=== PATIENT | female | born 1960 | race Caucasian/White ===

== ENCOUNTER 2017-08-28 10:07 | Emergency (ER) | payer SELFPAY ==
[~2017-08-28] VITALS: Ht 162.6 cm; Wt 114.8 kg
[~2017-08-28 10:07] MED LIST: ALBU17AE3 IH; BUPR150T6 PO; BUPR75TA5 PO; CYCL5TAB PO; DCS100C PO; FLUT1DIS26 IH; GLUC-132 PO; HCTZ12.5T PO; HYDR-3454 PO; HYDR25TA4 PO; IBUP800T26 PO; LOSA25TA5 PO; MELA1TAB11 PO; MULT-974 PO; OMEP-10 PO; PRX20T PO; RABE20TA PO; TERB125G PO; TERB250T10 PO; TRAM50TA2 PO
--- OUTSIDE RECORDS SUMMARY | 2017-08-28 10:14 | XMS REPORT ---
Author Author JENNIFER CANCINO [facility] Address [address] [place] [address] Care Team Providers Care Criminal Justice Social Worker Name Role Phone JENNIFER CANCINO Unavailable PROBLEMS Type Condition ICD9-CM Code LDB60-BS Code Onset Dates Condition Status SNOMED Code Problem Edema, unspecified type R60.9 Active 547569731 Problem Mild persistent asthma without complication J45.30 Active 471697481 Problem Arthralgia, unspecified joint M25.50 Active 02682436 Problem Essential hypertension I10 Active 54526602 Problem Gastroesophageal reflux disease with esophagitis K21.0 Active 250734939 ALLERGIES Unknown Allergies SOCIAL HISTORY No smoking Hx information available PLAN OF CARE VITAL SIGNS MEDICATIONS Medication Instructions Dosage Frequency Start Date End Date Duration Status Tramadol HCl 50 mg TAKE ONE TABLET BY MOUTH THREE TIMES DAILY PRN 28 days Active RESULTS No Results PROCEDURES No Known procedures IMMUNIZATIONS No Known Immunizations
--- OUTSIDE RECORDS SUMMARY | 2017-08-28 10:14 | XMS REPORT ---
Author Author JENNIFER CANCINO [facility] Address [address] [place] [address] Care Team Providers Care Bead Forming Machine Operator Name Role Phone JENNIFER CANCINO Unavailable PROBLEMS Type Condition ICD9-CM Code MOU00-ZW Code Onset Dates Condition Status SNOMED Code Problem Seasonal allergic rhinitis due to pollen J30.1 Active 47919268 Problem Essential hypertension I10 Active 24139858 Problem Arthralgia, unspecified joint M25.50 Active 87086170 Problem Edema, unspecified type R60.9 Active 557338045 Problem Mild persistent asthma without complication J45.30 Active 707780777 Problem Gastroesophageal reflux disease with esophagitis K21.0 Active 201186437 ALLERGIES Unknown Allergies SOCIAL HISTORY No smoking Hx information available PLAN OF CARE VITAL SIGNS MEDICATIONS Medication Instructions Dosage Frequency Start Date End Date Duration Status Tramadol HCl 50 mg TAKE ONE TABLET BY MOUTH THREE TIMES DAILY PRN 28 days Active RESULTS No Results PROCEDURES No Known procedures IMMUNIZATIONS No Known Immunizations
--- OUTSIDE RECORDS SUMMARY | 2017-08-28 10:15 | XMS REPORT ---
Author Author JENNIFER CANCION Organization [employer] Address Unknown Phone Unavailable Care Team Providers Care Spaghetti Press Helper Name Role Phone JENNIFER CANCINO CP Unavailable Allergies No Known Allergies Problems Problem Type Condition Code Onset Dates Condition Status Problem Mild persistent asthma without complication J45.30 Active Problem Essential hypertension I10 Active Problem Edema, unspecified type R60.9 Active Problem Gastroesophageal reflux disease with esophagitis K21.0 Active Problem Arthralgia, unspecified joint M25.50 Active Medications Medication Code System Code Instructions Start Date End Date Status Dosage Tramadol HCl [facility] [address]-74 50 mg TAKE ONE TABLET BY MOUTH THREE TIMES DAILY PRN Results No Known Results Summary Purpose eClinicalWorks Submission
--- OUTSIDE RECORDS SUMMARY | 2017-08-28 10:15 | XMS REPORT ---
Author Author JENNIFER CANCINO Organization [facility] Address [address] [place] [address] Care Team Providers Care Food Service Team Member Name Role Phone JULITA JENNIFER Unavailable PROBLEMS Type Condition ICD9-CM Code JAD07-CP Code Onset Dates Condition Status SNOMED Code Problem Seasonal allergic rhinitis due to pollen J30.1 Active 54384594 Problem Essential hypertension I10 Active 52734393 Problem Arthralgia, unspecified joint M25.50 Active 66689919 Problem Edema, unspecified type R60.9 Active 971500898 Problem Mild persistent asthma without complication J45.30 Active 764006243 Problem Gastroesophageal reflux disease with esophagitis K21.0 Active 920901987 ALLERGIES No Information SOCIAL HISTORY Never Assessed PLAN OF CARE VITAL SIGNS MEDICATIONS Medication Instructions Dosage Frequency Start Date End Date Duration Status Tramadol HCl 50 mg TAKE ONE TABLET BY MOUTH THREE TIMES DAILY PRN 28 days Active RESULTS No Results PROCEDURES No Known procedures IMMUNIZATIONS No Known Immunizations MEDICAL (GENERAL) HISTORY Type Description Date Medical History hypertension Medical History asthma Medical History depression Medical History mood disorder Medical History hx of alcohol abuse Surgical History section 1989 Surgical History Cholecystectomy 2013 Surgical History echocardiagram 01/2016 Hospitalization History , surgeries 1989
--- OUTSIDE RECORDS SUMMARY | 2017-08-28 10:15 | XMS REPORT ---
Author JENNIFER Richards Organization [employer] Address Unknown Phone Unavailable Care Team Providers Care Scorer Helper Name Role Phone JENNIFER CANCINO CP Unavailable Allergies No Known Allergies Problems Problem Type Condition Code Onset Dates Condition Status Problem Calculus of gallbladder without mention of cholecystitis or obstruction 574.20 Active Problem Pain in joint, ankle and foot 719.47 Active Problem Asthma 493.90 Active Problem Dermatophytosis of nail 110.1 Active Problem Unspecified gastritis and gastroduodenitis without mention of hemorrhage 535.50 Active Problem Plantar fascial fibromatosis 728.71 Active Medications No Known Medications Results No Known Results Summary Purpose [employer]ClinicalWorks Submission
--- OUTSIDE RECORDS SUMMARY | 2017-08-28 10:15 | XMS REPORT ---
Author JENNIFER Richards [facility] eClinical[employer] Address Unknown Phone Unavailable Care Team Providers Care Forklift Material Handler Name Role Phone JENNIFER CANCINO CP Unavailable Allergies, Adverse Reactions, Alerts Substance Reaction Event Type Naprosyn itching Drug Allergy Micardis Info Not Available Drug Allergy Hydrocodone Bitartrate itching Drug Allergy Celebrex swelling Drug Allergy Doxycycline scalp rash Drug Allergy Problems Problem Type Condition Code Onset Dates Condition Status Problem Calculus of gallbladder without mention of cholecystitis or obstruction 574.20 Active Problem Pain in joint, ankle and foot 719.47 Active Problem Asthma 493.90 Active Problem Dermatophytosis of nail 110.1 Active Assessment Pain in left knee M25.562 Active Problem Unspecified gastritis and gastroduodenitis without mention of hemorrhage 535.50 Active Problem Plantar fascial fibromatosis 728.71 Active Medications Medication Code System Code Instructions Start Date End Date Status Dosage Losartan Potassium [facility] [address]-02 25 MG Once a day 1 tablet ProAir HFA [facility] [address]-88 90 mcg/actuation 4 times a day August 30, 2014 2 puffs Hydrochlorothiazide [facility] [address]-51 25 MG Once a day November 16, 2013 1 tablet Omeprazole [facility] [address]-22 20 MG Once a day 1 capsule Albuterol Sulfate [facility] [address]-97 2.5 mg /3 mL (0.083 %) August 30, 2014 inhale 3 milliliters (2.5 mg) by nebulization route 4 times per day PRN for wheezing or cough Paxil [facility] [address]-27 40 MG Orally Once a day 1 tablet in the morning Cyclobenzaprine HCl [facility] [address]-53 5 MG Orally 2 times a day 1 tablet Tramadol HCl [facility] [address]-50 50 MG TAKE ONE TABLET BY MOUTH THREE TIMES DAILY PRN Advair Diskus [facility] [address]-31 250-50 MCG/DOSE Inhalation Twice a day December 01, 2014 1 puff Ibuprofen NDC [address]-20 800 MG Orally Three times a day 1 tablet Wellbutrin XL [facility] [address]-61 150 MG Orally Once a day 1 tablet in the morning Procedures Procedure Coding System Code Date Office Visit, Est Pt., Level 3 CPT-4 55531 Jun 20, 2015 X-RAY EXAM OF KNEE, 1 OR 2 CPT-4 31475 Jun 20, 2015 Vital Signs Date/Time: Jun 20, 2015 Temperature 97.7 F Weight 271.6 lbs Height 64 in BMI 46.61 Index Blood Pressure Diastolic 85 mmHg Blood Pressure Systolic 140 mmHg Cardiac Monitoring Heart Rate 88 bpm Results No Known Results Summary Purpose eClinicalWorks Submission
--- OUTSIDE RECORDS SUMMARY | 2017-08-28 10:15 | XMS REPORT ---
Author Author JENNIFER CANCINO [facility] Address [address] [place] [address] Care Team Providers Care Rand Butter Name Role Phone JENNIFER CANCINO Unavailable PROBLEMS Type Condition ICD9-CM Code DXH39-FP Code Onset Dates Condition Status SNOMED Code Problem Edema, unspecified type R60.9 Active 651944067 Problem Mild persistent asthma without complication J45.30 Active 767302311 Problem Arthralgia, unspecified joint M25.50 Active 55737806 Problem Essential hypertension I10 Active 22054527 Problem Gastroesophageal reflux disease with esophagitis K21.0 Active 678012987 ALLERGIES Unknown Allergies SOCIAL HISTORY No smoking Hx information available PLAN OF CARE VITAL SIGNS MEDICATIONS Medication Instructions Dosage Frequency Start Date End Date Duration Status Tramadol HCl 50 mg TAKE ONE TABLET BY MOUTH THREE TIMES DAILY PRN 20 days Active RESULTS No Results PROCEDURES No Known procedures IMMUNIZATIONS No Known Immunizations
--- OUTSIDE RECORDS SUMMARY | 2017-08-28 10:16 | XMS REPORT ---
Author Author EMIL SHRESTHA Organization [employer] Address Unknown Phone Unavailable Care Team Providers Care Auto Parts Professional Name Role Phone EMIL SHRESTHA CP Unavailable Allergies, Adverse Reactions, Alerts Substance [...] Problem Dermatophytosis of nail 110.1 Active Assessment Upper respiratory symptom R09.89 Active Problem Unspecified gastritis and gastroduodenitis without mention of hemorrhage 535.50 Active Problem Plantar fascial fibromatosis 728.71 Active Medications Medication Code System Code Instructions Start Date End Date Status Dosage ProAir HFA [facility] [address]-33 90 mcg/actuation 4 times a day August 30, 2014 2 puffs Losartan Potassium [facility] [address]-43 25 MG 1 time a day TAKE ONE TABLET Wellbutrin XL [facility] [address]-65 150 MG Orally Once a day 1 tablet in the morning Paxil [facility] [address]-69 40 MG Orally Once a day 1 tablet in the morning Omeprazole [facility] 17934921091 20 MG TAKE ONE CAPSULE BY MOUTH ONCE DAILY BEFORE A MEAL Tramadol HCl [facility] [address]-75 50 MG TAKE ONE TABLET BY MOUTH THREE TIMES DAILY PRN Hydrochlorothiazide [facility] [address]-25 25 mg 1 TAB orally once a day November 16, 2013 take 1 tablet (25 mg) by oral route once daily Albuterol Sulfate [facility] [address]-54 2.5 mg /3 mL (0.083 %) August 30, 2014 inhale 3 milliliters (2.5 mg) by nebulization route 4 times per day PRN for wheezing or cough Advair Diskus [facility] [address]-66 250-50 MCG/DOSE Inhalation Twice a day December 01, 2014 1 puff Cyclobenzaprine HCl [facility] [address]-40 5 MG Orally 2 times a day 1 tablet Ibuprofen [facility] [address]-35 800 MG Orally Three times a day 1 tablet Procedures Procedure Coding System Code Date Office Visit, Est Pt., Level 3 CPT-4 95053 May 28, 2015 MEASURE BLOOD OXYGEN LEVEL CPT-4 58655 May 28, 2015 Vital Signs Date/Time: May 28, 2015 Temperature 97.3 F Weight 274 lbs Height 64 in Oximetry 97 % Blood Pressure Diastolic 90 mmHg Blood Pressure Systolic 132 mmHg Cardiac Monitoring Heart Rate 73 bpm BMI 47.03 Index Results No Known Results Summary Purpose eClinicalWorks Submission
--- OUTSIDE RECORDS SUMMARY | 2017-08-28 10:16 | XMS REPORT ---
Author Author JENNIFER CANCINO Organization [employer] Address Unknown Phone Unavailable Care Team Providers Care Radiography Technician Name Role Phone JENNIFER CANCINO CP Unavailable Allergies No Known Allergies Problems Problem Type Condition Code Onset Dates Condition Status Problem Mild persistent asthma without complication J45.30 Active Problem Essential hypertension I10 Active Problem Edema, unspecified type R60.9 Active Assessment Mild persistent asthma without complication J45.30 Active Problem Gastroesophageal reflux disease with esophagitis K21.0 Active Problem Arthralgia, unspecified joint M25.50 Active Medications Medication Code System Code Instructions Start Date End Date Status Dosage Incruse Ellipta [facility] [address]-96 62.5 MCG/INH Inhalation Once a day 1 puff Results No Known Results Summary Purpose eClinicalWorks Submission
--- OUTSIDE RECORDS SUMMARY | 2017-08-28 10:16 | XMS REPORT ---
Author Author JENNIFER CANCINO Organization [facility] Address [address] [place] [address] Care Team Providers Care Outside Installer Apprentice Name Role Phone JULITA JENNIFER Unavailable PROBLEMS Type Condition ICD9-CM Code RDW60-IN Code Onset Dates Condition Status SNOMED Code Problem Seasonal allergic rhinitis due to pollen J30.1 Active 13974711 Problem Essential hypertension I10 Active 63936132 Problem Arthralgia, unspecified joint M25.50 Active 15303845 Problem Edema, unspecified type R60.9 Active 877043056 Problem Mild persistent asthma without complication J45.30 Active 974224337 Problem Gastroesophageal reflux disease with esophagitis K21.0 Active 964025648 ALLERGIES No Information SOCIAL HISTORY Never Assessed PLAN OF CARE VITAL SIGNS MEDICATIONS Medication Instructions Dosage Frequency Start Date End Date Duration Status Albuterol Sulfate 2.5 mg /3 mL (0.083 %) inhale 3 milliliters (2.5 mg) by nebulization route 4 times per day PRN for wheezing or cough Aug, Active Spiriva HandiHaler 18 MCG Inhalation Once a day 1 capsule 24h Aug, 30 days Active RESULTS No Results PROCEDURES No Known procedures IMMUNIZATIONS No Known Immunizations MEDICAL (GENERAL) HISTORY Type Description Date Medical History hypertension Medical History asthma Medical History depression Medical History mood disorder Medical History hx of alcohol abuse Surgical History section 1989 Surgical History Cholecystectomy 2013 Surgical History echocardiagram 01/2016 Hospitalization History , surgeries 1989
--- OUTSIDE RECORDS SUMMARY | 2017-08-28 10:16 | XMS REPORT ---
Author Author JENNIFER CANCINO Organization [facility] Address [address] [place] [address] Care Team Providers Care Attraction Worker Name Role Phone JENNIFER CANCINO Unavailable PROBLEMS Type Condition ICD9-CM Code LAH29-WP Code Onset Dates Condition Status SNOMED Code Problem Seasonal allergic rhinitis due to pollen J30.1 Active 36704583 Problem Essential hypertension I10 Active 43245561 Problem Arthralgia, unspecified joint M25.50 Active 67124970 Problem Edema, unspecified type R60.9 Active 816726751 Problem Mild persistent asthma without complication J45.30 Active 070138257 Problem Gastroesophageal reflux disease with esophagitis K21.0 Active 161362268 ALLERGIES No Information SOCIAL HISTORY Never Assessed PLAN OF CARE VITAL SIGNS MEDICATIONS Medication Instructions Dosage Frequency Start Date End Date Duration Status Tramadol HCl 50 MG Orally 2 times a day as needed TAKE ONE TABLET BY MOUTH THREE TIMES [...]
--- OUTSIDE RECORDS SUMMARY | 2017-08-28 10:16 | XMS REPORT ---
Author Author JENNIFER CANCINO Organization [employer] Address Unknown Phone Unavailable Care Team Providers Care Dyer And Washer Name Role Phone JENNIFER CANCINO CP Unavailable [...] Date End Date Status Dosage Tramadol HCl [facility] [address]-23 50 MG TAKE ONE TABLET BY MOUTH THREE TIMES DAILY PRN Results No Known Results Summary Purpose eClinicalWorks Submission
--- OUTSIDE RECORDS SUMMARY | 2017-08-28 10:17 | XMS REPORT ---
Author JENNIFER Richards Organization [employer] Address Unknown Phone Unavailable Care Team Providers Care Cashier Office Name Role Phone JENNIFER CANCINO CP Unavailable [...]
--- OUTSIDE RECORDS SUMMARY | 2017-08-28 10:17 | XMS REPORT ---
Author Author JENNIFER CANCINO Organization [employer] Address Unknown Phone Unavailable Care Team Providers Care Ticket Taker Ferryboat Name Role Phone JENNIFER CANCINO CP Unavailable [...] Date End Date Status Dosage Tramadol HCl [facility] [address]-43 50 mg Orally TAKE ONE TABLET BY MOUTH THREE TIMES DAILY PRN Results No Known Results Summary Purpose eClinicalWorks Submission
--- OUTSIDE RECORDS SUMMARY | 2017-08-28 10:17 | XMS REPORT ---
Author JENNIFER iRchards [facility] eClinicalWorks Address Unknown Phone Unavailable Care Team Providers Care Health Program Specialist Name Role Phone JENNIFER CANCINO CP Unavailable [...] Problem Edema, unspecified type R60.9 Active Assessment Restrictive lung disease J98.4 Active Problem Gastroesophageal reflux disease with esophagitis K21.0 Active Problem Arthralgia, unspecified joint M25.50 Active Medications Medication Code System Code Instructions Start Date End Date Status Dosage Proventil HFA [facility] [address]-23 108 (90 Base) MCG/ACT Inhalation every 4 hrs Feb 07, 2016 2 puffs as needed Tramadol HCl [facility] [address]-44 50 mg Orally TAKE ONE TABLET BY MOUTH THREE TIMES DAILY PRN Omeprazole [facility] [address]-08 20 mg Once a day 1 capsule Losartan Potassium [facility] [address]-35 25 MG Once a day 1 tablet Cyclobenzaprine HCl [facility] [address]-02 5 MG Orally 2 times a day 1 tablet Advair Diskus [facility] [address]-75 250-50 MCG/DOSE Inhalation Twice a day December 01, 2014 1 puff Ibuprofen [facility] [address]-20 800 MG Orally Three times a day 1 tablet Hydrochlorothiazide [facility] [address]-37 50 mg Orally Once a day Feb 07, 2016 1 tablet Wellbutrin XL [facility] [address]-36 150 MG Orally Once a day 1 tablet in the morning Paxil [facility] [address]-32 40 MG Orally Once a day 1 tablet in the morning Albuterol Sulfate [facility] [address]-27 2.5 mg /3 mL (0.083 %) August 30, 2014 inhale 3 milliliters (2.5 mg) by nebulization route 4 times per day PRN for wheezing or cough Procedures Procedure Coding System Code Date Office Visit, Est Pt., Level 3 CPT-4 98756 Apr 28, 2016 Vital Signs Date/Time: Apr 28, 2016 Cardiac Monitoring Heart Rate 72 bpm Weight 270.5 lbs Height 64 in BMI 46.43 Index Blood Pressure Diastolic 100 mmHg Blood Pressure Systolic 150 mmHg Results No Known Results Summary Purpose eClinicalWorks Submission
--- OUTSIDE RECORDS SUMMARY | 2017-08-28 10:17 | XMS REPORT ---
Author MANISH Taylor [facility] eClinicalWorks Address Unknown Phone Unavailable Care Team Providers Care Senior Bioinformatics Scientist Name Role Phone MANISH CONNOR CP Unavailable Allergies, Adverse Reactions, Alerts Substance Reaction Event Type Naprosyn itching Drug Allergy Micardis Info Not Available Drug Allergy Hydrocodone Bitartrate itching Drug Allergy Celebrex swelling Drug Allergy Doxycycline scalp rash Drug Allergy Problems Problem Type Condition Code Onset Dates Condition Status Assessment Arthralgia, unspecified joint M25.50 Active Assessment Mild persistent asthma without complication J45.30 Active Assessment Gastroesophageal reflux disease with esophagitis K21.0 Active Assessment Major depressive disorder with single episode, remission status unspecified F32.9 Active Problem Mild persistent asthma without complication J45.30 Active Problem Essential hypertension I10 Active Problem Edema, unspecified type R60.9 Active Assessment Edema, unspecified type R60.9 Active Assessment Essential hypertension I10 Active Problem Gastroesophageal reflux disease with esophagitis K21.0 Active Problem Arthralgia, unspecified joint M25.50 Active Medications Medication Code System Code Instructions Start Date End Date Status Dosage Advair Diskus [facility] [address]-30 250-50 MCG/DOSE Inhalation Twice a day December 01, 2014 1 puff Losartan Potassium [facility] [address]-25 25 MG Once a day 1 tablet Ibuprofen [facility] [address]-88 800 MG Orally Three times a day 1 tablet Hydrochlorothiazide [facility] [address]-91 25 MG Once a day November 16, 2013 1 tablet Wellbutrin XL [facility] [address]-07 150 MG Orally Once a day 1 tablet in the morning Tramadol HCl [facility] [address]-04 50 MG TAKE ONE TABLET BY MOUTH THREE TIMES DAILY PRN Albuterol Sulfate [facility] [address]-19 2.5 mg /3 mL (0.083 %) August 30, 2014 inhale 3 milliliters (2.5 mg) by nebulization route 4 times per day PRN for wheezing or cough Omeprazole [facility] [address]-83 20 MG Once a day 1 capsule Paxil [facility] [address]-44 40 MG Orally Once a day 1 tablet in the morning ProAir HFA [facility] [address]-69 90 mcg/actuation 4 times a day August 30, 2014 2 puffs Procedures Procedure Coding System Code Date Office Visit, Est Pt., Level 4 CPT-4 06588 Jan 29, 2016 CHEST X-RAY CPT-4 30941 Jan 29, 2016 Vital Signs Date/Time: Jan 29, 2016 Cardiac Monitoring Heart Rate 92 bpm Weight 272.0 lbs Height 64 in BMI 46.68 Index Blood Pressure Diastolic 99 mmHg Blood Pressure Systolic 143 mmHg Results No Known Results Summary Purpose eClinicalWorks Submission
--- OUTSIDE RECORDS SUMMARY | 2017-08-28 10:17 | XMS REPORT ---
Author MANISH Taylor [facility] eClinicalWorks Address Unknown Phone Unavailable Care Team Providers Care Youth Program Director Name Role Phone MANISH CONNOR CP Unavailable [...] Problem Edema, unspecified type R60.9 Active Assessment Sore throat J02.9 Active Assessment Post-nasal drainage R09.82 Active Problem Gastroesophageal reflux disease with esophagitis K21.0 Active Problem Arthralgia, unspecified joint M25.50 Active Medications Medication Code System Code Instructions Start Date End Date Status Dosage Ibuprofen [facility] [address]-29 800 MG Orally Three times a day 1 tablet Tramadol HCl [facility] [address]-76 50 mg TAKE ONE TABLET BY MOUTH THREE TIMES DAILY PRN Albuterol Sulfate [facility] [address]-29 2.5 mg /3 mL (0.083 %) August 30, 2014 inhale 3 milliliters (2.5 mg) by nebulization route 4 times per day PRN for wheezing or cough PredniSONE [facility] [address]-88 10 mg Orally twice a day Mar 29, 2016Mar 1 tablet Lidocaine Viscous [facility] [address]-14 2 % Mouth/Throat 4 times a day prn Mar 29, 2016 10 cc Incruse Ellipta [facility] [address]-89 62.5 MCG/INH Inhalation Once a day 1 puff Advair Diskus [facility] [address]-97 250-50 MCG/DOSE Inhalation Twice a day December 01, 2014 1 puff Paxil [facility] [address]-43 40 MG Orally Once a day 1 tablet in the morning Wellbutrin XL [facility] [address]-19 150 MG Orally Once a day 1 tablet in the morning Proventil HFA [facility] [address]-18 108 (90 Base) MCG/ACT Inhalation every 4 hrs Feb 07, 2016 2 puffs as needed Hydrochlorothiazide [facility] [address]-61 50 mg Orally Once a day Feb 07, 2016 1 tablet Omeprazole [facility] [address]-54 20 MG Once a day 1 capsule Losartan Potassium [facility] [address]-55 25 MG Once a day 1 tablet Procedures Procedure Coding System Code Date Office Visit, Est Pt., Level 3 CPT-4 76755 Mar 29, 2016 STREP A ASSAY W/OPTIC CPT-4 18827 Mar 29, 2016 Vital Signs Date/Time: Mar 29, 2016 Cardiac Monitoring Heart Rate 82 bpm Weight 267.6 lbs Height 64 in BMI 45.93 Index Blood Pressure Diastolic 88 mmHg Blood Pressure Systolic 134 mmHg Results Name Result Date Reference Range Unit Abnormality Flag STREP A (IN HOUSE) ----STREP A Negative [id number] ----Control + [id number] ----Lot # [id number] ----Exp date 08/15/[id number] Summary Purpose eClinicalWorks Submission
--- OUTSIDE RECORDS SUMMARY | 2017-08-28 10:17 | XMS REPORT ---
Author Author JENNIFER CANCINO Organization eClinicalWorks Address Unknown Phone Unavailable Care Team Providers Care Seo Associate Name Role Phone JENNIFER CANCINO CP Unavailable [...] Date End Date Status Dosage Advair Diskus [facility] [address]-33 250-50 MCG/DOSE Inhalation Twice a day December 01, 2014 1 puff Results No Known Results Summary Purpose eClinicalWorks Submission
--- OUTSIDE RECORDS SUMMARY | 2017-08-28 10:17 | XMS REPORT ---
Author Author JENNIFER CANCINO Organization eClinicalWorks Address Unknown Phone Unavailable Care Team Providers Care Retanned Leather Roller Name Role Phone JENNIFER CANCINO CP Unavailable [...] Date End Date Status Dosage Tramadol HCl [facility] [address]-04 50 MG TAKE ONE TABLET BY MOUTH THREE TIMES DAILY PRN Results No Known Results Summary Purpose eClinicalWorks Submission
--- OUTSIDE RECORDS SUMMARY | 2017-08-28 10:17 | XMS REPORT ---
Author JENNIFER Richards [facility] eClinicalWorks Address Unknown Phone Unavailable Care Team Providers Care Wood Cutter Name Role Phone JENNIFER CANCINO CP Unavailable [...] Problem Dermatophytosis of nail 110.1 Active Assessment Eustachian tube dysfunction, left H69.82 Active Problem Unspecified gastritis and gastroduodenitis without mention of hemorrhage 535.50 Active Problem Plantar fascial fibromatosis 728.71 Active Medications Medication Code System Code Instructions Start Date End Date Status Dosage Wellbutrin XL [facility][NOTE 3] [address]-63 150 MG Orally Once a day 1 tablet in the morning Paxil [facility][NOTE 3] [address]-08 40 MG Orally Once a day 1 tablet in the morning Albuterol Sulfate [facility][NOTE 3] [address]-45 2.5 mg /3 mL (0.083 %) August 30, 2014 inhale 3 milliliters (2.5 mg) by nebulization route 4 times per day PRN for wheezing or cough PredniSONE [facility][NOTE 3] [address]-05 20 MG Orally Twice a day Mar 21, 2015Mar 1 tablet with food or milk Omeprazole [facility][NOTE 3] 77548216716 20 MG TAKE ONE CAPSULE BY MOUTH ONCE DAILY BEFORE A MEAL Advair Diskus [facility][NOTE 3] [address]-23 250-50 MCG/DOSE Inhalation Twice a day December 01, 2014 1 puff Cyclobenzaprine HCl [facility][NOTE 3] [address]-92 5 MG Orally 2 times a day 1 tablet Cetirizine HCl [facility][NOTE 3] [address]-47 10 MG Orally Once a day Mar 21, 2015 1 tablet as needed Ibuprofen [facility][NOTE 3] [address]-51 800 MG Orally Three times a day 1 tablet Losartan Potassium [facility][NOTE 3] [address]-07 25 MG 1 time a day TAKE ONE TABLET ProAir HFA [facility][NOTE 3] [address]-90 90 mcg/actuation 4 times a day August 30, 2014 2 puffs Hydrochlorothiazide [facility][NOTE 3] [address]-58 25 mg 1 TAB orally once a day November 16, 2013 take 1 tablet (25 mg) by oral route once daily Procedures Procedure Coding System Code Date Office Visit, Est Pt., Level 3 CPT-4 33345 Mar 21, 2015 Vital Signs Date/Time: Mar 21, 2015 Temperature 97.2 F Weight 263.4 lbs Height 64 in BMI 45.21 Index Blood Pressure Diastolic 86 mmHg Blood Pressure Systolic 128 mmHg Cardiac Monitoring Heart Rate 72 bpm Results No Known Results Summary Purpose eClinicalWorks Submission
--- OUTSIDE RECORDS SUMMARY | 2017-08-28 10:18 | XMS REPORT ---
Author Author JENNIFER CANCINO Organization eClinicalWorks Address Unknown Phone Unavailable Care Team Providers Care Centerless Grinder Tender Name Role Phone JENNIFER CANCINO CP Unavailable Allergies No Known Allergies Problems Problem Type Condition ICD-9 Code Onset Dates Condition Status Problem Calculus [...] Date End Date Status Dosage Tramadol HCl [facility] [address]-43 50 MG PRN Mar 09, 2015 TAKE ONE TABLET BY MOUTH THREE TIMES DAILY Results No Known Results Summary Purpose eClinicalWorks Submission
--- OUTSIDE RECORDS SUMMARY | 2017-08-28 10:18 | XMS REPORT ---
Author Author EJNNIFER CANCINO Organization eClinicalWorks Address Unknown Phone Unavailable Care Team Providers Care Risk Assessor Name Role Phone JENNIFER CANCINO CP Unavailable [...] Tramadol HCl [facility] [address]-10 50 MG TAKE ONE TABLET BY MOUTH THREE TIMES DAILY PRN Results No Known Results Summary Purpose eClinicalWorks Submission
--- OUTSIDE RECORDS SUMMARY | 2017-08-28 10:18 | XMS REPORT ---
Author Author MANISH CONNOR [facility] Address [address] [place] [address] Care Team Providers Care Turret Lathe Tender Name Role Phone MANISH CONNOR Unavailable PROBLEMS Type Condition ICD9-CM Code [id number] Code Onset Dates Condition Status SNOMED Code Problem Edema, unspecified type R60.9 Active 756335900 Problem Mild persistent asthma without complication J45.30 Active 099075207 Problem Arthralgia, unspecified joint M25.50 Active 19974462 Problem Essential hypertension I10 Active 13476472 Problem Gastroesophageal reflux disease with esophagitis K21.0 Active 382494766 ALLERGIES Unknown Allergies SOCIAL HISTORY No smoking Hx information available PLAN OF CARE VITAL SIGNS MEDICATIONS Unknown Medications RESULTS No Results PROCEDURES No Known procedures IMMUNIZATIONS No Known Immunizations
--- OUTSIDE RECORDS SUMMARY | 2017-08-28 10:18 | XMS REPORT ---
Author JENNIFER Richards Organization eClinicalWorks Address Unknown Phone Unavailable Care Team Providers Care Chemical Processing Laborer Name Role Phone JENNIFER CANCINO CP Unavailable [...]
--- OUTSIDE RECORDS SUMMARY | 2017-08-28 10:18 | XMS REPORT ---
Author Author JENNIFER CANCINO [facility] Address [address] [place] [address] Care Team Providers Care Band Salvager Name Role Phone JENNIFER CANCINO Unavailable PROBLEMS Type Condition ICD9-CM Code [id number] Code Onset Dates Condition Status SNOMED Code Problem Seasonal allergic rhinitis due to pollen J30.1 Active 70645230 Problem Essential hypertension I10 Active 75484307 Problem Arthralgia, unspecified joint M25.50 Active 62810926 Problem Edema, unspecified type R60.9 Active 679978287 Problem Mild persistent asthma without complication J45.30 Active 296365431 Problem Gastroesophageal reflux disease with esophagitis K21.0 Active 849536592 ALLERGIES Unknown Allergies SOCIAL HISTORY No smoking Hx information available PLAN OF CARE VITAL SIGNS MEDICATIONS Unknown Medications RESULTS No Results PROCEDURES No Known procedures IMMUNIZATIONS No Known Immunizations
--- OUTSIDE RECORDS SUMMARY | 2017-08-28 10:18 | XMS REPORT ---
Author Author JENNIFER CANCINO Organization [facility] Address [address] [place] [address] Care Team Providers Care Music Department Chair Name Role Phone JENNIFER CANCINO Unavailable PROBLEMS Type Condition ICD9-CM Code [id number] Code Onset Dates Condition Status SNOMED Code Problem Seasonal allergic rhinitis due to pollen J30.1 Active 24179457 Problem Edema, unspecified type R60.9 Active 546768724 Problem Gastroesophageal reflux disease with esophagitis K21.0 Active 971412258 Problem Arthralgia, unspecified joint M25.50 Active 26897846 Problem Mild persistent asthma without complication J45.30 Active 296332322 Problem Essential hypertension I10 Active 78045993 ALLERGIES Unknown Allergies SOCIAL HISTORY No smoking Hx information available PLAN OF CARE VITAL SIGNS MEDICATIONS Medication Instructions Dosage Frequency Start Date End Date Duration Status Albuterol Sulfate 2.5 mg /3 mL (0.083 %) inhale 3 milliliters (2.5 mg) by nebulization route 4 times per day PRN for wheezing or cough Aug, Active RESULTS No Results PROCEDURES No Known procedures IMMUNIZATIONS No Known Immunizations
--- OUTSIDE RECORDS SUMMARY | 2017-08-28 10:18 | XMS REPORT ---
Author JENNIFER Richards [facility] eClinicalWorks Address Unknown Phone Unavailable Care Team Providers Care Shredder Tender Peat Name Role Phone JENNIFER CANCINO CP Unavailable Allergies, Adverse Reactions, Alerts Substance Reaction Event Type Naprosyn itching Drug Allergy Micardis Info Not Available Drug Allergy Hydrocodone Bitartrate itching Drug Allergy Celebrex swelling Drug Allergy Doxycycline scalp rash Drug Allergy Problems Problem Type Condition Code Onset Dates Condition Status Assessment Knee pain, left M25.562 Active Problem Calculus of gallbladder without mention of cholecystitis or obstruction 574.20 Active Problem Pain in joint, ankle and foot 719.47 Active Problem Asthma 493.90 Active Problem Dermatophytosis of nail 110.1 Active Assessment Costochondritis M94.0 Active Problem Unspecified gastritis and gastroduodenitis without mention of hemorrhage 535.50 Active Problem Plantar fascial fibromatosis 728.71 Active Medications Medication Code System Code Instructions Start Date End Date Status Dosage Cyclobenzaprine HCl [facility] [address]-18 5 MG Orally 2 times a day 1 tablet Omeprazole [facility] 20644070332 20 MG TAKE ONE CAPSULE BY MOUTH ONCE DAILY BEFORE A MEAL Albuterol Sulfate [facility] [address]-71 2.5 mg /3 mL (0.083 %) August 30, 2014 inhale 3 milliliters (2.5 mg) by nebulization route 4 times per day PRN for wheezing or cough ProAir HFA [facility] [address]-68 90 mcg/actuation 4 times a day August 30, 2014 2 puffs Paxil [facility] [address]-93 40 MG Orally Once a day 1 tablet in the morning Wellbutrin XL [facility] [address]-66 150 MG Orally Once a day 1 tablet in the morning Hydrochlorothiazide [facility] [address]-09 25 mg 1 TAB orally once a day November 16, 2013 take 1 tablet (25 mg) by oral route once daily Losartan Potassium [facility] [address]-20 25 MG 1 time a day TAKE ONE TABLET Tramadol HCl [facility] [address]-55 50 MG TAKE ONE TABLET BY MOUTH THREE TIMES DAILY PRN Ibuprofen [facility] [address]-77 800 MG Orally Three times a day 1 tablet Advair Diskus [facility] [address]-20 250-50 MCG/DOSE Inhalation Twice a day December 01, 2014 1 puff Procedures Procedure Coding System Code Date Office Visit, Est Pt., Level 3 CPT-4 68005 Apr 13, 2015 Vital Signs Date/Time: Apr 13, 2015 Temperature 96.6 F Weight 265 lbs Height 64 in BMI 45.48 Index Blood Pressure Diastolic 72 mmHg Blood Pressure Systolic 110 mmHg Cardiac Monitoring Heart Rate 68 bpm Results No Known Results Summary Purpose eClinicalWorks Submission
--- OUTSIDE RECORDS SUMMARY | 2017-08-28 10:19 | XMS REPORT ---
Author Author JENNIFER CANCINO Organization [facility] Address [address] [place] [address] Care Team Providers Care Speech Coach Name Role Phone JULITA JENNIFER Unavailable PROBLEMS Type Condition ICD9-CM Code [id number] Code Onset Dates Condition Status SNOMED Code Problem Seasonal allergic rhinitis due to pollen J30.1 Active 81660378 Problem Essential hypertension I10 Active 23787514 Problem Arthralgia, unspecified joint M25.50 Active 10661325 Problem Edema, unspecified type R60.9 Active 286299822 Problem Mild persistent asthma without complication J45.30 Active 018911452 Problem Gastroesophageal reflux disease with esophagitis K21.0 Active 867239232 ALLERGIES No Information SOCIAL HISTORY Never Assessed PLAN OF CARE VITAL SIGNS MEDICATIONS Medication Instructions Dosage Frequency Start Date End Date Duration Status Spiriva Respimat 1.25 MCG/ACT Inhalation Once a day 2 puffs 24h Aug, Active RESULTS No Results PROCEDURES No Known procedures IMMUNIZATIONS No Known Immunizations MEDICAL (GENERAL) HISTORY Type Description Date Medical History hypertension Medical History asthma Medical History depression Medical History mood disorder Medical History hx of alcohol abuse Surgical History section 1989 Surgical History Cholecystectomy 2013 Surgical History echocardiagram 01/2016 Hospitalization History , surgeries 1989
--- OUTSIDE RECORDS SUMMARY | 2017-08-28 10:19 | XMS REPORT ---
Author Author JENNIFER CANCINO Organization eClinicalWorks Address Unknown Phone Unavailable Care Team Providers Care Paper Machine Back Tender Name Role Phone JENNIFER CANCINO CP [...] Date End Date Status Dosage Tramadol HCl [facility] [address]-76 50 MG TAKE ONE TABLET BY MOUTH THREE TIMES DAILY PRN Results No Known Results Summary Purpose eClinicalWorks Submission
--- OUTSIDE RECORDS SUMMARY | 2017-08-28 10:19 | XMS REPORT ---
Author Author MANISH CONNOR [facility] Address [address] [place] [address] Care Team Providers Care Journeyman Molder Name Role Phone CONNOR MANISH Unavailable PROBLEMS Type Condition ICD9-CM Code DEF25-XO Code Onset Dates Condition Status SNOMED Code Problem Edema, unspecified type R60.9 Active 203969738 Problem Mild persistent asthma without complication J45.30 Active 710347138 Problem Arthralgia, unspecified joint M25.50 Active 60105311 Assessment Mild persistent asthma without complication J45.30 Feb, Active 708225064 Problem Essential hypertension I10 Active 62107227 Problem Gastroesophageal reflux disease with esophagitis K21.0 Active 048755838 ALLERGIES Unknown Allergies SOCIAL HISTORY No smoking Hx information available PLAN OF CARE VITAL SIGNS MEDICATIONS Unknown Medications RESULTS No Results PROCEDURES Procedure Date Ordered Related Diagnosis Body Site PULMONARY FUNCTION TEST (IN-HOUSE) 2016-02-28 N/A RESPIRATORY FLOW VOLUME LOOP Feb 28, 2016 SPIROMETRY Feb 28, 2016 NEB/I DEMO Feb 28, 2016 IMMUNIZATIONS No Known Immunizations
--- OUTSIDE RECORDS SUMMARY | 2017-08-28 10:19 | XMS REPORT ---
Author Author JENNIFER CANCINO Organization eClinicalWorks Address Unknown Phone Unavailable Care Team Providers Care Senior Strategy Manager Name Role Phone JENNIFER CANCINO CP Unavailable [...] Date End Date Status Dosage Tramadol HCl [facility] [address]-26 50 MG TAKE ONE TABLET BY MOUTH THREE TIMES DAILY PRN Results No Known Results Summary Purpose eClinicalWorks Submission
--- OUTSIDE RECORDS SUMMARY | 2017-08-28 10:20 | XMS REPORT ---
Author Author GEETA MANISH Organization [facility] Address [address] [place] [address] Care Team Providers Care Banquet Server On Call Name Role Phone WARNER CONNORE Unavailable PROBLEMS Type Condition ICD9-CM Code ZVO19-GA Code Onset Dates Condition Status SNOMED Code Assessment Gastroesophageal reflux disease without esophagitis K21.9 Feb, Active 593859013 Assessment Major depressive disorder with single episode, remission status unspecified F32.9 Feb, Active 69157117 Problem Edema, unspecified type R60.9 Active 051222958 Problem Mild persistent asthma without complication J45.30 Active 834980859 Problem Arthralgia, unspecified joint M25.50 Active 34525936 Assessment Edema, unspecified type R60.9 Feb, Active 608024417 Problem Essential hypertension I10 Active 16466173 Problem Gastroesophageal reflux disease with esophagitis K21.0 Active 908904185 ALLERGIES Substance Reaction Event Type Date Status Naprosyn itching Drug Allergy Feb, Active Micardis Unknown Drug Allergy Feb, Active Hydrocodone Bitartrate itching Drug Allergy Feb, Active Celebrex swelling Drug Allergy Feb, Active Doxycycline scalp rash Drug Allergy Feb, Active SOCIAL HISTORY No smoking Hx information available PLAN OF CARE VITAL SIGNS Height 64 in 2016-02-07 Weight 269.6 lbs 2016-02-07 Heart Rate 76 bpm 2016-02-07 Respiratory Rate 20 2016-02-07 BMI 46.27 kg/m2 2016-02-07 Blood pressure systolic 130 mmHg 2016-02-07 Blood pressure diastolic 86 mmHg 2016-02-07 MEDICATIONS Medication Instructions Dosage Frequency Start Date End Date Duration Status Wellbutrin XL 150 MG Orally Once a day 1 tablet in the morning 24h Active Ibuprofen 800 MG Orally Three times a day 1 tablet 8h Active Hydrochlorothiazide 50 mg Orally Once a day 1 tablet 24h Feb, 30 day(s) Active Albuterol Sulfate 2.5 mg /3 mL (0.083 %) inhale 3 milliliters (2.5 mg) by nebulization route 4 times per day PRN for wheezing or cough Aug, Active Proventil HFA 108 (90 Base) MCG/ACT Inhalation every 4 hrs 2 puffs as needed 4h Feb, Active Omeprazole 20 MG 1 capsule 24h Active Paxil 40 MG Orally Once a day 1 tablet in the morning 24h Active Advair Diskus 250-50 MCG/DOSE Inhalation Twice a day 1 puff 12h Nov, Active Incruse Ellipta 62.5 MCG/INH Inhalation Once a day 1 puff 24h Active Losartan Potassium 25 MG 1 tablet 24h Active Tramadol HCl 50 MG TAKE ONE TABLET BY MOUTH THREE TIMES DAILY PRN Active RESULTS No Results PROCEDURES Procedure Date Ordered Related Diagnosis Body Site Office Visit, Est Pt., Level 4 Feb 07, 2016 IMMUNIZATIONS No Known Immunizations
--- OUTSIDE RECORDS SUMMARY | 2017-08-28 10:20 | XMS REPORT ---
Author JENNIFER Richards Organization eClinicalWorks Address Unknown Phone Unavailable Care Team Providers Care Service Center Specialist Name Role Phone JENNIFER CANCINO CP [...]
--- OUTSIDE RECORDS SUMMARY | 2017-08-28 10:20 | XMS REPORT ---
Author Author JENNIFER CANCINO [facility] Address [address] [place] [address] Care Team Providers Care Calender Wind Up Helper Name Role Phone JENNIFER CANCINO Unavailable PROBLEMS Type Condition ICD9-CM Code [id number] Code Onset Dates Condition Status SNOMED Code Problem Seasonal allergic rhinitis due to pollen J30.1 Active 08896567 Problem Essential hypertension I10 Active 90629311 Problem Arthralgia, unspecified joint M25.50 Active 22812419 Problem Edema, unspecified type R60.9 Active 348024421 Problem Mild persistent asthma without complication J45.30 Active 745219478 Problem Gastroesophageal reflux disease with esophagitis K21.0 Active 111693018 ALLERGIES No Information SOCIAL HISTORY Never Assessed PLAN OF CARE VITAL SIGNS MEDICATIONS Unknown [...]
--- OUTSIDE RECORDS SUMMARY | 2017-08-28 10:20 | XMS REPORT ---
Author Author JENNIFER CANCINO Organization [facility] Address [address] [place] [address] Care Team Providers Care Edge Inker Name Role Phone JULITA JENNIFER Unavailable PROBLEMS Type Condition ICD9-CM Code CFP33-TW Code Onset Dates Condition Status SNOMED Code Problem Seasonal allergic rhinitis due to pollen J30.1 Active 96383684 Problem Essential hypertension I10 Active 87312908 Problem Arthralgia, unspecified joint M25.50 Active 25964213 Problem Edema, unspecified type R60.9 Active 913369872 Problem Mild persistent asthma without complication J45.30 Active 625254854 Problem Gastroesophageal reflux disease with esophagitis K21.0 Active 867625916 ALLERGIES No Information SOCIAL HISTORY Never Assessed PLAN OF CARE VITAL SIGNS MEDICATIONS Medication Instructions Dosage Frequency Start Date End Date Duration Status Tramadol HCl 50 MG Orally 1 tablet 3 times a day as needed 1 tablet Nov, 28 days Active RESULTS No Results PROCEDURES No Known procedures IMMUNIZATIONS No Known Immunizations MEDICAL (GENERAL) HISTORY Type Description Date Medical History hypertension Medical History asthma Medical History depression Medical History mood disorder Medical History hx of alcohol abuse Surgical History section 1989 Surgical History Cholecystectomy 2013 Surgical History echocardiagram 01/2016 Hospitalization History , surgeries 1989
[2017-08-28 10:40] LABS: BASOPHILS % (AUTO) 0 % (0-10); EOSINOPHILS # (AUTO) 0.1 10^3/uL (0.0-0.3); EOSINOPHILS % (AUTO) 1 % (0-10); HEMATOCRIT 38 % (35-52); HEMOGLOBIN 12.2 G/DL (11.5-16.0); LYMPHOCYTES # (AUTO) 1.8 X 10^3 (1.0-4.0); LYMPHOCYTES % (AUTO) 15 % (12-44); MEAN CORPUSCULAR HEMOGLOBIN 27 PG (25-34); MEAN CORPUSCULAR HGB CONC 33 G/DL (32-36); MEAN CORPUSCULAR VOLUME 84 FL (80-99); MONOCYTES # (AUTO) 1.1 X 10^3 (0.0-1.0); MONOCYTES % (AUTO) 9 % (0-12); NEUTROPHILS # (AUTO) 8.7 X 10^3 (1.8-7.8); NEUTROPHILS % (AUTO) 74 % (42-75); PLATELET COUNT 590 10^3/uL (130-400); RED BLOOD COUNT 4.48 10^6/uL (4.35-5.85); RED CELL DISTRIBUTION WIDTH 13.1 % (10.0-14.5); WHITE BLOOD COUNT 11.7 10^3/uL (4.3-11.0)
[2017-08-28] MEDS ORDERED: ASPIRIN 81 MG CHEW (CHILDREN'S ASA) PO ONE (10:45)
[2017-08-28] MEDS ORDERED: KETOROLAC 30 MG/ML VIAL IVP ONE (10:45)
[2017-08-28 10:53] LABS: INR 1.2 (0.8-1.4)
--- NOTE | 2017-08-28 10:55 | Diagnostic Imaging Report ---
INDICATION: Right-sided pain. COMPARISON: None. FINDINGS: Single frontal view of the chest is obtained. Heart size is normal. The pulmonary vessels appear unremarkable. There is no pneumothorax, mediastinal widening or pleural fluid. Lungs are clear. IMPRESSION: Negative chest. Dictated by: Dictated on workstation # [id number]
[2017-08-28 11:02] LABS: ALANINE AMINOTRANSFERASE 25 U/L (0-55); ALBUMIN 4.1 GM/DL (3.2-4.5); ALKALINE PHOSPHATASE 137 U/L (40-136); AMYLASE 15 U/L (25-125); BILIRUBIN,TOTAL 0.4 MG/DL (0.1-1.0); BUN/CREATININE RATIO 16; CALCIUM 9.9 MG/DL (8.5-10.1); CARBON DIOXIDE 29 MMOL/L (21-32); CHLORIDE 99 MMOL/L (98-107); CREATINE KINASE 77 U/L (29-168); CREATININE SERUM 0.91 MG/DL (0.60-1.30); GFR ESTIMATED > 60; GLUCOSE 106 MG/DL (70-105); LIPASE 6 U/L (8-78); MAGNESIUM 1.8 MG/DL (1.8-2.4); POTASSIUM 3.8 MMOL/L (3.6-5.0); SODIUM 136 MMOL/L (135-145); TOTAL PROTEIN 8.4 GM/DL (6.4-8.2)
[2017-08-28 11:11] LABS: CREATINE KINASE MB 1.8 NG/ML (<6.6)
[2017-08-28] MEDS ORDERED: CATHETER FLUSH 10 ML SYR IV PRN (11:30)
[2017-08-28] MEDS ORDERED: NS 250 ML (IVPB) BAG IV ONE (11:30)
[2017-08-28] MEDS ORDERED: IOHEXOL 350 MG/ML 150 ML (OMNIPAQUE 350) VIAL IV ONE (11:30)
[2017-08-28 12:04] LABS: BILIRUBIN,URINE NEGATIVE (NEGATIVE); CLARITY,URINE CLEAR; COLOR,URINE YELLOW; GLUCOSE, URINE (UA) NEGATIVE (NEGATIVE); KETONES,URINE 1+ (NEGATIVE); LEUKOCYTE ESTERASE ,URINE 2+ (NEGATIVE); NITRITE,URINE NEGATIVE (NEGATIVE); PH,URINE 6.5 (5-9); PROTEIN,URINE 2+ (NEGATIVE); UROBILINOGEN,URINE NORMAL (NORMAL)
[2017-08-28 12:18] LABS: AMPHETAMINE SCREEN, URINE NEGATIVE (NEGATIVE); BARBITURATE SCREEN URINE NEGATIVE (NEGATIVE); BENZODIAZEPINES SCREEN URINE NEGATIVE (NEGATIVE); CANNABINOID SCREEN, URINE NEGATIVE (NEGATIVE); COCAINE SCREEN URINE NEGATIVE (NEGATIVE); METHADONE STAT NEGATIVE (NEGATIVE); METHAMPHETAMINE SCREEN URINE S NEGATIVE (NEGATIVE); OPIATE SCREEN URINE NEGATIVE (NEGATIVE); OXYCODONE STAT NEGATIVE (NEGATIVE); PROPOXYPHENE STAT NEGATIVE (NEGATIVE); TRICYCLIC ANTIDEPRESSANTS SCRE NEGATIVE (NEGATIVE)
[2017-08-28 12:24] LABS: BACTERIA,URINE FEW /HPF
--- NOTE | 2017-08-28 13:15 | Diagnostic Imaging Report ---
INDICATION: Right upper quadrant pain. FINDINGS: CHEST: Post IV contrast-enhanced CT angio chest utilizes PE protocol with 3-D reconstructions. The pulmonary arterial branches are widely patent. There is no PE. The thoracic aorta is patent and nonaneurysmal. There is no pleural or pericardial effusion. There is no pneumothorax. The lungs are clear. No mass or lymphadenopathy. No chest wall fracture deformity. ABDOMEN AND PELVIS: Post IV contrast-enhanced CT abdomen and pelvis performed with sagittal and coronal reconstructions. Lateral and inferior to the right hepatic lobe is a thick-walled complex fluid collection with rim enhancement inferiorly shown to be extraperitoneal. This distorts the contour of the right hepatic lobe laterally, and an element of subcapsular fluid could not be excluded. When the process is measured in aggregate, its maximal dimensions are 11 cm AP x about 3.6 cm transverse. Its dimensions are largely comprised of its thickened peripheral wall with its central fluid element much smaller. The liver itself appeared intrinsically unremarkable. There is no bile duct dilatation. This process is well from the postsurgical gallbladder fossa. The adrenals are negative, and the kidneys are unobstructed and appeared normal. Pancreas and spleen are unremarkable. There is no bile duct dilatation. Colon itself appeared unremarkable and is separable from the acute collection. No abdominal or pelvic free fluid. Uterus, adnexa, and urinary bladder are unremarkable. Aortoiliac and mesenteric vessels are patent and nonaneurysmal. No acute osseous pathology. A small fatty noninflamed chronic inguinal hernia is comprised solely of fat bilaterally. No demonstrated right rib fracture adjacent to the right upper quadrant collection. IMPRESSION: Lateral and inferior to the right hepatic lobe, there is a largely extraperitoneal thick-walled fluid collection suspicious for abscess. The adjacent osseous structures appeared normal, and the liver itself appeared intrinsically unremarkable. Correlate, however, for any recent trauma. Incidental fatty inguinal hernias. No bowel, biliary, or urinary tract obstruction. Negative for PE. The chest was normal. Dictated by: Dictated on workstation # [id number]
--- NOTE | 2017-08-28 14:21 | ED General ---
General Chief Complaint: General Problems/Pain Stated Complaint: CARDIAC ISSUES Nursing Triage Note: Pt here w/ multiple c/o from [facility]. Pt was seen at clinic today for R side pain and RUQ pain. Pt also c/o "flu-like symptoms" for several weeks stating that her "skin hurts" and also reports instances of esophageal narrowing for last several weeks. Pt sent to ER from [facility] for abnormal EKG per patient. Nursing Sepsis Screen: No Definite Risk Allergies and Home Medications Allergies Coded Allergies: No Known Drug Allergies (Unverified , 01/24/14) Home Medications Albuterol 17 Gm Inh, 2 PUFF IH Q4 -6H PRN for COUGH OR WHEEZE, (Reported) Bupropion Hcl 150 Mg Tablet, 150 MG PO DAILY, (Reported) Cyclobenzaprine Hcl 5 Mg Tablet, 5 MG PO TID PRN for TREMORS, (Reported) NEEDED FOR TREMORS Docusate Sodium 100 Mg Cap, 100 MG PO BID Prescribed by: DEVANTE VELASCO on 01/25/14 1442 Fluticasone/Salmeterol 1 Disk Inhp, 1 PUFF IH BID, (Reported) Glucosamine/D3/Boswellia Raisa 1 Each Tablet, 1 TAB PO BID, (Reported) Hydrochlorothiazide 25 Mg Tablet, 25 MG PO DAILY, (Reported) Hydrocodone Bit/Acetaminophen 1 Each Tablet, 1 TAB PO Q4H PRN for PAIN Prescribed by: DEVANTE VELASCO on 01/25/14 1442 Ibuprofen 800 Mg Tablet, 800 MG PO TID PRN for PAIN, (Reported) Losartan Potassium 25 Mg Tablet, 25 MG PO DAILY, (Reported) Multivitamin 1 Each Tablet, 1 TAB PO DAILY, (Reported) Paroxetine Hcl 20 Mg Tablet, 40 MG PO HS, (Reported) Pyridoxine/Melatonin 1 Tab Tablet, 3 MG PO HS, (Reported) Rabeprazole Sodium 20 Mg Tablet.dr, 20 MG PO DAILY, (Reported) Terbinafine Hcl 250 Mg Tablet, 250 MG PO DAILY, (Reported) Tramadol Hcl 50 Mg Tablet, 50 MG PO Q6H PRN for PAIN, (Reported) Past Eyijttx-Woxvfv-Dyhxjx Hx Patient Social History Alcohol Use: Denies Use Recreational Drug Use: No (prior hx of THC, crack, acid, speed - clean x 16 yrs ) Smoking Status: Never a Smoker Recent Foreign Travel: No Contact w/Someone Who Travel: No Recent Infectious Disease Expo: No Recent Hopitalizations: No Immunizations Up To Date Tetanus Booster (TDap): Unknown Seasonal Allergies Seasonal Allergies: No Surgeries History of Surgeries: Yes Surgeries: Section, Gallbladder Respiratory History of Respiratory Disorde: Yes Respiratory Disorders: Asthma Cardiovascular History of Cardiac Disorders: Yes Cardiac Disorders: Hypertension Neurological History of Neurological Disord: No Reproductive System Hx Reproductive Disorders: No Gastrointestinal History of Gastrointestinal Di: Yes Gastrointestinal Disorders: Gastroesophageal Reflux, Gall Bladder Disease Musculoskeletal History of Musculoskeletal Dis: No Endocrine History of Endocrine Disorders: No HEENT History of HEENT Disorders: No Cancer History of Cancer: No Psychosocial History of Psychiatric Problem: Yes Behavioral Health Disorders: Depression Integumentary History of Skin or Integumenta: No Blood Transfusions History of Blood Disorders: No Physical Exam Vital Signs Vital Signs - First Documented 08/28/17 10:20 Temp 98.4 Pulse 84 B/P (MAP) 148/105 (119) O2 Delivery Room Air Capillary Refill : Less Than 3 Seconds Progress/Results/Core Measures Suspected Sepsis Recent Fever Within 48 Hours: No Infection Criteria Present: Suspected New Infection New/Unexplained Altered Menta: No Sepsis Screen: No Definite Risk Sepsis Diagnosis: SIRS Temperature:98.4 Pulse: 84 Respiratory Rate: Laboratory Tests 08/28/17 10:23: White Blood Count 11.7H Blood Pressure 148 /105 Mean: 119 Laboratory Tests 08/28/17 10:23: Creatinine 0.91, INR Comment 1.2, Platelet Count 590H, Total Bilirubin 0.4 Results/Orders Lab Results Laboratory Tests Test 08/28/17 10:23 08/28/17 11:45 Range/Units White Blood Count 11.7 H 4.3-11.0 10^3/uL Red Blood Count 4.48 4.35-5.85 10^6/uL Hemoglobin 12.2 11.5-16.0 G/DL Hematocrit 38 35-52 % Mean Corpuscular Volume 84 80-99 FL Mean Corpuscular Hemoglobin 27 25-34 PG Mean Corpuscular Hemoglobin Concent 33 32-36 G/DL Red Cell Distribution Width 13.1 10.0-14.5 % Platelet Count 590 H 130-400 10^3/uL Mean Platelet Volume 9.0 7.4-10.4 FL Neutrophils (%) (Auto) 74 42-75 % Lymphocytes (%) (Auto) 15 12-44 % Monocytes (%) (Auto) 9 0-12 % Eosinophils (%) (Auto) 1 0-10 % Basophils (%) (Auto) 0 0-10 % Neutrophils # (Auto) 8.7 H 1.8-7.8 X 10^3 Lymphocytes # (Auto) 1.8 1.0-4.0 X 10^3 Monocytes # (Auto) 1.1 H 0.0-1.0 X 10^3 Eosinophils # (Auto) 0.1 0.0-0.3 10^3/uL Basophils # (Auto) 0.0 0.0-0.1 10^3/uL Prothrombin Time 15.0 H 12.2-14.7 SEC INR Comment 1.2 0.8-1.4 Activated Partial Thromboplast Time 37 H 24-35 SEC Sodium Level 136 135-145 MMOL/L Potassium Level 3.8 3.6-5.0 MMOL/L Chloride Level 99 98-107 MMOL/L Carbon Dioxide Level 29 21-32 MMOL/L Anion Gap 8 5-14 MMOL/L Blood Urea Nitrogen 15 7-18 MG/DL Creatinine 0.91 0.60-1.30 MG/DL Estimat Glomerular Filtration Rate > 60 BUN/Creatinine Ratio 16 Glucose Level 106 H 70-105 MG/DL Calcium Level 9.9 8.5-10.1 MG/DL Magnesium Level 1.8 1.8-2.4 MG/DL Total Bilirubin 0.4 0.1-1.0 MG/DL Aspartate Amino Transf (AST/SGOT) 25 5-34 U/L Alanine Aminotransferase (ALT/SGPT) 25 0-55 U/L Alkaline Phosphatase 137 H 40-136 U/L Total Creatine Kinase 77 29-168 U/L Creatine Kinase MB 1.8 <6.6 NG/ML Troponin I < 0.30 <0.30 NG/ML B-Type Natriuretic Peptide 17.2 <100.0 PG/ML Total Protein 8.4 H 6.4-8.2 GM/DL Albumin 4.1 3.2-4.5 GM/DL Amylase Level 15 L 25-125 U/L Lipase 6 L 8-78 U/L Serum Test, Qualitative NEGATIVE NEGATIVE Urine Color YELLOW Urine Clarity CLEAR Urine pH 6.5 5-9 Urine Specific [place] 1.020 1.016-1.022 Urine Protein 2+ H NEGATIVE Urine Glucose (UA) NEGATIVE NEGATIVE Urine Ketones 1+ H NEGATIVE Urine Nitrite NEGATIVE NEGATIVE Urine Bilirubin NEGATIVE NEGATIVE Urine Urobilinogen NORMAL NORMAL MG/DL Urine Leukocyte Esterase 2+ H NEGATIVE Urine RBC (Auto) 1+ H NEGATIVE Urine RBC 5-10 H /HPF Urine WBC 5-10 H /HPF Urine Squamous Epithelial Cells 5-10 /HPF Urine Crystals NONE /LPF Urine Bacteria FEW H /HPF Urine Casts NONE /LPF Urine Mucus SMALL H /LPF Urine Culture Indicated YES Urine Opiates Screen NEGATIVE NEGATIVE Urine Oxycodone Screen NEGATIVE NEGATIVE Urine Methadone Screen NEGATIVE NEGATIVE Urine Propoxyphene Screen NEGATIVE NEGATIVE Urine Barbiturates Screen NEGATIVE NEGATIVE Ur Tricyclic Antidepressants Screen NEGATIVE NEGATIVE Urine Phencyclidine Screen NEGATIVE NEGATIVE Urine Amphetamines Screen NEGATIVE NEGATIVE Urine Methamphetamines Screen NEGATIVE NEGATIVE Urine Benzodiazepines Screen NEGATIVE NEGATIVE Urine Cocaine Screen NEGATIVE NEGATIVE Urine Cannabinoids Screen NEGATIVE NEGATIVE My Orders Orders - TANISHA BARNES DO Continuous Ekg Monitoring (08/28/17 10:13) Ekg Tracing (08/28/17 10:13) Saline Lock/Iv-Start (08/28/17 10:31) Monitor-Rhythm Ecg Trace Only (08/28/17 10:31) Amylase (08/28/17 10:31) BNP (08/28/17 10:31) Cbc With Automated Diff (08/28/17 10:31) Comprehensive Metabolic Panel (08/28/17 10:31) Creatine Kinase (08/28/17 10:31) Creatine Kinase Mb (08/28/17 10:31) Drug Screen Stat (Urine) (08/28/17 10:31) Hcg,Qualitative Serum (08/28/17 10:31) Lipase (08/28/17 10:31) Magnesium (08/28/17 10:31) Protime With Inr (08/28/17 10:31) Partial Thromboplastin Time (08/28/17 10:31) Troponin I (08/28/17 10:31) Ua Culture If Indicated (08/28/17 10:31) Chest 1 View, Ap/Pa Only (08/28/17 10:31) Aspirin Chewable Tablet (Baby Aspirin Ch (08/28/17 10:45) Ketorolac Injection (Toradol Injection) (08/28/17 10:45) Ct Chasity Chest/Noang Abd-Pelv W (08/28/17 11:11) Iohexol Injection (Omnipaque 350 Mg/Ml 1 (08/28/17 11:30) Di Iv Start (Assessment) .on IV start (08/28/17 11:16) Sodium Chloride Flush (Catheter Flush Sy (08/28/17 11:30) Ns (Ivpb) (Sodium Chloride 0.9%) (08/28/17 11:30) Urine Culture (08/28/17 11:45) Medications Given in ED Current Medications Medications Dose Ordered Sig/Sita Route Start Time Stop Time Status Last Admin Dose Admin Aspirin 324 mg ONCE ONCE PO 08/28/17 10:45 08/28/17 10:46 DC 08/28/17 12:12 324 MG Ketorolac Tromethamine 30 mg ONCE ONCE IVP 08/28/17 10:45 08/28/17 10:46 DC 08/28/17 12:12 30 MG Vital Signs/I&O Vital Sign - Last 12Hours 08/28/17 10:20 Temp 98.4 Pulse 84 B/P (MAP) 148/105 (119) O2 Delivery Room Air Capillary Refill : Less Than 3 Seconds Blood Pressure Mean: 119 Departure Impression Impression: Primary Impression: Abdominal fluid collection Disposition: HOME, SELF-CARE Condition: Stable Departure-Patient Inst. Referrals: [facility] (PCP/Family) Primary Care Physician Patient Instructions: NO INSTRUCTIONS GIVEN Add. Discharge Instructions: ARRIVE Thursday08/31/17 AT 12:00 AT DAY SURGERY PROCEDURE AT 1:00-1:30 AND WILL STAY 1-2 HOURS POST PROCEDURE STOP ANY BLOOD THINNERS UNTIL AFTER PROCEDURE CONTINUE TRAMADOL FOR PAIN FOLLOW UP WITH [facility] NEXT WEEK FOR TEST RESULTS All discharge instructions reviewed with patient and/or family. Voiced understanding. TANISHA BARNES DO Aug 28, 2017 14:21
[2017-08-28 14:28] VITALS: BP 148/105
== END 2017-08-28 14:38 | disposition home or self-care (01) ==
LOC: EDUNIT# 10:07 → ER 10:10
DX: R18.8 Other ascites (principal); J45.909 Unspecified asthma, uncomplicated; I10 Essential (primary) hypertension; K21.9 Gastro-esophageal reflux disease without esophagitis; F32.9 Major depressive disorder, single episode, unspecified; Z79.52 Long term (current) use of systemic steroids; Z87.59 Personal history of other complications of pregnancy, childbirth and the puerperium
CPT/HCPCS: 36415; 71045; 71275; 74177; 80053; 80306; 81000; 82150; 82550; 82553; 83690; 83735; 83880; 84484; 84703; 85025; 85610; 85730; 87088; 93005; 93041; 96374

== ENCOUNTER 2017-08-31 11:54 | Day surgery (SDC) | payer SELFPAY ==
[2017-08-31] VITALS (7 sets, daily range): BP systolic 117–144; BP diastolic 73–87
[2017-08-31] MEDS ORDERED: LIDOCAINE 1% INJ 50 ML (XYLOCAINE) VIAL ONE (12:22)
[2017-08-31] MEDS ORDERED: LIDOCAINE 1% INJ 20 ML (XYLOCAINE) VIAL INJ ONE (12:30)
[2017-08-31] MEDS ORDERED: OMEP20CA12 PO (12:43)
[2017-08-31 12:48] LABS: HEMOGLOBIN 11.8 G/DL (11.5-16.0); RED BLOOD COUNT 4.24 10^6/uL (4.35-5.85); RED CELL DISTRIBUTION WIDTH 12.7 % (10.0-14.5); WHITE BLOOD COUNT 11.8 10^3/uL (4.3-11.0)
[2017-08-31 13:26] LABS: INR 1.1 (0.8-1.4); PROTHROMBIN TIME PATIENT 13.8 SEC (12.2-14.7)
[2017-08-31] MEDS ORDERED: CATHETER FLUSH 10 ML SYR IV ONE (14:45)
--- NOTE | 2017-08-31 16:21 | Diagnostic Imaging Report ---
INDICATION: Right flank fluid collection noted on recent CT. Patient presents for CT-guided aspiration. COMPARISON: Correlation is made with recent CT from 08/28/2017. FINDINGS: After informed written consent was obtained from the patient, patient was brought to the CT suite and placed on the table in the left side down decubitus position. Axial imaging through the abdomen was performed to evaluate appropriate entry site. Skin of the right flank was prepped and draped in usual sterile fashion. A small amount of 1% lidocaine was utilized for local anesthesia. A [employer] catheter was advanced into the fluid collection noted in the right flank just inferior to the right lobe of the liver. Approximately 20 cc of purulent fluid was removed. The catheter was removed and hemostasis was obtained. Followup imaging demonstrates near complete resolution of previously noted fluid collection. There is some residual phlegmonous tissue at this location. The patient tolerated the procedure well and left the department in stable condition. IMPRESSION: Successful CT-guided aspiration of the right flank fluid collection, obtaining 20 cc of purulent fluid. The fluid will be sent to lab for culture. Dictated by: Dictated on workstation # [id number]
== END 2017-08-31 15:35 | disposition home or self-care (01) ==
LOC: RAD 11:54 → SURG 14:34 → RAD 15:35
PROVIDERS: ATTEND Emergency Medicine
DX: R18.8 Other ascites (principal)
CPT/HCPCS: 36415; 77012; 85027; 85610; 85730; 87070; 87075; 87077; 87186; 87205

== ENCOUNTER → 2017-09-11 | Outpatient (CLI) | payer SELFPAY ==
[~2017-09-11] MED LIST changes: +OMEP20CA12 PO
--- NOTE | 2017-09-11 15:36 | Diagnostic Imaging Report ---
PROCEDURE: US abdomen complete. TECHNIQUE: Multiple real-time grayscale images were obtained over the abdomen in various projections. INDICATION: Right upper quadrant abdominal pain. FINDINGS: There is no evidence of focal hepatic abnormality or biliary ductal dilatation. The gallbladder is not seen and is reportedly surgically absent. Spleen has a normal appearance; however, the pancreas is largely obscured by overlying bowel. Kidneys have a normal appearance bilaterally without hydronephrosis. There is no ascites. No inferior vena caval or abdominal aortic abnormality is documented. IMPRESSION: Unremarkable abdominal ultrasound post cholecystectomy. Dictated by: Dictated on workstation # [id number]
== END ==
LOC: RAD 14:23
PROVIDERS: ATTEND Nurse Practitioner Family
DX: R10.11 Right upper quadrant pain (principal); Z90.49 Acquired absence of other specified parts of digestive tract
CPT/HCPCS: 76700

== ENCOUNTER 2017-10-06 22:35 | Emergency (ER) | payer SELFPAY ==
[~2017-10-06] VITALS: Ht 162.6 cm; Wt 113.4 kg
--- OUTSIDE RECORDS SUMMARY | 2017-10-06 22:41 | XMS REPORT ---
Author Author FOZIA BLAKE Organization [facility] Address [address] [place] [address] Care Team Providers Care Lot Attendant Name Role Phone FOZIA BLAKE Unavailable PROBLEMS Type Condition ICD9-CM Code ETN57-WH Code Onset Dates Condition Status SNOMED Code Problem Gastroesophageal reflux disease with esophagitis K21.0 Active 805724342 Problem Essential hypertension I10 Active 63062992 Problem Abnormal EKG R94.31 Active 126789595 Problem Right upper quadrant abdominal pain R10.11 Active 551784049 Problem Edema, unspecified type R60.9 Active 601404807 Problem Mild persistent asthma without complication J45.30 Active 691185255 Problem Esophageal abnormality K22.9 Active 17587949 Problem Hammer toe of right foot M20.41 Active 304717095 ALLERGIES Substance Reaction Event Type Date Status Naprosyn itching Drug Allergy Aug, Active Micardis Unknown Drug Allergy Aug, Active Hydrocodone Bitartrate itching Drug Allergy Aug, Active Celebrex swelling Drug Allergy Aug, Active Doxycycline scalp rash Drug Allergy Aug, Active ENCOUNTERS Encounter Location Date Diagnosis [facility] [address], [place] [address] Sep, [facility] [id number] [place] [address] 86792- 9840 Aug, Abscess L02.91 and BMI 40.0-44.9, adult Z68.41 [facility] [id number] [place] [address] 90728- 4155 Aug, Edema, unspecified type R60.9 [facility] [address], [place] [address] Aug, Right upper quadrant abdominal pain R10.11 ; Abnormal EKG R94.31 ; Esophageal abnormality K22.9 and BMI 40.0-44.9, adult Z68.41 [place] [id number] [place] [address] 33150- 3194 Aug, Hammer toe of right foot M20.41 and Onychomycosis B35.1 [facility] [id number] [place] [address] 69351 -8609 Aug, Myalgia M79.1 [facility] [address] [address]- [address] Aug, [place] [address] 91633- 4587 Aug, Annual physical exam Z00.00 ; BMI 40.0-44.9, adult Z68.41 ; Mild persistent asthma without complication J45.30 ; Gastroesophageal reflux disease with esophagitis K21.0 ; Acute right-sided thoracic back pain M54.6 ; Trouble breathing R06.89 and Neck pain M54.2 [place] [address] [address]41- 3062 Jul, Mild persistent asthma without complication J45.30 [place] [address] 48828- 1936 27 Jul, 2017 Edema, unspecified type R60.9 [place] [id number] [place] [address] 60154- 8642 Jun, Edema, unspecified type R60.9 [place] [id number] [place] [address] 21709- 1844 Jun, Moderate persistent asthma with exacerbation J45.41 [place] [address] 91176- 1222 May, Edema, unspecified type R60.9 [place] [id number] [place] [address] 01639- 8349 May, Moderate persistent asthma with exacerbation J45.41 and Hammer toe of right foot M20.41 [place] [id number] [place] [address] 68197- 7123 May, Moderate persistent asthma without complication J45.40 ; Dysfunction of left eustachian tube H69.82 and BMI 45.0-49.9, adult Z68.42 [place] [id number] [place] [address] 83512- 5760 Apr, Edema, unspecified type R60.9 [place] [id number] [place] [address] 81774- 4809 Mar, Edema, unspecified type R60.9 [place] [address] 52346- 9355 Feb, Edema, unspecified type R60.9 [place] [address] 26586- 1665 Jan, Edema, unspecified type R60.9 [place] [id number] [place] [address] 43155- 8638 Jan, Mild persistent asthma without complication J45.30 [place] [address] 38545- 5802 Dec, Edema, unspecified type R60.9 [place] [id number] [place] [address] 61257- 4092 Nov, Edema, unspecified type R60.9 and Essential hypertension I10 [place] [id number] [place] [address] 68523- 5910 October, Pain in left knee M25.562 [place] [address] 90987- 3824 October, Pain in left knee M25.562 [place] [id number] [place] [address] 79691- 2291 October, [place] [address] 13132- 0781 Sep, [facility] [id number] [place] [address] 08790- 7246 Sep, Mild persistent asthma without complication J45.30 [facility] [id number] [place] [address] 41728- 7185 Sep, Pain in left knee M25.562 [facility] [id number] [place] [address] 36737- 4304 Aug, Acute nasopharyngitis J00 and Seasonal allergic rhinitis due to pollen J30.1 [facility] [id number] [place] [address] 66371- 8390 16 Aug, 2016 [facility] [id number] [place] [address] 23298- 2802 Aug, Arthralgia, unspecified joint M25.50 and Pain in left knee M25.562 [facility] [id number] [place] [address] 34714- 0017 Aug, Mild persistent asthma without complication J45.30 [facility] [id number] [place] [address] 39968- 4354 Jul, Mild persistent asthma without complication J45.30 [facility] [id number] [place] [address] 17948- 9099 Jul, Pain in left knee M25.562 [facility] [id number] [place] [address] 80838- 5745 Jun, [facility] [id number] [place] [address] 23988 -2343 Jun, [facility] [id number] [place] [address] 57733- 1575 Jun, Mild persistent asthma without complication J45.30 [facility] [id number] [place] [address] 38349- 1405 May, [facility] [address], [place] [address]- 0744 Apr, Restrictive lung disease J98.4 [facility] [id number] [place] [address] 20678- 1846 Apr, [facility] [id number] [place] [address] 49748- 0640 Apr, Mild persistent asthma without complication J45.30 [facility] [id number] [place] [address] 39964 -0694 Mar, Sore throat J02.9 and Post-nasal drainage R09.82 [place] [id number] [place] [address] 03454- 6369 Mar, [facility] [id number] [place] [address] 63246- 1563 Feb, [place] [id number] [place] [address] 84787- 7059 Feb, Mild persistent asthma without complication J45.30 [facility] [address], [place] [address]- 8842 Feb, Arthralgia, unspecified joint M25.50 [facility] [id number] [place] [address] 02691- 5782 Feb, Edema, unspecified type R60.9 ; Arthralgia, unspecified joint M25.50 ; Mild persistent asthma without complication J45.30 ; Essential hypertension I10 ; Gastroesophageal reflux disease without esophagitis K21.9 and Major depressive disorder with single episode, remission status unspecified F32.9 [place] [id number] [place] [address] 07280- 6511 Jan, Edema, unspecified type R60.9 ; Essential hypertension I10 ; Mild persistent asthma without complication J45.30 ; Gastroesophageal reflux disease with esophagitis K21.0 ; Arthralgia, unspecified joint M25.50 and Major depressive disorder with single episode, remission status unspecified F32.9 [place] [id number] [place] [address]- 2947 Jan, [facility] [address] [facility] [id number] [place] [address]- 3375 Dec, [facility] [address] [facility] [id number] [place] [address]- 8120 Dec, [facility] [address] [place] [address]- 1900 Dec, [facility] [address] [facility] [id number] [place] [address]- 4765 Nov, Bilateral edema of lower extremity R60.0 [facility] [address] [place] [address]- 8062 Nov, Bilateral edema of lower extremity R60.0 [facility] WALK IN [facility] [address] [place] [address] -3791 Nov, [facility] [address], [place] [address]- 1030 Nov, [facility] [address] [place] [address]- 2471 October, [facility] [address], [place] [address]- 5006 Sep, [facility] [id number] [address]- 3146 Aug, Acute sinusitis J01.90 [facility] [address], [place] [address]- 6628 Aug, [facility] [address] 1711 Aug, [facility] [address], [place] [address]- 4030 Jul, [facility] [id number] [address]- 1767 19 Feb, 2016 Pharyngitis J02.9 [facility] [id number] [place] [address] 38252- 2520 Jul, [facility] [id number] [place] [address] 82740- 7969 Jun, Pain in left knee M25.562 [facility] [id number] [place] [address] 36151- 3166 Jun, [facility] [id number] [place] [address] 73636 -7050 May, Upper respiratory symptom R09.89 [facility] [id number] [place] [address] 76142- 7006 May, [facility] [id number] [place] [address] 11953- 0761 Apr, Costochondritis M94.0 and Knee pain, left M25.562 [facility] [id number] [place] [address] 66296- 6499 Apr, [facility] [id number] [place] [address] 35868- 6476 Mar, Eustachian tube dysfunction, left H69.82 [facility] [id number] [place] [address] 05055- 3678 Mar, [facility] [id number] [place] [address] 01212- 1217 Mar, [facility] [id number] [place] [address] 52597- 6216 Mar, [facility] [id number] [place] [address] 54005- 6640 Feb, [facility] [id number] [place] [address] 68837- 7141 Feb, [facility] [id number] [place] [address] 61332- 2235 Feb, [facility] [address], [place] [address]- 4756 Jan, Asthma 493.90 [facility] [address], [place] [address]- 9556 Dec, [facility] [address], [place] [address]- 9909 Dec, [facility] [address], [place] [address]- 6377 Dec, [facility] [address]- 6762 Dec, [facility] [address], [place] [address]- 8268 Dec, Asthma, unspecified, unspecified status 493.90 [facility] [address], [place] [address]- 8306 Nov, [facility] [address], [place] [address]- 0707 Nov, Asthma, unspecified, unspecified status 493.90 [facility] [address], [place] [address]- 1266 October, Asthma, unspecified, unspecified status 493.90 [facility] [address], [place] [address]- 4536 October, [facility] [address], [place] [address]- 8696 October, Contact dermatitis 692.9 and Candidiasis of skin 112.3 [facility] [address], [place] [address]- 0134 Sep, [facility] [address], [place] [address]- 8596 Sep, [facility] [id number] [address]- 2441 Aug, [facility] [place] [facility] [address] [id number] [place] [address]- 1229 Aug, [facility] [place] [facility] [address] [id number] [place] [address]- 5195 Aug, [facility] [place] [facility] [address] [id number] [place] [address]- 3090 Aug, [facility] [place] [facility] [address] [id number] [place] [address]- 5420 Jul, [facility] [place] [facility] [address] [id number] [place] [address]- 8128 Jul, [facility] [place] [facility] [address] [id number] [place] [address]- 6318 Jun, [facility] [place] [facility] [address] [id number] [place] [address]- 4126 Jun, [facility] [place] [facility] [address] [id number] [place] [address]- 1617 May, [facility] [place] [facility] [address] [id number] [place] [address]- 0113 May, [facility] [place] [facility] [address] [id number] [place] [address]- 3885 May, [facility] [place] [facility] [address] [id number] [place] [address]- 2647 May, [facility] [place] [facility] [address] [id number] [place] [address]- 6714 May, [facility] [place] [facility] [address] [id number] [place] [address]- 4652 May, [facility] [place] [facility] [address] [id number] [place] [address]- 9615 Apr, [facility] [place] [facility] [address] [id number] [place] 4787 Apr, [facility] [place] [facility] [address] [id number] [place] [address]- 9017 15 Feb, 2014 [facility] [place] [facility] [address] [id number] [place] [address]- 8936 15 Feb, 2014 [facility] [place] [facility] [address] [id number] [place] [address]- 5462 Feb, [facility] [place] [facility] [address] [id number] [place] [address]- 9356 Feb, [facility] [place] [facility] [address] [id number] [place] [address]- 0439 05 Feb, 2014 [facility] [place] [facility] [address] [id number] [place] [address]- 5862 05 Feb, 2014 [facility] [place] [facility] [address] [id number] [place] [address]- 9561 Jan, [facility] [place] [facility] [address] [id number] [place] [address]- 8555 Jan, [facility] [place] [facility] [address] [id number] [place] [address]- 9915 Jan, [facility] [place] [facility] [address] [id number] [place] [address]- 5945 Jan, [facility] [place] [facility] [address] [id number] [place] [address]- 4202 Jan, [facility] [place] [facility] [address] [id number] [place] [address]- 9821 Jan, [facility] [place] [facility] [address] [id number] [place] [address]- 8100 Dec, [facility] [place] [facility] [address] [id number] [place] [address]- 3703 Dec, [facility] [place] [facility] [address] [id number] [place] [address]- 8799 Nov, [facility] [place] [facility] [address] [id number] [place] [address]- 3215 Nov, [facility] [place] [facility] [address] [id number] [place] [address]- 5093 Nov, [facility] [place] [facility] [address] [id number] [place] [address]- 4653 Nov, [facility] [place] [facility] [address] [id number] [place] [address]- 5582 Nov, [facility] [place] [facility] [address] [id number] [place] [address]- 0006 Nov, [facility] [place] [facility] [address] [id number] [place] [address]- 3211 Nov, [facility] [place] [facility] [address] [id number] [place] [address]- 8578 Nov, [facility] [place] [facility] [address] [id number] [place] [address]- 5141 Nov, [facility] [place] [facility] [address] [id number] [place] [address]- 2762 Nov, [facility] [place] [facility] [address] [id number] [place] [address]- 1951 Nov, [facility] [place] [facility] [address] [id number] [place] [address]- 6079 Nov, [facility] [place] [facility] [address] [id number] [place] [address]- 1746 Nov, [facility] [place] [facility] [address] [id number] [place] [address]- 1223 October, [facility] [place] [facility] [address] [id number] [place] [address]- 5489 October, [facility] [place] [facility] [address] [id number] [place] [address]- 0170 October, [facility] [place] [facility] [address] [id number] [place] 4582 October, [facility] [place] [facility] [address] [id number] [place] [address]- 0905 Sep, [facility] [place] [facility] [address] [id number] [place] [address]- 7586 Sep, [facility] [place] [facility] [address] [id number] [place] [address]- 5485 Sep, [facility] [place] [facility] [address] [id number] [place] [address]- 4099 Sep, [facility] [place] [facility] [address] [id number] [place] [address]- 8167 Aug, [facility] [place] [facility] [address] [id number] [place] [address]- 7361 Aug, [facility] [place] [facility] [address] [id number] [place] [address]- 2456 Jul, [facility] [place] [facility] [address] [id number] [place] [address]- 5842 Jul, [facility] [place] [facility] [address] [id number] [place] [address]- 9497 Jun, [facility] [place] [facility] [address] [id number] [place] [address]- 9453 Jun, [facility] [place] [facility] [address] [id number] [place] [address]- 4317 Mar, [facility] [place] [facility] [address] [id number], [place] [address]- 3443 Mar, [facility] [place] [facility] [address] [id number], [place] [address]- 9463 Mar, [facility] [place] [facility] [address] [id number] [place] [address]- 2569 Mar, [facility] [place] [facility] [address] [id number], [place] [address]- 5081 Mar, [facility] [place] [facility] [address] [id number] [place] [address]- 1006 Feb, [facility] [place] [facility] [address] [id number] [place] [address]- 1876 Feb, [facility] [address] [id number] [place] [address]- 1545 Dec, [facility] [address] [id number] [place] [address]- 5375 Nov, [facility] [address] [id number] [place] [address]- 2956 October, [facility] [address] [id number] [place] [address]- 0309 Sep, [facility] [address] [id number] [place] [address]- 6475 Sep, [facility] [address] [id number] [place] [address]- 3193 Aug, [facility] [address] [id number] [place] [address]- 0693 Aug, [facility] [address] [id number] [place] [address]- 2833 Aug, [facility] [address] [id number] [place] [address]- 0563 Aug, [facility] [address] [id number] [place] [address]- 3341 Jun, [facility] [address] [id number] [place] [address]- 4782 Jun, [facility] [address] [id number] [place] [address] 2549 Jun, [facility] [place] [facility] [address] [id number] [place] [address] May, [facility] [place] [facility] [address] [id number] [place] [address] May, [facility] [address] [id number] [place] [address] Apr, [facility] [place] [facility] [address] [id number] [place] [address] Apr, [facility] [place] [facility] [address] [id number] [place] [address] Apr, [facility] [place] [facility] [address] [id number] [place] [address] Apr, [facility] [place] [facility] [address] [id number] [place] [address], [place] [address] Apr, [facility] [place] [facility] [address] [id number] [place] [address] Apr, [facility] [place] [facility] [address] [id number] [place] [address], [place] [address]- [address] Apr, [facility] [place] [facility] [address] [id number] [place] [address]- [address] Mar, [facility] [place] [facility] [address] [id number] [place] [address], [place] [address] 31 Mar, 2012 [facility] [place] [facility] [address] [id number] [place] [address] 18 Feb, 2012 [facility] [place] [facility] [address] [id number] [place] [address] 17 Feb, 2012 [facility] [place] [facility] [address] [id number] [place] [address]- [address] 13 Feb, 2012 [facility] [place] [facility] [address] [id number] [place] [address]- [address] 15 Jan, 2012 [facility] [place] [facility] [address] [id number] [place] [address]- [address] 14 Jan, 2012 [facility] [place] [facility] [address] [id number] [place] [address]- [address] Jan, [facility] [place] [facility] [address] [id number] [place] [address]- [address] Jan, [facility] [place] [facility] [address] [id number] [place] [address]- [address] 26 Dec, 2011 [facility] [place] [facility] [address] [id number] [place] [address]- [address] 20 Dec, 2011 [facility] [place] [facility] [address] [id number] [place] [address]- [address] 18 Dec, 2011 [facility] [place] [facility] [address] [id number] [place] [address]- [address] 17 Dec, 2011 [facility] [place] [facility] [address] [id number] [place] [address]- [address] 10 Dec, 2011 [facility] [place] [facility] [address] [id number] [place] [address] Nov, [facility] [place] [facility] [address] [id number] [place] [address] Nov, [facility] [place] [facility] [address] [id number] [place] [address]- [address] Nov, [facility] [place] [facility] [address] [id number] [place] [address] Nov, [facility] [place] [facility] [address] [id number] [place] [address] October, [facility] [place] [facility] [address] [id number] [place] [address] October, [facility] [place] [facility] [address] [id number] [place] [address] October, [facility] [place] [facility] [address] [id number] [place] [address]- [address] October, [facility] [place] [facility] [address] [id number] [place] [address]- [address] October, [facility] [place] [facility] [address] [id number] [place] [address]- [address] Sep, [facility] [place] [facility] [address] [id number] [place] [address] Sep, [facility] [place] [facility] [address] [id number] [place] [address]- [address] 12 Sep, 2011 [facility] [address] [id number] [place] [address] 11 Sep, 2011 [facility] [address] [id number] [place] [address]- [address] 03 Sep, 2011 [facility] [address] [id number] [place] [address] 29 Aug, 2011 [facility] [address] [id number] [place] [address] 28 Aug, 2011 [facility] [address] [id number] [place] [address] 27 Aug, 2011 [facility] [address] [id number] [place] [address] 26 Aug, 2011 [facility] [address] [id number] [place] [address] 23 Aug, 2011 [facility] [address] [id number] [place] [address] 20 Aug, 2011 [facility] [address] [id number] [place] [address] 19 Aug, 2011 [facility] [address] [id number] [place] [address] 17 Aug, 2011 [facility] [address] [id number] [place] [address] 18 Jun, 2011 [facility] [address] [id number] [place] [address] 12 Jun, 2011 [facility] [place] [facility] [address] [id number] [place] [address] 11 Jun, 2011 [facility] [address] [id number] [place] [address] 10 Jun, 2011 [facility] [address] [id number] [place] [address] Jun, [facility] [id number] [address] May, [facility] [id number] [address] Apr, [facility] [id number], [place] [address] October, [facility] [id number] [address] May, [facility] [address] [facility] [id number], [place] [address] May, [facility] [id number] [address] Apr, [facility] [id number], [place] [address] Jan, [facility] [id number], [place] [address] Dec, [facility] [id number], [place] [address] Sep, [facility] [id number], [place] [address] Sep, [facility] [id number] [address] Jul, [facility] [id number], [place] [address] May, [facility] [id number], [place] [address] Jan, IMMUNIZATIONS No Known Immunizations SOCIAL HISTORY Never Assessed REASON FOR VISIT Ear/Throat pain--DBennettRN, trouble swallowing since starting spiriva inhaler approx 2 months ago, has stopped spiriva PLAN OF CARE Activity Details Follow Up prn with PCP Reason: VITAL SIGNS Height 64 in 2016-08-28 Weight 268 lbs 2016-08-28 Heart Rate 80 bpm 2016-08-28 Respiratory Rate 20 2016-08-28 BMI 46.00 kg/m2 2016-08-28 Blood pressure systolic 132 mmHg 2016-08-28 Blood pressure diastolic 80 mmHg 2016-08-28 MEDICATIONS Medication Instructions Dosage Frequency Start Date End Date Duration Status Stephan HFA 108 (90 Base) MCG/ACT Inhalation every 4 hrs 2 puffs as needed 4h Feb, Active Omeprazole 20 mg 1 capsule 24h Active Paxil 40 MG Orally Once a day 1 tablet in the morning 24h Active Albuterol Sulfate 2.5 mg /3 mL (0.083 %) inhale 3 milliliters (2.5 mg) by nebulization route 4 times per day PRN for wheezing or cough Aug, Active Ibuprofen 800 MG Orally Three times a day 1 tablet 8h Active Wellbutrin XL 150 MG Orally Once a day 1 tablet in the morning 24h Active Hydrochlorothiazide 50 mg Orally Once a day 1 tablet 24h 30 Active Cyclobenzaprine HCl 5 MG TAKE ONE TABLET BY MOUTH TWICE DAILY 30 Active Advair Diskus 250-50 MCG/DOSE Inhalation Twice a day 1 puff 12h Nov, Active Losartan Potassium 25 MG 1 tablet 24h 30 Active Tramadol HCl 50 mg Orally 2 times a day as needed TAKE ONE TABLET BY MOUTH THREE TIMES DAILY PRN Active RESULTS Name Result Date Reference Range STREP A (IN HOUSE) 2016-08-28 STREP A negative Control + Lot # [id number] Exp date 12/05/17 PROCEDURES Procedure Date Ordered Result Body Site STREP A ASSAY W/OPTIC August 28, 2016 INSTRUCTIONS MEDICATIONS ADMINISTERED No Known Medications MEDICAL (GENERAL) HISTORY Type Description Date Medical History hypertension Medical History asthma Medical History depression Medical History mood disorder Medical History hx of alcohol abuse Surgical History section 1989 Surgical History Cholecystectomy 2013 Surgical History echocardiagram 01/2016 Hospitalization History , surgeries 1989
--- OUTSIDE RECORDS SUMMARY | 2017-10-06 22:42 | XMS REPORT ---
Author Author JENNIFER CANCINO Organization [facility] Address [address] [place] [address] Care Team Providers Care Principal Developer Name Role Phone JENNIFER CANCINO Unavailable PROBLEMS Type Condition ICD9-CM Code AWV09-DS Code Onset Dates Condition Status SNOMED Code Problem Gastroesophageal reflux disease with esophagitis K21.0 Active 469318472 Problem Essential hypertension I10 Active 31150825 Problem Abnormal EKG R94.31 Active 722066023 Problem Right upper quadrant abdominal pain R10.11 Active 182085968 Problem Edema, unspecified type R60.9 Active 773683838 Problem Mild persistent asthma without complication J45.30 Active 677092486 Problem Esophageal abnormality K22.9 Active 66297923 Problem Hammer toe of right foot M20.41 Active 470089099 ALLERGIES No Information ENCOUNTERS Encounter Location Date Diagnosis [place] [id number] [place] [address] 73142- 3123 Sep, [place] [id number] [place] [address] 59011- 5848 Aug, Abscess L02.91 and BMI 40.0-44.9, adult Z68.41 [place] [id number] [place] [address] 68389- 5738 Aug, Edema, unspecified type R60.9 [facility] [id number] [place] [address] 48613- 7816 Aug, Right upper quadrant abdominal pain R10.11 ; Abnormal EKG R94.31 ; Esophageal abnormality K22.9 and BMI 40.0-44.9, adult Z68.41 [facility] [id number] [place] [address] 88504- 5492 Aug, Hammer toe of right foot M20.41 and Onychomycosis B35.1 [facility] [id number] [place] [address] 13691 -1888 Aug, Myalgia M79.1 [facility] [id number] [place] [address] 92148- 0444 Aug, [place] [id number] [place] [address] 86714- 7818 Aug, Annual physical exam Z00.00 ; BMI 40.0-44.9, adult Z68.41 ; Mild persistent asthma without complication J45.30 ; Gastroesophageal reflux disease with esophagitis K21.0 ; Acute right-sided thoracic back pain M54.6 ; Trouble breathing R06.89 and Neck pain M54.2 [place] [id number] [place] [address] 71565- 3964 28 Jul, 2017 Mild persistent asthma without complication J45.30 [place] [address] 81441- 5140 Jul, Edema, unspecified type R60.9 [place] [id number] [place] [address] 29054- 1778 Jun, Edema, unspecified type R60.9 [place] [id number] [place] [address] 63093- 2956 Jun, Moderate persistent asthma with exacerbation J45.41 [place] [id number] [place] [address] 63547- 5183 May, Edema, unspecified type R60.9 [place] [id number] [place] [address] 22197- 1605 May, Moderate persistent asthma with exacerbation J45.41 and Hammer toe of right foot M20.41 [place] [id number] [place] [address] 40510- 4651 04 May, 2017 Moderate persistent asthma without complication J45.40 ; Dysfunction of left eustachian tube H69.82 and BMI 45.0-49.9, adult Z68.42 [facility] [id number] [place] [address] 62042- 0881 Apr, Edema, unspecified type R60.9 [facility] [id number] [place] [address] 92963- 7799 Mar, Edema, unspecified type R60.9 [place] [id number] [place] [address] 31362- 6222 Feb, Edema, unspecified type R60.9 [place] [id number] [place] [address] 45728- 6120 Jan, Edema, unspecified type R60.9 [place] [id number] [place] [address] 59855- 8280 Jan, Mild persistent asthma without complication J45.30 [place] [id number] [place] [address] 54321- 1377 Dec, Edema, unspecified type R60.9 [place] [id number] [place] [address] 91167- 5797 Nov, Edema, unspecified type R60.9 and Essential hypertension I10 [place] [id number] [place] [address] 39396- 7025 October, Pain in left knee M25.562 [place] [id number] [place] [address] 28239- 0127 October, Pain in left knee M25.562 [place] [id number] [place] [address] 95771- 2017 October, [place] [id number] [place] [address] 44613- 6723 Sep, [place] [id number] [place] [address] 08612- 5708 Sep, Mild persistent asthma without complication J45.30 [facility] [id number] [place] [address] 17287- 8476 Sep, Pain in left knee M25.562 [facility] [address] 39105- 8227 23 Aug, 2016 Acute nasopharyngitis J00 and Seasonal allergic rhinitis due to pollen J30.1 [facility] [id number] [place] [address] 92658- 4535 16 Aug, 2016 [facility] [address] 59371- 3952 Aug, Arthralgia, unspecified joint M25.50 and Pain in left knee M25.562 [place] [address] 60630- 0602 08 Aug, 2016 Mild persistent asthma without complication J45.30 [place] [address] 00493- 6084 Jul, Mild persistent asthma without complication J45.30 [facility] [address] 21784- 0090 Jul, Pain in left knee M25.562 [place] [address] 72814- 0212 Jun, [facility] [id number] [place] [address] 23518 -8310 Jun, [facility] [id number] [place] [address] 46987- 0231 Jun, Mild persistent asthma without complication J45.30 [facility] [id number] [place] [address] 22167- 8155 May, [place] [address] 29452- 5973 Apr, Restrictive lung disease J98.4 [place] [id number] [place] [address] 81336- 9293 Apr, [place] [address] [address]- 0712 Apr, Mild persistent asthma without complication J45.30 [facility] [id number] [place] [address] 70621 -3042 Mar, Sore throat J02.9 and Post-nasal drainage R09.82 [facility] [id number] [place] [address] 18671- 2210 Mar, [facility] [id number] [place] [address] 95773- 4209 Feb, [place] [id number] [place] [address] 81325- 3922 Feb, Mild persistent asthma without complication J45.30 [place] [id number] [place] [address] 68822- 3360 Feb, Arthralgia, unspecified joint M25.50 [place] [id number] [place] [address] 55440- 4259 Feb, Edema, unspecified type R60.9 ; Arthralgia, unspecified joint M25.50 ; Mild persistent asthma without complication J45.30 ; Essential hypertension I10 ; Gastroesophageal reflux disease without esophagitis K21.9 and Major depressive disorder with single episode, remission status unspecified F32.9 [place] [id number] [place] [address] 85502- 6850 Jan, Edema, unspecified type R60.9 ; Essential hypertension I10 ; Mild persistent asthma without complication J45.30 ; Gastroesophageal reflux disease with esophagitis K21.0 ; Arthralgia, unspecified joint M25.50 and Major depressive disorder with single episode, remission status unspecified F32.9 [place] [id number] [place] [address] 74392- 8807 Jan, [facility] [id number] [place] [address] 16835- 2998 Dec, [place] [address] [place] [address]- 7669 15 Dec, 2015 [facility] [address] [place] [address]- 9604 Dec, [facility] [address] [address]- 6839 Nov, Bilateral edema of lower extremity R60.0 [facility] [id number] [place] [address] 37693- 0032 Nov, Bilateral edema of lower extremity R60.0 [facility] [address] [facility] [id number] [address] Nov, [facility] [id number] [place] [address] 15925- 4965 Nov, [facility] [address] [address]- 4507 October, [facility] [address] [address]- 6651 Sep, [facility] [address] [address]- 5842 Aug, Acute sinusitis J01.90 [facility] [address] [address]- 2545 Aug, [facility] [address] [address]- 7492 Aug, [facility] [address] [address]- 3733 Jul, [facility] [address] 0146 Jul, Pharyngitis J02.9 [facility] [address] [address]- 8046 Jul, [facility] [address] [address]- 3401 Jun, Pain in left knee M25.562 [facility] [id number] [place] [address] 49271- 2266 Jun, [facility] [id number] [place] [address] 91652 -2931 May, Upper respiratory symptom R09.89 [facility] [id number] [place] [address] 71937- 3440 May, [facility] [id number] [place] [address] 99337- 2786 Apr, Costochondritis M94.0 and Knee pain, left M25.562 [facility] [id number] [place] [address] 51448- 5793 Apr, [facility] [id number] [place] [address] 29275- 5452 Mar, Eustachian tube dysfunction, left H69.82 [facility] [id number] [place] [address] 81420- 1250 Mar, [facility] [id number] [place] [address] 13315- 1639 Mar, [facility] [id number] [place] [address] 45467- 6986 Mar, [facility] [id number] [place] [address] 86791- 3296 Feb, [facility] [id number] [place] [address] 04814- 2233 Feb, [facility] [id number] [place] [address] 05484- 9267 Feb, [facility] [id number] [place] [address] 69005- 2783 Jan, Asthma 493.90 [facility] [id number] [place] [address] 62395- 9567 Dec, [facility] [id number] [address]- 9491 Dec, [facility] [address], [place] [address]- 1409 Dec, [facility] [address], [place] [address]- 3625 Dec, [facility] [address], [place] [address]- 2669 Dec, Asthma, unspecified, unspecified status 493.90 [facility] [address], [place] [address]- 8936 Nov, [facility] [address], [place] [address]- 9149 Nov, Asthma, unspecified, unspecified status 493.90 [facility] [address], [place] [address]- 4494 October, Asthma, unspecified, unspecified status 493.90 [facility] [address], [place] [address]- 2905 October, [facility] [id number] 8654 October, Contact dermatitis 692.9 and Candidiasis of skin 112.3 [facility] [id number], [place] [address]- 9978 Sep, [facility] [id number], [place] [address]- 4148 Sep, [facility] [id number] [address]- 6902 Aug, [facility] [id number], [place] [address]- 4226 Aug, [facility] [id number] [address]- 0606 Aug, [facility] [place] [facility] [address] [id number] [place] [address]- 4468 Aug, [facility] [place] [facility] [address] [id number] [place] [address]- 8473 Jul, [facility] [place] [facility] [address] [id number] [place] [address]- 8945 Jul, [facility] [place] [facility] [address] [id number] [place] [address]- 8143 Jun, [facility] [place] [facility] [address] [id number] [place] [address]- 4881 Jun, [facility] [place] [facility] [address] [id number] [place] [address]- 0672 May, [facility] [place] [facility] [address] [id number] [place] [address]- 4054 May, [facility] [place] [facility] [address] [id number] [place] [address]- 0533 May, [facility] [place] [facility] [address] [id number] [place] [address]- 6887 May, [facility] [place] [facility] [address] [id number] [place] [address]- 0746 May, [facility] [place] [facility] [address] [id number] [place] [address]- 3686 May, [facility] [place] [facility] [address] [id number] [place] [address]- 9844 Apr, [facility] [place] [facility] [address] [id number] [place] [address]- 7543 Apr, [facility] [place] [facility] [address] [id number] [place] [address]- 3468 Feb, [facility] [place] [facility] [address] [id number] [place] [address]- 7305 15 Feb, 2014 [facility] [place] [facility] [address] [id number] [place] [address]- 1064 Feb, [facility] [place] [facility] [address] [id number] [place] [address]- 3024 Feb, [facility] [place] [facility] [address] [id number] [place] [address]- 4417 Feb, [facility] [place] [facility] [address] [id number] [place] [address]- 9652 Feb, [facility] [place] [facility] [address] [id number] [place] [address]- 2117 Jan, [facility] [place] [facility] [address] [id number] [place] [address]- 2687 Jan, [facility] [place] [facility] [address] [id number] [place] [address]- 5633 Jan, [facility] [place] [facility] [address] [id number] [place] [address]- 1531 Jan, [facility] [place] [facility] [address] [id number] [place] [address]- 5230 Jan, [facility] [place] [facility] [address] [id number] [place] [address]- 2735 Jan, [facility] [place] [facility] [address] [id number] [place] [address]- 4340 Dec, [facility] [place] [facility] [address] [id number] [place] [address]- 0899 Dec, [facility] [place] [facility] [address] [id number] [place] [address]- 4691 Nov, [facility] [place] [facility] [address] [id number] [place] [address]- 2944 Nov, [facility] [place] [facility] [address] [id number] [place] [address]- 6832 Nov, [facility] [place] [facility] [address] [id number] [place] [address]- 3660 Nov, [facility] [place] [facility] [address] [id number] [place] [address]- 0679 Nov, [facility] [place] [facility] [address] [id number] [place] [address]- 2930 Nov, [facility] [place] [facility] [address] [id number] [place] [address]- 2413 Nov, [facility] [place] [facility] [address] [id number] [place] [address]- 3671 Nov, [facility] [place] [facility] [address] [id number] [place] [address]- 4723 Nov, [facility] [place] [facility] [address] [id number] [place] [address]- 0085 Nov, [facility] [place] [facility] [address] [id number] [place] [address]- 1135 Nov, [facility] [place] [facility] [address] [id number] [place] [address]- 5444 Nov, [facility] [place] [facility] [address] [id number] [place] [address]- 2664 Nov, [facility] [place] [facility] [address] [id number] [place] [address]- 2751 October, [facility] [place] [facility] [address] [id number] [place] [address]- 1535 October, [facility] [place] [facility] [address] [id number] [place] [address]- 6787 October, [facility] [place] [facility] [address] [id number] [place] [address]- 2775 October, [facility] [place] [facility] [address] [id number] [place] [address]- 0849 Sep, [facility] [place] [facility] [address] [id number] [place] [address]- 2758 Sep, [facility] [place] [facility] [address] [id number] [place] [address]- 6284 Sep, [facility] [place] [facility] [address] [id number] [place] [address]- 4766 Sep, [facility] [place] [facility] [address] [id number] [place] [address]- 7064 Aug, [facility] [place] [facility] [address] [id number] [place] [address]- 2579 Aug, [facility] [place] [facility] [address] [id number] [place] [address]- 7746 Jul, [facility] [place] [facility] [address] [id number] [place] [address]- 6308 Jul, [facility] [place] [facility] [address] [id number] [place] [address]- 0019 Jun, [facility] [place] [facility] [address] [id number] [place] [address]- 6331 Jun, [facility] [place] [facility] [address] [id number] [place] [address]- 9310 Mar, [facility] [place] [facility] [address] [id number] [place] [address]- 7400 Mar, [facility] [place] [facility] [address] [id number] [place] [address]- 4616 Mar, [facility] [place] [facility] [address] [id number] [place] [address]- 2660 Mar, [facility] [place] [facility] [address] [id number], [place] [address]- 5153 Mar, [facility] [place] [facility] [address] [id number] [place] [address]- 4930 Feb, [facility] [place] [facility] [address] [id number] [place] [address]- 9736 Feb, [facility] [place] [facility] [address] [id number] [place] [address]- 2479 Dec, [facility] [place] [facility] [address] [id number] [place] [address]- 8679 Nov, [facility] [address] [id number] [place] [address]- 1102 October, [facility] [address] [id number] [place] [address]- 5465 Sep, [facility] [address] [id number] [place] [address]- 9366 Sep, [facility] [address] [id number] [place] [address]- 7319 Aug, [facility] [address] [id number] [place] [address]- 9925 Aug, [facility] [address] [id number] [place] [address]- 9822 Aug, [facility] [address] [id number] [place] [address]- 9661 Aug, [facility] [address] [id number] [place] [address]- 7988 Jun, [facility] [address] [id number] [place] [address]- 1487 Jun, [facility] [address] [id number] [place] [address]- 7176 Jun, [facility] [address] [id number] [place] [address]- 9999 May, [facility] [place] [facility] [address] [id number] [place] [address]- 7791 May, [facility] [place] [facility] [address] [id number] [place] [address]- 8467 Apr, [facility] [place] [facility] [address] [id number] [place] [address]- 5981 Apr, [facility] [address] [id number] [place] [address]- 4016 Apr, [facility] [place] [facility] [address] [id number] [place] [address]- 0818 Apr, [facility] [place] [facility] [address] [id number] [place] 8371 Apr, [facility] [place] [facility] [address] [id number] [place] 9647 Apr, [facility] [place] [facility] [address] [id number] [place] [address]- 3255 Apr, [facility] [place] [facility] [address] [id number] [place] [address]- 3937 Mar, [facility] [place] [facility] [address] [id number] [place] [address]- 6946 Mar, [facility] [place] [facility] [address] [id number] [place] [address] 18 Feb, 2012 [facility] [place] [facility] [address] [id number] [place] [address] 17 Feb, 2012 [facility] [place] [facility] [address] [id number] [place] [address] 13 Feb, 2012 [facility] [place] [facility] [address] [id number] [place] [address] 15 Jan, 2012 [facility] [place] [facility] [address] [id number] [place] [address] 14 Jan, 2012 [facility] [place] [facility] [address] [id number] [place] [address] Jan, [facility] [place] [facility] [address] [id number] [place] [address] Jan, [facility] [place] [facility] [address] [id number] [place] [address] Dec, [facility] [place] [facility] [address] [id number] [place] [address] Dec, [facility] [place] [facility] [address] [id number] [place] [address] 18 Dec, 2011 [facility] [place] [facility] [address] [id number] [place] [address] 17 Dec, 2011 [facility] [place] [facility] [address] [id number] [place] [address] 10 Dec, 2011 [facility] [place] [facility] [address] [id number] [place] [address] Nov, [facility] [place] [facility] [address] [id number] [place] [address] 14 Nov, 2011 [facility] [place] [facility] [address] [id number] [place] [address] Nov, [facility] [place] [facility] [address] [id number] [place] [address] Nov, [facility] [place] [facility] [address] [id number] [place] [address] October, [facility] [place] [facility] [address] [id number] [place] [address] October, [facility] [place] [facility] [address] [id number] [place] [address] October, [facility] [place] [facility] [address] [id number] [place] [address] October, [facility] [place] [facility] [address] [id number] [place] [address] October, [facility] [place] [facility] [address] [id number] [place] [address] Sep, [facility] [place] [facility] [address] [id number] [place] [address] Sep, [facility] [place] [facility] [address] [id number] [place] [address] Sep, [facility] [place] [facility] [address] [id number] [place] [address] Sep, [facility] [place] [facility] [address] [id number] [place] [address] 03 Sep, 2011 [facility] [address] [id number] [place] [address] 29 Aug, 2011 [facility] [place] [facility] [address] [id number] [place] [address] 28 Aug, 2011 [facility] [address] [id number] [place] [address] 27 Aug, 2011 [facility] [place] [facility] [address] [id number] [place] [address] 26 Aug, 2011 [facility] [address] [id number] [place] [address] 23 Aug, 2011 [facility] [place] [facility] [address] [id number] [place] [address] 20 Aug, 2011 [facility] [address] [id number] [place] [address] 19 Aug, 2011 [facility] [address] [id number] [place] [address] 17 Aug, 2011 [facility] [place] [facility] [address] [id number] [place] [address] 18 Jun, 2011 [facility] [address] [id number] [place] [address] Jun, [facility] [place] [facility] [address] [id number] [place] [address] Jun, [facility] [place] [facility] [address] [id number] [place] [address] 10 Jun, 2011 [facility] [place] [facility] [address] [id number] [place] [address] 06 Jun, 2011 [facility] [place] [facility] [address] [id number] [place] [id number] 20 May, 2011 [facility] [place] [facility] [address] [id number] [place] [address] Apr, [facility] [address] [facility] [id number] [address] October, [facility] [id number], [place] [address] May, [facility] [address] [facility] [id number] [address] May, [facility] [id number], [place] [address] Apr, [facility] [address] [facility] [id number], [place] [address] Jan, [facility] [id number], [place] [address] Dec, [facility] [id number], [place] [address] Sep, [facility] [id number], [place] [address] Sep, [facility] [id number], [place] [address] Jul, [facility] [id number], [place] [address] May, [facility] [id number], [place] [address] Jan, IMMUNIZATIONS No Known Immunizations SOCIAL HISTORY Never Assessed REASON FOR VISIT Controlled Refill Request PLAN OF CARE VITAL SIGNS MEDICATIONS Medication Instructions Dosage Frequency Start Date End Date Duration Status Tramadol HCl 50 MG Orally 1 tablet 3 times a day as needed 1 tablet 28 days Active RESULTS No Results PROCEDURES No Known procedures INSTRUCTIONS MEDICATIONS ADMINISTERED No Known Medications MEDICAL (GENERAL) HISTORY Type Description Date Medical History hypertension Medical History asthma Medical History depression Medical History mood disorder Medical History hx of alcohol abuse Surgical History section 1989 Surgical History Cholecystectomy 2013 Surgical History echocardiagram 01/2016 Hospitalization History , surgeries 1989
--- OUTSIDE RECORDS SUMMARY | 2017-10-06 22:44 | XMS REPORT ---
Author Author JENNIFER CANCINO Organization [facility] Address [address] [place] [address] Care Team Providers Care Program Management Intern Name Role Phone JENNIFER CANCINO Unavailable PROBLEMS Type Condition ICD9-CM Code CFO26-PV Code Onset Dates Condition Status SNOMED Code Problem Gastroesophageal reflux disease with esophagitis K21.0 Active 100147912 Problem Essential hypertension I10 Active 69773187 Problem Abnormal EKG R94.31 Active 870467339 Problem Right upper quadrant abdominal pain R10.11 Active 546049830 Problem Edema, unspecified type R60.9 Active 833184397 Problem Mild persistent asthma without complication J45.30 Active 506398427 Problem Esophageal abnormality K22.9 Active 80712843 Problem Hammer toe of right foot M20.41 Active 446448851 ALLERGIES No Information ENCOUNTERS Encounter Location Date Diagnosis [place] [id number] [place] [address] 11831- 7194 Sep, [place] [id number] [place] [address] 22880- 0464 Sep, Abscess L02.91 [place] [id number] [place] [address] 87381- 4731 06 Sep, 2017 Right upper quadrant abdominal pain R10.11 ; Mild persistent asthma without complication J45.30 and BMI 40.0-44.9, adult Z68.41 [place] [id number] [place] [address] 35135- 2270 28 Aug, 2017 Abscess L02.91 and BMI 40.0-44.9, adult Z68.41 [place] [id number] [place] [address] 85357- 3426 26 Aug, 2017 Edema, unspecified type R60.9 [place] [address] [place] [address]- 8382 Aug, Right upper quadrant abdominal pain R10.11 ; Abnormal EKG R94.31 ; Esophageal abnormality K22.9 and BMI 40.0-44.9, adult Z68.41 [place] [id number] [place] [address] 46864- 7210 Aug, Hammer toe of right foot M20.41 and Onychomycosis B35.1 [facility] [address] 15792 -6724 Aug, Myalgia M79.1 [place] [address] 38048- 3983 Aug, [place] [address] 11405- 4039 Aug, Annual physical exam Z00.00 ; BMI 40.0-44.9, adult Z68.41 ; Mild persistent asthma without complication J45.30 ; Gastroesophageal reflux disease with esophagitis K21.0 ; Acute right-sided thoracic back pain M54.6 ; Trouble breathing R06.89 and Neck pain M54.2 [place] [address] 79672- 2069 Jul, Mild persistent asthma without complication J45.30 [place] [id number] [place] [address] 59117- 0425 Jul, Edema, unspecified type R60.9 [place] [id number] [place] [address] 83381- 4821 Jun, Edema, unspecified type R60.9 [place] [address] 53922- 8976 Jun, Moderate persistent asthma with exacerbation J45.41 [place] [address] 34499- 3663 May, Edema, unspecified type R60.9 [place] [address] [place] [place] [address]- 1692 08 May, 2017 Moderate persistent asthma with exacerbation J45.41 and Hammer toe of right foot M20.41 [place] [address] 50058- 1974 04 May, 2017 Moderate persistent asthma without complication J45.40 ; Dysfunction of left eustachian tube H69.82 and BMI 45.0-49.9, adult Z68.42 [place] [address] 39639- 6608 Apr, Edema, unspecified type R60.9 [place] [address] 07394- 3210 Mar, Edema, unspecified type R60.9 [place] [address] 67398- 2244 Feb, Edema, unspecified type R60.9 [place] [address] 72944- 1354 Jan, Edema, unspecified type R60.9 [place] [address] 74092- 5422 Jan, Mild persistent asthma without complication J45.30 [place] [id number] [place] [address] 78007- 5102 Dec, Edema, unspecified type R60.9 [place] [id number] [place] [address] 75452- 5117 Nov, Edema, unspecified type R60.9 and Essential hypertension I10 [place] [address] 14909- 3783 October, Pain in left knee M25.562 [place] [id number] [place] [address] 95394- 2229 October, Pain in left knee M25.562 [place] [address] 59155- 7781 October, [facility] [id number] [place] [address] 53719- 5478 Sep, [facility] [id number] [place] [address] 94961- 3216 Sep, Mild persistent asthma without complication J45.30 [facility] [id number] [place] [address] 44163- 1198 Sep, Pain in left knee M25.562 [facility] [id number] [place] [address] 04479- 3441 Aug, Acute nasopharyngitis J00 and Seasonal allergic rhinitis due to pollen J30.1 [place] [id number] [place] [address] 55938- 8455 16 Aug, 2016 [facility] [id number] [place] [address] 42022- 3888 Aug, Arthralgia, unspecified joint M25.50 and Pain in left knee M25.562 [facility] [id number] [place] [address] 19671- 0966 Aug, Mild persistent asthma without complication J45.30 [facility] [id number] [place] [address] 20005- 4380 Jul, Mild persistent asthma without complication J45.30 [facility] [id number] [place] [address] 95616- 0332 Jul, Pain in left knee M25.562 [facility] [id number] [place] [address] 86554- 3816 Jun, [facility] [id number] [place] [address] 31844 -9127 Jun, [facility] [id number] [place] [address] 22694- 7431 Jun, Mild persistent asthma without complication J45.30 [facility] [address] [address]- 1705 May, [place] [id number] [place] [address] 63001- 1024 Apr, Restrictive lung disease J98.4 [facility] [id number] [place] [address] 20228- 4551 Apr, [facility] [id number] [place] [address] 36041- 3570 Apr, Mild persistent asthma without complication J45.30 [facility] [id number] [place] [address] 46820 -4948 Mar, Sore throat J02.9 and Post-nasal drainage R09.82 [place] [id number] [place] [address] 09271- 2372 Mar, [place] [id number] [place] [address] 77203- 4880 Feb, [place] [id number] [place] [address] 92480- 3323 Feb, Mild persistent asthma without complication J45.30 [place] [id number] [place] [address] 56702- 4649 Feb, Arthralgia, unspecified joint M25.50 [place] [id number] [place] [address] 08089- 7045 Feb, Edema, unspecified type R60.9 ; Arthralgia, unspecified joint M25.50 ; Mild persistent asthma without complication J45.30 ; Essential hypertension I10 ; Gastroesophageal reflux disease without esophagitis K21.9 and Major depressive disorder with single episode, remission status unspecified F32.9 [facility] [address] [place] [address] 95595- 0646 Jan, Edema, unspecified type R60.9 ; Essential hypertension I10 ; Mild persistent asthma without complication J45.30 ; Gastroesophageal reflux disease with esophagitis K21.0 ; Arthralgia, unspecified joint M25.50 and Major depressive disorder with single episode, remission status unspecified F32.9 [facility] [address], [place] [address]- 2318 Jan, [facility] [address], [place] [address]- 7438 Dec, [facility] [id number] [place] [address] 95145- 8988 Dec, [facility] [address], [place] [address]- 2886 Dec, [facility] [id number] [place] [address] 39062- 0828 Nov, Bilateral edema of lower extremity R60.0 [facility] [address], [place] [address]- 1160 Nov, Bilateral edema of lower extremity R60.0 [facility] [address] [address] -3174 Nov, [facility] [address] [place] [address]- 5982 Nov, [facility] [address], [place] [address]- 3291 October, [facility] [address], [place] [address]- 5293 Sep, [facility] [address] [place] [address]- 1928 Aug, Acute sinusitis J01.90 [facility] [address], [place] [address]- 5091 Aug, [facility] [address] 6891 Aug, [facility] [address], [place] [address]- 3578 Jul, [facility] [address] [place] [address] 73889- 7928 Jul, Pharyngitis J02.9 [facility] [id number] [place] [address] 26615- 4596 Jul, [facility] [id number] [place] [address] 26001- 0980 Jun, Pain in left knee M25.562 [facility] [id number] [place] [address] 53227- 9785 Jun, [facility] [id number] [place] [address] 22907 -5964 May, Upper respiratory symptom R09.89 [facility] [id number] [place] [address] 82783- 2436 May, [facility] [id number] [place] [address] 94753- 3856 Apr, Costochondritis M94.0 and Knee pain, left M25.562 [facility] [id number] [place] [address] 49730- 9759 Apr, [facility] [id number] [place] [address] 03194- 9667 Mar, Eustachian tube dysfunction, left H69.82 [facility] [id number] [place] [address] 24782- 2475 Mar, [facility] [id number] [place] [address] 76302- 3289 Mar, [facility] [id number] [place] [address] 76574- 7067 Mar, [facility] [id number] [place] [address] 15604- 4437 Feb, [facility] [id number] [place] [address] 02878- 2085 Feb, [facility] [address], [place] [address]- 1958 Feb, [facility] [address], [place] [address]- 8748 Jan, Asthma 493.90 [facility] [address], [place] [address]- 0500 Dec, [facility] [address], [place] [address]- 0565 Dec, [facility] [address] 9688 Dec, [facility] [address] 5052 Dec, [facility] [address], [place] [address]- 4450 Dec, Asthma, unspecified, unspecified status 493.90 [facility] [address], [place] [address]- 5329 Nov, [facility] [address] 3204 Nov, Asthma, unspecified, unspecified status 493.90 [facility] [address]- 8433 October, Asthma, unspecified, unspecified status 493.90 [facility] [address], [place] [address]- 8778 October, [facility] [id number] [address]- 4619 October, Contact dermatitis 692.9 and Candidiasis of skin 112.3 [facility] [id number] 4261 Sep, [facility] [id number]- 3176 Sep, [facility] [place] [facility] [address] [id number] [place] [address]- 2213 Aug, [facility] [place] [facility] [address] [id number] [place] [address]- 6427 Aug, [facility] [place] [facility] [address] [id number] [place] [address]- 0342 Aug, [facility] [place] [facility] [address] [id number] [place] [address]- 0403 Aug, [facility] [place] [facility] [address] [id number] [place] [address]- 5842 Jul, [facility] [place] [facility] [address] [id number] [place] [address]- 5900 Jul, [facility] [place] [facility] [address] [id number] [place] [address]- 0357 Jun, [facility] [place] [facility] [address] [id number] [place] [address]- 8278 Jun, [facility] [place] [facility] [address] [id number] [place] [address]- 7961 May, [facility] [place] [facility] [address] [id number] [place] [address]- 4905 May, [facility] [place] [facility] [address] [id number] [place] [address]- 1568 May, [facility] [place] [facility] [address] [id number] [place] [address]- 4147 May, [facility] [place] [facility] [address] [id number] [place] [address]- 6325 May, [facility] [place] [facility] [address] [id number] [place] [address]- 4915 May, [facility] [place] [facility] [address] [id number] [place] [address]- 1372 Apr, [facility] [place] [facility] [address] [id number] [place] [address]- 4187 Apr, [facility] [place] [facility] [address] [id number] [place] [address]- 5763 15 Feb, 2014 [facility] [place] [facility] [address] [id number] [place] [address]- 6146 15 Feb, 2014 [facility] [place] [facility] [address] [id number] [place] [address]- 0516 10 Feb, 2014 [facility] [place] [facility] [address] [id number] [place] [address]- 1989 10 Feb, 2014 [facility] [place] [facility] [address] [id number] [place] [address]- 5647 05 Feb, 2014 [facility] [place] [facility] [address] [id number] [place] [address]- 7862 Feb, [facility] [place] [facility] [address] [id number] [place] [address]- 0929 Jan, [facility] [place] [facility] [address] [id number] [place] [address]- 1887 Jan, [facility] [place] [facility] [address] [id number] [place] [address]- 8458 Jan, [facility] [place] [facility] [address] [id number] [place] [address]- 9468 Jan, [facility] [place] [facility] [address] [id number] [place] [address]- 2884 Jan, [facility] [place] [facility] [address] [id number] [place] [address]- 0934 Jan, [facility] [place] [facility] [address] [id number] [place] [address]- 8989 Dec, [facility] [place] [facility] [address] [id number] [place] [address]- 0008 Dec, [facility] [place] [facility] [address] [id number] [place] [address]- 8905 Nov, [facility] [place] [facility] [address] [id number] [place] [address]- 8880 Nov, [facility] [place] [facility] [address] [id number] [place] [address]- 9481 Nov, [facility] [place] [facility] [address] [id number] [place] [address]- 1408 Nov, [facility] [place] [facility] [address] [id number] [place] [address]- 0961 Nov, [facility] [place] [facility] [address] [id number] [place] [address]- 3714 Nov, [facility] [place] [facility] [address] [id number] [place] [address]- 0736 Nov, [facility] [place] [facility] [address] [id number] [place] [address]- 8420 Nov, [facility] [place] [facility] [address] [id number] [place] [address]- 5683 Nov, [facility] [place] [facility] [address] [id number] [place] [address]- 8353 Nov, [facility] [place] [facility] [address] [id number] [place] [address]- 1752 Nov, [facility] [place] [facility] [address] [id number] [place] [address]- 2265 Nov, [facility] [place] [facility] [address] [id number] [place] [address]- 5022 Nov, [facility] [place] [facility] [address] [id number] [place] [address]- 1551 October, [facility] [place] [facility] [address] [id number] [place] [address]- 8604 October, [facility] [place] [facility] [address] [id number] [place] [address]- 8118 October, [facility] [place] [facility] [address] [id number] [place] [address]- 6212 October, [facility] [place] [facility] [address] [id number] [place] [address]- 5265 Sep, [facility] [place] [facility] [address] [id number] [place] [address]- 2319 Sep, [facility] [place] [facility] [address] [id number] [place] [address]- 9295 Sep, [facility] [place] [facility] [address] [id number] [place] [address]- 7855 Sep, [facility] [place] [facility] [address] [id number] [place] [address]- 3071 Aug, [facility] [place] [facility] [address] [id number] [place] [address]- 1794 Aug, [facility] [place] [facility] [address] [id number] [place] [address]- 1084 Jul, [facility] [place] [facility] [address] [id number] [place] [address]- 5755 Jul, [facility] [place] [facility] [address] [id number] [place] [address]- 2754 Jun, [facility] [place] [facility] [address] [id number] [place] [address]- 9489 Jun, [facility] [place] [facility] [address] [id number], [place] [address]- 2722 Mar, [facility] [place] [facility] [address] [id number], [place] [address]- 0336 Mar, [facility] [place] [facility] [address] [id number] [place] [address]- 0640 Mar, [facility] [place] [facility] [address] [id number] [place] [address]- 1052 Mar, [facility] [place] [facility] [address] [id number] [place] [address]- 4802 Mar, [facility] [place] [facility] [address] [id number] [place] [address]- 8377 Feb, [facility] [address] [id number] [place] [address]- 2479 Feb, [facility] [address] [id number] [place] [address]- 4524 Dec, [facility] [address] [id number] [place] [address]- 1384 Nov, [facility] [address] [id number] [place] [address]- 7869 October, [facility] [address] [id number] [place] [address]- 7278 Sep, [facility] [address] [id number] [place] [address]- 7766 Sep, [facility] [address] [id number] [place] [address]- 8988 Aug, [facility] [address] [id number] [place] [address]- 4151 Aug, [facility] [address] [id number] [place] [address]- 3865 Aug, [facility] [address] [id number] [place] [address]- 6221 Aug, [facility] [address] [id number] [place] [address] Jun, [facility] [address] [id number] [place] [address] Jun, [facility] [address] [id number] [place] [address] Jun, [facility] [address] [id number] [place] [address] May, [facility] [address] [id number] [place] [address] May, [facility] [place] [facility] [address] [id number] [place] [address] Apr, [facility] [place] [facility] [address] [id number] [place] [address] Apr, [facility] [place] [facility] [address] [id number] [place] [address] Apr, [facility] [place] [facility] [address] [id number] [place] [address] Apr, [facility] [place] [facility] [address] [id number] [place] [address] Apr, [facility] [place] [facility] [address] [id number] [place] [address] Apr, [facility] [place] [facility] [address] [id number] [place] [address] Apr, [facility] [place] [facility] [address] [id number] [place] [address] Mar, [facility] [place] [facility] [address] [id number] [place] [address] 31 Mar, 2012 [facility] [place] [facility] [address] [facility] [id number], [place] [address] 18 Feb, 2012 [facility] [place] [facility] [address] [id number], [place] [address] 17 Feb, 2012 [facility] [place] [facility] [address] [id number], [place] [address] 13 Feb, 2012 [facility] [place] [facility] [address] [id number] [place] [address] 15 Jan, 2012 [facility] [place] [facility] [address] [id number], [place] [address] 14 Jan, 2012 [facility] [place] [facility] [address] [facility] [id number], [place] [address] 06 Jan, 2012 [facility] [place] [facility] [address] [id number], [place] [address] Jan, [facility] [place] [facility] [address] [id number] [place] [address] Dec, [facility] [place] [facility] [address] [id number] [place] [address] Dec, [facility] [place] [facility] [address] [id number] [place] [address] Dec, [facility] [place] [facility] [address] [id number] [place] [address] Dec, [facility] [place] [facility] [address] [id number] [place] [address] Dec, [facility] [place] [facility] [address] [id number] [place] [address] Nov, [facility] [place] [facility] [address] [id number] [place] [address] Nov, [facility] [place] [facility] [address] [id number] [place] [address]- [address] Nov, [facility] [place] [facility] [address] [id number] [place] [address] Nov, [facility] [place] [facility] [address] [facility] [id number] [place] [address] October, [facility] [place] [facility] [address] [id number] [place] [address] October, [facility] [place] [facility] [address] [id number] [place] [address]- [address] October, [facility] [place] [facility] [address] [id number] [place] [address] October, [facility] [place] [facility] [address] [id number] [place] [address] October, [facility] [place] [facility] [address] [id number] [place] [address]- 2011 Sep, [facility] [place] [facility] [address] [id number] [place] [address] 20 Sep, 2011 [facility] [place] [facility] [address] [id number] [place] [address] 12 Sep, 2011 [facility] [place] [facility] [address] [id number] [place] [address] Sep, [facility] [place] [facility] [address] [id number] [place] [address]- [address] 03 Sep, 2011 [facility] [place] [facility] [address] [id number] [place] [address] 29 Aug, 2011 [facility] [place] [facility] [address] [id number] [place] [address] 28 Aug, 2011 [facility] [place] [facility] [address] [id number] [place] [address] 27 Aug, 2011 [facility] [place] [facility] [address] [id number] [place] [address] 26 Aug, 2011 [facility] [place] [facility] [address] [id number] [place] [address] 23 Aug, 2011 [facility] [place] [facility] [address] [id number] [place] [address] 20 Aug, 2011 [facility] [place] [facility] [address] [id number] [place] [address]- [address] 19 Aug, 2011 [facility] [facility] [facility] [address] [id number] [place] [address] 17 Aug, 2011 [facility] [place] [facility] [address] [id number] [place] [address] 18 Jun, 2011 [facility] [place] [facility] [address] [id number] [place] [address] 12 Jun, 2011 [facility] [place] [facility] [address] [id number] [place] [address] 11 Jun, 2011 [facility] [place] [facility] [address] [id number] [place] [address] Jun, [facility] [address] [id number] [address] Jun, [facility] [id number] [address] May, [facility] [id number], [place] [address] Apr, [facility] [address] [id number] [address] October, [facility] [id number], [place] [address] May, [facility] [id number] [place] [address] May, [facility] [id number], [place] [address] Apr, [facility] [id number], [place] [address] Jan, [facility] [id number], [place] [address] Dec, [facility] [id number], [place] [address] Sep, [facility] [id number], [place] [address] Sep, [facility] [id number], [place] [address] Jul, [facility] [id number], [place] [address] May, [facility] [id number], [place] [address] Jan, IMMUNIZATIONS No Known Immunizations SOCIAL HISTORY [...]
--- OUTSIDE RECORDS SUMMARY | 2017-10-06 22:46 | XMS REPORT | Continuity of Care Document ---
Author Author [facility] Organization [facility] Address Unknown Phone Unavailable Allergies Active Description Code Type Severity Reaction Onset Reported/Identified Relationship to Patient Clinical Status Yes doxycycline Drug Allergy N/A N/A 06/25/2011 Yes doxycycline Drug Allergy 06/25/2011 Yes Naprosyn 500 mg Tablet Drug Allergy N/A N/A 10/01/2011 Yes Naprosyn 500 mg Tablet Drug Allergy 10/01/2011 Yes Micardis 40 mg Tablet Drug Allergy N/A N/A 01/12/2012 Yes Micardis 40 mg Tablet Drug Allergy 01/12/2012 Yes No Known Drug Allergies [id number] Drug Allergy Unknown N/A 01/24/2014 Yes hydrocodone Drug Allergy N/A N/A 02/15/2014 Yes meloxicam [id number] Drug Allergy Unknown N/A 08/31/2017 Yes naproxen [id number] Drug Allergy Unknown N/A 08/31/2017 Medications There is no data. Problems Date Dx Coded Attending Type Code Diagnosis Diagnosed By 12/27/2008 JENNIFER CANCINO APRN 386.2 VERTIGO OF CENTRAL ORIGIN WITH POSITIONAL NYSTAGMUS 12/27/2008 JENNIFER CANCINO APRN 401.9 HYPERTENSION (SYSTEMIC) 12/27/2008 JENNIFER CANCINO APRN 719.47 joint pain in the toes 12/27/2008 386.2 VERTIGO OF CENTRAL ORIGIN WITH POSITIONAL NYSTAGMUS 12/27/2008 401.9 HYPERTENSION ( SYSTEMIC) 12/27/2008 719.47 joint pain in the toes 12/27/2008 ROSALIND STEIN MD 386.2 VERTIGO OF CENTRAL ORIGIN WITH POSITIONAL NYSTAGMUS 12/27/2008 ROSALIND STEIN MD 401.9 HYPERTENSION (SYSTEMIC) 12/27/2008 ROSALIND STEIN MD 719.47 joint pain in the toes 12/27/2008 386.2 VERTIGO OF CENTRAL ORIGIN WITH POSITIONAL NYSTAGMUS 12/27/2008 401.9 HYPERTENSION ( SYSTEMIC) 12/27/2008 719.47 joint pain in the toes 12/27/2008 386.2 VERTIGO OF CENTRAL ORIGIN WITH POSITIONAL NYSTAGMUS 12/27/2008 401.9 HYPERTENSION ( SYSTEMIC) 12/27/2008 719.47 joint pain in the toes 12/27/2008 PRUITT DO, GEGE K 386.2 Vertigo Of Central Origin With Positional Nystagmus 12/27/2008 PRUITT DO, GEGE K 401.9 HYPERTENSION (SYSTEMIC) 12/27/2008 PRUITT DO, GEGE K 719.47 Joint Pain In The Toes 12/27/2008 386.2 Vertigo Of Central Origin With Positional Nystagmus 12/27/2008 401.9 HYPERTENSION ( SYSTEMIC) 12/27/2008 719.47 Joint Pain In The Toes 12/27/2008 JENNIFER CANCINO APRN 386.2 Vertigo Of Central Origin With Positional Nystagmus 12/27/2008 JENNIFER CANCINO APRN 401.9 HYPERTENSION (SYSTEMIC) 12/27/2008 JENNIFER CANCINO APRN 719.47 Joint Pain In The Toes 12/27/2008 PRUITT DO, GEGE K 386.2 Vertigo Of Central Origin With Positional Nystagmus 12/27/2008 PRUITT DO, GEGE K 401.9 HYPERTENSION (SYSTEMIC) 12/27/2008 PRUITT DO, GEGE K 719.47 Joint Pain In The Toes 12/27/2008 JENNIFER CANCINO APRN 386.2 Vertigo Of Central Origin With Positional Nystagmus 12/27/2008 JENNIFER CANCINO APRN 401.9 HYPERTENSION (SYSTEMIC) 12/27/2008 JENNIFER CANCINO APRN 719.47 Joint Pain In The Toes 12/27/2008 JENNIFER CANCINO APRN 386.2 Vertigo Of Central Origin With Positional Nystagmus 12/27/2008 JENNIFER CANCINO APRN 401.9 HYPERTENSION (SYSTEMIC) 12/27/2008 JENNIFER CANCINO APRN 719.47 Joint Pain In The Toes 12/27/2008 JENNIFER CANCINO APRN 386.2 Vertigo Of Central Origin With Positional Nystagmus 12/27/2008 JENNIFER CANCINO APRN 401.9 HYPERTENSION (SYSTEMIC) 12/27/2008 JENNIFER CANCINO APRN 719.47 Joint Pain In The Toes 12/27/2008 OSWALD PRECIADO APRN 386.2 Vertigo Of Central Origin With Positional Nystagmus 12/27/2008 OSWALD PRECIADO APRN R 401.9 HYPERTENSION (SYSTEMIC) 12/27/2008 OSWALD PRECIADO APRN R 719.47 Joint Pain In The Toes 12/27/2008 JENNIFER CANCINO APRN 386.2 Vertigo Of Central Origin With Positional Nystagmus 12/27/2008 JENNIFER CANCINO APRN 401.9 HYPERTENSION (SYSTEMIC) 12/27/2008 JENNIFER CANCINO APRN 719.47 Joint Pain In The Toes 12/27/2008 JENNIFER CANCINO APRN 386.2 Vertigo Of Central Origin With Positional Nystagmus 12/27/2008 JENNIFER CANCINO APRN 401.9 HYPERTENSION (SYSTEMIC) 12/27/2008 JENNIFER CANCINO APRN 719.47 Joint Pain In The Toes 12/27/2008 JENNIFER CACNINO APRN 386.2 Vertigo Of Central Origin With Positional Nystagmus 12/27/2008 JENNIFER CANCINO APRN 401.9 HYPERTENSION (SYSTEMIC) 12/27/2008 JENNIFER CANCINO APRN 719.47 Joint Pain In The Toes 12/27/2008 JENNIFER CANCINO APRN 386.2 Vertigo Of Central Origin With Positional Nystagmus 12/27/2008 JENNIFER CANCINO APRN 401.9 HYPERTENSION (SYSTEMIC) 12/27/2008 JENNIFER CANCINO APRN 719.47 Joint Pain In The Toes 01/25/2009 JENNIFER CANCINO APRN 843.8 HIP SPRAIN HAMSTRING INSERTION RIGHT 01/25/2009 JENNIFER CANCINO APRN 843.9 HIP SPRAIN RIGHT 01/25/2009 843.8 HIP SPRAIN HAMSTRING INSERTION RIGHT 01/25/2009 843.9 HIP SPRAIN RIGHT 01/25/2009 ROSALIND STEIN MD 843.8 HIP SPRAIN HAMSTRING INSERTION RIGHT 01/25/2009 ROSALIND STEIN MD 843.9 HIP SPRAIN RIGHT 01/25/2009 843.8 HIP SPRAIN HAMSTRING INSERTION RIGHT 01/25/2009 843.9 HIP SPRAIN RIGHT 01/25/2009 843.8 HIP SPRAIN HAMSTRING INSERTION RIGHT 01/25/2009 843.9 HIP SPRAIN RIGHT 01/25/2009 GEGE PRUITT DO 843.8 Hip Sprain Hamstring Insertion Right 01/25/2009 PRUITT DO, GEGE K 843.9 Hip Sprain Right 01/25/2009 843.8 Hip Sprain Hamstring Insertion Right 01/25/2009 843.9 Hip Sprain Right 01/25/2009 JENNIFER CANCINO APRN T 843.8 Hip Sprain Hamstring Insertion Right 01/25/2009 JENNIFER CANCINO APRN T 843.9 Hip Sprain Right 01/25/2009 PRUITT DO, GEGE K 843.8 Hip Sprain Hamstring Insertion Right 01/25/2009 PRUITT DO, GEGE K 843.9 Hip Sprain Right 01/25/2009 JENNIFER CANCINO APRN T 843.8 Hip Sprain Hamstring Insertion Right 01/25/2009 JENNIFER CANCINO APRN T 843.9 Hip Sprain Right 01/25/2009 JENNIFER CANCINO APRN T 843.8 Hip Sprain Hamstring Insertion Right 01/25/2009 JENNIFER CANCINO APRN T 843.9 Hip Sprain Right 01/25/2009 JENNIFER CANCINO APRN 843.8 Hip Sprain Hamstring Insertion Right 01/25/2009 JENNIFER CANCINO APRN 843.9 Hip Sprain Right 01/25/2009 ILANA RIVERA, OSWALD R 843.8 Hip Sprain Hamstring Insertion Right 01/25/2009 ILANA RIVERA, OSWALD R 843.9 Hip Sprain Right 01/25/2009 JENNIFER CANCINO APRN T 843.8 Hip Sprain Hamstring Insertion Right 01/25/2009 JENNIFER CANCINO APRN T 843.9 Hip Sprain Right 01/25/2009 JENNIFER CANCINO APRN T 843.8 Hip Sprain Hamstring Insertion Right 01/25/2009 JENNIFER CANCINO APRN T 843.9 Hip Sprain Right 01/25/2009 JENNIFER CANCINO APRN T 843.8 Hip Sprain Hamstring Insertion Right 01/25/2009 JENNIFER CANCINO APRN T 843.9 Hip Sprain Right 01/25/2009 JENNIFER CANCINO APRN T 843.8 Hip Sprain Hamstring Insertion Right 01/25/2009 JENNIFER CANCINO APRN T 843.9 Hip Sprain Right 01/30/2009 JENNIFER CANCINO APRN 465.9 UPPER RESPIRATORY INFECTION 01/30/2009 465.9 UPPER RESPIRATORY INFECTION 01/30/2009 ROSALIND STEIN MD 465.9 UPPER RESPIRATORY INFECTION 01/30/2009 465.9 UPPER RESPIRATORY INFECTION 01/30/2009 465.9 UPPER RESPIRATORY INFECTION 01/30/2009 PRUITT DOGEGE K 465.9 Upper Respiratory Infection 01/30/2009 465.9 Upper Respiratory Infection 01/30/2009 JENNIFER CANCINO APRN T 465.9 Upper Respiratory Infection 01/30/2009 PRUITT DOGEGE K 465.9 Upper Respiratory Infection 01/30/2009 JENNIFER CANCINO APRN T 465.9 Upper Respiratory Infection 01/30/2009 JULITA VICTORIANJENNIFER T 465.9 Upper Respiratory Infection 01/30/2009 JULITA VICTORIANJENNIFER T 465.9 Upper Respiratory Infection 01/30/2009 ILANA RIVERA OSWALD R 465.9 Upper Respiratory Infection 01/30/2009 JENNIFER CANCINO APRN T 465.9 Upper Respiratory Infection 01/30/2009 JENNIFER CANCINO APRN T 465.9 Upper Respiratory Infection 01/30/2009 JENNIFER CANCINO APRN T 465.9 Upper Respiratory Infection 01/30/2009 JENNIFER CANCINO APRN T 465.9 Upper Respiratory Infection 02/28/2009 JENNIFER CANCINO APRN T 477.9 RHINITIS 02/28/2009 JENNIFER CANCINO APRN T 599.0 URINARY TRACT INFECTION 02/28/2009 JENNIFER CANCINO APRN T 703.0 NAIL INGROWN 02/28/2009 477.9 RHINITIS 02/28/2009 599.0 URINARY TRACT INFECTION 02/28/2009 703.0 NAIL INGROWN 02/28/2009 ROSALIND STEIN MD 477.9 RHINITIS 02/28/2009 ROSALIND STEIN MD 599.0 URINARY TRACT INFECTION 02/28/2009 ROSALIND STEIN MD 703.0 NAIL INGROWN 02/28/2009 477.9 RHINITIS 02/28/2009 599.0 URINARY TRACT INFECTION 02/28/2009 703.0 NAIL INGROWN 02/28/2009 477.9 RHINITIS 02/28/2009 599.0 URINARY TRACT INFECTION 02/28/2009 703.0 NAIL INGROWN 02/28/2009 GEGE PRUITT DO K 477.9 Rhinitis 02/28/2009 PRUITT DOGEGE K 599.0 Urinary Tract Infection 02/28/2009 PRUITT DOMUSTAPHAA K 703.0 Nail Ingrown 02/28/2009 477.9 Rhinitis 02/28/2009 599.0 Urinary Tract Infection 02/28/2009 703.0 Nail Ingrown 02/28/2009 JULITA VICTORIAN, JENNIFER T 477.9 Rhinitis 02/28/2009 JULITA DESIGN TECHNOLOGY PROFESSOR, JENNIFER T 599.0 Urinary Tract Infection 02/28/2009 JULITA DESIGN TECHNOLOGY PROFESSOR, JENNIFER T 703.0 Nail Ingrown 02/28/2009 PRUITT DO, GEGE K 477.9 Rhinitis 02/28/2009 PRUITT DO, GEGE K 599.0 Urinary Tract Infection 02/28/2009 PRUITT DO, GEGE K 703.0 Nail Ingrown 02/28/2009 JULITA DESIGN TECHNOLOGY PROFESSOR, JENNIFER T 477.9 Rhinitis 02/28/2009 JULITA DESIGN TECHNOLOGY PROFESSOR, JENNIFER T 599.0 Urinary Tract Infection 02/28/2009 JULITA DESIGN TECHNOLOGY PROFESSOR, JENNIFER T 703.0 Nail Ingrown 02/28/2009 JULITA DESIGN TECHNOLOGY PROFESSORJENNIFER T 477.9 Rhinitis 02/28/2009 JULITA DESIGN TECHNOLOGY PROFESSOR, JENNIFER T 599.0 Urinary Tract Infection 02/28/2009 JULITA VICTORIANJENNIFER T 703.0 Nail Ingrown 02/28/2009 JULITA VICTORIANJENNIFER 477.9 Rhinitis 02/28/2009 JULITA DESIGN TECHNOLOGY PROFESSOR, JENNIFER T 599.0 Urinary Tract Infection 02/28/2009 JULITA DESIGN TECHNOLOGY PROFESSOR, JENNIFER T 703.0 Nail Ingrown 02/28/2009 ILANA DESIGN TECHNOLOGY PROFESSOR, OSWALD R 477.9 Rhinitis 02/28/2009 ILANA DESIGN TECHNOLOGY PROFESSOR, OSWALD R 599.0 Urinary Tract Infection 02/28/2009 ILANA DESIGN TECHNOLOGY PROFESSOR, OSWALD R 703.0 Nail Ingrown 02/28/2009 JULITA VICTORIANJENNIFER T 477.9 Rhinitis 02/28/2009 JULITA VICTORIANJENNIFER T 599.0 Urinary Tract Infection 02/28/2009 JULITA VICTORIANJENNIFER T 703.0 Nail Ingrown 02/28/2009 JULITA DESIGN TECHNOLOGY PROFESSORJENNIFER T 477.9 Rhinitis 02/28/2009 JULITA DESIGN TECHNOLOGY PROFESSOR, JENNIFER T 599.0 Urinary Tract Infection 02/28/2009 JULITA VICTORIANJENNIFER T 703.0 Nail Ingrown 02/28/2009 JULITA VICTORIANJENNIFER T 477.9 Rhinitis 02/28/2009 JULITA VICTORIANJENNIFER T 599.0 Urinary Tract Infection 02/28/2009 JULITA VICTORIANJENNIFER T 703.0 Nail Ingrown 02/28/2009 JULITA VICTORIANJENNIFER T 477.9 Rhinitis 02/28/2009 JENNIFER CANCINO APRN 599.0 Urinary Tract Infection 02/28/2009 JENNIFER CANCINO APRN T 703.0 Nail Ingrown 05/28/2009 JENNIFER CANCINO APRN T 461.0 ACUTE MAXILLARY SINUSITIS 05/28/2009 461.0 ACUTE MAXILLARY SINUSITIS 05/28/2009 ROSALIND STEIN MD 461.0 ACUTE MAXILLARY SINUSITIS 05/28/2009 461.0 ACUTE MAXILLARY SINUSITIS 05/28/2009 461.0 ACUTE MAXILLARY SINUSITIS 05/28/2009 SONAL DO, GEGE K 461.0 Acute Maxillary Sinusitis 05/28/2009 461.0 Acute Maxillary Sinusitis 05/28/2009 JENNIFER CANCINO APRN T 461.0 Acute Maxillary Sinusitis 05/28/2009 PRUITT DO, GEGE K 461.0 Acute Maxillary Sinusitis 05/28/2009 JENNIFER CANCINO APRN T 461.0 Acute Maxillary Sinusitis 05/28/2009 JENNIFER CANCINO APRN T 461.0 Acute Maxillary Sinusitis 05/28/2009 JENNIFER CANCINO APRN T 461.0 Acute Maxillary Sinusitis 05/28/2009 ILANA RIVERA OSWALD R 461.0 Acute Maxillary Sinusitis 05/28/2009 JENNIFER CANCINO APRN T 461.0 Acute Maxillary Sinusitis 05/28/2009 JENNIFER CANCINO APRN T 461.0 Acute Maxillary Sinusitis 05/28/2009 JENNIFER CANCINO APRN T 461.0 Acute Maxillary Sinusitis 05/28/2009 JENNIFER CANCINO APRN T 461.0 Acute Maxillary Sinusitis 06/29/2009 JENNIFER CANCINO APRN 692.6 CONTACT DERMATITIS AND OTHER ECZEMA, DUE TO PLANTS [EXCEPT FOOD] 06/29/2009 692.6 CONTACT DERMATITIS AND OTHER ECZEMA, DUE TO PLANTS [EXCEPT FOOD] 06/29/2009 ROSALIND STEIN MD 692.6 CONTACT DERMATITIS AND OTHER ECZEMA, DUE TO PLANTS [EXCEPT FOOD] 06/29/2009 692.6 CONTACT DERMATITIS AND OTHER ECZEMA, DUE TO PLANTS [EXCEPT FOOD] 06/29/2009 692.6 CONTACT DERMATITIS AND OTHER ECZEMA, DUE TO PLANTS [EXCEPT FOOD] 06/29/2009 SONLA DO, GEGE K 692.6 Contact Dermatitis And Other Eczema, Due To Plants [except Food] 06/29/2009 692.6 Contact Dermatitis And Other Eczema, Due To Plants [except Food] 06/29/2009 JENNIFER CANCINO APRN 692.6 Contact Dermatitis And Other Eczema, Due To Plants [except Food] 06/29/2009 SONAL MARTINS GEGE K 692.6 Contact Dermatitis And Other Eczema, Due To Plants [except Food] 06/29/2009 JENNIFER CANCINO APRN 692.6 Contact Dermatitis And Other Eczema, Due To Plants [except Food] 06/29/2009 JENNIFER CANCINO APRN 692.6 Contact Dermatitis And Other Eczema, Due To Plants [except Food] 06/29/2009 JENNIFER CANCINO APRN 692.6 Contact Dermatitis And Other Eczema, Due To Plants [except Food] 06/29/2009 RODOLFO PRECIADO APRNINA R 692.6 Contact Dermatitis And Other Eczema, Due To Plants [except Food] 06/29/2009 JENNIFER CANCINO APRN 692.6 Contact Dermatitis And Other Eczema, Due To Plants [except Food] 06/29/2009 JENNIFER CANCINO APRN 692.6 Contact Dermatitis And Other Eczema, Due To Plants [except Food] 06/29/2009 JENNIFER CANCINO APRN 692.6 Contact Dermatitis And Other Eczema, Due To Plants [except Food] 06/29/2009 JENNIFER CANCINO APRN 692.6 Contact Dermatitis And Other Eczema, Due To Plants [except Food] 07/24/2009 JENNIFER CANCINO APRN 780.4 DIZZINESS AND GIDDINESS 07/24/2009 780.4 DIZZINESS AND GIDDINESS 07/24/2009 EMIL NAM, ROSALIND 780.4 DIZZINESS AND GIDDINESS 07/24/2009 780.4 DIZZINESS AND GIDDINESS 07/24/2009 780.4 DIZZINESS AND GIDDINESS 07/24/2009 GEGE PRUITT DO K 780.4 Dizziness And Giddiness 07/24/2009 780.4 Dizziness And Giddiness 07/24/2009 JENNIFER CANCINO APRN 780.4 Dizziness And Giddiness 07/24/2009 PRUITT DO, GEGE K 780.4 Dizziness And Giddiness 07/24/2009 JENNIFER CANCINO APRN 780.4 Dizziness And Giddiness 07/24/2009 JENNIFER CANCINO APRN 780.4 Dizziness And Giddiness 07/24/2009 JENNIFER CANCINO APRN 780.4 Dizziness And Giddiness 07/24/2009 RODOLFO PRECIADO APRNINA R 780.4 Dizziness And Giddiness 07/24/2009 JENNIFER CANCINO APRN 780.4 Dizziness And Giddiness 07/24/2009 JENNIFER CANCINO APRN 780.4 Dizziness And Giddiness 07/24/2009 JENNIFER CANCINO APRN 780.4 Dizziness And Giddiness 07/24/2009 JENNIFER CANCINO APRN 780.4 Dizziness And Giddiness 09/06/2009 JENNIFER CANCINO APRN NODX NO DIAGNOSIS 09/06/2009 NODX NO DIAGNOSIS 09/06/2009 ROSALIND STEIN MD NODX NO DIAGNOSIS 09/06/2009 NODX NO DIAGNOSIS 09/06/2009 NODX NO DIAGNOSIS 09/06/2009 MUSTAPHA PRUITT DOA K NODX No Diagnosis 09/06/2009 NODX No Diagnosis 09/06/2009 JENNIFER CANCINO APRN NODX No Diagnosis 09/06/2009 GEGE PRUITT DO NODX No Diagnosis 09/06/2009 JENNIFER CANCINO APRN NODX No Diagnosis 09/06/2009 JENNIFER CANCINO APRN NODX No Diagnosis 09/06/2009 JENNIFER CANCINO APRN NODX No Diagnosis 09/06/2009 OSWALD PRECIADO APRN R NODX No Diagnosis 09/06/2009 JENNIFER CANCINO APRN NODX No Diagnosis 09/06/2009 JENNIFER CANCINO APRN NODX No Diagnosis 09/06/2009 JENNIFER CANCINO APRN NODX No Diagnosis 09/06/2009 JENNIFER CANCINO APRN NODX No Diagnosis 09/17/2009 JENNIFER CANCINO APRN 493.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 09/17/2009 493.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 09/17/2009 ROSALIND STEIN MD 493.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 09/17/2009 493.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 09/17/2009 493.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 09/17/2009 GEGE PRUITT DO 493.82 Cough Variant Asthma 09/17/2009 493.82 Cough Variant Asthma 09/17/2009 JENNIFER CANCINO APRN 493.82 Cough Variant Asthma 09/17/2009 GEGE PRUITT DO 493.82 Cough Variant Asthma 09/17/2009 JENNIFER CANCINO APRN 493.82 Cough Variant Asthma 09/17/2009 JENNIFER CANCINO APRN 493.82 Cough Variant Asthma 09/17/2009 JENNIFER CANCINO APRN 493.82 Cough Variant Asthma 09/17/2009 OSWALD PRECIADO APRN 493.82 Cough Variant Asthma 09/17/2009 JENNIFER CANCINO APRN 493.82 Cough Variant Asthma 09/17/2009 JENNIFER CANCINO APRN 493.82 Cough Variant Asthma 09/17/2009 JENNIFER CANCINO APRN 493.82 Cough Variant Asthma 09/17/2009 JENNIFER CANCINO APRN 493.82 Cough Variant Asthma 09/28/2009 JENNIFER CANCINO APRN 490 BRONCHITIS, NOT SPECIFIED ACUTE OR CHRONIC 09/28/2009 JENNIFER CANCINO APRN 786.05 shortness of breath 09/28/2009 JENNIFER CANCINO APRN 786.07 WHEEZING 09/28/2009 JENNIFER CANCINO APRN 786.2 cough 09/28/2009 490 BRONCHITIS, NOT SPECIFIED ACUTE OR CHRONIC 09/28/2009 786.05 shortness of breath 09/28/2009 786.07 WHEEZING 09/28/2009 786.2 cough 09/28/2009 ROSALIND STEIN MD 490 BRONCHITIS, NOT SPECIFIED ACUTE OR CHRONIC 09/28/2009 ROSALIND STEIN MD 786.05 shortness of breath 09/28/2009 ROSALIND STEIN MD 786.07 WHEEZING 09/28/2009 ROSALIND STEIN MD 786.2 cough 09/28/2009 490 BRONCHITIS, NOT SPECIFIED ACUTE OR CHRONIC 09/28/2009 786.05 shortness of breath 09/28/2009 786.07 WHEEZING 09/28/2009 786.2 cough 09/28/2009 490 BRONCHITIS, NOT SPECIFIED ACUTE OR CHRONIC 09/28/2009 786.05 shortness of breath 09/28/2009 786.07 WHEEZING 09/28/2009 786.2 cough 09/28/2009 PRUITT DO, GEGE K 490 Bronchitis, Not Specified As Acute Or Chronic 09/28/2009 PRUITT DO, GEGE K 786.05 Shortness Of Breath 09/28/2009 PRUITT DO, GEGE K 786.07 Wheezing 09/28/2009 PRUITT DO, GEGE K 786.2 Cough 09/28/2009 490 Bronchitis, Not Specified As Acute Or Chronic 09/28/2009 786.05 Shortness Of Breath 09/28/2009 786.07 Wheezing 09/28/2009 786.2 Cough 09/28/2009 JENNIFER CANCINO APRN 490 Bronchitis, Not Specified As Acute Or Chronic 09/28/2009 JENNIFER CANCINO APRN 786.05 Shortness Of Breath 09/28/2009 JULITA RIVERA JENNIFER T 786.07 Wheezing 09/28/2009 JULITA DESIGN TECHNOLOGY PROFESSOR, JENNIFER T 786.2 Cough 09/28/2009 PRUITT DO, GEGE K 490 Bronchitis, Not Specified As Acute Or Chronic 09/28/2009 PRUITT DO, GEGE K 786.05 Shortness Of Breath 09/28/2009 PRUITT DO, GEGE K 786.07 Wheezing 09/28/2009 PRUITT DO, GEGE K 786.2 Cough 09/28/2009 JULITA VICTORIANJENNIFER 490 Bronchitis, Not Specified As Acute Or Chronic 09/28/2009 JULITA DESIGN TECHNOLOGY PROFESSORJENNIFER T 786.05 Shortness Of Breath 09/28/2009 JULITA VICTORIANJENNIFER T 786.07 Wheezing 09/28/2009 JULITA VICTORIANJENNIFER T 786.2 Cough 09/28/2009 JULITA VICTORIANJENNIFER 490 Bronchitis, Not Specified As Acute Or Chronic 09/28/2009 JULITA VICTORIANJENNIFER 786.05 Shortness Of Breath 09/28/2009 JENNIFER CANCINO APRN T 786.07 Wheezing 09/28/2009 JULITA VICTORIANJENNIFER T 786.2 Cough 09/28/2009 JULITA VICTORIANJENNIFER 490 Bronchitis, Not Specified As Acute Or Chronic 09/28/2009 JULITA VICTORIANJENNIFER 786.05 Shortness Of Breath 09/28/2009 JULITA VICTORIANJENNIFER T 786.07 Wheezing 09/28/2009 JULITA VICTORIANJENNIFER T 786.2 Cough 09/28/2009 ILANA DESIGN TECHNOLOGY PROFESSOR, OSWALD R 490 Bronchitis, Not Specified As Acute Or Chronic 09/28/2009 ILANA DESIGN TECHNOLOGY PROFESSOR, OSWADL R 786.05 Shortness Of Breath 09/28/2009 ILANA DESIGN TECHNOLOGY PROFESSOR, OSWALD R 786.07 Wheezing 09/28/2009 ILANA DESIGN TECHNOLOGY PROFESSOR, OSWALD R 786.2 Cough 09/28/2009 JULITA VICTORIANJENNIFER 490 Bronchitis, Not Specified As Acute Or Chronic 09/28/2009 JULITA VICTORIANJENNIFER T 786.05 Shortness Of Breath 09/28/2009 JULITA VICTORIANJENNIFER T 786.07 Wheezing 09/28/2009 JULITA VICTORIANJENNIFER T 786.2 Cough 09/28/2009 JULITA VICTORIANJENNIFER 490 Bronchitis, Not Specified As Acute Or Chronic 09/28/2009 JULITA VICTORIANJENNIFER T 786.05 Shortness Of Breath 09/28/2009 JULITA VICTORIANJENNIFER T 786.07 Wheezing 09/28/2009 JENNIFER CANCINO APRN 786.2 Cough 09/28/2009 JENNIFER CANCINO APRN 490 Bronchitis, Not Specified As Acute Or Chronic 09/28/2009 JENNIFER CANCINO APRN 786.05 Shortness Of Breath 09/28/2009 JENNIFER CANCINO APRN 786.07 Wheezing 09/28/2009 JENNIFER CANCINO APRN 786.2 Cough 09/28/2009 JENNIFER CANCINO APRN 490 Bronchitis, Not Specified As Acute Or Chronic 09/28/2009 JENNIFER CANCINO APRN 786.05 Shortness Of Breath 09/28/2009 JENNIFER CANCINO APRN 786.07 Wheezing 09/28/2009 JENNIFER CANCINO APRN 786.2 Cough 12/19/2009 JENNIFER CANCINO APRN 782.3 EDEMA 12/19/2009 782.3 EDEMA 12/19/2009 ROSALIND STEIN MD 782.3 EDEMA 12/19/2009 782.3 EDEMA 12/19/2009 782.3 EDEMA 12/19/2009 PRUITT DO, GEGE K 782.3 Edema 12/19/2009 782.3 Edema 12/19/2009 JENNIFER CANCINO APRN 782.3 Edema 12/19/2009 PRUITT DO, GEGE K 782.3 Edema 12/19/2009 JENNIFER CANCINO APRN 782.3 Edema 12/19/2009 JENNIFER CANCINO APRN 782.3 Edema 12/19/2009 JENNIFER CANCINO APRN 782.3 Edema 12/19/2009 OSWALD PRECIADO APRN R 782.3 Edema 12/19/2009 JENNIFER CANCINO APRN 782.3 Edema 12/19/2009 JENNIFER CANCINO APRN 782.3 Edema 12/19/2009 JENNIFER CANCINO APRN 782.3 Edema 12/19/2009 JENNIFER CANCINO APRN 782.3 Edema 02/06/2010 JENNIFER CANCINO APRN 112.9 CANDIDIASIS, OF UNSPECIFIED SITE 02/06/2010 JENNIFER CANCINO APRN 296.90 MOOD DISORDER 02/06/2010 JENNIFER CANCINO APRN 780.79 MALAISE AND FATIGUE 02/06/2010 JENNIFER CANCINO APRN V72.31 LINEN AIDE EXAM, ROUTINE 02/06/2010 112.9 CANDIDIASIS, OF UNSPECIFIED SITE 02/06/2010 296.90 MOOD DISORDER 02/06/2010 780.79 MALAISE AND FATIGUE 02/06/2010 V72.31 LINEN AIDE EXAM, ROUTINE 02/06/2010 ROSALIND STEIN MD 112.9 CANDIDIASIS, OF UNSPECIFIED SITE 02/06/2010 ROSALIND STEIN MD 296.90 MOOD DISORDER 02/06/2010 ROSALIND STEIN MD 780.79 MALAISE AND FATIGUE 02/06/2010 ROSALIND STEIN MD V72.31 LINEN AIDE EXAM, ROUTINE 02/06/2010 112.9 CANDIDIASIS, OF UNSPECIFIED SITE 02/06/2010 296.90 MOOD DISORDER 02/06/2010 780.79 MALAISE AND FATIGUE 02/06/2010 V72.31 LINEN AIDE EXAM, ROUTINE 02/06/2010 112.9 CANDIDIASIS, OF UNSPECIFIED SITE 02/06/2010 296.90 MOOD DISORDER 02/06/2010 780.79 MALAISE AND FATIGUE 02/06/2010 V72.31 LINEN AIDE EXAM, ROUTINE 02/06/2010 PRUITT DO GEGE K 112.9 Candidiasis, Of Unspecified Site 02/06/2010 PRUITT DO GEGE K 296.90 MOOD DISORDER 02/06/2010 PRUITT DO GEGE K 780.79 Malaise And Fatigue 02/06/2010 PRUITT DO GEGE K V72.31 Senior Benefits Specialist Exam, Routine 02/06/2010 112.9 Candidiasis, Of Unspecified Site 02/06/2010 296.90 MOOD DISORDER 02/06/2010 780.79 Malaise And Fatigue 02/06/2010 V72.31 Senior Benefits Specialist Exam, Routine 02/06/2010 JENNIFER CANCINO APRN 112.9 Candidiasis, Of Unspecified Site 02/06/2010 JENNIFER CANCINO APRN 296.90 MOOD DISORDER 02/06/2010 JENNIFER CANCINO APRN 780.79 Malaise And Fatigue 02/06/2010 JENNIFER CANCINO APRN V72.31 Senior Benefits Specialist Exam, Routine 02/06/2010 MUSTAPHA PRUITT DOA K 112.9 Candidiasis, Of Unspecified Site 02/06/2010 SONAL MARTINS GEGE K 296.90 MOOD DISORDER 02/06/2010 PRUITT DO GEGE K 780.79 Malaise And Fatigue 02/06/2010 PRUITT DO GEGE K V72.31 Senior Benefits Specialist Exam, Routine 02/06/2010 JENNIFER CANCINO APRN 112.9 Candidiasis, Of Unspecified Site 02/06/2010 JENNIFER CANCINO APRN 296.90 MOOD DISORDER 02/06/2010 JULITA RIVERAJENNIFER T 780.79 Malaise And Fatigue 02/06/2010 JULITA DESIGN TECHNOLOGY PROFESSORJENNIFER T V72.31 Senior Benefits Specialist Exam, Routine 02/06/2010 JULITA DESIGN TECHNOLOGY PROFESSORJENNIFER T 112.9 Candidiasis, Of Unspecified Site 02/06/2010 JULITA DESIGN TECHNOLOGY PROFESSOR, JENNIFER T 296.90 MOOD DISORDER 02/06/2010 JULITA DESIGN TECHNOLOGY PROFESSORJENNIFER T 780.79 Malaise And Fatigue 02/06/2010 JULITA DESIGN TECHNOLOGY PROFESSORJENNIFER T V72.31 Senior Benefits Specialist Exam, Routine 02/06/2010 JULITA DESIGN TECHNOLOGY PROFESSORJENNIFER T 112.9 Candidiasis, Of Unspecified Site 02/06/2010 JULITA DESIGN TECHNOLOGY PROFESSORJENNIFER T 296.90 MOOD DISORDER 02/06/2010 JULITA DESIGN TECHNOLOGY PROFESSORJENNIFER T 780.79 Malaise And Fatigue 02/06/2010 JULITA DESIGN TECHNOLOGY PROFESSORJENNIFER T V72.31 Senior Benefits Specialist Exam, Routine 02/06/2010 ILANA DESIGN TECHNOLOGY PROFESSOR, OSWALD R 112.9 Candidiasis, Of Unspecified Site 02/06/2010 ILANA DESIGN TECHNOLOGY PROFESSOR, OSWALD R 296.90 MOOD DISORDER 02/06/2010 ILANA DESIGN TECHNOLOGY PROFESSOR, OSWALD R 780.79 Malaise And Fatigue 02/06/2010 ILANA DESIGN TECHNOLOGY PROFESSOR, OSWALD R V72.31 Senior Benefits Specialist Exam, Routine 02/06/2010 JULITA VICTORIANJENNIFER T 112.9 Candidiasis, Of Unspecified Site 02/06/2010 JULITA VICTORIANJENNIFER T 296.90 MOOD DISORDER 02/06/2010 JULITA VICTORIAN JENNIFER T 780.79 Malaise And Fatigue 02/06/2010 JULITA VICTORIANJENNIFER T V72.31 Senior Benefits Specialist Exam, Routine 02/06/2010 JULITA VICTORIANJENNIFER T 112.9 Candidiasis, Of Unspecified Site 02/06/2010 JULITA VICTORIAN JENNIFER T 296.90 MOOD DISORDER 02/06/2010 JULITA DESIGN TECHNOLOGY PROFESSORJENNIFER T 780.79 Malaise And Fatigue 02/06/2010 JULITA DESIGN TECHNOLOGY PROFESSORJENNIFER T V72.31 Senior Benefits Specialist Exam, Routine 02/06/2010 JULITA DESIGN TECHNOLOGY PROFESSOR JENNIFER T 112.9 Candidiasis, Of Unspecified Site 02/06/2010 JULITA VICTORIAN JENNIFER T 296.90 MOOD DISORDER 02/06/2010 JULITA VICTORIANJENNIFER T 780.79 Malaise And Fatigue 02/06/2010 JULITA VICTORIANJENNIFER T V72.31 Senior Benefits Specialist Exam, Routine 02/06/2010 JULITA VICTORIANJENNIFER T 112.9 Candidiasis, Of Unspecified Site 02/06/2010 JENNIFER CANCINO APRN 296.90 MOOD DISORDER 02/06/2010 JENNIFER CANCINO APRN 780.79 Malaise And Fatigue 02/06/2010 JENNIFER CANCINO APRN V72.31 Senior Benefits Specialist Exam, Routine 05/06/2010 JENNIFER CANCINO APRN 724.2 LUMBAGO 05/06/2010 724.2 LUMBAGO 05/06/2010 ROSALIND STEIN MD 724.2 LUMBAGO 05/06/2010 724.2 LUMBAGO 05/06/2010 724.2 LUMBAGO 05/06/2010 PRUITT DO, GEGE K 724.2 Lumbago 05/06/2010 724.2 Lumbago 05/06/2010 JENNIFER CANCINO APRN 724.2 Lumbago 05/06/2010 PRUITT DO, GEGE K 724.2 Lumbago 05/06/2010 JENNIFER CANCINO APRN 724.2 Lumbago 05/06/2010 JENNIFER CANCINO APRN 724.2 Lumbago 05/06/2010 JENNIFER CANCINO APRN 724.2 Lumbago 05/06/2010 ILANA RIVERA OSWALD R 724.2 Lumbago 05/06/2010 JENNIFER CANCINO APRN 724.2 Lumbago 05/06/2010 JENNIFER CANCINO APRN 724.2 Lumbago 05/06/2010 JENNIFER CANCINO APRN 724.2 Lumbago 05/06/2010 JENNIFER CANCINO APRN 724.2 Lumbago 06/04/2010 JENNIFER CANCINO APRN 381.81 EUSTACHIAN TUBE DYSFUNCTION 06/04/2010 JENNIFER CANCINO APRN 388.70 OTALGIA UNSPECIFIED 06/04/2010 381.81 EUSTACHIAN TUBE DYSFUNCTION 06/04/2010 388.70 OTALGIA UNSPECIFIED 06/04/2010 ROSALIND STEIN MD 381.81 EUSTACHIAN TUBE DYSFUNCTION 06/04/2010 ROSALIND STEIN MD 388.70 OTALGIA UNSPECIFIED 06/04/2010 381.81 EUSTACHIAN TUBE DYSFUNCTION 06/04/2010 388.70 OTALGIA UNSPECIFIED 06/04/2010 381.81 EUSTACHIAN TUBE DYSFUNCTION 06/04/2010 388.70 OTALGIA UNSPECIFIED 06/04/2010 PRUITT DO, GEGE K 381.81 Eustachian Tube Dysfunction 06/04/2010 PRUITT DO, GEGE K 388.70 Otalgia Unspecified 06/04/2010 381.81 Eustachian Tube Dysfunction 06/04/2010 388.70 Otalgia Unspecified 06/04/2010 JENNIFER CANCINO APRN T 381.81 Eustachian Tube Dysfunction 06/04/2010 JENNIFER CANCINO APRN 388.70 Otalgia Unspecified 06/04/2010 PRUITT DO, GEGE K 381.81 Eustachian Tube Dysfunction 06/04/2010 PRUITT DO, GEGE K 388.70 Otalgia Unspecified 06/04/2010 JENNIFER CANCINO APRN 381.81 Eustachian Tube Dysfunction 06/04/2010 JENNIFER CANCINO APRN 388.70 Otalgia Unspecified 06/04/2010 JENNIFER CANCINO APRN 381.81 Eustachian Tube Dysfunction 06/04/2010 JENNIFER CANCINO APRN 388.70 Otalgia Unspecified 06/04/2010 JENNIFER CANCINO APRN T 381.81 Eustachian Tube Dysfunction 06/04/2010 JENNIFER CANCINO APRN T 388.70 Otalgia Unspecified 06/04/2010 ILANA VICTORIAN, OSWALD R 381.81 Eustachian Tube Dysfunction 06/04/2010 ILANA VICTORIAN, OSWALD R 388.70 Otalgia Unspecified 06/04/2010 JENNIFER CANCINO APRN T 381.81 Eustachian Tube Dysfunction 06/04/2010 JENNIFER CANCINO APRN T 388.70 Otalgia Unspecified 06/04/2010 JENNIFER CANCINO APRN T 381.81 Eustachian Tube Dysfunction 06/04/2010 JENNIFER CANCINO APRN T 388.70 Otalgia Unspecified 06/04/2010 JENNIFER CANCINO APRN T 381.81 Eustachian Tube Dysfunction 06/04/2010 JENNIFER CANCINO APRN 388.70 Otalgia Unspecified 06/04/2010 JENNIFER CANCINO APRN T 381.81 Eustachian Tube Dysfunction 06/04/2010 JENNIFER CANCINO APRN 388.70 Otalgia Unspecified 07/15/2010 JENNIFER CANCINO APRN 493.92 ASTHMA WITH ACUTE EXACERBATION 07/15/2010 493.92 ASTHMA WITH ACUTE EXACERBATION 07/15/2010 ROSALIND STEIN MD 493.92 ASTHMA WITH ACUTE EXACERBATION 07/15/2010 493.92 ASTHMA WITH ACUTE EXACERBATION 07/15/2010 493.92 ASTHMA WITH ACUTE EXACERBATION 07/15/2010 GEGE PRUITT DO 493.92 ASTHMA WITH ACUTE EXACERBATION 07/15/2010 493.92 ASTHMA WITH ACUTE EXACERBATION 07/15/2010 JENNIFER CANCINO APRN 493.92 ASTHMA WITH ACUTE EXACERBATION 07/15/2010 GEGE PRUITT DO 493.92 ASTHMA WITH ACUTE EXACERBATION 07/15/2010 JENNIFER CANCINO APRN 493.92 ASTHMA WITH ACUTE EXACERBATION 07/15/2010 JENNIFER CANCINO APRN 493.92 ASTHMA WITH ACUTE EXACERBATION 07/15/2010 JENNIFER CANCINO APRN 493.92 ASTHMA WITH ACUTE EXACERBATION 07/15/2010 OSWALD PRECIADO APRN 493.92 ASTHMA WITH ACUTE EXACERBATION 07/15/2010 JENNIFER CANCINO APRN 493.92 ASTHMA WITH ACUTE EXACERBATION 07/15/2010 JENNIFER CANCINO APRN 493.92 ASTHMA WITH ACUTE EXACERBATION 07/15/2010 JENNIFER CANCINO APRN 493.92 ASTHMA WITH ACUTE EXACERBATION 07/15/2010 JENNIFER CANCINO APRN 493.92 ASTHMA WITH ACUTE EXACERBATION 01/14/2011 JENNIFER CANCINO APRN 726.32 Lateral Epicondylitis Elbow Region 01/14/2011 726.32 Lateral Epicondylitis Elbow Region 01/14/2011 EMIL NAM, ROSALIND 726.32 Lateral Epicondylitis Elbow Region 01/14/2011 726.32 Lateral Epicondylitis Elbow Region 01/14/2011 726.32 Lateral Epicondylitis Elbow Region 01/14/2011 GEGE PRUITT DO 726.32 Lateral Epicondylitis Elbow Region 01/14/2011 726.32 Lateral Epicondylitis Elbow Region 01/14/2011 JENNIFER CANCINO APRN 726.32 Lateral Epicondylitis Elbow Region 01/14/2011 GEGE PRUITT DO 726.32 Lateral Epicondylitis Elbow Region 01/14/2011 JENNIFER CANCINO APRN 726.32 Lateral Epicondylitis Elbow Region 01/14/2011 JENNIFER CANCINO APRN 726.32 Lateral Epicondylitis Elbow Region 01/14/2011 JENNIFER CANCINO APRN 726.32 Lateral Epicondylitis Elbow Region 01/14/2011 OSWALD PRECIADO APRN R 726.32 Lateral Epicondylitis Elbow Region 01/14/2011 JENNIFER CANCINO APRN 726.32 Lateral Epicondylitis Elbow Region 01/14/2011 JENNIFER CANCINO APRN 726.32 Lateral Epicondylitis Elbow Region 01/14/2011 JENNIFER CANCINO APRN 726.32 Lateral Epicondylitis Elbow Region 01/14/2011 JENNIFER CANCINO APRN 726.32 Lateral Epicondylitis Elbow Region 05/06/2011 JENNIFER CANCINO APRN 719.46 Knee Pain 05/06/2011 719.46 Knee Pain 05/06/2011 ROSALIND STEIN MD 719.46 Knee Pain 05/06/2011 719.46 Knee Pain 05/06/2011 719.46 Knee Pain 05/06/2011 SONAL DOMUSTAPHAA K 719.46 Knee Pain 05/06/2011 719.46 Knee Pain 05/06/2011 JENNIFER CANCINO APRN 719.46 Knee Pain 05/06/2011 GEGE PRUITT DO K 719.46 Knee Pain 05/06/2011 JENNIFER CANCINO APRN 719.46 Knee Pain 05/06/2011 JENNIFER CANCINO APRN 719.46 Knee Pain 05/06/2011 JENNIFER CANCINO APRN 719.46 Knee Pain 05/06/2011 OSWALD PRECIADO APRN R 719.46 Knee Pain 05/06/2011 JENNIFER CANCINO APRN 719.46 Knee Pain 05/06/2011 JENNIFER CANCINO APRN 719.46 Knee Pain 05/06/2011 JENNIFER CANCINO APRN 719.46 Knee Pain 05/06/2011 JENNIFER CANCINO APRN 719.46 Knee Pain 06/13/2011 JENNIFER CANCINO APRN 461.9 Sinusitis Acute 06/13/2011 461.9 Sinusitis Acute 06/13/2011 ROSALIND STEIN MD 461.9 Sinusitis Acute 06/13/2011 461.9 Sinusitis Acute 06/13/2011 461.9 Sinusitis Acute 06/13/2011 GEGE PRUITT DO 461.9 Sinusitis Acute 06/13/2011 461.9 Sinusitis Acute 06/13/2011 JENNIFER CANCINO APRN 461.9 Sinusitis Acute 06/13/2011 GEGE PRUITT DO 461.9 Sinusitis Acute 06/13/2011 JENNIFER CANCINO APRN 461.9 Sinusitis Acute 06/13/2011 JENNIFER CANCINO APRN T 461.9 Sinusitis Acute 06/13/2011 JULITA VICTORIANJENNIFER T 461.9 Sinusitis Acute 06/13/2011 OSWALD PRECIADO APRN R 461.9 Sinusitis Acute 06/13/2011 JENNIFER CANCINO APRN T 461.9 Sinusitis Acute 06/13/2011 JENNIFER CANCINO APRN T 461.9 Sinusitis Acute 06/13/2011 JENNIFER CANCINO APRN 461.9 Sinusitis Acute 06/13/2011 JENNIFER CANCINO APRN T 461.9 Sinusitis Acute 06/25/2011 JENNIFER CANCINO APRN 915.8 Other And Unspecified Superficial Injury Of Fingers Without Infection 06/25/2011 915.8 Other And Unspecified Superficial Injury Of Fingers Without Infection 06/25/2011 ROSALIND STEIN MD 915.8 Other And Unspecified Superficial Injury Of Fingers Without Infection 06/25/2011 915.8 Other And Unspecified Superficial Injury Of Fingers Without Infection 06/25/2011 915.8 Other And Unspecified Superficial Injury Of Fingers Without Infection 06/25/2011 GEGE PRUITT DO 915.8 Other And Unspecified Superficial Injury Of Fingers Without Infection 06/25/2011 915.8 Other And Unspecified Superficial Injury Of Fingers Without Infection 06/25/2011 JENNIFER CANCINO APRN 915.8 Other And Unspecified Superficial Injury Of Fingers Without Infection 06/25/2011 GEGE PRUITT DO 915.8 Other And Unspecified Superficial Injury Of Fingers Without Infection 06/25/2011 JENNIFER CANCINO APRN 915.8 Other And Unspecified Superficial Injury Of Fingers Without Infection 06/25/2011 JENNIFER CANCINO APRN 915.8 Other And Unspecified Superficial Injury Of Fingers Without Infection 06/25/2011 JENNIFER CANCINO APRN 915.8 Other And Unspecified Superficial Injury Of Fingers Without Infection 06/25/2011 OSWALD PRECIADO APRN R 915.8 Other And Unspecified Superficial Injury Of Fingers Without Infection 06/25/2011 JENNIFER CANCINO APRN T 915.8 Other And Unspecified Superficial Injury Of Fingers Without Infection 06/25/2011 JENNIFER CANCINO APRN 915.8 Other And Unspecified Superficial Injury Of Fingers Without Infection 06/25/2011 JENNIFER CANCINO APRN 915.8 Other And Unspecified Superficial Injury Of Fingers Without Infection 06/25/2011 JENNIFER CANCINO APRN 915.8 Other And Unspecified Superficial Injury Of Fingers Without Infection 09/03/2011 JENNIFER CANCINO APRN 729.5 PAIN IN LIMB 09/03/2011 729.5 PAIN IN LIMB 09/03/2011 ROSALIND STEIN MD 729.5 PAIN IN LIMB 09/03/2011 729.5 PAIN IN LIMB 09/03/2011 729.5 PAIN IN LIMB 09/03/2011 GEGE PRUITT DO 729.5 Pain In Limb 09/03/2011 729.5 Pain In Limb 09/03/2011 JENNIFER CANCINO APRN 729.5 Pain In Limb 09/03/2011 GEGE PRUITT DO 729.5 Pain In Limb 09/03/2011 JENNIFER CANCINO APRN 729.5 Pain In Limb 09/03/2011 JENNIFER CANCINO APRN 729.5 Pain In Limb 09/03/2011 JENNIFER CANCINO APRN 729.5 Pain In Limb 09/03/2011 OSWALD PRECIADO APRN 729.5 Pain In Limb 09/03/2011 JENNIFER CANCINO APRN 729.5 Pain In Limb 09/03/2011 JENNIFER CANCINO APRN 729.5 Pain In Limb 09/03/2011 JENNIFER CANCINO APRN 729.5 Pain In Limb 09/03/2011 JENNIFER CANCINO APRN 729.5 Pain In Limb 09/26/2011 JENNIFER CANCINO APRN 844.9 SPRAIN/STRAIN KNEE/LEG 09/26/2011 844.9 SPRAIN/STRAIN KNEE/LEG 09/26/2011 ROASLIND STEIN MD 844.9 SPRAIN/STRAIN KNEE/LEG 09/26/2011 844.9 SPRAIN/STRAIN KNEE/LEG 09/26/2011 844.9 SPRAIN/STRAIN KNEE/LEG 09/26/2011 GEGE PRUITT DO 844.9 Sprain/strain Knee/leg 09/26/2011 844.9 Sprain/strain Knee/leg 09/26/2011 JENNIFER CANCINO APRN 844.9 Sprain/strain Knee/leg 09/26/2011 GEGE PRUITT DO 844.9 Sprain/strain Knee/leg 09/26/2011 JENNIFER CANCINO APRN 844.9 Sprain/strain Knee/leg 09/26/2011 JENNIFER CANCINO APRN 844.9 Sprain/strain Knee/leg 09/26/2011 JENNIFER CANCINO APRN 844.9 Sprain/strain Knee/leg 09/26/2011 ILANA RIVERA, OSWALD R 844.9 Sprain/strain Knee/leg 09/26/2011 JENNIFER CANCINO APRN 844.9 Sprain/strain Knee/leg 09/26/2011 JENNIFER CANCINO APRN 844.9 Sprain/strain Knee/leg 09/26/2011 JENNIFER CANCINO APRN 844.9 Sprain/strain Knee/leg 09/26/2011 JENNIFER CANCINO APRN 844.9 Sprain/strain Knee/leg 10/01/2011 JENNIFER CANCINO APRN 708.9 Urticaria/hives Unspec 10/01/2011 708.9 Urticaria/ hives Unspec 10/01/2011 ROSALIND STEIN MD 708.9 Urticaria/hives Unspec 10/01/2011 708.9 Urticaria/ hives Unspec 10/01/2011 708.9 Urticaria/ hives Unspec 10/01/2011 GEGE PRUITT DO 708.9 Urticaria/hives Unspec 10/01/2011 708.9 Urticaria/ hives Unspec 10/01/2011 JENNIFER CANCINO APRN 708.9 Urticaria/hives Unspec 10/01/2011 GEGE PRUITT DO 708.9 Urticaria/hives Unspec 10/01/2011 JENNIFER CANCINO APRN 708.9 Urticaria/hives Unspec 10/01/2011 JENNIFER CANCINO APRN 708.9 Urticaria/hives Unspec 10/01/2011 JENNIFER CANCINO APRN 708.9 Urticaria/hives Unspec 10/01/2011 RODOLFO PRECIADO APRNINA R 708.9 Urticaria/hives Unspec 10/01/2011 JENNIFER CANCINO APRN 708.9 Urticaria/hives Unspec 10/01/2011 JENNIFER CANCINO APRN 708.9 Urticaria/hives Unspec 10/01/2011 JENNIFER CANCINO APRN 708.9 Urticaria/hives Unspec 10/01/2011 JENNIFER CANCINO APRN 708.9 Urticaria/hives Unspec 10/13/2011 JENNIFER CANCINO APRN V78.0 Anemia Screening 10/13/2011 V78.0 Anemia Screening 10/13/2011 ROSALIND STEIN MD V78.0 Anemia Screening 10/13/2011 V78.0 Anemia Screening 10/13/2011 V78.0 Anemia Screening 10/13/2011 PRUITT DO, GEGE K V78.0 Anemia Screening 10/13/2011 V78.0 Anemia Screening 10/13/2011 JENNIFER CANCINO APRN V78.0 Anemia Screening 10/13/2011 PRUITT DO, GEGE K V78.0 Anemia Screening 10/13/2011 JENNIFER CANCINO APRN T V78.0 Anemia Screening 10/13/2011 JENNIFER CANCINO APRN V78.0 Anemia Screening 10/13/2011 JENNIFER CANCINO APRN V78.0 Anemia Screening 10/13/2011 OSWALD PRECIADO APRN V78.0 Anemia Screening 10/13/2011 JENNIFER CANCINO APRN V78.0 Anemia Screening 10/13/2011 JENNIFER CANCINO APRN V78.0 Anemia Screening 10/13/2011 JENNIFER CANCINO APRN V78.0 Anemia Screening 10/13/2011 JENNIFER CANCINO APRN V78.0 Anemia Screening 10/21/2011 JENNIFER CANCINO APRN 719.46 KNEE PAIN 10/21/2011 719.46 KNEE PAIN 10/21/2011 ROSALIND STEIN MD 719.46 KNEE PAIN 10/21/2011 719.46 KNEE PAIN 10/21/2011 719.46 KNEE PAIN 10/21/2011 PRUITT DO, GEGE K 719.46 Knee Pain 10/21/2011 719.46 Knee Pain 10/21/2011 JENNIFER CANCINO APRN 719.46 Knee Pain 10/21/2011 PRUITT DO, GEGE K 719.46 Knee Pain 10/21/2011 JENNIFER CANCINO APRN 719.46 Knee Pain 10/21/2011 JENNIFER CANCINO APRN 719.46 Knee Pain 10/21/2011 JENNIFER CANCINO APRN 719.46 Knee Pain 10/21/2011 OSWALD PRECIADO APRN R 719.46 Knee Pain 10/21/2011 JENNIFER CANCINO APRN 719.46 Knee Pain 10/21/2011 JENNIFER CANCINO APRN 719.46 Knee Pain 10/21/2011 JENNIFER CANCINO APRN 719.46 Knee Pain 10/21/2011 JENNIFER CANCINO APRN 719.46 Knee Pain 11/20/2011 JENNIFER CANCINO APRN 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 11/20/2011 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 11/20/2011 ROSALIND TSEIN MD 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 11/20/2011 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 11/20/2011 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 11/20/2011 GEGE PRUITT DO 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 11/20/2011 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 11/20/2011 JENNIFER CANCINO APRN 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 11/20/2011 GEGE PRUITT DO 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 11/20/2011 JENNIFER CANCINO APRN 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 11/20/2011 JENNIFER CANCINO APRN 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 11/20/2011 JENNIFER CANCINO APRN 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 11/20/2011 OSWALD PRECIADO APRN 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 11/20/2011 JENNIFER CANCINO APRN 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 11/20/2011 JENNIFER CANCINO APRN 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 11/20/2011 JENNIFER CANCINO APRN 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 11/20/2011 JENNIFER CANCINO APRN 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 01/07/2012 Ot 715.36 LOC OSTEOARTH NOS-L/LEG 01/07/2012 Ot 728.71 PLANTAR FIBROMATOSIS 01/07/2012 Ot V57.1 PHYSICAL THERAPY NEC 01/12/2012 JENNIFER CANCINO APRN 724.1 PAIN IN THORACIC SPINE 01/12/2012 724.1 PAIN IN THORACIC SPINE 01/12/2012 ROSALIND STEIN MD 724.1 PAIN IN THORACIC SPINE 01/12/2012 724.1 PAIN IN THORACIC SPINE 01/12/2012 724.1 PAIN IN THORACIC SPINE 01/12/2012 GEGE PRUITT DO 724.1 Pain In Thoracic Spine 01/12/2012 724.1 Pain In Thoracic Spine 01/12/2012 JENNIFER CANCINO APRN 724.1 Pain In Thoracic Spine 01/12/2012 PRUITT DO, GEGE K 724.1 Pain In Thoracic Spine 01/12/2012 JENNIFER CANCINO APRN 724.1 Pain In Thoracic Spine 01/12/2012 JENNIFER CANCINO APRN 724.1 Pain In Thoracic Spine 01/12/2012 JENNIFER CANCINO APRN 724.1 Pain In Thoracic Spine 01/12/2012 OSWALD PRECIADO APRN R 724.1 Pain In Thoracic Spine 01/12/2012 JENNIFER CANCINO APRN 724.1 Pain In Thoracic Spine 01/12/2012 JENNIFER CANCINO APRN 724.1 Pain In Thoracic Spine 01/12/2012 JENNIFER CANCINO APRN 724.1 Pain In Thoracic Spine 01/12/2012 JENNIFER CANCINO APRN 724.1 Pain In Thoracic Spine 02/24/2012 JENNIFER CANCINO APRN 461.9 ACUTE SINUSITIS UNSPECIFIED 02/24/2012 461.9 ACUTE SINUSITIS UNSPECIFIED 02/24/2012 ROSALIND STEIN MD 461.9 ACUTE SINUSITIS UNSPECIFIED 02/24/2012 461.9 ACUTE SINUSITIS UNSPECIFIED 02/24/2012 461.9 ACUTE SINUSITIS UNSPECIFIED 02/24/2012 PRUITT DO GEGE K 461.9 Acute Sinusitis Unspecified 02/24/2012 461.9 Acute Sinusitis Unspecified 02/24/2012 JENNIFER CANCINO APRN 461.9 Acute Sinusitis Unspecified 02/24/2012 PRUITT DO GEGE K 461.9 Acute Sinusitis Unspecified 02/24/2012 JENNIFER CANCINO APRN 461.9 Acute Sinusitis Unspecified 02/24/2012 JENNIFER CANCINO APRN 461.9 Acute Sinusitis Unspecified 02/24/2012 JENNIFER CANCINO APRN 461.9 Acute Sinusitis Unspecified 02/24/2012 OSWALD PRECIADO APRN R 461.9 Acute Sinusitis Unspecified 02/24/2012 JENNIFER CANCINO APRN 461.9 Acute Sinusitis Unspecified 02/24/2012 JENNIFER CANCINO APRN 461.9 Acute Sinusitis Unspecified 02/24/2012 JENNIFER CANCINO APRN 461.9 Acute Sinusitis Unspecified 02/24/2012 JENNIFER CANCINO APRN 461.9 Acute Sinusitis Unspecified 02/27/2012 JENNIFER CANCINO APRN 626.9 MENSTRUATION AND OTHER ABNORMAL BLEEDING FROM FEMALE GENITAL TRACT 04/19/2012 JENNIFER CANCINO APRN 626.9 MENSTRUATION AND OTHER ABNORMAL BLEEDING FROM FEMALE GENITAL TRACT 05/05/2012 JENNIFER CANCINO APRN 626.9 MENSTRUATION AND OTHER ABNORMAL BLEEDING FROM FEMALE GENITAL TRACT 05/26/2012 719.41 SHOULDER JOINT PAIN 05/26/2012 ROSALIND STEIN MD 719.41 SHOULDER JOINT PAIN 05/26/2012 719.41 SHOULDER JOINT PAIN 05/26/2012 719.41 SHOULDER JOINT PAIN 05/26/2012 GEGE PRUITT DO 719.41 Shoulder Joint Pain 05/26/2012 719.41 Shoulder Joint Pain 05/26/2012 JENNIFER CANCINO APRN 719.41 Shoulder Joint Pain 05/26/2012 GEGE PRUITT DO 719.41 Shoulder Joint Pain 05/26/2012 JENNIFER CANCINO APRN 719.41 Shoulder Joint Pain 05/26/2012 JENNIFER CANCINO APRN 719.41 Shoulder Joint Pain 05/26/2012 JENNIFER CANCINO APRN 719.41 Shoulder Joint Pain 05/26/2012 OSWALD PRECIADO APRN R 719.41 Shoulder Joint Pain 05/26/2012 JENNIFER CANCINO APRN 719.41 Shoulder Joint Pain 05/26/2012 JENNIFER CANCINO APRN 719.41 Shoulder Joint Pain 05/26/2012 JENNIFER CANCINO APRN 719.41 Shoulder Joint Pain 05/26/2012 JENNIFER CANCINO APRN 719.41 Shoulder Joint Pain 05/26/2012 626.9 MENSTRUATION AND OTHER ABNORMAL BLEEDING FROM FEMALE GENITAL TRACT 06/09/2012 ROSALIND STEIN MD E906.3 INJURY CAUSED BY ANIMAL CAT BITE 06/09/2012 ROSALIND STEIN MD V06.1 DTAP DX 06/09/2012 E906.3 INJURY CAUSED BY ANIMAL CAT BITE 06/09/2012 V06.1 DTAP DX 06/09/2012 E906.3 INJURY CAUSED BY ANIMAL CAT BITE 06/09/2012 V06.1 DTAP DX 06/09/2012 GEGE PRUITT DO E906.3 Injury Caused By Animal Cat Bite 06/09/2012 GEGE PRUITT DO V06.1 Dtap Dx 06/09/2012 E906.3 Injury Caused By Animal Cat Bite 06/09/2012 V06.1 Dtap Dx 06/09/2012 JENNIFER CANCINO APRN E906.3 Injury Caused By Animal Cat Bite 06/09/2012 JENNIFER CANCINO APRN T V06.1 Dtap Dx 06/09/2012 GEGE PRUITT DO K E906.3 Injury Caused By Animal Cat Bite 06/09/2012 GEGE PRUITT DO K V06.1 Dtap Dx 06/09/2012 JENNIFER CANCINO APRN E906.3 Injury Caused By Animal Cat Bite 06/09/2012 JENNIFER CANCINO APRN V06.1 Dtap Dx 06/09/2012 JENNIFER CANCINO APRN E906.3 Injury Caused By Animal Cat Bite 06/09/2012 JENNIFER CANCINO APRN T V06.1 Dtap Dx 06/09/2012 JENNIFER CANCINO APRN E906.3 Injury Caused By Animal Cat Bite 06/09/2012 JENNIFER CANCINO APRN V06.1 Dtap Dx 06/09/2012 ILANA RIVERA OSWALD R E906.3 Injury Caused By Animal Cat Bite 06/09/2012 ILANA RIVERA OSWALD R V06.1 Dtap Dx 06/09/2012 JENNIFER CANCINO APRN T E906.3 Injury Caused By Animal Cat Bite 06/09/2012 JENNIFER CANCINO APRN T V06.1 Dtap Dx 06/09/2012 JENNIFER CANCINO APRN T E906.3 Injury Caused By Animal Cat Bite 06/09/2012 JENNIFER CANCINO APRN T V06.1 Dtap Dx 06/09/2012 JENNIFER CANCINO APRN E906.3 Injury Caused By Animal Cat Bite 06/09/2012 JENNIFER CANCINO APRN T V06.1 Dtap Dx 06/09/2012 JENNIFER CANCINO APRN T E906.3 Injury Caused By Animal Cat Bite 06/09/2012 JENNIFER CANCINO APRN T V06.1 Dtap Dx 06/09/2012 EMIL NAM, ROSALIND 626.9 MENSTRUATION AND OTHER ABNORMAL BLEEDING FROM FEMALE GENITAL TRACT 08/18/2012 535.50 GASTRITIS UNSPEC 08/18/2012 535.50 GASTRITIS UNSPEC 08/18/2012 GEGE PRUITT DO 535.50 Gastritis Unspec 08/18/2012 535.50 Gastritis Unspec 08/18/2012 JENNIFER CANCINO APRN 535.50 Gastritis Unspec 08/18/2012 GEGE PRUITT DO 535.50 Gastritis Unspec 08/18/2012 JENNIFER CANCINO APRN 535.50 Gastritis Unspec 08/18/2012 JENNIFER CANCINO APRN 535.50 Gastritis Unspec 08/18/2012 JENNIFER CANCINO APRN 535.50 Gastritis Unspec 08/18/2012 OSWALD PRECIADO APRN 535.50 Gastritis Unspec 08/18/2012 JENNIFER CANCINO APRN 535.50 Gastritis Unspec 08/18/2012 JENNIFER CANCINO APRN 535.50 Gastritis Unspec 08/18/2012 JENNIFER CANCINO APRN 535.50 Gastritis Unspec 08/18/2012 JENNIFER CANCINO APRN 535.50 Gastritis Unspec 08/20/2012 626.9 MENSTRUATION AND OTHER ABNORMAL BLEEDING FROM FEMALE GENITAL TRACT 09/02/2012 842.13 SPRAIN OF INTERPHALANGEAL (JOINT) OF HAND 09/02/2012 GEGE PRUITT DO 842.13 SPRAIN OF INTERPHALANGEAL (JOINT) OF HAND 09/02/2012 842.13 SPRAIN OF INTERPHALANGEAL (JOINT) OF HAND 09/02/2012 JENNIFER CANCINO APRN 842.13 SPRAIN OF INTERPHALANGEAL (JOINT) OF HAND 09/02/2012 GEGE PRUITT DO 842.13 SPRAIN OF INTERPHALANGEAL (JOINT) OF HAND 09/02/2012 JENNIFER CANCINO APRN 842.13 SPRAIN OF INTERPHALANGEAL (JOINT) OF HAND 09/02/2012 JENNIFER CANCINO APRN 842.13 SPRAIN OF INTERPHALANGEAL (JOINT) OF HAND 09/02/2012 JENNIFER CANCINO APRN 842.13 SPRAIN OF INTERPHALANGEAL (JOINT) OF HAND 09/02/2012 OSWALD PRECIADO APRN 842.13 SPRAIN OF INTERPHALANGEAL (JOINT) OF HAND 09/02/2012 JENNIFER CANCINO APRN 842.13 SPRAIN OF INTERPHALANGEAL (JOINT) OF HAND 09/02/2012 JENNIFER CANCINO APRN 842.13 SPRAIN OF INTERPHALANGEAL (JOINT) OF HAND 09/02/2012 JENNIFER CANCINO APRN 842.13 SPRAIN OF INTERPHALANGEAL (JOINT) OF HAND 09/02/2012 JENNIFER CANCINO APRN 842.13 SPRAIN OF INTERPHALANGEAL (JOINT) OF HAND 09/02/2012 626.9 MENSTRUATION AND OTHER ABNORMAL BLEEDING FROM FEMALE GENITAL TRACT 09/06/2012 SONAL DO, GEGE K 626.9 Menstruation And Other Abnormal Bleeding From Female Genital Tract 12/01/2012 110.1 ONYCHOMYCOSIS 12/01/2012 JENNIFER CANCINO APRN T 110.1 ONYCHOMYCOSIS 12/01/2012 PRUITT DO GEGE K 110.1 ONYCHOMYCOSIS 12/01/2012 JENNIFER CANCINO APRN T 110.1 ONYCHOMYCOSIS 12/01/2012 JENNIFER CANCINO APRN T 110.1 ONYCHOMYCOSIS 12/01/2012 JENNIFER CANCINO APRN T 110.1 ONYCHOMYCOSIS 12/01/2012 RODOLFO PRECIADO APRNINA R 110.1 ONYCHOMYCOSIS 12/01/2012 JENNIFER CANCINO APRN T 110.1 ONYCHOMYCOSIS 12/01/2012 JENNIFER CANCINO APRN T 110.1 ONYCHOMYCOSIS 12/01/2012 JENNIFER CANCINO APRN T 110.1 ONYCHOMYCOSIS 12/01/2012 JENNIFER CANCINO APRN T 110.1 ONYCHOMYCOSIS 12/01/2012 626.9 Menstruation And Other Abnormal Bleeding From Female Genital Tract 03/19/2013 JENNIFER CANCINO APRN T 493.90 ASTHMA UNSPECIFIED 03/19/2013 JENNIFER CANCINO APRN 719.45 PAIN- HIP 03/19/2013 SONAL MARTINS GEGE K 493.90 ASTHMA UNSPECIFIED 03/19/2013 SONAL MARTINS GEGE K 719.45 PAIN- HIP 03/19/2013 JENNIFER CANCINO APRN 493.90 ASTHMA UNSPECIFIED 03/19/2013 JENNIFER CANCINO APRN 719.45 PAIN- HIP 03/19/2013 JENNIFER CANCINO APRN T 493.90 ASTHMA UNSPECIFIED 03/19/2013 JENNIFER CANCINO APRN T 719.45 PAIN- HIP 03/19/2013 JENNIFER CANCINO APRN 493.90 ASTHMA UNSPECIFIED 03/19/2013 JENNIFER CANCINO APRN 719.45 PAIN- HIP 03/19/2013 ILANA RIVERA, OSWALD R 493.90 ASTHMA UNSPECIFIED 03/19/2013 ILANA RIVERA, OSWALD R 719.45 PAIN- HIP 03/19/2013 JENNIFER CANCINO APRN 493.90 ASTHMA UNSPECIFIED 03/19/2013 JENNIFER CANCINO APRN 719.45 PAIN- HIP 03/19/2013 JENNIFER CANCINO APRN T 493.90 ASTHMA UNSPECIFIED 03/19/2013 JENNIFER CANCINO APRN T 719.45 PAIN- HIP 03/19/2013 JENNIFER CANCINO APRN T 493.90 ASTHMA UNSPECIFIED 03/19/2013 JENNIFER CANCINO APRN T 719.45 PAIN- HIP 03/19/2013 JENNIFER CANCINO APRN T 493.90 ASTHMA UNSPECIFIED 03/19/2013 JENNIFER CANCINO APRN 719.45 PAIN- HIP 03/19/2013 JENNIFER CANCINO APRN T 626.9 Menstruation And Other Abnormal Bleeding From Female Genital Tract 10/06/2013 PRUITT DO GEGE K 461.9 SINUSITIS ACUTE 10/06/2013 JENNIFER CANCINO APRN 461.9 SINUSITIS ACUTE 10/06/2013 JENNIFER CANCINO APRN T 461.9 SINUSITIS ACUTE 10/06/2013 JENNIFER CANCINO APRN 461.9 SINUSITIS ACUTE 10/06/2013 ILANA RIVERA OSWALD R 461.9 SINUSITIS ACUTE 10/06/2013 JENNIFER CANCINO APRN T 461.9 SINUSITIS ACUTE 10/06/2013 JENNIFER CANCINO APRN T 461.9 SINUSITIS ACUTE 10/06/2013 JENNIFER CANCINO APRN 461.9 SINUSITIS ACUTE 10/06/2013 JENNIFER CANCINO APRN 461.9 SINUSITIS ACUTE 10/06/2013 PRUITT DO, GEGE K 626.9 Menstruation And Other Abnormal Bleeding From Female Genital Tract 11/16/2013 JENNIFER CANCINO APRN 719.47 PAIN- FOOT 11/16/2013 JENNIFER CANCINO APRN 719.47 PAIN- FOOT 11/16/2013 JENNIFER CANCINO APRN T 719.47 PAIN- FOOT 11/16/2013 ILANA VICTORIAN, OSWALD R 719.47 PAIN- FOOT 11/16/2013 JENNIFER CANCINO APRN 719.47 PAIN- FOOT 11/16/2013 JENNIFER CANCINO APRN 719.47 PAIN- FOOT 11/16/2013 JENNIFER CANCINO APRN 719.47 PAIN- FOOT 11/16/2013 JENNIFER CANCINO APRN 719.47 PAIN- FOOT 11/17/2013 JENNIFER CANCINO APRN 626.9 Menstruation And Other Abnormal Bleeding From Female Genital Tract 11/28/2013 JULITA DESIGN TECHNOLOGY PROFESSOR, JENNIFER T V72.31 LINEN AIDE EXAM, ROUTINE 11/28/2013 JULITA RIVERA, JENNIFER T V73.81 HPV SCREENING 11/28/2013 JULITA RIVERA, JENNIFER T V76.10 BREAST CANCER SCREENING 11/28/2013 JULITA RIVERA, JENNIFER T V76.2 CERVICAL CANCER SCREENING (PAP SMEAR) 11/28/2013 JULITA RIVERA, JENNIFER T V76.51 COLON CANCER SCREENING 11/28/2013 JULITA RIVERA, JENNIFER T V72.31 LINEN AIDE EXAM, ROUTINE 11/28/2013 JULITA RIVERA, JENNIFER T V73.81 HPV SCREENING 11/28/2013 JULITA RIVERA, JENNIFER T V76.10 BREAST CANCER SCREENING 11/28/2013 JULITA RIVERA, JENNIFER T V76.2 CERVICAL CANCER SCREENING (PAP SMEAR) 11/28/2013 JULITA RIVERA, JENNIFER T V76.51 COLON CANCER SCREENING 11/28/2013 ILANA RIVERA, OSWALD R V72.31 LINEN AIDE EXAM, ROUTINE 11/28/2013 ILANA RIVERA, OSWALD R V73.81 HPV SCREENING 11/28/2013 ILANA IRVERA, OSWALD R V76.10 BREAST CANCER SCREENING 11/28/2013 ILANA RIVERA, OSWALD R V76.2 CERVICAL CANCER SCREENING (PAP SMEAR) 11/28/2013 ILANA VICTORIAN, OSWALD R V76.51 COLON CANCER SCREENING 11/28/2013 JULITA RIVERA JENNIFER T V72.31 LINEN AIDE EXAM, ROUTINE 11/28/2013 JULITA RIVERA, JENNIFER T V73.81 HPV SCREENING 11/28/2013 JULITA RIVERA, JENNIFER T V76.10 BREAST CANCER SCREENING 11/28/2013 JENNIFER CANCINO APRN T V76.2 CERVICAL CANCER SCREENING (PAP SMEAR) 11/28/2013 JULITA RIVERA, JENNIFER T V76.51 COLON CANCER SCREENING 11/28/2013 JULITA RIVERA, JENNIFER T V72.31 LINEN AIDE EXAM, ROUTINE 11/28/2013 JULITA RIVERA, JENNIFER T V73.81 HPV SCREENING 11/28/2013 JULITA RIVERA, JENNIFER T V76.10 BREAST CANCER SCREENING 11/28/2013 JULITA RIVERA, JENNIFER T V76.2 CERVICAL CANCER SCREENING (PAP SMEAR) 11/28/2013 JULITA RIVERA, JENNIFER T V76.51 COLON CANCER SCREENING 11/28/2013 JULITA RIVERA JENNIFER T V72.31 LINEN AIDE EXAM, ROUTINE 11/28/2013 JULITA DESIGN TECHNOLOGY PROFESSOR, JENNIFER T V73.81 HPV SCREENING 11/28/2013 JENNIFER CANCINO APRN V76.10 BREAST CANCER SCREENING 11/28/2013 JENNIFER CANCINO APRN V76.2 CERVICAL CANCER SCREENING (PAP SMEAR) 11/28/2013 JENNIFER CANCINO APRN V76.51 COLON CANCER SCREENING 11/28/2013 JENNIFER CANCINO APRN V72.31 LINEN AIDE EXAM, ROUTINE 11/28/2013 JENNIFER CANCINO APRN V73.81 HPV SCREENING 11/28/2013 JENNIFER CANCINO APRN V76.10 BREAST CANCER SCREENING 11/28/2013 JENNIFER CANCINO APRN V76.2 CERVICAL CANCER SCREENING (PAP SMEAR) 11/28/2013 JENNIFER CANCINO APRN V76.51 COLON CANCER SCREENING 11/28/2013 JENNIFER CANCINO APRN 626.9 Menstruation And Other Abnormal Bleeding From Female Genital Tract 01/09/2014 JENNIFER KAUR DO Ot 574.20 CHOLELITHIASIS NOS 01/09/2014 JENNIFER KAUR DO Ot 789.09 ABDOMINAL PAIN, OTHER SPECIFIED SITE 01/13/2014 JENNIFER CANCINO APRN 574.20 CALCULUS OF GALLBLADDER WITHOUT CHOLECYSTITIS WITHOUT OBSTRUCTION 01/13/2014 ILANA RIVERA OSWALD R 574.20 CALCULUS OF GALLBLADDER WITHOUT CHOLECYSTITIS WITHOUT OBSTRUCTION 01/13/2014 JENNIFER CANCINO APRN 574.20 CALCULUS OF GALLBLADDER WITHOUT CHOLECYSTITIS WITHOUT OBSTRUCTION 01/13/2014 JENNIFER CANCINO APRN T 574.20 CALCULUS OF GALLBLADDER WITHOUT CHOLECYSTITIS WITHOUT OBSTRUCTION 01/13/2014 JENNIFER CANCINO APRN 574.20 CALCULUS OF GALLBLADDER WITHOUT CHOLECYSTITIS WITHOUT OBSTRUCTION 01/13/2014 JENNIFER CANCINO APRN 574.20 CALCULUS OF GALLBLADDER WITHOUT CHOLECYSTITIS WITHOUT OBSTRUCTION 01/13/2014 JENNIFER CANCINO APRN 626.9 Menstruation And Other Abnormal Bleeding From Female Genital Tract 01/25/2014 ROSALIND STEIN MD Ot 574.00 CHOLELITH W AC CHOLECYST 01/25/2014 ROSALIND STEIN MD Ot 574.10 CHOLELITH W CHOLECYS NEC 02/15/2014 ILANA RIVERA OSWALD R 462 ACUTE PHARYNGITIS 02/15/2014 JENNIFER CANCINO APRN 462 ACUTE PHARYNGITIS 02/15/2014 JENNIFER CANCINO APRN 462 ACUTE PHARYNGITIS 02/15/2014 JENNIFER CANCINO APRN T 462 ACUTE PHARYNGITIS 02/15/2014 JENNIFER CANCINO APRN T 462 ACUTE PHARYNGITIS 02/15/2014 OSWALD PRECIADO APRN R 626.9 Menstruation And Other Abnormal Bleeding From Female Genital Tract 04/28/2014 JENNIFER CANCINO APRN T 626.9 Menstruation And Other Abnormal Bleeding From Female Genital Tract 05/31/2014 JENNIFER CANCINO APRN T 626.9 Menstruation And Other Abnormal Bleeding From Female Genital Tract 06/06/2014 JENNIFER CANCINO APRN T 626.9 Menstruation And Other Abnormal Bleeding From Female Genital Tract 06/06/2014 JENNIFER CANCINO APRN T 626.9 Menstruation And Other Abnormal Bleeding From Female Genital Tract 06/06/2014 JENNIFER CANCINO APRN T 626.9 Menstruation And Other Abnormal Bleeding From Female Genital Tract 08/30/2014 JENNIFER CANCINO APRN T 626.9 Menstruation And Other Abnormal Bleeding From Female Genital Tract 09/27/2014 JENNIFER CANCINO APRN T 626.9 Menstruation And Other Abnormal Bleeding From Female Genital Tract 01/31/2016 Ot 715.36 LOC OSTEOARTH NOS-L/LEG 01/31/2016 CHRISSY NUNEZ DESIGN TECHNOLOGY PROFESSOR Ot V76.12 OTH SCREEN MAMMO-MALIGN NEOPLASM OF VEE 02/05/2016 Ot 715.36 LOC OSTEOARTH NOS-L/LEG 02/05/2016 CHRISSY NUNEZ A DESIGN TECHNOLOGY PROFESSOR Ot V76.12 OTH SCREEN MAMMO-MALIGN NEOPLASM OF VEE 02/06/2016 MANISH CONNOR Ot I10 ESSENTIAL (PRIMARY) HYPERTENSION 08/28/2017 JAYME BARNES DOA Maureen Ot F32.9 MAJOR DEPRESSIVE DISORDER, SINGLE EPISOD 08/28/2017 CAMERON MARTINS TANISHA K Ot I10 ESSENTIAL (PRIMARY) HYPERTENSION 08/28/2017 JAYME BARNES DOA K Ot J45.909 UNSPECIFIED ASTHMA, UNCOMPLICATED 08/28/2017 JAYME BARNES DOA Maureen Ot K21.9 GASTRO-ESOPHAGEAL REFLUX DISEASE WITHOUT 08/28/2017 JAYME BARNES DOA Maureen Ot R10.11 RIGHT UPPER QUADRANT PAIN 08/28/2017 TANISHA BARNES DO Ot R18.8 OTHER ASCITES 08/28/2017 JAYME BARNES DOA Maureen Ot Z79.52 DETENTION (CURRENT) USE OF SYSTEMIC STER 08/28/2017 CAMERON DO, TANISHA K Ot Z87.59 PERSONAL HISTORY OF COMP OF PREG, CHLDBR 08/28/2017 CHRISSY NUNEZ DESIGN TECHNOLOGY PROFESSOR Ot V76.12 OTH SCREEN MAMMO-MALIGN NEOPLASM OF VEE 08/28/2017 MANISH CONNOR GOLF BALL MOLDER Ot I10 ESSENTIAL (PRIMARY) HYPERTENSION 08/31/2017 CAMERON DO, TANISHA K Ot F32.9 MAJOR DEPRESSIVE DISORDER, SINGLE EPISOD 08/31/2017 CAMERON DO, TANISHA K Ot I10 ESSENTIAL (PRIMARY) HYPERTENSION 08/31/2017 CAMERON DO, TANISHA K Ot J45.909 UNSPECIFIED ASTHMA, UNCOMPLICATED 08/31/2017 CAMERON DO, TANISHA K Ot K21.9 GASTRO-ESOPHAGEAL REFLUX DISEASE WITHOUT 08/31/2017 CAMERON DO, TANISHA K Ot R10.11 RIGHT UPPER QUADRANT PAIN 08/31/2017 CAMERON DO, TANISHA K Ot R18.8 OTHER ASCITES 08/31/2017 CAMERON DO, TANISHA K Ot Z79.52 FORTUNE TELLER (CURRENT) USE OF SYSTEMIC STER 08/31/2017 CAMERON DO, TANISHA K Ot Z87.59 PERSONAL HISTORY OF COMP OF PREG, CHLDBR 08/31/2017 CAMERON DO, TANISHA K Ot R18.8 OTHER ASCITES 09/03/2017 CAMERON DO, TANISHA K Ot R18.8 OTHER ASCITES 09/06/2017 CAMERON DO, TANISHA K Ot R18.8 OTHER ASCITES 09/12/2017 CHRISSY NUNEZ DESIGN TECHNOLOGY PROFESSOR Ot V76.12 OTH SCREEN MAMMO-MALIGN NEOPLASM OF VEE 09/12/2017 MANISH CONNOR GOLF BALL MOLDER Ot I10 ESSENTIAL (PRIMARY) HYPERTENSION 09/14/2017 RADHA CARIAS DESIGN TECHNOLOGY PROFESSOR Ot R10.11 RIGHT UPPER QUADRANT PAIN 09/14/2017 RADHA CARIAS DESIGN TECHNOLOGY PROFESSOR Ot Z90.49 ACQUIRED ABSENCE OF OTHER SPECIFIED PART Procedures Code Description [place] [address] ROUTINE VENIPUNCTURE 05/05/2012 06068 TSH 05/05/2012 68691 URIC ACID 05/05/2012 83261 ASO 05/05/2012 83790 CRP 05/05/2012 90831 RA FACTOR 05/05/2012 ANAANA MANUELITO ANALYZER (SCREEN) 05/05/2012 43416 ESR/SED RATE 05/05/2012 40555 LIPID PANEL 05/05/2012 56337 H PYLORI (IN-HOUSE) 08/18/2012 04010 XRAY FOOT RIGHT 2 VIEWS 11/17/2013 01830 ROUTINE VENIPUNCTURE 11/28/2013 44389 TSH 11/28/2013 08880 PAP SMEAR 11/28/2013 Podiatry Jacey Gaines 11/28/2013 Q0091 PAP SMEAR OBTAIN SMEAR 11/28/2013 60277 HEMOCCULT 11/28/2013 27869 CBC 11/28/2013 5746920 GFR CALC (RESULT ONLY) 11/28/2013 39523 CMP 11/28/2013 20607 LIPID PANEL 11/28/2013 55476 MAMMOGRAM, SCREENING 11/30/2013 67719 OXIMETRY 04/28/2014 Results Test Result Range A1C - 08/19/17 17:46 HEMOGLOBIN A1c 5.5 % of total Hgb <5.7 LIVER PANEL (LFT) - 08/28/17 08:42 PROTEIN, TOTAL 7.7 g/dL 6.1-8.1 ALBUMIN 4.0 g/dL 3.6-5.1 GLOBULIN 3.7 g/dL (calc) 1.9-3.7 ALBUMIN/GLOBULIN RATIO 1.1 (calc) 1.0-2.5 BILIRUBIN, TOTAL 0.5 mg/dL 0.2-1.2 ALKALINE PHOSPHATASE 132 U/L 33-130 AST 22 U/L 10-35 ALT 21 U/L 6-29 BILIRUBIN, DIRECT 0.1 mg/dL < OR=0.2 BILIRUBIN, INDIRECT 0.4 mg/dL (calc) 0.2-1.2 Complete blood count (CBC) with automated white blood cell (WBC) differential - 08/28/17 10:23 Blood leukocytes automated count (number/volume) 11.7 10*3/uL 4.3-11.0 Blood erythrocytes automated count (number/volume) 4.48 10*6/uL 4.35-5.85 Venous blood hemoglobin measurement (mass/volume) 12.2 g/dL 11.5-16.0 Blood hematocrit (volume fraction) 38 % 35-52 Automated erythrocyte mean corpuscular volume 84 [foz_us] 80-99 Automated erythrocyte mean corpuscular hemoglobin (mass per erythrocyte) 27 pg 25-34 Automated erythrocyte mean corpuscular hemoglobin concentration measurement ( mass/volume) 33 g/dL 32-36 Automated erythrocyte distribution width ratio 13.1 % 10.0-14.5 Automated blood platelet count (count/volume) 590 10*3/uL 130-400 Automated blood platelet mean volume measurement 9.0 [foz_us] 7.4-10.4 Automated blood neutrophils/100 leukocytes 74 % 42-75 Automated blood lymphocytes/100 leukocytes 15 % 12-44 Blood monocytes/100 leukocytes 9 % 0-12 Automated blood eosinophils/100 leukocytes 1 % 0-10 Automated blood basophils/100 leukocytes 0 % 0-10 Blood neutrophils automated count (number/volume) 8.7 10*3 1.8-7.8 Blood lymphocytes automated count (number/volume) 1.8 10*3 1.0-4.0 Blood monocytes automated count (number/volume) 1.1 10*3 0.0-1.0 Automated eosinophil count 0.1 10*3/uL 0.0-0.3 Automated blood basophil count (count/volume) 0.0 10*3/uL 0.0-0.1 Serum or plasma choriogonadotropin ( test) detection - 08/28/17 10:23 Serum or plasma choriogonadotropin ( test) detection NEGATIVE NEGATIVE PT panel in platelet poor plasma by coagulation assay - 08/28/17 10:23 Prothrombin time (PT) in platelet poor plasma by coagulation assay 15.0 s 12.2-14.7 INR in platelet poor plasma or blood by coagulation assay 1.2 0.8-1.4 Activated partial thromboplastin time (aPTT) in platelet poor plasma bycoagulation assay - 08/28/17 10:23 Activated partial thromboplastin time (aPTT) in platelet poor plasma bycoagulation assay 37 s 24-35 Comprehensive metabolic panel - 08/28/17 10:23 Serum or plasma sodium measurement (moles/volume) 136 mmol/L 135-145 Serum or plasma potassium measurement (moles/volume) 3.8 mmol/L 3.6-5.0 Serum or plasma chloride measurement (moles/volume) 99 mmol/L 98-107 Carbon dioxide 29 mmol/L 21-32 Serum or plasma anion gap determination (moles/volume) 8 mmol/L 5-14 Serum or plasma urea nitrogen measurement (mass/volume) 15 mg/dL 7-18 Serum or plasma creatinine measurement (mass/volume) 0.91 mg/dL 0.60-1.30 Serum or plasma urea nitrogen/creatinine mass ratio 16 NRG Serum or plasma creatinine measurement with calculation of estimated glomerular filtration rate > NRG Serum or plasma glucose measurement (mass/volume) 106 mg/dL 70-105 Serum or plasma calcium measurement (mass/volume) 9.9 mg/dL 8.5-10.1 Serum or plasma total bilirubin measurement (mass/volume) 0.4 mg/dL 0.1-1.0 Serum or plasma alkaline phosphatase measurement (enzymatic activity/volume) 137 U/L 40-136 Serum or plasma aspartate aminotransferase measurement (enzymatic activity/ volume) 25 U/L 5-34 Serum or plasma alanine aminotransferase measurement (enzymatic activity/volume ) 25 U/L 0-55 Serum or plasma protein measurement (mass/volume) 8.4 g/dL 6.4-8.2 Serum or plasma albumin measurement (mass/volume) 4.1 g/dL 3.2-4.5 Magnesium - 08/28/17 10:23 Magnesium 1.8 mg/dL 1.8-2.4 Serum or plasma creatine kinase measurement (enzymatic activity/volume) - 08/28 10:23 Serum or plasma creatine kinase measurement (enzymatic activity/volume) 77 U/L 29-168 Serum or plasma creatine kinase MB measurement (enzymatic activity/volume) - 10:23 Serum or plasma creatine kinase MB measurement (enzymatic activity/volume) 1.8 ng/mL <6.6 Serum or plasma troponin i.cardiac measurement (mass/volume) - 08/28/17 10:23 Serum or plasma troponin i.cardiac measurement (mass/volume) < ng/ mL <0.30 Serum or plasma amylase measurement (enzymatic activity/volume) - 08/28/17 10: 23 Serum or plasma amylase measurement (enzymatic activity/volume) 15 U /L 25-125 Serum or plasma lithium measurement (moles/volume) - 08/28/17 10:23 BNP level 17.2 pg/mL <100.0 Lipase - 08/28/17 10:23 Lipase 6 U/L 8-78 Urine drug screening test - 08/28/17 11:45 Urine phencyclidine detection by screening method NEGATIVE NEGATIVE Urine benzodiazepines detection by screening method NEGATIVE NEGATIVE Urine cocaine detection NEGATIVE NEGATIVE Urine amphetamines detection by screening method NEGATIVE NEGATIVE Urine methamphetamine detection by screening method NEGATIVE NEGATIVE Urine cannabinoids detection by screening method NEGATIVE NEGATIVE Urine opiates detection by screening method NEGATIVE NEGATIVE Urine barbiturates detection NEGATIVE NEGATIVE Screening urine tricyclic antidepressants detection NEGATIVE NEGATIVE Urine methadone detection by screening method NEGATIVE NEGATIVE Urine oxycodone detection NEGATIVE NEGATIVE Urine propoxyphene detection NEGATIVE NEGATIVE Complete urinalysis with reflex to culture - 08/28/17 11:45 Urine color determination YELLOW NRG Urine clarity determination CLEAR NRG Urine pH measurement by test strip 6.5 5-9 Specific gravity of urine by test strip 1.020 1.016- 1.022 Urine protein assay by test strip, semi-quantitative 2+ NEGATIVE Urine glucose detection by automated test strip NEGATIVE NEGATIVE Erythrocytes detection in urine sediment by light microscopy 1+ NEGATIVE Urine ketones detection by automated test strip 1+ NEGATIVE Urine nitrite detection by test strip NEGATIVE NEGATIVE Urine total bilirubin detection by test strip NEGATIVE NEGATIVE Urine urobilinogen measurement by automated test strip (mass/volume) NORMAL NORMAL Urine leukocyte esterase detection by dipstick 2+ NEGATIVE Automated urine sediment erythrocyte count by microscopy (number/high power field) [HPF] NRG Automated urine sediment leukocyte count by microscopy (number/high power field ) [HPF] NRG Bacteria detection in urine sediment by light microscopy FEW NRG Squamous epithelial cells detection in urine sediment by light microscopy 5-10 NRG Crystals detection in urine sediment by light microscopy NONE NRG Casts detection in urine sediment by light microscopy NONE NRG Mucus detection in urine sediment by light microscopy SMALL NRG Complete urinalysis with reflex to culture YES NRG Bacterial urine culture - 08/28/17 11:45 URINE CULTURE RESULTS <10,000/ML NRG Automated blood complete blood count (hemogram) panel - 08/31/17 12:40 Blood leukocytes automated count (number/volume) 11.8 10*3/uL 4.3-11.0 Blood erythrocytes automated count (number/volume) 4.24 10*6/uL 4.35-5.85 Venous blood hemoglobin measurement (mass/volume) 11.8 g/dL 11.5-16.0 Blood hematocrit (volume fraction) 36 % 35-52 Automated erythrocyte mean corpuscular volume 84 [foz_us] 80-99 Automated erythrocyte mean corpuscular hemoglobin (mass per erythrocyte) 28 pg 25-34 Automated erythrocyte mean corpuscular hemoglobin concentration measurement ( mass/volume) 33 g/dL 32-36 Automated erythrocyte distribution width ratio 12.7 % 10.0-14.5 Automated blood platelet count (count/volume) 536 10*3/uL 130-400 Automated blood platelet mean volume measurement 9.0 [foz_us] 7.4-10.4 PT panel in platelet poor plasma by coagulation assay - 08/31/17 12:40 Prothrombin time (PT) in platelet poor plasma by coagulation assay 13.8 s 12.2-14.7 INR in platelet poor plasma or blood by coagulation assay 1.1 0.8-1.4 Activated partial thromboplastin time (aPTT) in platelet poor plasma bycoagulation assay - 08/31/17 12:40 Activated partial thromboplastin time (aPTT) in platelet poor plasma bycoagulation assay 34 s 24-35 Bacteria identification in isolate by anaerobe culture - 08/31/17 14:20 Bacteria identification in isolate by anaerobe culture NOANA NRG Gram stain microscopy - 08/31/17 14:20 Gram stain microscopy rods NRG Bacteria identification in wound by culture - 08/31/17 14:20 Bacteria identification in wound by culture [id number] NR FREE [place] [address], 18 NRG QUANTITY OF GROWTH Abundant Growth NR Bacterial susceptibility panel - 08/31/17 14:20 Gentamicin susceptibility test by minimum inhibitory concentration < = NRG Trimethoprim/sulfamethoxazole susceptibility test by minimum inhibitoryconcentration S NRG Tobramycin susceptibility test by minimum inhibitory concentration < = NRG Cefazolin susceptibility test by minimum inhibitory concentration > = NRG Piperacillin/tazobactam susceptibility test by minimum inhibitory concentration S NRG Ciprofloxacin susceptibility test by minimum inhibitory concentration <= NRG Meropenem susceptibility test by minimum inhibitory concentration < = NRG Aztreonam susceptibility test by minimum inhibitory concentration < = NRG Cefepime susceptibility test by minimum inhibitory concentration <= NRG Encounters ACCT No. Visit Date/Time Discharge Status Pt. Type Provider Facility Loc./Unit Complaint [id number] 09/11/2017 14:23:00 09/11/2017 23:59:59 CLS Outpatient RADHA CARIAS APRN [facility] RAD R10.11 RUQ ABD PAIN [id number] 08/31/2017 11:54:00 08/31/2017 15:35:00 DIS Outpatient CAMERON DO, TANISHA K [facility] RAD FLUID COLLECTION [id number] 08/28/2017 10:10:00 08/28/2017 14:38:00 DIS Emergency TANISHA BARNES DO [facility] ER CARDIAC ISSUES [id number] 02/05/2016 12:55:00 02/05/2016 23:59:59 CLS Outpatient MANISH CONNOR [facility] CARD ESSENTIAL HYPERTENSION [id number] 01/24/2014 06:25:00 01/25/2014 17:22:00 DIS Outpatient ROSALIND STEIN MD [facility] SDC ABD PAIN-KNOWN CHOLELITHIASIS [id number] 01/09/2014 13:42:00 01/09/2014 16:03:00 DIS Emergency NATASHA DOJENNIFER [facility] ER ABD PAIN [id number] 12/12/2013 14:27:00 12/12/2013 23:59:59 CLS Outpatient CHRISSY NUNEZ APRN [facility] RAD SCREENING [id number] 01/31/2016 13:01:00 Document Registration [id number] 12/31/2011 08:47:00 Document Registration [id number] 10/09/2011 09:42:00 Document Registration [id number] 09/27/2014 10:52:00 09/27/2014 23:59:59 CLS Outpatient JENNIFER CANCINO APRN [id number] 08/30/2014 10:25:00 08/30/2014 23:59:59 CLS Outpatient JENNIFER CANCINO APRN [id number] 05/31/2014 11:19:00 05/31/2014 23:59:59 CLS Outpatient JENNIFER CANCINO APRN [id number] 04/28/2014 11:30:00 04/28/2014 23:59:59 CLS Outpatient JENNIFER CANCINO APRN [id number] 02/15/2014 10:44:00 02/15/2014 23:59:59 CLS Outpatient OSWALD PRECIADO APRN [id number] 01/13/2014 12:24:00 01/13/2014 23:59:59 CLS Outpatient JENNIFER CANCINO APRN [id number] 11/28/2013 09:54:00 11/28/2013 23:59:59 CLS Outpatient JULITA VICTORIANJENNIFER Aissatou [id number] 11/16/2013 14:58:00 11/16/2013 23:59:59 CLS Outpatient JULITA VICTORIAJENNIFER Ribeiro [id number] 10/06/2013 15:34:00 10/06/2013 23:59:59 CLS Outpatient GEGE PRUITT DO Maureen [id number] 03/19/2013 09:57:00 03/19/2013 23:59:59 CLS Outpatient JULITA VICTORIAJENNIFER Ribeiro [id number] 09/06/2012 10:39:00 09/06/2012 23:59:59 CLS Outpatient GEGE PRUITT DO Maureen [id number] 09/02/2012 13:25:00 09/02/2012 23:59:59 CLS Outpatient [id number] 08/18/2012 13:24:00 08/18/2012 23:59:59 CLS Outpatient [id number] 06/09/2012 11:05:00 06/09/2012 23:59:59 CLS Outpatient EMIL NAM, ROSALIND [id number] 05/26/2012 11:55:00 05/26/2012 23:59:59 CLS Outpatient [id number] 02/24/2012 09:37:00 02/24/2012 23:59:59 CLS Outpatient JULITA DESIGN TECHNOLOGY PROFESSORJENNIFER Ribeiro [id number] 12/01/2012 11:51:00 Document Registration [id number] 09/25/2017 08:00:00 09/25/2017 23:59:59 CLS Outpatient JENNIFER CANCINO APRN [facility] [id number] 08/28/2017 08:00:00 Document Registration [id number] 08/17/2017 18:00:00 Document Registration
[2017-10-07 00:02] LABS: BASOPHILS % (AUTO) 0 % (0-10); EOSINOPHILS # (AUTO) 0.1 10^3/uL (0.0-0.3); EOSINOPHILS % (AUTO) 2 % (0-10); HEMATOCRIT 33 % (35-52); HEMOGLOBIN 10.7 G/DL (11.5-16.0); LYMPHOCYTES # (AUTO) 0.7 X 10^3 (1.0-4.0); LYMPHOCYTES % (AUTO) 9 % (12-44); MEAN CORPUSCULAR HEMOGLOBIN 26 PG (25-34); MEAN CORPUSCULAR HGB CONC 33 G/DL (32-36); MEAN CORPUSCULAR VOLUME 81 FL (80-99); MEAN PLATELET VOLUME 8.7 FL (7.4-10.4); MONOCYTES # (AUTO) 0.6 X 10^3 (0.0-1.0); MONOCYTES % (AUTO) 8 % (0-12); NEUTROPHILS # (AUTO) 6.4 X 10^3 (1.8-7.8); NEUTROPHILS % (AUTO) 81 % (42-75); PLATELET COUNT 474 10^3/uL (130-400); RED BLOOD COUNT 4.06 10^6/uL (4.35-5.85); RED CELL DISTRIBUTION WIDTH 13.7 % (10.0-14.5); WHITE BLOOD COUNT 7.9 10^3/uL (4.3-11.0)
[2017-10-07 00:23] LABS: ALANINE AMINOTRANSFERASE 31 U/L (0-55); ALBUMIN 3.5 GM/DL (3.2-4.5); ALKALINE PHOSPHATASE 119 U/L (40-136); BILIRUBIN,TOTAL 0.3 MG/DL (0.1-1.0); BUN/CREATININE RATIO 14; CALCIUM 8.8 MG/DL (8.5-10.1); CARBON DIOXIDE 23 MMOL/L (21-32); CHLORIDE 100 MMOL/L (98-107); CREATININE SERUM 0.78 MG/DL (0.60-1.30); GFR ESTIMATED > 60; GLUCOSE 113 MG/DL (70-105); POTASSIUM 3.5 MMOL/L (3.6-5.0); SODIUM 134 MMOL/L (135-145); TOTAL PROTEIN 7.4 GM/DL (6.4-8.2)
[2017-10-07] MEDS ORDERED: AMOXICILLIN 500 MG (POLYMOX) CAP PO STA (01:20)
--- NOTE | 2017-10-07 01:26 | ED Headache ---
General Chief Complaint: Head/Cervical Problems Stated Complaint: HEADACHE,NECK STIFFNESS Nursing Triage Note: headache, nausea, and neck pain, believes it is an adverse reaction to Bactrim that she started on 09/25/17. Nursing Sepsis Screen: No Definite Risk Source: patient Exam Limitations: no limitations History of Present Illness Date Seen by Provider: October 07, 2017 Time Seen by Provider: 01:00 Initial Comments Here with complaint of pain in her head behind the right eye that radiates posterior. She is worried that she is having adverse reaction of Bactrim that she's been on for almost 2 weeks that was prescribed for an abscess that she had. She had the abscess drained via CT guidance. That was done on 31 August. Does have some nasal congestion and right ear fullness and the pain to the right side of the face. Denies nausea or vomiting. Her typical pain medicines work most the time but she notes that at nighttime it seems to get worse over the past 4-5 days. Timing/Duration: 1 week, waxing and waning Severity/Quality: moderate Location: frontal Prior Headaches/Recent Trauma: occasional headaches Modifying Factors: improves with medication Associated Symptoms: No confusion, No fever/chills, No loss of consciousness, No nausea/vomiting; nasal congestion, sinus infection; No stiff neck, No weakness Allergies and Home Medications Allergies Coded Allergies: celecoxib (Verified Allergy, Mild, 10/06/17) meloxicam (Unverified Adverse Reaction, Unknown, 08/31/17) naproxen (Unverified Adverse Reaction, Unknown, 08/31/17) Home Medications Albuterol 17 Gm Inh, 2 PUFF IH Q4 -6H PRN for COUGH OR WHEEZE, (Reported) Bupropion Hcl 150 Mg Tablet, 150 MG PO DAILY, (Reported) Cyclobenzaprine Hcl 5 Mg Tablet, 5 MG PO TID PRN for TREMORS, (Reported) NEEDED FOR TREMORS Fluticasone/Salmeterol 1 Disk Inhp, 1 PUFF IH BID, (Reported) Hydrochlorothiazide 25 Mg Tablet, 25 MG PO DAILY, (Reported) Ibuprofen 800 Mg Tablet, 800 MG PO TID PRN for PAIN, (Reported) Losartan Potassium 25 Mg Tablet, 25 MG PO DAILY, (Reported) Multivitamin 1 Each Tablet, 1 TAB PO DAILY, (Reported) Omeprazole 20 Mg Capsule.dr, 20 MG PO DAILY, (Reported) Paroxetine Hcl 20 Mg Tablet, 40 MG PO HS, (Reported) Pyridoxine/Melatonin 1 Tab Tablet, 3 MG PO HS, (Reported) Terbinafine Hcl 250 Mg Tablet, 250 MG PO DAILY, (Reported) Tramadol Hcl 50 Mg Tablet, 50 MG PO Q6H PRN for PAIN, (Reported) Patient Home Medication List Home Medication List Reviewed: Yes Review of Systems Constitutional: see HPI; No chills, No fever Eyes: See HPI, Photophobia Ears, Nose, Mouth, Throat: see HPI; denies ear discharge Respiratory: no symptoms reported; No cough, No short of breath Cardiovascular: no symptoms reported Gastrointestinal: no symptoms reported Genitourinary: no symptoms reported All Other Systems Reviewed Negative Unless Noted: Yes Past Qyabqdw-Bisghc-Lvajcb Hx Past Med/Social Hx: Reviewed Nursing Past Med/Soc Hx Patient Social History Alcohol Use: Denies Use Recreational Drug Use: No Smoking Status: Never a Smoker Recent Foreign Travel: No Contact w/Someone Who Travel: No Recent Infectious Disease Expo: No Recent Hopitalizations: No Physical Abuse: No Sexual Abuse: No Mistreated: No Fear: No Immunizations Up To Date Tetanus Booster (TDap): Unknown Seasonal Allergies Seasonal Allergies: No Past Medical History Surgeries: Yes ( X 1) Section, Gallbladder Respiratory: Yes ("RESTRICTIVE LUNG DISEASE" PER PT) Asthma Cardiac: Yes Hypertension Neurological: No Reproductive Disorders: No Gastrointestinal: Yes Gastroesophageal Reflux, Gall Bladder Disease Musculoskeletal: Yes (KNEE PAIN) Endocrine: Yes (OBESITY) HEENT: No Cancer: No Psychosocial: Yes Depression Nursing Suicide Risk Score: 1 Integumentary: No Blood Disorders: No Family Medical History Reviewed Nursing Family Hx No Pertinent Family Hx Physical Exam Vital Signs Vital Signs - First Documented 10/06/17 23:15 Temp 98.0 Pulse 90 Resp 18 B/P (MAP) 150/96 (114) Pulse Ox 95 O2 Delivery Room Air Capillary Refill : Less Than 3 Seconds General Appearance: WD/WN, no apparent distress HEENT: PERRL/EOMI, pharynx normal, other (nasal congestion. Tender to the right frontal and maxillary sinus area.) Neck: full range of motion, supple Cardiovascular: regular rate, rhythm, no murmur Respiratory: lungs clear, normal breath sounds Gastrointestinal: non tender, soft Back: normal inspection, no CVA tenderness, no vertebral tenderness Extremities: non-tender, normal inspection Psychiatric: alert, oriented x 3 Coordination/Gait: normal gait Motor/Sensory: no motor deficit, no sensory deficit Skin: normal color, warm/dry Progress/Results/Core Measures Lab Results Laboratory Tests Test 10/06/17 23:47 Range/Units White Blood Count 7.9 4.3-11.0 10^3/uL Red Blood Count 4.06 L 4.35-5.85 10^6/uL Hemoglobin 10.7 L 11.5-16.0 G/DL Hematocrit 33 L 35-52 % Mean Corpuscular Volume 81 80-99 FL Mean Corpuscular Hemoglobin 26 25-34 PG Mean Corpuscular Hemoglobin Concent 33 32-36 G/DL Red Cell Distribution Width 13.7 10.0-14.5 % Platelet Count 474 H 130-400 10^3/uL Mean Platelet Volume 8.7 7.4-10.4 FL Neutrophils (%) (Auto) 81 H 42-75 % Lymphocytes (%) (Auto) 9 L 12-44 % Monocytes (%) (Auto) 8 0-12 % Eosinophils (%) (Auto) 2 0-10 % Basophils (%) (Auto) 0 0-10 % Neutrophils # (Auto) 6.4 1.8-7.8 X 10^3 Lymphocytes # (Auto) 0.7 L 1.0-4.0 X 10^3 Monocytes # (Auto) 0.6 0.0-1.0 X 10^3 Eosinophils # (Auto) 0.1 0.0-0.3 10^3/uL Basophils # (Auto) 0.0 0.0-0.1 10^3/uL Sodium Level 134 L 135-145 MMOL/L Potassium Level 3.5 L 3.6-5.0 MMOL/L Chloride Level 100 98-107 MMOL/L Carbon Dioxide Level 23 21-32 MMOL/L Anion Gap 11 5-14 MMOL/L Blood Urea Nitrogen 11 7-18 MG/DL Creatinine 0.78 0.60-1.30 MG/DL Estimat Glomerular Filtration Rate > 60 BUN/Creatinine Ratio 14 Glucose Level 113 H 70-105 MG/DL Calcium Level 8.8 8.5-10.1 MG/DL Total Bilirubin 0.3 0.1-1.0 MG/DL Aspartate Amino Transf (AST/SGOT) 36 H 5-34 U/L Alanine Aminotransferase (ALT/SGPT) 31 0-55 U/L Alkaline Phosphatase 119 40-136 U/L Total Protein 7.4 6.4-8.2 GM/DL Albumin 3.5 3.2-4.5 GM/DL My Orders Orders - EARL MCCONNELL MD Chest Pa/Lat (2 View) (10/07/17 00:01) Comprehensive Metabolic Panel (10/06/17 23:49) Cbc With Automated Diff (10/06/17 23:49) Amoxicillin 1000mg Po (10/07/17 01:20) Vital Signs/I&O 10/06/17 23:15 Temp 98.0 Pulse 90 Resp 18 B/P (MAP) 150/96 (114) Pulse Ox 95 O2 Delivery Room Air Blood Pressure Mean: 114 Progress Note : Progress Note Seen and evaluated. Chest x-ray and labs ordered. Given her recent CT-guided drainage in the area of the chest. Labs and chest x-ray are okay. Findings were consistent with sinusitis. She has had a prolonged course of Bactrim several she can stop that. Amoxicillin 1000 mg by mouth given we will use this for treatment for sinusitis mostly due to cost. She will follow-up with her Dr. she is to get an improvement in the next several days. Discharged home with return precautions. Patient verbalize understanding instructions and agreement with plan. Diagonstic Imaging: Xray Plain Films/CT/US/NM/MRI: chest Comments No acute findings 2 view chest x-ray Reviewed: Reviewed by Me Departure Impression Primary Impression: Sinusitis, acute Qualified Codes: J01.10 - Acute frontal sinusitis, unspecified Additional Impression: Headache Qualified Codes: R51 - Headache Disposition: 01 HOME, SELF-CARE Condition: Improved Departure-Patient Inst. Decision time for Depature: 01:26 Referrals: [facility] (PCP/Family) Primary Care Physician Patient Instructions: Headache, Adult (DC), Sinusitis, Adult (DC) Add. Discharge Instructions: All discharge instructions reviewed with patient and/or family. Voiced understanding. Take medication as directed. Continue home meds as previously prescribed. You may stop the Bactrim. Follow up with your doctor later this week for recheck and further evaluation. Return for worse pain, fever, vomiting, weakness, breathing problems or other concerns as needed. Drink plenty of fluids. You may use Afrin nasal spray or the generic, 12 hour relief, 2 sprays to each nostril twice daily for 3 days only and then stop. Do not use for more than 3 days. Scripts Amoxicillin (Amoxicillin) 500 Mg Capsule 1000 MG PO TID, #60 CAP 0 Refills Prov: EARL MCCONNELL MD 10/07/17 EARL MCCONNELL MD October 07, 2017 01:26
[2017-10-07] MEDS ORDERED: AMOX500C2 PO (01:28)
[2017-10-07 01:35] VITALS: BP 140/74
--- NOTE | 2017-10-07 06:28 | Diagnostic Imaging Report ---
INDICATION: Shortness of breath. Possible allergic reaction. Compared with 08/28/2017. FINDINGS: The lungs are clear. Heart is not enlarged. There is no pulmonary edema. No pneumothorax or pleural effusions. IMPRESSION: Normal PA and lateral chest. Dictated by: Dictated on workstation # [id number]
== END 2017-10-07 01:35 | disposition home or self-care (01) ==
LOC: EDUNIT# 22:35 → ER 22:35
DX: J01.90 Acute sinusitis, unspecified (principal); R51 Headache; J45.909 Unspecified asthma, uncomplicated; I10 Essential (primary) hypertension; K21.9 Gastro-esophageal reflux disease without esophagitis; E66.9 Obesity, unspecified; F32.9 Major depressive disorder, single episode, unspecified; Z87.19 Personal history of other diseases of the digestive system; Z88.8 Allergy status to other drugs, medicaments and biological substances; Z68.41 Body mass index [BMI] 40.0-44.9, adult; Z79.51 Long term (current) use of inhaled steroids; Z87.59 Personal history of other complications of pregnancy, childbirth and the puerperium
CPT/HCPCS: 36415; 71046; 80053; 85025

== ENCOUNTER 2018-05-04 06:17 | Emergency (ER) | payer OTHER ==
[~2018-05-04] VITALS: Ht 162.6 cm; Wt 107.0 kg
[~2018-05-04 06:17] MED LIST changes: +AMOX500C2 PO
[2018-05-04 06:19] VITALS: BP 164/86
[2018-05-04] MEDS ORDERED: TETANUS,DIPTH,PERTUSS P/F (BOOSTRIX) 0.5 ML VIAL IM STA (06:27)
[2018-05-04] MEDS ORDERED: LIDOCAINE/EPI 2% 1:100,00 (XYLOCAINE) 20 ML VIAL INJ ONE (06:30)
--- NOTE | 2018-05-04 06:37 | ED Fall/Injury ---
General Chief Complaint: Laceration Stated Complaint: LACERATION FROM FALL Source: patient Exam Limitations: no limitations History of Present Illness Date Seen by Provider: May 04, 2018 Time Seen by Provider: 06:19 Initial Comments Here by EMS with report of fall at work. Apparently she tripped on a carpet going into a residence room and fell and hit her head on a dresser on the top of her head. Apparently she hit on the handle. This caused a 3-4 cm laceration. She had no loss of consciousness but had fairly significant amount of bleeding at the scene per the patient. Denies other injury. Occurred: just prior to arrival (approximately 30 minutes ago) Severity: moderate Injuries/Pain Location: head Context: tripped Loss of Consciousness: no loss of consciousness Modifying Factors: Improves With Rest Associated Symptoms (Fall): No Abdominal Pain, No Chest Pain; Headache; No Nausea/Vomiting, No Shortness of Air, No Slurred Speech Allergies and Home Medications Allergies Coded Allergies: celecoxib (Verified Allergy, Mild, 10/06/17) meloxicam (Unverified Adverse Reaction, Unknown, 08/31/17) naproxen (Unverified Adverse Reaction, Unknown, 08/31/17) Home Medications Albuterol 17 Gm Inh, 2 PUFF IH Q4 -6H PRN for COUGH OR WHEEZE, (Reported) Amoxicillin 500 Mg Capsule, 1,000 MG PO TID Prescribed by: EARL MCCONNELL on 10/07/17 0128 Bupropion Hcl 150 Mg Tablet, 150 MG PO DAILY, (Reported) Cyclobenzaprine Hcl 5 Mg Tablet, 5 MG PO TID PRN for TREMORS, (Reported) NEEDED FOR TREMORS Fluticasone/Salmeterol 1 Disk Inhp, 1 PUFF IH BID, (Reported) Hydrochlorothiazide 25 Mg Tablet, 25 MG PO DAILY, (Reported) Ibuprofen 800 Mg Tablet, 800 MG PO TID PRN for PAIN, (Reported) Losartan Potassium 25 Mg Tablet, 25 MG PO DAILY, (Reported) Multivitamin 1 Each Tablet, 1 TAB PO DAILY, (Reported) Omeprazole 20 Mg Capsule.dr, 20 MG PO DAILY, (Reported) Paroxetine Hcl 20 Mg Tablet, 40 MG PO HS, (Reported) Pyridoxine/Melatonin 1 Tab Tablet, 3 MG PO HS, (Reported) Terbinafine Hcl 250 Mg Tablet, 250 MG PO DAILY, (Reported) Tramadol Hcl 50 Mg Tablet, 50 MG PO Q6H PRN for PAIN, (Reported) Patient Home Medication List Home Medication List Reviewed: Yes Review of Systems Review of Systems Constitutional: see HPI; No chills, No fever Respiratory: no symptoms reported Cardiovascular: no symptoms reported Skin: see HPI, lesions, lumps Psychiatric/Neurological: Denies Anxiety; Headache Past Imgzqjo-Hnnyta-Odpcbz Hx Past Med/Social Hx: Reviewed Nursing Past Med/Soc Hx Patient Social History Alcohol Use: Denies Use Recreational Drug Use: No Smoking Status: Never a Smoker Recent Foreign Travel: No Contact w/Someone Who Travel: No Recent Hopitalizations: No Immunizations Up To Date Tetanus Booster (TDap): Unknown Seasonal Allergies Seasonal Allergies: No Past Medical History Surgeries: Yes ( X 1) Section, Gallbladder Respiratory: Yes ("RESTRICTIVE LUNG DISEASE" PER PT) Asthma Cardiac: Yes Hypertension Neurological: No Reproductive Disorders: No Gastrointestinal: Yes Gastroesophageal Reflux, Gall Bladder Disease Musculoskeletal: Yes (KNEE PAIN) Endocrine: Yes (OBESITY) HEENT: No Cancer: No Psychosocial: Yes Depression Integumentary: No Blood Disorders: No Family Medical History Reviewed Nursing Family Hx No Pertinent Family Hx Physical Exam Vital Signs Vital Signs - First Documented 05/04/18 06:19 Temp 98.4 Pulse 76 Resp 20 B/P (MAP) 164/86 (112) Pulse Ox 95 Capillary Refill : Height, Weight, BMI Height: 5'4.00" Weight: 250lbs. oz. 113.014450fp; BMI Method:Stated General Appearance: WD/WN, no apparent distress HEENT: PERRL/EOMI, TMs normal, pharynx normal Neck: non-tender, full range of motion, supple Cardiovascular: regular rate, rhythm, no murmur Respiratory: lungs clear, normal breath sounds Gastrointestinal: non tender, soft Extremities: normal range of motion, non-tender Neurologic/Psychiatric: alert, oriented x 3 Skin: warm/dry, other (4 cm laceration to the top of the head central to the right side of midline) [place] Coma Score Best Eye Response: (4) Open Spontaneously Best Verbal Response: (5) Oriented Best Motor Response: (6) Obeys Commands Procedures/Interventions Wound Location: Scalp Other Wound Location Superior midline Wound's Depth, Shape: superficial, irregular Wound Explored: contaminated Betadine Prep?: No Anesthesia: Lidocaine w/ Epi Volume Anesthetic (ccs): 8 Wound Debrided: minimal Staple Repair: Stapler 35W Number of Sutures: 8 Layer Closure?: 1 Number Deep Layer Sutures: 0 Progress Wound anesthetized and copiously we cleaned with Betasept and saline. Wound closed with whitley with good approximation and bleeding controlled. Covered with antibiotic ointment. Progress/Results/Core Measures Results/Orders My Orders Orders - EARL MCCONNELL MD Ct Head Wo (05/04/18 06:27) Dipht,Pertuss(Acell),Tet Adult (Boostrix (05/04/18 06:27) Lidocaine/Epi 2% 1:100,000 (Xylocaine/Ep (05/04/18 06:30) Vital Signs/I&O 05/04/18 06:19 Temp 98.4 Pulse 76 Resp 20 B/P (MAP) 164/86 (112) Pulse Ox 95 Progress Progress Note : Progress Note Seen and evaluated. Due to high energy impact and small space from dresser handle, we will get CT of the head. Tetanus is unknown so we will update that today. Laceration repair with whitley. 0837. Repair complete. Tolerated procedure well with no complications. No CT evidence of acute findings. Discharged home with return precautions. Patient verbalize understanding instructions and agreement with plan. Diagnostic Imaging Diagonstic Imaging: CT Plain Films/CT/US/NM/MRI: head Comments VIA [facility]. [place], [place] NAME: RAYMOND WIGGINS [facility] REC#: [id number] PT STATUS: REG ER : 1960 PHYSICIAN: EARL MCCONNELL MD ADMIT DATE: 05/04/18/ER Draft Date of Exam:05/04/18 CT HEAD WO PROCEDURE: CT head without contrast. TECHNIQUE: Multiple contiguous axial images were obtained through the brain without the use of intravenous contrast. INDICATION: Fall. Laceration to the top of head. COMPARISON: None. FINDINGS: No intracranial hemorrhage, mass effect, hydrocephalus or extra-axial fluid collections. No CT evidence for territorial infarction. Osseous structures are intact. The visualized paranasal sinuses and mastoids are clear. IMPRESSION: No acute intracranial CT findings. Dictated on workstation # [id number] Dict: 05/04/18 0726 Trans: 05/04/18 0731 [facility] [id number] Interpreted by: SAVITA RENTERIA MD Electronically signed by: Departure Impression Primary Impression: Head injury, acute, without loss of consciousness Qualified Codes: S09.90XA - Unspecified injury of head, initial encounter Additional Impression: Scalp laceration Qualified Codes: S01.01XA - Laceration without foreign body of scalp, initial encounter Disposition: HOME, SELF-CARE Condition: Improved Departure-Patient Inst. Decision time for Depature: 08:38 [address]errals: [facility] [place] (PCP/Family) Primary Care Physician Patient Instructions: Laceration Repair With Whitley (DC) Add. Discharge Instructions: All discharge instructions reviewed with patient and/or family. Voiced understanding. [place] out in 7 days. Return here for staple removal. It is okay to shower but do not scrub vigorously. You may use antibiotic ointment over wound once or twice daily for the next several days and then as needed. Follow-up with your work or occupational health doctor as needed over the next several days. Return for worse pain, weakness, vision or balance problems, walking problems or other concerns as needed. EARL MCCONNELL MD May 04, 2018 06:37
--- OUTSIDE RECORDS SUMMARY | 2018-05-04 07:20 | XMS REPORT ---
Author Author JENNIFER CANCINO Organization [facility] Address [address] [place] [address] Care Team Providers Care Web Operations Administrator Name Role Phone JENNIFER CANCINO Unavailable PROBLEMS Type Condition ICD9-CM Code [id number] Code Onset Dates Condition Status SNOMED Code Problem Mild persistent asthma without complication J45.30 Active 595542687 Problem Edema, unspecified type R60.9 Active 846189821 Problem Gastroesophageal reflux disease with esophagitis K21.0 Active 157316757 Problem Essential hypertension I10 Active 24495433 Problem Moderate persistent asthma with exacerbation J45.41 Active 986904995 Problem Other chronic pain G89.29 Active 51183550 Problem Esophageal abnormality K22.9 Active 11210154 Problem Hammer toe of right foot M20.41 Active 957657645 Problem Abnormal EKG R94.31 Active 753337719 Problem Right upper quadrant abdominal pain R10.11 Active 762673438 ALLERGIES No Information ENCOUNTERS Encounter Location Date Diagnosis [place] [id number] [place] [address] 83951- 1860 Mar, BMI 40.0-44.9, adult Z68.41 [place] [address] [place] [id number] [place] [address] 91143- 2410 Feb, Mild persistent asthma without complication J45.30 [facility] [address] [place] [id number] [place] [address] 23704- 7605 07 Feb, 2018 Other chronic pain G89.29 [place] [address] [place] [id number] [place] [address] 90189- 0852 Feb, Other chronic pain G89.29 and BMI 40.0-44.9, adult Z68.41 [place] [address] [place] [id number] [place] [address] 39110- 0646 18 Yonathan, 2018 BMI 40.0-44.9, adult Z68.41 ; Other chronic pain G89.29 and Pain in left hip M25.552 [place] [address] [place] [id number] [place] [address] 59235- 7412 Nov, Abscess L02.91 [place] [address] [place] [id number] [place] [address] 88384- 1757 Nov, Moderate persistent asthma with exacerbation J45.41 [place] [address] [place] [id number] [place] [address] 31862- 3960 Nov, Low back pain M54.5 and Other chronic pain G89.29 [place] [address] 18251- 7893 October, Abscess L02.91 [place] [address] [place] [id number] [place] [address] 89952- 7811 October, Cutaneous abscess of back excluding buttocks L02.212 and BMI 40.0-44.9, adult Z68.41 [place] [address] [place] [id number] [place] [address] 16790- 8437 October, [place] [address] [place] [id number] [place] [address] 44866- 4149 October, [place] [address] [place] [id number] [place] [address] 58201- 7522 Sep, [place] [address] [place] [id number] [place] [address] 82277- 6543 Sep, Abscess L02.91 [place] [address] [place] [id number] [place] [address] 15805- 0091 Sep, Right upper quadrant abdominal pain R10.11 ; Mild persistent asthma without complication J45.30 and BMI 40.0-44.9, adult Z68.41 [place] [address] [place] [id number] [place] [address] 72961- 0428 Aug, Abscess L02.91 and BMI 40.0-44.9, adult Z68.41 [place] [address] [place] [id number] [place] [address] 60488- 9908 Aug, Edema, unspecified type R60.9 [place] [address] [place] [id number] [place] [address] 27480- 7646 Aug, Right upper quadrant abdominal pain R10.11 ; Abnormal EKG R94.31 ; Esophageal abnormality K22.9 and BMI 40.0-44.9, adult Z68.41 [place] [address] 04698- 5980 Aug, Hammer toe of right foot M20.41 and Onychomycosis B35.1 [facility] [place] [address] 84714 -8218 Aug, Myalgia M79.[address] 94765- 8252 Aug, [place] [address] 07874- 4719 Aug, Annual physical exam Z00.00 ; BMI 40.0-44.9, adult Z68.41 ; Mild persistent asthma without complication J45.30 ; Gastroesophageal reflux disease with esophagitis K21.0 ; Acute right-sided thoracic back pain M54.6 ; Trouble breathing R06.89 and Neck pain M54.2 [place] [address] [place] [id number] [place] [address] 16245- 0247 Jul, Mild persistent asthma without complication J45.30 [place] [address] [place] [id number] [place] [address] 71876- 8352 Jul, Edema, unspecified type R60.[address] 99200- 6792 Jun, Edema, unspecified type R60.9 [place] [address] [place] [id number] [place] [address] 73161- 3786 Jun, Moderate persistent asthma with exacerbation J45.41 [place] [address] [place] [id number] [place] [address] 68124- 7351 May, Edema, unspecified type R60.9 [place] [address] [place] [id number] [place] [address] 88221- 1994 May, Moderate persistent asthma with exacerbation J45.41 and Hammer toe of right foot M20.41 [place] [address] 35142- 7059 04 May, 2017 Moderate persistent asthma without complication J45.40 ; Dysfunction of left eustachian tube H69.82 and BMI 45.0-49.9, adult Z68.42 [place] [address] 06161- 1992 Apr, Edema, unspecified type R60.9 [place] [address] [place] [id number] [place] [address] 33485- 3035 Mar, Edema, unspecified type R60.9 [place] [address] [place] [id number] [place] [address] 73615- 7423 Feb, Edema, unspecified type R60.9 [place] [address] [place] [id number] [place] [address] 97211- 4763 Jan, Edema, unspecified type R60.9 [place] [address] [place] [id number] [place] [address] 80554- 8451 Jan, Mild persistent asthma without complication J45.30 [place] [address] [place] [id number] [place] [address] 38340- 5881 Dec, Edema, unspecified type R60.9 [place] [address] 84026- 6230 Nov, Edema, unspecified type R60.9 and Essential hypertension I10 [place] [address] [place] [id number] [place] [address] 44741- 6802 October, Pain in left knee M25.562 [facility] [address] [place] [id number] [place] [address] 45838- 3144 October, Pain in left knee M25.562 [facility] [address] [place] [id number] [place] [address] 54713- 6486 October, [facility] [address] [place] [id number] [place] [address] 32875- 8446 Sep, [facility] [address] [place] [id number] [place] [address] 44685- 0122 Sep, Mild persistent asthma without complication J45.30 [facility] [address] [place] [id number] [place] [address] 73838- 8696 Sep, Pain in left knee M25.562 [facility] [address] [place] [id number] [place] [address] 38561- 6045 Aug, Acute nasopharyngitis J00 and Seasonal allergic rhinitis due to pollen J30.1 [facility] [address] [place] [id number] [place] [address] 49094- 4770 16 Aug, 2016 [facility] [address] [place] [id number] [place] [address] 68711- 4432 Aug, Arthralgia, unspecified joint M25.50 and Pain in left knee M25.562 [facility] [address] [place] [id number] [place] [address] 32153- 5528 Aug, Mild persistent asthma without complication J45.30 [facility] [address] [place] [id number] [place] [address] 80315- 2281 Jul, Mild persistent asthma without complication J45.30 [facility] [address] [place] [id number] [place] [address] 17873- 6226 Jul, Pain in left knee M25.562 [facility] [address] [place] [id number] [place] [address] 12073- 6579 14 Jun, 2016 [facility] [address] [place] [id number] [place] [address] 06187 -2420 Jun, [facility] [address] [address]- 4280 Jun, Mild persistent asthma without complication J45.30 [facility] [address] [address]- 4375 May, [facility] [address] [place] [id number] [place] [address] 74116- 9491 Apr, Restrictive lung disease J98.4 [facility] [address] [place] [id number] [place] [address] 23443- 0770 Apr, [place] [address] [place] [id number] [place] [address] 89198- 6223 Apr, Mild persistent asthma without complication J45.30 [facility] [place] [place] [address] [place] [address] 33212 -8854 Mar, Sore throat J02.9 and Post-nasal drainage R09.82 [facility] [address] [place] [address] 29897- 1718 Mar, [facility] [address] [place] [id number] [place] [address] 88540- 0291 Feb, [facility] [address] [place] [address] 77632- 6135 Feb, Mild persistent asthma without complication J45.30 [facility] [address] [place] [address] 04879- 5968 Feb, Arthralgia, unspecified joint M25.50 [facility] [address] [place] [address] 13779- 5405 Feb, 2016 Edema, unspecified type R60.9 ; Arthralgia, unspecified joint M25.50 ; Mild persistent asthma without complication J45.30 ; Essential hypertension I10 ; Gastroesophageal reflux disease without esophagitis K21.9 and Major depressive disorder with single episode, remission status unspecified F32.9 [facility] [address] [place] [id number] [address]- 7903 Jan, Edema, unspecified type R60.9 ; Essential hypertension I10 ; Mild persistent asthma without complication J45.30 ; Gastroesophageal reflux disease with esophagitis K21.0 ; Arthralgia, unspecified joint M25.50 and Major depressive disorder with single episode, remission status unspecified F32.9 [facility] [address] [address]- 0395 Jan, [facility] [address] [place] [id number] [place] [address] 05826- 7218 Dec, [facility] [address] [place] [id number] [place] [address] 00249- 3512 Dec, [facility] [address] [place] [id number] [place] [address] 66490- 5230 Dec, [facility] [address] [place] [id number] [place] [address] 57153- 4110 Nov, Bilateral edema of lower extremity R60.0 [facility] [address] [place] [id number] [place] [address] 41151- 9575 Nov, Bilateral edema of lower extremity R60.0 [facility] [address] [place] [address] 59774 -4672 Nov, [facility] [address] [address]- 5299 Nov, [facility] [address] [place] [id number] [place] [address] 01089- 7441 October, [facility] [address] [address]- 2904 Sep, [facility] [address] [place] [id number] [place] [address] 66942- 5766 Aug, Acute sinusitis J01.90 [facility] [address] [address]- 2446 Aug, [facility] [address] [place] [id number] [place] [address] 84369- 0103 Aug, [facility] [address] [place] [id number] [place] [address] 99508- 2493 Jul, [facility] [address] [place] [id number] [place] [address] 06240- 0885 Jul, Pharyngitis J02.9 [facility] [address] [place] [id number] [place] [address] 76810- 8287 Jul, [facility] [address] [place] [id number] [place] [address] 90269- 2350 Jun, Pain in left knee M25.562 [facility] [address] [place] [id number] [place] [address] 63282- 5438 Jun, [facility] [address] [place] [id number] [place] [address] 58518 -2490 May, Upper respiratory symptom R09.89 [facility] [address] [place] [id number] [place] [address] 73743- 6787 May, [facility] [address] [place] [id number] [place] [address] 22366- 7869 Apr, Costochondritis M94.0 and Knee pain, left M25.562 [facility] [address] [place] [id number] [place] [address] 02781- 1508 Apr, [facility] [address] [place] [id number] [place] [address] 55554- 2541 Mar, Eustachian tube dysfunction, left H69.82 [facility] [address] [place] [id number] [place] [address] 01715- 3568 Mar, [facility] [address] [place] [id number] [place] [address] 41289- 2478 Mar, [facility] [address] [place] [id number] [place] [address] 30698- 9859 Mar, [facility] [address] [place] [id number] [address]- 5256 Feb, [facility] [address] 5507 Feb, [facility] [address] 9819 Feb, [facility] [address] [address]- 4040 Jan, Asthma 493.90 [facility] [address] 7129 Dec, [facility] [address] [address]- 9874 Dec, [facility] [address] [address]- 2606 Dec, [facility] [address] [address]- 7405 Dec, [facility] [address] [place] [id number] [address]- 6316 Dec, Asthma, unspecified, unspecified status 493.90 [facility] [address] [place] [id number] [address]- 0628 Nov, [facility] [address] [place] [id number] [address]- 7265 Nov, Asthma, unspecified, unspecified status 493.90 [facility] [address] [place] [id number] [address]- 4337 October, Asthma, unspecified, unspecified status 493.90 [facility] [address] 4713 October, [facility] [address] [place] [id number] [address]- 6990 October, Contact dermatitis 692.9 and Candidiasis of skin 112.3 [facility] [place] [facility] [address] [id number] [place] [address]- 8106 14 Sep, 2014 [facility] [place] [facility] [address] [id number] [place] [address]- 7301 13 Sep, 2014 [facility] [place] [facility] [address] [id number] [place] [address]- 4675 Aug, [facility] [place] [facility] [address] [id number] [place] [address]- 0723 Aug, [facility] [place] [facility] [address] [id number] [place] [address]- 3570 Aug, [facility] [place] [facility] [address] [id number] [place] [address]- 9510 Aug, [facility] [place] [facility] [address] [id number] [place] [address]- 2852 Jul, [facility] [place] [facility] [address] [id number] [place] [address]- 1751 Jul, [facility] [place] [facility] [address] [id number] [place] [address]- 0073 Jun, [facility] [place] [facility] [address] [id number] [place] [address]- 0660 Jun, [facility] [place] [facility] [address] [id number] [place] [address]- 1171 May, [facility] [place] [facility] [address] [id number] [place] [address]- 7057 May, [facility] [place] [facility] [address] [id number] [place] [address]- 2387 May, [facility] [place] [facility] [address] [id number] [place] [address]- 3989 May, [facility] [place] [facility] [address] [id number] [place] [address]- 7170 May, [facility] [place] [facility] [address] [id number] [place] [address]- 5030 May, [facility] [place] [facility] [address] [id number] [place] [address]- 6896 Apr, [facility] [place] [facility] [address] [id number] [place] [address]- 8055 Apr, [facility] [place] [facility] [address] [id number] [place] [address]- 4041 15 Feb, 2014 [facility] [place] [facility] [address] [id number] [place] [address]- 9366 15 Feb, 2014 [facility] [place] [facility] [address] [id number] [place] [address]- 9930 10 Feb, 2014 [facility] [place] [facility] [address] [id number] [place] [address]- 4214 Feb, [facility] [place] [facility] [address] [id number] [place] [address]- 6475 05 Feb, 2014 [facility] [place] [facility] [address] [id number] [place] [address]- 0969 05 Feb, 2014 [facility] [place] [facility] [address] [id number] [place] [address]- 8357 Jan, [facility] [place] [facility] [address] [id number] [place] [address]- 2214 Jan, [facility] [place] [facility] [address] [id number] [place] [address]- 1517 Jan, [facility] [place] [facility] [address] [id number] [address]- 8527 Jan, [facility] [place] [facility] [address] [id number] [place] [address]- 1030 Jan, [facility] [place] [facility] [address] [id number] [place] [address]- 0608 Jan, [facility] [place] [facility] [address] [id number] [place] [address]- 5929 Dec, [facility] [place] [facility] [address] [id number] [place] [address]- 5028 Dec, [facility] [place] [facility] [address] [id number] [place] [address]- 0263 Nov, [facility] [place] [facility] [address] [id number] [place] [address]- 4196 Nov, [facility] [place] [facility] [address] [id number] [place] [address]- 0845 Nov, [facility] [place] [facility] [address] [id number] [place] [address]- 8745 Nov, [facility] [place] [facility] [address] [id number] [place] [address]- 6194 Nov, [facility] [place] [facility] [address] [id number] [place] [address]- 9992 Nov, [facility] [place] [facility] [address] [id number] [place] [address]- 8852 Nov, [facility] [place] [facility] [address] [id number] [place] [address]- 9131 Nov, [facility] [place] [facility] [address] [id number] [place] [address]- 1832 Nov, [facility] [place] [facility] [address] [id number] [place] [address]- 7283 Nov, [facility] [place] [facility] [address] [id number] [place] [address]- 1650 Nov, [facility] [place] [facility] [address] [id number] [place] [address]- 2952 Nov, [facility] [place] [facility] [address] [id number] [place] [address]- 8444 Nov, [facility] [place] [facility] [address] [id number] [place] [address]- 5519 October, [facility] [place] [facility] [address] [id number] [place] [address]- 5005 October, [facility] [place] [facility] [address] [id number] [place] [address]- 4792 October, [facility] [place] [facility] [address] [id number] [place] [address]- 3588 October, [facility] [place] [facility] [address] [id number] [place] [address]- 6748 Sep, [facility] [place] [facility] [address] [id number] [place] [address]- 6605 Sep, [facility] [place] [facility] [address] [id number] [place] [address]- 1783 Sep, [facility] [place] [facility] [address] [id number] [place] [address]- 4783 Sep, [facility] [place] [facility] [address] [id number] [place] [address]- 2478 Aug, [facility] [place] [facility] [address] [id number] [place] [address]- 0396 Aug, [facility] [place] [facility] [address] [id number] [place] [address]- 2958 Jul, [facility] [place] [facility] [address] [id number] [place] [address]- 4477 Jul, [facility] [place] [facility] [address] [id number] [place] [address]- 3313 Jun, [facility] [place] [facility] [address] [id number], [place] [address]- 1226 Jun, [facility] [place] [facility] [address] [id number] [place] [address]- 4750 Mar, [facility] [place] [facility] [address] [id number] [place] [address]- 9398 Mar, [facility] [place] [facility] [address] [id number], [place] [address]- 7591 Mar, [facility] [place] [facility] [address] [id number], [place] [address]- 9838 Mar, [facility] [address] [id number] [place] [address]- 7142 Mar, [facility] [address] [id number] [place] [address]- 8786 Feb, [facility] [address] [facility] [id number] [place] [address]- 4731 Feb, [facility] [address] [id number] [place] [address]- 0998 Dec, [facility] [address] [id number] [place] [address]- 8687 Nov, [facility] [address] [id number] [place] [address]- 7258 October, [facility] [id number] [place] [address]- 9855 Sep, [facility] [address] [id number] [place] [address] Sep, [facility] [address] [id number] [place] [address] 29 Aug, 2012 [facility] [address] [facility] [id number] [place] [address] Aug, [facility] [address] [id number], [place] [address] Aug, [facility] [place] [facility] [address] [id number], [place] [address] Aug, [facility] [place] [facility] [address] [id number] [place] [address] 14 Jun, 2012 [facility] [place] [facility] [address] [facility] [id number] [place] [address] Jun, [facility] [place] [facility] [address] [facility] [id number] [place] [address] Jun, [facility] [place] [facility] [address] [id number] [place] [address] May, [facility] [place] [facility] [address] [id number] [place] [address] May, [facility] [place] [facility] [address] [id number] [place] [address] Apr, [facility] [place] [facility] [address] [id number] [place] [address] Apr, [facility] [place] [facility] [address] [id number] [place] [address] Apr, [facility] [place] [facility] [address] [id number] [place] [address] Apr, [facility] [place] [facility] [address] [id number] [place] [address] Apr, [facility] [place] [facility] [address] [id number] [place] [address] Apr, [facility] [place] [facility] [address] [id number] [place] [address] Apr, [facility] [place] [facility] [address] [id number] [place] [address] 31 Mar, 2012 [facility] [place] [facility] [address] [id number] [place] [address] 31 Mar, 2012 [facility] [place] [facility] [address] [id number] [place] [address] 18 Feb, 2012 [facility] [place] [facility] [address] [id number] [place] [address] 17 Feb, 2012 [facility] [place] [facility] [address] [id number] [place] [address] 13 Feb, 2012 [facility] [place] [facility] [address] [id number] [place] [address] 15 Jan, 2012 [facility] [place] [facility] [address] [id number] [place] [address] Jan, [facility] [place] [facility] [address] [id number] [place] [address] Jan, [facility] [place] [facility] [address] [id number] [place] [address] Jan, [facility] [place] [facility] [address] [id number] [place] [address] Dec, [facility] [place] [facility] [address] [id number] [place] [address] Dec, [facility] [place] [facility] [address] [id number] [place] [address] Dec, [facility] [place] [facility] [address] [id number] [place] [address] Dec, [facility] [place] [facility] [address] [id number] [place] [address] Dec, [facility] [place] [facility] [address] [id number] [place] [address] Nov, [facility] [place] [facility] [address] [id number] [place] [address] Nov, [facility] [place] [facility] [address] [id number] [place] [address] Nov, [facility] [place] [facility] [address] [id number] [place] [address] Nov, [facility] [place] [facility] [address] [id number] [place] [address] October, [facility] [place] [facility] [address] [id number] [place] [address] October, [facility] [place] [facility] [address] [id number] [place] [address] October, [facility] [place] [facility] [address] [id number] [place] [address] October, [facility] [place] [facility] [address] [id number] [place] [address] October, [facility] [address] [id number] [place] [address] 25 Sep, 2011 [facility] [place] [facility] [address] [id number] [place] [address] Sep, [facility] [address] [id number] [place] [address] Sep, [facility] [place] [facility] [address] [id number] [place] [address] Sep, [facility] [place] [facility] [address] [id number] [place] [address] Sep, [facility] [place] [facility] [address] [id number] [place] [address] 29 Aug, 2011 [facility] [place] [facility] [address] [id number] [place] [address] 28 Aug, 2011 [facility] [place] [facility] [address] [id number] [place] [address] 27 Aug, 2011 [facility] [place] [facility] [address] [id number] [place] [address] 26 Aug, 2011 [facility] [place] [facility] [address] [id number] [place] [address] 23 Aug, 2011 [facility] [place] [facility] [address] [id number] [place] [address] 20 Aug, 2011 [facility] [place] [facility] [address] [id number] [place] [address] 19 Aug, 2011 [facility] [place] [facility] [address] [id number] [place] [address] 17 Aug, 2011 [facility] [place] [facility] [address] [id number] [place] [address] 18 Jun, 2011 [facility] [place] [facility] [address] [id number] [place] [address] Jun, [facility] [place] [facility] [address] [id number] [place] [address] Jun, [facility] [address] [id number] [place] [address] Jun, [facility] [address] [id number] [place] [address] Jun, [facility] [address] [id number] [place] [address] May, [facility] [address] [id number] [place] [address] Apr, [facility] [address] [id number] [place] [address] October, [facility] [address] [id number] [place] [address] May, [facility] [address] [id number] [place] [address] May, [facility] [address] [id number] [place] [address] Apr, [facility] [address] [id number] [place] [address] Jan, [facility] [address] [id number] [place] [address] Dec, [facility] [address] [id number] [place] [address] Sep, [facility] [address] [id number] [place] [address] Sep, [facility] [place] [facility] [address] [id number] [place] [address] 16 Jul, 2009 [facility] [place] [facility] [address] [id number] [place] [address] May, [facility] [address] [id number] [place] [address] Jan, IMMUNIZATIONS No Known Immunizations SOCIAL HISTORY Never Assessed REASON FOR VISIT Controlled Med Refill PLAN OF CARE VITAL SIGNS MEDICATIONS Medication [...] History Cholecystectomy 2013 Surgical History echocardiagram 01/2016 Surgical History fluid drawn from abscess on right side 09/2017 Hospitalization History , surgeries 1989
--- OUTSIDE RECORDS SUMMARY | 2018-05-04 07:20 | XMS REPORT ---
Author Author JENNIFER CANCINO Organization [facility] Address [address] [place] [address] Care Team Providers Care Kaitara Taraka Name Role Phone JENNIFER CANCINO Unavailable PROBLEMS Type Condition ICD9-CM Code ZPV64-OG Code Onset Dates Condition Status SNOMED Code Problem Mild persistent asthma without complication J45.30 Active 584129793 Problem Edema, unspecified type R60.9 Active 077693110 Problem Gastroesophageal reflux disease with esophagitis K21.0 Active 394870120 Problem Essential hypertension I10 Active 97052578 Problem Moderate persistent asthma with exacerbation J45.41 Active 112862741 Problem Other chronic pain G89.29 Active 14317269 Problem Esophageal abnormality K22.9 Active 12001669 Problem Hammer toe of right foot M20.41 Active 171562825 Problem Abnormal EKG R94.31 Active 730668066 Problem Right upper quadrant abdominal pain R10.11 Active 472266629 ALLERGIES No Information ENCOUNTERS Encounter Location Date Diagnosis [place] [id number] [place] [address] 08723- 6778 Apr, BMI 40.0-44.9, adult Z68.41 [place] [address] [place] [id number] [place] [address] 83094- 8370 Mar, BMI 40.0-44.9, adult Z68.41 [facility] [id number] [place] [address] 41847- 4041 Feb, Mild persistent asthma without complication J45.30 [facility] [address] [place] [id number] [place] [address] 20293- 9542 Feb, Other chronic pain G89.29 [facility] [address] [address] [id number] [place] [address] 39629- 5931 Feb, Other chronic pain G89.29 and BMI 40.0-44.9, adult Z68.41 [place] [address] [place] [id number] [place] [address] 87131- 9185 Dec, BMI 40.0-44.9, adult Z68.41 ; Other chronic pain G89.29 and Pain in left hip M25.552 [place] [address] [place] [id number] [place] [address] 82221- 3919 Nov, Abscess L02.91 [place] [address] 85067- 5600 Nov, Moderate persistent asthma with exacerbation J45.[address] 14577- 5932 Nov, Low back pain M54.5 and Other chronic pain G89.29 [place] [address] [place] [id number] [place] [address] 04585- 8831 October, Abscess L02.91 [place] [address] [place] [id number] [place] [address] 15259- 8316 October, Cutaneous abscess of back excluding buttocks L02.212 and BMI 40.0-44.9, adult Z68.41 [place] [address] [place] [id number] [place] [address] 71801- 2138 October, [place] [address] [place] [id number] [place] [address] 49121- 9490 October, [place] [address] [place] [id number] [place] [address] 57731- 2904 Sep, [place] [address] [place] [id number] [place] [address] 77195- 8553 Sep, Abscess L02.91 [place] [address] [place] [id number] [place] [address] 06673- 8469 Sep, Right upper quadrant abdominal pain R10.11 ; Mild persistent asthma without complication J45.30 and BMI 40.0-44.9, adult Z68.41 [place] [address] [place] [id number] [place] [address] 70786- 8067 Aug, Abscess L02.91 and BMI 40.0-44.9, adult Z68.41 [place] [address] [place] [id number]- 3196 Aug, Edema, unspecified type R60.9 [place] [address] 96382- 0019 Aug, Right upper quadrant abdominal pain R10.11 ; Abnormal EKG R94.31 ; Esophageal abnormality K22.9 and BMI 40.0-44.9, adult Z68.[address] 17934- 9363 Aug, Hammer toe of right foot M20.41 and Onychomycosis B35.1 [facility] [address] 41457 -7565 Aug, Myalgia M79.1 [place] [address] [place] [id number] [place] [address] 97132- 5500 Aug, [address] 93447- 3419 Aug, Annual physical exam Z00.00 ; BMI 40.0-44.9, adult Z68.41 ; Mild persistent asthma without complication J45.30 ; Gastroesophageal reflux disease with esophagitis K21.0 ; Acute right-sided thoracic back pain M54.6 ; Trouble breathing R06.89 and Neck pain M54.2 [place] [address] [place] [id number] [place] [address] 98451- 6947 Jul, Mild persistent asthma without complication J45.[address] 85533- 3133 Jul, Edema, unspecified type R60.[address] 05929- 2097 Jun, Edema, unspecified type R60.9 [place] [address] [place] [id number] [place] [address] 16691- 8029 Jun, Moderate persistent asthma with exacerbation J45.41 [place] [address] [place] [id number] [place] [address] 92364- 6214 May, Edema, unspecified type R60.9 [place] [address] 78105- 5272 May, Moderate persistent asthma with exacerbation J45.41 and Hammer toe of right foot M20.41 [place] [address] 04497- 4536 May, Moderate persistent asthma without complication J45.40 ; Dysfunction of left eustachian tube H69.82 and BMI 45.0-49.9, adult Z68.42 [place] [address] 58956- 8387 Apr, Edema, unspecified type R60.9 [place] [address] 03937- 2619 Mar, Edema, unspecified type R60.9 [place] [address] [place] [id number] [place] [address] 54664- 8551 Feb, Edema, unspecified type R60.9 [place] [address] [place] [id number] [place] [address] 79665- 6796 Jan, Edema, unspecified type R60.9 [place] [address] [place] [id number] [place] [address] 61080- 1335 Jan, Mild persistent asthma without complication J45.30 [place] [address] 65514- 6499 Dec, Edema, unspecified type R60.9 [place] [address] 80633- 0083 Nov, Edema, unspecified type R60.9 and Essential hypertension I10 [facility] [address] [place] [id number] [place] [address] 70489- 1112 October, Pain in left knee M25.562 [facility] [address] [place] [id number] [place] [address] 86733- 1416 October, Pain in left knee M25.562 [facility] [address] [place] [id number] [place] [address] 20648- 8797 October, [facility] [address] [place] [id number] [place] [address] 80035- 5001 Sep, [place] [address] 94317- 7708 17 Sep, 2016 Mild persistent asthma without complication J45.30 [place] [address] [place] [id number] [place] [address] 56983- 9229 Sep, Pain in left knee M25.562 [place] [address] [place] [id number] [place] [address] 89109- 7125 Aug, Acute nasopharyngitis J00 and Seasonal allergic rhinitis due to pollen J30.1 [place] [address] [place] [id number] [place] [address] 57386- 0340 16 Aug, 2016 [place] [address] [place] [id number] [place] [address] 46144- 0332 Aug, Arthralgia, unspecified joint M25.50 and Pain in left knee M25.562 [facility] [address] [place] [id number] [place] [address] 81776- 8192 Aug, Mild persistent asthma without complication J45.30 [place] [address] [place] [id number] [place] [address] 08300- 3006 28 Jul, 2016 Mild persistent asthma without complication J45.30 [place] [address] [place] [id number] [place] [address] 79012- 7825 13 Jul, 2016 Pain in left knee M25.562 [facility] [address] [address]- 7719 14 Jun, 2016 [facility] [address] [place] [address] 54483 -0316 Jun, [facility] [address] [place] [id number] [place] [address] 71210- 8136 Jun, Mild persistent asthma without complication J45.30 [facility] [address] [place] [id number] [place] [address] 72988- 7772 May, [facility] [address] [place] [id number] [place] [address] 78945- 8142 Apr, Restrictive lung disease J98.4 [place] [address] [place] [id number] [place] [address] 40349- 4678 Apr, [facility] [address] [place] [id number] [place] [address] 99092- 1951 Apr, Mild persistent asthma without complication J45.30 [facility] [address] [place] [address] 83312 -1247 Mar, Sore throat J02.9 and Post-nasal drainage R09.82 [facility] [address] [place] [address] 29614- 1418 Mar, [facility] [address] [place] [id number] [place] [address] 50564- 3336 Feb, [facility] [address] [place] [id number] [place] [address] 54664- 8898 Feb, Mild persistent asthma without complication J45.30 [place] [address] [place] [address] 59480- 3475 Feb, Arthralgia, unspecified joint M25.50 [facility] [address] [place] [address] 69262- 8461 Feb, Edema, unspecified type R60.9 ; Arthralgia, unspecified joint M25.50 ; Mild persistent asthma without complication J45.30 ; Essential hypertension I10 ; Gastroesophageal reflux disease without esophagitis K21.9 and Major depressive disorder with single episode, remission status unspecified F32.9 [facility] [address] [place] [id number] [place] [address] 46328- 4966 Jan, Edema, unspecified type R60.9 ; Essential hypertension I10 ; Mild persistent asthma without complication J45.30 ; Gastroesophageal reflux disease with esophagitis K21.0 ; Arthralgia, unspecified joint M25.50 and Major depressive disorder with single episode, remission status unspecified F32.9 [facility] [address] [place] [id number] [address]- 3456 Jan, [facility] [address] [place] [id number] [place] [address] 83624- 0456 Dec, [facility] [address] [place] [id number] [place] [address] 09402- 5092 Dec, [facility] [address] [place] [id number] [place] [address] 85357- 9667 Dec, [facility] [address] [place] [id number] [place] [address] 16617- 6902 Nov, Bilateral edema of lower extremity R60.0 [facility] [address] [address]- 0286 Nov, Bilateral edema of lower extremity R60.0 [facility] [address] [address] -9076 Nov, [facility] [address] [place] [id number] [address] 2546 Nov, [facility] [address] [place] [id number] [place] [address] 48405- 0166 October, [facility] [address] [address]- 2546 Sep, [facility] [address] [place] [address] 00529- 3282 Aug, Acute sinusitis J01.90 [facility] [address] [place] [address] 76363- 2928 Aug, [facility] [address] [place] [id number] [place] [address] 09605- 8333 Aug, [facility] [address] [place] [id number] [place] [address] 94344- 0791 Jul, [facility] [address] [place] [id number] [place] [address] 61882- 0711 Jul, Pharyngitis J02.9 [facility] [address] [place] [id number] [place] [address] 54969- 9023 Jul, [facility] [address] [place] [id number] [place] [address] 63825- 3379 Jun, Pain in left knee M25.562 [facility] [address] [place] [id number] [place] [address] 48282- 6635 Jun, [facility] [address] [place] [id number] [place] [address] 56184 -5333 May, Upper respiratory symptom R09.89 [facility] [address] [place] [id number] [place] [address] 43363- 6180 May, [facility] [address] [place] [id number] [place] [address] 93739- 6642 Apr, Costochondritis M94.0 and Knee pain, left M25.562 [facility] [address] [place] [id number] [place] [address] 18701- 0944 Apr, [facility] [address] [place] [id number] [place] [address] 58353- 0767 Mar, Eustachian tube dysfunction, left H69.82 [facility] [address] [place] [id number] [place] [address] 70068- 4650 Mar, [facility] [address] [place] [id number] [place] [address] 40033- 2546 Mar, [facility] [address] [place] [id number] [address]- 7467 Mar, [facility] [address] [facility] [id number] [address]- 4846 Feb, [facility] [address] [place] [id number] [address]- 9911 Feb, [facility] [address] [place] [id number] [address]- 7692 Feb, [facility] [address] [place] [id number] [address]- 9135 Jan, Asthma 493.90 [facility] [address] [address]- 4653 Dec, [facility] [address] [address]- 3893 Dec, [facility] [address] [address]- 4686 Dec, [facility] [address] 6075 Dec, [facility] [address] [place] [id number] 8335 Dec, Asthma, unspecified, unspecified status 493.90 [facility] [address] [place] [id number] [address]- 8129 Nov, [facility] [address] [place] [id number] [address]- 2339 Nov, Asthma, unspecified, unspecified status 493.90 [facility] [address] [place] [id number] [address]- 7216 October, Asthma, unspecified, unspecified status 493.90 [facility] [address] [place] [id number] 8108 October, [facility] [address] [facility] [id number] [address]- 4259 October, Contact dermatitis 692.9 and Candidiasis of skin 112.3 [facility] [address] [facility] [id number] [place] [address]- 2170 Sep, [facility] [address] [place] [id number] [place] [address]- 2787 Sep, [facility] [address] [facility] [id number], [place] [address]- 4089 Aug, [facility] [address] [facility] [id number] [place] [address]- 9818 Aug, [facility] [address] [place] [id number] [place] [address]- 0115 Aug, [facility] [address] [place] [id number] [place] [address]- 1553 Aug, [facility] [id number] [address]- 5945 Jul, [facility] [address] [place] [id number] [place] [address]- 0260 Jul, [facility] [address] [place] [id number] [place] [address]- 6561 Jun, [facility] [id number] [address]- 5153 Jun, [facility] [id number] [address]- 0073 May, [facility] [address] [facility] [id number] [place] 3986 May, [facility] [address] [facility] [id number] [place] 6294 May, [facility] [address] [place] [id number] 5746 May, [facility] [address] [facility] [id number] [place] [address]- 4130 May, [facility] [place] [facility] [address] [id number] [place] [address]- 3926 May, [facility] [place] [facility] [address] [id number] [place] [address]- 5747 Apr, [facility] [place] [facility] [address] [id number] [place] [address]- 1746 Apr, [facility] [place] [facility] [address] [id number] [place] [address]- 9712 15 Feb, 2014 [facility] [place] [facility] [address] [id number] [place] [address]- 9613 15 Feb, 2014 [facility] [place] [facility] [address] [id number] [place] [address]- 6557 Feb, [facility] [place] [facility] [address] [id number] [place] [address]- 5820 Feb, [facility] [place] [facility] [address] [id number] [place] [address]- 1257 05 Feb, 2014 [facility] [place] [facility] [address] [id number] [place] [address]- 3310 05 Feb, 2014 [facility] [place] [facility] [address] [id number] [place] [address]- 9312 Jan, [facility] [place] [facility] [address] [id number] [place] [address]- 8936 Jan, [facility] [place] [facility] [address] [id number] [place] [address]- 1052 Jan, [facility] [place] [facility] [address] [id number] [place] [address]- 5780 Jan, [facility] [place] [facility] [address] [id number] [place] [address]- 0726 Jan, [facility] [place] [facility] [address] [id number] [place] [address]- 8877 Jan, [facility] [place] [facility] [address] [id number] [place] [address]- 5184 Dec, [facility] [place] [facility] [address] [id number] [place] [address]- 7445 Dec, [facility] [place] [facility] [address] [id number] [place] [address]- 9744 Nov, [facility] [place] [facility] [address] [id number] [place] [address]- 5689 Nov, [facility] [place] [facility] [address] [id number] [place] [address]- 4598 Nov, [facility] [place] [facility] [address] [id number] [place] [address]- 4103 Nov, [facility] [place] [facility] [address] [id number] [place] [address]- 3976 Nov, [facility] [place] [facility] [address] [id number] [place] [address]- 1530 Nov, [facility] [place] [facility] [address] [id number] [place] [address]- 4468 Nov, [facility] [place] [facility] [address] [id number] [place] [address]- 3052 Nov, [facility] [place] [facility] [address] [id number], [place] [address]- 6930 Nov, [facility] [place] [facility] [address] [id number], [place] [address]- 2982 Nov, [facility] [place] [facility] [address] [id number] [place] [address]- 8010 Nov, [facility] [place] [facility] [address] [id number] [place] [address]- 8731 Nov, [facility] [place] [facility] [address] [id number] [place] [address]- 9324 Nov, [facility] [place] [facility] [address] [id number], [place] [address]- 5542 October, [facility] [place] [facility] [address] [id number] [place] [address]- 0497 October, [facility] [place] [facility] [address] [id number] [place] [address]- 4562 October, [facility] [place] [facility] [address] [facility] [id number] [place] [address]- 2511 October, [facility] [place] [facility] [address] [id number] [place] [address]- 6982 Sep, [facility] [place] [facility] [address] [id number] [place] [address]- 8650 Sep, [facility] [place] [facility] [address] [facility] [id number] [place] [address]- 5383 Sep, [facility] [place] [facility] [address] [id number] [place] [address]- 1125 Sep, [facility] [place] [facility] [address] [facility] [id number] [place] [address]- 0969 Aug, [facility] [place] [facility] [address] [facility] [id number] [place] [address]- 2199 Aug, [facility] [place] [facility] [address] [facility] [id number] [place] [address]- 0458 Jul, [facility] [place] [facility] [address] [facility] [id number] [place] [address]- 1462 Jul, [facility] [place] [facility] [address] [facility] [id number], [place] [address]- 5835 Jun, [facility] [place] [facility] [address] [id number] [place] [address] Jun, [facility] [place] [facility] [address] [facility] [id number] [place] [address] Mar, [facility] [place] [facility] [address] [facility] [id number], [place] [address] Mar, [facility] [place] [facility] [address] [id number] [place] [address] Mar, [facility] [address] [id number] [place] [address] Mar, [facility] [place] [facility] [address] [id number] [place] [address] Mar, [facility] [place] [facility] [address] [id number] [place] [address] Feb, [facility] [place] [facility] [address] [id number] [place] [address] Feb, [facility] [place] [facility] [address] [id number] [place] [address] Dec, [facility] [address] [id number] [place] [address] Nov, [facility] [address] [id number] [place] [address] October, [facility] [address] [id number] [place] [address] Sep, [facility] [place] [facility] [address] [id number] [place] [address] Sep, [facility] [place] [facility] [address] [id number] [place] [address] Aug, [facility] [place] [facility] [address] [id number] [place] [address] Aug, [facility] [place] [facility] [address] [id number] [place] [address] Aug, [facility] [place] [facility] [address] [id number] [place] [address] Aug, [facility] [place] [facility] [address] [id number] [place] [address] Jun, [facility] [place] [facility] [address] [id number] [place] [address] Jun, [facility] [place] [facility] [address] [id number] [place] [address] Jun, [facility] [place] [facility] [address] [id number] [place] [address] May, [facility] [place] [facility] [address] [id number] [place] [address] May, [facility] [place] [facility] [address] [id number] [place] [address] Apr, [facility] [place] [facility] [address] [id number] [place] [address] Apr, [facility] [place] [facility] [address] [id number] [place] [address] Apr, [facility] [place] [facility] [address] [id number] [place] [address] Apr, [facility] [place] [facility] [address] [id number] [place] [address] Apr, [facility] [place] [facility] [address] [id number] [place] [address] Apr, [facility] [place] [facility] [address] [id number] [place] [address] Apr, [facility] [place] [facility] [address] [id number], [place] [address] 31 Mar, 2012 [facility] [place] [facility] [address] [id number], [place] [address] 31 Mar, 2012 [facility] [place] [facility] [address] [id number] [place] [address] 18 Feb, 2012 [facility] [place] [facility] [address] [id number] [place] [address] 17 Sep2011 [facility] [place] [facility] [address] [id number] [place] [address] 13 Feb, 2012 [facility] [place] [facility] [address] [id number] [place] [address] 15 Jan, 2012 [facility] [address] [id number] [place] [address] Jan, [facility] [place] [facility] [address] [id number] [place] [address] Jan, [facility] [address] [id number] [place] [address] Jan, [facility] [address] [id number] [place] [address] Dec, [facility] [address] [id number] [place] [address] Dec, [facility] [address] [id number] [place] [address] Dec, [facility] [address] [id number] [place] [address] Dec, [facility] [address] [id number] [place] [address] Dec, [facility] [address] [id number] [place] [address] Nov, [facility] [address] [id number] [place] [address] Nov, [facility] [place] [facility] [address] [id number] [place] [address] Nov, [facility] [place] [facility] [address] [id number] [place] [address] Nov, [facility] [place] [facility] [address] [id number] [place] [address] October, [facility] [place] [facility] [address] [id number] [place] [address] October, [facility] [place] [facility] [address] [id number] [place] [address] October, [facility] [place] [facility] [address] [id number] [place] [address] October, [facility] [place] [facility] [address] [id number] [place] [address] October, [facility] [address] [id number] [place] [address] Sep, [facility] [place] [facility] [address] [id number] [place] [address] Sep, [facility] [address] [id number] [place] [address] Sep, [facility] [place] [facility] [address] [id number] [place] [address] Sep, [facility] [address] [id number] [place] [address] Sep, [facility] [address] [id number] [place] [address] 29 Aug, 2011 [facility] [place] [facility] [address] [id number] [place] [address] 28 Aug, 2011 [facility] [place] [facility] [address] [id number] [place] [address] 27 Aug, 2011 [facility] [place] [facility] [address] [id number] [place] [address] Aug, [facility] [place] [facility] [address] [id number] [place] [address] 23 Aug, 2011 [facility] [place] [facility] [address] [id number] [place] [address] 20 Aug, 2011 [facility] [place] [facility] [address] [id number] [place] [address] 19 Aug, 2011 [facility] [place] [facility] [address] [id number] [place] [address] 17 Aug, 2011 [facility] [place] [facility] [address] [id number], [place] [address] Jun, [facility] [address] [id number] [place] [address] Jun, [facility] [place] [facility] [address] [id number] [place] [address] Jun, [facility] [address] [id number] [place] [address] Jun, [facility] [place] [facility] [address] [id number] [place] [address] Jun, [facility] [address] [id number] [place] [address] May, [facility] [place] [facility] [address] [id number] [place] [address] Apr, [facility] [address] [id number] [place] [address] October, [facility] [place] [facility] [address] [id number] [place] [address] May, [facility] [address] [id number] [place] [address] May, [facility] [place] [facility] [address] [id number] [place] [address] Apr, [facility] [place] [facility] [address] [id number] [place] [address] Jan, [facility] [place] [facility] [address] [id number] [place] [address] 14 Dec, 2009 [facility] [place] [facility] [address] [id number] [place] [address] 12 Sep, 2009 [facility] [place] [facility] [address] [id number] [place] [address] Sep, [facility] [place] [facility] [address] [id number] [place] [address] 16 Jul, 2009 [facility] [place] [facility] [address] [facility] [id number] [place] [address] May, [facility] [address] [facility] [id number] [place] [address] Jan, IMMUNIZATIONS No Known Immunizations SOCIAL HISTORY [...]
--- OUTSIDE RECORDS SUMMARY | 2018-05-04 07:21 | XMS REPORT ---
Author Author JENNIFER CANCINO Organization [facility] Address [address] [place] [address] Care Team Providers Care Debt Counselor Name Role Phone JENNIFER CANCINO Unavailable PROBLEMS Type Condition ICD9-CM Code [id number] Code Onset Dates Condition Status SNOMED Code Problem Mild persistent asthma without complication J45.30 Active 466137194 Problem Edema, unspecified type R60.9 Active 720833421 Problem Gastroesophageal reflux disease with esophagitis K21.0 Active 239753282 Problem Essential hypertension I10 Active 93414709 Problem Moderate persistent asthma with exacerbation J45.41 Active 449768796 Problem Other chronic pain G89.29 Active 98691014 Problem Esophageal abnormality K22.9 Active 47088546 Problem Hammer toe of right foot M20.41 Active 497337163 Problem Abnormal EKG R94.31 Active 314514751 Problem Right upper quadrant abdominal pain R10.11 Active 539415659 ALLERGIES Substance Reaction Event Type Date Status Naprosyn itching Drug Allergy Feb, Active Micardis Unknown Drug Allergy Feb, Active Hydrocodone Bitartrate itching Drug Allergy Feb, Active Celebrex swelling Drug Allergy Feb, Active Bactrim spots/rash Drug Allergy Feb, Active Doxycycline scalp rash Drug Allergy Feb, Active ENCOUNTERS Encounter Location Date Diagnosis [facility] [id number] [place] [address] 23214- 2939 Feb, Mild persistent asthma without complication J45.30 [facility] [id number] [place] [address] 62803- 7900 Feb, Other chronic pain G89.29 [facility] [id number] [place] [address] 09232- 6775 Feb, Other chronic pain G89.29 and BMI 40.0-44.9, adult Z68.41 [facility] [id number] [address] 7889 Dec, BMI 40.0-44.9, adult Z68.41 ; Other chronic pain G89.29 and Pain in left hip M25.552 [facility] [id number] [place] [address] 45629- 5370 Nov, Abscess L02.91 [facility] [id number] [place] [address] 31089- 6820 Nov, Moderate persistent asthma with exacerbation J45.41 [facility] [id number] [place] [address] 13024- 9128 Nov, Low back pain M54.5 and Other chronic pain G89.29 [facility] [id number] [place] [address] 08081- 6104 October, Abscess L02.91 [facility] [id number] [place] [address] 81828- 5554 October, Cutaneous abscess of back excluding buttocks L02.212 and BMI 40.0-44.9, adult Z68.41 [facility] [id number] [place] [address] 90983- 4469 October, [facility] [id number] [place] [address] 30214- 1613 October, [facility] [id number] [place] [address] 46692- 2847 Sep, [facility] [id number] [place] [address] 96092- 3988 Sep, Abscess L02.91 [facility] [id number] [place] [address] 90977- 1376 Sep, Right upper quadrant abdominal pain R10.11 ; Mild persistent asthma without complication J45.30 and BMI 40.0-44.9, adult Z68.41 [facility] [id number] [place] [address] 81702- 2693 Aug, Abscess L02.91 and BMI 40.0-44.9, adult Z68.41 [facility] [id number] [place] [address] 76745- 3148 Aug, Edema, unspecified type R60.9 [facility] [id number] [place] [address] 03678- 0163 Aug, Right upper quadrant abdominal pain R10.11 ; Abnormal EKG R94.31 ; Esophageal abnormality K22.9 and BMI 40.0-44.9, adult Z68.41 [facility] [address] 17143- 2760 Aug, Hammer toe of right foot M20.41 and Onychomycosis B35.1 [facility] [id number] [place] [address] 35900 -6391 Aug, Myalgia M79.1 [facility] [id number] [place] [address] 68264- 6645 Aug, [facility] [id number] [place] [address] 98830- 5985 Aug, Annual physical exam Z00.00 ; BMI 40.0-44.9, adult Z68.41 ; Mild persistent asthma without complication J45.30 ; Gastroesophageal reflux disease with esophagitis K21.0 ; Acute right-sided thoracic back pain M54.6 ; Trouble breathing R06.89 and Neck pain M54.2 [facility] [id number] [place] [address] 66745- 1854 Jul, Mild persistent asthma without complication J45.[address] 77194- 1697 Jul, Edema, unspecified type R60.9 [facility] [id number] [place] [address] 46611- 2669 Jun, Edema, unspecified type R60.9 [facility] [id number] [place] [address] 53707- 3867 Jun, Moderate persistent asthma with exacerbation J45.41 [facility] [address] 76932- 1052 May, Edema, unspecified type R60.9 [facility] [id number] [place] [address] 12899- 3895 May, Moderate persistent asthma with exacerbation J45.41 and Hammer toe of right foot M20.41 [facility] [address] 60109- 2070 04 May, 2017 Moderate persistent asthma without complication J45.40 ; Dysfunction of left eustachian tube H69.82 and BMI 45.0-49.9, adult Z68.42 [facility] [address] 80141- 4285 Apr, Edema, unspecified type R60.9 [facility] [address] 91550- 7330 Mar, Edema, unspecified type R60.9 [facility] [address] 37011- 1272 Feb, Edema, unspecified type R60.9 [facility] [id number] [place] [address] 60072- 9912 Jan, Edema, unspecified type R60.9 [facility] [id number] [place] [address] 02701- 5445 Jan, Mild persistent asthma without complication J45.30 [facility] [id number] [place] [address] 39883- 7197 Dec, Edema, unspecified type R60.9 [facility] [id number] [place] [address] 54606- 3377 Nov, Edema, unspecified type R60.9 and Essential hypertension I10 [facility] [address] [place] [address]- 1782 October, Pain in left knee M25.562 [facility] [id number] [place] [address] 38385- 0901 October, Pain in left knee M25.562 [facility] [id number] [place] [address] 61841- 3089 October, [facility] [id number] [place] [address] 70651- 7915 Sep, [facility] [id number] [place] [address] 77701- 6252 Sep, Mild persistent asthma without complication J45.30 [facility] [id number] [place] [address] 56195- 5606 Sep, Pain in left knee M25.562 [facility] [id number] [place] [address] 61769- 1979 Aug, Acute nasopharyngitis J00 and Seasonal allergic rhinitis due to pollen J30.1 [facility] [id number] [place] [address] 25092- 6295 16 Aug, 2016 [facility] [id number] [place] [address] 01675- 4478 Aug, Arthralgia, unspecified joint M25.50 and Pain in left knee M25.562 [facility] [place] [id number] [place] [address] 72542- 7448 Aug, Mild persistent asthma without complication J45.30 [facility] [id number] [place] [address] 55550- 7729 28 Jul, 2016 Mild persistent asthma without complication J45.30 [facility] [id number] [place] [address] 92254- 7939 13 Jul, 2016 Pain in left knee M25.562 [facility] [id number] [place] [address] 59302- 7175 Jun, [facility] [id number] [place] [address] 75450 -5797 Jun, [facility] [id number] [place] [address] 28846- 3885 Jun, Mild persistent asthma without complication J45.30 [facility] [id number] [place] [address] 58619- 0743 May, [facility] [id number] [place] [address] 11346- 7690 Apr, Restrictive lung disease J98.4 [facility] [address] 84370- 5644 Apr, [facility] [id number] [place] [address] 83522- 8551 Apr, Mild persistent asthma without complication J45.30 [facility] [id number] [place] [address] 77364 -9853 Mar, Sore throat J02.9 and Post-nasal drainage R09.82 [facility] [id number] [place] [address] 80232- 2681 Mar, [facility] [id number] [place] [address] 60974- 2431 Feb, [facility] [id number] [place] [address] 03079- 8630 Feb, Mild persistent asthma without complication J45.30 [facility] [id number] [place] [address] 97106- 1350 Feb, Arthralgia, unspecified joint M25.50 [facility] [id number] [place] [address] 73852- 1339 Feb, Edema, unspecified type R60.9 ; Arthralgia, unspecified joint M25.50 ; Mild persistent asthma without complication J45.30 ; Essential hypertension I10 ; Gastroesophageal reflux disease without esophagitis K21.9 and Major depressive disorder with single episode, remission status unspecified F32.9 [facility] [id number] [address]- 3392 Jan, Edema, unspecified type R60.9 ; Essential hypertension I10 ; Mild persistent asthma without complication J45.30 ; Gastroesophageal reflux disease with esophagitis K21.0 ; Arthralgia, unspecified joint M25.50 and Major depressive disorder with single episode, remission status unspecified F32.9 [facility] [id number] [address]- 5139 Jan, [facility] [id number] [address]- 4260 Dec, [facility] [id number] [address]- 8548 Dec, [facility] [id number] [address]- 4726 Dec, [facility] [id number] [address]- 8721 Nov, Bilateral edema of lower extremity R60.0 [facility] [id number] [address]- 4755 Nov, Bilateral edema of lower extremity R60.0 [facility] [id number] [address] -[address]77 Nov, [facility] [id number] [address]- 8231 Nov, [facility] [id number] [address]- 8984 October, [facility] [id number] [address]- 4746 Sep, [facility] [id number] [address]- 2817 Aug, Acute sinusitis J01.90 [facility] [id number] [place] [address] 85863- 9695 Aug, [facility] [id number] [place] [address] 96271- 4276 Aug, [facility] [id number] [place] [address] 60002- 3832 Jul, [facility] [id number] [place] [address] 91330- 9199 Jul, Pharyngitis J02.9 [facility] [id number] [place] [address] 16190- 4834 Jul, [facility] [id number] [place] [address] 37873- 7587 Jun, Pain in left knee M25.562 [facility] [id number] [place] [address] 27864- 3591 Jun, [facility] [id number] [place] [address] 23567 -3394 May, Upper respiratory symptom R09.89 [facility] [id number] [place] [address] 77647- 3300 May, [facility] [id number] [place] [address] 64253- 1156 Apr, Costochondritis M94.0 and Knee pain, left M25.562 [facility] [id number] [place] [address] 42178- 2457 Apr, [facility] [id number] [place] [address] 87533- 2312 Mar, Eustachian tube dysfunction, left H69.82 [facility] [id number] [place] [address] 00578- 9582 Mar, [facility] [id number] [place] [address] 26230- 2156 Mar, [facility] [address] [facility] [id number] [address]- 0339 Mar, [facility] [id number] [address]- 2432 Feb, [facility] [address] [facility] [id number] [address]- 8541 Feb, [facility] [id number], [place] [address]- 2847 Feb, [facility] [address] [facility] [id number], [place] [address]- 7927 Jan, Asthma 493.90 [facility] [id number] [place] [address]- 7807 Dec, [facility] [id number] 5607 Dec, [facility] [id number] [address]- 2334 Dec, [facility] [id number] [address]- 8831 Dec, [facility] [id number]- 6611 Dec, Asthma, unspecified, unspecified status 493.90 [facility] [id number] [address]- 8486 Nov, [facility] [id number] [address]- 2476 Nov, Asthma, unspecified, unspecified status 493.90 [facility] [id number]- 4403 October, Asthma, unspecified, unspecified status 493.90 [facility] [id number]- 3332 October, [facility] [id number] [address]- 1796 October, Contact dermatitis 692.9 and Candidiasis of skin 112.3 [facility] [id number] [place] [address]- 3996 Sep, [facility] [address] [facility] [id number] [place] [address]- 6306 Sep, [facility] [address] [facility] [id number] [address]- 9178 Aug, [facility] [address] [facility] [id number] [place] [address]- 8872 Aug, [facility] [address] [place] [address]- 5918 Aug, [facility] [id number] [place] [address]- 1400 Aug, [facility] [address] [place] [address]- 2131 Jul, [facility] [id number] [place] [address]- 6059 Jul, [facility] [id number] 0164 Jun, [facility] [id number] [address]- 2823 Jun, [facility] [id number] 6306 May, [facility] [address] [facility] [id number], [place] [address] 2546 May, [facility] [id number] [place] [address]- 2866 May, [facility] [address] [facility] [id number] [address] 2546 May, [facility] [id number] [address]- 8380 May, [facility] [place] [facility] [address] [id number] [place] [address]- 4514 May, [facility] [place] [facility] [address] [id number] [place] [address]- 5524 Apr, [facility] [place] [facility] [address] [id number] [place] [address]- 6226 Apr, [facility] [place] [facility] [address] [id number] [place] [address]- 2611 15 Feb, 2014 [facility] [place] [facility] [address] [id number] [place] [address]- 6193 15 Feb, 2014 [facility] [place] [facility] [address] [id number] [place] [address]- 0623 Feb, [facility] [place] [facility] [address] [id number] [place] [address]- 9107 Feb, [facility] [place] [facility] [address] [id number] [place] [address]- 4216 Feb, [facility] [place] [facility] [address] [id number] [place] [address]- 4206 Feb, [facility] [place] [facility] [address] [id number] [place] [address]- 1174 Jan, [facility] [place] [facility] [address] [id number] [place] [address]- 4716 Jan, [facility] [place] [facility] [address] [id number], [place] [address]- 1100 Jan, [facility] [place] [facility] [address] [id number] [place] [address]- 8794 Jan, [facility] [place] [facility] [address] [id number] [place] [address]- 2018 Jan, [facility] [place] [facility] [address] [id number] [place] [address]- 2724 Jan, [facility] [place] [facility] [address] [id number] [place] [address]- 2307 15 Dec, 2013 [facility] [place] [facility] [address] [id number] [place] [address]- 6934 Dec, [facility] [place] [facility] [address] [id number] [place] [address]- 9007 Nov, [facility] [place] [facility] [address] [id number] [place] [address]- 7108 Nov, [facility] [place] [facility] [address] [id number] [place] [address]- 4426 Nov, [facility] [place] [facility] [address] [id number] [place] [address]- 4430 Nov, [facility] [place] [facility] [address] [id number] [place] [address]- 5482 Nov, [facility] [place] [facility] [address] [id number] [place] [address]- 7931 Nov, [facility] [place] [facility] [address] [id number] [place] [address]- 0625 Nov, [facility] [place] [facility] [address] [id number] [place] [address]- 3268 Nov, [facility] [place] [facility] [address] [id number] [place] [address]- 0108 Nov, [facility] [place] [facility] [address] [id number] [place] [address]- 8022 Nov, [facility] [place] [facility] [address] [id number] [place] [address]- 6049 Nov, [facility] [place] [facility] [address] [id number] [place] [address]- 6431 Nov, [facility] [place] [facility] [address] [id number] [place] [address]- 3127 Nov, [facility] [place] [facility] [address] [id number] [place] [address]- 9470 October, [facility] [place] [facility] [address] [id number] [place] [address]- 5797 October, [facility] [place] [facility] [address] [id number] [place] [address]- 0679 October, [facility] [place] [facility] [address] [id number] [place] [address]- 6287 October, [facility] [place] [facility] [address] [id number] [place] [address]- 7432 Sep, [facility] [place] [facility] [address] [id number] [place] [address]- 6516 Sep, [facility] [place] [facility] [address] [id number] [place] [address]- 1345 Sep, [facility] [place] [facility] [address] [id number] [place] [address]- 1667 Sep, [facility] [place] [facility] [address] [id number] [place] [address]- 3032 Aug, [facility] [place] [facility] [address] [id number] [place] [address]- 1607 Aug, [facility] [place] [facility] [address] [id number] [place] [address]- 8323 Jul, [facility] [place] [facility] [address] [id number] [place] [address]- 1436 Jul, [facility] [place] [facility] [address] [id number], [place] [address]- 7974 Jun, [facility] [place] [facility] [address] [id number] [place] [address]- 9812 Jun, [facility] [place] [facility] [address] [id number] [place] [address]- 4089 Mar, [facility] [place] [facility] [address] [id number] [place] [address]- 4585 Mar, [facility] [place] [facility] [address] [id number] [address] Mar, [facility] [address] [id number] [place] [address] Mar, [facility] [place] [facility] [address] [id number] [place] [address] Mar, [facility] [place] [facility] [address] [id number] [place] [address] Feb, [facility] [place] [facility] [address] [id number] [place] [address] Feb, [facility] [place] [facility] [address] [id number] [place] [address] Dec, [facility] [place] [facility] [address] [id number] [place] [address] Nov, [facility] [address] [id number] [place] [address] October, [facility] [place] [facility] [address] [id number] [place] [address] Sep, [facility] [place] [facility] [address] [id number] [place] [address] Sep, [facility] [place] [facility] [address] [id number] [place] [address] Aug, [facility] [place] [facility] [address] [id number] [place] [address] Aug, [facility] [place] [facility] [address] [id number] [place] [address] Aug, [facility] [place] [facility] [address] [id number] [place] [address] Aug, [facility] [place] [facility] [address] [id number] [place] [address] 14 Jun, 2012 [facility] [place] [facility] [address] [id number] [place] [address] Jun, [facility] [place] [facility] [address] [id number] [place] [address] Jun, [facility] [place] [facility] [address] [id number] [place] [address] May, [facility] [place] [facility] [address] [id number] [place] [address] May, [facility] [place] [facility] [address] [id number] [place] [address] Apr, [facility] [place] [facility] [address] [id number] [place] [address] Apr, [facility] [place] [facility] [address] [id number] [place] [address] Apr, [facility] [place] [facility] [address] [id number] [place] [address] Apr, [facility] [place] [facility] [address] [id number] [place] [address] Apr, [facility] [place] [facility] [address] [id number] [place] [address]- [address] Apr, [facility] [place] [facility] [address] [id number] [place] [address] Apr, [facility] [place] [facility] [address] [facility] [id number] [place] [address] Mar, [facility] [place] [facility] [address] [id number] [place] [address] 31 Mar, 2012 [facility] [place] [facility] [address] [id number] [place] [address] 18 Feb, 2012 [facility] [place] [facility] [address] [id number] [place] [address] 17 Feb, 2012 [facility] [place] [facility] [address] [id number] [place] [address] 13 Feb, 2012 [facility] [place] [facility] [address] [id number] [place] [address] Jan, [facility] [place] [facility] [address] [id number] [place] [address] Jan, [facility] [place] [facility] [address] [id number] [place] [address] Jan, [facility] [place] [facility] [address] [id number] [place] [address] Jan, [facility] [place] [facility] [address] [id number] [place] [address] Dec, [facility] [place] [facility] [address] [id number] [place] [address] Dec, [facility] [place] [facility] [address] [id number] [place] [address] Dec, [facility] [place] [facility] [address] [id number] [place] [address] Dec, [facility] [place] [facility] [address] [id number] [place] [address] Dec, [facility] [place] [facility] [address] [id number] [place] [address] Nov, [facility] [place] [facility] [address] [id number] [place] [address] Nov, [facility] [place] [facility] [address] [id number] [place] [address] Nov, [facility] [place] [facility] [address] [id number] [place] [address] Nov, [facility] [place] [facility] [address] [id number] [place] [address] October, [facility] [place] [facility] [address] [id number] [place] [address] October, [facility] [place] [facility] [address] [id number] [place] [address] October, [facility] [place] [facility] [address] [id number] [place] [address] October, [facility] [address] [id number] [place] [address] October, [facility] [place] [facility] [address] [id number] [place] [address] Sep, [facility] [place] [facility] [address] [id number] [place] [address] Sep, [facility] [place] [facility] [address] [id number] [place] [address] Sep, [facility] [place] [facility] [address] [id number] [place] [address] Sep, [facility] [place] [facility] [address] [id number] [place] [address] Sep, [facility] [address] [id number] [place] [address] 29 Aug, 2011 [facility] [place] [facility] [address] [id number] [place] [address] 28 Aug, 2011 [facility] [place] [facility] [address] [id number] [place] [address] 27 Aug, 2011 [facility] [place] [facility] [address] [facility] [id number] [place] [address] 26 Aug, 2011 [facility] [place] [facility] [address] [id number] [place] [address] 23 Aug, 2011 [facility] [place] [facility] [address] [id number] [place] [address] 20 Aug, 2011 [facility] [place] [facility] [address] [id number] [place] [address] 19 Aug, 2011 [facility] [place] [facility] [address] [id number] [place] [address] 17 Aug, 2011 [facility] [place] [facility] [address] [id number] [place] [address] 18 Jun, 2011 [facility] [place] [facility] [address] [id number] [place] [address] Jun, [facility] [address] [id number] [place] [address] Jun, [facility] [place] [facility] [address] [id number] [place] [address] Jun, [facility] [address] [id number] [place] [address] Jun, [facility] [address] [id number] [place] [address] May, [facility] [place] [facility] [address] [id number] [place] [address] Apr, [facility] [address] [id number] [place] [address] October, [facility] [address] [id number] [place] [address] May, [facility] [address] [id number] [place] [address] May, [facility] [address] [id number] [place] [address] Apr, [facility] [place] [facility] [address] [id number] [place] [address] Jan, [facility] [address] [id number] [place] [address] 14 Dec, 2009 [facility] [place] [facility] [address] [id number] [place] [address] 12 Sep, 2009 [facility] [place] [facility] [address] [id number] [place] [address] Sep, [facility] [place] [facility] [address] [id number] [place] [address] 16 Jul, 2009 [facility] [place] [facility] [address] [id number] [place] [address] May, [facility] [address] [facility] [id number] [place] [address] Jan, IMMUNIZATIONS No Known Immunizations SOCIAL HISTORY [...]
--- OUTSIDE RECORDS SUMMARY | 2018-05-04 07:22 | XMS REPORT ---
Author Author JENNIFER CANCINO Organization [facility] Address [address] [place] [address] Care Team Providers Care Medical Assistant Cardiology Name Role Phone JENNIFER CANCINO Unavailable PROBLEMS Type Condition ICD9-CM Code JRP86-GM Code Onset Dates Condition Status SNOMED Code Problem Mild persistent asthma without complication J45.30 Active 714617619 Problem Edema, unspecified type R60.9 Active 384362083 Problem Gastroesophageal reflux disease with esophagitis K21.0 Active 549184838 Problem Essential hypertension I10 Active 68975283 Problem Moderate persistent asthma with exacerbation J45.41 Active 395321222 Problem Other chronic pain G89.29 Active 16315989 Problem Esophageal abnormality K22.9 Active 36267419 Problem Hammer toe of right foot M20.41 Active 249017412 Problem Abnormal EKG R94.31 Active 586385675 Problem Right upper quadrant abdominal pain R10.11 Active 446878748 ALLERGIES No Information ENCOUNTERS Encounter Location Date Diagnosis [place] [address] [address]68 Feb, Mild persistent asthma without complication J45.30 [place] [address] [place] [id number] [place] [address] 55846- 7482 Feb, Other chronic pain G89.29 [place] [address] [place] [id number] [place] [address] 72590- 1424 Feb, Other chronic pain G89.29 and BMI 40.0-44.9, adult Z68.41 [place] [address] 74232- 5140 Dec, BMI 40.0-44.9, adult Z68.41 ; Other chronic pain G89.29 and Pain in left hip M25.552 [place] [address] 79885- 2990 Nov, Abscess L02.91 [place] [address] [place] [id number] [place] [address] 50326- 3081 Nov, Moderate persistent asthma with exacerbation J45.41 [place] [address] 69137- 9211 Nov, Low back pain M54.5 and Other chronic pain G89.29 [place] [address] 47101- 6722 October, Abscess L02.91 [place] [address] 17331- 4563 October, Cutaneous abscess of back excluding buttocks L02.212 and BMI 40.0-44.9, adult Z68.41 [place] [address] 11874- 5933 October, [place] [address] 69714- 4256 October, [place] [address] 36587- 3682 Sep, [place] [address] [place] [id number] [place] [address] 07492- 5849 Sep, Abscess L02.91 [place] [address] 80798- 9471 Sep, Right upper quadrant abdominal pain R10.11 ; Mild persistent asthma without complication J45.30 and BMI 40.0-44.9, adult Z68.41 [place] [address] [place] [id number] [place] [address] 62249- 7401 Aug, Abscess L02.91 and BMI 40.0-44.9, adult Z68.41 [place] [address] [place] [id number] [place] [address] 36136- 0509 Aug, Edema, unspecified type R60.9 [place] [address] [place] [id number] [place] [address] 95795- 0133 Aug, Right upper quadrant abdominal pain R10.11 ; Abnormal EKG R94.31 ; Esophageal abnormality K22.9 and BMI 40.0-44.9, adult Z68.41 [place] [address] [place] [id number] [place] [address] 65691- 4133 Aug, Hammer toe of right foot M20.41 and Onychomycosis B35.[address] [facility] [address] [place] [id number] [place] [address] 22569 -6693 Aug, Myalgia M79.1 [place] [address] 71424- 9807 Aug, [place] [address] [place] [id number] [place] [address] 19893- 8943 Aug, Annual physical exam Z00.00 ; BMI 40.0-44.9, adult Z68.41 ; Mild persistent asthma without complication J45.30 ; Gastroesophageal reflux disease with esophagitis K21.0 ; Acute right-sided thoracic back pain M54.6 ; Trouble breathing R06.89 and Neck pain M54.2 [place] [address] [place] [id number] [place] [address] 22989- 9515 28 Jul, 2017 Mild persistent asthma without complication J45.30 [place] [address] [place] [id number] [place] [address] 31617- 1972 Jul, Edema, unspecified type R60.9 [place] [address] [place] [id number] [place] [address] 12245- 0685 Jun, Edema, unspecified type R60.9 [place] [address] [place] [id number] [place] [address] 64864- 1970 Jun, Moderate persistent asthma with exacerbation J45.41 [place] [address] [place] [id number] [place] [address] 26269- 4461 May, Edema, unspecified type R60.9 [place] [address] [place] [address] 84559- 2354 08 May, 2017 Moderate persistent asthma with exacerbation J45.41 and Hammer toe of right foot M20.41 [place] [address] [place] [id number] [place] [address] 82267- 9153 04 May, 2017 Moderate persistent asthma without complication J45.40 ; Dysfunction of left eustachian tube H69.82 and BMI 45.0-49.9, adult Z68.42 [place] [address] [place] [id number] [place] [address] 95421- 3214 Apr, Edema, unspecified type R60.9 [place] [address] [place] [id number] [place] [address] 33680- 0583 Mar, Edema, unspecified type R60.9 [place] [address] [place] [id number] [place] [address] 72190- 8767 Feb, Edema, unspecified type R60.9 [place] [address] [place] [id number] [place] [address] 66096- 8317 Jan, Edema, unspecified type R60.9 [place] [address] [place] [id number] [place] [address] 73923- 9822 Jan, Mild persistent asthma without complication J45.30 [place] [address] [place] [id number] [place] [address] 28620- 3774 Dec, Edema, unspecified type R60.9 [place] [address] [place] [id number] [place] [address] 40178- 5483 Nov, Edema, unspecified type R60.9 and Essential hypertension I10 [place] [address] [place] [id number] [place] [address] 77114- 2589 October, Pain in left knee M25.562 [place] [address] [place] [id number] [place] [address] 29654- 7907 October, Pain in left knee M25.562 [place] [address] [place] [id number] [place] [address] 77860- 3332 October, [facility] [address] [place] [id number] [place] [address] 12332- 3744 Sep, [facility] [address] [place] [id number] [place] [address] 76915- 1449 Sep, Mild persistent asthma without complication J45.30 [facility] [address] [place] [id number] [place] [address] 54245- 5717 Sep, Pain in left knee M25.562 [facility] [address] [place] [id number] [place] [address] 01214- 9038 Aug, Acute nasopharyngitis J00 and Seasonal allergic rhinitis due to pollen J30.1 [place] [address] [place] [id number] [place] [address] 32203- 9635 16 Aug, 2016 [facility] [address] [place] [id number] [place] [address] 33343- 8966 Aug, Arthralgia, unspecified joint M25.50 and Pain in left knee M25.562 [facility] [address] [place] [id number] [place] [address] 61959- 6461 Aug, Mild persistent asthma without complication J45.30 [facility] [address] [place] [address] 74871- 4220 Jul, Mild persistent asthma without complication J45.30 [facility] [address] [place] [id number] [place] [address] 67168- 5908 Jul, Pain in left knee M25.562 [facility] [address] [place] [id number] [place] [address] 24528- 5428 Jun, [facility] [address] [place] [id number] [place] [address] 12792 -3159 Jun, [facility] [address] [place] [id number] [place] [address] 64114- 1782 Jun, Mild persistent asthma without complication J45.30 [facility] [address] [address]- 0045 May, [facility] [address] [place] [id number] [place] [address] 94792- 0634 Apr, Restrictive lung disease J98.4 [facility] [address] [place] [id number] [place] [address] 70639- 1608 Apr, [place] [address] [place] [id number] [place] [address] 12359- 7100 Apr, Mild persistent asthma without complication J45.30 [facility] [address] [place] [id number] [place] [address] 25191 -0203 Mar, Sore throat J02.9 and Post-nasal drainage R09.82 [place] [address] [place] [id number] [place] [address] 60440- 1540 Mar, [place] [address] [place] [id number] [place] [address] 34501- 4841 Feb, [place] [address] [place] [id number] [place] [address] 34250- 3724 Feb, Mild persistent asthma without complication J45.30 [place] [address] [place] [address] 18442- 3316 Feb, Arthralgia, unspecified joint M25.50 [place] [address] [place] [id number] [place] [address] 17654- 1413 Feb, Edema, unspecified type R60.9 ; Arthralgia, unspecified joint M25.50 ; Mild persistent asthma without complication J45.30 ; Essential hypertension I10 ; Gastroesophageal reflux disease without esophagitis K21.9 and Major depressive disorder with single episode, remission status unspecified F32.9 [facility] [address] [address]- 9661 Jan, Edema, unspecified type R60.9 ; Essential hypertension I10 ; Mild persistent asthma without complication J45.30 ; Gastroesophageal reflux disease with esophagitis K21.0 ; Arthralgia, unspecified joint M25.50 and Major depressive disorder with single episode, remission status unspecified F32.9 [facility] [address] [place] [id number] [address]- 0674 Jan, [facility] [address] [place] [id number] [address]- 3939 Dec, [facility] [address] [place] [id number] [place] [address] 22073- 6519 Dec, [facility] [address] [place] [id number] [place] [address] 91303- 5869 Dec, [facility] [address] [place] [id number] [place] [address] 84085- 1845 Nov, Bilateral edema of lower extremity R60.0 [facility] [address] [place] [id number] [place] [address] 62221- 4358 Nov, Bilateral edema of lower extremity R60.0 [facility] [address] [address] -4153 Nov, [facility] [address] [place] [id number] [place] [address] 83310- 8834 Nov, [facility] [address] [address]- 5138 October, [facility] [address] [place] [id number] [place] [address] 84010- 4850 Sep, [facility] [address] [address]- 3950 Aug, Acute sinusitis J01.90 [facility] [address] [place] [id number] [place] [address] 77978- 5329 Aug, [facility] [address] [place] [id number] [address]- 1145 Aug, [facility] [address] [place] [id number] [place] [address] 52318- 1310 Jul, [facility] [address] [place] [address] 63843- 8563 Jul, Pharyngitis J02.9 [facility] [address] [place] [id number] [place] [address] 34875- 2191 Jul, [facility] [address] [place] [id number] [place] [address] 62161- 7485 Jun, Pain in left knee M25.562 [facility] [address] [place] [id number] [place] [address] 39572- 0251 Jun, [facility] [address] [place] [id number] [place] [address] 34050 -6295 May, Upper respiratory symptom R09.89 [facility] [address] [place] [id number] [place] [address] 68427- 5010 May, [facility] [address] [place] [id number] [place] [address] 21377- 5482 Apr, Costochondritis M94.0 and Knee pain, left M25.562 [facility] [address] [place] [id number] [place] [address] 02138- 3517 Apr, [facility] [address] [place] [id number] [place] [address] 96469- 1152 Mar, Eustachian tube dysfunction, left H69.82 [facility] [address] [place] [id number] [place] [address] 87122- 5419 Mar, [facility] [address] [place] [id number] [place] [address] 40740- 2359 Mar, [facility] [address] [place] [id number] [place] [address] 53686- 0431 Mar, [facility] [address] [place] [id number] [place] [address] 68709- 3401 Feb, [facility] [address] [place] [id number] [place] [address] 05894- 1163 Feb, [facility] [address] 1549 Feb, [facility] [address] [address]- 3152 Jan, Asthma 493.90 [facility] [address] [address]- 4008 Dec, [facility] [address] [place] [address] 94525- 1355 Dec, [facility] [address] [place] [address] 01557- 2219 Dec, [facility] [address] [place] [address] 46059- 6081 Dec, [facility] [address] [place] [address] 635602- 4365 Dec, Asthma, unspecified, unspecified status 493.90 [facility] [address] [address]- 9399 Nov, [facility] [address] [address]- 5404 Nov, Asthma, unspecified, unspecified status 493.90 [facility] [address] [address]- 5587 October, Asthma, unspecified, unspecified status 493.90 [facility] [address] [address]- 3553 October, [facility] [address] [address]- 6168 October, Contact dermatitis 692.9 and Candidiasis of skin 112.3 [facility] [address] 5083 Sep, [facility] [address] [address]- 3036 Sep, [facility] [place] [facility] [address] [id number] [place] [address]- 7710 Aug, [facility] [place] [facility] [address] [id number] [place] [address]- 9906 Aug, [facility] [place] [facility] [address] [facility] [id number] [place] [address]- 9184 Aug, [facility] [place] [facility] [address] [id number] [place] [address]- 3728 Aug, [facility] [place] [facility] [address] [id number] [place] [address]- 2976 Jul, [facility] [place] [facility] [address] [facility] [id number] [place] [address]- 7909 Jul, [facility] [place] [facility] [address] [facility] [id number] [place] [address]- 0853 Jun, [facility] [place] [facility] [address] [facility] [id number] [place] [address]- 8471 Jun, [facility] [place] [facility] [address] [facility] [id number] [place] [address]- 3158 May, [facility] [place] [facility] [address] [facility] [id number] [place] [address]- 8404 May, [facility] [place] [facility] [address] [facility] [id number] [place] [address]- 4163 May, [facility] [place] [facility] [address] [facility] [id number] [place] [address]- 3628 May, [facility] [place] [facility] [address] [id number] [place] 7289 May, [facility] [place] [facility] [address] [facility] [id number] [place] [address]- 9545 May, [facility] [place] [facility] [address] [facility] [id number] [place] [address]- 3682 Apr, [facility] [place] [facility] [address] [id number] [place] [address]- 4549 Apr, [facility] [place] [facility] [address] [id number] [place] [address]- 6426 15 Feb, 2014 [facility] [place] [facility] [address] [id number] [place] [address] 2546 15 Feb, 2013 [facility] [place] [facility] [address] [id number] [place] [address] 2546 10 Feb, 2013 [facility] [place] [facility] [address] [id number] [place] [address] 2547 10 Feb, 2013 [facility] [place] [facility] [address] [id number] [place] [address]- 2632 05 Feb, 2014 [facility] [place] [facility] [address] [id number] [place] [address]- 8459 Feb, [facility] [place] [facility] [address] [id number] [place] [address]- 7725 Jan, [facility] [place] [facility] [address] [id number] [place] [address]- 5970 Jan, [facility] [place] [facility] [address] [id number] [place] [address]- 5628 Jan, [facility] [place] [facility] [address] [id number] [place] [address]- 6089 Jan, [facility] [place] [facility] [address] [id number] [place] [address]- 3848 Jan, [facility] [place] [facility] [address] [id number] [place] [address]- 6772 Jan, [facility] [place] [facility] [address] [id number] [place] [address]- 3205 Dec, [facility] [place] [facility] [address] [id number] [place] 4785 Dec, [facility] [place] [facility] [address] [id number] [place] [address]- 6369 Nov, [facility] [place] [facility] [address] [id number] [place] [address]- 2541 Nov, [facility] [place] [facility] [address] [id number] [place] [address]- 4334 Nov, [facility] [place] [facility] [address] [id number] [place] [address]- 0160 Nov, [facility] [place] [facility] [address] [id number] [place] [address]- 9576 Nov, [facility] [place] [facility] [address] [id number] [place] [address]- 2948 Nov, [facility] [place] [facility] [address] [id number] [place] [address]- 7151 Nov, [facility] [place] [facility] [address] [id number] [place] [address]- 0030 Nov, [facility] [place] [facility] [address] [id number] [place] [address]- 7480 Nov, [facility] [place] [facility] [address] [id number] [place] [address]- 4479 Nov, [facility] [place] [facility] [address] [id number] [place] [address]- 8979 Nov, [facility] [place] [facility] [address] [id number] [address]- 5916 Nov, [facility] [place] [facility] [address] [id number] [place] [address]- 5918 Nov, [facility] [place] [facility] [address] [id number] [place] [address]- 5952 October, [facility] [place] [facility] [address] [id number] [place] [address]- 4322 October, [facility] [place] [facility] [address] [id number] [place] [address]- 7952 October, [facility] [place] [facility] [address] [id number] [place] [address]- 5177 October, [facility] [place] [facility] [address] [id number] [place] [address]- 3790 Sep, [facility] [place] [facility] [address] [id number] [place] [address]- 4687 Sep, [facility] [place] [facility] [address] [id number] [place] [address]- 2023 Sep, [facility] [place] [facility] [address] [id number] [place] [address]- 5521 Sep, [facility] [place] [facility] [address] [id number] [place] [address]- 3168 Aug, [facility] [place] [facility] [address] [id number] [place] [address]- 0661 Aug, [facility] [place] [facility] [address] [id number] [place] [address]- 6882 Jul, [facility] [place] [facility] [address] [id number] [place] [address]- 4921 Jul, [facility] [place] [facility] [address] [facility] [id number] [place] [address]- 2420 Jun, [facility] [place] [facility] [address] [facility] [id number] [place] [address]- 7610 Jun, [facility] [place] [facility] [address] [id number] [place] [address]- 6274 Mar, [facility] [place] [facility] [address] [id number] [place] [address]- 1161 Mar, [facility] [place] [facility] [address] [id number] [place] [address]- 2263 Mar, [facility] [place] [facility] [address] [id number] [place] [address]- 2706 Mar, [facility] [place] [facility] [address] [id number] [place] [address]- 1271 Mar, [facility] [place] [facility] [address] [id number] [place] [address] Feb, [facility] [address] [id number] [place] [address] Feb, [facility] [address] [id number] [place] [address] Dec, [facility] [address] [id number] [place] [address] Nov, [facility] [address] [id number] [place] [address] October, [facility] [address] [id number] [place] [address] Sep, [facility] [address] [id number] [place] [address] Sep, [facility] [address] [id number] [place] [address] Aug, [facility] [address] [id number] [place] [address] Aug, [facility] [address] [id number] [place] [address] Aug, [facility] [address] [id number] [place] [address] Aug, [facility] [address] [id number] [address] Jun, [facility] [place] [facility] [address] [id number] [place] [address] Jun, [facility] [place] [facility] [address] [id number] [place] [address] Jun, [facility] [place] [facility] [address] [id number] [place] [address] May, [facility] [address] [id number] [place] [address] May, [facility] [place] [facility] [address] [id number] [place] [address] Apr, [facility] [place] [facility] [address] [id number] [place] [address] Apr, [facility] [place] [facility] [address] [id number] [place] [address] Apr, [facility] [place] [facility] [address] [id number] [place] [address] Apr, [facility] [place] [facility] [address] [id number] [place] [address] Apr, [facility] [place] [facility] [address] [id number] [place] [address] Apr, [facility] [place] [facility] [address] [id number] [place] [address] Apr, [facility] [place] [facility] [address] [id number] [place] [address] Mar, [facility] [place] [facility] [address] [id number] [place] [address] 31 Mar, 2012 [facility] [place] [facility] [address] [facility] [id number] [place] [address] 18 Feb, 2012 [facility] [place] [facility] [address] [id number] [place] [address] 17 Feb, 2012 [facility] [place] [facility] [address] [id number] [place] [address] 13 Feb, 2012 [facility] [place] [facility] [address] [id number] [place] [address] 15 Jan, 2012 [facility] [place] [facility] [address] [id number] [place] [address] 14 Jan, 2012 [facility] [place] [facility] [address] [facility] [id number] [place] [address] 06 Jan, 2012 [facility] [place] [facility] [address] [id number] [place] [address] Jan, [facility] [place] [facility] [address] [id number] [place] [address] Dec, [facility] [place] [facility] [address] [id number] [place] [address] Dec, [facility] [place] [facility] [address] [id number] [place] [address] Dec, [facility] [place] [facility] [address] [id number] [place] [address]- [address] Dec, [facility] [place] [facility] [address] [id number] [place] [address] Dec, [facility] [facility] [address] [id number] [place] [address] Nov, [facility] [address] [id number] [place] [address] Nov, [facility] [address] [id number] [place] [address] Nov, [facility] [address] [id number] [place] [address] [address] Nov, [facility] [address] [id number] [place] [address] [address], [facility] [address] [id number] [place] [address] October, [facility] [address] [id number] [place] [address] October, [facility] [address] [id number] [place] [address] October, [facility] [address] [id number] [place] [address] October, [facility] [facility] [address] [id number] [place] [address] Sep, [facility] [address] [id number] [place] [address] Sep, [facility] [facility] [address] [id number] [place] [address] Sep, [facility] [place] [facility] [address] [id number] [place] [address] Sep, [facility] [facility] [address] [id number] [place] [address] 03 Sep, 2011 [facility] [facility] [address] [id number] [place] [address] 29 Aug, 2011 [facility] [facility] [address] [id number] [place] [address] 28 Aug, 2011 [facility] [address] [id number] [place] [address] 27 Aug, 2011 [facility] [facility] [address] [id number] [place] [address] 26 Aug, 2011 [facility] [facility] [address] [id number] [place] [address] 23 Aug, 2011 [facility] [address] [id number] [place] [address] 20 Aug, 2011 [facility] [facility] [address] [id number] [place] [address] 19 Aug, 2011 [facility] [facility] [address] [id number] [place] [address] 17 Aug, 2011 [facility] [address] [id number] [place] [address] 18 Jun, 2011 [facility] [facility] [address] [id number] [place] [address] 12 Jun, 2011 [facility] [facility] [address] [id number] [place] [address] Jun, [facility] [id number] [address] 10 Jun, 2011 [facility] [id number] [address] Jun, [facility] [id number] [address] May, [facility] [id number] [address] Apr, [facility] [id number] [address] October, [facility] [id number] [address] May, [facility] [id number] [address] May, [facility] [id number] [address] Apr, [facility] [id number] [address] Jan, [facility] [id number] [address] Dec, [facility] [id number] [address] Sep, [facility] [id number] [address] Sep, [facility] [id number] [address] Jul, [facility] [id number] [address] May, [facility] [id number] [address] Jan, IMMUNIZATIONS No Known Immunizations SOCIAL HISTORY Never Assessed REASON FOR VISIT PALS renewal PLAN OF CARE VITAL SIGNS MEDICATIONS Medication Instructions Dosage Frequency Start Date End Date Duration Status Advair Diskus 250-50 MCG/DOSE Inhalation Twice a day 1 puff 12h Nov, 90 days Active RESULTS No Results PROCEDURES No [...]
--- OUTSIDE RECORDS SUMMARY | 2018-05-04 07:22 | XMS REPORT ---
Author Author JENNIFER CANCINO Organization [facility] Address [address] [place] [address] Care Team Providers Care Rehab Nurse Name Role Phone JENNIFER CANCINO Unavailable PROBLEMS Type Condition ICD9-CM Code RLW11-ZF Code Onset Dates Condition Status SNOMED Code Problem Mild persistent asthma without complication J45.30 Active 832256526 Problem Edema, unspecified type R60.9 Active 366095427 Problem Gastroesophageal reflux disease with esophagitis K21.0 Active 648183157 Problem Essential hypertension I10 Active 11766492 Problem Moderate persistent asthma with exacerbation J45.41 Active 811206198 Problem Other chronic pain G89.29 Active 94593078 Problem Esophageal abnormality K22.9 Active 95594390 Problem Hammer toe of right foot M20.41 Active 396230876 Problem Abnormal EKG R94.31 Active 519686235 Problem Right upper quadrant abdominal pain R10.11 Active 166492811 ALLERGIES No Information ENCOUNTERS Encounter Location Date Diagnosis [place] [address] [address]- [address] Feb, Mild persistent asthma without complication J45.30 [place] [address] [place] [id number] [place] [address] 05054- 9818 Feb, Other chronic pain G89.29 [place] [address] [place] [id number] [place] [address] 68203- 1529 Feb, Other chronic pain G89.29 and BMI 40.0-44.9, adult Z68.41 [place] [address] 86805- 0456 Dec, BMI 40.0-44.9, adult Z68.41 ; Other chronic pain G89.29 and Pain in left hip M25.552 [place] [address] 99295- 8896 Nov, Abscess L02.91 [place] [address] [place] [id number] [place] [address] 88912- 7675 Nov, Moderate persistent asthma with exacerbation J45.41 [place] [address] 75058- 9108 Nov, Low back pain M54.5 and Other chronic pain G89.29 [place] [address] 80358- 3143 October, Abscess L02.91 [place] [address] 03970- 9422 October, Cutaneous abscess of back excluding buttocks L02.212 and BMI 40.0-44.9, adult Z68.41 [place] [address] 13686- 0015 October, [place] [address] 04761- 2360 October, [place] [address] 40852- 5328 Sep, [place] [address] [place] [id number] [place] [address] 48777- 4462 Sep, Abscess L02.91 [place] [address] 57942- 3362 Sep, Right upper quadrant abdominal pain R10.11 ; Mild persistent asthma without complication J45.30 and BMI 40.0-44.9, adult Z68.41 [place] [address] [place] [id number] [place] [address] 21894- 2428 Aug, Abscess L02.91 and BMI 40.0-44.9, adult Z68.41 [place] [address] [place] [id number] [place] [address] 29183- 8345 Aug, Edema, unspecified type R60.9 [place] [address] [place] [id number] [place] [address] 10556- 7482 Aug, Right upper quadrant abdominal pain R10.11 ; Abnormal EKG R94.31 ; Esophageal abnormality K22.9 and BMI 40.0-44.9, adult Z68.41 [place] [address] [place] [id number] [place] [address] 25114- 2718 Aug, Hammer toe of right foot M20.[address] [facility] [address] [place] [id number] [place] [address] 98441 -8703 Aug, Myalgia M79.1 [place] [address] 03054- 0516 Aug, [place] [address] [place] [id number] [place] [address] 52557- 3351 Aug, Annual physical exam Z00.00 ; BMI 40.0-44.9, adult Z68.41 ; Mild persistent asthma without complication J45.30 ; Gastroesophageal reflux disease with esophagitis K21.0 ; Acute right-sided thoracic back pain M54.6 ; Trouble breathing R06.89 and Neck pain M54.2 [place] [address] [place] [id number] [place] [address] 42645- 2848 28 Jul, 2017 Mild persistent asthma without complication J45.30 [place] [address] [place] [id number] [place] [address] 02021- 4503 Jul, Edema, unspecified type R60.9 [place] [address] [place] [id number] [place] [address] 12215- 2603 Jun, Edema, unspecified type R60.9 [place] [address] [place] [id number] [place] [address] 05352- 9356 Jun, Moderate persistent asthma with exacerbation J45.41 [place] [address] [place] [id number] [place] [address] 75730- 7308 May, Edema, unspecified type R60.9 [place] [id number] [place] [address] 40491- 9341 08 May, 2017 Moderate persistent asthma with exacerbation J45.41 and Hammer toe of right foot M20.41 [place] [address] [place] [id number] [place] [address] 32539- 0316 04 May, 2017 Moderate persistent asthma without complication J45.40 ; Dysfunction of left eustachian tube H69.82 and BMI 45.0-49.9, adult Z68.42 [place] [address] [place] [id number] [place] [address] 62676- 0103 Apr, Edema, unspecified type R60.9 [place] [address] [place] [id number] [place] [address] 02597- 1727 Mar, Edema, unspecified type R60.9 [place] [address] [place] [id number] [place] [address] 87766- 8683 Feb, Edema, unspecified type R60.9 [place] [address] [place] [id number] [place] [address] 31736- 9431 Jan, Edema, unspecified type R60.9 [place] [address] [place] [id number] [place] [address] 29020- 1800 Jan, Mild persistent asthma without complication J45.30 [place] [address] [place] [id number] [place] [address] 86486- 9261 Dec, Edema, unspecified type R60.9 [place] [address] [place] [id number] [place] [address] 51326- 9614 Nov, Edema, unspecified type R60.9 and Essential hypertension I10 [place] [address] [place] [id number] [place] [address] 75419- 1451 October, Pain in left knee M25.562 [place] [address] [place] [id number] [place] [address] 08976- 8198 October, Pain in left knee M25.562 [place] [address] [place] [id number] [place] [address] 20372- 7614 October, [facility] [address] [place] [id number] [place] [address] 78578- 1466 Sep, [facility] [address] [place] [id number] [place] [address] 71967- 5032 Sep, Mild persistent asthma without complication J45.30 [facility] [address] [place] [id number] [place] [address] 52329- 7724 Sep, Pain in left knee M25.562 [facility] [address] [place] [id number] [place] [address] 34159- 1910 Aug, Acute nasopharyngitis J00 and Seasonal allergic rhinitis due to pollen J30.1 [place] [address] [place] [id number] [place] [address] 11620- 2640 16 Aug, 2016 [facility] [address] [place] [id number] [place] [address] 22902- 8777 Aug, Arthralgia, unspecified joint M25.50 and Pain in left knee M25.562 [facility] [address] [place] [id number] [place] [address] 44706- 8913 Aug, Mild persistent asthma without complication J45.30 [facility] [id number] [place] [address] 26994- 6390 Jul, Mild persistent asthma without complication J45.30 [facility] [address] [place] [id number] [place] [address] 55620- 6079 Jul, Pain in left knee M25.562 [facility] [address] [place] [id number] [place] [address] 32540- 8945 Jun, [facility] [address] [place] [id number] [place] [address] 44865 -7646 Jun, [facility] [address] [place] [id number] [place] [address] 52660- 3386 Jun, Mild persistent asthma without complication J45.30 [facility] [address] [address]- 9422 May, [facility] [address] [place] [id number] [place] [address] 32917- 2415 Apr, Restrictive lung disease J98.4 [facility] [address] [place] [id number] [place] [address] 76212- 3062 Apr, [place] [address] [place] [id number] [place] [address] 48951- 0630 Apr, Mild persistent asthma without complication J45.30 [facility] [address] [place] [id number] [place] [address] 79417 -6093 Mar, Sore throat J02.9 and Post-nasal drainage R09.82 [place] [address] [place] [id number] [place] [address] 58591- 4162 Mar, [place] [address] [place] [id number] [place] [address] 30283- 6885 Feb, [place] [address] [place] [id number] [place] [address] 32721- 0510 Feb, Mild persistent asthma without complication J45.30 [place] [id number] [place] [address] 86915- 2588 Feb, Arthralgia, unspecified joint M25.50 [place] [address] [place] [id number] [place] [address] 33577- 8555 Feb, Edema, unspecified type R60.9 ; Arthralgia, unspecified joint M25.50 ; Mild persistent asthma without complication J45.30 ; Essential hypertension I10 ; Gastroesophageal reflux disease without esophagitis K21.9 and Major depressive disorder with single episode, remission status unspecified F32.9 [facility] [address] [address]- 1105 Jan, Edema, unspecified type R60.9 ; Essential hypertension I10 ; Mild persistent asthma without complication J45.30 ; Gastroesophageal reflux disease with esophagitis K21.0 ; Arthralgia, unspecified joint M25.50 and Major depressive disorder with single episode, remission status unspecified F32.9 [facility] [address] [address] [id number] [address]- 7680 Jan, [facility] [address] [address] [id number] [address]- 5848 Dec, [facility] [address] [place] [id number] [place] [address] 53832- 8729 Dec, [facility] [address] [place] [id number] [place] [address] 43413- 6992 Dec, [facility] [address] [place] [id number] [place] [address] 44257- 8118 Nov, Bilateral edema of lower extremity R60.0 [facility] [address] [place] [id number] [place] [address] 58883- 3622 Nov, Bilateral edema of lower extremity R60.0 [facility] [address] [address] Nov, [facility] [address] [place] [id number] [place] [address] 25291- 9194 Nov, [facility] [address], [place] [address]- 8705 October, [facility] [address] [place] [id number] [place] [address] 43270- 2702 Sep, [facility] [address], [place] [address]- 7599 Aug, Acute sinusitis J01.90 [facility] [address] [place] [id number] [place] [address] 47148- 5519 Aug, [facility] [address] [id number] [address]- 9749 Aug, [facility] [address] [place] [id number] [place] [address] 05506- 6899 Jul, [facility] [id number] [place] [address] 01334- 2031 Jul, Pharyngitis J02.9 [facility] [address] [place] [id number] [place] [address] 06865- 5202 Jul, [facility] [address] [place] [id number] [place] [address] 04686- 2878 Jun, Pain in left knee M25.562 [facility] [address] [place] [id number] [place] [address] 15794- 5293 Jun, [facility] [address] [place] [id number] [place] [address] 36357 -7615 May, Upper respiratory symptom R09.89 [facility] [address] [place] [id number] [place] [address] 53902- 6206 May, [facility] [address] [place] [id number] [place] [address] 43647- 3790 Apr, Costochondritis M94.0 and Knee pain, left M25.562 [facility] [address] [place] [id number] [place] [address] 70013- 3980 Apr, [facility] [address] [place] [id number] [place] [address] 21471- 1982 Mar, Eustachian tube dysfunction, left H69.82 [facility] [address] [place] [id number] [place] [address] 30219- 0655 Mar, [facility] [address] [place] [id number] [place] [address] 57861- 4380 Mar, [facility] [address] [place] [id number] [place] [address] 87397- 2950 Mar, [facility] [address] [place] [id number] [place] [address] 27453- 9028 Feb, [facility] [address] [place] [id number] [place] [address] 04003- 6924 Feb, [facility] [address] 5227 Feb, [facility] [address], [place] [address]- 5634 Jan, Asthma 493.90 [facility] [address], [place] [address]- 5087 Dec, [facility] [id number] [place] [address] 16363- 6695 Dec, [facility] [id number] [place] [address] 11065- 5470 Dec, [facility] [id number] [place] [address] 21029- 5018 Dec, [facility] [id number] [place] [address] 309285- 4043 Dec, Asthma, unspecified, unspecified status 493.90 [facility] [address], [place] [address]- 0006 Nov, [facility] [address], [place] [address]- 7852 Nov, Asthma, unspecified, unspecified status 493.90 [facility] [address], [place] [address]- 7389 October, Asthma, unspecified, unspecified status 493.90 [facility] [address], [place] [address]- 5927 October, [facility] [address], [place] [address]- 9843 October, Contact dermatitis 692.9 and Candidiasis of skin 112.3 [facility] [address] 6382 Sep, [facility] [address], [place] [address]- 6386 Sep, [facility] [place] [facility] [address] [id number] [place] [address]- 2799 Aug, [facility] [place] [facility] [address] [id number] [place] [address]- 7576 Aug, [facility] [place] [facility] [address] [facility] [id number] [place] [address]- 5566 Aug, [facility] [place] [facility] [address] [id number] [place] [address]- 5412 Aug, [facility] [place] [facility] [address] [id number] [place] [address]- 6888 Jul, [facility] [place] [facility] [address] [facility] [id number] [place] [address]- 3221 Jul, [facility] [place] [facility] [address] [facility] [id number] [place] [address]- 1427 Jun, [facility] [place] [facility] [address] [facility] [id number] [place] [address]- 3905 Jun, [facility] [place] [facility] [address] [facility] [id number] [place] [address]- 5302 May, [facility] [place] [facility] [address] [facility] [id number] [place] [address]- 5815 May, [facility] [place] [facility] [address] [facility] [id number] [place] [address]- 3729 May, [facility] [place] [facility] [address] [facility] [id number] [place] [address]- 4819 May, [facility] [place] [facility] [address] [id number] [place] 7628 May, [facility] [place] [facility] [address] [facility] [id number] [place] [address]- 9985 May, [facility] [place] [facility] [address] [facility] [id number] [place] [address]- 3350 Apr, [facility] [place] [facility] [address] [id number] [place] [address]- 2414 Apr, [facility] [place] [facility] [address] [id number] [place] [address]- 4096 15 Feb, 2014 [facility] [place] [facility] [address] [id number] [place] [address] 2546 15 Feb, 2013 [facility] [place] [facility] [address] [id number] [place] [address] 2546 10 Feb, 2013 [facility] [place] [facility] [address] [id number] [place] [address] 2549 10 Feb, 2013 [facility] [place] [facility] [address] [id number] [place] [address]- 8404 05 Feb, 2014 [facility] [place] [facility] [address] [id number] [place] [address]- 1150 Feb, [facility] [place] [facility] [address] [id number] [place] [address]- 9504 Jan, [facility] [place] [facility] [address] [id number] [place] [address]- 1295 Jan, [facility] [place] [facility] [address] [id number] [place] [address]- 5043 Jan, [facility] [place] [facility] [address] [id number] [place] [address]- 8542 Jan, [facility] [place] [facility] [address] [id number] [place] [address]- 4866 Jan, [facility] [place] [facility] [address] [id number] [place] [address]- 8265 Jan, [facility] [place] [facility] [address] [id number] [place] [address]- 9080 Dec, [facility] [place] [facility] [address] [id number] [place] 7911 Dec, [facility] [place] [facility] [address] [id number] [place] [address]- 2295 Nov, [facility] [place] [facility] [address] [id number] [place] [address]- 6085 Nov, [facility] [place] [facility] [address] [id number] [place] [address]- 1493 Nov, [facility] [place] [facility] [address] [id number] [place] [address]- 7277 Nov, [facility] [place] [facility] [address] [id number] [place] [address]- 6371 Nov, [facility] [place] [facility] [address] [id number] [place] [address]- 8572 Nov, [facility] [place] [facility] [address] [id number] [place] [address]- 7983 Nov, [facility] [place] [facility] [address] [id number] [place] [address]- 9544 Nov, [facility] [place] [facility] [address] [id number] [place] [address]- 3395 Nov, [facility] [place] [facility] [address] [id number] [place] [address]- 2385 Nov, [facility] [place] [facility] [address] [id number] [place] [address]- 8345 Nov, [facility] [place] [facility] [address] [id number], [place] [address]- 0796 Nov, [facility] [place] [facility] [address] [id number], [place] [address]- 3018 Nov, [facility] [place] [facility] [address] [id number] [place] [address]- 5588 October, [facility] [place] [facility] [address] [id number] [place] [address]- 2273 October, [facility] [place] [facility] [address] [id number] [place] [address]- 8611 October, [facility] [place] [facility] [address] [id number] [place] [address]- 0752 October, [facility] [place] [facility] [address] [id number] [place] [address]- 6136 Sep, [facility] [place] [facility] [address] [id number] [place] [address]- 9447 Sep, [facility] [place] [facility] [address] [id number] [place] [address]- 3306 Sep, [facility] [place] [facility] [address] [id number] [place] [address]- 9668 Sep, [facility] [place] [facility] [address] [id number] [place] [address]- 7367 Aug, [facility] [place] [facility] [address] [id number] [place] [address]- 2781 Aug, [facility] [place] [facility] [address] [id number] [place] [address]- 0029 Jul, [facility] [place] [facility] [address] [id number] [place] [address]- 6461 Jul, [facility] [place] [facility] [address] [facility] [id number] [place] [address]- 7133 Jun, [facility] [place] [facility] [address] [facility] [id number] [place] [address]- 6582 Jun, [facility] [place] [facility] [address] [id number] [place] [address]- 4306 Mar, [facility] [place] [facility] [address] [id number] [place] [address]- 1382 Mar, [facility] [place] [facility] [address] [id number] [place] [address]- 7507 Mar, [facility] [place] [facility] [address] [id number] [place] [address]- 5755 Mar, [facility] [place] [facility] [address] [id number] [place] [address]- 1360 Mar, [facility] [place] [facility] [address] [id number] [place] [address]- 2046 Feb, [facility] [address] [id number] [place] [address]- 4568 Feb, [facility] [address] [id number] [place] [address]- 0652 Dec, [facility] [address] [id number] [place] [address]- 3484 Nov, [facility] [address] [id number] [place] [address]- 4346 October, [facility] [address] [id number] [place] [address]- 4691 Sep, [facility] [address] [id number] [place] [address]- 3902 Sep, [facility] [address] [id number] [place] [address]- 3852 Aug, [facility] [address] [id number] [place] [address]- 4019 Aug, [facility] [address] [id number] [place] [address] Aug, [facility] [address] [id number] [place] [address] Aug, [facility] [address] [id number], [place] [address] Jun, [facility] [place] [facility] [address] [id number] [place] [address] Jun, [facility] [place] [facility] [address] [id number] [place] [address] Jun, [facility] [place] [facility] [address] [id number] [place] [address] May, [facility] [address] [id number], [place] [address] May, [facility] [place] [facility] [address] [id number] [place] [address] Apr, [facility] [place] [facility] [address] [id number] [place] [address] Apr, [facility] [place] [facility] [address] [id number] [place] [address] Apr, [facility] [place] [facility] [address] [id number] [place] [address] Apr, [facility] [place] [facility] [address] [id number] [place] [address] Apr, [facility] [place] [facility] [address] [id number] [place] [address] Apr, [facility] [place] [facility] [address] [id number] [place] [address] Apr, [facility] [place] [facility] [address] [id number] [place] [address] Mar, [facility] [place] [facility] [address] [id number] [place] [address] 31 Mar, 2012 [facility] [place] [facility] [address] [facility] [id number] [place] [address] 18 Feb, 2012 [facility] [place] [facility] [address] [id number] [place] [address] 17 Feb, 2012 [facility] [place] [facility] [address] [id number] [place] [address] 13 Feb, 2012 [facility] [place] [facility] [address] [id number] [place] [address] 15 Jan, 2012 [facility] [place] [facility] [address] [id number] [place] [address] 14 Jan, 2012 [facility] [place] [facility] [address] [facility] [id number] [place] [address] 06 Jan, 2012 [facility] [place] [facility] [address] [id number] [place] [address] Jan, [facility] [place] [facility] [address] [id number] [place] [address] Dec, [facility] [place] [facility] [address] [id number] [place] [address] Dec, [facility] [place] [facility] [address] [id number] [place] [address] Dec, [facility] [place] [facility] [address] [id number] [place] [address] Dec, [facility] [place] [facility] [address] [id number] [place] [address] Dec, [facility] [place] [facility] [address] [id number] [place] [address] Nov, [facility] [place] [facility] [address] [id number] [place] [address] Nov, [facility] [address] [id number] [place] [address] Nov, [facility] [place] [facility] [address] [id number] [place] [address] Nov, [facility] [place] [facility] [address] [id number] [place] [address] October, [facility] [place] [facility] [address] [id number] [place] [address] October, [facility] [place] [facility] [address] [id number] [place] [address] October, [facility] [place] [facility] [address] [id number] [place] [address] October, [facility] [place] [facility] [address] [id number] [place] [address] October, [facility] [place] [facility] [address] [id number] [place] [address] Sep, [facility] [address] [id number] [place] [address] Sep, [facility] [place] [facility] [address] [id number] [place] [address] Sep, [facility] [place] [facility] [address] [id number] [place] [address] Sep, [facility] [place] [facility] [address] [id number] [place] [address] 03 Sep, 2011 [facility] [place] [facility] [address] [id number] [place] [address] 29 Aug, 2011 [facility] [place] [facility] [address] [id number] [place] [address] 28 Aug, 2011 [facility] [place] [facility] [address] [id number] [place] [address] 27 Aug, 2011 [facility] [place] [facility] [address] [id number] [place] [address] 26 Aug, 2011 [facility] [place] [facility] [address] [id number] [place] [address] 23 Aug, 2011 [facility] [place] [facility] [address] [id number] [place] [address] 20 Aug, 2011 [facility] [place] [facility] [address] [id number] [place] [address] 19 Aug, 2011 [facility] [place] [facility] [address] [id number] [place] [address] 17 Aug, 2011 [facility] [place] [facility] [address] [id number] [place] [address] 18 Jun, 2011 [facility] [place] [facility] [address] [id number] [place] [address] 12 Jun, 2011 [facility] [place] [facility] [address] [id number] [place] [address] Jun, [facility] [place] [facility] [id number] [place] [address] 10 Jun, 2011 [facility] [id number] [place] [address] Jun, [facility] [id number], [place] [address] May, [facility] [id number], [place] [address] Apr, [facility] [id number], [place] [address] October, [facility] [id number] [place] [address] May, [facility] [id number], [place] [address] May, [facility] [id number], [place] [address] Apr, [facility] [id number], [place] [address] Jan, [facility] [id number], [place] [address] Dec, [facility] [id number], [place] [address] Sep, [facility] [id number] [address] Sep, [facility] [id number], [place] [address] Jul, [facility] [id number], [place] [address] May, [facility] [id number] [address] Jan, IMMUNIZATIONS No Known Immunizations SOCIAL HISTORY Never Assessed REASON FOR VISIT Lab (walk-in) PLAN OF CARE VITAL SIGNS MEDICATIONS Unknown Medications RESULTS No Results PROCEDURES Procedure Date Ordered Result Body Site 09 PANEL (PROFILE 1) Feb 12, 2018 DRUG SCREENING TRAMADOL Feb 12, 2018 INSTRUCTIONS MEDICATIONS ADMINISTERED No Known Medications MEDICAL [...]
--- OUTSIDE RECORDS SUMMARY | 2018-05-04 07:23 | XMS REPORT ---
Author Author JENNIFER CANCINO Organization [facility] Address [address] [place] [address] Care Team Providers Care Meter Attendant Name Role Phone JENNIFER CANCINO Unavailable PROBLEMS Type Condition ICD9-CM Code [id number] Code Onset Dates Condition Status SNOMED Code Problem Mild persistent asthma without complication J45.30 Active 952364576 Problem Edema, unspecified type R60.9 Active 024157476 Problem Gastroesophageal reflux disease with esophagitis K21.0 Active 818313045 Problem Essential hypertension I10 Active 98076037 Problem Moderate persistent asthma with exacerbation J45.41 Active 461070199 Problem Other chronic pain G89.29 Active 36121741 Problem Esophageal abnormality K22.9 Active 79216080 Problem Hammer toe of right foot M20.41 Active 804053315 Problem Abnormal EKG R94.31 Active 883068960 Problem Right upper quadrant abdominal pain R10.11 Active 758919829 ALLERGIES Substance Reaction Event Type Date Status Naprosyn itching Drug Allergy Dec, Active Micardis Unknown Drug Allergy Dec, Active Hydrocodone Bitartrate itching Drug Allergy Dec, Active Celebrex swelling Drug Allergy Dec, Active Bactrim spots/rash Drug Allergy Dec, Active Doxycycline scalp rash Drug Allergy Dec, Active ENCOUNTERS Encounter Location Date Diagnosis [facility] [id number] [place] [address] 39457- 3785 Feb, Mild persistent asthma without complication J45.30 [facility] [id number] [place] [address] 82712- 2709 Feb, Other chronic pain G89.29 [facility] [id number] [address] 59[address] Feb, Other chronic pain G89.29 and BMI 40.0-44.9, adult Z68.41 [facility] [address] [address] 0153 Dec, BMI 40.0-44.9, adult Z68.41 ; Other chronic pain G89.29 and Pain in left hip M25.552 [facility] [id number] [place] [address] 33298- 4409 Nov, Abscess L02.91 [facility] [id number] [place] [address] 29527- 6766 Nov, Moderate persistent asthma with exacerbation J45.41 [facility] [id number] [place] [address] 05656- 9815 Nov, Low back pain M54.5 and Other chronic pain G89.29 [facility] [id number] [place] [address] 20668- 6033 October, Abscess L02.91 [facility] [id number] [place] [address] 88540- 7893 October, Cutaneous abscess of back excluding buttocks L02.212 and BMI 40.0-44.9, adult Z68.41 [facility] [id number] [place] [address] 15891- 4358 October, [facility] [id number] [place] [address] 10450- 4653 October, [facility] [id number] [place] [address] 16293- 5677 Sep, [facility] [id number] [place] [address] 48784- 0604 Sep, Abscess L02.91 [facility] [id number] [place] [address] 84407- 2318 Sep, Right upper quadrant abdominal pain R10.11 ; Mild persistent asthma without complication J45.30 and BMI 40.0-44.9, adult Z68.41 [facility] [id number] [place] [address] 97935- 8351 Aug, Abscess L02.91 and BMI 40.0-44.9, adult Z68.41 [facility] [id number] [place] [address] 22475- 8380 Aug, Edema, unspecified type R60.9 [facility] [id number] [place] [address] 91168- 3508 Aug, Right upper quadrant abdominal pain R10.11 ; Abnormal EKG R94.31 ; Esophageal abnormality K22.9 and BMI 40.0-44.9, adult Z68.41 [place] [address] 04290- 7445 Aug, Hammer toe of right foot M20.41 and Onychomycosis B35.1 [facility] [id number] [place] [address] 48713 -5946 Aug, Myalgia M79.1 [facility] [id number] [place] [address] 78881- 1214 Aug, [facility] [id number] [place] [address] 47499- 4950 Aug, Annual physical exam Z00.00 ; BMI 40.0-44.9, adult Z68.41 ; Mild persistent asthma without complication J45.30 ; Gastroesophageal reflux disease with esophagitis K21.0 ; Acute right-sided thoracic back pain M54.6 ; Trouble breathing R06.89 and Neck pain M54.2 [facility] [id number] [place] [address] 18855- 6882 Jul, Mild persistent asthma without complication J45.[address] 66035- 5501 Jul, Edema, unspecified type R60.9 [facility] [id number] [place] [address] 65708- 6262 Jun, Edema, unspecified type R60.9 [facility] [id number] [place] [address] 68053- 2901 Jun, Moderate persistent asthma with exacerbation J45.41 [place] [address] 90487- 5650 May, Edema, unspecified type R60.9 [facility] [id number] [place] [address] 69432- 3819 May, Moderate persistent asthma with exacerbation J45.41 and Hammer toe of right foot M20.41 [facility] [address] 29828- 6059 04 May, 2017 Moderate persistent asthma without complication J45.40 ; Dysfunction of left eustachian tube H69.82 and BMI 45.0-49.9, adult Z68.42 [facility] [address] 13773- 7097 Apr, Edema, unspecified type R60.9 [place] [address] 51324- 9754 Mar, Edema, unspecified type R60.9 [facility] [address] 02813- 6569 Feb, Edema, unspecified type R60.9 [facility] [id number] [place] [address] 68495- 4920 Jan, Edema, unspecified type R60.9 [facility] [id number] [place] [address] 93546- 9854 Jan, Mild persistent asthma without complication J45.30 [facility] [id number] [place] [address] 49155- 4228 Dec, Edema, unspecified type R60.9 [facility] [id number] [place] [address] 21346- 7702 Nov, Edema, unspecified type R60.9 and Essential hypertension I10 [facility] [address] [place] [address]- 4338 October, Pain in left knee M25.562 [facility] [id number] [place] [address] 23996- 4419 October, Pain in left knee M25.562 [facility] [id number] [place] [address] 75486- 4702 October, [facility] [id number] [place] [address] 46565- 5838 Sep, [facility] [id number] [place] [address] 79951- 3469 Sep, Mild persistent asthma without complication J45.30 [facility] [id number] [place] [address] 84402- 6947 Sep, Pain in left knee M25.562 [facility] [id number] [place] [address] 83775- 0587 Aug, Acute nasopharyngitis J00 and Seasonal allergic rhinitis due to pollen J30.1 [facility] [id number] [place] [address] 49490- 9498 16 Aug, 2016 [facility] [id number] [place] [address] 00802- 5895 Aug, Arthralgia, unspecified joint M25.50 and Pain in left knee M25.562 [place] [id number] [place] [address] 90799- 5799 Aug, Mild persistent asthma without complication J45.30 [facility] [id number] [place] [address] 67604- 4462 28 Jul, 2016 Mild persistent asthma without complication J45.30 [facility] [id number] [place] [address] 85611- 2094 13 Jul, 2016 Pain in left knee M25.562 [facility] [id number] [place] [address] 78142- 8799 Jun, [facility] [id number] [place] [address] 52408 -3954 Jun, [facility] [id number] [place] [address] 51476- 9572 Jun, Mild persistent asthma without complication J45.30 [facility] [id number] [place] [address] 45197- 9281 May, [facility] [id number] [place] [address] 92924- 0670 Apr, Restrictive lung disease J98.4 [place] [address] 73117- 2721 Apr, [facility] [id number] [place] [address] 07791- 8389 Apr, Mild persistent asthma without complication J45.30 [facility] [id number] [place] [address] 25839 -7839 Mar, Sore throat J02.9 and Post-nasal drainage R09.82 [facility] [id number] [place] [address] 61626- 9541 Mar, [facility] [id number] [place] [address] 41690- 0801 Feb, [facility] [id number] [place] [address] 79911- 6859 Feb, Mild persistent asthma without complication J45.30 [facility] [id number] [place] [address] 98828- 2399 Feb, Arthralgia, unspecified joint M25.50 [facility] [id number] [place] [address] 02432- 9764 Feb, Edema, unspecified type R60.9 ; Arthralgia, unspecified joint M25.50 ; Mild persistent asthma without complication J45.30 ; Essential hypertension I10 ; Gastroesophageal reflux disease without esophagitis K21.9 and Major depressive disorder with single episode, remission status unspecified F32.9 [facility] [address] [address]- 6667 Jan, Edema, unspecified type R60.9 ; Essential hypertension I10 ; Mild persistent asthma without complication J45.30 ; Gastroesophageal reflux disease with esophagitis K21.0 ; Arthralgia, unspecified joint M25.50 and Major depressive disorder with single episode, remission status unspecified F32.9 [facility] [address] [address]- 3168 Jan, [facility] [id number] [address]- 9011 Dec, [facility] [address] [address]- 9105 Dec, [facility] [address] [address]- 3949 Dec, [facility] [address] [address]- 9756 Nov, Bilateral edema of lower extremity R60.0 [facility] [address] [address]- 2173 Nov, Bilateral edema of lower extremity R60.0 [facility] [address] [address] -9102 Nov, [facility] [address], [place] [address]- 9406 Nov, [facility] [address] [address]- 2262 October, [facility] [address] [address]- 8736 Sep, [facility] [address] [address]- 7124 Aug, Acute sinusitis J01.90 [facility] [id number] [place] [address] 48380- 4314 Aug, [facility] [id number] [place] [address] 00080- 1409 Aug, [facility] [id number] [place] [address] 42621- 9057 Jul, [facility] [id number] [place] [address] 29439- 7513 Jul, Pharyngitis J02.9 [facility] [id number] [place] [address] 36032- 4593 Jul, [facility] [id number] [place] [address] 30254- 2473 Jun, Pain in left knee M25.562 [facility] [id number] [place] [address] 77760- 4924 Jun, [facility] [id number] [place] [address] 22669 -6513 May, Upper respiratory symptom R09.89 [facility] [id number] [place] [address] 50123- 3391 May, [facility] [id number] [place] [address] 74648- 6051 Apr, Costochondritis M94.0 and Knee pain, left M25.562 [facility] [id number] [place] [address] 89584- 5116 Apr, [facility] [id number] [place] [address] 35334- 5467 Mar, Eustachian tube dysfunction, left H69.82 [facility] [id number] [place] [address] 21052- 8180 Mar, [facility] [id number] [place] [address] 09794- 9783 Mar, [facility] [address] [facility] [facility] [id number] [address]- 9879 Mar, [facility] [id number] [address]- 8669 Feb, [facility] [address] [facility] [id number] [address]- 7791 Feb, [facility] [address] [address]- 9324 Feb, [facility] [address] [facility] [id number] [address]- 4246 Jan, Asthma 493.90 [facility] [address] [place] [address]- 2053 Dec, [facility] [address] 3128 Dec, [facility] [address] [address]- 6625 Dec, [facility] [address] [address]- 2582 Dec, [facility] [address] 2723 Dec, Asthma, unspecified, unspecified status 493.90 [facility] [id number] [address]- 8040 Nov, [facility] [id number] [address]- 6269 Nov, Asthma, unspecified, unspecified status 493.90 [facility] [id number]- 8593 October, Asthma, unspecified, unspecified status 493.90 [facility] [id number]- 8837 October, [facility] [id number] [address]- 6557 October, Contact dermatitis 692.9 and Candidiasis of skin 112.3 [facility] [address] [place] [address]- 8914 Sep, [facility] [address] [facility] [address] [facility] [id number] [place] [address]- 9076 Sep, [facility] [address] [facility] [id number] [address]- 3344 Aug, [facility] [address] [facility] [id number] [place] [address]- 7000 Aug, [facility] [address] [place] [address]- 3285 Aug, [facility] [id number] [place] [address]- 1608 Aug, [facility] [address] [place] [address]- 2462 Jul, [facility] [id number] [place] [address]- 6739 Jul, [facility] [address] 6773 Jun, [facility] [id number] [address]- 7068 Jun, [facility] [id number] 1217 May, [facility] [address] [facility] [id number] [address] 2546 May, [facility] [id number] [place] [address]- 9516 May, [facility] [address] [address] [facility] [id number] [address] 2546 May, [facility] [id number] [address]- 2030 May, [facility] [place] [facility] [address] [id number] [place] [address]- 1973 May, [facility] [place] [facility] [address] [id number] [place] [address]- 5633 Apr, [facility] [place] [facility] [address] [id number] [place] [address]- 7995 Apr, [facility] [place] [facility] [address] [id number] [place] [address]- 4470 15 Feb, 2014 [facility] [place] [facility] [address] [id number] [place] [address]- 4857 15 Feb, 2014 [facility] [place] [facility] [address] [id number] [place] [address]- 7538 Feb, [facility] [place] [facility] [address] [id number] [place] [address]- 7623 Feb, [facility] [place] [facility] [address] [id number] [place] [address]- 9893 Feb, [facility] [place] [facility] [address] [id number] [place] [address]- 4926 Feb, [facility] [place] [facility] [address] [id number] [place] [address]- 5673 Jan, [facility] [place] [facility] [address] [id number] [place] [address]- 8392 Jan, [facility] [place] [facility] [address] [id number][place] [address]- 7105 Jan, [facility] [place] [facility] [address] [id number] [place] [address]- 1076 Jan, [facility] [place] [facility] [address] [id number] [place] [address]- 5241 Jan, [facility] [place] [facility] [address] [id number] [place] [address]- 9178 Jan, [facility] [place] [facility] [address] [id number] [place] [address]- 8623 15 Dec, 2013 [facility] [place] [facility] [address] [id number] [place] [address]- 6276 Dec, [facility] [place] [facility] [address] [id number] [place] [address]- 7019 Nov, [facility] [place] [facility] [address] [id number] [place] [address]- 6192 Nov, [facility] [place] [facility] [address] [id number] [place] [address]- 1423 Nov, [facility] [place] [facility] [address] [id number] [place] [address]- 8970 Nov, [facility] [place] [facility] [address] [id number] [place] [address]- 9848 Nov, [facility] [place] [facility] [address] [id number] [place] [address]- 1618 Nov, [facility] [place] [facility] [address] [id number] [place] [address]- 1598 Nov, [facility] [place] [facility] [address] [id number] [place] [address]- 4480 Nov, [facility] [place] [facility] [address] [id number] [place] [address]- 6003 Nov, [facility] [place] [facility] [address] [id number] [place] [address]- 8963 Nov, [facility] [place] [facility] [address] [id number] [place] [address]- 4713 Nov, [facility] [place] [facility] [address] [id number] [place] [address]- 1100 Nov, [facility] [place] [facility] [address] [id number] [place] [address]- 2338 Nov, [facility] [place] [facility] [address] [id number] [place] [address]- 1132 October, [facility] [place] [facility] [address] [id number] [place] [address]- 0423 October, [facility] [place] [facility] [address] [id number] [place] [address]- 4255 October, [facility] [place] [facility] [address] [id number] [place] [address]- 8841 October, [facility] [place] [facility] [address] [id number] [place] [address]- 9304 Sep, [facility] [place] [facility] [address] [id number] [place] [address]- 8805 Sep, [facility] [place] [facility] [address] [id number] [place] [address]- 7909 Sep, [facility] [place] [facility] [address] [id number] [place] [address]- 3612 Sep, [facility] [place] [facility] [address] [id number] [place] [address]- 8776 Aug, [facility] [place] [facility] [address] [id number] [place] [address] Aug, [facility] [place] [facility] [address] [id number] [place] [address] Jul, [facility] [place] [facility] [address] [id number] [place] [address] Jul, [facility] [place] [facility] [address] [id number] [address] Jun, [facility] [place] [facility] [address] [id number] [place] [address] Jun, [facility] [place] [facility] [address] [id number] [place] [address] Mar, [facility] [place] [facility] [address] [id number] [place] [address] Mar, [facility] [place] [facility] [address] [id number], [place] [address] Mar, [facility] [address] [id number] [place] [address] Mar, [facility] [place] [facility] [address] [id number] [place] [address] Mar, [facility] [place] [facility] [address] [id number] [place] [address] Feb, [facility] [place] [facility] [address] [id number] [place] [address] Feb, [facility] [place] [facility] [address] [id number] [place] [address] Dec, [facility] [place] [facility] [address] [id number] [place] [address] Nov, [facility] [address] [id number] [place] [address] October, [facility] [place] [facility] [address] [id number] [place] [address] Sep, [facility] [place] [facility] [address] [id number] [place] [address] Sep, [facility] [place] [facility] [address] [id number] [place] [address] Aug, [facility] [place] [facility] [address] [id number] [place] [address] Aug, [facility] [place] [facility] [address] [id number] [place] [address] Aug, [facility] [place] [facility] [address] [id number] [place] [address] Aug, [facility] [place] [facility] [address] [id number] [place] [address] 14 Jun, 2012 [facility] [place] [facility] [address] [id number] [place] [address] Jun, [facility] [place] [facility] [address] [id number] [place] [address] Jun, [facility] [place] [facility] [address] [id number] [place] [address] May, [facility] [place] [facility] [address] [id number] [place] [address] May, [facility] [place] [facility] [address] [id number] [place] [address] Apr, [facility] [place] [facility] [address] [id number] [place] [address] Apr, [facility] [place] [facility] [address] [id number] [place] [address] Apr, [facility] [place] [facility] [address] [id number] [place] [address] Apr, [facility] [place] [facility] [address] [id number] [place] [address] Apr, [facility] [place] [facility] [address] [id number] [place] [address] Apr, [facility] [place] [facility] [address] [id number] [place] [address] Apr, [facility] [place] [facility] [address] [facility] [id number] [place] [address] Mar, [facility] [place] [facility] [address] [id number] [place] [address] 31 Mar, 2012 [facility] [place] [facility] [address] [id number] [place] [address] 18 Feb, 2012 [facility] [place] [facility] [address] [id number] [place] [address] 17 Feb, 2012 [facility] [place] [facility] [address] [id number] [place] [address] 13 Feb, 2012 [facility] [place] [facility] [address] [address] [id number] [place] [address] Jan, [facility] [place] [facility] [address] [id number] [place] [address] Jan, [facility] [place] [facility] [address] [id number] [place] [address] Jan, [facility] [place] [facility] [address] [id number] [place] [address] Jan, [facility] [place] [facility] [address] [id number] [place] [address] Dec, [facility] [place] [facility] [address] [id number] [place] [address] Dec, [facility] [place] [facility] [address] [id number] [place] [address] Dec, [facility] [place] [facility] [address] [id number] [place] [address] Dec, [facility] [place] [facility] [address] [id number] [place] [address] Dec, [facility] [place] [facility] [address] [id number] [place] [address] Nov, [facility] [place] [facility] [address] [id number] [place] [address] Nov, [facility] [place] [facility] [address] [id number] [place] [address] Nov, [facility] [place] [facility] [address] [id number] [place] [address] Nov, [facility] [place] [facility] [address] [id number] [place] [address] October, [facility] [place] [facility] [address] [id number] [place] [address] October, [facility] [place] [facility] [address] [id number] [place] [address] October, [facility] [place] [facility] [address] [id number] [place] [address] October, [facility] [address] [id number] [place] [address] October, [facility] [place] [facility] [address] [id number] [place] [address] Sep, [facility] [place] [facility] [address] [id number] [place] [address] Sep, [facility] [place] [facility] [address] [id number] [place] [address] Sep, [facility] [place] [facility] [address] [id number] [place] [address] Sep, [facility] [place] [facility] [address] [id number] [place] [address] Sep, [facility] [address] [id number] [place] [address] 29 Aug, 2011 [facility] [place] [facility] [address] [id number] [place] [address] 28 Aug, 2011 [facility] [place] [facility] [address] [id number] [place] [address] 27 Aug, 2011 [facility] [place] [facility] [address] [facility] [id number] [place] [address] 26 Aug, 2011 [facility] [place] [facility] [address] [id number] [place] [address] 23 Aug, 2011 [facility] [place] [facility] [address] [id number] [place] [address] 20 Aug, 2011 [facility] [place] [facility] [address] [id number] [place] [address] 19 Aug, 2011 [facility] [place] [facility] [address] [id number] [place] [address] 17 Aug, 2011 [facility] [place] [facility] [address] [id number] [place] [address] 18 Jun, 2011 [facility] [place] [facility] [address] [id number] [place] [address] Jun, [facility] [address] [id number] [place] [address] Jun, [facility] [place] [facility] [address] [id number] [place] [address] Jun, [facility] [address] [id number] [place] [address] Jun, [facility] [address] [id number] [place] [address] May, [facility] [place] [facility] [address] [id number] [place] [address] Apr, [facility] [address] [id number] [place] [address] October, [facility] [address] [id number] [place] [address] May, [facility] [address] [id number] [place] [address] May, [facility] [address] [id number] [place] [address] Apr, [facility] [place] [facility] [address] [id number] [place] [address] Jan, [facility] [address] [id number] [place] [address] 14 Dec, 2009 [facility] [place] [facility] [address] [id number] [place] [address] 12 Sep, 2009 [facility] [place] [facility] [address] [id number] [place] [address] Sep, [facility] [place] [facility] [address] [id number] [place] [address] 16 Jul, 2009 [facility] [place] [facility] [address] [id number] [place] [address] May, [facility] [address] [address] [facility] [id number] [place] [address] Jan, IMMUNIZATIONS No Known Immunizations SOCIAL HISTORY Never Assessed REASON FOR VISIT Pain management (chronic)- left hip pain-Hugo Palmer RN PLAN OF CARE Activity Details Future/Pending Procedure JOINT INJECTION-LARGE JOINT VITAL SIGNS Height 64 in 2017-12-23 Weight 243 lbs 2017-12-23 Temperature 98.0 degrees Fahrenheit 2017-12-23 Heart Rate 70 bpm 2017-12-23 Respiratory Rate 18 2017-12-23 BMI 41.71 kg/m2 2017-12-23 Blood pressure systolic 124 mmHg 2017-12-23 Blood pressure diastolic 72 mmHg 2017-12-23 MEDICATIONS Medication Instructions Dosage Frequency Start Date End Date Duration Status Cyclobenzaprine HCl 5 MG TAKE ONE TABLET BY MOUTH TWICE DAILY 30 Active Wellbutrin XL 150 MG Orally Once a day 1 tablet in the morning 24h Active Ibuprofen 800 MG Orally Three times a day 1 tablet 8h Active Tramadol HCl 50 MG Orally 1 tablet 3 times a day as needed 1 tablet 28 days Active Losartan Potassium 25 MG 1 tablet 24h Active Proventil HFA 108 (90 Base) MCG/ACT Inhalation every 4 hrs 2 puffs as needed 4h Feb, 30 days Active Advair Diskus 250-50 MCG/DOSE Inhalation Twice a day 1 puff 12h 26 Nov, 2014 60 days Active Omeprazole 20 mg 1 capsule 24h 30 Active Hydrochlorothiazide 50 mg Orally Once a day 1 tablet 24h 30 Active Albuterol Sulfate (2.5 MG/3ML) 0.083% USE ONE VIAL (3 ML) PER NEBULIZER FOUR TIMES DAILY NEEDED FOR WHEEZING OR COUGH 6 Active Spiriva Respimat 1.25 MCG/ACT Inhalation Once a day 2 puffs 24h Aug, 90 days Active RESULTS No Results PROCEDURES Procedure Date Ordered Result Body Site DRAIN/INJECT, JOINT/BURSA December 23, 2017 INSTRUCTIONS MEDICATIONS ADMINISTERED No Known Medications MEDICAL [...]
--- OUTSIDE RECORDS SUMMARY | 2018-05-04 07:24 | XMS REPORT ---
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 Name Role Phone JENNIFER CANCINO Unavailable PROBLEMS Type Condition ICD9-CM Code XZV25-JR Code Onset Dates Condition Status SNOMED Code Problem Mild persistent asthma without complication J45.30 Active 678078758 Problem Edema, unspecified type R60.9 Active 772680588 Problem Gastroesophageal reflux disease with esophagitis K21.0 Active 489464700 Problem Essential hypertension I10 Active 91536910 Problem Moderate persistent asthma with exacerbation J45.41 Active 815914461 Problem Other chronic pain G89.29 Active 15459279 Problem Esophageal abnormality K22.9 Active 73600780 Problem Hammer toe of right foot M20.41 Active 748918177 Problem Abnormal EKG R94.31 Active 843708944 Problem Right upper quadrant abdominal pain R10.11 Active 643016552 ALLERGIES Substance Reaction Event Type Date Status Naprosyn itching Drug Allergy Nov, Active Micardis Unknown Drug Allergy Nov, Active Hydrocodone Bitartrate itching Drug Allergy Nov, Active Celebrex swelling Drug Allergy Nov, Active Bactrim spots/rash Drug Allergy Nov, Active Doxycycline scalp rash Drug Allergy Nov, Active ENCOUNTERS Encounter Location Date Diagnosis [facility] [id number] [place] [address] 98297- 6892 Dec, BMI 40.0-44.9, adult Z68.41 ; Other chronic pain G89.29 and Pain in left hip M25.552 [place] [id number] [place] [address] 64689- 9096 Nov, Abscess L02.91 [place] [id number] [place] [address] 45332- 4534 Nov, Moderate persistent asthma with exacerbation J45.41 [place] [address] [id number] [place] [address] 96189- 1657 Nov, Low back pain M54.5 and Other chronic pain G89.29 [place] [address] [id number] [place] [address] 65873- 3421 October, Abscess L02.91 [place] [address] [id number] [place] [address] 88325- 7353 October, Cutaneous abscess of back excluding buttocks L02.212 and BMI 40.0-44.9, adult Z68.41 [place] [id number] [place] [address] 14269- 8535 October, [place] [id number] [place] [address] 85379- 9679 October, [place] [id number] [place] [address] 79417- 7817 Sep, [place] [id number] [place] [address] 98032- 8181 Sep, Abscess L02.91 [place] [address] [id number] [place] [address] 32454- 8068 Sep, Right upper quadrant abdominal pain R10.11 ; Mild persistent asthma without complication J45.30 and BMI 40.0-44.9, adult Z68.41 [place] [id number] [place] [address] 00174- 3173 Aug, Abscess L02.91 and BMI 40.0-44.9, adult Z68.41 [place] [id number] [place] [address] 29863- 0055 Aug, Edema, unspecified type R60.9 [place] [address] [id number] [place] [address] 46121- 5731 Aug, Right upper quadrant abdominal pain R10.11 ; Abnormal EKG R94.31 ; Esophageal abnormality K22.9 and BMI 40.0-44.9, adult Z68.41 [place] [address] [place] [address] 70098- 3231 Aug, Hammer toe of right foot M20.41 and Onychomycosis B35.1 [facility] [address] [address] Aug, Myalgia M79.1 [place] [address] [id number] [place] [address] 65954- 2116 Aug, [place] [address] [address] [id number] [place] [address] 09937- 3756 Aug, Annual physical exam Z00.00 ; BMI 40.0-44.9, adult Z68.41 ; Mild persistent asthma without complication J45.30 ; Gastroesophageal reflux disease with esophagitis K21.0 ; Acute right-sided thoracic back pain M54.6 ; Trouble breathing R06.89 and Neck pain M54.2 [place] [address] [address] [id number] [place] [address] 23739- 5665 Jul, Mild persistent asthma without complication J45.30 [place] [address] [address] [id number] [place] [address] 99894- 5642 Jul, Edema, unspecified type R60.9 [place] [address] [id number] [place] [address] 83375- 0073 Jun, Edema, unspecified type R60.9 [place] [address] [id number] [place] [address] 25017- 1432 Jun, Moderate persistent asthma with exacerbation J45.41 [place] [address] [id number] [place] [address] 72363- 8933 May, Edema, unspecified type R60.9 [place] [address] [id number] [place] [address] 31028- 8249 May, Moderate persistent asthma with exacerbation J45.41 and Hammer toe of right foot M20.41 [place] [address] [id number] [place] [address] 30777- 9210 May, Moderate persistent asthma without complication J45.40 ; Dysfunction of left eustachian tube H69.82 and BMI 45.0-49.9, adult Z68.42 [place] [address] [id number] [place] [address] 92478- 0395 Apr, Edema, unspecified type R60.9 [place] [address] [address] [id number] [place] [address] 13752- 6176 Mar, Edema, unspecified type R60.9 [place] [address] [address] [id number] [place] [address] 25466- 7055 Feb, Edema, unspecified type R60.9 [place] [address] [address] [id number] [place] [address] 61353- 4611 Jan, Edema, unspecified type R60.9 [place] [address] [address] [id number] [place] [address] 87862- 0757 Jan, Mild persistent asthma without complication J45.30 [place] [address] [address] [id number] [place] [address] 52983- 3156 Dec, Edema, unspecified type R60.9 [place] [address] [address] [id number] [place] [address] 51147- 8838 Nov, Edema, unspecified type R60.9 and Essential hypertension I10 [place] [address] [address] [id number] [place] [address] 59283- 8154 October, Pain in left knee M25.562 [place] [address] [address] [id number] [place] [address] 88442- 1249 October, Pain in left knee M25.562 [place] [address] [place] [address] [id number] [place] [address] 68749- 7218 October, [place] [address] [place] [address] [id number] [place] [address] 00635- 3446 Sep, [facility] [address] [place] [address] 86809- 8824 Sep, Mild persistent asthma without complication J45.30 [facility] [id number] [place] [address] 29203- 5290 Sep, Pain in left knee M25.562 [facility] [id number] [place] [address] 52022- 6746 Aug, Acute nasopharyngitis J00 and Seasonal allergic rhinitis due to pollen J30.1 [facility] [id number] [place] [address] 53223- 7361 16 Aug, 2016 [facility] [id number] [place] [address] 09648- 9583 Aug, Arthralgia, unspecified joint M25.50 and Pain in left knee M25.562 [place] [address] [address] [id number] [place] [address] 98595- 8656 Aug, Mild persistent asthma without complication J45.30 [facility] [address] [id number] [place] [address] 40059- 9166 28 Jul, 2016 Mild persistent asthma without complication J45.30 [facility] [address] [id number] [place] [address] 87357- 7441 13 Jul, 2016 Pain in left knee M25.562 [facility] [id number] [place] [address] 63796- 7247 Jun, [facility] [address] [place] [address] 06382 -9835 Jun, [facility] [id number] [place] [address] 50681- 4634 Jun, Mild persistent asthma without complication J45.30 [facility] [id number] [place] [address] 46119- 3917 May, [facility] [id number] [place] [address] 39249- 2255 Apr, Restrictive lung disease J98.4 [facility] [address] [place] [address] 14937- 1427 Apr, [place] [address] [id number] [place] [address] 46403- 6333 Apr, Mild persistent asthma without complication J45.30 [facility] [id number] [place] [address] 85717 -9363 Mar, Sore throat J02.9 and Post-nasal drainage R09.82 [place] [address] [address] [id number] [place] [address] 86831- 5616 Mar, [place] [address] [address] [id number] [place] [address] 14475- 7197 Feb, [place] [address] [id number] [place] [address] 07270- 8502 Feb, Mild persistent asthma without complication J45.30 [facility] [id number] [place] [address] 79216- 1615 Feb, Arthralgia, unspecified joint M25.50 [place] [address] [address] [id number] [place] [address] 72464- 9356 Feb, Edema, unspecified type R60.9 ; Arthralgia, unspecified joint M25.50 ; Mild persistent asthma without complication J45.30 ; Essential hypertension I10 ; Gastroesophageal reflux disease without esophagitis K21.9 and Major depressive disorder with single episode, remission status unspecified F32.9 [place] [address] [place] [address] 98830- 0636 Jan, Edema, unspecified type R60.9 ; Essential hypertension I10 ; Mild persistent asthma without complication J45.30 ; Gastroesophageal reflux disease with esophagitis K21.0 ; Arthralgia, unspecified joint M25.50 and Major depressive disorder with single episode, remission status unspecified F32.9 [place] [address] [place] [id number] [place] [address] 19123- 0941 Jan, [facility] [address] [facility] [id number] [address]- 9022 Dec, [facility] [address] [facility] [id number] [place] [address] 821177- 9472 Dec, [facility] [address] [facility] [id number], [place] [address]- 2764 Dec, [facility] [address] [facility] [id number] [place] [address] 25202- 3306 Nov, Bilateral edema of lower extremity R60.0 [facility] [address] [facility] [id number] [place] [address] 91093- 6577 Nov, Bilateral edema of lower extremity R60.0 [facility] [address] [facility] [id number], [place] [address] -9884 Nov, [facility] [id number] [place] [address] 18719- 6463 Nov, [facility] [address] [place] [id number] [address]- 5787 October, [facility] [address] [place] [address] 25191- 5016 Sep, [facility] [address], [place] [address]- 6791 Aug, Acute sinusitis J01.90 [facility] [address] [address]- 9587 Aug, [facility] [address] [facility] [id number], [place] [address]- 7605 Aug, [facility] [address] [address]- 8180 Jul, [facility] [address] [place] [address] [id number] [address]- 1060 Jul, Pharyngitis J02.9 [facility] [address], [place] [address]- 7301 Jul, [facility] [id number] [place] [address] 49174- 4665 Jun, Pain in left knee M25.562 [facility] [address] [address]- 5154 Jun, [facility] [address] [id number] [place] [address] 35848 -3650 May, Upper respiratory symptom R09.89 [facility] [address] [address] [place] [address] 41452- 2472 May, [facility] [address] [place] [address] 05260- 9323 Apr, Costochondritis M94.0 and Knee pain, left M25.562 [facility] [address] [place] [address] 53846- 4851 Apr, [facility] [id number] [place] [address] 97103- 1237 Mar, Eustachian tube dysfunction, left H69.82 [facility] [address] [address]- 2549 Mar, [facility] [address] [address]- 4175 Mar, [facility] [id number] [place] [address] 20731- 7868 Mar, [facility] [address] [address]- 1440 Feb, [facility] [id number] [place] [address] 29081- 7517 Feb, [facility] [address], [place] [address]- 7559 Feb, [facility] [address] 7599 Jan, Asthma 493.90 [facility] [address]- 1640 Dec, [facility] [address], [place] [address]- 4764 Dec, [facility] [address] [place] [address] 99804- 1090 Dec, [facility] [address], [place] [address]- 9017 Dec, [facility] [address] [place] [address] 59036- 8143 Dec, Asthma, unspecified, unspecified status 493.90 [facility] [address], [place] [address]- 0537 Nov, [facility] [id number] [place] [address] 15732- 6514 Nov, Asthma, unspecified, unspecified status 493.90 [facility] [address] 0580 October, Asthma, unspecified, unspecified status 493.90 [facility] [address], [place] [address]- 1268 October, [facility] [address], [place] [address]- 3750 October, Contact dermatitis 692.9 and Candidiasis of skin 112.3 [facility] [address], [place] [address]- 3984 Sep, [facility] [address] [place] [address] 66806- 9405 Sep, [facility] [id number] [address]- 2507 Aug, [facility] [address] [id number] [place] [address]- 8156 Aug, [facility] [place] [facility] [address] [id number] [place] [address]- 5586 Aug, [facility] [place] [facility] [address] [id number] [place] [address]- 9666 Aug, [facility] [place] [facility] [address] [id number] [place] [address]- 4496 Jul, [facility] [place] [facility] [address] [id number] [place] [address]- 8761 Jul, [facility] [place] [facility] [address] [id number] [place] [address]- 2119 Jun, [facility] [place] [facility] [address] [id number] [place] [address]- 8236 Jun, [facility] [place] [facility] [address] [id number] [place] [address]- 7952 May, [facility] [place] [facility] [address] [id number] [place] [address]- 9931 May, [facility] [place] [facility] [address] [id number] [place] [address]- 5614 May, [facility] [place] [facility] [address] [id number] [place] [address]- 1400 May, [facility] [place] [facility] [address] [id number] [place] [address] 2546 May, [facility] [place] [facility] [address] [id number] [place] [address]- 1449 May, [facility] [place] [facility] [address] [id number] [place] [address]- 4746 Apr, [facility] [place] [facility] [address] [id number] [place] 3015 Apr, [facility] [place] [facility] [address] [id number] [place] [address]- 4712 15 Feb, 2014 [facility] [place] [facility] [address] [id number] [place] [address]- 9862 15 Feb, 2014 [facility] [place] [facility] [address] [id number] [place] [address]- 3748 Feb, [facility] [place] [facility] [address] [id number] [place] [address]- 1490 Feb, [facility] [place] [facility] [address] [id number] [place] [address]- 9258 05 Feb, 2014 [facility] [place] [facility] [address] [id number] [place] [address]- 7485 05 Feb, 2014 [facility] [place] [facility] [address] [id number] [place] [address]- 6540 Jan, [facility] [place] [facility] [address] [id number] [place] [address]- 4507 Jan, [facility] [place] [facility] [address] [id number] [place] [address]- 7804 Jan, [facility] [place] [facility] [address] [id number] [place] [address]- 7816 Jan, [facility] [place] [facility] [address] [id number] [place] [address]- 4489 Jan, [facility] [place] [facility] [address] [id number] [place] [address]- 2487 Jan, [facility] [place] [facility] [address] [id number] [place] [address]- 0135 Dec, [facility] [place] [facility] [address] [id number] [place] [address]- 7239 Dec, [facility] [place] [facility] [address] [id number] [place] [address]- 4254 Nov, [facility] [place] [facility] [address] [id number] [place] 8647 Nov, [facility] [place] [facility] [address] [id number] [place] [address]- 8089 Nov, [facility] [place] [facility] [address] [id number] [place] [address]- 8824 Nov, [facility] [place] [facility] [address] [id number] [place] [address]- 5899 Nov, [facility] [place] [facility] [address] [id number] [place] [address]- 0044 Nov, [facility] [place] [facility] [address] [id number] [place] [address]- 3297 Nov, [facility] [place] [facility] [address] [id number] [place] [address]- 1026 Nov, [facility] [place] [facility] [address] [id number] [place] [address]- 0917 Nov, [facility] [place] [facility] [address] [id number] [place] [address]- 2124 Nov, [facility] [place] [facility] [address] [id number] [place] [address]- 4752 Nov, [facility] [place] [facility] [address] [id number] [place] [address]- 8949 Nov, [facility] [place] [facility] [address] [id number] [place] [address]- 8996 Nov, [facility] [place] [facility] [address] [id number] [place] [address]- 6694 October, [facility] [place] [facility] [address] [id number] [place] [address]- 4085 October, [facility] [place] [facility] [address] [id number] [place] [address]- 1383 October, [facility] [place] [facility] [address] [id number] [place] [address]- 3160 October, [facility] [place] [facility] [address] [id number] [place] [address]- 0731 Sep, [facility] [place] [facility] [address] [id number] [place] [address]- 1463 10 Sep, 2013 [facility] [place] [facility] [address] [id number] [place] [address]- 7671 Sep, [facility] [place] [facility] [address] [id number] [place] [address]- 9631 Sep, [facility] [place] [facility] [address] [id number] [place] [address]- 8923 Aug, [facility] [place] [facility] [address] [id number] [place] [address]- 4578 Aug, [facility] [place] [facility] [address] [id number] [place] [address]- 4102 Jul, [facility] [place] [facility] [address] [id number] [place] [address]- 8398 Jul, [facility] [place] [facility] [address] [id number] [place] [address]- 1215 Jun, [facility] [place] [facility] [address] [id number] [place] [address]- 8757 Jun, [facility] [place] [facility] [address] [id number] [place] [address]- 2524 Mar, [facility] [place] [facility] [address] [id number] [place] [address]- 9927 Mar, [facility] [place] [facility] [address] [id number] [place] [address]- 8568 Mar, [facility] [place] [facility] [address] [id number] [place] [address]- 9982 Mar, [facility] [place] [facility] [address] [id number] [place] [address] Mar, [facility] [place] [facility] [address] [id number] [place] [address] Feb, [facility] [place] [facility] [address] [id number] [place] [address] Feb, [facility] [address] [id number] [place] [address] Dec, [facility] [address] [id number] [place] [address] Nov, [facility] [address] [id number] [place] [address] October, [facility] [address] [id number] [place] [address] Sep, [facility] [address] [id number] [place] [address] Sep, [facility] [address] [id number] [place] [address] Aug, [facility] [address] [id number] [place] [address] Aug, [facility] [address] [id number] [place] [address] Aug, [facility] [address] [id number] [place] [address] Aug, [facility] [address] [id number] [place] [address] Jun, [facility] [address] [id number], [place] [address] Jun, [facility] [place] [facility] [address] [id number], [place] [address] Jun, [facility] [place] [facility] [address] [id number] [place] [address] May, [facility] [place] [facility] [address] [id number] [place] [address] May, [facility] [place] [facility] [address] [id number] [place] [address] Apr, [facility] [address] [id number] [place] [address] Apr, [facility] [place] [facility] [address] [id number] [place] [address] Apr, [facility] [place] [facility] [address] [id number] [place] [address] Apr, [facility] [place] [facility] [address] [id number] [place] [address] Apr, [facility] [place] [facility] [address] [id number] [place] [address] Apr, [facility] [place] [facility] [address] [id number] [place] [id number], [place] [address] Apr, [facility] [place] [facility] [address] [id number] [place] [address] 31 Mar, 2012 [facility] [place] [facility] [address] [id number] [place] [address] 31 Mar, 2012 [facility] [place] [facility] [address] [id number] [place] [address] 18 Feb, 2012 [facility] [place] [facility] [address] [id number] [place] [address] 17 Feb, 2012 [facility] [place] [facility] [address] [facility] [id number] [place] [address] 13 Feb, 2012 [facility] [place] [facility] [address] [id number] [place] [address] 15 Jan, 2012 [facility] [place] [facility] [address] [id number] [place] [address] 14 Jan, 2012 [facility] [place] [facility] [address] [id number] [place] [address] Jan, [facility] [place] [facility] [address] [facility] [id number] [place] [address] Jan, [facility] [place] [facility] [address] [id number] [place] [address] Dec, [facility] [place] [facility] [address] [id number] [place] [address] Dec, [facility] [place] [facility] [address] [id number] [place] [address] Dec, [facility] [place] [facility] [address] [id number] [place] [address] Dec, [facility] [address] [id number] [place] [address] Dec, [facility] [address] [id number] [place] [address] Nov, [facility] [address] [id number] [place] [address] Nov, [facility] [facility] [address] [id number] [place] [address] Nov, [facility] [address] [id number] [place] [address] Nov, [facility] [address] [id number] [place] [address] October, [facility] [address] [id number] [place] [address] October, [facility] [place] [facility] [address] [id number] [place] [address] October, [facility] [place] [facility] [address] [id number] [place] [address] October, [facility] [place] [facility] [address] [id number] [place] [address] October, [facility] [place] [facility] [address] [id number] [place] [address] Sep, [facility] [place] [facility] [address] [id number] [place] [address] Sep, [facility] [place] [facility] [address] [id number] [place] [address] 12 Sep, 2011 [facility] [place] [facility] [address] [id number] [place] [address] Sep, [facility] [place] [facility] [address] [id number] [place] [address] 03 Sep, 2011 [facility] [place] [facility] [address] [id number] [place] [address] 29 Aug, 2011 [facility] [place] [facility] [address] [id number] [place] [address] 28 Aug, 2011 [facility] [place] [facility] [address] [id number] [place] [address] 27 Aug, 2011 [facility] [place] [facility] [address] [id number] [place] [address] 26 Aug, 2011 [facility] [place] [facility] [address] [id number] [place] [address] 23 Aug, 2011 [facility] [place] [facility] [address] [id number] [place] [address] 20 Aug, 2011 [facility] [place] [facility] [address] [id number] [place] [address] 19 Aug, 2011 [facility] [place] [facility] [address] [id number] [place] [address] 17 Aug, 2011 [facility] [place] [facility] [address] [id number] [place] [address] 18 Jun, 2011 [facility] [place] [facility] [address] [id number] [place] [address] Jun, [facility] [place] [facility] [address] [id number] [place] [address] Jun, [facility] [place] [facility] [address] [id number] [place] [address] 10 Jun, 2011 [facility] [place] [facility] [address] [id number] [place] [address] Jun, [facility] [place] [facility] [id number] [place] [address] May, [facility] [id number] [place] [address] Apr, [facility] [id number], [place] [address] October, [facility] [id number] [place] [address] May, [facility] [id number] [address] May, [facility] [id number] [place] [address] Apr, [facility] [id number], [place] [address] Jan, [facility] [id number], [place] [address] Dec, [facility] [id number] [place] [address] Sep, [facility] [id number] [place] [address] Sep, [facility] [id number] [place] [address] Jul, [facility] [id number] [place] [address] May, [facility] [id number] [address] Jan, IMMUNIZATIONS No Known Immunizations SOCIAL HISTORY Never Assessed REASON FOR VISIT Pain (acute) side WB-MA, PT has pain on the right side of her body, towards the backside of her ribs PLAN OF CARE VITAL SIGNS Height 64 in 2017-11-09 Weight 244 lbs 2017-11-09 Temperature 97 degrees Fahrenheit 2017-11-09 Heart Rate 78 bpm 2017-11-09 Respiratory Rate 20 2017-11-09 BMI 41.88 kg/m2 2017-11-09 Blood pressure systolic 120 mmHg 2017-11-09 Blood pressure diastolic 78 mmHg 2017-11-09 MEDICATIONS Medication Instructions Dosage Frequency Start Date End Date Duration Status Wellbutrin XL 150 MG Orally Once a day 1 tablet in the morning 24h Active Ibuprofen 800 MG Orally Three times a day 1 tablet 8h Active PredniSONE 20 mg Orally Once a day 2 tablets 24h Nov, Nov, 05 days Active Cyclobenzaprine HCl 5 MG TAKE ONE TABLET BY MOUTH TWICE DAILY 30 Active Albuterol Sulfate (2.5 MG/3ML) 0.083% USE ONE VIAL (3 ML) PER NEBULIZER FOUR TIMES DAILY NEEDED FOR WHEEZING OR COUGH 6 Active Losartan Potassium 25 MG 1 tablet 24h Active Omeprazole 20 MG TAKE ONE CAPSULE BY MOUTH ONCE DAILY 30 Active Advair Diskus 250-50 MCG/DOSE Inhalation Twice a day 1 puff 12h Nov, 60 days Active Proventil HFA 108 (90 Base) MCG/ACT Inhalation every 4 hrs 2 puffs as needed 4h Feb, 30 days Active Spiriva Respimat 1.25 MCG/ACT Inhalation Once a day 2 puffs 24h Aug, 90 days Active Hydrochlorothiazide 50 mg Orally Once a day 1 tablet 24h 30 Active Tramadol HCl 50 MG Orally 1 [...]
--- OUTSIDE RECORDS SUMMARY | 2018-05-04 07:25 | XMS REPORT ---
Author Author JENNIFER CANCINO Organization [facility] Address [address] [place] [address] Care Team Providers Care Supervisor Diagnostic Name Role Phone JENNIFER CANCINO Unavailable PROBLEMS Type Condition ICD9-CM Code ITU13-GM Code Onset Dates Condition Status SNOMED Code Problem Mild persistent asthma without complication J45.30 Active 004526663 Problem Edema, unspecified type R60.9 Active 316456344 Problem Gastroesophageal reflux disease with esophagitis K21.0 Active 048495268 Problem Essential hypertension I10 Active 81936149 Problem Moderate persistent asthma with exacerbation J45.41 Active 055784711 Problem Other chronic pain G89.29 Active 92264042 Problem Esophageal abnormality K22.9 Active 45375104 Problem Hammer toe of right foot M20.41 Active 259352055 Problem Abnormal EKG R94.31 Active 990477188 Problem Right upper quadrant abdominal pain R10.11 Active 003331806 ALLERGIES No Information ENCOUNTERS Encounter Location Date Diagnosis [place] [id number] [place] [address] 80035- 1291 Dec, BMI 40.0-44.9, adult Z68.41 ; Other chronic pain G89.29 and Pain in left hip M25.552 [place] [id number] [place] [address] 91662- 2287 Nov, Abscess L02.91 [facility] [id number] [place] [address] 89481- 8472 Nov, Moderate persistent asthma with exacerbation J45.41 [place] [id number] [place] [address] 67611- 0404 Nov, Low back pain M54.5 and Other chronic pain G89.29 [place] [id number] [place] [address] 95849- 1123 October, Abscess L02.91 [facility] [id number] [place] [address] 76436- 2281 October, Cutaneous abscess of back excluding buttocks L02.212 and BMI 40.0-44.9, adult Z68.41 [place] [id number] [place] [address] 67484- 7934 October, [place] [address] 74128- 6403 October, [place] [id number] [place] [address] 63107- 6167 Sep, [place] [address] 86451- 0283 Sep, Abscess L02.91 [place] [address] 65237- 3997 Sep, Right upper quadrant abdominal pain R10.11 ; Mild persistent asthma without complication J45.30 and BMI 40.0-44.9, adult Z68.41 [place] [address] 58833- 6616 Aug, Abscess L02.91 and BMI 40.0-44.9, adult Z68.41 [place] [id number] [place] [address] 88483- 2668 Aug, Edema, unspecified type R60.9 [place] [id number] [place] [address] 97346- 2009 Aug, Right upper quadrant abdominal pain R10.11 ; Abnormal EKG R94.31 ; Esophageal abnormality K22.9 and BMI 40.0-44.9, adult Z68.41 [place] [id number] [place] [address] 95456- 5722 Aug, Hammer toe of right foot M20.41 and Onychomycosis B35.1 [facility] [address] [address] Aug, Myalgia M79.1 [place] [address] 05199- 6362 Aug, [place] [address] 70727- 0966 Aug, Annual physical exam Z00.00 ; BMI 40.0-44.9, adult Z68.41 ; Mild persistent asthma without complication J45.30 ; Gastroesophageal reflux disease with esophagitis K21.0 ; Acute right-sided thoracic back pain M54.6 ; Trouble breathing R06.89 and Neck pain M54.2 [place] [address] 57668- 9942 28 Jul, 2017 Mild persistent asthma without complication J45.[address] 82259- 1228 Jul, Edema, unspecified type R60.[address] 56653- 7052 Jun, Edema, unspecified type R60.[address] 91547- 3010 Jun, Moderate persistent asthma with exacerbation J45.[address] 43750- 7056 May, Edema, unspecified type R60.9 [place] [address] 35500- 8387 May, Moderate persistent asthma with exacerbation J45.41 and Hammer toe of right foot M20.[address] 15510- 7403 04 May, 2017 Moderate persistent asthma without complication J45.40 ; Dysfunction of left eustachian tube H69.82 and BMI 45.0-49.9, adult Z68.[address] [place] [address]- 0085 Apr, Edema, unspecified type R60.9 [facility] [id number] [place] [address] 45879- 6031 Mar, Edema, unspecified type R60.9 [facility] [id number] [place] [address] 59412- 8918 Feb, Edema, unspecified type R60.9 [facility] [id number] [place] [address] 28630- 9373 Jan, Edema, unspecified type R60.9 [place] [address] 84922- 2971 Jan, Mild persistent asthma without complication J45.30 [place] [id number] [place] [address] 39091- 3915 Dec, Edema, unspecified type R60.9 [place] [id number] [place] [address] 97521- 2140 Nov, Edema, unspecified type R60.9 and Essential hypertension I10 [place] [id number] [place] [address] 87950- 3947 October, Pain in left knee M25.562 [facility] [id number] [place] [address] 11183- 0635 October, Pain in left knee M25.562 [facility] [id number] [place] [address] 92956- 8783 October, [facility] [id number] [place] [address] 35404- 7590 Sep, [facility] [id number] [place] [address] 84825- 0670 Sep, Mild persistent asthma without complication J45.30 [facility] [id number] [place] [address] 32811- 0082 Sep, Pain in left knee M25.562 [facility] [address] [place] [address] 58443- 4686 23 Aug, 2016 Acute nasopharyngitis J00 and Seasonal allergic rhinitis due to pollen J30.1 [facility] [id number] [place] [address] 03063- 1600 16 Aug, 2016 [facility] [id number] [place] [address] 66443- 7681 13 Aug, 2016 Arthralgia, unspecified joint M25.50 and Pain in left knee M25.562 [facility] [id number] [place] [address] 64833- 2716 08 Aug, 2016 Mild persistent asthma without complication J45.30 [facility] [id number] [place] [address] 13841- 3678 28 Jul, 2016 Mild persistent asthma without complication J45.30 [facility] [id number] [place] [address] 59230- 1798 Jul, Pain in left knee M25.562 [facility] [id number] [place] [address] 99601- 7404 Jun, [facility] [address] [place] [address] 82545 -8197 Jun, [facility] [id number] [place] [address] 98718- 9090 Jun, Mild persistent asthma without complication J45.30 [facility] [id number] [place] [address] 97388- 8926 May, [facility] [id number] [place] [address] 82337- 0458 Apr, Restrictive lung disease J98.4 [facility] [id number] [place] [address] 68410- 3321 Apr, [facility] [id number] [place] [address] 29150- 2359 Apr, Mild persistent asthma without complication J45.30 [facility] [address] [place] [address] Mar, Sore throat J02.9 and Post-nasal drainage R09.82 [facility] [address] [address]- 0345 Mar, [facility] [id number] [place] [address] 71995- 6628 Feb, [facility] [id number] [place] [address] 48163- 2887 Feb, Mild persistent asthma without complication J45.30 [facility] [id number] [place] [address] 35700- 8828 Feb, Arthralgia, unspecified joint M25.50 [facility] [id number] [place] [address] 76569- 0986 Feb, Edema, unspecified type R60.9 ; Arthralgia, unspecified joint M25.50 ; Mild persistent asthma without complication J45.30 ; Essential hypertension I10 ; Gastroesophageal reflux disease without esophagitis K21.9 and Major depressive disorder with single episode, remission status unspecified F32.9 [facility] [address] [address]- 4524 Jan, Edema, unspecified type R60.9 ; Essential hypertension I10 ; Mild persistent asthma without complication J45.30 ; Gastroesophageal reflux disease with esophagitis K21.0 ; Arthralgia, unspecified joint M25.50 and Major depressive disorder with single episode, remission status unspecified F32.9 [facility] [address] [place] [address] 74479- 5161 Jan, [facility] [id number] [place] [address] 80959- 0367 Dec, [facility] [address] [place] [address] 90725- 3029 Dec, [facility] [address] [address]- 9923 Dec, [facility] [address] [place] [address]- 8148 Nov, Bilateral edema of lower extremity R60.0 [facility] [address] [place] [address]- 8066 Nov, Bilateral edema of lower extremity R60.0 [facility] [address] [place] [address] -2096 Nov, [facility] [address] [place] [address] 53037- 8094 Nov, [facility] [address] [address]- 6136 October, [facility] [address] [place] [address] 20334- 1332 Sep, [facility] [address] [address] 2548 Aug, Acute sinusitis J01.90 [facility] [address] [address]- 8666 Aug, [facility] [address] [address]- 4087 Aug, [facility] [address] [place] [address] 2546 Jul, [facility] [address] [address] 2546 Jul, Pharyngitis J02.9 [facility] [address] [address]- 2546 05 Jul, 2015 [facility] [address] [place] [address]- 2546 Jun, Pain in left knee M25.562 [facility] [id number] [place] [address] 36514- 4865 Jun, [facility] [id number] [place] [address] 98959 -6597 May, Upper respiratory symptom R09.89 [facility] [id number] [place] [address] 14137- 6853 May, [facility] [id number] [place] [address] 04135- 1218 Apr, Costochondritis M94.0 and Knee pain, left M25.562 [facility] [id number] [place] [address] 01037- 4846 Apr, [facility] [id number] [place] [address] 18406- 9683 Mar, Eustachian tube dysfunction, left H69.82 [facility] [id number] [place] [address] 09795- 2652 Mar, [facility] [id number] [place] [address] 39014- 6596 Mar, [facility] [id number] [place] [address] 78702- 1865 Mar, [facility] [id number] [place] [address] 65058- 7664 Feb, [facility] [id number] [place] [address] 05794- 4925 Feb, [facility] [id number] [place] [address] 08700- 1309 Feb, [facility] [id number] [place] [address] 81684- 3040 Jan, Asthma 493.90 [facility] [id number] [place] [address] 53248- 0026 Dec, [facility] [id number] [place] [address] 70711- 3796 Dec, [facility] [address] [address]- 9386 Dec, [facility] [address], [place] [address]- 3106 Dec, [facility] [address], [place] [address]- 2386 Dec, Asthma, unspecified, unspecified status 493.90 [facility] [address], [place] [address]- 0181 Nov, [facility] [address], [place] [address]- 8196 Nov, Asthma, unspecified, unspecified status 493.90 [facility] [address], [place] [address]- 7226 October, Asthma, unspecified, unspecified status 493.90 [facility] [address], [place] [address]- 6028 October, [facility] [address] 8473 October, Contact dermatitis 692.9 and Candidiasis of skin 112.3 [facility] [address], [place] [address]- 4186 Sep, [facility] [address], [place] [address]- 7677 Sep, [facility] [address], [place] [address]- 5835 Aug, [facility] [address] [place] [address]- 6196 Aug, [facility] [id number] [address]- 1146 Aug, [facility] [address], [place] [address]- 5982 Aug, [facility] [place] [facility] [address] [id number] [place] [address]- 2380 Jul, [facility] [place] [facility] [address] [id number] [place] [address]- 9546 Jul, [facility] [place] [facility] [address] [facility] [id number] [place] [address]- 1035 Jun, [facility] [place] [facility] [address] [id number] [place] [address]- 7618 Jun, [facility] [place] [facility] [address] [id number] [place] [address]- 0290 May, [facility] [place] [facility] [address] [id number] [place] [address]- 2138 May, [facility] [place] [facility] [address] [id number] [place] [address]- 2857 May, [facility] [place] [facility] [address] [id number] [place] [address]- 6839 May, [facility] [place] [facility] [address] [id number] [place] [address]- 0723 May, [facility] [place] [facility] [address] [id number] [place] [address]- 0739 May, [facility] [place] [facility] [address] [id number] [place] [address]- 2213 Apr, [facility] [place] [facility] [address] [id number] [place] [address]- 0717 Apr, [facility] [place] [facility] [address] [id number] [place] [address]- 6164 Feb, [facility] [place] [facility] [address] [id number] [place] [address]- 7634 15 Feb, 2014 [facility] [place] [facility] [address] [id number] [place] [address]- 4403 Feb, [facility] [place] [facility] [address] [id number] [place] [address]- 8223 Feb, [facility] [place] [facility] [address] [id number] [place] [address]- 8599 Feb, [facility] [place] [facility] [address] [id number] [place] [address]- 4380 Feb, [facility] [place] [facility] [address] [id number] [place] [address]- 8365 Jan, [facility] [place] [facility] [address] [id number] [place] [address]- 3521 Jan, [facility] [place] [facility] [address] [id number] [place] [address]- 4298 Jan, [facility] [place] [facility] [address] [id number] [place] [address]- 4966 Jan, [facility] [place] [facility] [address] [id number] [place] [address]- 2912 Jan, [facility] [place] [facility] [address] [id number] [place] [address]- 8736 Jan, [facility] [place] [facility] [address] [id number] [place] [address]- 6849 Dec, [facility] [place] [facility] [address] [id number] [place] [address]- 3633 Dec, [facility] [place] [facility] [address] [id number] [place] [address]- 5083 Nov, [facility] [place] [facility] [address] [id number] [place] [address]- 5338 Nov, [facility] [place] [facility] [address] [id number] [place] [address]- 7176 Nov, [facility] [place] [facility] [address] [id number] [place] [address]- 6993 Nov, [facility] [place] [facility] [address] [id number] [place] [address]- 4044 Nov, [facility] [place] [facility] [address] [id number] [place] [address]- 7291 Nov, [facility] [place] [facility] [address] [id number] [place] [address]- 9115 Nov, [facility] [place] [facility] [address] [id number] [place] [address]- 4609 Nov, [facility] [place] [facility] [address] [id number] [place] [address]- 8095 Nov, [facility] [place] [facility] [address] [id number] [place] [address]- 2656 Nov, [facility] [place] [facility] [address] [id number] [place] [address]- 3246 Nov, [facility] [place] [facility] [address] [id number] [place] [address]- 9940 Nov, [facility] [place] [facility] [address] [id number] [place] [address]- 2341 Nov, [facility] [place] [facility] [address] [id number] [place] [address]- 1333 October, [facility] [place] [facility] [address] [id number] [place] [address]- 5750 October, [facility] [place] [facility] [address] [id number] [place] [address]- 0929 October, [facility] [place] [facility] [address] [id number] [place] [address]- 4593 October, [facility] [place] [facility] [address] [id number] [place] [address]- 1371 Sep, [facility] [place] [facility] [address] [id number] [place] [address]- 5144 Sep, [facility] [place] [facility] [address] [id number] [place] [address]- 4612 Sep, [facility] [place] [facility] [address] [id number], [place] [address]- 8590 Sep, [facility] [place] [facility] [address] [id number] [place] [address]- 2837 Aug, [facility] [place] [facility] [address] [id number] 6889 Aug, [facility] [place] [facility] [address] [facility] [id number] [place] [address]- 0595 Jul, [facility] [place] [facility] [address] [id number] [place] [address]- 8947 Jul, [facility] [place] [facility] [address] [facility] [id number] [place] [address]- 5660 Jun, [facility] [place] [facility] [address] [id number] [place] [address]- 1658 Jun, [facility] [place] [facility] [address] [facility] [id number], [place] [address]- 6774 Mar, [facility] [place] [facility] [address] [id number] [place] [address]- 3245 Mar, [facility] [place] [facility] [address] [facility] [id number] [place] [address]- 1147 Mar, [facility] [place] [facility] [address] [facility] [id number] [place] [address]- 3101 Mar, [facility] [place] [facility] [address] [facility] [id number], [place] [address]- 3430 Mar, [facility] [place] [facility] [address] [id number], [place] [address]- 1766 Feb, [facility] [place] [facility] [address] [id number], [place] [address]- 8866 Feb, [facility] [place] [facility] [address] [facility] [id number], [place] [address]- 8592 Dec, [facility] [place] [facility] [address] [facility] [id number], [place] [address]- 7545 Nov, [facility] [place] [facility] [address] [id number] [place] [address]- 7744 October, [facility] [place] [facility] [address] [id number] [place] [address]- 6214 Sep, [facility] [place] [facility] [address] [id number] [place] [address]- 2546 Sep, [facility] [place] [facility] [address] [id number] [place] [address]- 5073 Aug, [facility] [place] [facility] [address] [id number] [place] [address]- 9229 Aug, [facility] [place] [facility] [address] [id number] [place] [address]- 5905 Aug, [facility] [place] [facility] [address] [id number] [place] [address]- 1018 Aug, [facility] [place] [facility] [address] [id number] [place] [address]- 5453 Jun, [facility] [place] [facility] [address] [id number] [place] [address]- 6201 Jun, [facility] [place] [facility] [address] [id number] [place] [address]- 3019 Jun, [facility] [place] [facility] [address] [id number] [place] [address]- 1407 May, [facility] [place] [facility] [address] [id number] [place] [address]- 2313 May, [facility] [place] [facility] [address] [id number] [place] [address] Apr, [facility] [place] [facility] [address] [id number] [place] [address] Apr, [facility] [place] [facility] [address] [id number] [place] [address] Apr, [facility] [place] [facility] [address] [id number] [place] [address] Apr, [facility] [place] [facility] [address] [id number] [place] [address] Apr, [facility] [place] [facility] [address] [id number] [place] [address] Apr, [facility] [place] [facility] [address] [id number] [place] [address] Apr, [facility] [place] [facility] [address] [id number] [place] [address] Mar, [facility] [place] [facility] [address] [id number] [place] [address] Mar, [facility] [place] [facility] [address] [id number] [place] [address] 18 Feb, 2012 [facility] [place] [facility] [address] [id number] [place] [address] 17 Feb, 2012 [facility] [place] [facility] [address] [id number] [place] [address] 13 Feb, 2012 [facility] [place] [facility] [address] [id number] [place] [address] 15 Jan, 2012 [facility] [place] [facility] [address] [id number] [place] [address] Jan, [facility] [place] [facility] [address] [id number], [place] [address] Jan, [facility] [place] [facility] [address] [id number], [place] [address] Jan, [facility] [place] [facility] [address] [id number] [place] [address] Dec, [facility] [place] [facility] [address] [id number] [place] [address] Dec, [facility] [place] [facility] [address] [id number] [place] [address] Dec, [facility] [place] [facility] [address] [id number] [place] [address] 17 Dec, 2011 [facility] [place] [facility] [address] [id number] [place] [address] 10 Dec, 2011 [facility] [place] [facility] [address] [id number] [place] [address] 14 Nov, 2011 [facility] [place] [facility] [address] [id number] [place] [address] 14 Nov, 2011 [facility] [place] [facility] [address] [id number] [place] [address] Nov, [facility] [place] [facility] [address] [id number] [place] [address] Nov, [facility] [place] [facility] [address] [id number] [place] [address] October, [facility] [address] [id number] [place] [address] October, [facility] [place] [facility] [address] [id number] [place] [address] October, [facility] [place] [facility] [address] [id number] [place] [address] October, [facility] [place] [facility] [address] [id number] [place] [address] October, [facility] [place] [facility] [address] [id number] [place] [address] Sep, [facility] [place] [facility] [address] [id number] [place] [address] 20 Sep, 2011 [facility] [place] [facility] [address] [id number] [place] [address] Sep, [facility] [place] [facility] [address] [id number] [place] [address] Sep, [facility] [place] [facility] [address] [id number] [place] [address] Sep, [facility] [place] [facility] [address] [id number] [place] [address] 29 Aug, 2011 [facility] [address] [id number] [place] [address] 28 Aug, 2011 [facility] [place] [facility] [address] [id number] [place] [address] 27 Aug, 2011 [facility] [address] [id number] [place] [address] 26 Aug, 2011 [facility] [place] [facility] [address] [id number] [place] [address] 23 Aug, 2011 [facility] [address] [id number] [place] [address] 20 Aug, 2011 [facility] [address] [id number] [place] [address] 19 Aug, 2011 [facility] [address] [id number] [place] [address] 17 Aug, 2011 [facility] [address] [id number] [place] [address] 18 Jun, 2011 [facility] [address] [id number] [place] [address] Jun, [facility] [address] [id number] [place] [address] 11 Jun, 2011 [facility] [address] [id number] [place] [address] Jun, [facility] [place] [facility] [address] [id number] [place] [address] 06 Jun, 2011 [facility] [place] [facility] [address] [id number] [place] [address] 20 May, 2011 [facility] [place] [facility] [address] [id number] [place] [address] 29 Apr, 2011 [facility] [address] [id number], [place] [address] October, [facility] [id number] [address] May, [facility] [id number] [address] May, [facility] [id number] [place] [address] Apr, [facility] [id number] [place] [address] Jan, [facility] [id number] [address] Dec, [facility] [id number] [address] Sep, [facility] [id number] [address] Sep, [facility] [id number] [place] [address] Jul, [facility] [id number], [place] [address] May, [facility] [id number] [address] Jan, IMMUNIZATIONS No Known Immunizations SOCIAL HISTORY [...]
--- OUTSIDE RECORDS SUMMARY | 2018-05-04 07:25 | XMS REPORT ---
Author Author JENNIFER CANCINO Organization [facility] Address [address] [place] [address] Care Team Providers Care Renewals Manager Name Role Phone JENNIFER CANCINO Unavailable PROBLEMS Type Condition ICD9-CM Code KPO85-UN Code Onset Dates Condition Status SNOMED Code Problem Mild persistent asthma without complication J45.30 Active 611383537 Problem Edema, unspecified type R60.9 Active 151428166 Problem Gastroesophageal reflux disease with esophagitis K21.0 Active 649706984 Problem Essential hypertension I10 Active 30464022 Problem Moderate persistent asthma with exacerbation J45.41 Active 589817420 Problem Other chronic pain G89.29 Active 31710614 Problem Esophageal abnormality K22.9 Active 72582735 Problem Hammer toe of right foot M20.41 Active 206778346 Problem Abnormal EKG R94.31 Active 256739473 Problem Right upper quadrant abdominal pain R10.11 Active 722621874 ALLERGIES Substance Reaction Event Type Date Status Naprosyn itching Drug Allergy Nov, Active Micardis Unknown Drug Allergy Nov, Active Hydrocodone Bitartrate itching Drug Allergy Nov, Active Celebrex swelling Drug Allergy Nov, Active Bactrim spots/rash Drug Allergy Nov, Active Doxycycline scalp rash Drug Allergy Nov, Active ENCOUNTERS Encounter Location Date Diagnosis [facility] [id number] [place] [address] 78750- 6375 Dec, BMI 40.0-44.9, adult Z68.41 ; Other chronic pain G89.29 and Pain in left hip M25.552 [place] [id number] [place] [address] 65851- 3821 Nov, Abscess L02.91 [place] [id number] [place] [address] 87541- 5989 Nov, Moderate persistent asthma with exacerbation J45.41 [place] [address] [place] [id number] [place] [address] 09980- 5836 Nov, Low back pain M54.5 and Other chronic pain G89.29 [place] [address] [id number] [place] [address] 12315- 3702 October, Abscess L02.91 [place] [address] [id number] [place] [address] 36160- 9915 October, Cutaneous abscess of back excluding buttocks L02.212 and BMI 40.0-44.9, adult Z68.41 [place] [address] [id number] [place] [address] 35931- 4515 October, [place] [address] [id number] [place] [address] 65929- 0007 October, [place] [address] [id number] [place] [address] 90750- 3684 Sep, [place] [address] [id number] [place] [address] 40485- 9447 Sep, Abscess L02.91 [place] [address] [id number] [place] [address] 84057- 6980 Sep, Right upper quadrant abdominal pain R10.11 ; Mild persistent asthma without complication J45.30 and BMI 40.0-44.9, adult Z68.41 [place] [address] [id number] [place] [address] 96280- 8595 Aug, Abscess L02.91 and BMI 40.0-44.9, adult Z68.41 [place] [address] [id number] [place] [address] 32510- 7618 Aug, Edema, unspecified type R60.9 [place] [address] [id number] [place] [address] 54015- 8725 Aug, Right upper quadrant abdominal pain R10.11 ; Abnormal EKG R94.31 ; Esophageal abnormality K22.9 and BMI 40.0-44.9, adult Z68.41 [place] [id number] [place] [address] 15454- 2575 Aug, Hammer toe of right foot M20.41 and Onychomycosis B35.1 [facility] [address] [address] Aug, Myalgia M79.1 [place] [address] [place] [id number] [place] [address] 43115- 0604 Aug, [place] [address] [id number] [place] [address] 79771- 6870 Aug, Annual physical exam Z00.00 ; BMI 40.0-44.9, adult Z68.41 ; Mild persistent asthma without complication J45.30 ; Gastroesophageal reflux disease with esophagitis K21.0 ; Acute right-sided thoracic back pain M54.6 ; Trouble breathing R06.89 and Neck pain M54.2 [place] [address] [place] [id number] [place] [address] 89010- 7619 Jul, Mild persistent asthma without complication J45.30 [place] [address] [place] [id number] [place] [address] 88710- 8359 Jul, Edema, unspecified type R60.9 [place] [address] [id number] [place] [address] 50666- 9042 Jun, Edema, unspecified type R60.9 [place] [address] [id number] [place] [address] 68582- 4142 Jun, Moderate persistent asthma with exacerbation J45.41 [place] [address] [place] [id number] [place] [address] 68009- 1614 May, Edema, unspecified type R60.9 [place] [address] [place] [id number] [place] [address] 52092- 3968 May, Moderate persistent asthma with exacerbation J45.41 and Hammer toe of right foot M20.41 [place] [address] [place] [address] [id number] [place] [address] 99779- 1993 May, Moderate persistent asthma without complication J45.40 ; Dysfunction of left eustachian tube H69.82 and BMI 45.0-49.9, adult Z68.42 [place] [address] [place] [id number] [place] [address] 91801- 5273 Apr, Edema, unspecified type R60.9 [place] [address] [place] [address] [id number] [place] [address] 93878- 2008 Mar, Edema, unspecified type R60.9 [place] [address] [place] [address] [id number] [place] [address] 12866- 2667 Feb, Edema, unspecified type R60.9 [place] [address] [place] [id number] [place] [address] 73798- 8670 Jan, Edema, unspecified type R60.9 [place] [address] [place] [id number] [place] [address] 62925- 9052 Jan, Mild persistent asthma without complication J45.30 [place] [address] [place] [id number] [place] [address] 74331- 9146 Dec, Edema, unspecified type R60.9 [place] [address] [id number] [place] [address] 54398- 8091 Nov, Edema, unspecified type R60.9 and Essential hypertension I10 [place] [address] [place] [address] [id number] [place] [address] 15562- 3756 October, Pain in left knee M25.562 [place] [address] [place] [id number] [place] [address] 69089- 8127 October, Pain in left knee M25.562 [place] [address] [place] [id number] [place] [address] 97564- 0049 October, [place] [address] [place] [id number] [place] [address] 13549- 6521 Sep, [facility] [id number] [place] [address] 76048- 6440 Sep, Mild persistent asthma without complication J45.30 [facility] [address] [place] [id number] [place] [address] 90820- 1472 Sep, Pain in left knee M25.562 [facility] [address] [id number] [place] [address] 91458- 0097 Aug, Acute nasopharyngitis J00 and Seasonal allergic rhinitis due to pollen J30.1 [facility] [address] [place] [address] [id number] [place] [address] 57030- 7093 16 Aug, 2016 [facility] [address] [place] [id number] [place] [address] 86051- 1723 Aug, Arthralgia, unspecified joint M25.50 and Pain in left knee M25.562 [place] [address] [place] [id number] [place] [address] 85345- 2887 Aug, Mild persistent asthma without complication J45.30 [facility] [address] [place] [id number] [place] [address] 68018- 9588 28 Jul, 2016 Mild persistent asthma without complication J45.30 [facility] [address] [place] [id number] [place] [address] 58736- 9647 13 Jul, 2016 Pain in left knee M25.562 [facility] [id number] [place] [address] 96518- 4750 Jun, [facility] [id number] [place] [address] 51195 -2778 Jun, [facility] [address] [place] [id number] [place] [address] 28457- 7889 Jun, Mild persistent asthma without complication J45.30 [facility] [address] [place] [address] [id number] [place] [address] 87250- 8000 May, [facility] [id number] [place] [address] 96002- 2101 Apr, Restrictive lung disease J98.4 [facility] [id number] [place] [address] 88491- 1271 Apr, [place] [address] [place] [id number] [place] [address] 11957- 5913 Apr, Mild persistent asthma without complication J45.30 [facility] [address] [id number] [place] [address] 06825 -1989 Mar, Sore throat J02.9 and Post-nasal drainage R09.82 [place] [address] [place] [id number] [place] [address] 14509- 6810 Mar, [place] [address] [place] [id number] [place] [address] 81022- 5478 Feb, [place] [address] [place] [id number] [place] [address] 10220- 3026 Feb, Mild persistent asthma without complication J45.30 [facility] [id number] [place] [address] 89165- 6844 Feb, Arthralgia, unspecified joint M25.50 [place] [address] [place] [id number] [place] [address] 59731- 7665 Feb, Edema, unspecified type R60.9 ; Arthralgia, unspecified joint M25.50 ; Mild persistent asthma without complication J45.30 ; Essential hypertension I10 ; Gastroesophageal reflux disease without esophagitis K21.9 and Major depressive disorder with single episode, remission status unspecified F32.9 [place] [id number] [place] [address] 52921- 2411 Jan, Edema, unspecified type R60.9 ; Essential hypertension I10 ; Mild persistent asthma without complication J45.30 ; Gastroesophageal reflux disease with esophagitis K21.0 ; Arthralgia, unspecified joint M25.50 and Major depressive disorder with single episode, remission status unspecified F32.9 [place] [address] [place] [id number] [place] [address] 16885- 3674 Jan, [facility] [address] [facility] [id number] [address]- 3349 Dec, [facility] [address] [facility] [id number] [place] [address] 137393- 2213 Dec, [facility] [address] [facility] [id number], [place] [address]- 7802 Dec, [facility] [address] [facility] [id number] [place] [address] 13296- 4543 Nov, Bilateral edema of lower extremity R60.0 [facility] [address] [facility] [id number] [place] [address] 83696- 3476 Nov, Bilateral edema of lower extremity R60.0 [facility] [address] [facility] [id number], [place] [address] -9675 Nov, [facility] [address] [id number] [place] [address] 32809- 3570 Nov, [facility] [address] [id number] [address]- 0528 October, [facility] [id number] [place] [address] 07548- 5295 Sep, [facility] [address], [place] [address]- 2066 Aug, Acute sinusitis J01.90 [facility] [address] [address]- 8895 Aug, [facility] [address] [facility] [id number], [place] [address]- 2484 Aug, [facility] [address], [place] [address]- 7621 Jul, [facility] [address] [id number] [address]- 7402 Jul, Pharyngitis J02.9 [facility] [address] [address]- 5194 Jul, [facility] [address] [place] [place] [id number] [place] [address] 07993- 2918 Jun, Pain in left knee M25.562 [facility] [address], [place] [address]- 6150 Jun, [facility] [address] [place] [id number] [place] [address] 59781 -4948 May, Upper respiratory symptom R09.89 [facility] [address] [place] [place] [id number] [place] [address] 14198- 3607 May, [facility] [address] [place] [id number] [place] [address] 31574- 6340 Apr, Costochondritis M94.0 and Knee pain, left M25.562 [facility] [address] [place] [id number] [place] [address] 37042- 4486 Apr, [facility] [address] [place] [id number] [place] [address] 08611- 6465 Mar, Eustachian tube dysfunction, left H69.82 [facility] [id number] [address]- 8683 Mar, [facility] [address], [place] [address]- 4674 Mar, [facility] [address] [place] [id number] [place] [address] 96379- 1142 Mar, [facility] [id number] [address]- 4918 Feb, [facility] [address] [id number] [place] [address] 18447- 6761 Feb, [facility] [address], [place] [address]- 9932 Feb, [facility] [id number] 8734 Jan, Asthma 493.90 [facility] [address] 1234 Dec, [facility] [address], [place] [address]- 7482 Dec, [facility] [id number] [place] [address] 35420- 3813 Dec, [facility] [address], [place] [address]- 6045 Dec, [facility] [id number] [place] [address] 72617- 8594 Dec, Asthma, unspecified, unspecified status 493.90 [facility] [address], [place] [address]- 8035 Nov, [facility] [address] [id number] [place] [address] 08488- 5230 Nov, Asthma, unspecified, unspecified status 493.90 [facility] [address] 1851 October, Asthma, unspecified, unspecified status 493.90 [facility] [address], [place] [address]- 9300 October, [facility] [address], [place] [address]- 4104 October, Contact dermatitis 692.9 and Candidiasis of skin 112.3 [facility] [address], [place] [address]- 8701 Sep, [facility] [id number] [place] [address] 43770- 2106 Sep, [facility] [id number], [place] [address]- 4952 Aug, [facility] [address] [id number] [place] [address]- 4208 Aug, [facility] [place] [facility] [address] [id number] [place] [address]- 5336 Aug, [facility] [place] [facility] [address] [id number] [place] [address]- 7696 Aug, [facility] [place] [facility] [address] [id number] [place] [address]- 9916 Jul, [facility] [place] [facility] [address] [id number] [place] [address]- 9711 Jul, [facility] [place] [facility] [address] [id number] [place] [address]- 7789 Jun, [facility] [place] [facility] [address] [id number] [place] [address]- 7257 Jun, [facility] [place] [facility] [address] [id number] [place] [address]- 2932 May, [facility] [place] [facility] [address] [id number] [place] [address]- 4855 May, [facility] [place] [facility] [address] [id number] [place] [address]- 4310 May, [facility] [place] [facility] [address] [id number] [place] [address]- 2097 May, [facility] [place] [facility] [address] [id number] [place] [address] 2546 May, [facility] [place] [facility] [address] [id number] [place] [address]- 2178 May, [facility] [place] [facility] [address] [id number] [place] [address]- 6772 Apr, [facility] [place] [facility] [address] [id number] [place] 1562 Apr, [facility] [place] [facility] [address] [id number] [place] [address]- 0837 15 Feb, 2014 [facility] [place] [facility] [address] [id number] [place] [address]- 2631 15 Feb, 2014 [facility] [place] [facility] [address] [id number] [place] [address]- 2763 Feb, [facility] [place] [facility] [address] [id number] [place] [address]- 5344 Feb, [facility] [place] [facility] [address] [id number] [place] [address]- 6839 05 Feb, 2014 [facility] [place] [facility] [address] [id number] [place] [address]- 3636 05 Feb, 2014 [facility] [place] [facility] [address] [id number] [place] [address]- 6500 Jan, [facility] [place] [facility] [address] [id number] [place] [address]- 1656 Jan, [facility] [place] [facility] [address] [id number] [place] [address]- 7540 Jan, [facility] [place] [facility] [address] [id number] [place] [address]- 7088 Jan, [facility] [place] [facility] [address] [id number] [place] [address]- 1825 Jan, [facility] [place] [facility] [address] [id number] [place] [address]- 5891 Jan, [facility] [place] [facility] [address] [id number] [place] [address]- 9289 Dec, [facility] [place] [facility] [address] [id number] [place] [address]- 8249 Dec, [facility] [place] [facility] [address] [id number] [place] [address]- 5544 Nov, [facility] [place] [facility] [address] [id number] [place] 0068 Nov, [facility] [place] [facility] [address] [id number] [place] [address]- 0134 Nov, [facility] [place] [facility] [address] [id number] [place] [address]- 0021 Nov, [facility] [place] [facility] [address] [id number] [place] [address]- 8444 Nov, [facility] [place] [facility] [address] [id number] [place] [address]- 4300 Nov, [facility] [place] [facility] [address] [id number] [place] [address]- 1805 Nov, [facility] [place] [facility] [address] [id number] [place] [address]- 7419 Nov, [facility] [place] [facility] [address] [id number] [place] [address]- 2557 Nov, [facility] [place] [facility] [address] [id number] [place] [address]- 6203 Nov, [facility] [place] [facility] [address] [id number] [place] [address]- 2216 Nov, [facility] [place] [facility] [address] [id number] [place] [address]- 1249 Nov, [facility] [place] [facility] [address] [id number] [place] [address]- 2851 Nov, [facility] [place] [facility] [address] [id number] [place] [address]- 1289 October, [facility] [place] [facility] [address] [id number] [place] [address]- 5719 October, [facility] [place] [facility] [address] [id number] [place] [address]- 3663 October, [facility] [place] [facility] [address] [id number] [place] [address]- 6505 October, [facility] [place] [facility] [address] [id number] [place] [address]- 4657 Sep, [facility] [place] [facility] [address] [id number] [place] [address]- 5529 10 Sep, 2013 [facility] [place] [facility] [address] [id number] [place] [address]- 6744 Sep, [facility] [place] [facility] [address] [id number] [place] [address]- 3664 Sep, [facility] [place] [facility] [address] [id number] [place] [address]- 1479 Aug, [facility] [place] [facility] [address] [id number] [place] [address]- 0591 Aug, [facility] [place] [facility] [address] [id number] [place] [address]- 7464 Jul, [facility] [place] [facility] [address] [id number] [place] [address]- 8317 Jul, [facility] [place] [facility] [address] [id number] [place] [address]- 9992 Jun, [facility] [place] [facility] [address] [id number] [place] [address]- 6674 Jun, [facility] [place] [facility] [address] [id number] [place] [address] Mar, [facility] [place] [facility] [address] [id number] [place] [address] Mar, [facility] [place] [facility] [address] [id number] [place] [address] Mar, [facility] [place] [facility] [address] [id number] [place] [address] Mar, [facility] [place] [facility] [address] [id number] [place] [address] Mar, [facility] [place] [facility] [address] [id number] [place] [address] Feb, [facility] [place] [facility] [address] [id number] [place] [address] Feb, [facility] [address] [id number] [place] [address] Dec, [facility] [address] [id number] [place] [address] Nov, [facility] [address] [id number] [place] [address] October, [facility] [address] [id number] [place] [address] Sep, [facility] [address] [id number] [place] [address] Sep, [facility] [address] [id number] [place] [address] Aug, [facility] [address] [id number] [place] [address] Aug, [facility] [address] [id number] [place] [address] Aug, [facility] [address] [id number] [place] [address] Aug, [facility] [address] [id number] [place] [address] Jun, [facility] [address] [id number], [place] [address] Jun, [facility] [place] [facility] [address] [id number], [place] [address] Jun, [facility] [place] [facility] [address] [id number] [place] [address] May, [facility] [place] [facility] [address] [id number] [place] [address] May, [facility] [place] [facility] [address] [id number] [place] [address] Apr, [facility] [address] [id number] [place] [address] Apr, [facility] [place] [facility] [address] [id number] [place] [address] Apr, [facility] [place] [facility] [address] [id number] [place] [address] Apr, [facility] [place] [facility] [address] [id number] [place] [address] Apr, [facility] [place] [facility] [address] [id number] [place] [address] Apr, [facility] [place] [facility] [address] [id number] [place] [address], [place] [address] Apr, [facility] [place] [facility] [address] [id number] [place] [address] 31 Mar, 2012 [facility] [place] [facility] [address] [id number] [place] [address] 31 Mar, 2012 [facility] [place] [facility] [address] [id number] [place] [address] 18 Feb, 2012 [facility] [place] [facility] [address] [id number] [place] [address] 17 Feb, 2012 [facility] [place] [facility] [address] [facility] [id number] [place] [address] 13 Feb, 2012 [facility] [place] [facility] [address] [id number] [place] [address] 15 Jan, 2012 [facility] [place] [facility] [address] [id number] [place] [address] 14 Jan, 2012 [facility] [place] [facility] [address] [id number] [place] [address] Jan, [facility] [place] [facility] [address] [facility] [id number] [place] [address] Jan, [facility] [place] [facility] [address] [id number] [place] [address] Dec, [facility] [place] [facility] [address] [id number] [place] [address] Dec, [facility] [place] [facility] [address] [id number] [place] [address] Dec, [facility] [place] [facility] [address] [id number] [place] [address]- [address] Dec, [facility] [address] [id number] [place] [address] Dec, [facility] [address] [id number] [place] [address] Nov, [facility] [address] [id number] [place] [address] Nov, [facility] [address] [id number] [place] [address] Nov, [facility] [address] [id number] [place] [address] Nov, [facility] [address] [id number] [place] [address] October, [facility] [address] [id number] [place] [address] October, [facility] [place] [facility] [address] [id number] [place] [address] October, [facility] [place] [facility] [address] [id number] [place] [address] October, [facility] [place] [facility] [address] [id number] [place] [address] October, [facility] [place] [facility] [address] [id number] [place] [address] Sep, [facility] [place] [facility] [address] [id number] [place] [address] Sep, [facility] [place] [facility] [address] [id number] [place] [address] 12 Sep, 2011 [facility] [place] [facility] [address] [id number] [place] [address] Sep, [facility] [place] [facility] [address] [id number] [place] [address] 03 Sep, 2011 [facility] [place] [facility] [address] [id number] [place] [address] 29 Aug, 2011 [facility] [place] [facility] [address] [id number] [place] [address] 28 Aug, 2011 [facility] [place] [facility] [address] [id number] [place] [address] 27 Aug, 2011 [facility] [place] [facility] [address] [id number] [place] [address] 26 Aug, 2011 [facility] [place] [facility] [address] [id number] [place] [address] 23 Aug, 2011 [facility] [place] [facility] [address] [id number] [place] [address] 20 Aug, 2011 [facility] [place] [facility] [address] [id number] [place] [address] 19 Aug, 2011 [facility] [place] [facility] [address] [id number] [place] [address] 17 Aug, 2011 [facility] [place] [facility] [address] [id number] [place] [address] 18 Jun, 2011 [facility] [place] [facility] [address] [id number] [place] [address] Jun, [facility] [place] [facility] [address] [id number] [place] [address] Jun, [facility] [place] [facility] [address] [id number] [place] [address] 10 Jun, 2011 [facility] [place] [facility] [address] [id number] [place] [address] Jun, [facility] [place] [facility] [id number] [place] [address] May, [facility] [id number] [place] [address] Apr, [facility] [id number], [place] [address] October, [facility] [id number], [place] [address] May, [facility] [id number], [place] [address] May, [facility] [id number] [place] [address] Apr, [facility] [id number], [place] [address] Jan, [facility] [id number] [place] [address] Dec, [facility] [id number], [place] [address] Sep, [facility] [id number] [place] [address] Sep, [facility] [id number], [place] [address] Jul, [facility] [id number] [place] [address] May, [facility] [id number] [address] Jan, IMMUNIZATIONS No Known Immunizations SOCIAL HISTORY Never Assessed REASON FOR VISIT PALS PLAN OF CARE VITAL SIGNS MEDICATIONS Medication [...]
--- OUTSIDE RECORDS SUMMARY | 2018-05-04 07:26 | XMS REPORT ---
Author Author RADHA CARIAS Organization [facility] Address [address] [place] [address] Care Team Providers Care Ship Wirer Name Role Phone RADHA CARIAS Unavailable PROBLEMS Type Condition ICD9-CM Code [id number] Code Onset Dates Condition Status SNOMED Code Problem Mild persistent asthma without complication J45.30 Active 156406108 Problem Edema, unspecified type R60.9 Active 496105132 Problem Gastroesophageal reflux disease with esophagitis K21.0 Active 269902369 Problem Essential hypertension I10 Active 43760787 Problem Moderate persistent asthma with exacerbation J45.41 Active 497103761 Problem Other chronic pain G89.29 Active 05513134 Problem Esophageal abnormality K22.9 Active 90302857 Problem Hammer toe of right foot M20.41 Active 308135945 Problem Abnormal EKG R94.31 Active 169605415 Problem Right upper quadrant abdominal pain R10.11 Active 912849286 ALLERGIES Substance Reaction Event Type Date Status Naprosyn itching Drug Allergy October, Active Micardis Unknown Drug Allergy October, Active Hydrocodone Bitartrate itching Drug Allergy October, Active Celebrex swelling Drug Allergy October, Active Bactrim spots/rash Drug Allergy October, Active Doxycycline scalp rash Drug Allergy October, Active ENCOUNTERS Encounter Location Date Diagnosis [facility] [address] [id number], [place] [address] Dec, BMI 40.0-44.9, adult Z68.41 ; Other chronic pain G89.29 and Pain in left hip M25.552 [facility] [address] [id number], [place] [address] Nov, Abscess L02.91 [place] [facility] [id number] [id number], [place] [address] 0[address] Nov, Moderate persistent asthma with exacerbation J45.41 [facility] [id number] [place] [address] 03981- 8839 Nov, Low back pain M54.5 and Other chronic pain G89.29 [facility] [id number] [place] [address] 12166- 2355 October, Abscess L02.91 [facility] [facility] [address] [address]- 9629 October, Cutaneous abscess of back excluding buttocks L02.212 and BMI 40.0-44.9, adult Z68.41 [place] [facility] [address] 25913- 6097 October, [facility] [facility] [id number] [place] [address] 12416- 2213 October, [facility] [id number] [place] [address] 04467- 3502 Sep, [facility] [facility] [id number] [place] [address] 87914- 8976 Sep, Abscess L02.91 [facility] [facility] [id number] [place] [address] 94213- 8528 Sep, Right upper quadrant abdominal pain R10.11 ; Mild persistent asthma without complication J45.30 and BMI 40.0-44.9, adult Z68.41 [facility] [facility] [id number] [place] [address] 55068- 9099 Aug, Abscess L02.91 and BMI 40.0-44.9, adult Z68.41 [facility] [facility] [id number] [place] [address] 97091- 9070 Aug, Edema, unspecified type R60.9 [facility] [id number] [place] [address] 16258- 6479 Aug, Right upper quadrant abdominal pain R10.11 ; Abnormal EKG R94.31 ; Esophageal abnormality K22.9 and BMI 40.0-44.9, adult Z68.41 [facility] [id number] [place] [address] 75357- 8788 Aug, Hammer toe of right foot M20.41 and Onychomycosis B35.1 [facility] [id number] [place] [address] 68225 -7425 Aug, Myalgia M79.1 [facility] [id number] [place] [address] 17493- 9912 Aug, [facility] [id number] [place] [address] 35871- 8996 Aug, Annual physical exam Z00.00 ; BMI 40.0-44.9, adult Z68.41 ; Mild persistent asthma without complication J45.30 ; Gastroesophageal reflux disease with esophagitis K21.0 ; Acute right-sided thoracic back pain M54.6 ; Trouble breathing R06.89 and Neck pain M54.2 [facility] [facility] [id number] [place] [address] 63831- 9564 Jul, Mild persistent asthma without complication J45.30 [facility] [id number] [place] [address] 00676- 9224 27 Jul, 2017 Edema, unspecified type R60.9 [facility] [facility] [id number] [place] [address] 46288- 7398 Jun, Edema, unspecified type R60.9 [facility] [id number] [place] [address] 31155- 9733 Jun, Moderate persistent asthma with exacerbation J45.41 [facility] [facility] [address] 82534- 3637 May, Edema, unspecified type R60.9 [facility] [id number] [place] [address] 29645- 6149 May, Moderate persistent asthma with exacerbation J45.41 and Hammer toe of right foot M20.41 [facility] [facility] [id number] [place] [address] 62448- 1670 04 May, 2017 Moderate persistent asthma without complication J45.40 ; Dysfunction of left eustachian tube H69.82 and BMI 45.0-49.9, adult Z68.42 [facility] [facility] [id number] [place] [address] 61026- 3928 Apr, Edema, unspecified type R60.9 [facility] [facility] [id number] [place] [address] 45385- 7618 Mar, Edema, unspecified type R60.9 [facility] [address] 57217- 7726 Feb, Edema, unspecified type R60.9 [facility] [id number] [place] [address] 79981- 7674 Jan, Edema, unspecified type R60.9 [facility] [facility] [id number] [place] [address] 11237- 4476 Jan, Mild persistent asthma without complication J45.30 [facility] [facility] [id number] [place] [address] 82202- 1656 Dec, Edema, unspecified type R60.9 [facility] [id number] [place] [address] 78832- 8902 Nov, Edema, unspecified type R60.9 and Essential hypertension I10 [facility] [facility] [id number] [place] [address] 27781- 7890 October, Pain in left knee M25.562 [facility] [id number] [place] [address] 59505- 6975 October, Pain in left knee M25.562 [facility] [facility] [id number] [place] [address] 07320- 9080 October, [facility] [id number] [place] [address] 74367- 5646 Sep, [facility] [id number] [place] [address] 22466- 7914 17 Sep, 2016 Mild persistent asthma without complication J45.30 [facility] [id number] [place] [address] 36341- 0062 Sep, Pain in left knee M25.562 [facility] [id number] [place] [address] 49503- 2449 Aug, Acute nasopharyngitis J00 and Seasonal allergic rhinitis due to pollen J30.1 [facility] [id number] [place] [address] 56885- 7895 16 Aug, 2016 [facility] [id number] [place] [address] 49184- 3707 Aug, Arthralgia, unspecified joint M25.50 and Pain in left knee M25.562 [facility] [id number] [place] [address] 43334- 3003 Aug, Mild persistent asthma without complication J45.30 [facility] [id number] [place] [address] 05464- 6576 28 Jul, 2016 Mild persistent asthma without complication J45.30 [facility] [id number] [place] [address] 28992- 0003 Jul, Pain in left knee M25.562 [facility] [id number] [place] [address] 05088- 1251 Jun, [facility] [id number] [place] [address] 28635 -6007 Jun, [facility] [id number] [place] [address] 72371- 9763 Jun, Mild persistent asthma without complication J45.30 [facility] [id number] [place] [address] 22246- 4736 May, [facility] [address] [place] [address]- 7036 Apr, Restrictive lung disease J98.4 [facility] [id number] [place] [address] 93336- 1077 Apr, [facility] [id number] [place] [address] 98314- 3556 Apr, Mild persistent asthma without complication J45.30 [facility] [id number] [place] [address] 45964 -7087 Mar, Sore throat J02.9 and Post-nasal drainage R09.82 [place] [id number] [place] [address] 24242- 7470 Mar, [facility] [id number] [place] [address] 88701- 5626 Feb, [place] [id number] [place] [address] 28057- 5048 Feb, Mild persistent asthma without complication J45.30 [facility] [id number] [place] [address] 80818- 9151 Feb, Arthralgia, unspecified joint M25.50 [facility] [id number] [place] [address] 19943- 2935 Feb, Edema, unspecified type R60.9 ; Arthralgia, unspecified joint M25.50 ; Mild persistent asthma without complication J45.30 ; Essential hypertension I10 ; Gastroesophageal reflux disease without esophagitis K21.9 and Major depressive disorder with single episode, remission status unspecified F32.9 [place] [id number] [place] [address] 36640- 0117 Jan, Edema, unspecified type R60.9 ; Essential hypertension I10 ; Mild persistent asthma without complication J45.30 ; Gastroesophageal reflux disease with esophagitis K21.0 ; Arthralgia, unspecified joint M25.50 and Major depressive disorder with single episode, remission status unspecified F32.9 [place] [id number] [place] [address] [place] [address]- 9866 Jan, [facility] [address] [facility] [id number] [address]- 6676 Dec, [facility] [address], [place] [address]- 0603 Dec, [facility] [address], [place] [address]- 0087 Dec, [facility] [id number] [place] [address] 16162- 5269 Nov, Bilateral edema of lower extremity R60.0 [facility] [id number] [place] [address] 31383- 2030 Nov, Bilateral edema of lower extremity R60.0 [facility] [address], [place] [address]8738 Nov, [facility] [id number] [place] [address] 55895- 2650 Nov, [facility] [address], [place] [address]- 1749 October, [facility] [address], [place] [address]- 6934 Sep, [facility] [address], [place] [address]- 1919 Aug, Acute sinusitis J01.90 [facility] [address], [place] [address]- 4460 Aug, [facility] [address], [place] [address]- 7652 Aug, [facility] [address], [place] [address]- 9667 Jul, [facility] [address], [place] [address]- 3287 Jul, Pharyngitis J02.9 [facility] [address] [place] [address] 84268- 8621 Jul, [facility] [id number] [place] [address] 14706- 9113 Jun, Pain in left knee M25.562 [facility] [id number] [place] [address] 44387- 4200 Jun, [facility] [id number] [place] [address] 01134 -0899 May, Upper respiratory symptom R09.89 [facility] [id number] [place] [address] 22195- 2514 May, [facility] [id number] [place] [address] 21470- 3464 Apr, Costochondritis M94.0 and Knee pain, left M25.562 [facility] [id number] [place] [address] 65998- 0338 Apr, [facility] [id number] [place] [address] 65849- 2905 Mar, Eustachian tube dysfunction, left H69.82 [facility] [id number] [place] [address] 93009- 6382 Mar, [facility] [id number] [place] [address] 38081- 7953 Mar, [facility] [id number] [place] [address] 65096- 4143 Mar, [facility] [id number] [place] [address] 77204- 3784 Feb, [facility] [id number] [place] [address] 53370- 5006 Feb, [facility] [id number] [place] [address] 26515- 1039 Feb, [facility] [address] 6085 Jan, Asthma 493.90 [facility] [id number] [place] [address] 522918- 6780 Dec, [facility] [address] 0454 Dec, [facility] [id number] [place] [address] 205758- 7109 Dec, [facility] [id number] [place] [address] 431251- 2491 Dec, [facility] [id number] [place] [address] 582695- 1134 Dec, Asthma, unspecified, unspecified status 493.90 [facility] [id number] [place] [address] 48575- 0092 Nov, [facility] [id number] [place] [address] 783585- 1803 Nov, Asthma, unspecified, unspecified status 493.90 [facility] [id number] [place] [address] 463448- 5512 October, Asthma, unspecified, unspecified status 493.90 [facility] [address], [place] [address]- 9720 October, [facility] [address], [place] [address]- 2369 October, Contact dermatitis 692.9 and Candidiasis of skin 112.3 [facility] [address], [place] [address]- 2032 Sep, [facility] [address] 3666 Sep, [facility] [address] 9739 Aug, [facility] [address] [facility] [id number] [place] [address]- 0594 Aug, [facility] [place] [facility] [address] [id number] [place] [address]- 4554 Aug, [facility] [place] [facility] [address] [id number] [place] 3346 Aug, [facility] [place] [facility] [address] [id number] [place] [address]- 9446 Jul, [facility] [place] [facility] [address] [id number] [place] [address]- 7555 Jul, [facility] [place] [facility] [address] [id number] [place] [address]- 3206 Jun, [facility] [place] [facility] [address] [id number] [place] [address]- 9064 Jun, [facility] [place] [facility] [address] [id number] [place] [address]- 6317 May, [facility] [place] [facility] [address] [id number] [place] [address]- 4397 May, [facility] [place] [facility] [address] [id number] [place] [address]- 2500 May, [facility] [place] [facility] [address] [id number] [place] [address]- 6653 May, [facility] [place] [facility] [address] [id number] [place] [address]- 3760 May, [facility] [place] [facility] [address] [id number] [place] [address]- 8912 May, [facility] [place] [facility] [address] [id number] [place] [address]- 6593 Apr, [facility] [place] [facility] [address] [id number] [place] [address]- 3496 Apr, [facility] [place] [facility] [address] [id number] [place] [address]- 8850 15 Feb, 2014 [facility] [place] [facility] [address] [id number] [place] [address]- 7204 15 Feb, 2014 [facility] [place] [facility] [address] [id number] [place] [address]- 2077 Feb, [facility] [place] [facility] [address] [id number] [place] [address]- 8862 Feb, [facility] [place] [facility] [address] [id number] [place] [address]- 4032 05 Feb, 2014 [facility] [place] [facility] [address] [id number] [place] [address]- 7900 Feb, [facility] [place] [facility] [address] [id number] [place] [address]- 7774 Jan, [facility] [place] [facility] [address] [id number] [place] [address]- 0437 Jan, [facility] [place] [facility] [address] [id number] [place] [address]- 3736 Jan, [facility] [place] [facility] [address] [id number] [place] [address]- 8019 Jan, [facility] [place] [facility] [address] [id number] [place] [address]- 1358 Jan, [facility] [place] [facility] [address] [id number] [place] [address]- 6858 Jan, [facility] [place] [facility] [address] [id number], [place] [address]- 4343 Dec, [facility] [place] [facility] [address] [id number] [place] [address]- 5402 Dec, [facility] [place] [facility] [address] [id number] [place] [address]- 6531 Nov, [facility] [place] [facility] [address] [id number] [place] [address]- 6554 Nov, [facility] [place] [facility] [address] [id number] [place] [address]- 2144 Nov, [facility] [place] [facility] [address] [id number] [place] [address]- 4155 Nov, [facility] [place] [facility] [address] [id number] [place] [address]- 9364 Nov, [facility] [place] [facility] [address] [id number] [place] [address]- 2267 Nov, [facility] [place] [facility] [address] [id number] [place] [address]- 9835 Nov, [facility] [place] [facility] [address] [id number] [place] [address]- 3876 Nov, [facility] [place] [facility] [address] [id number] [place] [address]- 7694 Nov, [facility] [place] [facility] [address] [id number] [place] [address]- 2564 Nov, [facility] [place] [facility] [address] [id number] [place] [address]- 0940 Nov, [facility] [place] [facility] [address] [id number] [place] [address]- 2046 Nov, [facility] [place] [facility] [address] [id number] [place] [address]- 3623 Nov, [facility] [place] [facility] [address] [id number] [place] [address]- 8789 October, [facility] [place] [facility] [address] [id number] [place] [address]- 5377 October, [facility] [place] [facility] [address] [id number] [place] [address]- 1665 October, [facility] [place] [facility] [address] [id number] [place] [address]- 1882 October, [facility] [place] [facility] [address] [id number] [place] [address]- 5506 Sep, [facility] [place] [facility] [address] [id number] [place] [address]- 9767 Sep, [facility] [place] [facility] [address] [id number] [place] [address]- 2337 Sep, [facility] [place] [facility] [address] [id number] [place] [address]- 8560 Sep, [facility] [place] [facility] [address] [id number] [place] [address]- 1750 Aug, [facility] [place] [facility] [address] [id number] [place] [address]- 1066 Aug, [facility] [place] [facility] [address] [id number] [place] [address]- 4632 Jul, [facility] [place] [facility] [address] [id number] [place] [address]- 1688 Jul, [facility] [place] [facility] [address] [id number] [place] [address]- 3014 Jun, [facility] [place] [facility] [address] [id number] [place] [address]- 7395 Jun, [facility] [place] [facility] [address] [id number] [place] [address]- 5572 Mar, [facility] [place] [facility] [address] [id number] [place] [address]- 4566 Mar, [facility] [place] [facility] [address] [id number], [place] [address]- 3517 Mar, [facility] [place] [facility] [address] [id number] [place] [address]- 4158 Mar, [facility] [place] [facility] [address] [id number] [place] [address]- 5370 Mar, [facility] [place] [facility] [address] [id number] [place] [address]- 8287 Feb, [facility] [place] [facility] [address] [id number], [place] [address]- 7428 Feb, [facility] [address] [id number] [place] [address]- 5310 Dec, [facility] [address] [id number] [place] [address]- 2454 Nov, [facility] [address] [id number] [place] [address]- 5121 October, [facility] [address] [id number] [place] [address]- 0914 Sep, [facility] [address] [id number] [place] [address] Sep, [facility] [address] [id number] [place] [address] Aug, [facility] [address] [id number] [place] [address] Aug, [facility] [address] [id number] [place] [address] Aug, [facility] [address] [id number] [place] [address] Aug, [facility] [address] [id number] [place] [address] Jun, [facility] [address] [id number], [place] [address] Jun, [facility] [place] [facility] [address] [id number] [place] [address] Jun, [facility] [place] [facility] [address] [id number] [place] [address] May, [facility] [place] [facility] [address] [id number] [place] [address] May, [facility] [place] [facility] [address] [id number] [place] [address] Apr, [facility] [place] [facility] [address] [id number] [place] [address] Apr, [facility] [place] [facility] [address] [id number] [place] [address] Apr, [facility] [place] [facility] [address] [id number] [place] [address] Apr, [facility] [place] [facility] [address] [id number] [place] [address] Apr, [facility] [place] [facility] [address] [id number] [place] [address] Apr, [facility] [place] [facility] [address] [id number] [place] [address] Apr, [facility] [place] [facility] [address] [id number] [place] [address] Mar, [facility] [place] [facility] [address] [id number] [place] [address] 31 Mar, 2012 [facility] [place] [facility] [address] [id number] [place] [address] 18 Feb, 2012 [facility] [place] [facility] [address] [id number] [place] [address]- [address] 17 Feb, 2012 [facility] [place] [facility] [address] [id number] [place] [address]- [address] 13 Feb, 2012 [facility] [place] [facility] [address] [id number] [place] [address]- [address] 15 Jan, 2012 [facility] [place] [facility] [address] [id number] [place] [address]- [address] 14 Jan, 2012 [facility] [place] [facility] [address] [id number] [place] [address] Jan, [facility] [place] [facility] [address] [id number] [place] [address] Jan, [facility] [place] [facility] [address] [id number] [place] [address] Dec, [facility] [place] [facility] [address] [id number] [place] [address] 20 Dec, 2011 [facility] [place] [facility] [address] [id number] [place] [address] 18 Dec, 2011 [facility] [place] [facility] [address] [id number] [place] [address] 17 Dec, 2011 [facility] [place] [facility] [address] [id number] [place] [address] 10 Dec, 2011 [facility] [place] [facility] [address] [id number] [place] [address] Nov, [facility] [place] [facility] [address] [id number] [place] [address] Nov, [facility] [place] [facility] [address] [id number] [place] [address] Nov, [facility] [place] [facility] [address] [id number] [place] [address] Nov, [facility] [place] [facility] [address] [id number] [place] [address] October, [facility] [place] [facility] [address] [id number] [place] [address] October, [facility] [place] [facility] [address] [id number] [place] [address] October, [facility] [place] [facility] [address] [address] [id number] [place] [address] October, [facility] [place] [facility] [address] [id number] [place] [address] October, [facility] [place] [facility] [address] [id number] [place] [address] Sep, [facility] [place] [facility] [address] [id number] [place] [address] Sep, [facility] [place] [facility] [address] [id number] [place] [address] 12 Sep, 2011 [facility] [address] [id number] [place] [address] 11 Sep, 2011 [facility] [place] [facility] [address] [id number] [place] [address] 03 Sep, 2011 [facility] [place] [facility] [address] [id number] [place] [address] 29 Aug, 2011 [facility] [place] [facility] [address] [id number] [place] [address] 28 Aug, 2011 [facility] [place] [facility] [address] [id number] [place] [address] 27 Aug, 2011 [facility] [place] [facility] [address] [id number] [place] [address] 26 Aug, 2011 [facility] [address] [id number] [place] [address] 23 Aug, 2011 [facility] [place] [facility] [address] [id number] [place] [address] 20 Aug, 2011 [facility] [place] [facility] [address] [id number] [place] [address] 19 Aug, 2011 [facility] [place] [facility] [address] [id number] [place] [address] 17 Aug, 2011 [facility] [place] [facility] [address] [id number] [place] [address] 18 Jun, 2011 [facility] [place] [facility] [address] [id number] [place] [address] 12 Jun, 2011 [facility] [place] [facility] [address] [id number] [place] [address] 11 Jun, 2011 [facility] [place] [facility] [address] [id number] [place] [address] 10 Jun, 2011 [facility] [place] [facility] [address] [id number] [place] [address] 06 Jun, 2011 [facility] [place] [facility] [id number] [place] [address] May, [facility] [id number] [place] [address] Apr, [facility] [id number], [place] [address] October, [facility] [id number], [place] [address] May, [facility] [address] [facility] [id number] [address] May, [facility] [id number], [place] [address] Apr, [facility] [id number], [place] [address] Jan, [facility] [id number], [place] [address] Dec, [facility] [address] [id number], [place] [address] Sep, [facility] [id number], [place] [address] Sep, [facility] [address] [id number], [place] [address] Jul, [facility] [address] [id number], [place] [address] May, [facility] [address] [id number], [place] [address] Jan, IMMUNIZATIONS No Known Immunizations SOCIAL HISTORY Never Assessed REASON FOR VISIT Fever- shanelle glynn, right side pain (abscess under skin is bothering her-had it previously drained in september) PLAN OF CARE Activity Details Follow Up 3 Months, prn Reason:abscess VITAL SIGNS Height 64 in 2017-10-28 Weight 242.8 lbs 2017-10-28 Temperature 98.7 degrees Fahrenheit 2017-10-28 Heart Rate 71 bpm 2017-10-28 Respiratory Rate 20 2017-10-28 BMI 41.67 kg/m2 2017-10-28 Blood pressure systolic 115 mmHg 2017-10-28 Blood pressure diastolic 72 mmHg 2017-10-28 MEDICATIONS Medication Instructions Dosage Frequency Start Date End Date Duration Status Cyclobenzaprine HCl 5 MG TAKE ONE TABLET BY MOUTH TWICE DAILY 30 Active Advair Diskus 250-50 MCG/DOSE Inhalation Twice a day 1 puff 12h Nov, 60 days Active Ibuprofen 800 MG Orally Three times a day 1 tablet 8h Active Tramadol HCl 50 MG Orally 1 tablet 3 times a day as needed 1 tablet 28 days Active Hydrochlorothiazide 50 mg Orally Once a day 1 tablet 24h 30 Active Losartan Potassium 25 MG 1 tablet 24h Active Omeprazole 20 MG TAKE ONE CAPSULE BY MOUTH ONCE DAILY 30 Active Spiriva Respimat 1.25 MCG/ACT Inhalation Once a day 2 puffs 24h Aug, 90 days Active Albuterol Sulfate (2.5 MG/3ML) 0.083% USE ONE VIAL (3 ML) PER NEBULIZER FOUR TIMES DAILY NEEDED FOR WHEEZING OR COUGH 6 Active Wellbutrin XL 150 MG Orally Once a day 1 tablet in the morning 24h Active Keflex 500 mg Orally every 12 hrs 1 capsule 12h October, Nov, 10 day(s) Active Proventil HFA 108 (90 Base) MCG/ACT Inhalation every 4 hrs 2 puffs as needed 4h Feb, 30 days Active RESULTS No Results PROCEDURES [...]
--- OUTSIDE RECORDS SUMMARY | 2018-05-04 07:27 | XMS REPORT ---
Author Author JENNIFER CANCINO Organization [facility] Address [address] [place] [address] Care Team Providers Care Imaging Tech Name Role Phone JENNIFER CANCINO Unavailable PROBLEMS Type Condition ICD9-CM Code NOZ66-FF Code Onset Dates Condition Status SNOMED Code Problem Mild persistent asthma without complication J45.30 Active 723455572 Problem Edema, unspecified type R60.9 Active 601657431 Problem Gastroesophageal reflux disease with esophagitis K21.0 Active 225730603 Problem Essential hypertension I10 Active 58218503 Problem Moderate persistent asthma with exacerbation J45.41 Active 049505516 Problem Other chronic pain G89.29 Active 37621500 Problem Esophageal abnormality K22.9 Active 53758654 Problem Hammer toe of right foot M20.41 Active 583463795 Problem Abnormal EKG R94.31 Active 131771801 Problem Right upper quadrant abdominal pain R10.11 Active 252658609 ALLERGIES No Information ENCOUNTERS Encounter Location Date Diagnosis [place] [id number] [place] [address] 47088- 7967 Dec, BMI 40.0-44.9, adult Z68.41 ; Other chronic pain G89.29 and Pain in left hip M25.552 [place] [id number] [place] [address] 71997- 2611 Nov, Abscess L02.91 [place] [id number] [place] [address] 87658- 5911 Nov, Moderate persistent asthma with exacerbation J45.41 [place] [id number] [place] [address] 37938- 1390 Nov, Low back pain M54.5 and Other chronic pain G89.29 [place] [id number] [place] [address] 37131- 5979 October, Abscess L02.91 [place] [id number] [place] [address] 20474- 0669 October, Cutaneous abscess of back excluding buttocks L02.212 and BMI 40.0-44.9, adult Z68.41 [place] [id number] [place] [address] 83193- 6206 October, [place] [address] 81044- 3939 October, [place] [id number] [place] [address] 28280- 0420 Sep, [place] [address] 61573- 3225 Sep, Abscess L02.91 [place] [address] 43229- 8020 Sep, Right upper quadrant abdominal pain R10.11 ; Mild persistent asthma without complication J45.30 and BMI 40.0-44.9, adult Z68.41 [place] [address] 58665- 5961 Aug, Abscess L02.91 and BMI 40.0-44.9, adult Z68.41 [place] [id number] [place] [address] 20529- 3730 Aug, Edema, unspecified type R60.9 [place] [id number] [place] [address] 56620- 9859 Aug, Right upper quadrant abdominal pain R10.11 ; Abnormal EKG R94.31 ; Esophageal abnormality K22.9 and BMI 40.0-44.9, adult Z68.41 [place] [id number] [place] [address] 11122- 3803 Aug, Hammer toe of right foot M20.41 and Onychomycosis B35.1 [facility] [address] [address] -[address] Aug, Myalgia M79.1 [place] [address] 20214- 6406 Aug, [place] [address] 65462- 0871 Aug, Annual physical exam Z00.00 ; BMI 40.0-44.9, adult Z68.41 ; Mild persistent asthma without complication J45.30 ; Gastroesophageal reflux disease with esophagitis K21.0 ; Acute right-sided thoracic back pain M54.6 ; Trouble breathing R06.89 and Neck pain M54.2 [place] [address] 29332- 2220 28 Jul, 2017 Mild persistent asthma without complication J45.[address] 69026- 5457 Jul, Edema, unspecified type R60.[address] 63885- 8637 Jun, Edema, unspecified type R60.[address] 33137- 6108 Jun, Moderate persistent asthma with exacerbation J45.[address] 46143- 1963 May, Edema, unspecified type R60.9 [place] [address] 97888- 4768 May, Moderate persistent asthma with exacerbation J45.41 and Hammer toe of right foot M20.[address] 05365- 8361 04 May, 2017 Moderate persistent asthma without complication J45.40 ; Dysfunction of left eustachian tube H69.82 and BMI 45.0-49.9, adult Z68.[address] [place] [address]- 1470 Apr, Edema, unspecified type R60.9 [facility] [id number] [place] [address] 25748- 1107 Mar, Edema, unspecified type R60.9 [facility] [id number] [place] [address] 74308- 2413 Feb, Edema, unspecified type R60.9 [facility] [id number] [place] [address] 51250- 3449 Jan, Edema, unspecified type R60.9 [place] [address] 31601- 1725 Jan, Mild persistent asthma without complication J45.30 [place] [id number] [place] [address] 74978- 7518 Dec, Edema, unspecified type R60.9 [place] [id number] [place] [address] 39210- 5608 Nov, Edema, unspecified type R60.9 and Essential hypertension I10 [place] [id number] [place] [address] 66805- 8096 October, Pain in left knee M25.562 [facility] [id number] [place] [address] 22587- 8382 October, Pain in left knee M25.562 [facility] [id number] [place] [address] 03679- 2590 October, [facility] [id number] [place] [address] 14046- 3370 Sep, [facility] [id number] [place] [address] 43237- 0791 Sep, Mild persistent asthma without complication J45.30 [facility] [id number] [place] [address] 16869- 0938 Sep, Pain in left knee M25.562 [facility] [address] [place] [address] 05284- 6066 23 Aug, 2016 Acute nasopharyngitis J00 and Seasonal allergic rhinitis due to pollen J30.1 [facility] [id number] [place] [address] 38120- 4800 16 Aug, 2016 [facility] [id number] [place] [address] 45875- 2560 13 Aug, 2016 Arthralgia, unspecified joint M25.50 and Pain in left knee M25.562 [facility] [id number] [place] [address] 09962- 1357 08 Aug, 2016 Mild persistent asthma without complication J45.30 [facility] [id number] [place] [address] 81649- 7164 28 Jul, 2016 Mild persistent asthma without complication J45.30 [facility] [id number] [place] [address] 44651- 0445 Jul, Pain in left knee M25.562 [facility] [id number] [place] [address] 28002- 4135 Jun, [facility] [address] [place] [address] 17124 -8673 Jun, [facility] [id number] [place] [address] 25674- 7335 Jun, Mild persistent asthma without complication J45.30 [facility] [id number] [place] [address] 18919- 3102 May, [facility] [id number] [place] [address] 52965- 9371 Apr, Restrictive lung disease J98.4 [facility] [id number] [place] [address] 84897- 8272 Apr, [facility] [id number] [place] [address] 41358- 8198 Apr, Mild persistent asthma without complication J45.30 [facility] [address] [address]1058 Mar, Sore throat J02.9 and Post-nasal drainage R09.82 [facility] [address] [address]- 4127 Mar, [facility] [id number] [place] [address] 62275- 3704 Feb, [facility] [id number] [place] [address] 49174- 0225 Feb, Mild persistent asthma without complication J45.30 [facility] [id number] [place] [address] 35296- 4963 Feb, Arthralgia, unspecified joint M25.50 [facility] [id number] [place] [address] 67485- 5238 Feb, Edema, unspecified type R60.9 ; Arthralgia, unspecified joint M25.50 ; Mild persistent asthma without complication J45.30 ; Essential hypertension I10 ; Gastroesophageal reflux disease without esophagitis K21.9 and Major depressive disorder with single episode, remission status unspecified F32.9 [facility] [address], [place] [address]- 3003 Jan, Edema, unspecified type R60.9 ; Essential hypertension I10 ; Mild persistent asthma without complication J45.30 ; Gastroesophageal reflux disease with esophagitis K21.0 ; Arthralgia, unspecified joint M25.50 and Major depressive disorder with single episode, remission status unspecified F32.9 [facility] [address] [place] [address] 87622- 7279 Jan, [facility] [id number] [place] [address] 32441- 3712 Dec, [facility] [address] [place] [address] 77873- 6334 Dec, [facility] [address] [address]- 4764 Dec, [facility] [address] [address]- 8374 Nov, Bilateral edema of lower extremity R60.0 [facility] [address] [place] [address]- 9566 Nov, Bilateral edema of lower extremity R60.0 [facility] [address] [place] [address] -8728 Nov, [facility] [address] [place] [address] 16795- 7991 Nov, [facility] [address] [address]- 3276 October, [facility] [address] [place] [address] 95451- 9130 Sep, [facility] [address], [place] [address] 2548 Aug, Acute sinusitis J01.90 [facility] [address] [address]- 6846 Aug, [facility] [address] [address]- 3775 Aug, [facility] [address], [place] [address] 2546 Jul, [facility] [address], [place] [address] 2546 Jul, Pharyngitis J02.9 [facility] [address] [address]- 2546 05 Jul, 2015 [facility] [address], [place] [address]- 2546 Jun, Pain in left knee M25.562 [facility] [id number] [place] [address] 62263- 1537 Jun, [facility] [id number] [place] [address] 73826 -0827 May, Upper respiratory symptom R09.89 [facility] [id number] [place] [address] 93468- 6481 May, [facility] [id number] [place] [address] 91568- 2671 Apr, Costochondritis M94.0 and Knee pain, left M25.562 [facility] [id number] [place] [address] 84102- 8570 Apr, [facility] [id number] [place] [address] 74562- 1287 Mar, Eustachian tube dysfunction, left H69.82 [facility] [id number] [place] [address] 33651- 6474 Mar, [facility] [id number] [place] [address] 01687- 2199 Mar, [facility] [id number] [place] [address] 42173- 3618 Mar, [facility] [id number] [place] [address] 73371- 6465 Feb, [facility] [id number] [place] [address] 50264- 9448 Feb, [facility] [id number] [place] [address] 80734- 4739 Feb, [facility] [id number] [place] [address] 19674- 0978 Jan, Asthma 493.90 [facility] [id number] [place] [address] 41247- 7436 Dec, [facility] [id number] [place] [address] 11946- 5686 Dec, [facility] [address] [address]- 1839 Dec, [facility] [address], [place] [address]- 0486 Dec, [facility] [address], [place] [address]- 1826 Dec, Asthma, unspecified, unspecified status 493.90 [facility] [address], [place] [address]- 3884 Nov, [facility] [address], [place] [address]- 3442 Nov, Asthma, unspecified, unspecified status 493.90 [facility] [address], [place] [address]- 8996 October, Asthma, unspecified, unspecified status 493.90 [facility] [address], [place] [address]- 0267 October, [facility] [address] 9575 October, Contact dermatitis 692.9 and Candidiasis of skin 112.3 [facility] [address], [place] [address]- 3993 Sep, [facility] [address], [place] [address]- 5708 Sep, [facility] [address], [place] [address]- 3023 Aug, [facility] [address], [place] [address]- 6016 Aug, [facility] [id number] [address]- 6506 Aug, [facility] [address], [place] [address]- 7334 Aug, [facility] [place] [facility] [address] [id number] [place] [address]- 1691 Jul, [facility] [place] [facility] [address] [id number] [place] [address]- 3136 Jul, [facility] [place] [facility] [address] [facility] [id number] [place] [address]- 3762 Jun, [facility] [place] [facility] [address] [id number] [place] [address]- 2731 Jun, [facility] [place] [facility] [address] [id number] [place] [address]- 3666 May, [facility] [place] [facility] [address] [id number] [place] [address]- 7834 May, [facility] [place] [facility] [address] [id number] [place] [address]- 5278 May, [facility] [place] [facility] [address] [id number] [place] [address]- 6623 May, [facility] [place] [facility] [address] [id number] [place] [address]- 8602 May, [facility] [place] [facility] [address] [id number] [place] [address]- 1661 May, [facility] [place] [facility] [address] [id number] [place] [address]- 6653 Apr, [facility] [place] [facility] [address] [id number] [place] [address]- 6926 Apr, [facility] [place] [facility] [address] [id number] [place] [address]- 1077 Feb, [facility] [place] [facility] [address] [id number] [place] [address]- 3756 15 Feb, 2014 [facility] [place] [facility] [address] [id number] [place] [address]- 6717 Feb, [facility] [place] [facility] [address] [id number] [place] [address]- 1949 Feb, [facility] [place] [facility] [address] [id number] [place] [address]- 9095 Feb, [facility] [place] [facility] [address] [id number] [place] [address]- 6031 Feb, [facility] [place] [facility] [address] [id number] [place] [address]- 4220 Jan, [facility] [place] [facility] [address] [id number] [place] [address]- 8558 Jan, [facility] [place] [facility] [address] [id number] [place] [address]- 4039 Jan, [facility] [place] [facility] [address] [id number] [place] [address]- 4649 Jan, [facility] [place] [facility] [address] [id number] [place] [address]- 8135 Jan, [facility] [place] [facility] [address] [id number] [place] [address]- 3465 Jan, [facility] [place] [facility] [address] [id number] [place] [address]- 4564 Dec, [facility] [place] [facility] [address] [id number] [place] [address]- 1538 Dec, [facility] [place] [facility] [address] [id number] [place] [address]- 3532 Nov, [facility] [place] [facility] [address] [id number] [place] [address]- 1755 Nov, [facility] [place] [facility] [address] [id number] [place] [address]- 5388 Nov, [facility] [place] [facility] [address] [id number] [place] [address]- 5971 Nov, [facility] [place] [facility] [address] [id number] [place] [address]- 6011 Nov, [facility] [place] [facility] [address] [id number] [place] [address]- 8440 Nov, [facility] [place] [facility] [address] [id number] [place] [address]- 3618 Nov, [facility] [place] [facility] [address] [id number] [place] [address]- 5495 Nov, [facility] [place] [facility] [address] [id number] [place] [address]- 2846 Nov, [facility] [place] [facility] [address] [id number] [place] [address]- 2479 Nov, [facility] [place] [facility] [address] [id number] [place] [address]- 5040 Nov, [facility] [place] [facility] [address] [id number] [place] [address]- 6759 Nov, [facility] [place] [facility] [address] [id number] [place] [address]- 6673 Nov, [facility] [place] [facility] [address] [id number] [place] [address]- 6733 October, [facility] [place] [facility] [address] [id number] [place] [address]- 8820 October, [facility] [place] [facility] [address] [id number] [place] [address]- 1117 October, [facility] [place] [facility] [address] [id number] [place] [address]- 8850 October, [facility] [place] [facility] [address] [id number] [place] [address]- 1806 Sep, [facility] [place] [facility] [address] [id number] [place] [address]- 2899 Sep, [facility] [place] [facility] [address] [id number] [place] [address]- 7482 Sep, [facility] [place] [facility] [address] [id number], [place] [address]- 2756 Sep, [facility] [place] [facility] [address] [id number] [place] [address]- 6266 Aug, [facility] [place] [facility] [address] [id number] 8008 Aug, [facility] [place] [facility] [address] [facility] [id number] [place] [address]- 0283 Jul, [facility] [place] [facility] [address] [id number] [place] [address]- 1963 Jul, [facility] [place] [facility] [address] [facility] [id number] [place] [address]- 8273 Jun, [facility] [place] [facility] [address] [id number] [place] [address]- 3915 Jun, [facility] [place] [facility] [address] [facility] [id number], [place] [address]- 5776 Mar, [facility] [place] [facility] [address] [id number] [place] [address]- 6210 Mar, [facility] [place] [facility] [address] [facility] [id number] [place] [address]- 8273 Mar, [facility] [place] [facility] [address] [facility] [id number] [place] [address]- 4416 Mar, [facility] [place] [facility] [address] [facility] [id number], [place] [address]- 6443 Mar, [facility] [place] [facility] [address] [id number], [place] [address]- 4513 Feb, [facility] [place] [facility] [address] [id number], [place] [address]- 6047 Feb, [facility] [place] [facility] [address] [facility] [id number], [place] [address]- 1364 Dec, [facility] [place] [facility] [address] [facility] [id number], [place] [address]- 3700 Nov, [facility] [place] [facility] [address] [id number] [place] [address]- 3696 October, [facility] [place] [facility] [address] [id number] [place] [address]- 2725 Sep, [facility] [place] [facility] [address] [id number] [place] [address]- 2546 Sep, [facility] [place] [facility] [address] [id number] [place] [address]- 3807 Aug, [facility] [place] [facility] [address] [id number] [place] [address]- 5104 Aug, [facility] [place] [facility] [address] [id number] [place] [address]- 4818 Aug, [facility] [place] [facility] [address] [id number] [place] [address] Aug, [facility] [place] [facility] [address] [id number] [place] [address] Jun, [facility] [place] [facility] [address] [id number] [place] [address] Jun, [facility] [place] [facility] [address] [id number] [place] [address] Jun, [facility] [place] [facility] [address] [id number] [place] [address] May, [facility] [place] [facility] [address] [id number] [place] [address] May, [facility] [place] [facility] [address] [id number] [place] [address] Apr, [facility] [place] [facility] [address] [id number] [place] [address] Apr, [facility] [place] [facility] [address] [id number] [place] [address] Apr, [facility] [place] [facility] [address] [id number] [place] [address] Apr, [facility] [place] [facility] [address] [id number] [place] [address] Apr, [facility] [place] [facility] [address] [id number] [place] [address] Apr, [facility] [place] [facility] [address] [id number] [place] [address] Apr, [facility] [place] [facility] [address] [id number] [place] [address] Mar, [facility] [place] [facility] [address] [id number] [place] [address] Mar, [facility] [place] [facility] [address] [id number] [place] [address] 18 Feb, 2012 [facility] [place] [facility] [address] [id number] [place] [address] 17 Feb, 2012 [facility] [place] [facility] [address] [id number] [place] [address] 13 Feb, 2012 [facility] [place] [facility] [address] [id number] [place] [address] 15 Jan, 2012 [facility] [place] [facility] [address] [id number] [place] [address] Jan, [facility] [place] [facility] [address] [id number], [place] [address] Jan, [facility] [place] [facility] [address] [id number], [place] [address] Jan, [facility] [place] [facility] [address] [id number] [place] [address] Dec, [facility] [place] [facility] [address] [id number] [place] [address] Dec, [facility] [place] [facility] [address] [id number] [place] [address] Dec, [facility] [place] [facility] [address] [id number] [place] [address] 17 Dec, 2011 [facility] [place] [facility] [address] [id number] [place] [address] 10 Dec, 2011 [facility] [place] [facility] [address] [id number] [place] [address] 14 Nov, 2011 [facility] [place] [facility] [address] [id number] [place] [address] 14 Nov, 2011 [facility] [place] [facility] [address] [id number] [place] [address] Nov, [facility] [place] [facility] [address] [id number] [place] [address] Nov, [facility] [place] [facility] [address] [id number] [place] [address] October, [facility] [address] [id number] [place] [address] October, [facility] [place] [facility] [address] [id number] [place] [address] October, [facility] [place] [facility] [address] [id number] [place] [address] October, [facility] [place] [facility] [address] [id number] [place] [address] October, [facility] [place] [facility] [address] [id number] [place] [address] Sep, [facility] [place] [facility] [address] [id number] [place] [address] 20 Sep, 2011 [facility] [place] [facility] [address] [id number] [place] [address] Sep, [facility] [facility] [address] [id number] [place] [address] Sep, [facility] [place] [facility] [address] [id number] [place] [address] Sep, [facility] [place] [facility] [address] [id number] [place] [address] 29 Aug, 2011 [facility] [address] [id number] [place] [address] 28 Aug, 2011 [facility] [place] [facility] [address] [id number] [place] [address] 27 Aug, 2011 [facility] [address] [id number] [place] [address] 26 Aug, 2011 [facility] [address] [id number] [place] [address] 23 Aug, 2011 [facility] [address] [id number] [place] [address] 20 Aug, 2011 [facility] [address] [id number] [place] [address] 19 Aug, 2011 [facility] [address] [id number] [place] [address] 17 Aug, 2011 [facility] [address] [id number] [place] [address] 18 Jun, 2011 [facility] [address] [id number] [place] [address] Jun, [facility] [address] [id number] [place] [address] 11 Jun, 2011 [facility] [address] [id number] [place] [address] Jun, [facility] [place] [facility] [address] [id number] [place] [address] 06 Jun, 2011 [facility] [place] [facility] [address] [id number] [place] [address] 20 May, 2011 [facility] [place] [facility] [address] [id number] [place] [address] 29 Apr, 2011 [facility] [address] [id number], [place] [address] October, [facility] [id number] [place] [address] May, [facility] [id number] [place] [address] May, [facility] [id number] [place] [address] Apr, [facility] [id number], [place] [address] Jan, [facility] [id number], [place] [address] Dec, [facility] [id number], [place] [address] Sep, [facility] [id number] [place] [address] Sep, [facility] [id number], [place] [address] Jul, [facility] [id number], [place] [address] May, [facility] [id number] [place] [address] Jan, IMMUNIZATIONS No Known Immunizations SOCIAL HISTORY [...]
--- OUTSIDE RECORDS SUMMARY | 2018-05-04 07:28 | XMS REPORT ---
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 Name Role Phone JENNIFER CANCINO Unavailable PROBLEMS Type Condition ICD9-CM Code SGL02-FN Code Onset Dates Condition Status SNOMED Code Problem Mild persistent asthma without complication J45.30 Active 955209255 Problem Edema, unspecified type R60.9 Active 460802836 Problem Gastroesophageal reflux disease with esophagitis K21.0 Active 926732505 Problem Essential hypertension I10 Active 37268119 Problem Moderate persistent asthma with exacerbation J45.41 Active 574462636 Problem Other chronic pain G89.29 Active 47164528 Problem Esophageal abnormality K22.9 Active 45326295 Problem Hammer toe of right foot M20.41 Active 555724303 Problem Abnormal EKG R94.31 Active 821567396 Problem Right upper quadrant abdominal pain R10.11 Active 463762605 ALLERGIES No Information ENCOUNTERS Encounter Location Date Diagnosis [facility] [id number] [place] [address] 54794- 9713 Dec, BMI 40.0-44.9, adult Z68.41 ; Other chronic pain G89.29 and Pain in left hip M25.552 [facility] [facility] [id number] [place] [address] 82600- 6918 Nov, Abscess L02.91 [facility] [id number] [place] [address] 84368- 3914 Nov, Moderate persistent asthma with exacerbation J45.41 [facility] [id number] [place] [address] 04554- 0874 Nov, Low back pain M54.5 and Other chronic pain G89.29 [facility] [id number] [place] [address] 61366- 6498 October, Abscess L02.91 [facility] [id number] [place] [address] 65569- 5197 October, Cutaneous abscess of back excluding buttocks L02.212 and BMI 40.0-44.9, adult Z68.41 [facility] [facility] [id number] [place] [address] 12512- 0464 October, [facility] [facility] [address] 23046- 5491 October, [facility] [id number] [place] [address] 60118- 3239 Sep, [facility] [address] 52657- 8621 Sep, Abscess L02.91 [facility] [address] 21285- 4538 Sep, Right upper quadrant abdominal pain R10.11 ; Mild persistent asthma without complication J45.30 and BMI 40.0-44.9, adult Z68.41 [facility] [address] 92694- 2066 Aug, Abscess L02.91 and BMI 40.0-44.9, adult Z68.41 [facility] [id number] [place] [address] 75061- 3567 Aug, Edema, unspecified type R60.9 [facility] [id number] [place] [address] 65970- 1338 Aug, Right upper quadrant abdominal pain R10.11 ; Abnormal EKG R94.31 ; Esophageal abnormality K22.9 and BMI 40.0-44.9, adult Z68.41 [facility] [id number] [place] [address] 79174- 9376 Aug, Hammer toe of right foot M20.41 and Onychomycosis B35.1 [facility] [address] [address] Aug, Myalgia M79.1 [facility] [address] 04100- 6008 Aug, [facility] [address] 84118- 1384 Aug, Annual physical exam Z00.00 ; BMI 40.0-44.9, adult Z68.41 ; Mild persistent asthma without complication J45.30 ; Gastroesophageal reflux disease with esophagitis K21.0 ; Acute right-sided thoracic back pain M54.6 ; Trouble breathing R06.89 and Neck pain M54.2 [facility] [address] 80596- 2770 28 Jul, 2017 Mild persistent asthma without complication J45.[address] 25561- 0352 Jul, Edema, unspecified type R60.[address] 42234- 4710 Jun, Edema, unspecified type R60.[address] 03960- 1073 Jun, Moderate persistent asthma with exacerbation J45.[address] 91501- 3387 May, Edema, unspecified type R60.9 [facility] [address] 95844- 1513 May, Moderate persistent asthma with exacerbation J45.41 and Hammer toe of right foot M20.[address] 02336- 8992 04 May, 2017 Moderate persistent asthma without complication J45.40 ; Dysfunction of left eustachian tube H69.82 and BMI 45.0-49.9, adult Z68.[address] [place] [address]- 2299 Apr, Edema, unspecified type R60.9 [facility] [id number] [place] [address] 63944- 4275 Mar, Edema, unspecified type R60.9 [facility] [id number] [place] [address] 81047- 4736 Feb, Edema, unspecified type R60.9 [facility] [id number] [place] [address] 55356- 4514 Jan, Edema, unspecified type R60.9 [facility] [address] 22065- 8420 Jan, Mild persistent asthma without complication J45.30 [facility] [id number] [place] [address] 40098- 6373 Dec, Edema, unspecified type R60.9 [facility] [id number] [place] [address] 13551- 8995 Nov, Edema, unspecified type R60.9 and Essential hypertension I10 [facility] [id number] [place] [address] 33889- 7056 October, Pain in left knee M25.562 [facility] [id number] [place] [address] 26345- 3787 October, Pain in left knee M25.562 [facility] [id number] [place] [address] 20459- 4992 October, [facility] [id number] [place] [address] 52820- 6579 Sep, [facility] [id number] [place] [address] 62029- 7364 Sep, Mild persistent asthma without complication J45.30 [facility] [id number] [place] [address] 50178- 1224 Sep, Pain in left knee M25.562 [facility] [address] [place] [address] 66261- 2419 23 Aug, 2016 Acute nasopharyngitis J00 and Seasonal allergic rhinitis due to pollen J30.1 [facility] [id number] [place] [address] 40264- 3259 16 Aug, 2016 [facility] [id number] [place] [address] 53527- 9832 13 Aug, 2016 Arthralgia, unspecified joint M25.50 and Pain in left knee M25.562 [facility] [id number] [place] [address] 77713- 6798 08 Aug, 2016 Mild persistent asthma without complication J45.30 [facility] [id number] [place] [address] 35507- 6408 28 Jul, 2016 Mild persistent asthma without complication J45.30 [facility] [id number] [place] [address] 62128- 1377 Jul, Pain in left knee M25.562 [facility] [id number] [place] [address] 99790- 5890 Jun, [facility] [id number] [place] [address] 58422 -2392 Jun, [facility] [id number] [place] [address] 16447- 2937 Jun, Mild persistent asthma without complication J45.30 [facility] [id number] [place] [address] 75685- 9908 May, [facility] [id number] [place] [address] 42049- 9605 Apr, Restrictive lung disease J98.4 [facility] [id number] [place] [address] 64978- 5172 Apr, [facility] [id number] [place] [address] 52594- 9705 Apr, Mild persistent asthma without complication J45.30 [facility] [address] [address] Mar, Sore throat J02.9 and Post-nasal drainage R09.82 [facility] [address] [address]- 2033 Mar, [facility] [id number] [place] [address] 42164- 0925 Feb, [facility] [id number] [place] [address] 81016- 2306 Feb, Mild persistent asthma without complication J45.30 [facility] [id number] [place] [address] 92260- 2945 Feb, Arthralgia, unspecified joint M25.50 [facility] [id number] [place] [address] 26418- 0231 Feb, Edema, unspecified type R60.9 ; Arthralgia, unspecified joint M25.50 ; Mild persistent asthma without complication J45.30 ; Essential hypertension I10 ; Gastroesophageal reflux disease without esophagitis K21.9 and Major depressive disorder with single episode, remission status unspecified F32.9 [facility] [address] [address]- 4895 Jan, Edema, unspecified type R60.9 ; Essential hypertension I10 ; Mild persistent asthma without complication J45.30 ; Gastroesophageal reflux disease with esophagitis K21.0 ; Arthralgia, unspecified joint M25.50 and Major depressive disorder with single episode, remission status unspecified F32.9 [facility] [id number] [place] [address] 69225- 7036 Jan, [facility] [id number] [place] [address] 53359- 8396 Dec, [facility] [id number] [place] [address] 49799- 8325 Dec, [facility] [address] [place] [address]- 1177 Dec, [facility] [address] [place] [address]- 2158 Nov, Bilateral edema of lower extremity R60.0 [facility] [id number] [place] [address]- 8226 Nov, Bilateral edema of lower extremity R60.0 [facility] [id number] [place] [address] -1511 Nov, [facility] [id number] [place] [address] 08776- 4174 Nov, [facility] [address] [place] [address]- 4146 October, [facility] [id number] [place] [address] 25684- 1541 Sep, [facility] [address], [place] [address] 2549 Aug, Acute sinusitis J01.90 [facility] [address], [place] [address]- 8116 Aug, [facility] [address] [address]- 7184 Aug, [facility] [address], [place] [address] 2546 Jul, [facility] [address] [place] [address] 2546 Jul, Pharyngitis J02.9 [facility] [address] [address]- 2546 05 Jul, 2015 [facility] [address] [address]- 2546 Jun, Pain in left knee M25.562 [facility] [id number] [place] [address] 30811- 0295 Jun, [facility] [id number] [place] [address] 71042 -1140 May, Upper respiratory symptom R09.89 [facility] [id number] [place] [address] 37441- 5412 May, [facility] [id number] [place] [address] 14096- 7139 Apr, Costochondritis M94.0 and Knee pain, left M25.562 [facility] [id number] [place] [address] 37404- 0779 Apr, [facility] [id number] [place] [address] 19833- 3945 Mar, Eustachian tube dysfunction, left H69.82 [facility] [id number] [place] [address] 21833- 0345 Mar, [facility] [id number] [place] [address] 23619- 2884 Mar, [facility] [id number] [place] [address] 23585- 1410 Mar, [facility] [id number] [place] [address] 67540- 1546 Feb, [facility] [id number] [place] [address] 70822- 2993 Feb, [facility] [id number] [place] [address] 81154- 9200 Feb, [facility] [id number] [place] [address] 03943- 8200 Jan, Asthma 493.90 [facility] [id number] [place] [address] 68147- 0187 Dec, [facility] [id number] [place] [address] 65910- 0076 Dec, [facility] [address], [place] [address]- 9508 Dec, [facility] [address], [place] [address]- 8946 Dec, [facility] [address], [place] [address]- 9616 Dec, Asthma, unspecified, unspecified status 493.90 [facility] [address], [place] [address]- 1093 Nov, [facility] [address], [place] [address]- 6107 Nov, Asthma, unspecified, unspecified status 493.90 [facility] [address], [place] [address]- 0176 October, Asthma, unspecified, unspecified status 493.90 [facility] [address], [place] [address]- 7928 October, [facility] [address] 3316 October, Contact dermatitis 692.9 and Candidiasis of skin 112.3 [facility] [address], [place] [address]- 2056 Sep, [facility] [address], [place] [address]- 3119 Sep, [facility] [address], [place] [address]- 0274 Aug, [facility] [address], [place] [address]- 9736 Aug, [facility] [id number] [address]- 6096 Aug, [facility] [address], [place] [address]- 0202 Aug, [facility] [place] [facility] [address] [id number] [place] [address]- 6092 Jul, [facility] [place] [facility] [address] [id number] [place] [address]- 8246 Jul, [facility] [place] [facility] [address] [facility] [id number] [place] [address]- 1156 Jun, [facility] [place] [facility] [address] [id number] [place] [address]- 9047 Jun, [facility] [place] [facility] [address] [id number] [place] [address]- 8252 May, [facility] [place] [facility] [address] [id number] [place] [address]- 4082 May, [facility] [place] [facility] [address] [id number] [place] [address]- 1270 May, [facility] [place] [facility] [address] [id number] [place] [address]- 9048 May, [facility] [place] [facility] [address] [id number] [place] [address]- 9311 May, [facility] [place] [facility] [address] [id number] [place] [address]- 4223 May, [facility] [place] [facility] [address] [id number] [place] [address]- 8862 Apr, [facility] [place] [facility] [address] [id number] [place] [address]- 5221 Apr, [facility] [place] [facility] [address] [id number] [place] [address]- 4852 Feb, [facility] [place] [facility] [address] [id number] [place] [address]- 8111 15 Feb, 2014 [facility] [place] [facility] [address] [id number] [place] [address]- 0205 Feb, [facility] [place] [facility] [address] [id number] [place] [address]- 3953 Feb, [facility] [place] [facility] [address] [id number] [place] [address]- 4586 Feb, [facility] [place] [facility] [address] [id number] [place] [address]- 4688 Feb, [facility] [place] [facility] [address] [id number] [place] [address]- 7561 Jan, [facility] [place] [facility] [address] [id number] [place] [address]- 1875 Jan, [facility] [place] [facility] [address] [id number] [place] [address]- 1714 Jan, [facility] [place] [facility] [address] [id number] [place] [address]- 2830 Jan, [facility] [place] [facility] [address] [id number] [place] [address]- 2345 Jan, [facility] [place] [facility] [address] [id number] [place] [address]- 3677 Jan, [facility] [place] [facility] [address] [id number] [place] [address]- 9227 Dec, [facility] [place] [facility] [address] [id number] [place] [address]- 2760 Dec, [facility] [place] [facility] [address] [id number] [place] [address]- 9913 Nov, [facility] [place] [facility] [address] [id number] [place] [address]- 4553 Nov, [facility] [place] [facility] [address] [id number] [place] [address]- 2881 Nov, [facility] [place] [facility] [address] [id number] [place] [address]- 6255 Nov, [facility] [place] [facility] [address] [id number] [place] [address]- 5881 Nov, [facility] [place] [facility] [address] [id number] [place] [address]- 0854 Nov, [facility] [place] [facility] [address] [id number] [place] [address]- 6710 Nov, [facility] [place] [facility] [address] [id number] [place] [address]- 2848 Nov, [facility] [place] [facility] [address] [id number] [place] [address]- 4510 Nov, [facility] [place] [facility] [address] [id number] [place] [address]- 1181 Nov, [facility] [place] [facility] [address] [id number] [place] [address]- 3330 Nov, [facility] [place] [facility] [address] [id number] [place] [address]- 8047 Nov, [facility] [place] [facility] [address] [id number] [place] [address]- 6964 Nov, [facility] [place] [facility] [address] [id number] [place] [address]- 8170 October, [facility] [place] [facility] [address] [id number] [place] [address]- 0906 October, [facility] [place] [facility] [address] [id number] [place] [address]- 3963 October, [facility] [place] [facility] [address] [id number] [place] [address]- 4825 October, [facility] [place] [facility] [address] [id number] [place] [address]- 4168 Sep, [facility] [place] [facility] [address] [id number] [place] [address]- 9017 Sep, [facility] [place] [facility] [address] [id number] [place] [address]- 0411 Sep, [facility] [place] [facility] [address] [id number], [place] [address]- 7305 Sep, [facility] [place] [facility] [address] [id number] [place] [address]- 1865 Aug, [facility] [place] [facility] [address] [id number] [address] Aug, [facility] [place] [facility] [address] [facility] [id number] [place] [address]- 2721 Jul, [facility] [place] [facility] [address] [id number] [place] [address]- 5309 Jul, [facility] [place] [facility] [address] [facility] [id number] [place] [address]- 8959 Jun, [facility] [place] [facility] [address] [id number] [place] [address]- 4717 Jun, [facility] [place] [facility] [address] [facility] [id number], [place] [address]- 4469 Mar, [facility] [place] [facility] [address] [id number] [place] [address]- 9623 Mar, [facility] [place] [facility] [address] [facility] [id number] [place] [address]- 5573 Mar, [facility] [place] [facility] [address] [facility] [id number] [place] [address]- 0743 Mar, [facility] [place] [facility] [address] [facility] [id number], [place] [address]- 0518 Mar, [facility] [place] [facility] [address] [id number], [place] [address]- 8030 Feb, [facility] [place] [facility] [address] [id number], [place] [address]- 8436 Feb, [facility] [place] [facility] [address] [facility] [id number], [place] [address]- 4621 Dec, [facility] [place] [facility] [address] [facility] [id number], [place] [address]- 5873 Nov, [facility] [place] [facility] [address] [id number] [place] [address]- 9758 October, [facility] [place] [facility] [address] [id number] [place] [address]- 6854 Sep, [facility] [place] [facility] [address] [id number] [place] [address]- 2546 Sep, [facility] [place] [facility] [address] [id number] [place] [address]- 6618 Aug, [facility] [place] [facility] [address] [id number] [place] [address]- 5215 Aug, [facility] [place] [facility] [address] [id number] [place] [address] Aug, [facility] [place] [facility] [address] [id number] [place] [address] Aug, [facility] [place] [facility] [address] [id number] [place] [address] Jun, [facility] [place] [facility] [address] [id number] [place] [address] Jun, [facility] [place] [facility] [address] [id number] [place] [address] Jun, [facility] [place] [facility] [address] [id number] [place] [address] May, [facility] [place] [facility] [address] [id number] [place] [address] May, [facility] [place] [facility] [address] [id number] [place] [address] Apr, [facility] [place] [facility] [address] [id number] [place] [address] Apr, [facility] [place] [facility] [address] [id number] [place] [address] Apr, [facility] [place] [facility] [address] [id number] [place] [address] Apr, [facility] [place] [facility] [address] [id number] [place] [address] Apr, [facility] [place] [facility] [address] [id number] [place] [address] Apr, [facility] [place] [facility] [address] [id number] [place] [address] Apr, [facility] [place] [facility] [address] [id number] [place] [address] Mar, [facility] [place] [facility] [address] [id number] [place] [address] Mar, [facility] [place] [facility] [address] [id number] [place] [address] 18 Feb, 2012 [facility] [place] [facility] [address] [id number] [place] [address] 17 Feb, 2012 [facility] [place] [facility] [address] [id number] [place] [address] 13 Feb, 2012 [facility] [place] [facility] [address] [id number] [place] [address] 15 Jan, 2012 [facility] [place] [facility] [address] [id number] [place] [address] Jan, [facility] [place] [facility] [address] [id number], [place] [address] Jan, [facility] [place] [facility] [address] [id number], [place] [address] Jan, [facility] [place] [facility] [address] [id number] [place] [address] Dec, [facility] [place] [facility] [address] [id number] [place] [address] Dec, [facility] [place] [facility] [address] [id number] [place] [address] Dec, [facility] [place] [facility] [address] [id number] [place] [address] 17 Dec, 2011 [facility] [place] [facility] [address] [id number] [place] [address] 10 Dec, 2011 [facility] [place] [facility] [address] [id number] [place] [address] 14 Nov, 2011 [facility] [place] [facility] [address] [id number] [place] [address] 14 Nov, 2011 [facility] [place] [facility] [address] [id number] [place] [address] Nov, [facility] [place] [facility] [address] [id number] [place] [address] Nov, [facility] [place] [facility] [address] [id number] [place] [address] October, [facility] [address] [id number] [place] [address] October, [facility] [place] [facility] [address] [id number] [place] [address] October, [facility] [place] [facility] [address] [id number] [place] [address] October, [facility] [place] [facility] [address] [id number] [place] [address] October, [facility] [place] [facility] [address] [id number] [place] [address] Sep, [facility] [place] [facility] [address] [id number] [place] [address] 20 Sep, 2011 [facility] [place] [facility] [address] [id number] [place] [address] Sep, [facility] [place] [facility] [address] [id number] [place] [address] Sep, [facility] [place] [facility] [address] [id number] [place] [address] Sep, [facility] [place] [facility] [address] [id number] [place] [address] 29 Aug, 2011 [facility] [address] [id number] [place] [address] 28 Aug, 2011 [facility] [place] [facility] [address] [id number] [place] [address] 27 Aug, 2011 [facility] [address] [id number] [place] [address] 26 Aug, 2011 [facility] [address] [id number] [place] [address] 23 Aug, 2011 [facility] [address] [id number] [place] [address] 20 Aug, 2011 [facility] [address] [id number] [place] [address] 19 Aug, 2011 [facility] [address] [id number] [place] [address] 17 Aug, 2011 [facility] [address] [id number] [place] [address] 18 Jun, 2011 [facility] [address] [id number] [place] [address] Jun, [facility] [address] [id number] [place] [address] 11 Jun, 2011 [facility] [address] [id number] [place] [address] Jun, [facility] [place] [facility] [address] [id number] [place] [address] 06 Jun, 2011 [facility] [place] [facility] [address] [id number] [place] [address] 20 May, 2011 [facility] [place] [facility] [address] [id number] [place] [address] 29 Apr, 2011 [facility] [address] [id number], [place] [address] October, [facility] [address] [id number] [address] May, [facility] [address] [facility] [id number], [place] [address] May, [facility] [id number] [address] Apr, [facility] [id number], [place] [address] Jan, [facility] [id number], [place] [address] Dec, [facility] [id number], [place] [address] Sep, [facility] [id number], [place] [address] Sep, [facility] [id number], [place] [address] Jul, [facility] [address] [id number] [address] May, [facility] [address] [id number], [place] [address] Jan, IMMUNIZATIONS No Known Immunizations SOCIAL HISTORY Never Assessed REASON FOR VISIT med request PLAN OF CARE VITAL SIGNS MEDICATIONS Medication Instructions Dosage Frequency Start Date End Date Duration Status Hydrochlorothiazide 50 mg Orally Once a day 1 tablet 24h 30 Active RESULTS No Results PROCEDURES No Known [...]
--- OUTSIDE RECORDS SUMMARY | 2018-05-04 07:28 | XMS REPORT ---
Author Author SHAWN MORENA Organization [facility] Address [address] [place] [address] Care Team Providers Care Cartoon Designer Name Role Phone KATHY ESCOBARIN Unavailable PROBLEMS Type Condition ICD9-CM Code EQV05-KT Code Onset Dates Condition Status SNOMED Code Problem Mild persistent asthma without complication J45.30 Active 148196822 Problem Edema, unspecified type R60.9 Active 238092614 Problem Gastroesophageal reflux disease with esophagitis K21.0 Active 021369804 Problem Essential hypertension I10 Active 76274925 Problem Moderate persistent asthma with exacerbation J45.41 Active 015139940 Problem Other chronic pain G89.29 Active 45045236 Problem Esophageal abnormality K22.9 Active 36983973 Problem Hammer toe of right foot M20.41 Active 074427414 Problem Abnormal EKG R94.31 Active 240848099 Problem Right upper quadrant abdominal pain R10.11 Active 395973061 ALLERGIES No Information ENCOUNTERS Encounter Location Date Diagnosis [place] [address] [address]- [address]87 Dec, BMI 40.0-44.9, adult Z68.41 ; Other chronic pain G89.29 and Pain in left hip M25.552 [place] [address] [place] [id number] [place] [address] 94312- 7558 Nov, Abscess L02.91 [place] [address] [place] [id number] [place] [address] 77922- 1934 Nov, Moderate persistent asthma with exacerbation J45.41 [place] [address] 8[address]36- 0414 Nov, Low back pain M54.5 and Other chronic pain G89.29 [place] [address] 03331- 0869 October, Abscess L02.91 [place] [id number] [place] [address] 39468- 1895 October, Cutaneous abscess of back excluding buttocks L02.212 and BMI 40.0-44.9, adult Z68.41 [place] [id number] [place] [address] 33769- 2743 October, [place] [address] [place] [id number] [place] [address] 76184- 9658 October, [place] [address] [place] [id number] [place] [address] 23235- 2284 Sep, [place] [address] [place] [id number] [place] [address] 14377- 8523 Sep, Abscess L02.91 [place] [address] [place] [id number] [place] [address] 65404- 6844 Sep, Right upper quadrant abdominal pain R10.11 ; Mild persistent asthma without complication J45.30 and BMI 40.0-44.9, adult Z68.41 [place] [address] [place] [id number] [place] [address] 28304- 4675 Aug, Abscess L02.91 and BMI 40.0-44.9, adult Z68.41 [place] [address] [place] [id number] [place] [address] 59798- 5535 Aug, Edema, unspecified type R60.9 [place] [address] [place] [id number] [place] [address] 66633- 5287 Aug, Right upper quadrant abdominal pain R10.11 ; Abnormal EKG R94.31 ; Esophageal abnormality K22.9 and BMI 40.0-44.9, adult Z68.41 [place] [id number] [place] [address] 00456- 5923 Aug, Hammer toe of right foot M20.41 and Onychomycosis B35.1 [facility] [address] [place] [id number] [place] [address] 76623 -8065 Aug, Myalgia M79.1 [place] [address] [place] [id number] [place] [address] 53891- 2334 Aug, [place] [address] [place] [id number] [place] [address] 84968- 1967 Aug, Annual physical exam Z00.00 ; BMI 40.0-44.9, adult Z68.41 ; Mild persistent asthma without complication J45.30 ; Gastroesophageal reflux disease with esophagitis K21.0 ; Acute right-sided thoracic back pain M54.6 ; Trouble breathing R06.89 and Neck pain M54.2 [place] [address] [place] [id number] [place] [address] 05737- 9052 28 Jul, 2017 Mild persistent asthma without complication J45.[address] 5[address]75- 8064 Jul, Edema, unspecified type R60.9 [place] [id number] [place] [address] 26727- 5580 Jun, Edema, unspecified type R60.9 [place] [id number] [place] [address] 13903- 0840 Jun, Moderate persistent asthma with exacerbation J45.41 [place] [id number] [place] [address] 47875- 6799 May, Edema, unspecified type R60.9 [place] [id number] [place] [address] 94340- 2362 May, Moderate persistent asthma with exacerbation J45.41 and Hammer toe of right foot M20.41 [place] [id number] [place] [address] 89126- 7348 04 May, 2017 Moderate persistent asthma without complication J45.40 ; Dysfunction of left eustachian tube H69.82 and BMI 45.0-49.9, adult Z68.42 [place] [address] [place] [address] 24003- 3192 Apr, Edema, unspecified type R60.9 [place] [address] [place] [id number] [place] [address] 50095- 3228 Mar, Edema, unspecified type R60.9 [place] [address] [place] [id number] [place] [address] 26963- 6352 Feb, Edema, unspecified type R60.9 [place] [address] [place] [id number] [place] [address] 28796- 8547 Jan, Edema, unspecified type R60.9 [place] [address] [place] [id number] [place] [address] 11094- 0866 Jan, Mild persistent asthma without complication J45.30 [place] [address] [place] [id number] [place] [address] 16916- 0472 Dec, Edema, unspecified type R60.9 [place] [address] [place] [id number] [place] [address] 43158- 3049 Nov, Edema, unspecified type R60.9 and Essential hypertension I10 [place] [address] [place] [id number] [place] [address] 04618- 5800 October, Pain in left knee M25.562 [place] [address] [place] [id number] [place] [address] 80672- 0097 October, Pain in left knee M25.562 [place] [address] [place] [id number] [place] [address] 08966- 3996 08 Oct, 2016 [place] [address] [place] [id number] [place] [address] 82304- 1919 Sep, [place] [address] [place] [id number] [place] [address] 13197- 8032 Sep, Mild persistent asthma without complication J45.30 [place] [address] [place] [id number] [place] [address] 36025- 2935 Sep, Pain in left knee M25.562 [facility] [address] [place] [id number] [place] [address] 90044- 8629 23 Aug, 2016 Acute nasopharyngitis J00 and Seasonal allergic rhinitis due to pollen J30.1 [facility] [address] [place] [id number] [place] [address] 35667- 1462 16 Aug, 2016 [facility] [address] [place] [id number] [place] [address] 71637- 5542 Aug, Arthralgia, unspecified joint M25.50 and Pain in left knee M25.562 [facility] [address] [place] [id number] [place] [address] 08198- 5584 Aug, Mild persistent asthma without complication J45.30 [facility] [address] [place] [id number] [place] [address] 76616- 3751 Jul, Mild persistent asthma without complication J45.30 [facility] [address] [place] [id number] [place] [address] 25155- 4459 Jul, Pain in left knee M25.562 [facility] [address] [place] [id number] [place] [address] 43965- 5512 Jun, [facility] [address] [place] [id number] [place] [address] 19435 -1525 Jun, [facility] [address] [place] [id number] [place] [address] 37806- 3901 Jun, Mild persistent asthma without complication J45.30 [facility] [address] [place] [id number] [place] [address] 98161- 4315 May, [facility] [address] [place] [id number] [place] [address] 86481- 1309 Apr, Restrictive lung disease J98.4 [facility] [address] [place] [id number] [place] [address] 33631- 3320 Apr, [facility] [address] [place] [id number] [place] [address] 52717- 6928 Apr, Mild persistent asthma without complication J45.30 [facility] [address] [address]1 Mar, Sore throat J02.9 and Post-nasal drainage R09.82 [facility] [id number] [place] [address] 82896- 5969 Mar, [facility] [address] [place] [id number] [place] [address] 76238- 6953 Feb, [place] [address] [place] [id number] [place] [address] 69851- 5892 Feb, Mild persistent asthma without complication J45.30 [facility] [address] [place] [id number] [place] [address] 64285- 3887 Feb, Arthralgia, unspecified joint M25.50 [place] [address] [place] [id number] [place] [address] 03853- 7049 Feb, Edema, unspecified type R60.9 ; Arthralgia, unspecified joint M25.50 ; Mild persistent asthma without complication J45.30 ; Essential hypertension I10 ; Gastroesophageal reflux disease without esophagitis K21.9 and Major depressive disorder with single episode, remission status unspecified F32.9 [place] [address] [place] [address] 96268- 2928 Jan, Edema, unspecified type R60.9 ; Essential hypertension I10 ; Mild persistent asthma without complication J45.30 ; Gastroesophageal reflux disease with esophagitis K21.0 ; Arthralgia, unspecified joint M25.50 and Major depressive disorder with single episode, remission status unspecified F32.9 [place] [address] [place] [id number] [place] [address] 37517- 8562 Jan, [facility] [address] [place] [id number] [place] [address] 10768- 2302 Dec, [place] [address] [place] [id number] [place] [address] 26154- 9276 Dec, [facility] [address] [facility] [id number] [address]- 4218 Dec, [facility] [address] [address]- 0036 Nov, Bilateral edema of lower extremity R60.0 [facility] [address] [facility] [id number] [address] 2546 Nov, Bilateral edema of lower extremity R60.0 [facility] [address] [facility] [id number] [place] [address] Nov, [facility] [address] [place] [id number] [place] [address] 02323- 8916 Nov, [facility] [address] [address]- 3656 October, [facility] [address] [place] [id number] [place] [address] 90841- 5916 Sep, [facility] [address] [address]- 9355 Aug, Acute sinusitis J01.90 [facility] [address] [address]- 3366 Aug, [facility] [address] [address]- 7206 Aug, [facility] [address] [address]- 4136 Jul, [facility] [address] [address]- 2546 Jul, Pharyngitis J02.9 [facility] [address] [address]- 1256 Jul, [facility] [address] [address]- 9576 Jun, Pain in left knee M25.562 [facility] [address] [place] [id number] [address]- 1882 Jun, [facility] [address] [place] [id number] [place] [address] 94555 -5160 May, Upper respiratory symptom R09.89 [facility] [address] [place] [id number] [place] [address] 67649- 3625 May, [facility] [address] [place] [id number] [place] [address] 63064- 4842 Apr, Costochondritis M94.0 and Knee pain, left M25.562 [facility] [address] [place] [id number] [place] [address] 05543- 7426 Apr, [facility] [address] [place] [id number] [place] [address] 67759- 4937 Mar, Eustachian tube dysfunction, left H69.82 [facility] [address] [place] [id number] [place] [address] 57347- 8468 Mar, [facility] [address] [place] [id number] [place] [address] 38154- 4328 Mar, [facility] [address] [place] [id number] [place] [address] 10959- 6844 Mar, [facility] [address] [place] [id number] [place] [address] 11660- 0932 Feb, [facility] [address] [place] [id number] [place] [address] 05456- 5061 Feb, [facility] [address] [place] [id number] [place] [address] 44884- 0139 Feb, [facility] [address] [place] [id number] [place] [address] 05446- 9692 Jan, Asthma 493.90 [facility] [address] [place] [id number] [place] [address] 58268- 4197 Dec, [facility] [address] [place] [address]- 2131 Dec, [facility] [address] 1048 Dec, [facility] [address] [address]- 8953 Dec, [facility] [address] [address]- 2616 Dec, Asthma, unspecified, unspecified status 493.90 [facility] [address] [place] [address] 66856- 4541 Nov, [facility] [address] [place] [id number] [place] [address] 759482- 4537 Nov, Asthma, unspecified, unspecified status 493.90 [facility] [address] [address]- 7806 October, Asthma, unspecified, unspecified status 493.90 [facility] [address] [address]- 0692 October, [facility] [address] [place] [id number] [place] [address] 80888- 0935 October, Contact dermatitis 692.9 and Candidiasis of skin 112.3 [facility] [address] [address]- 5714 Sep, [facility] [address] [address]- 9931 Sep, [facility] [address] 8275 Aug, [facility] [address] [place] [id number] [address]109 Aug, [facility] [address] [address]- 1224 Aug, [facility] [address] [place] [id number] [address]- 5353 Aug, [facility] [place] [facility] [address] [id number] [place] [address]- 8743 Jul, [facility] [place] [facility] [address] [id number] [place]- 5136 Jul, [facility] [place] [facility] [address] [id number] [place] [address]- 3693 Jun, [facility] [place] [facility] [address] [id number] [place] [address]- 0093 Jun, [facility] [place] [facility] [address] [id number] [place] [address]- 2441 May, [facility] [place] [facility] [address] [id number] [place] [address]- 4769 May, [facility] [place] [facility] [address] [id number] [place] [address]- 9765 May, [facility] [place] [facility] [address] [id number] [place] [address]- 4784 May, [facility] [place] [facility] [address] [id number] [place] [address]- 8773 May, [facility] [place] [facility] [address] [id number] [place] [address]- 7419 May, [facility] [place] [facility] [address] [id number] [place] [address]- 2128 Apr, [facility] [place] [facility] [address] [id number] [place] [address]- 8812 Apr, [facility] [place] [facility] [address] [id number] [place] [address]- 0480 15 Feb, 2014 [facility] [place] [facility] [address] [id number] [place] [address]- 1798 15 Feb, 2014 [facility] [place] [facility] [address] [id number] [place] [address]- 0455 Feb, [facility] [place] [facility] [address] [id number] [place] [address]- 6172 Feb, [facility] [place] [facility] [address] [id number] [place] [address]- 9172 05 Feb, 2014 [facility] [place] [facility] [address] [id number] [place] [address]- 0076 Feb, [facility] [place] [facility] [address] [id number] [place] [address]- 8526 Jan, [facility] [place] [facility] [address] [id number] [place] [address]- 7227 Jan, [facility] [place] [facility] [address] [id number] [place] [address]- 6507 Jan, [facility] [place] [facility] [address] [id number] [place] [address]- 1478 Jan, [facility] [place] [facility] [address] [id number] [place] [address]- 1726 Jan, [facility] [place] [facility] [address] [id number] [place] [address]- 1289 Jan, [facility] [place] [facility] [address] [id number] [place] [address]- 1140 Dec, [facility] [place] [facility] [address] [id number] [place] [address]- 9794 Dec, [facility] [place] [facility] [address] [id number] [place] [address]- 2062 Nov, [facility] [place] [facility] [address] [id number] [place] [address]- 2585 Nov, [facility] [place] [facility] [address] [id number] [place] [address]- 2482 Nov, [facility] [place] [facility] [address] [id number] [place] [address]- 2113 Nov, [facility] [place] [facility] [address] [id number] [place] [address]- 3380 Nov, [facility] [place] [facility] [address] [id number] [place] [address]- 4078 Nov, [facility] [place] [facility] [address] [id number] [place] [address]- 8581 Nov, [facility] [place] [facility] [address] [id number] [place] [address]- 4179 Nov, [facility] [place] [facility] [address] [id number] [place] [address]- 1961 Nov, [facility] [place] [facility] [address] [id number] [place] [address]- 6052 Nov, [facility] [place] [facility] [address] [id number] [place] [address]- 3008 Nov, [facility] [place] [facility] [address] [id number] [place] [address]- 0906 Nov, [facility] [place] [facility] [address] [id number] [place] [address]- 4275 Nov, [facility] [place] [facility] [address] [id number] [place] [address]- 6880 October, [facility] [place] [facility] [address] [id number] [place] [address]- 5118 October, [facility] [place] [facility] [address] [id number] [place] [address]- 5920 October, [facility] [place] [facility] [address] [id number] [place] [address]- 0344 October, [facility] [place] [facility] [address] [id number] [place] [address]- 7721 Sep, [facility] [place] [facility] [address] [id number] [place] [address]- 8800 Sep, [facility] [place] [facility] [address] [id number] [place] [address]- 1978 Sep, [facility] [place] [facility] [address] [id number] [place] [address]- 4145 Sep, [facility] [place] [facility] [address] [id number] [place] [address]- 0821 Aug, [facility] [place] [facility] [address] [id number] [place] [address]- 0448 Aug, [facility] [place] [facility] [address] [id number] [place] [address]- 3415 Jul, [facility] [place] [facility] [address] [id number] [place] [address]- 3597 Jul, [facility] [place] [facility] [address] [id number] [place] [address]- 8427 Jun, [facility] [place] [facility] [address] [id number] [place] [address]- 9969 Jun, [facility] [place] [facility] [address] [id number] [place] [address]- 3914 Mar, [facility] [place] [facility] [address] [id number] [place] [address]- 8033 Mar, [facility] [place] [facility] [address] [id number] [place] [address]- 8657 Mar, [facility] [place] [facility] [address] [id number] [place] [address]- 2612 Mar, [facility] [place] [facility] [address] [id number] [place] [address]- 3732 Mar, [facility] [place] [facility] [address] [id number] [place] [address]- 7775 Feb, [facility] [place] [facility] [address] [id number] [place] [address]- 5459 Feb, [facility] [place] [facility] [address] [id number] [place] [address]- 9384 Dec, [facility] [place] [facility] [address] [id number] [place] [address]- 7206 Nov, [facility] [place] [facility] [address] [id number] [place] [address]- 5220 October, [facility] [address] [id number] [place] [address]- 6502 Sep, [facility] [address] [id number] [place] [address]- 6966 Sep, [facility] [address] [id number] [place] [address]- 5658 Aug, [facility] [address] [id number] [place] [address] Aug, [facility] [address] [id number] [place] [address] Aug, [facility] [address] [id number] [place] [address] Aug, [facility] [address] [id number] [place] [address] Jun, [facility] [address] [id number] [place] [address] Jun, [facility] [address] [id number] [place] [address] Jun, [facility] [address] [id number] [place] [address] May, [facility] [address] [id number] [place] [address] May, [facility] [address] [id number] [place] [address] Apr, [facility] [place] [facility] [address] [id number] [place] [address] Apr, [facility] [address] [id number] [place] [address] Apr, [facility] [address] [id number] [place] [address] Apr, [facility] [place] [facility] [address] [id number] [place] [address] Apr, [facility] [place] [facility] [address] [id number] [place] [address] Apr, [facility] [place] [facility] [address] [id number] [place] [address] Apr, [facility] [place] [facility] [address] [id number] [place] [address] Mar, [facility] [place] [facility] [address] [id number] [place] [address] Mar, [facility] [place] [facility] [address] [id number] [place] [address] 18 Feb, 2012 [facility] [place] [facility] [address] [id number] [place] [address] 17 Feb, 2012 [facility] [place] [facility] [address] [id number] [place] [address] 13 Feb, 2012 [facility] [place] [facility] [address] [id number] [place] [address] 15 Jan, 2012 [facility] [place] [facility] [address] [id number] [place] [address] Jan, [facility] [place] [facility] [address] [id number] [place] [address] Jan, [facility] [place] [facility] [address] [id number] [place] [address] Jan, [facility] [place] [facility] [address] [id number] [place] [address] Dec, [facility] [place] [facility] [address] [id number] [place] [address] Dec, [facility] [place] [facility] [address] [id number] [place] [address] Dec, [facility] [place] [facility] [address] [id number] [place] [address] 17 Dec, 2011 [facility] [address] [id number] [place] [address] 10 Dec, 2011 [facility] [address] [id number] [place] [address] 14 Nov, 2011 [facility] [address] [id number] [place] [address] 14 Nov, 2011 [facility] [address] [id number] [place] [address] Nov, [facility] [address] [id number] [place] [address] Nov, [facility] [address] [id number] [place] [address] October, [facility] [address] [id number] [place] [address] October, [facility] [address] [id number] [place] [address] October, [facility] [address] [id number] [place] [address] October, [facility] [address] [id number] [place] [address] October, [facility] [address] [id number] [place] [address] Sep, [facility] [address] [id number] [place] [address] 20 Sep, 2011 [facility] [place] [facility] [address] [id number] [place] [address] 12 Sep, 2011 [facility] [place] [facility] [address] [id number] [place] [address] Sep, [facility] [address] [id number] [place] [address] Sep, [facility] [place] [facility] [address] [id number] [place] [address] 29 Aug, 2011 [facility] [place] [facility] [address] [id number] [place] [address] 28 Aug, 2011 [facility] [place] [facility] [address] [id number] [place] [address] 27 Aug, 2011 [facility] [place] [facility] [address] [id number] [place] [address] 26 Aug, 2011 [facility] [place] [facility] [address] [id number] [place] [address] 23 Aug, 2011 [facility] [place] [facility] [address] [id number] [place] [address] 20 Aug, 2011 [facility] [place] [facility] [address] [id number] [place] [address] 19 Aug, 2011 [facility] [place] [facility] [address] [id number] [place] [address] 17 Aug, 2011 [facility] [place] [facility] [address] [id number] [place] [address] 18 Jun, 2011 [facility] [place] [facility] [address] [id number] [place] [address] Jun, [facility] [place] [facility] [address] [id number] [place] [address] Jun, [facility] [place] [facility] [address] [id number] [address] 10 Jun, 2011 [facility] [place] [facility] [address] [id number] [place] [address] 06 Jun, 2011 [facility] [place] [facility] [address] [id number] [place] [address] May, [facility] [place] [facility] [address] [id number] [place] [address] 29 Apr, 2011 [facility] [place] [facility] [address] [id number] [place] [address] October, [facility] [id number] [address] May, [facility] [id number] [place] [address] May, [facility] [id number] [place] [address] Apr, [facility] [id number] [place] [address] Jan, [facility] [id number] [place] [id number] Dec, [facility] [id number] [place] [address] Sep, [facility] [id number] [place] [address] Sep, [facility] [id number] [address] Jul, [facility] [id number] [place] [address]44[address] May, [facility] [id number] [address] Jan, IMMUNIZATIONS No Known Immunizations SOCIAL HISTORY Never Assessed REASON FOR VISIT hammer toe rt. foot. Consult Dr. Escobar;[facility] RT(R) PLAN OF CARE Activity Details Follow Up prn Reason: VITAL SIGNS Height 64 in 2017-08-28 Blood pressure systolic 124 mmHg 2017-08-28 Blood pressure diastolic 78 mmHg 2017-08-28 MEDICATIONS Medication Instructions Dosage Frequency Start Date End Date Duration Status Ibuprofen 800 MG Orally Three times a day 1 tablet 8h Unknown Albuterol Sulfate (2.5 MG/3ML) 0.083% inhale 3 milliliters (2.5 mg) by nebulization route 4 times per day PRN for wheezing or cough Aug, Unknown Omeprazole 20 MG TAKE ONE CAPSULE BY MOUTH ONCE DAILY 30 Unknown Wellbutrin XL 150 MG Orally Once a day 1 tablet in the morning 24h Unknown Lamisil 250 MG Orally Once a day 1 tablet 24h 23 Aug, 2017 Sep, 30 days Active Cyclobenzaprine HCl 5 MG TAKE ONE TABLET BY MOUTH TWICE DAILY 30 Unknown Proventil HFA 108 (90 Base) MCG/ACT Inhalation every 4 hrs 2 puffs as needed 4h Feb, Unknown Tramadol HCl 50 MG Orally 1 tablet 3 times a day as needed 1 tablet 28 days Unknown Advair Diskus 250-50 MCG/DOSE Inhalation Twice a day 1 puff 12h 26 Nov, 2014 60 days Unknown Spiriva Respimat 1.25 MCG/ACT Inhalation Once a day 2 puffs 24h 16 Aug, 2016 90 days Unknown Hydrochlorothiazide 50 mg TAKE ONE TABLET BY MOUTH ONCE DAILY 30 Unknown Losartan Potassium 25 MG TAKE ONE TABLET BY MOUTH ONCE DAILY 30 Unknown RESULTS Name Result Date Reference Range LIVER PANEL (LFT) 2017-08-28 PROTEIN, TOTAL 7.7 6.1-8.1 ALBUMIN 4.0 3.6-5.1 GLOBULIN 3.7 1.9-3.7 ALBUMIN/GLOBULIN RATIO 1.1 1.0-2.5 BILIRUBIN, TOTAL 0.5 0.2-1.2 BILIRUBIN, DIRECT 0.1 < OR=0.2 BILIRUBIN, INDIRECT 0.4 0.2-1.2 ALKALINE PHOSPHATASE 132 33-130 AST 22 10-35 ALT 21 6-29 PROCEDURES Procedure Date Ordered Result Body Site HEPATIC FUNCTION PANEL August 28, 2017 VENIPUNCT, ROUTINE* August 28, 2017 INSTRUCTIONS MEDICATIONS ADMINISTERED No Known Medications [...]
--- OUTSIDE RECORDS SUMMARY | 2018-05-04 07:29 | XMS REPORT ---
Author Author JENNIFER CANCINO Organization [facility] Address [address] [place] [address] Care Team Providers Care Entry Level Administrative Assistant Name Role Phone JENNIFER CANCINO Unavailable PROBLEMS Type Condition ICD9-CM Code [id number] Code Onset Dates Condition Status SNOMED Code Problem Mild persistent asthma without complication J45.30 Active 937392594 Problem Edema, unspecified type R60.9 Active 887308208 Problem Gastroesophageal reflux disease with esophagitis K21.0 Active 553089568 Problem Essential hypertension I10 Active 84808102 Problem Moderate persistent asthma with exacerbation J45.41 Active 168626846 Problem Other chronic pain G89.29 Active 70122661 Problem Esophageal abnormality K22.9 Active 95839819 Problem Hammer toe of right foot M20.41 Active 550023831 Problem Abnormal EKG R94.31 Active 386449280 Problem Right upper quadrant abdominal pain R10.11 Active 903138113 ALLERGIES No Information ENCOUNTERS Encounter Location Date Diagnosis [place] [id number] [place] [address] 14049- 7304 Dec, BMI 40.0-44.9, adult Z68.41 ; Other chronic pain G89.29 and Pain in left hip M25.552 [place] [id number] [place] [address] 73540- 3290 Nov, Abscess L02.91 [place] [id number] [place] [address] 16988- 5548 Nov, Moderate persistent asthma with exacerbation J45.41 [place] [id number] [place] [address] 39484- 9270 Nov, Low back pain M54.5 and Other chronic pain G89.29 [place] [id number] [place] [address] 73528- 4288 October, Abscess L02.91 [facility] [id number] [place] [address] 65241- 7257 October, Cutaneous abscess of back excluding buttocks L02.212 and BMI 40.0-44.9, adult Z68.41 [place] [id number] [place] [address] 30191- 1581 October, [place] [address] 30144- 4330 October, [place] [id number] [place] [address] 83632- 1232 Sep, [place] [address] 60708- 3530 Sep, Abscess L02.91 [place] [address] 46811- 7119 Sep, Right upper quadrant abdominal pain R10.11 ; Mild persistent asthma without complication J45.30 and BMI 40.0-44.9, adult Z68.41 [place] [address] 85545- 5432 Aug, Abscess L02.91 and BMI 40.0-44.9, adult Z68.41 [place] [id number] [place] [address] 46144- 1787 Aug, Edema, unspecified type R60.9 [place] [id number] [place] [address] 88330- 7251 Aug, Right upper quadrant abdominal pain R10.11 ; Abnormal EKG R94.31 ; Esophageal abnormality K22.9 and BMI 40.0-44.9, adult Z68.41 [place] [id number] [place] [address] 46349- 0130 Aug, Hammer toe of right foot M20.41 and Onychomycosis B35.1 [facility] [address] [address] Aug, Myalgia M79.1 [place] [address] 60222- 5058 Aug, [place] [address] 70831- 6521 Aug, Annual physical exam Z00.00 ; BMI 40.0-44.9, adult Z68.41 ; Mild persistent asthma without complication J45.30 ; Gastroesophageal reflux disease with esophagitis K21.0 ; Acute right-sided thoracic back pain M54.6 ; Trouble breathing R06.89 and Neck pain M54.2 [place] [address] 08561- 6365 28 Jul, 2017 Mild persistent asthma without complication J45.[address] 67354- 3831 Jul, Edema, unspecified type R60.[address] 66696- 9082 Jun, Edema, unspecified type R60.[address] 96399- 8472 Jun, Moderate persistent asthma with exacerbation J45.[address] 58264- 4587 May, Edema, unspecified type R60.9 [place] [address] 23771- 5182 May, Moderate persistent asthma with exacerbation J45.41 and Hammer toe of right foot M20.[address] 52040- 2275 04 May, 2017 Moderate persistent asthma without complication J45.40 ; Dysfunction of left eustachian tube H69.82 and BMI 45.0-49.9, adult Z68.[address] [place] [address]- 9645 Apr, Edema, unspecified type R60.9 [facility] [id number] [place] [address] 65132- 8697 Mar, Edema, unspecified type R60.9 [facility] [id number] [place] [address] 88726- 4807 Feb, Edema, unspecified type R60.9 [facility] [id number] [place] [address] 36487- 2679 Jan, Edema, unspecified type R60.9 [place] [address] 69474- 2072 Jan, Mild persistent asthma without complication J45.30 [place] [id number] [place] [address] 96124- 2052 Dec, Edema, unspecified type R60.9 [place] [id number] [place] [address] 33116- 6180 Nov, Edema, unspecified type R60.9 and Essential hypertension I10 [place] [id number] [place] [address] 64288- 8823 October, Pain in left knee M25.562 [facility] [id number] [place] [address] 57582- 7773 October, Pain in left knee M25.562 [facility] [id number] [place] [address] 20970- 4165 October, [facility] [id number] [place] [address] 47105- 2236 Sep, [facility] [id number] [place] [address] 28862- 7574 Sep, Mild persistent asthma without complication J45.30 [facility] [id number] [place] [address] 96729- 2740 Sep, Pain in left knee M25.562 [facility] [address] [place] [address] 48438- 3968 23 Aug, 2016 Acute nasopharyngitis J00 and Seasonal allergic rhinitis due to pollen J30.1 [facility] [id number] [place] [address] 45441- 4155 16 Aug, 2016 [facility] [id number] [place] [address] 82117- 8185 13 Aug, 2016 Arthralgia, unspecified joint M25.50 and Pain in left knee M25.562 [facility] [id number] [place] [address] 87778- 3975 08 Aug, 2016 Mild persistent asthma without complication J45.30 [facility] [id number] [place] [address] 90111- 5301 28 Jul, 2016 Mild persistent asthma without complication J45.30 [facility] [id number] [place] [address] 19307- 1363 Jul, Pain in left knee M25.562 [facility] [id number] [place] [address] 21818- 6173 Jun, [facility] [id number] [place] [address] 66787 -9927 Jun, [facility] [id number] [place] [address] 80861- 4898 Jun, Mild persistent asthma without complication J45.30 [facility] [id number] [place] [address] 76860- 1628 May, [facility] [id number] [place] [address] 62316- 8196 Apr, Restrictive lung disease J98.4 [facility] [id number] [place] [address] 65153- 9801 Apr, [facility] [id number] [place] [address] 82653- 8434 Apr, Mild persistent asthma without complication J45.30 [facility] [address] [address] Mar, Sore throat J02.9 and Post-nasal drainage R09.82 [facility] [address] [address]- 1717 Mar, [facility] [id number] [place] [address] 27916- 5519 Feb, [facility] [id number] [place] [address] 02904- 6120 Feb, Mild persistent asthma without complication J45.30 [facility] [id number] [place] [address] 10124- 0535 Feb, Arthralgia, unspecified joint M25.50 [facility] [id number] [place] [address] 41419- 3127 Feb, Edema, unspecified type R60.9 ; Arthralgia, unspecified joint M25.50 ; Mild persistent asthma without complication J45.30 ; Essential hypertension I10 ; Gastroesophageal reflux disease without esophagitis K21.9 and Major depressive disorder with single episode, remission status unspecified F32.9 [facility] [address] [address]- 4381 Jan, Edema, unspecified type R60.9 ; Essential hypertension I10 ; Mild persistent asthma without complication J45.30 ; Gastroesophageal reflux disease with esophagitis K21.0 ; Arthralgia, unspecified joint M25.50 and Major depressive disorder with single episode, remission status unspecified F32.9 [facility] [address] [place] [address] 63668- 7029 Jan, [facility] [id number] [place] [address] 33009- 6301 Dec, [facility] [address] [place] [address] 39763- 9495 Dec, [facility] [address], [place] [address]- 9784 Dec, [facility] [address] [address]- 7914 Nov, Bilateral edema of lower extremity R60.0 [facility] [address] [place] [address]- 7056 Nov, Bilateral edema of lower extremity R60.0 [facility] [address] [place] [address] -6319 Nov, [facility] [address] [place] [address] 18715- 4062 Nov, [facility] [address] [address]- 4906 October, [facility] [address] [place] [address] 27544- 3845 Sep, [facility] [address] [address] 2542 Aug, Acute sinusitis J01.90 [facility] [address], [place] [address]- 0256 Aug, [facility] [address] [address]- 2485 Aug, [facility] [address], [place] [address] 2546 Jul, [facility] [address], [place] [address] 2546 Jul, Pharyngitis J02.9 [facility] [address], [place] [address]- 2546 05 Jul, 2015 [facility] [address], [place] [address]- 2546 Jun, Pain in left knee M25.562 [facility] [id number] [place] [address] 75592- 7528 Jun, [facility] [id number] [place] [address] 28664 -9228 May, Upper respiratory symptom R09.89 [facility] [id number] [place] [address] 22645- 4695 May, [facility] [id number] [place] [address] 13812- 8033 Apr, Costochondritis M94.0 and Knee pain, left M25.562 [facility] [id number] [place] [address] 10839- 1399 Apr, [facility] [id number] [place] [address] 76447- 8438 Mar, Eustachian tube dysfunction, left H69.82 [facility] [id number] [place] [address] 37966- 6478 Mar, [facility] [id number] [place] [address] 85959- 7317 Mar, [facility] [id number] [place] [address] 10354- 3932 Mar, [facility] [id number] [place] [address] 47262- 9310 Feb, [facility] [id number] [place] [address] 79333- 9052 Feb, [facility] [id number] [place] [address] 68596- 0276 Feb, [facility] [id number] [place] [address] 01481- 7709 Jan, Asthma 493.90 [facility] [id number] [place] [address] 02931- 7023 Dec, [facility] [id number] [place] [address] 85295- 3836 Dec, [facility] [address], [place] [address]- 5433 Dec, [facility] [address], [place] [address]- 1686 Dec, [facility] [address], [place] [address]- 0826 Dec, Asthma, unspecified, unspecified status 493.90 [facility] [address], [place] [address]- 4924 Nov, [facility] [address], [place] [address]- 1799 Nov, Asthma, unspecified, unspecified status 493.90 [facility] [address], [place] [address]- 3736 October, Asthma, unspecified, unspecified status 493.90 [facility] [address], [place] [address]- 0097 October, [facility] [address] 2416 October, Contact dermatitis 692.9 and Candidiasis of skin 112.3 [facility] [address], [place] [address]- 9778 Sep, [facility] [address], [place] [address]- 5202 Sep, [facility] [address], [place] [address]- 8248 Aug, [facility] [address], [place] [address]- 7376 Aug, [facility] [id number] [address]- 9316 Aug, [facility] [address], [place] [address]- 3116 Aug, [facility] [place] [facility] [address] [id number] [place] [address]- 8469 Jul, [facility] [place] [facility] [address] [id number] [place] [address]- 4006 Jul, [facility] [place] [facility] [address] [facility] [id number] [place] [address]- 3026 Jun, [facility] [place] [facility] [address] [id number] [place] [address]- 6211 Jun, [facility] [place] [facility] [address] [id number] [place] [address]- 2360 May, [facility] [place] [facility] [address] [id number] [place] [address]- 6536 May, [facility] [place] [facility] [address] [id number] [place] [address]- 2755 May, [facility] [place] [facility] [address] [id number] [place] [address]- 6337 May, [facility] [place] [facility] [address] [id number] [place] [address]- 5845 May, [facility] [place] [facility] [address] [id number] [place] [address]- 4835 May, [facility] [place] [facility] [address] [id number] [place] [address]- 5437 Apr, [facility] [place] [facility] [address] [id number] [place] [address]- 3380 Apr, [facility] [place] [facility] [address] [id number] [place] [address]- 4847 Feb, [facility] [place] [facility] [address] [id number] [place] [address]- 6778 15 Feb, 2014 [facility] [place] [facility] [address] [id number] [place] [address]- 9398 Feb, [facility] [place] [facility] [address] [id number] [place] [address]- 6328 Feb, [facility] [place] [facility] [address] [id number] [place] [address]- 5345 Feb, [facility] [place] [facility] [address] [id number] [place] [address]- 9672 Feb, [facility] [place] [facility] [address] [id number] [place] [address]- 2154 Jan, [facility] [place] [facility] [address] [id number] [place] [address]- 8528 Jan, [facility] [place] [facility] [address] [id number] [place] [address]- 6677 Jan, [facility] [place] [facility] [address] [id number] [place] [address]- 8883 Jan, [facility] [place] [facility] [address] [id number] [place] [address]- 6681 Jan, [facility] [place] [facility] [address] [id number] [place] [address]- 9725 Jan, [facility] [place] [facility] [address] [id number] [place] [address]- 5285 Dec, [facility] [place] [facility] [address] [id number] [place] [address]- 0087 Dec, [facility] [place] [facility] [address] [id number] [place] [address]- 0509 Nov, [facility] [place] [facility] [address] [id number] [place] [address]- 3446 Nov, [facility] [place] [facility] [address] [id number] [place] [address]- 9641 Nov, [facility] [place] [facility] [address] [id number] [place] [address]- 1665 Nov, [facility] [place] [facility] [address] [id number] [place] [address]- 1769 Nov, [facility] [place] [facility] [address] [id number] [place] [address]- 0454 Nov, [facility] [place] [facility] [address] [id number] [place] [address]- 6392 Nov, [facility] [place] [facility] [address] [id number] [place] [address]- 1748 Nov, [facility] [place] [facility] [address] [id number] [place] [address]- 1337 Nov, [facility] [place] [facility] [address] [id number] [place] [address]- 4607 Nov, [facility] [place] [facility] [address] [id number] [place] [address]- 1754 Nov, [facility] [place] [facility] [address] [id number] [place] [address]- 7647 Nov, [facility] [place] [facility] [address] [id number] [place] [address]- 7670 Nov, [facility] [place] [facility] [address] [id number] [place] [address]- 7614 October, [facility] [place] [facility] [address] [id number] [place] [address]- 5726 October, [facility] [place] [facility] [address] [id number] [place] [address]- 0672 October, [facility] [place] [facility] [address] [id number] [place] [address]- 5013 October, [facility] [place] [facility] [address] [id number] [place] [address]- 3211 Sep, [facility] [place] [facility] [address] [id number] [place] [address]- 6867 Sep, [facility] [place] [facility] [address] [id number] [place] [address]- 3283 Sep, [facility] [place] [facility] [address] [id number], [place] [address]- 9589 Sep, [facility] [place] [facility] [address] [id number] [place] [address]- 7136 Aug, [facility] [place] [facility] [address] [id number] 8453 Aug, [facility] [place] [facility] [address] [facility] [id number] [place] [address]- 6946 Jul, [facility] [place] [facility] [address] [id number] [place] [address]- 0529 Jul, [facility] [place] [facility] [address] [facility] [id number] [place] [address]- 1367 Jun, [facility] [place] [facility] [address] [id number] [place] [address]- 8790 Jun, [facility] [place] [facility] [address] [facility] [id number], [place] [address]- 8259 Mar, [facility] [place] [facility] [address] [id number] [place] [address]- 2198 Mar, [facility] [place] [facility] [address] [facility] [id number] [place] [address]- 8249 Mar, [facility] [place] [facility] [address] [facility] [id number] [place] [address]- 3011 Mar, [facility] [place] [facility] [address] [facility] [id number], [place] [address]- 9580 Mar, [facility] [place] [facility] [address] [id number], [place] [address]- 4888 Feb, [facility] [place] [facility] [address] [id number], [place] [address]- 2032 Feb, [facility] [place] [facility] [address] [facility] [id number], [place] [address]- 0473 Dec, [facility] [place] [facility] [address] [facility] [id number], [place] [address]- 5987 Nov, [facility] [place] [facility] [address] [id number] [place] [address]- 2402 October, [facility] [place] [facility] [address] [id number] [place] [address]- 8332 Sep, [facility] [place] [facility] [address] [id number] [place] [address] Sep, [facility] [place] [facility] [address] [id number] [place] [address] Aug, [facility] [place] [facility] [address] [id number] [place] [address] Aug, [facility] [place] [facility] [address] [id number] [place] [address] Aug, [facility] [place] [facility] [address] [id number] [place] [address] Aug, [facility] [place] [facility] [address] [id number] [place] [address] Jun, [facility] [place] [facility] [address] [id number] [place] [address] Jun, [facility] [place] [facility] [address] [id number] [place] [address] Jun, [facility] [place] [facility] [address] [id number] [place] [address] May, [facility] [place] [facility] [address] [id number] [place] [address] May, [facility] [place] [facility] [address] [id number] [place] [address] Apr, [facility] [place] [facility] [address] [id number] [place] [address] Apr, [facility] [place] [facility] [address] [id number] [place] [address] Apr, [facility] [place] [facility] [address] [id number] [place] [address] Apr, [facility] [place] [facility] [address] [id number] [place] [address] Apr, [facility] [place] [facility] [address] [id number] [place] [address] Apr, [facility] [place] [facility] [address] [id number] [place] [address] Apr, [facility] [place] [facility] [address] [id number] [place] [address] Mar, [facility] [place] [facility] [address] [id number] [place] [address] Mar, [facility] [place] [facility] [address] [id number] [place] [address] 18 Feb, 2012 [facility] [place] [facility] [address] [id number] [place] [address] 17 Feb, 2012 [facility] [place] [facility] [address] [id number] [place] [address] 13 Feb, 2012 [facility] [place] [facility] [address] [id number] [place] [address] 15 Jan, 2012 [facility] [place] [facility] [address] [id number] [place] [address] Jan, [facility] [place] [facility] [address] [id number], [place] [address] Jan, [facility] [place] [facility] [address] [id number], [place] [address] Jan, [facility] [place] [facility] [address] [id number] [place] [address] Dec, [facility] [place] [facility] [address] [id number] [place] [address] Dec, [facility] [place] [facility] [address] [id number] [place] [address] Dec, [facility] [place] [facility] [address] [id number] [place] [address] 17 Dec, 2011 [facility] [place] [facility] [address] [id number] [place] [address] 10 Dec, 2011 [facility] [place] [facility] [address] [id number] [place] [address] 14 Nov, 2011 [facility] [place] [facility] [address] [id number] [place] [address] 14 Nov, 2011 [facility] [place] [facility] [address] [id number] [place] [address] Nov, [facility] [place] [facility] [address] [id number] [place] [address] Nov, [facility] [place] [facility] [address] [id number] [place] [address] October, [facility] [address] [id number] [place] [address] October, [facility] [place] [facility] [address] [id number] [place] [address] October, [facility] [place] [facility] [address] [id number] [place] [address] October, [facility] [place] [facility] [address] [id number] [place] [address] October, [facility] [place] [facility] [address] [id number] [place] [address] Sep, [facility] [place] [facility] [address] [id number] [place] [address] 20 Sep, 2011 [facility] [place] [facility] [address] [id number] [place] [address] Sep, [facility] [place] [facility] [address] [id number] [place] [address] Sep, [facility] [place] [facility] [address] [id number] [place] [address] Sep, [facility] [place] [facility] [address] [id number] [place] [address] 29 Aug, 2011 [facility] [address] [id number] [place] [address] 28 Aug, 2011 [facility] [place] [facility] [address] [id number] [place] [address] 27 Aug, 2011 [facility] [address] [id number] [place] [address] 26 Aug, 2011 [facility] [address] [id number] [place] [address] 23 Aug, 2011 [facility] [address] [id number] [place] [address] 20 Aug, 2011 [facility] [address] [id number] [place] [address]60 19 Aug, 2011 [facility] [address] [id number] [place] [address] 17 Aug, 2011 [facility] [address] [id number] [place] [address] 18 Jun, 2011 [facility] [address] [id number] [place] [address] Jun, [facility] [address] [id number] [place] [address] 11 Jun, 2011 [facility] [address] [id number] [place] [address] Jun, [facility] [place] [facility] [address] [id number] [place] [address] 06 Jun, 2011 [facility] [place] [facility] [address] [id number] [place] [address]606 20 May, 2011 [facility] [place] [facility] [address] [id number] [place] [address]183 29 Apr, 2011 [facility] [address] [id number], [place] [address] October, [facility] [address] [id number] [address] May, [facility] [address] [facility] [id number], [place] [address] May, [facility] [id number] [place] [address] Apr, [facility] [id number], [place] [address] Jan, [facility] [id number], [place] [address] Dec, [facility] [id number], [place] [address] Sep, [facility] [id number], [place] [address] Sep, [facility] [id number], [place] [address] Jul, [facility] [address] [id number], [place] [address] May, [facility] [address] [id number], [place] [address] Jan, IMMUNIZATIONS No Known Immunizations SOCIAL HISTORY Never Assessed REASON FOR VISIT Requests return call PLAN OF CARE VITAL SIGNS MEDICATIONS No Known Medications RESULTS No Results PROCEDURES No Known [...]
--- OUTSIDE RECORDS SUMMARY | 2018-05-04 07:30 | XMS REPORT ---
Author Author JENNIFER CANCINO Organization [facility] Address [address] [place] [address] Care Team Providers Care Clinical Application Manager Name Role Phone JENNIFER CANCINO Unavailable PROBLEMS Type Condition ICD9-CM Code [id number] Code Onset Dates Condition Status SNOMED Code Problem Mild persistent asthma without complication J45.30 Active 789665128 Problem Edema, unspecified type R60.9 Active 380442913 Problem Gastroesophageal reflux disease with esophagitis K21.0 Active 501286121 Problem Essential hypertension I10 Active 37274860 Problem Moderate persistent asthma with exacerbation J45.41 Active 674840135 Problem Other chronic pain G89.29 Active 08742294 Problem Esophageal abnormality K22.9 Active 30188615 Problem Hammer toe of right foot M20.41 Active 250629903 Problem Abnormal EKG R94.31 Active 775032044 Problem Right upper quadrant abdominal pain R10.11 Active 770499238 ALLERGIES Substance Reaction Event Type Date Status Naprosyn itching Drug Allergy Sep, Active Micardis Unknown Drug Allergy Sep, Active Hydrocodone Bitartrate itching Drug Allergy Sep, Active Celebrex swelling Drug Allergy Sep, Active Doxycycline scalp rash Drug Allergy Sep, Active ENCOUNTERS Encounter Location Date Diagnosis [place] [id number] [place] [address] 05174- 0689 Dec, BMI 40.0-44.9, adult Z68.41 ; Other chronic pain G89.29 and Pain in left hip M25.[address] [place] [address] 00047- 7422 Nov, Abscess L02.91 [place] [address] [place] [id number] [address] 1940 Nov, Moderate persistent asthma with exacerbation J45.41 [address] [place] [address] 28147- 0847 Nov, Low back pain M54.5 and Other chronic pain G89.29 [place] [address] [place] [id number] [place] [address] 93454- 6576 October, Abscess L02.91 [place] [address] [place] [id number] [place] [address] 01676- 3951 October, Cutaneous abscess of back excluding buttocks L02.212 and BMI 40.0-44.9, adult Z68.41 [place] [address] [place] [id number] [place] [address] 69158- 4731 October, [place] [address] [place] [id number] [place] [address] 32877- 3100 October, [place] [address] [place] [id number] [place] [address] 42398- 5498 Sep, [place] [address] [place] [id number] [place] [address] 01797- 9912 Sep, Abscess L02.91 [place] [address] [place] [id number] [place] [address] 56923- 5290 Sep, Right upper quadrant abdominal pain R10.11 ; Mild persistent asthma without complication J45.30 and BMI 40.0-44.9, adult Z68.41 [place] [address] [place] [id number] [place] [address] 82550- 3339 Aug, Abscess L02.91 and BMI 40.0-44.9, adult Z68.41 [place] [address] [place] [id number] [place] [address] 99492- 8280 Aug, Edema, unspecified type R60.9 [place] [address] [place] [id number] [place] [address] 94571- 3885 Aug, Right upper quadrant abdominal pain R10.11 ; Abnormal EKG R94.31 ; Esophageal abnormality K22.9 and BMI 40.0-44.9, adult Z68.41 [place] [address] [place] [id number] [place] [address] 69705- 0167 Aug, Hammer toe of right foot M20.41 and Onychomycosis B35.1 [facility] [address] [place] [address] [id number] [place] [address] 29933 -2216 Aug, Myalgia M79.1 [place] [address] 04407- 7693 Aug, [place] [address] 52228- 9088 Aug, Annual physical exam Z00.00 ; BMI 40.0-44.9, adult Z68.41 ; Mild persistent asthma without complication J45.30 ; Gastroesophageal reflux disease with esophagitis K21.0 ; Acute right-sided thoracic back pain M54.6 ; Trouble breathing R06.89 and Neck pain M54.2 [place] [address] 89063- 0599 Jul, Mild persistent asthma without complication J45.30 [place] [address] [place] [id number] [place] [address] 80713- 9088 Jul, Edema, unspecified type R60.9 [place] [address] [place] [id number] [place] [address] 77310- 0253 Jun, Edema, unspecified type R60.9 [place] [address] [place] [id number] [place] [address] 05842- 1633 Jun, Moderate persistent asthma with exacerbation J45.41 [place] [address] 68400- 2613 May, Edema, unspecified type R60.9 [place] [address] 15216- 4342 May, Moderate persistent asthma with exacerbation J45.41 and Hammer toe of right foot M20.41 [place] [address] 77188- 4708 May, Moderate persistent asthma without complication J45.40 ; Dysfunction of left eustachian tube H69.82 and BMI 45.0-49.9, adult Z68.42 [place] [address] [place] [id number] [place] [address] 83858- 8446 Apr, Edema, unspecified type R60.9 [place] [address] 63114- 2075 Mar, Edema, unspecified type R60.9 [place] [address] [place] [id number] [place] [address] 17913- 6756 Feb, Edema, unspecified type R60.9 [place] [address] [place] [id number] [place] [address] 59001- 3427 Jan, Edema, unspecified type R60.9 [place] [address] 03905- 9639 Jan, Mild persistent asthma without complication J45.30 [place] [address] [place] [id number] [place] [address] 73356- 3992 Dec, Edema, unspecified type R60.9 [place] [address] [place] [id number] [place] [address] 71656- 1878 Nov, Edema, unspecified type R60.9 and Essential hypertension I10 [place] [address] [place] [id number] [place] [address] 60820- 0221 October, Pain in left knee M25.562 [place] [address] [place] [id number] [place] [address] 97369- 3216 October, Pain in left knee M25.562 [place] [address] 59551- 7617 October, [place] [address] [place] [id number] [place] [address] 60224- 1535 Sep, [place] [address] [place] [address]- 9588 17 Sep, 2016 Mild persistent asthma without complication J45.30 [facility] [address] [place] [address] [id number] [place] [address] 56112- 8455 Sep, Pain in left knee M25.562 [facility] [address] [place] [id number] [place] [address] 00261- 3870 23 Aug, 2016 Acute nasopharyngitis J00 and Seasonal allergic rhinitis due to pollen J30.1 [facility] [address] 07146- 7669 16 Aug, 2016 [facility] [address] 25531- 5579 Aug, Arthralgia, unspecified joint M25.50 and Pain in left knee M25.562 [facility] [address] 53828- 8202 Aug, Mild persistent asthma without complication J45.30 [facility] [address] [place] [id number] [place] [address] 07636- 4974 Jul, Mild persistent asthma without complication J45.30 [facility] [address] [place] [id number] [place] [address] 35230- 1108 13 Jul, 2016 Pain in left knee M25.562 [facility] [address] [place] [id number] [place] [address] 63094- 8078 Jun, [facility] [address] [place] [address] [id number] [place] [address] 32522 -1223 Jun, [facility] [address] [place] [id number] [place] [address] 53997- 7363 Jun, Mild persistent asthma without complication J45.30 [facility] [address] [place] [id number] [place] [address] 91944- 3086 May, [facility] [address] [place] [id number] [place] [address] 22359- 1811 Apr, Restrictive lung disease J98.4 [facility] [address] [address]- 7773 Apr, [facility] [address] [place] [id number] [place] [address] 69407- 1509 Apr, Mild persistent asthma without complication J45.30 [facility] IN [facility] [address] [place] [id number] [place] [address] 98647 -6776 Mar, Sore throat J02.9 and Post-nasal drainage R09.82 [place] [address] [place] [id number] [place] [address] 43234- 9444 Mar, [place] [address] [place] [id number] [place] [address] 18305- 5771 Feb, [place] [address] [place] [id number] [place] [address] 75835- 2278 Feb, Mild persistent asthma without complication J45.30 [place] [address] [place] [address] 40581- 1172 Feb, Arthralgia, unspecified joint M25.50 [place] [address] [place] [id number] [place] [address] 11238- 3797 Feb, Edema, unspecified type R60.9 ; Arthralgia, unspecified joint M25.50 ; Mild persistent asthma without complication J45.30 ; Essential hypertension I10 ; Gastroesophageal reflux disease without esophagitis K21.9 and Major depressive disorder with single episode, remission status unspecified F32.9 [facility] [address] [place] [address] 49611- 6904 Jan, Edema, unspecified type R60.9 ; Essential hypertension I10 ; Mild persistent asthma without complication J45.30 ; Gastroesophageal reflux disease with esophagitis K21.0 ; Arthralgia, unspecified joint M25.50 and Major depressive disorder with single episode, remission status unspecified F32.9 [place] [id number] [place] [address] 20255- 7237 Jan, [place] [address] [facility] [id number] [address]- 5734 Dec, [facility] [address] [facility] [id number] [place] [address]- 7647 Dec, [facility] [address] [facility] [id number] [place] [address]- 5694 Dec, [facility] [address] [place] [address], [place] [address]- 6992 Nov, Bilateral edema of lower extremity R60.0 [facility] [address] [facility] [id number] [place] [address]- 6105 Nov, Bilateral edema of lower extremity R60.0 [facility] [address] [facility] [id number] [place] [address] -0092 Nov, [facility] [address] [address]- 4157 Nov, [facility] [address] [address]- 9460 October, [facility] [address] [place] [address]- 8543 Sep, [facility] [address] [address]- 2860 Aug, Acute sinusitis J01.90 [facility] [address] [address]- 8969 Aug, [facility] [address] [place] [id number] [address]- 1939 Aug, [facility] [address] [address]- 2508 Jul, [facility] [address] [address]- 1608 Jul, Pharyngitis J02.9 [facility] [address] [address]- 7270 Jul, [facility] [id number] [place] [address] 35900- 9583 Jun, Pain in left knee M25.562 [facility] [address] [place] [id number] [place] [address] 96363- 3556 Jun, [facility] [address] [place] [id number] [place] [address] 27193 -2214 May, Upper respiratory symptom R09.89 [facility] [address] [place] [id number] [place] [address] 40432- 8671 May, [facility] [address] [place] [id number] [place] [address] 03017- 6032 Apr, Costochondritis M94.0 and Knee pain, left M25.562 [facility] [address] [place] [id number] [place] [address] 90554- 5617 Apr, [facility] [address] [place] [id number] [place] [address] 77634- 5581 Mar, Eustachian tube dysfunction, left H69.82 [facility] [address] [place] [id number] [place] [address] 96562- 4274 Mar, [facility] [id number] [place] [address] 82553- 9703 Mar, [facility] [address] [place] [id number] [place] [address] 09861- 5029 Mar, [facility] [address] [place] [id number] [place] [address] 18792- 2383 Feb, [facility] [address] [place] [id number] [place] [address] 19553- 4766 Feb, [facility] [id number] [place] [address] 25371- 7879 Feb, [facility] [address] [place] [id number] [place] [address] 74769- 6184 Jan, Asthma 493.90 [facility] [address] [address]- 3381 Dec, [facility] [address] [address]- 2026 Dec, [facility] [address] [address]- 9984 Dec, [facility] [address] [address]- 9495 Dec, [facility] [address] [address]- 0460 Dec, Asthma, unspecified, unspecified status 493.90 [facility] [address] [address]- 9496 Nov, [facility] [address] [address]- 9285 Nov, Asthma, unspecified, unspecified status 493.90 [facility] [address] [address]- 9137 October, Asthma, unspecified, unspecified status 493.90 [facility] [address] 1876 October, [facility] [address] [place] [id number] 1100 October, Contact dermatitis 692.9 and Candidiasis of skin 112.3 [facility] [address] [address]- 3952 Sep, [facility] [address] [address]- 3307 Sep, [facility] [address] [place] [id number] [address]- 4866 Aug, [facility] [address] [address]- 0994 Aug, [facility] [place] [facility] [address] [id number] [place] [address]- 0561 Aug, [facility] [place] [facility] [address] [id number] [place] [address]- 6987 Aug, [facility] [place] [facility] [address] [id number] [place] 3536 Jul, [facility] [place] [facility] [address] [id number] [place] [address]- 0206 Jul, [facility] [place] [facility] [address] [id number] [place] [address]- 7867 Jun, [facility] [place] [facility] [address] [id number] [place] [address]- 2592 Jun, [facility] [place] [facility] [address] [id number] [place] [address]- 4217 May, [facility] [place] [facility] [address] [id number] [place] [address]- 7559 May, [facility] [place] [facility] [address] [id number] [place] [address]- 4867 May, [facility] [place] [facility] [address] [id number] [place] [address]- 8099 May, [facility] [place] [facility] [address] [id number] [place] [address]- 1368 May, [facility] [place] [facility] [address] [id number] [place] [address]- 2624 May, [facility] [place] [facility] [address] [id number] [place] 0166 Apr, [facility] [place] [facility] [address] [id number] [place] [address]- 9149 Apr, [facility] [place] [facility] [address] [id number] [place] [address]- 4092 15 Feb, 2014 [facility] [place] [facility] [address] [id number] [place] [address]- 7867 15 Feb, 2013 [facility] [place] [facility] [address] [id number] [place] [address]- 7716 10 Feb, 2013 [facility] [place] [facility] [address] [id number] [place] [address]- 4216 10 Feb, 2014 [facility] [place] [facility] [address] [id number] [place] [address]- 1736 05 Feb, 2013 [facility] [place] [facility] [address] [id number] [place] [address]- 1675 05 Feb, 2014 [facility] [place] [facility] [address] [id number] [place] [address]- 8131 Jan, [facility] [place] [facility] [address] [id number] [place] [address]- 6335 Jan, [facility] [place] [facility] [address] [id number] [place] [address]- 7175 Jan, [facility] [place] [facility] [address] [id number] [place] [address]- 5634 Jan, [facility] [place] [facility] [address] [id number] [place] [address]- 3397 Jan, [facility] [place] [facility] [address] [id number] [place] [address]- 7247 Jan, [facility] [place] [facility] [address] [id number] [place] [address]- 4641 Dec, [facility] [place] [facility] [address] [id number] [place] [address]- 8867 Dec, [facility] [place] [facility] [address] [id number] [place] [address]- 4854 Nov, [facility] [place] [facility] [address] [id number] [place] [address]- 1698 Nov, [facility] [place] [facility] [address] [id number] [place] [address]- 8994 Nov, [facility] [place] [facility] [address] [id number] [place] [address]- 7301 Nov, [facility] [place] [facility] [address] [id number] [place] [address]- 2254 Nov, [facility] [place] [facility] [address] [id number] [place] [address]- 6760 Nov, [facility] [place] [facility] [address] [id number] [place] [address]- 3400 Nov, [facility] [place] [facility] [address] [id number] [place] [address]- 9988 Nov, [facility] [place] [facility] [address] [id number] [place] [address]- 4929 Nov, [facility] [place] [facility] [address] [id number] [place] [address]- 3991 Nov, [facility] [place] [facility] [address] [id number] [place] [address]- 2307 Nov, [facility] [place] [facility] [address] [id number] [place] [address]- 6681 Nov, [facility] [place] [facility] [address] [id number] [place] [address]- 7006 Nov, [facility] [place] [facility] [address] [id number] [place] [address]- 4522 October, [facility] [place] [facility] [address] [id number] [place] [address]- 4713 October, [facility] [place] [facility] [address] [id number] [place] [address]- 5030 October, [facility] [place] [facility] [address] [id number] [place] [address]- 6210 October, [facility] [place] [facility] [address] [id number] [place] [address]- 0503 Sep, [facility] [place] [facility] [address] [id number] [place] [address]- 8881 Sep, [facility] [place] [facility] [address] [id number] [place] [address]- 3613 Sep, [facility] [place] [facility] [address] [id number] [place] [address]- 2809 Sep, [facility] [place] [facility] [address] [id number] [place] [address]- 4059 Aug, [facility] [place] [facility] [address] [id number] [place] [address]- 4244 Aug, [facility] [place] [facility] [address] [id number] [place] [address]- 2457 Jul, [facility] [place] [facility] [address] [id number] [place] [address]- 5666 Jul, [facility] [place] [facility] [address] [facility] [id number] [place] [address]- 2539 Jun, [facility] [place] [facility] [address] [id number] [place] [address]- 9233 Jun, [facility] [place] [facility] [address] [facility] [id number] [place] [address]- 8594 Mar, [facility] [place] [facility] [address] [id number] [place] [address] Mar, [facility] [place] [facility] [address] [id number] [place] [address] Mar, [facility] [place] [facility] [address] [id number] [place] [address] Mar, [facility] [place] [facility] [address] [id number] [place] [address] Mar, [facility] [place] [facility] [address] [id number] [place] [address] Feb, [facility] [place] [facility] [address] [facility] [id number] [place] [address] Feb, [facility] [place] [facility] [address] [id number] [place] [address] Dec, [facility] [address] [id number] [place] [address] Nov, [facility] [place] [facility] [address] [id number] [place] [address] October, [facility] [address] [id number] [place] [address] Sep, [facility] [place] [facility] [address] [id number] [place] [address] Sep, [facility] [address] [id number] [place] [address] Aug, [facility] [address] [id number] [place] [address] Aug, [facility] [address] [id number] [place] [address] Aug, [facility] [address] [id number] [place] [address] Aug, [facility] [address] [id number] [place] [address] Jun, [facility] [address] [id number] [place] [address] Jun, [facility] [address] [id number] [place] [address] Jun, [facility] [address] [id number] [place] [address] May, [facility] [place] [facility] [address] [id number] [place] [address] May, [facility] [place] [facility] [address] [id number] [place] [address] Apr, [facility] [address] [id number] [place] [address] Apr, [facility] [place] [facility] [address] [id number] [place] [address] Apr, [facility] [place] [facility] [address] [id number] [place] [address] Apr, [facility] [place] [facility] [address] [id number] [place] [address] Apr, [facility] [place] [facility] [address] [id number] [place] [address] Apr, [facility] [place] [facility] [address] [id number] [place] [address] Apr, [facility] [place] [facility] [address] [id number] [place] [address] Mar, [facility] [place] [facility] [address] [id number] [place] [address] Mar, [facility] [place] [facility] [address] [id number] [place] [address] 18 Feb, 2012 [facility] [place] [facility] [address] [id number] [place] [address] 17 Feb, 2012 [facility] [place] [facility] [address] [id number] [place] [address] 13 Feb, 2012 [facility] [place] [facility] [address] [id number] [place] [address] 15 Jan, 2012 [facility] [place] [facility] [address] [id number] [place] [address] 14 Jan, 2012 [facility] [place] [facility] [address] [id number] [place] [address] Jan, [facility] [place] [facility] [address] [id number] [place] [address] Jan, [facility] [place] [facility] [address] [id number] [place] [address] Dec, [facility] [place] [facility] [address] [id number] [place] [address] 20 Dec, 2011 [facility] [place] [facility] [address] [id number] [place] [address] 18 Dec, 2011 [facility] [place] [facility] [address] [id number] [place] [address] 17 Dec, 2011 [facility] [place] [facility] [address] [id number] [place] [address] 10 Dec, 2011 [facility] [place] [facility] [address] [id number] [place] [address] 14 Nov, 2011 [facility] [place] [facility] [address] [id number] [place] [address] 14 Nov, 2011 [facility] [place] [facility] [address] [id number] [place] [address] Nov, [facility] [address] [id number] [place] [address] Nov, [facility] [place] [facility] [address] [id number] [place] [address] October, [facility] [place] [facility] [address] [id number] [place] [address] October, [facility] [place] [facility] [address] [id number] [place] [address] October, [facility] [place] [facility] [address] [id number] [place] [address] October, [facility] [place] [facility] [address] [id number] [place] [address] October, [facility] [place] [facility] [address] [id number] [place] [address] Sep, [facility] [place] [facility] [address] [id number] [place] [address] Sep, [facility] [place] [facility] [address] [id number] [place] [address] Sep, [facility] [place] [facility] [address] [id number] [place] [address] 11 Sep, 2011 [facility] [place] [facility] [address] [id number] [place] [address] 03 Sep, 2011 [facility] [place] [facility] [address] [id number] [place] [address] 29 Aug, 2011 [facility] [place] [facility] [address] [id number] [place] [address] 28 Aug, 2011 [facility] [place] [facility] [address] [id number] [place] [address] 27 Aug, 2011 [facility] [place] [facility] [address] [id number] [place] [address] 26 Aug, 2011 [facility] [place] [facility] [address] [id number] [place] [address] 23 Aug, 2011 [facility] [place] [facility] [address] [id number] [place] [address] 20 Aug, 2011 [facility] [place] [facility] [address] [id number] [place] [address] 19 Aug, 2011 [facility] [place] [facility] [address] [id number] [place] [address] 17 Aug, 2011 [facility] [place] [facility] [address] [id number] [place] [address] 18 Jun, 2011 [facility] [place] [facility] [address] [id number] [place] [address] 12 Jun, 2011 [facility] [place] [facility] [address] [id number] [place] [address] 11 Jun, 2011 [facility] [place] [facility] [address] [id number] [place] [address] 10 Jun, 2011 [facility] [place] [facility] [address] [id number] [place] [address] 06 Jun, 2011 [facility] [place] [facility] [address] [id number] [place] [address] May, [facility] [id number] [address] Apr, [facility] [id number] [place] [address] October, [facility] [id number] [place] [address] May, [facility] [id number] [address] May, [facility] [id number] [place] [address] Apr, [facility] [id number] [place] [address] Jan, [facility] [id number] [address] Dec, [facility] [id number] [address] Sep, [facility] [id number] [place] [address] Sep, [facility] [id number] [place] [address] Jul, [facility] [id number] [place] [address] May, [facility] [id number] [address] Jan, IMMUNIZATIONS No Known Immunizations SOCIAL HISTORY Never Assessed REASON FOR VISIT f/u difficultly swallowing, low grade fever, right side middle back pain. Was seen by Eliu and labs, xray and CT done at that time--ABoggsN PLAN OF CARE VITAL SIGNS Height 64 in 2017-09-25 Weight 250.6 lbs 2017-09-25 Temperature 100.0 degrees Fahrenheit 2017-09-25 Heart Rate 78 bpm 2017-09-25 Respiratory Rate 20 2017-09-25 BMI 43.01 kg/m2 2017-09-25 Blood pressure systolic 128 mmHg 2017-09-25 Blood pressure diastolic 80 mmHg 2017-09-25 MEDICATIONS Medication Instructions Dosage Frequency Start Date End Date Duration Status Spiriva Respimat 1.25 MCG/ACT Inhalation Once a day 2 puffs 24h Aug, 90 days Active Wellbutrin XL 150 MG Orally Once a day 1 tablet in the morning 24h Active Ibuprofen 800 MG Orally Three times a day 1 tablet 8h Active Proventil HFA 108 (90 Base) MCG/ACT Inhalation every 4 hrs 2 puffs as needed 4h Feb, 30 days Active Cyclobenzaprine HCl 5 MG TAKE ONE TABLET BY MOUTH TWICE DAILY 30 Active Losartan Potassium 25 MG 1 tablet 24h Active Albuterol Sulfate (2.5 MG/3ML) 0.083% USE ONE VIAL (3 ML) PER NEBULIZER FOUR TIMES DAILY NEEDED FOR WHEEZING OR COUGH 6 Active Advair Diskus 250-50 MCG/DOSE Inhalation Twice a day 1 puff 12h Nov, 60 days Active Hydrochlorothiazide 50 mg TAKE ONE TABLET BY MOUTH ONCE DAILY 30 Active Bactrim DS 800-160 MG Orally Twice a day 1 tablet 12h 20 Sep, 2017 October, 14 days Active Omeprazole 20 MG TAKE ONE CAPSULE BY MOUTH ONCE DAILY 30 Active Lamisil 250 MG Orally Once a day 1 tablet 24h Aug, Sep, 30 days Not-Taking Tramadol HCl 50 MG Orally 1 tablet [...]
--- OUTSIDE RECORDS SUMMARY | 2018-05-04 07:30 | XMS REPORT ---
Author Author JENNIFER CANCINO Organization [facility] Address [address] [place] [address] Care Team Providers Care Reinsurance Clerk Name Role Phone JENNIFER CANCINO Unavailable PROBLEMS Type Condition ICD9-CM Code UCE04-LL Code Onset Dates Condition Status SNOMED Code Problem Mild persistent asthma without complication J45.30 Active 345305520 Problem Edema, unspecified type R60.9 Active 239428505 Problem Gastroesophageal reflux disease with esophagitis K21.0 Active 614876127 Problem Essential hypertension I10 Active 27472420 Problem Moderate persistent asthma with exacerbation J45.41 Active 338001572 Problem Other chronic pain G89.29 Active 68795254 Problem Esophageal abnormality K22.9 Active 36855913 Problem Hammer toe of right foot M20.41 Active 038767268 Problem Abnormal EKG R94.31 Active 318594260 Problem Right upper quadrant abdominal pain R10.11 Active 378709698 ALLERGIES No Information ENCOUNTERS Encounter Location Date Diagnosis [place] [id number] [place] [address] 96285- 4823 Dec, BMI 40.0-44.9, adult Z68.41 ; Other chronic pain G89.29 and Pain in left hip M25.552 [place] [address] [place] [address] 37870- 6041 Nov, Abscess L02.91 [place] [id number] [place] [address] 39958- 9078 Nov, Moderate persistent asthma with exacerbation J45.41 [place] [id number] [place] [address] 30095- 9273 Nov, Low back pain M54.5 and Other chronic pain G89.29 [place] [id number] [place] [address] 38330- 2301 October, Abscess L02.91 [place] [id number] [place] [address] 63401- 7429 October, Cutaneous abscess of back excluding buttocks L02.212 and BMI 40.0-44.9, adult Z68.41 [place] [id number] [place] [address] 84013- 2031 October, [place] [address] 24825- 7414 October, [place] [id number] [place] [address] 51707- 4069 Sep, [place] [address] 96958- 4519 Sep, Abscess L02.91 [place] [address] 45251- 0765 Sep, Right upper quadrant abdominal pain R10.11 ; Mild persistent asthma without complication J45.30 and BMI 40.0-44.9, adult Z68.41 [place] [address] 13708- 1595 Aug, Abscess L02.91 and BMI 40.0-44.9, adult Z68.41 [place] [id number] [place] [address] 46232- 4307 Aug, Edema, unspecified type R60.9 [place] [id number] [place] [address] 22817- 1808 Aug, Right upper quadrant abdominal pain R10.11 ; Abnormal EKG R94.31 ; Esophageal abnormality K22.9 and BMI 40.0-44.9, adult Z68.41 [place] [id number] [place] [address] 11119- 1358 Aug, Hammer toe of right foot M20.41 and Onychomycosis B35.1 [facility] [address] [address] -[address] Aug, Myalgia M79.1 [place] [address] 46377- 4302 Aug, [place] [address] 81837- 0574 Aug, Annual physical exam Z00.00 ; BMI 40.0-44.9, adult Z68.41 ; Mild persistent asthma without complication J45.30 ; Gastroesophageal reflux disease with esophagitis K21.0 ; Acute right-sided thoracic back pain M54.6 ; Trouble breathing R06.89 and Neck pain M54.2 [place] [address] 90012- 8502 28 Jul, 2017 Mild persistent asthma without complication J45.[address] 37155- 6772 Jul, Edema, unspecified type R60.[address] 55177- 0725 Jun, Edema, unspecified type R60.[address] 26074- 8437 Jun, Moderate persistent asthma with exacerbation J45.[address] 12496- 6529 May, Edema, unspecified type R60.9 [place] [address] 55579- 3252 May, Moderate persistent asthma with exacerbation J45.41 and Hammer toe of right foot M20.[address] 48943- 6021 04 May, 2017 Moderate persistent asthma without complication J45.40 ; Dysfunction of left eustachian tube H69.82 and BMI 45.0-49.9, adult Z68.[address] [place] [address]- 6924 Apr, Edema, unspecified type R60.9 [facility] [id number] [place] [address] 02304- 7458 Mar, Edema, unspecified type R60.9 [facility] [id number] [place] [address] 42921- 5758 Feb, Edema, unspecified type R60.9 [facility] [id number] [place] [address] 76519- 0454 Jan, Edema, unspecified type R60.9 [place] [address] 41712- 1663 Jan, Mild persistent asthma without complication J45.30 [place] [id number] [place] [address] 52152- 0630 Dec, Edema, unspecified type R60.9 [place] [id number] [place] [address] 77324- 6764 Nov, Edema, unspecified type R60.9 and Essential hypertension I10 [place] [id number] [place] [address] 16783- 0276 October, Pain in left knee M25.562 [facility] [id number] [place] [address] 75717- 5738 October, Pain in left knee M25.562 [facility] [id number] [place] [address] 60608- 8056 October, [facility] [id number] [place] [address] 74494- 8602 Sep, [facility] [id number] [place] [address] 25550- 3410 Sep, Mild persistent asthma without complication J45.30 [facility] [id number] [place] [address] 46842- 6200 Sep, Pain in left knee M25.562 [facility] [address] [place] [address] 57740- 6138 23 Aug, 2016 Acute nasopharyngitis J00 and Seasonal allergic rhinitis due to pollen J30.1 [facility] [id number] [place] [address] 98144- 5687 16 Aug, 2016 [facility] [id number] [place] [address] 27603- 5111 13 Aug, 2016 Arthralgia, unspecified joint M25.50 and Pain in left knee M25.562 [facility] [id number] [place] [address] 85026- 9580 08 Aug, 2016 Mild persistent asthma without complication J45.30 [facility] [id number] [place] [address] 72372- 3950 28 Jul, 2016 Mild persistent asthma without complication J45.30 [facility] [id number] [place] [address] 57217- 7824 Jul, Pain in left knee M25.562 [facility] [id number] [place] [address] 03618- 5028 Jun, [facility] [address] [place] [address] 69482 -4504 Jun, [facility] [id number] [place] [address] 88313- 4385 Jun, Mild persistent asthma without complication J45.30 [facility] [id number] [place] [address] 83769- 2749 May, [facility] [id number] [place] [address] 16679- 8520 Apr, Restrictive lung disease J98.4 [facility] [id number] [place] [address] 88375- 3609 Apr, [facility] [id number] [place] [address] 40451- 0608 Apr, Mild persistent asthma without complication J45.30 [facility] [address] [address] Mar, Sore throat J02.9 and Post-nasal drainage R09.82 [facility] [address] [address]- 1504 Mar, [facility] [id number] [place] [address] 94489- 5719 Feb, [facility] [id number] [place] [address] 99095- 6844 Feb, Mild persistent asthma without complication J45.30 [facility] [id number] [place] [address] 37280- 3309 Feb, Arthralgia, unspecified joint M25.50 [facility] [id number] [place] [address] 04140- 9060 Feb, Edema, unspecified type R60.9 ; Arthralgia, unspecified joint M25.50 ; Mild persistent asthma without complication J45.30 ; Essential hypertension I10 ; Gastroesophageal reflux disease without esophagitis K21.9 and Major depressive disorder with single episode, remission status unspecified F32.9 [facility] [address] [address]- 5224 Jan, Edema, unspecified type R60.9 ; Essential hypertension I10 ; Mild persistent asthma without complication J45.30 ; Gastroesophageal reflux disease with esophagitis K21.0 ; Arthralgia, unspecified joint M25.50 and Major depressive disorder with single episode, remission status unspecified F32.9 [facility] [address] [place] [address] 43460- 9827 Jan, [facility] [id number] [place] [address] 63838- 9901 Dec, [facility] [address] [place] [address] 14575- 4835 Dec, [facility] [address] [address]- 1735 Dec, [facility] [address] [address]- 8516 Nov, Bilateral edema of lower extremity R60.0 [facility] [address] [place] [address]- 2566 Nov, Bilateral edema of lower extremity R60.0 [facility] [address] [place] [address] Nov, [facility] [address] [place] [address] 95702- 3522 Nov, [facility] [address] [address]- 7776 October, [facility] [address] [place] [address] 82611- 5307 Sep, [facility] [address] [address] 2541 Aug, Acute sinusitis J01.90 [facility] [address] [address]- 5436 Aug, [facility] [address] [address]- 6202 Aug, [facility] [address] [address] 2546 Jul, [facility] [address] [address] 2546 Jul, Pharyngitis J02.9 [facility] [address] [address]- 2546 05 Jul, 2015 [facility] [address] [address]- 2546 Jun, Pain in left knee M25.562 [facility] [id number] [place] [address] 70091- 8012 Jun, [facility] [id number] [place] [address] 20804 -0762 May, Upper respiratory symptom R09.89 [facility] [id number] [place] [address] 37388- 6116 May, [facility] [id number] [place] [address] 24145- 0742 Apr, Costochondritis M94.0 and Knee pain, left M25.562 [facility] [id number] [place] [address] 51628- 7086 Apr, [facility] [id number] [place] [address] 79839- 4096 Mar, Eustachian tube dysfunction, left H69.82 [facility] [id number] [place] [address] 55505- 7770 Mar, [facility] [id number] [place] [address] 87194- 7862 Mar, [facility] [id number] [place] [address] 67577- 2119 Mar, [facility] [id number] [place] [address] 71888- 4823 Feb, [facility] [id number] [place] [address] 16041- 1753 Feb, [facility] [id number] [place] [address] 16686- 5088 Feb, [facility] [id number] [place] [address] 52395- 3784 Jan, Asthma 493.90 [facility] [id number] [place] [address] 43393- 5072 Dec, [facility] [id number] [place] [address] 75327- 8596 Dec, [facility] [address] [address]- 2065 Dec, [facility] [address] [address]- 2486 Dec, [facility] [address] [address]- 0596 Dec, Asthma, unspecified, unspecified status 493.90 [facility] [address] [address]- 7078 Nov, [facility] [address] [address]- 8658 Nov, Asthma, unspecified, unspecified status 493.90 [facility] [address] [address]- 7066 October, Asthma, unspecified, unspecified status 493.90 [facility] [address] [address]- 3006 October, [facility] [address] 8866 October, Contact dermatitis 692.9 and Candidiasis of skin 112.3 [facility] [address] [address]- 4262 Sep, [facility] [address] [address]- 7468 Sep, [facility] [address] [address]- 0740 Aug, [facility] [address] [address]- 9246 Aug, [facility] [id number] [address]- 7706 Aug, [facility] [address] [address]- 7318 Aug, [facility] [place] [facility] [address] [id number] [place] [address]- 1045 Jul, [facility] [place] [facility] [address] [id number] [place] [address]- 1076 Jul, [facility] [place] [facility] [address] [facility] [id number] [place] [address]- 9322 Jun, [facility] [place] [facility] [address] [id number] [place] [address]- 8800 Jun, [facility] [place] [facility] [address] [id number] [place] [address]- 8423 May, [facility] [place] [facility] [address] [id number] [place] [address]- 8066 May, [facility] [place] [facility] [address] [id number] [place] [address]- 1238 May, [facility] [place] [facility] [address] [id number] [place] [address]- 0244 May, [facility] [place] [facility] [address] [id number] [place] [address]- 9929 May, [facility] [place] [facility] [address] [id number] [place] [address]- 4186 May, [facility] [place] [facility] [address] [id number] [place] [address]- 2175 Apr, [facility] [place] [facility] [address] [id number] [place] [address]- 9315 Apr, [facility] [place] [facility] [address] [id number] [place] [address]- 9481 Feb, [facility] [place] [facility] [address] [id number] [place] [address]- 2526 15 Feb, 2014 [facility] [place] [facility] [address] [id number] [place] [address]- 0000 Feb, [facility] [place] [facility] [address] [id number] [place] [address]- 2292 Feb, [facility] [place] [facility] [address] [id number] [place] [address]- 0314 Feb, [facility] [place] [facility] [address] [id number] [place] [address]- 0911 Feb, [facility] [place] [facility] [address] [id number] [place] [address]- 0537 Jan, [facility] [place] [facility] [address] [id number] [place] [address]- 9941 Jan, [facility] [place] [facility] [address] [id number] [place] [address]- 1797 Jan, [facility] [place] [facility] [address] [id number] [place] [address]- 7973 Jan, [facility] [place] [facility] [address] [id number] [place] [address]- 4104 Jan, [facility] [place] [facility] [address] [id number] [place] [address]- 8387 Jan, [facility] [place] [facility] [address] [id number] [place] [address]- 9463 Dec, [facility] [place] [facility] [address] [id number] [place] [address]- 3628 Dec, [facility] [place] [facility] [address] [id number] [place] [address]- 9010 Nov, [facility] [place] [facility] [address] [id number] [place] [address]- 0556 Nov, [facility] [place] [facility] [address] [id number] [place] [address]- 9401 Nov, [facility] [place] [facility] [address] [id number] [place] [address]- 5169 Nov, [facility] [place] [facility] [address] [id number] [place] [address]- 5112 Nov, [facility] [place] [facility] [address] [id number] [place] [address]- 2088 Nov, [facility] [place] [facility] [address] [id number] [place] [address]- 7187 Nov, [facility] [place] [facility] [address] [id number] [place] [address]- 7708 Nov, [facility] [place] [facility] [address] [id number] [place] [address]- 7529 Nov, [facility] [place] [facility] [address] [id number] [place] [address]- 8499 Nov, [facility] [place] [facility] [address] [id number] [place] [address]- 4091 Nov, [facility] [place] [facility] [address] [id number] [place] [address]- 6680 Nov, [facility] [place] [facility] [address] [id number] [place] [address]- 4949 Nov, [facility] [place] [facility] [address] [id number] [place] [address]- 3943 October, [facility] [place] [facility] [address] [id number] [place] [address]- 4685 October, [facility] [place] [facility] [address] [id number] [place] [address]- 3528 October, [facility] [place] [facility] [address] [id number] [place] [address]- 3418 October, [facility] [place] [facility] [address] [id number] [place] [address]- 8629 Sep, [facility] [place] [facility] [address] [id number] [place] [address]- 0070 Sep, [facility] [place] [facility] [address] [id number] [place] [address]- 3713 Sep, [facility] [place] [facility] [address] [id number], [place] [address]- 5025 Sep, [facility] [place] [facility] [address] [id number] [place] [address]- 0678 Aug, [facility] [place] [facility] [address] [id number] [address] Aug, [facility] [place] [facility] [address] [facility] [id number] [place] [address]- 8880 Jul, [facility] [place] [facility] [address] [id number] [place] [address]- 4074 Jul, [facility] [place] [facility] [address] [facility] [id number] [place] [address]- 4490 Jun, [facility] [place] [facility] [address] [id number] [place] [address]- 4662 Jun, [facility] [place] [facility] [address] [facility] [id number], [place] [address]- 4028 Mar, [facility] [place] [facility] [address] [id number] [place] [address]- 3730 Mar, [facility] [place] [facility] [address] [facility] [id number] [place] [address]- 4932 Mar, [facility] [place] [facility] [address] [facility] [id number] [place] [address]- 1838 Mar, [facility] [place] [facility] [address] [facility] [id number], [place] [address]- 5591 Mar, [facility] [place] [facility] [address] [id number], [place] [address]- 6723 Feb, [facility] [place] [facility] [address] [id number], [place] [address] Feb, [facility] [place] [facility] [address] [facility] [id number], [place] [address] Dec, [facility] [place] [facility] [address] [facility] [id number], [place] [address] Nov, [facility] [place] [facility] [address] [id number] [place] [address] October, [facility] [place] [facility] [address] [id number] [place] [address] Sep, [facility] [place] [facility] [address] [id number] [place] [address] Sep, [facility] [place] [facility] [address] [id number] [place] [address] Aug, [facility] [place] [facility] [address] [id number] [place] [address] Aug, [facility] [place] [facility] [address] [id number] [place] [address] Aug, [facility] [place] [facility] [address] [id number] [place] [address] Aug, [facility] [place] [facility] [address] [id number] [place] [address] Jun, [facility] [place] [facility] [address] [id number] [place] [address] Jun, [facility] [place] [facility] [address] [id number] [place] [address] Jun, [facility] [place] [facility] [address] [id number] [place] [address] May, [facility] [place] [facility] [address] [id number] [place] [address] May, [facility] [place] [facility] [address] [id number] [place] [address] Apr, [facility] [place] [facility] [address] [id number] [place] [address] Apr, [facility] [place] [facility] [address] [id number] [place] [address] Apr, [facility] [place] [facility] [address] [id number] [place] [address] Apr, [facility] [place] [facility] [address] [id number] [place] [address]60 Apr, [facility] [place] [facility] [address] [id number] [place] [address] Apr, [facility] [place] [facility] [address] [id number] [place] [address] Apr, [facility] [place] [facility] [address] [id number] [place] [address] Mar, [facility] [place] [facility] [address] [id number] [place] [address] Mar, [facility] [place] [facility] [address] [id number] [place] [address] 18 Feb, 2012 [facility] [place] [facility] [address] [id number] [place] [address] 17 Feb, 2012 [facility] [place] [facility] [address] [id number] [place] [address] 13 Feb, 2012 [facility] [place] [facility] [address] [id number] [place] [address] 15 Jan, 2012 [facility] [place] [facility] [address] [id number] [place] [address] Jan, [facility] [place] [facility] [address] [id number], [place] [address] Jan, [facility] [place] [facility] [address] [id number], [place] [address] Jan, [facility] [place] [facility] [address] [id number] [place] [address] Dec, [facility] [place] [facility] [address] [id number] [place] [address] Dec, [facility] [place] [facility] [address] [id number] [place] [address] Dec, [facility] [place] [facility] [address] [id number] [place] [address] 17 Dec, 2011 [facility] [place] [facility] [address] [id number] [place] [address] 10 Dec, 2011 [facility] [place] [facility] [address] [id number] [place] [address]- [address] 14 Nov, 2011 [facility] [place] [facility] [address] [id number] [place] [address]- [address] 14 Nov, 2011 [facility] [place] [facility] [address] [id number] [place] [address]68 Nov, [facility] [place] [facility] [address] [id number] [place] [address] Nov, [facility] [place] [facility] [address] [id number] [place] [address] October, [facility] [address] [id number] [place] [address] October, [facility] [place] [facility] [address] [id number] [place] [address] October, [facility] [place] [facility] [address] [id number] [place] [address] October, [facility] [place] [facility] [address] [id number] [place] [address] October, [facility] [place] [facility] [address] [id number] [place] [address] Sep, [facility] [place] [facility] [address] [id number] [place] [address]- [address] 20 Sep, 2011 [facility] [place] [facility] [address] [id number] [place] [address] Sep, [facility] [place] [facility] [address] [id number] [place] [address] Sep, [facility] [place] [facility] [address] [id number] [place] [address] Sep, [facility] [place] [facility] [address] [id number] [place] [address] 29 Aug, 2011 [facility] [address] [id number] [place] [address] 28 Aug, 2011 [facility] [place] [facility] [address] [id number] [place] [address] 27 Aug, 2011 [facility] [address] [id number] [place] [address] 26 Aug, 2011 [facility] [address] [id number] [place] [address] 23 Aug, 2011 [facility] [address] [id number] [place] [address] 20 Aug, 2011 [facility] [address] [id number] [place] [address] 19 Aug, 2011 [facility] [address] [id number] [place] [address] 17 Aug, 2011 [facility] [address] [id number] [place] [address] 18 Jun, 2011 [facility] [address] [id number] [place] [address] Jun, [facility] [address] [id number] [place] [address] 11 Jun, 2011 [facility] [address] [id number] [place] [address] Jun, [facility] [place] [facility] [address] [id number] [place] [address] 06 Jun, 2011 [facility] [place] [facility] [address] [id number] [place] [address] 20 May, 2011 [facility] [place] [facility] [address] [id number] [place] [address] 29 Apr, 2011 [facility] [address] [id number], [place] [address] October, [facility] [address] [id number] [address] May, [facility] [address] [facility] [id number], [place] [address] May, [facility] [id number], [place] [address] Apr, [facility] [address], [place] [address] Jan, [facility] [id number], [place] [address] Dec, [facility] [id number], [place] [address] Sep, [facility] [id number], [place] [address] Sep, [facility] [id number], [place] [address] Jul, [facility] [address] [id number], [place] [address] May, [facility] [address] [id number], [place] [address] Jan, IMMUNIZATIONS No Known Immunizations SOCIAL HISTORY Never Assessed REASON FOR VISIT Requests return call// PLAN OF CARE VITAL SIGNS MEDICATIONS No [...]
--- NOTE | 2018-05-04 07:31 | Diagnostic Imaging Report ---
PROCEDURE: CT head without contrast. TECHNIQUE: Multiple contiguous axial images were obtained through the brain without the use of intravenous contrast. INDICATION: Fall. Laceration to the top of head. COMPARISON: None. FINDINGS: No intracranial hemorrhage, mass effect, hydrocephalus or extra-axial fluid collections. No CT evidence for territorial infarction. Osseous structures are intact. The visualized paranasal sinuses and mastoids are clear. IMPRESSION: No acute intracranial CT findings. Dictated by: Dictated on workstation # [id number]
--- OUTSIDE RECORDS SUMMARY | 2018-05-04 07:31 | XMS REPORT ---
Author Author RADHA CARIAS [facility] Address [address] [place] [address] Care Team Providers Care Stna Name Role Phone RADHA CARIAS Unavailable PROBLEMS Type Condition ICD9-CM Code [id number] Code Onset Dates Condition Status SNOMED Code Problem Mild persistent asthma without complication J45.30 Active 046825137 Problem Edema, unspecified type R60.9 Active 839850385 Problem Gastroesophageal reflux disease with esophagitis K21.0 Active 425783805 Problem Essential hypertension I10 Active 70567436 Problem Moderate persistent asthma with exacerbation J45.41 Active 639506045 Problem Other chronic pain G89.29 Active 17145421 Problem Esophageal abnormality K22.9 Active 33014872 Problem Hammer toe of right foot M20.41 Active 999226457 Problem Abnormal EKG R94.31 Active 738496527 Problem Right upper quadrant abdominal pain R10.11 Active 706556376 ALLERGIES Substance Reaction Event Type Date Status Naprosyn itching Drug Allergy Sep, Active Micardis Unknown Drug Allergy Sep, Active Hydrocodone Bitartrate itching Drug Allergy Sep, Active Celebrex swelling Drug Allergy Sep, Active Doxycycline scalp rash Drug Allergy Sep, Active ENCOUNTERS Encounter Location Date Diagnosis [place] [id number] [place] [address] 83960- 4665 Dec, BMI 40.0-44.9, adult Z68.41 ; Other chronic pain G89.29 and Pain in left hip M25.552 [place] [id number] [place] [address] 05188- 4865 Nov, Abscess L02.91 [place] [address] [address] 0020 Nov, Moderate persistent asthma with exacerbation J45.41 [place] [address] [place] [id number] [place] [address] 61836- 9016 Nov, Low back pain M54.5 and Other chronic pain G89.29 [place] [address] [place] [id number] [place] [address] 08996- 9355 October, Abscess L02.91 [place] [address] [place] [id number] [place] [address] 56313- 3608 October, Cutaneous abscess of back excluding buttocks L02.212 and BMI 40.0-44.9, adult Z68.41 [place] [address] [place] [id number] [place] [address] 42606- 1432 October, [place] [address] [place] [id number] [place] [address] 25849- 6861 October, [place] [address] [place] [id number] [place] [address] 72308- 6500 Sep, [place] [address] [place] [id number] [place] [address] 54971- 9689 Sep, Abscess L02.91 [place] [address] [place] [id number] [place] [address] 54637- 4894 Sep, Right upper quadrant abdominal pain R10.11 ; Mild persistent asthma without complication J45.30 and BMI 40.0-44.9, adult Z68.41 [place] [address] [place] [id number] [place] [address] 94855- 1030 Aug, Abscess L02.91 and BMI 40.0-44.9, adult Z68.41 [place] [address] [place] [id number] [place] [address] 73665- 9703 Aug, Edema, unspecified type R60.9 [place] [address] [place] [id number] [place] [address] 83482- 3651 Aug, Right upper quadrant abdominal pain R10.11 ; Abnormal EKG R94.31 ; Esophageal abnormality K22.9 and BMI 40.0-44.9, adult Z68.41 [place] [address] [place] [id number] [place] [address] 58132- 5388 23 Aug, 2017 Hammer toe of right foot M20.41 and Onychomycosis B35.1 [facility] [address] [place] [id number] [place] [address] 00659 -2805 19 Aug, 2017 Myalgia M79.1 [place] [address] 17421- 8158 19 Aug, 2017 [place] [address] [place] [id number] [place] [address] 54633- 7071 Aug, Annual physical exam Z00.00 ; BMI 40.0-44.9, adult Z68.41 ; Mild persistent asthma without complication J45.30 ; Gastroesophageal reflux disease with esophagitis K21.0 ; Acute right-sided thoracic back pain M54.6 ; Trouble breathing R06.89 and Neck pain M54.2 [place] [address] 16515- 6934 Jul, Mild persistent asthma without complication J45.30 [place] [address] 76567- 5875 Jul, Edema, unspecified type R60.9 [place] [address] 04550- 2087 Jun, Edema, unspecified type R60.9 [place] [address] [place] [id number] [place] [address] 49849- 4482 Jun, Moderate persistent asthma with exacerbation J45.41 [place] [address] [place] [id number] [place] [address] 20498- 3149 May, Edema, unspecified type R60.9 [place] [address] 39571- 7237 May, Moderate persistent asthma with exacerbation J45.41 and Hammer toe of right foot M20.41 [place] [address] [place] [address]- 2893 May, Moderate persistent asthma without complication J45.40 ; Dysfunction of left eustachian tube H69.82 and BMI 45.0-49.9, adult Z68.42 [facility] [address] [place] [id number] [place] [address] 72532- 6536 Apr, Edema, unspecified type R60.9 [place] [address] 73390- 4020 Mar, Edema, unspecified type R60.9 [place] [address] [place] [id number] [place] [address] 19726- 5794 Feb, Edema, unspecified type R60.9 [place] [address] [place] [id number] [place] [address] 97293- 0119 Jan, Edema, unspecified type R60.9 [place] [address] [place] [id number] [place] [address] 25360- 8646 Jan, Mild persistent asthma without complication J45.30 [place] [address] [place] [id number] [place] [address] 28474- 3374 Dec, Edema, unspecified type R60.9 [place] [address] [place] [id number] [place] [address] 58184- 4396 Nov, Edema, unspecified type R60.9 and Essential hypertension I10 [place] [address] [place] [id number] [place] [address] 16676- 5201 October, Pain in left knee M25.562 [place] [address] [place] [id number] [place] [address] 27615- 3548 October, Pain in left knee M25.562 [place] [address] [place] [id number] [place] [address] 82224- 0974 October, [place] [address] [place] [id number] [place] [address] 52215- 9403 Sep, [place] [address] [place] [id number] [place] [address] 79407- 0596 17 Sep, 2016 Mild persistent asthma without complication J45.30 [facility] [address] [place] [id number] [place] [address] 58786- 7459 Sep, Pain in left knee M25.562 [facility] [address] [place] [id number] [place] [address] 45772- 7684 23 Aug, 2016 Acute nasopharyngitis J00 and Seasonal allergic rhinitis due to pollen J30.1 [facility] [address] [place] [id number] [place] [address] 62507- 2136 16 Aug, 2016 [facility] [address] 22791- 8025 Aug, Arthralgia, unspecified joint M25.50 and Pain in left knee M25.562 [place] [address] [place] [id number] [place] [address] 70221- 6899 Aug, Mild persistent asthma without complication J45.30 [facility] [address] [place] [id number] [place] [address] 65433- 9250 Jul, Mild persistent asthma without complication J45.30 [facility] [address] [place] [id number] [place] [address] 08483- 1495 13 Jul, 2016 Pain in left knee M25.562 [facility] [address] [place] [id number] [place] [address] 69658- 2735 Jun, [facility] [id number] [place] [address] 00731 -0454 Jun, [facility] [address] [place] [id number] [place] [address] 85304- 9705 Jun, Mild persistent asthma without complication J45.30 [facility] [address] [place] [id number] [place] [address] 83498- 1815 May, [facility] [address] [place] [id number] [place] [address] 36194- 5414 Apr, Restrictive lung disease J98.4 [facility] [address], [place] [address]- 4374 Apr, [place] [address] [place] [address] 65203- 5685 Apr, Mild persistent asthma without complication J45.30 [facility] [address] [place] [address] 95411 -1461 Mar, Sore throat J02.9 and Post-nasal drainage R09.82 [place] [address] [place] [address] 43790- 0652 Mar, [place] [address] [place] [id number] [place] [address] 30562- 6136 Feb, [place] [address] [place] [id number] [place] [address] 31719- 4230 Feb, Mild persistent asthma without complication J45.30 [facility] [address], [place] [address]- 8027 Feb, Arthralgia, unspecified joint M25.50 [place] [address] [place] [address] 54662- 2852 Feb, Edema, unspecified type R60.9 ; Arthralgia, unspecified joint M25.50 ; Mild persistent asthma without complication J45.30 ; Essential hypertension I10 ; Gastroesophageal reflux disease without esophagitis K21.9 and Major depressive disorder with single episode, remission status unspecified F32.9 [place] [address] [place] [address] 19130- 6517 Jan, Edema, unspecified type R60.9 ; Essential hypertension I10 ; Mild persistent asthma without complication J45.30 ; Gastroesophageal reflux disease with esophagitis K21.0 ; Arthralgia, unspecified joint M25.50 and Major depressive disorder with single episode, remission status unspecified F32.9 [place] [address] [place] [address] 84295- 9214 Jan, [facility] [address] [facility] [id number] [place] [address]- 3547 Dec, [facility] [address] [facility] [id number] [place] 0792 Dec, [facility] [address] [facility] [id number] [place] [address]- 9052 Dec, [facility] [address] [facility] [id number] [place] [address]- 6033 Nov, Bilateral edema of lower extremity R60.0 [facility] [address] [facility] [id number] [place] [address]- 4464 Nov, Bilateral edema of lower extremity R60.0 [facility] [address] [facility] [id number] [place] [address] -6411 Nov, [facility] [address] [place] [address]- 9869 Nov, [facility] [address] [facility] [id number] [place] [address]- 2670 October, [facility] [address] [place] [address]- 4585 Sep, [facility] [address] [place] [id number] [address]- 0840 Aug, Acute sinusitis J01.90 [facility] [address], [place] [address]- 9868 Aug, [facility] [address] [facility] [id number] 8332 Aug, [facility] [address] 8970 Jul, [facility] [address] [facility] [id number], [place] [address]- 5204 Jul, Pharyngitis J02.9 [facility] [address], [place] [address]- 7031 Jul, [facility] [address] [place] [id number] [place] [address] 86820- 7947 Jun, Pain in left knee M25.562 [facility] [address] [place] [id number] [place] [address] 57718- 1056 Jun, [facility] [address] [place] [id number] [place] [address] 37207 -7520 May, Upper respiratory symptom R09.89 [facility] [address] [place] [id number] [place] [address] 06840- 7757 May, [facility] [address] [place] [id number] [place] [address] 00431- 2192 Apr, Costochondritis M94.0 and Knee pain, left M25.562 [facility] [address] [place] [id number] [place] [address] 98894- 2977 Apr, [facility] [address] [place] [id number] [place] [address] 11973- 3877 Mar, Eustachian tube dysfunction, left H69.82 [facility] [address] [place] [id number] [place] [address] 43348- 8968 Mar, [facility] [address] [place] [id number] [place] [address] 28443- 2068 Mar, [facility] [address] [place] [id number] [place] [address] 33280- 4110 Mar, [facility] [address] [place] [id number] [place] [address] 87247- 3024 Feb, [facility] [address] [id number] [place] [address] 94103- 9738 Feb, [facility] [id number] [place] [address] 79751- 6698 Feb, [facility] [address] [place] [id number] [place] [address] 51983- 4371 Jan, Asthma 493.90 [facility] [address], [place] [address]- 8893 Dec, [facility] [address], [place] [address]- 3459 Dec, [facility] [address], [place] [address]- 4282 Dec, [facility] [address] [place] [address] 92198- 5745 Dec, [facility] [id number] [place] [address] 98263- 8402 Dec, Asthma, unspecified, unspecified status 493.90 [facility] [address], [place] [address]- 5264 Nov, [facility] [address] [id number] [place] [address] 81789- 5250 Nov, Asthma, unspecified, unspecified status 493.90 [facility] [address] 3034 October, Asthma, unspecified, unspecified status 493.90 [facility] [address], [place] [address]- 3358 October, [facility] [address] 7481 October, Contact dermatitis 692.9 and Candidiasis of skin 112.3 [facility] [address], [place] [address]- 5844 Sep, [facility] [address] 6562 Sep, [facility] [address] [place] [id number], [place] [address]- 3386 Aug, [facility] [address], [place] [address]- 5371 Aug, [facility] [place] [facility] [address] [id number] [place] [address]- 7638 Aug, [facility] [place] [facility] [address] [id number] [place]- 9247 Aug, [facility] [place] [facility] [address] [id number] [place] [address]- 0903 Jul, [facility] [place] [facility] [address] [id number] [place] [address]- 7292 Jul, [facility] [place] [facility] [address] [id number] [place] [address]- 5873 Jun, [facility] [place] [facility] [address] [id number] [place] [address]- 8610 Jun, [facility] [place] [facility] [address] [facility] [id number] [place] [address]- 0549 May, [facility] [place] [facility] [address] [id number] [place] [address]- 7265 May, [facility] [place] [facility] [address] [facility] [id number] [place] [address]- 7194 May, [facility] [place] [facility] [address] [facility] [id number] [place] [address]- 6569 May, [facility] [place] [facility] [address] [facility] [id number] [place] [address]- 2134 May, [facility] [place] [facility] [address] [id number] [place] [address]- 2571 May, [facility] [place] [facility] [address] [id number] [place] [address]- 8991 Apr, [facility] [place] [facility] [address] [id number] [place] [address]- 7549 Apr, [facility] [place] [facility] [address] [facility] [id number] [place] [address]- 9048 15 Feb, 2014 [facility] [place] [facility] [address] [id number] [place] [address]- 0362 15 Feb, 2013 [facility] [place] [facility] [address] [id number] [place] [address]- 4409 10 Feb, 2014 [facility] [place] [facility] [address] [id number] [place] [address]- 9616 10 Feb, 2014 [facility] [place] [facility] [address] [id number] [place] [address]- 2114 05 Feb, 2014 [facility] [place] [facility] [address] [id number] [place] [address]- 7366 05 Feb, 2014 [facility] [place] [facility] [address] [id number] [place] [address]- 3217 Jan, [facility] [place] [facility] [address] [id number] [place] [address]- 0777 Jan, [facility] [place] [facility] [address] [id number] [place] [address]- 7660 Jan, [facility] [place] [facility] [address] [id number] [place] [address]- 9996 Jan, [facility] [place] [facility] [address] [id number] [place] [address]- 8671 Jan, [facility] [place] [facility] [address] [id number] [place] [address]- 2719 Jan, [facility] [place] [facility] [address] [id number] [place] [address]- 7875 Dec, [facility] [place] [facility] [address] [id number] [place] [address]- 9584 Dec, [facility] [place] [facility] [address] [id number] [place] [address]- 6537 Nov, [facility] [place] [facility] [address] [id number] [place] [address]- 8485 Nov, [facility] [place] [facility] [address] [id number] [place] [address]- 1834 Nov, [facility] [place] [facility] [address] [id number] [place] [address]- 8347 Nov, [facility] [place] [facility] [address] [id number] [place] [address]- 5997 Nov, [facility] [place] [facility] [address] [id number] [place] [address]- 0823 Nov, [facility] [place] [facility] [address] [id number] [place] [address]- 6992 Nov, [facility] [place] [facility] [address] [id number] [place] [address]- 8671 Nov, [facility] [place] [facility] [address] [id number] [place] [address]- 0375 Nov, [facility] [place] [facility] [address] [id number] [place] [address]- 6557 Nov, [facility] [place] [facility] [address] [id number] [place] [address]- 9011 Nov, [facility] [place] [facility] [address] [id number] [place] [address]- 3864 Nov, [facility] [place] [facility] [address] [id number] [place] [address]- 6148 Nov, [facility] [place] [facility] [address] [id number] [place] [address]- 4559 October, [facility] [place] [facility] [address] [id number], [place] [address]- 9838 October, [facility] [place] [facility] [address] [id number] [place] [address]- 2855 October, [facility] [place] [facility] [address] [id number] [place] [address]- 5869 October, [facility] [place] [facility] [address] [id number] [place] [address]- 3792 Sep, [facility] [place] [facility] [address] [id number] [place] [address]- 6491 Sep, [facility] [place] [facility] [address] [id number] [place] [address]- 5330 Sep, [facility] [place] [facility] [address] [id number] [place] [address]- 2814 Sep, [facility] [place] [facility] [address] [id number] [place] [address]- 6064 Aug, [facility] [place] [facility] [address] [id number] [place] [address]- 8494 Aug, [facility] [place] [facility] [address] [id number] [place] [address]- 1996 Jul, [facility] [place] [facility] [address] [id number] [place] [address]- 0914 Jul, [facility] [place] [facility] [address] [id number] [place] [address]- 6879 Jun, [facility] [place] [facility] [address] [id number] [place] [address]- 0475 Jun, [facility] [place] [facility] [address] [id number] [place] [address]- 5225 Mar, [facility] [place] [facility] [address] [id number] [place] [address]- 6210 Mar, [facility] [place] [facility] [address] [id number] [place] [address]- 4575 Mar, [facility] [place] [facility] [address] [id number] [place] [address]- 1746 Mar, [facility] [place] [facility] [address] [id number] [place] [address]- 0490 Mar, [facility] [place] [facility] [address] [id number] [place] 0407 Feb, [facility] [place] [facility] [address] [id number] [place] [address]- 7314 Feb, [facility] [place] [facility] [address] [id number] [place] [address]- 6632 Dec, [facility] [address] [id number] [place] [address] Nov, [facility] [address] [id number] [place] [address] October, [facility] [address] [id number] [place] [address] Sep, [facility] [address] [id number] [place] [address] Sep, [facility] [address] [id number] [place] [address] Aug, [facility] [address] [id number] [place] [address] Aug, [facility] [address] [id number] [place] [address] Aug, [facility] [address] [id number] [place] [address] Aug, [facility] [address] [id number] [place] [address] Jun, [facility] [address] [id number] [place] [address] Jun, [facility] [address] [id number] [place] [address] Jun, [facility] [address] [id number] [place] [address] May, [facility] [address] [id number] [place] [address] May, [facility] [address] [id number] [place] [address] Apr, [facility] [address] [id number] [place] [address] Apr, [facility] [place] [facility] [address] [id number] [place] [address] Apr, [facility] [place] [facility] [address] [id number] [place] [address] Apr, [facility] [place] [facility] [address] [id number] [place] [address] Apr, [facility] [place] [facility] [address] [id number] [place] [address] Apr, [facility] [place] [facility] [address] [id number] [place] [address] Apr, [facility] [place] [facility] [address] [id number] [place] [address] Mar, [facility] [place] [facility] [address] [id number] [place] [address] Mar, [facility] [place] [facility] [address] [id number] [place] [address] 18 Feb, 2012 [facility] [place] [facility] [address] [id number] [place] [address] 17 Feb, 2012 [facility] [place] [facility] [address] [id number] [place] [address] 13 Feb, 2012 [facility] [place] [facility] [address] [id number] [place] [address] 15 Jan, 2012 [facility] [place] [facility] [address] [id number] [place] [address] 14 Jan, 2012 [facility] [place] [facility] [address] [id number] [place] [address] Jan, [facility] [place] [facility] [address] [id number] [place] [address] Jan, [facility] [place] [facility] [address] [id number] [place] [address] Dec, [facility] [place] [facility] [address] [id number] [place] [address] 20 Dec, 2011 [facility] [address] [id number] [place] [address] 18 Dec, 2011 [facility] [place] [facility] [address] [id number] [place] [address] 17 Dec, 2011 [facility] [address] [id number] [place] [address] 10 Dec, 2011 [facility] [address] [id number] [place] [address] 14 Nov, 2011 [facility] [facility] [address] [id number] [place] [address] 14 Nov, 2011 [facility] [address] [id number] [place] [address] Nov, [facility] [address] [id number] [place] [address] Nov, [facility] [address] [id number] [place] [address] October, [facility] [address] [id number] [place] [address] October, [facility] [address] [id number] [place] [address] October, [facility] [address] [id number] [place] [address] October, [facility] [address] [id number] [place] [address] October, [facility] [place] [facility] [address] [id number] [place] [address] Sep, [facility] [place] [facility] [address] [id number] [place] [address] Sep, [facility] [place] [facility] [address] [id number] [place] [address] Sep, [facility] [place] [facility] [address] [id number] [place] [address] 11 Sep, 2011 [facility] [place] [facility] [address] [id number] [place] [address] 03 Sep, 2011 [facility] [place] [facility] [address] [id number] [place] [address] 29 Aug, 2011 [facility] [place] [facility] [address] [id number] [place] [address] 28 Aug, 2011 [facility] [place] [facility] [address] [id number] [place] [address] 27 Aug, 2011 [facility] [place] [facility] [address] [id number] [place] [address] 26 Aug, 2011 [facility] [place] [facility] [address] [id number] [place] [address] 23 Aug, 2011 [facility] [place] [facility] [address] [id number] [place] [address] 20 Aug, 2011 [facility] [place] [facility] [address] [id number] [place] [address] 19 Aug, 2011 [facility] [place] [facility] [address] [id number] [place] [address] 17 Aug, 2011 [facility] [place] [facility] [address] [id number] [place] [address] 18 Jun, 2011 [facility] [place] [facility] [address] [id number] [place] [address] Jun, [facility] [place] [facility] [address] [id number] [place] [address] 11 Jun, 2011 [facility] [place] [facility] [address] [id number] [place] [address] 10 Jun, 2011 [facility] [place] [facility] [address] [id number] [place] [address] 06 Jun, 2011 [facility] [place] [facility] [id number] [address] May, [facility] [address] [place] [address] Apr, [facility] [address], [place] [address] October, [facility] [id number], [place] [address] May, [facility] [id number] [place] [address] May, [facility] [id number] [place] [address] Apr, [facility] [id number], [place] [address] Jan, [facility] [id number] [place] [address] Dec, [facility] [id number], [place] [address] Sep, [facility] [id number], [place] [address] Sep, [facility] [address], [place] [address] Jul, [facility] [id number], [place] [address] May, [facility] [id number], [place] [address] Jan, IMMUNIZATIONS No Known Immunizations SOCIAL HISTORY Never Assessed REASON FOR VISIT abscess-cont symptoms--tcuppetttRN PLAN OF CARE Activity Details Follow Up 4 Weeks, prn Reason:RUQ pain VITAL SIGNS Height 64 in 2017-09-11 Weight 253.4 lbs 2017-09-11 Temperature 98.6 degrees Fahrenheit 2017-09-11 Heart Rate 88 bpm 2017-09-11 Respiratory Rate 20 2017-09-11 BMI 43.49 kg/m2 2017-09-11 Blood pressure systolic 124 mmHg 2017-09-11 Blood pressure diastolic 80 mmHg 2017-09-11 MEDICATIONS Medication Instructions Dosage Frequency Start Date End Date Duration Status Advair Diskus 250-50 MCG/DOSE Inhalation Twice a day 1 puff 12h Nov, 60 days Active Tramadol HCl 50 MG Orally 1 tablet 3 times a day as needed 1 tablet 28 days Active Spiriva Respimat 1.25 MCG/ACT Inhalation Once a day 2 puffs 24h Aug, 90 days Active Hydrochlorothiazide 50 mg TAKE ONE TABLET BY MOUTH ONCE DAILY 30 Active Omeprazole 20 MG TAKE ONE CAPSULE BY MOUTH ONCE DAILY 30 Active Losartan Potassium 25 MG TAKE ONE TABLET BY MOUTH ONCE DAILY 30 Active Lamisil 250 MG Orally Once a day 1 tablet 24h Aug, Sep, 30 days Active Cyclobenzaprine HCl 5 MG TAKE ONE TABLET BY MOUTH TWICE DAILY 30 Active Ibuprofen 800 MG Orally Three times a day 1 tablet 8h Active Proventil HFA 108 (90 Base) MCG/ACT Inhalation every 4 hrs 2 puffs as needed 4h Feb, 30 days Active Wellbutrin XL 150 MG Orally Once a day 1 tablet in the morning 24h Active Albuterol Sulfate (2.5 MG/3ML) 0.083% inhale 3 milliliters (2.5 mg) by nebulization route 4 times per day PRN for wheezing or cough Aug, Active RESULTS Name Result Date Reference Range Ultrasound : Abdominal, COMPLETE 2017-09-11 HEP C ANTIBODY (STATE) RESULTS HEP B SURFACE ANTIGEN (STATE) HEP B ANTIBODY HEP B ANTIBODY (RML) HEP B ANTIBODY (STATE) PROCEDURES Procedure Date Ordered Result Body Site No Charge September 11, 2017 INSTRUCTIONS MEDICATIONS ADMINISTERED No Known Medications [...]
--- OUTSIDE RECORDS SUMMARY | 2018-05-04 07:32 | XMS REPORT ---
Author Author RADHA CARIAS [facility] IN [facility] Address [address] [place] [address] Care Team Providers Care Peanut Shaker Name Role Phone RADHA CARIAS Unavailable PROBLEMS Type Condition ICD9-CM Code [id number] Code Onset Dates Condition Status SNOMED Code Problem Mild persistent asthma without complication J45.30 Active 123137617 Problem Edema, unspecified type R60.9 Active 325138391 Problem Gastroesophageal reflux disease with esophagitis K21.0 Active 866393888 Problem Essential hypertension I10 Active 16483796 Problem Moderate persistent asthma with exacerbation J45.41 Active 717592818 Problem Other chronic pain G89.29 Active 91822182 Problem Esophageal abnormality K22.9 Active 52652026 Problem Hammer toe of right foot M20.41 Active 281682600 Problem Abnormal EKG R94.31 Active 204409532 Problem Right upper quadrant abdominal pain R10.11 Active 185146100 ALLERGIES Substance Reaction Event Type Date Status Naprosyn itching Drug Allergy Aug, Active Micardis Unknown Drug Allergy Aug, Active Hydrocodone Bitartrate itching Drug Allergy Aug, Active Celebrex swelling Drug Allergy Aug, Active Doxycycline scalp rash Drug Allergy Aug, Active ENCOUNTERS Encounter Location Date Diagnosis [place] [id number] [place] [address] 34242- 1954 Dec, BMI 40.0-44.9, adult Z68.41 ; Other chronic pain G89.29 and Pain in left hip M25.552 [place] [id number] [place] [address] 35405- 2699 Nov, Abscess L02.91 [place] [address], [place] [address] 6769 Nov, Moderate persistent asthma with exacerbation J45.41 [place] [address] [place] [id number] [place] [address] 18948- 3975 Nov, Low back pain M54.5 and Other chronic pain G89.29 [place] [address] [place] [id number] [place] [address] 74220- 1950 October, Abscess L02.91 [place] [address] [place] [id number] [place] [address] 43996- 9360 October, Cutaneous abscess of back excluding buttocks L02.212 and BMI 40.0-44.9, adult Z68.41 [place] [address] [place] [id number] [place] [address] 79943- 6248 October, [place] [address] [place] [id number] [place] [address] 85230- 4847 October, [place] [address] [place] [id number] [place] [address] 15599- 0289 Sep, [place] [address] [place] [id number] [place] [address] 33248- 3964 Sep, Abscess L02.91 [place] [address] [place] [id number] [place] [address] 54173- 0246 Sep, Right upper quadrant abdominal pain R10.11 ; Mild persistent asthma without complication J45.30 and BMI 40.0-44.9, adult Z68.41 [place] [address] [place] [id number] [place] [address] 78578- 1054 Aug, Abscess L02.91 and BMI 40.0-44.9, adult Z68.41 [place] [address] [place] [id number] [place] [address] 75589- 1620 Aug, Edema, unspecified type R60.9 [place] [address] [place] [id number] [place] [address] 81318- 9643 Aug, Right upper quadrant abdominal pain R10.11 ; Abnormal EKG R94.31 ; Esophageal abnormality K22.9 and BMI 40.0-44.9, adult Z68.41 [place] [address] [place] [id number] [place] [address] 63126- 1141 23 Aug, 2017 Hammer toe of right foot M20.41 and Onychomycosis B35.1 [facility] [address] [place] [id number] [place] [address] 63923 -9539 19 Aug, 2017 Myalgia M79.1 [place] [address] 92138- 2544 19 Aug, 2017 [place] [address] [place] [id number] [place] [address] 32251- 1731 Aug, Annual physical exam Z00.00 ; BMI 40.0-44.9, adult Z68.41 ; Mild persistent asthma without complication J45.30 ; Gastroesophageal reflux disease with esophagitis K21.0 ; Acute right-sided thoracic back pain M54.6 ; Trouble breathing R06.89 and Neck pain M54.2 [place] [address] 09283- 9068 Jul, Mild persistent asthma without complication J45.30 [place] [address] 32945- 5210 Jul, Edema, unspecified type R60.9 [place] [address] 62263- 1892 Jun, Edema, unspecified type R60.9 [place] [address] [place] [id number] [place] [address] 74561- 7700 Jun, Moderate persistent asthma with exacerbation J45.41 [place] [address] [place] [id number] [place] [address] 16040- 8193 May, Edema, unspecified type R60.9 [place] [address] 69729- 0242 May, Moderate persistent asthma with exacerbation J45.41 and Hammer toe of right foot M20.41 [place] [address] [place] [address]- 8974 May, Moderate persistent asthma without complication J45.40 ; Dysfunction of left eustachian tube H69.82 and BMI 45.0-49.9, adult Z68.42 [facility] [address] [place] [id number] [place] [address] 47626- 8583 Apr, Edema, unspecified type R60.9 [place] [address] 66212- 0710 Mar, Edema, unspecified type R60.9 [place] [address] [place] [id number] [place] [address] 87931- 8162 Feb, Edema, unspecified type R60.9 [place] [address] [place] [id number] [place] [address] 27952- 5768 Jan, Edema, unspecified type R60.9 [place] [address] [place] [id number] [place] [address] 30272- 2962 Jan, Mild persistent asthma without complication J45.30 [place] [address] [place] [id number] [place] [address] 71495- 9895 Dec, Edema, unspecified type R60.9 [place] [address] [place] [id number] [place] [address] 24756- 0295 Nov, Edema, unspecified type R60.9 and Essential hypertension I10 [place] [address] [place] [id number] [place] [address] 07633- 9105 October, Pain in left knee M25.562 [place] [address] [place] [id number] [place] [address] 57214- 1335 October, Pain in left knee M25.562 [place] [address] [place] [id number] [place] [address] 44117- 9433 October, [place] [address] [place] [id number] [place] [address] 47030- 8262 Sep, [place] [address] [place] [id number] [place] [address] 67305- 3194 17 Sep, 2016 Mild persistent asthma without complication J45.30 [facility] [address] [place] [id number] [place] [address] 43543- 0210 Sep, Pain in left knee M25.562 [facility] [address] [place] [id number] [place] [address] 25862- 8802 23 Aug, 2016 Acute nasopharyngitis J00 and Seasonal allergic rhinitis due to pollen J30.1 [facility] [address] [place] [id number] [place] [address] 36191- 8563 16 Aug, 2016 [facility] [address] 47382- 4994 Aug, Arthralgia, unspecified joint M25.50 and Pain in left knee M25.562 [place] [address] [place] [id number] [place] [address] 21850- 8986 Aug, Mild persistent asthma without complication J45.30 [facility] [address] [place] [id number] [place] [address] 41620- 6511 Jul, Mild persistent asthma without complication J45.30 [facility] [address] [place] [id number] [place] [address] 00364- 9799 13 Jul, 2016 Pain in left knee M25.562 [facility] [address] [place] [id number] [place] [address] 63891- 5041 Jun, [facility] [address] [place] [address] 45471 -4986 Jun, [facility] [address] [place] [id number] [place] [address] 41106- 7793 Jun, Mild persistent asthma without complication J45.30 [facility] [address] [place] [id number] [place] [address] 94825- 1133 May, [facility] [address] [place] [id number] [place] [address] 86939- 4427 Apr, Restrictive lung disease J98.4 [facility] [address], [place] [address]- 3966 Apr, [place] [address] [place] [address] 97769- 5069 Apr, Mild persistent asthma without complication J45.30 [facility] [address] [place] [address] 50519 -6074 Mar, Sore throat J02.9 and Post-nasal drainage R09.82 [place] [address] [place] [address] 03490- 1210 Mar, [place] [address] [place] [id number] [place] [address] 17369- 1556 Feb, [place] [address] [place] [id number] [place] [address] 54900- 6196 Feb, Mild persistent asthma without complication J45.30 [facility] [address], [place] [address]- 5294 Feb, Arthralgia, unspecified joint M25.50 [place] [address] [place] [address] 47326- 9366 Feb, Edema, unspecified type R60.9 ; Arthralgia, unspecified joint M25.50 ; Mild persistent asthma without complication J45.30 ; Essential hypertension I10 ; Gastroesophageal reflux disease without esophagitis K21.9 and Major depressive disorder with single episode, remission status unspecified F32.9 [place] [address] [place] [address] 42735- 1079 Jan, Edema, unspecified type R60.9 ; Essential hypertension I10 ; Mild persistent asthma without complication J45.30 ; Gastroesophageal reflux disease with esophagitis K21.0 ; Arthralgia, unspecified joint M25.50 and Major depressive disorder with single episode, remission status unspecified F32.9 [place] [address] [place] [address] 50100- 5001 Jan, [facility] [address] [facility] [id number] [place] [address]- 4941 Dec, [facility] [address] [facility] [id number] [place] 8831 Dec, [facility] [address] [facility] [id number] [place] [address]- 3587 Dec, [facility] [address] [facility] [id number] [place] [address]- 4092 Nov, Bilateral edema of lower extremity R60.0 [facility] [address] [facility] [id number] [place] [address]- 7091 Nov, Bilateral edema of lower extremity R60.0 [facility] [address] [facility] [id number] [place] [address] -7037 Nov, [facility] [address] [place] [address]- 9351 Nov, [facility] [address] [facility] [id number] [place] [address]- 9299 October, [facility] [address] [place] [address]- 5334 Sep, [facility] [address] [place] [id number] [address]- 3523 Aug, Acute sinusitis J01.90 [facility] [address], [place] [address]- 5327 Aug, [facility] [address] [facility] [id number] 7143 Aug, [facility] [address] 1558 Jul, [facility] [address] [facility] [id number], [place] [address]- 9837 Jul, Pharyngitis J02.9 [facility] [address], [place] [address]- 1716 Jul, [facility] [address] [place] [id number] [place] [address] 18065- 6091 Jun, Pain in left knee M25.562 [facility] [address] [place] [id number] [place] [address] 81173- 1349 Jun, [facility] [address] [place] [id number] [place] [address] 14772 -6612 May, Upper respiratory symptom R09.89 [facility] [address] [place] [id number] [place] [address] 85163- 4999 May, [facility] [address] [place] [id number] [place] [address] 40268- 0798 Apr, Costochondritis M94.0 and Knee pain, left M25.562 [facility] [address] [place] [id number] [place] [address] 46468- 8371 Apr, [facility] [address] [place] [id number] [place] [address] 39266- 2792 Mar, Eustachian tube dysfunction, left H69.82 [facility] [address] [place] [id number] [place] [address] 87907- 4223 Mar, [facility] [address] [place] [id number] [place] [address] 55155- 7505 Mar, [facility] [address] [place] [id number] [place] [address] 48073- 6741 Mar, [facility] [address] [place] [id number] [place] [address] 26189- 3270 Feb, [facility] [address] [place] [id number] [place] [address] 87343- 1515 Feb, [facility] [id number] [place] [address] 77271- 3408 Feb, [facility] [address] [place] [id number] [place] [address] 98902- 3026 Jan, Asthma 493.90 [facility] [address], [place] [address]- 7190 Dec, [facility] [address], [place] [address]- 6039 Dec, [facility] [address], [place] [address]- 9721 Dec, [facility] [id number] [place] [address] 41987- 7106 Dec, [facility] [id number] [place] [address] 97197- 1841 Dec, Asthma, unspecified, unspecified status 493.90 [facility] [address], [place] [address]- 1589 Nov, [facility] [address] [place] [id number] [place] [address] 35166- 5772 Nov, Asthma, unspecified, unspecified status 493.90 [facility] [address] 4162 October, Asthma, unspecified, unspecified status 493.90 [facility] [address], [place] [address]- 2856 October, [facility] [address] 5690 October, Contact dermatitis 692.9 and Candidiasis of skin 112.3 [facility] [address], [place] [address]- 7757 Sep, [facility] [address] 4201 Sep, [facility] [address] [place] [id number] [address]- 6705 Aug, [facility] [address], [place] [address]- 1605 Aug, [facility] [place] [facility] [address] [id number] [place] [address]- 8877 Aug, [facility] [place] [facility] [address] [id number] [place] 1262 Aug, [facility] [place] [facility] [address] [id number] [place] [address]- 1481 Jul, [facility] [place] [facility] [address] [id number] [place] [address]- 5663 Jul, [facility] [place] [facility] [address] [id number] [place] [address]- 0778 Jun, [facility] [place] [facility] [address] [id number] [place] [address]- 1463 Jun, [facility] [place] [facility] [address] [facility] [id number] [place] [address]- 1967 May, [facility] [place] [facility] [address] [id number] [place] [address]- 8870 May, [facility] [place] [facility] [address] [facility] [id number] [place] [address]- 4538 May, [facility] [place] [facility] [address] [facility] [id number] [place] [address]- 0941 May, [facility] [place] [facility] [address] [facility] [id number] [place] [address]- 7423 May, [facility] [place] [facility] [address] [id number] [place] [address]- 3500 May, [facility] [place] [facility] [address] [id number] [place] [address]- 0702 Apr, [facility] [place] [facility] [address] [id number] [place] [address]- 6180 Apr, [facility] [place] [facility] [address] [facility] [id number] [place] [address]- 2323 15 Feb, 2014 [facility] [place] [facility] [address] [id number] [place] [address]- 7119 15 Feb, 2013 [facility] [place] [facility] [address] [id number] [place] [address]- 8675 10 Feb, 2014 [facility] [place] [facility] [address] [id number] [place] [address]- 7706 10 Feb, 2014 [facility] [place] [facility] [address] [id number] [place] [address]- 1756 05 Feb, 2014 [facility] [place] [facility] [address] [id number] [place] [address]- 1572 05 Feb, 2014 [facility] [place] [facility] [address] [id number] [place] [address]- 5967 Jan, [facility] [place] [facility] [address] [id number] [place] [address]- 6841 Jan, [facility] [place] [facility] [address] [id number] [place] [address]- 5808 Jan, [facility] [place] [facility] [address] [id number] [place] [address]- 5508 Jan, [facility] [place] [facility] [address] [id number] [place] [address]- 8301 Jan, [facility] [place] [facility] [address] [id number] [place] [address]- 2043 Jan, [facility] [place] [facility] [address] [id number] [place] [address]- 6229 Dec, [facility] [place] [facility] [address] [id number] [place] [address]- 8600 Dec, [facility] [place] [facility] [address] [id number] [place] [address]- 8306 Nov, [facility] [place] [facility] [address] [id number] [place] [address]- 8270 Nov, [facility] [place] [facility] [address] [id number] [place] [address]- 2005 Nov, [facility] [place] [facility] [address] [id number] [place] [address]- 1363 Nov, [facility] [place] [facility] [address] [id number] [place] [address]- 4320 Nov, [facility] [place] [facility] [address] [id number] [place] [address]- 2129 Nov, [facility] [place] [facility] [address] [id number] [place] [address]- 5759 Nov, [facility] [place] [facility] [address] [id number] [place] [address]- 7917 Nov, [facility] [place] [facility] [address] [id number] [place] [address]- 3271 Nov, [facility] [place] [facility] [address] [id number] [place] [address]- 3429 Nov, [facility] [place] [facility] [address] [id number] [place] [address]- 7991 Nov, [facility] [place] [facility] [address] [id number] [place] [address]- 7659 Nov, [facility] [place] [facility] [address] [id number] [place] [address]- 6056 Nov, [facility] [place] [facility] [address] [id number] [place] [address]- 4866 October, [facility] [place] [facility] [address] [id number], [place] [address]- 9772 October, [facility] [place] [facility] [address] [id number] [place] [address]- 6744 October, [facility] [place] [facility] [address] [id number] [place] [address]- 9820 October, [facility] [place] [facility] [address] [id number] [place] [address]- 6149 Sep, [facility] [place] [facility] [address] [id number] [place] [address]- 1681 Sep, [facility] [place] [facility] [address] [id number] [place] [address]- 7708 Sep, [facility] [place] [facility] [address] [id number] [place] [address]- 5419 Sep, [facility] [place] [facility] [address] [id number] [place] [address]- 5668 Aug, [facility] [place] [facility] [address] [id number] [place] [address]- 9808 Aug, [facility] [place] [facility] [address] [id number] [place] [address] Jul, [facility] [place] [facility] [address] [id number] [place] [address] Jul, [facility] [place] [facility] [address] [id number] [place] [address] Jun, [facility] [place] [facility] [address] [id number] [place] [address] Jun, [facility] [place] [facility] [address] [id number] [place] [address] Mar, [facility] [place] [facility] [address] [id number] [place] [address] Mar, [facility] [place] [facility] [address] [id number] [place] [address] Mar, [facility] [place] [facility] [address] [id number] [place] [address] Mar, [facility] [place] [facility] [address] [id number] [place] [address] Mar, [facility] [place] [facility] [address] [id number] [place] [id number] Feb, [facility] [place] [facility] [address] [id number] [place] [address] Feb, [facility] [place] [facility] [address] [id number] [place] [address] Dec, [facility] [address] [id number] [place] [address] Nov, [facility] [address] [id number] [place] [address] October, [facility] [address] [id number] [place] [address] Sep, [facility] [address] [id number] [place] [address] Sep, [facility] [address] [id number] [place] [address] Aug, [facility] [address] [id number] [place] [address] Aug, [facility] [address] [id number] [place] [address] Aug, [facility] [address] [id number] [place] [address] Aug, [facility] [address] [id number] [place] [address] Jun, [facility] [address] [id number] [place] [address] Jun, [facility] [address] [id number] [place] [address] Jun, [facility] [address] [id number] [place] [address] May, [facility] [address] [id number] [place] [address] May, [facility] [address] [id number] [place] [address] Apr, [facility] [address] [id number] [place] [address] Apr, [facility] [place] [facility] [address] [id number] [place] [address] Apr, [facility] [place] [facility] [address] [id number] [place] [address] Apr, [facility] [place] [facility] [address] [id number] [place] [address] Apr, [facility] [place] [facility] [address] [id number] [place] [address] Apr, [facility] [place] [facility] [address] [id number] [place] [address] Apr, [facility] [place] [facility] [address] [id number] [place] [address] Mar, [facility] [place] [facility] [address] [id number] [place] [address] Mar, [facility] [place] [facility] [address] [id number] [place] [address] 18 Feb, 2012 [facility] [place] [facility] [address] [id number] [place] [address] 17 Feb, 2012 [facility] [place] [facility] [address] [id number] [place] [address] 13 Feb, 2012 [facility] [place] [facility] [address] [id number] [place] [address] 15 Jan, 2012 [facility] [place] [facility] [address] [id number] [place] [address] 14 Jan, 2012 [facility] [place] [facility] [address] [id number] [place] [address] Jan, [facility] [place] [facility] [address] [id number] [id number] [address] Jan, [facility] [place] [facility] [address] [id number] [place] [address] Dec, [facility] [place] [facility] [address] [id number] [place] [address] 20 Dec, 2011 [facility] [address] [id number] [place] [address] 18 Dec, 2011 [facility] [place] [facility] [address] [id number] [place] [address] 17 Dec, 2011 [facility] [address] [id number] [place] [address] 10 Dec, 2011 [facility] [address] [id number] [place] [address] 14 Nov, 2011 [facility] [address] [id number] [place] [address] 2018 14 Nov, 2011 [facility] [address] [id number] [place] [address] Nov, [facility] [address] [id number] [place] [address] Nov, [facility] [address] [id number] [place] [address] October, [facility] [address] [id number] [place] [address] October, [facility] [address] [id number] [place] [address] October, [facility] [address] [id number] [place] [address] October, [facility] [address] [id number] [place] [address] October, [facility] [place] [facility] [address] [id number] [place] [address] Sep, [facility] [place] [facility] [address] [id number] [place] [address] Sep, [facility] [place] [facility] [address] [id number] [place] [address] Sep, [facility] [place] [facility] [address] [id number] [place] [address] 99[address] 11 Sep, 2011 [facility] [place] [facility] [address] [id number] [place] [address] 03 Sep, 2011 [facility] [place] [facility] [address] [id number] [place] [address] 29 Aug, 2011 [facility] [place] [facility] [address] [id number] [place] [address] 28 Aug, 2011 [facility] [place] [facility] [address] [id number] [place] [address] 27 Aug, 2011 [facility] [place] [facility] [address] [id number] [place] [address] 26 Aug, 2011 [facility] [place] [facility] [address] [id number] [place] [address] 23 Aug, 2011 [facility] [place] [facility] [address] [id number] [place] [address] 20 Aug, 2011 [facility] [place] [facility] [address] [id number] [place] [address] 19 Aug, 2011 [facility] [place] [facility] [address] [id number] [place] [address] 7034 17 Aug, 2011 [facility] [place] [facility] [address] [id number] [place] [address] 18 Jun, 2011 [facility] [place] [facility] [address] [id number] [place] [address] Jun, [facility] [place] [facility] [address] [id number] [place] [address] 288[address] 11 Jun, 2011 [facility] [place] [facility] [address] [id number] [place] [address] 2423 10 Jun, 2011 [facility] [place] [facility] [address] [id number] [place] [address] 98[address] 06 Jun, 2011 [facility] [place] [facility] [address] [id number], [place] [address] May, [facility] [id number] [place] [address] Apr, [facility] [id number] [place] [address] October, [facility] [id number], [place] [address] May, [facility] [id number] [place] [address] May, [facility] [id number], [place] [address] Apr, [facility] [id number] [place] [address] Jan, [facility] [id number], [place] [address] Dec, [facility] [id number], [place] [address] Sep, [facility] [id number], [place] [address] Sep, [facility] [id number], [place] [address] Jul, [facility] [id number], [place] [address] May, [facility] [id number] [address] Jan, IMMUNIZATIONS No Known Immunizations SOCIAL HISTORY Never Assessed REASON FOR VISIT rt left back abscess , she was at [facility] she had a procedure done and she is here to check at her incision -- shanelle nunes PLAN OF CARE Activity Details Follow Up 3 Months, prn Reason:chronic conditions VITAL SIGNS Height 64 in 2017-09-02 Weight 253.0 lbs 2017-09-02 Temperature 98.0 degrees Fahrenheit 2017-09-02 Heart Rate 80 bpm 2017-09-02 Respiratory Rate 20 2017-09-02 BMI 43.42 kg/m2 2017-09-02 Blood pressure systolic 132 mmHg 2017-09-02 Blood pressure diastolic 82 mmHg 2017-09-02 MEDICATIONS Medication Instructions Dosage Frequency Start Date End Date Duration Status Tramadol HCl 50 MG Orally 1 tablet 3 times a day as needed 1 tablet 28 days Active Hydrochlorothiazide 50 mg TAKE ONE TABLET BY MOUTH ONCE DAILY 30 Active Advair Diskus 250-50 MCG/DOSE Inhalation Twice a day 1 puff 12h Nov, 60 days Active Omeprazole 20 MG TAKE ONE CAPSULE BY MOUTH ONCE DAILY 30 Active Cyclobenzaprine HCl 5 MG TAKE ONE TABLET BY MOUTH TWICE DAILY 30 Active Albuterol Sulfate (2.5 MG/3ML) 0.083% inhale 3 milliliters (2.5 mg) by nebulization route 4 times per day PRN for wheezing or cough Aug, Active Lamisil 250 MG Orally Once a day 1 tablet 24h Aug, Sep, 30 days Active Spiriva Respimat 1.25 MCG/ACT Inhalation Once a day 2 puffs 24h Aug, 90 days Active Ibuprofen 800 MG Orally Three times a day 1 tablet 8h Active Losartan Potassium 25 MG TAKE ONE TABLET BY MOUTH ONCE DAILY 30 Active Wellbutrin XL 150 MG Orally Once a day 1 tablet in the morning 24h Active Proventil HFA 108 (90 Base) MCG/ACT Inhalation every 4 hrs 2 puffs as needed 4h Feb, Active RESULTS No Results PROCEDURES No Known [...]
--- OUTSIDE RECORDS SUMMARY | 2018-05-04 07:33 | XMS REPORT ---
Author Author JENNIFER CANCINO Organization [facility] Address [address] [place] [address] Care Team Providers Care Phone Specialist Name Role Phone JENNIFER CANCINO Unavailable PROBLEMS Type Condition ICD9-CM Code NNX65-ON Code Onset Dates Condition Status SNOMED Code Problem Mild persistent asthma without complication J45.30 Active 151019452 Problem Edema, unspecified type R60.9 Active 589483885 Problem Gastroesophageal reflux disease with esophagitis K21.0 Active 511887124 Problem Essential hypertension I10 Active 86030675 Problem Moderate persistent asthma with exacerbation J45.41 Active 283122665 Problem Other chronic pain G89.29 Active 57722615 Problem Esophageal abnormality K22.9 Active 64483931 Problem Hammer toe of right foot M20.41 Active 081428749 Problem Abnormal EKG R94.31 Active 976152471 Problem Right upper quadrant abdominal pain R10.11 Active 967577330 ALLERGIES No Information ENCOUNTERS Encounter Location Date Diagnosis [place] [id number] [place] [address] 97545- 7635 Dec, BMI 40.0-44.9, adult Z68.41 ; Other chronic pain G89.29 and Pain in left hip M25.552 [place] [id number] [place] [address] 18729- 8943 Nov, Abscess L02.91 [place] [id number] [place] [address] 40358- 4547 Nov, Moderate persistent asthma with exacerbation J45.41 [place] [id number] [place] [address] 81878- 1619 Nov, Low back pain M54.5 and Other chronic pain G89.29 [place] [id number] [place] [address] 69195- 1265 October, Abscess L02.91 [place] [id number] [place] [address] 41031- 8172 October, Cutaneous abscess of back excluding buttocks L02.212 and BMI 40.0-44.9, adult Z68.41 [place] [id number] [place] [address] 45872- 6081 October, [place] [address] 63237- 1860 October, [place] [id number] [place] [address] 21455- 0790 Sep, [place] [address] 32151- 8920 Sep, Abscess L02.91 [place] [address] 29099- 9398 Sep, Right upper quadrant abdominal pain R10.11 ; Mild persistent asthma without complication J45.30 and BMI 40.0-44.9, adult Z68.41 [place] [address] 63894- 5815 Aug, Abscess L02.91 and BMI 40.0-44.9, adult Z68.41 [place] [id number] [place] [address] 44203- 3365 Aug, Edema, unspecified type R60.9 [place] [id number] [place] [address] 27108- 1048 Aug, Right upper quadrant abdominal pain R10.11 ; Abnormal EKG R94.31 ; Esophageal abnormality K22.9 and BMI 40.0-44.9, adult Z68.41 [place] [id number] [place] [address] 91577- 2013 Aug, Hammer toe of right foot M20.41 and Onychomycosis B35.1 [facility] [address] [address] Aug, Myalgia M79.1 [place] [address] 66572- 0726 Aug, [place] [address] 76823- 3826 Aug, Annual physical exam Z00.00 ; BMI 40.0-44.9, adult Z68.41 ; Mild persistent asthma without complication J45.30 ; Gastroesophageal reflux disease with esophagitis K21.0 ; Acute right-sided thoracic back pain M54.6 ; Trouble breathing R06.89 and Neck pain M54.2 [place] [address] 25895- 7322 28 Jul, 2017 Mild persistent asthma without complication J45.[address] 60259- 3884 Jul, Edema, unspecified type R60.[address] 74197- 1365 Jun, Edema, unspecified type R60.[address] 02676- 9113 Jun, Moderate persistent asthma with exacerbation J45.[address] 24203- 8935 May, Edema, unspecified type R60.9 [place] [address] 43624- 2847 May, Moderate persistent asthma with exacerbation J45.41 and Hammer toe of right foot M20.[address] 98742- 7094 04 May, 2017 Moderate persistent asthma without complication J45.40 ; Dysfunction of left eustachian tube H69.82 and BMI 45.0-49.9, adult Z68.[address] [place] [address]- 4845 Apr, Edema, unspecified type R60.9 [facility] [id number] [place] [address] 83830- 2959 Mar, Edema, unspecified type R60.9 [facility] [id number] [place] [address] 31116- 3927 Feb, Edema, unspecified type R60.9 [facility] [id number] [place] [address] 84496- 5503 Jan, Edema, unspecified type R60.9 [place] [address] 77914- 2953 Jan, Mild persistent asthma without complication J45.30 [place] [id number] [place] [address] 29139- 2909 Dec, Edema, unspecified type R60.9 [place] [id number] [place] [address] 91969- 9708 Nov, Edema, unspecified type R60.9 and Essential hypertension I10 [place] [id number] [place] [address] 49703- 5095 October, Pain in left knee M25.562 [facility] [id number] [place] [address] 25388- 4821 October, Pain in left knee M25.562 [facility] [id number] [place] [address] 43051- 2397 October, [facility] [id number] [place] [address] 56347- 4792 Sep, [facility] [id number] [place] [address] 90328- 7737 Sep, Mild persistent asthma without complication J45.30 [facility] [id number] [place] [address] 36062- 6474 Sep, Pain in left knee M25.562 [facility] [id number] [place] [address] 53760- 7617 23 Aug, 2016 Acute nasopharyngitis J00 and Seasonal allergic rhinitis due to pollen J30.1 [facility] [id number] [place] [address] 20996- 2944 16 Aug, 2016 [facility] [id number] [place] [address] 74904- 6432 13 Aug, 2016 Arthralgia, unspecified joint M25.50 and Pain in left knee M25.562 [facility] [id number] [place] [address] 55669- 1646 08 Aug, 2016 Mild persistent asthma without complication J45.30 [facility] [id number] [place] [address] 40928- 2588 28 Jul, 2016 Mild persistent asthma without complication J45.30 [facility] [id number] [place] [address] 38754- 4305 Jul, Pain in left knee M25.562 [facility] [id number] [place] [address] 29963- 9836 Jun, [facility] [id number] [place] [address] 97735 -9007 Jun, [facility] [id number] [place] [address] 99243- 1624 Jun, Mild persistent asthma without complication J45.30 [facility] [id number] [place] [address] 72085- 0312 May, [facility] [id number] [place] [address] 89597- 9314 Apr, Restrictive lung disease J98.4 [facility] [id number] [place] [address] 91630- 4847 Apr, [facility] [id number] [place] [address] 90429- 5218 Apr, Mild persistent asthma without complication J45.30 [facility] [id number] [address] Mar, Sore throat J02.9 and Post-nasal drainage R09.82 [facility] [id number] [address]- 1763 Mar, [facility] [id number] [place] [address] 65056- 0716 Feb, [facility] [id number] [place] [address] 01051- 1178 Feb, Mild persistent asthma without complication J45.30 [facility] [id number] [place] [address] 73070- 8182 Feb, Arthralgia, unspecified joint M25.50 [facility] [id number] [place] [address] 60541- 5851 Feb, Edema, unspecified type R60.9 ; Arthralgia, unspecified joint M25.50 ; Mild persistent asthma without complication J45.30 ; Essential hypertension I10 ; Gastroesophageal reflux disease without esophagitis K21.9 and Major depressive disorder with single episode, remission status unspecified F32.9 [facility] [id number] [address]- 3645 Jan, Edema, unspecified type R60.9 ; Essential hypertension I10 ; Mild persistent asthma without complication J45.30 ; Gastroesophageal reflux disease with esophagitis K21.0 ; Arthralgia, unspecified joint M25.50 and Major depressive disorder with single episode, remission status unspecified F32.9 [facility] [id number] [place] [address] 36407- 3978 Jan, [facility] [id number] [place] [address] 82841- 6726 Dec, [facility] [id number] [place] [address] 59369- 5223 Dec, [facility] [id number] [address]- 7814 Dec, [facility] [id number] [address]- 2646 Nov, Bilateral edema of lower extremity R60.0 [facility] [id number] [address]- 0336 Nov, Bilateral edema of lower extremity R60.0 [facility] [id number] [address] -1431 Nov, [facility] [id number] [place] [address] 70645- 8530 Nov, [facility] [id number] [address]- 4536 October, [facility] [id number] [place] [address] 43869- 4496 Sep, [facility] [id number] [address] 2541 Aug, Acute sinusitis J01.90 [facility] [id number], [place] [address]- 6806 Aug, [facility] [id number] [address]- 9502 Aug, [facility] [id number], [place] [address] 2546 Jul, [facility] [id number] [address] 2546 Jul, Pharyngitis J02.9 [facility] [id number] [address]- 2546 05 Jul, 2015 [facility] [id number] [address]- 2546 Jun, Pain in left knee M25.562 [facility] [id number] [place] [address] 49409- 3636 Jun, [facility] [id number] [place] [address] 68524 -6516 May, Upper respiratory symptom R09.89 [facility] [id number] [place] [address] 63250- 9181 May, [facility] [id number] [place] [address] 17587- 7920 Apr, Costochondritis M94.0 and Knee pain, left M25.562 [facility] [id number] [place] [address] 20982- 5653 Apr, [facility] [id number] [place] [address] 04837- 4541 Mar, Eustachian tube dysfunction, left H69.82 [facility] [id number] [place] [address] 11398- 0463 Mar, [facility] [id number] [place] [address] 98093- 5028 Mar, [facility] [id number] [place] [address] 65031- 0942 Mar, [facility] [id number] [place] [address] 08070- 9321 Feb, [facility] [id number] [place] [address] 49792- 0916 Feb, [facility] [id number] [place] [address] 10741- 8928 Feb, [facility] [id number] [place] [address] 89387- 4558 Jan, Asthma 493.90 [facility] [id number] [place] [address] 96193- 9224 Dec, [facility] [id number] [place] [address] 67526- 7746 Dec, [facility] [id number], [place] [address]- 2220 Dec, [facility] [id number], [place] [address]- 1386 Dec, [facility] [id number] [address]- 5436 Dec, Asthma, unspecified, unspecified status 493.90 [facility] [id number] [address]- 8275 Nov, [facility] [id number] [address]- 0293 Nov, Asthma, unspecified, unspecified status 493.90 [facility] [id number], [place] [address]- 0296 October, Asthma, unspecified, unspecified status 493.90 [facility] [id number], [place] [address]- 5736 October, [facility] [id number] 2418 October, Contact dermatitis 692.9 and Candidiasis of skin 112.3 [facility] [id number], [place] [address]- 5558 Sep, [facility] [id number] [address]- 5755 Sep, [facility] [id number], [place] [address]- 4326 Aug, [facility] [id number], [place] [address]- 4056 Aug, [facility] [id number] [address]- 6886 Aug, [facility] [id number], [place] [address]- 4342 Aug, [facility] [place] [facility] [address] [id number] [place] [address]- 3316 Jul, [facility] [place] [facility] [address] [id number] [place] [address]- 6516 Jul, [facility] [place] [facility] [address] [facility] [id number] [place] [address]- 4953 Jun, [facility] [place] [facility] [address] [id number] [place] [address]- 1491 Jun, [facility] [place] [facility] [address] [id number] [place] [address]- 0265 May, [facility] [place] [facility] [address] [id number] [place] [address]- 1055 May, [facility] [place] [facility] [address] [id number] [place] [address]- 4115 May, [facility] [place] [facility] [address] [id number] [place] [address]- 0011 May, [facility] [place] [facility] [address] [id number] [place] [address]- 1769 May, [facility] [place] [facility] [address] [id number] [place] [address]- 6712 May, [facility] [place] [facility] [address] [id number] [place] [address]- 6951 Apr, [facility] [place] [facility] [address] [id number] [place] [address]- 2020 Apr, [facility] [place] [facility] [address] [id number] [place] [address]- 6037 Feb, [facility] [place] [facility] [address] [id number] [place] [address]- 3747 15 Feb, 2014 [facility] [place] [facility] [address] [id number] [place] [address]- 3647 Feb, [facility] [place] [facility] [address] [id number] [place] [address]- 1464 Feb, [facility] [place] [facility] [address] [id number] [place] [address]- 3042 Feb, [facility] [place] [facility] [address] [id number] [place] [address]- 5598 Feb, [facility] [place] [facility] [address] [id number] [place] [address]- 2386 Jan, [facility] [place] [facility] [address] [id number] [place] [address]- 6439 Jan, [facility] [place] [facility] [address] [id number] [place] [address]- 5816 Jan, [facility] [place] [facility] [address] [id number] [place] [address]- 4156 Jan, [facility] [place] [facility] [address] [id number] [place] [address]- 1522 Jan, [facility] [place] [facility] [address] [id number] [place] [address]- 0926 Jan, [facility] [place] [facility] [address] [id number] [place] [address]- 4490 Dec, [facility] [place] [facility] [address] [id number] [place] [address]- 2727 Dec, [facility] [place] [facility] [address] [id number] [place] [address]- 4659 Nov, [facility] [place] [facility] [address] [id number] [place] [address]- 4507 Nov, [facility] [place] [facility] [address] [id number] [place] [address]- 0302 Nov, [facility] [place] [facility] [address] [id number] [place] [address]- 0665 Nov, [facility] [place] [facility] [address] [id number] [place] [address]- 7864 Nov, [facility] [place] [facility] [address] [id number] [place] [address]- 6409 Nov, [facility] [place] [facility] [address] [id number] [place] [address]- 4613 Nov, [facility] [place] [facility] [address] [id number] [place] [address]- 8873 Nov, [facility] [place] [facility] [address] [id number] [place] [address]- 0105 Nov, [facility] [place] [facility] [address] [id number] [place] [address]- 3326 Nov, [facility] [place] [facility] [address] [id number] [place] [address]- 6648 Nov, [facility] [place] [facility] [address] [id number] [place] [address]- 6819 Nov, [facility] [place] [facility] [address] [id number] [place] [address]- 4281 Nov, [facility] [place] [facility] [address] [id number] [place] [address]- 8366 October, [facility] [place] [facility] [address] [id number] [place] [address]- 1343 October, [facility] [place] [facility] [address] [id number] [place] [address]- 3794 October, [facility] [place] [facility] [address] [id number] [place] [address]- 3369 October, [facility] [place] [facility] [address] [id number] [place] [address]- 2991 Sep, [facility] [place] [facility] [address] [id number] [place] [address]- 2027 Sep, [facility] [place] [facility] [address] [id number] [place] [address]- 2206 Sep, [facility] [place] [facility] [address] [id number], [place] [address]- 3862 Sep, [facility] [place] [facility] [address] [id number] [place] [address]- 1256 Aug, [facility] [place] [facility] [address] [id number] 2579 Aug, [facility] [place] [facility] [address] [facility] [id number] [place] [address]- 4142 Jul, [facility] [place] [facility] [address] [id number] [place] [address]- 4591 Jul, [facility] [place] [facility] [address] [facility] [id number] [place] [address]- 8547 Jun, [facility] [place] [facility] [address] [id number] [place] [address]- 3673 Jun, [facility] [place] [facility] [address] [facility] [id number], [place] [address]- 4560 Mar, [facility] [place] [facility] [address] [id number] [place] [address]- 5930 Mar, [facility] [place] [facility] [address] [facility] [id number] [place] [address]- 1136 Mar, [facility] [place] [facility] [address] [facility] [id number] [place] [address]- 9425 Mar, [facility] [place] [facility] [address] [facility] [id number], [place] [address]- 6041 Mar, [facility] [place] [facility] [address] [id number], [place] [address]- 0055 Feb, [facility] [place] [facility] [address] [id number], [place] [address]- 9832 Feb, [facility] [place] [facility] [address] [facility] [id number], [place] [address]- 8185 Dec, [facility] [place] [facility] [address] [facility] [id number], [place] [address]- 0585 Nov, [facility] [place] [facility] [address] [id number] [place] [address]- 4136 October, [facility] [place] [facility] [address] [id number] [place] [address]- 6632 Sep, [facility] [place] [facility] [address] [id number] [place] [address]- 2546 Sep, [facility] [place] [facility] [address] [id number] [place] [address]- 9217 Aug, [facility] [place] [facility] [address] [id number] [place] [address]- 0911 Aug, [facility] [place] [facility] [address] [id number] [place] [address]- 4813 Aug, [facility] [place] [facility] [address] [id number] [place] [address]- 8119 Aug, [facility] [place] [facility] [address] [id number] [place] [address]- 4281 Jun, [facility] [place] [facility] [address] [id number] [place] [address]- 4834 Jun, [facility] [place] [facility] [address] [id number] [place] [address] Jun, [facility] [place] [facility] [address] [id number] [place] [address] May, [facility] [place] [facility] [address] [id number] [place] [address] May, [facility] [place] [facility] [address] [id number] [place] [address] Apr, [facility] [place] [facility] [address] [id number] [place] [address] Apr, [facility] [place] [facility] [address] [id number] [place] [address] Apr, [facility] [place] [facility] [address] [id number] [place] [address] Apr, [facility] [place] [facility] [address] [id number] [place] [address] Apr, [facility] [place] [facility] [address] [id number] [place] [address] Apr, [facility] [place] [facility] [address] [id number] [place] [address] Apr, [facility] [place] [facility] [address] [id number] [place] [address] Mar, [facility] [place] [facility] [address] [id number] [place] [address] Mar, [facility] [place] [facility] [address] [id number] [place] [address] 18 Feb, 2012 [facility] [place] [facility] [address] [id number] [place] [address] 17 Feb, 2012 [facility] [place] [facility] [address] [id number] [place] [address] 13 Feb, 2012 [facility] [place] [facility] [address] [id number] [place] [address] 15 Jan, 2012 [facility] [place] [facility] [address] [id number] [place] [address] Jan, [facility] [place] [facility] [address] [id number], [place] [address] Jan, [facility] [place] [facility] [address] [id number], [place] [address] Jan, [facility] [place] [facility] [address] [id number] [place] [address] Dec, [facility] [place] [facility] [address] [id number] [place] [address] Dec, [facility] [place] [facility] [address] [id number] [place] [address] Dec, [facility] [place] [facility] [address] [id number] [place] [address] 17 Dec, 2011 [facility] [place] [facility] [address] [id number] [place] [address] 10 Dec, 2011 [facility] [place] [facility] [address] [id number] [place] [address] 14 Nov, 2011 [facility] [place] [facility] [address] [id number] [place] [address] 14 Nov, 2011 [facility] [place] [facility] [address] [id number] [place] [address] Nov, [facility] [place] [facility] [address] [id number] [place] [address] Nov, [facility] [place] [facility] [address] [id number] [place] [address] October, [facility] [address] [id number] [place] [address] October, [facility] [place] [facility] [address] [id number] [place] [address] October, [facility] [place] [facility] [address] [id number] [place] [address] October, [facility] [place] [facility] [address] [id number] [place] [address] October, [facility] [place] [facility] [address] [id number] [place] [address] Sep, [facility] [place] [facility] [address] [id number] [place] [address] 20 Sep, 2011 [facility] [place] [facility] [address] [id number] [place] [address] Sep, [facility] [place] [facility] [address] [id number] [place] [address] Sep, [facility] [place] [facility] [address] [id number] [place] [address] Sep, [facility] [place] [facility] [address] [id number] [place] [address] 29 Aug, 2011 [facility] [address] [id number] [place] [address] 28 Aug, 2011 [facility] [place] [facility] [address] [id number] [place] [address] 27 Aug, 2011 [facility] [address] [id number] [place] [address] 26 Aug, 2011 [facility] [address] [id number] [place] [address] 23 Aug, 2011 [facility] [address] [id number] [place] [address] 20 Aug, 2011 [facility] [address] [id number] [place] [address] 19 Aug, 2011 [facility] [address] [id number] [place] [address] 17 Aug, 2011 [facility] [address] [id number] [place] [address] 18 Jun, 2011 [facility] [address] [id number] [place] [address] Jun, [facility] [address] [id number] [place] [address] 11 Jun, 2011 [facility] [address] [id number] [place] [address] Jun, [facility] [place] [facility] [address] [id number] [place] [address] 06 Jun, 2011 [facility] [place] [facility] [address] [id number] [place] [address] 20 May, 2011 [facility] [place] [facility] [address] [id number] [place] [address] 29 Apr, 2011 [facility] [address] [id number], [place] [address] October, [facility] [id number] [place] [address] May, [facility] [id number], [place] [address] May, [facility] [id number], [place] [address] Apr, [facility] [id number] [place] [address] Jan, [facility] [id number], [place] [address] Dec, [facility] [id number], [place] [address] Sep, [facility] [id number], [place] [address] Sep, [facility] [id number], [place] [address] Jul, [facility] [id number], [place] [address] May, [facility] [id number], [place] [address] Jan, IMMUNIZATIONS No Known Immunizations SOCIAL HISTORY [...]
--- OUTSIDE RECORDS SUMMARY | 2018-05-04 07:33 | XMS REPORT ---
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 Name Role Phone RADHA CARIAS Unavailable PROBLEMS Type Condition ICD9-CM Code GEN09-XJ Code Onset Dates Condition Status SNOMED Code Problem Mild persistent asthma without complication J45.30 Active 588100159 Problem Edema, unspecified type R60.9 Active 633247323 Problem Gastroesophageal reflux disease with esophagitis K21.0 Active 467631754 Problem Essential hypertension I10 Active 55815517 Problem Moderate persistent asthma with exacerbation J45.41 Active 015437289 Problem Other chronic pain G89.29 Active 42282102 Problem Esophageal abnormality K22.9 Active 24799804 Problem Hammer toe of right foot M20.41 Active 340605932 Problem Abnormal EKG R94.31 Active 408154032 Problem Right upper quadrant abdominal pain R10.11 Active 005023841 ALLERGIES Substance Reaction Event Type Date Status Naprosyn itching Drug Allergy Aug, Active Micardis Unknown Drug Allergy Aug, Active Hydrocodone Bitartrate itching Drug Allergy Aug, Active Celebrex swelling Drug Allergy Aug, Active Doxycycline scalp rash Drug Allergy Aug, Active ENCOUNTERS Encounter Location Date Diagnosis [place] [id number] [place] [address] 65923- 9910 Dec, BMI 40.0-44.9, adult Z68.41 ; Other chronic pain G89.29 and Pain in left hip M25.552 [place] [address] [place] [address] 75439- 8689 Nov, Abscess L02.91 [place] [address] [address] 2799 Nov, Moderate persistent asthma with exacerbation J45.41 [place] [address] [place] [id number] [place] [address] 29400- 3147 Nov, Low back pain M54.5 and Other chronic pain G89.29 [place] [address] [place] [id number] [place] [address] 22040- 6813 October, Abscess L02.91 [place] [address] [place] [id number] [place] [address] 81969- 0525 October, Cutaneous abscess of back excluding buttocks L02.212 and BMI 40.0-44.9, adult Z68.41 [place] [address] [place] [id number] [place] [address] 91630- 3164 October, [place] [address] [place] [id number] [place] [address] 65876- 4434 October, [place] [address] [place] [id number] [place] [address] 38016- 6781 Sep, [place] [address] [place] [id number] [place] [address] 52732- 1767 Sep, Abscess L02.91 [place] [address] [place] [id number] [place] [address] 57586- 2058 Sep, Right upper quadrant abdominal pain R10.11 ; Mild persistent asthma without complication J45.30 and BMI 40.0-44.9, adult Z68.41 [place] [address] [place] [id number] [place] [address] 16510- 0992 Aug, Abscess L02.91 and BMI 40.0-44.9, adult Z68.41 [place] [address] [place] [id number] [place] [address] 75371- 0840 Aug, Edema, unspecified type R60.9 [place] [address] [place] [id number] [place] [address] 80442- 2127 Aug, Right upper quadrant abdominal pain R10.11 ; Abnormal EKG R94.31 ; Esophageal abnormality K22.9 and BMI 40.0-44.9, adult Z68.41 [place] [address] [place] [id number] [place] [address] 96682- 2483 23 Aug, 2017 Hammer toe of right foot M20.41 and Onychomycosis B35.1 [facility] [address] [place] [id number] [place] [address] 23352 -9796 19 Aug, 2017 Myalgia M79.1 [place] [address] 81075- 9068 19 Aug, 2017 [place] [address] [place] [id number] [place] [address] 36539- 1642 Aug, Annual physical exam Z00.00 ; BMI 40.0-44.9, adult Z68.41 ; Mild persistent asthma without complication J45.30 ; Gastroesophageal reflux disease with esophagitis K21.0 ; Acute right-sided thoracic back pain M54.6 ; Trouble breathing R06.89 and Neck pain M54.2 [place] [address] 60054- 3353 Jul, Mild persistent asthma without complication J45.30 [place] [address] 41254- 6395 Jul, Edema, unspecified type R60.9 [place] [address] 95534- 9411 Jun, Edema, unspecified type R60.9 [place] [address] [place] [id number] [place] [address] 38736- 2171 Jun, Moderate persistent asthma with exacerbation J45.41 [place] [address] [place] [id number] [place] [address] 66697- 4960 May, Edema, unspecified type R60.9 [place] [address] 47769- 1646 May, Moderate persistent asthma with exacerbation J45.41 and Hammer toe of right foot M20.41 [place] [address] [place] [address]- 5257 May, Moderate persistent asthma without complication J45.40 ; Dysfunction of left eustachian tube H69.82 and BMI 45.0-49.9, adult Z68.42 [facility] [address] [place] [id number] [place] [address] 88419- 1338 Apr, Edema, unspecified type R60.9 [place] [address] 86387- 8652 Mar, Edema, unspecified type R60.9 [place] [address] [place] [id number] [place] [address] 42308- 6195 Feb, Edema, unspecified type R60.9 [place] [address] [place] [id number] [place] [address] 40334- 3416 Jan, Edema, unspecified type R60.9 [place] [address] [place] [id number] [place] [address] 18811- 2307 Jan, Mild persistent asthma without complication J45.30 [place] [address] [place] [id number] [place] [address] 69654- 7622 Dec, Edema, unspecified type R60.9 [place] [address] [place] [id number] [place] [address] 85138- 6119 Nov, Edema, unspecified type R60.9 and Essential hypertension I10 [place] [address] [place] [id number] [place] [address] 16243- 3879 October, Pain in left knee M25.562 [place] [address] [place] [id number] [place] [address] 04546- 4728 October, Pain in left knee M25.562 [place] [address] [place] [id number] [place] [address] 35379- 8062 October, [place] [address] [place] [id number] [place] [address] 55798- 1730 Sep, [place] [address] [place] [id number] [place] [address] 00357- 3305 17 Sep, 2016 Mild persistent asthma without complication J45.30 [facility] [address] [place] [id number] [place] [address] 03159- 4230 Sep, Pain in left knee M25.562 [facility] [address] [place] [id number] [place] [address] 25938- 8465 23 Aug, 2016 Acute nasopharyngitis J00 and Seasonal allergic rhinitis due to pollen J30.1 [facility] [address] [place] [id number] [place] [address] 04932- 6370 16 Aug, 2016 [facility] [address] 57972- 3324 Aug, Arthralgia, unspecified joint M25.50 and Pain in left knee M25.562 [place] [address] [place] [id number] [place] [address] 49287- 8902 Aug, Mild persistent asthma without complication J45.30 [facility] [address] [place] [id number] [place] [address] 35706- 7609 Jul, Mild persistent asthma without complication J45.30 [facility] [address] [place] [id number] [place] [address] 42530- 1210 13 Jul, 2016 Pain in left knee M25.562 [facility] [address] [place] [id number] [place] [address] 80949- 3355 Jun, [facility] [address] [place] [address] 42277 -0654 Jun, [facility] [address] [place] [id number] [place] [address] 84781- 1969 Jun, Mild persistent asthma without complication J45.30 [facility] [address] [place] [id number] [place] [address] 69786- 9401 May, [facility] [address] [place] [id number] [place] [address] 31161- 4086 Apr, Restrictive lung disease J98.4 [facility] [address] [address]- 3761 Apr, [place] [address] [place] [address] 64551- 6906 Apr, Mild persistent asthma without complication J45.30 [facility] [address] [place] [address] 10535 -9303 Mar, Sore throat J02.9 and Post-nasal drainage R09.82 [place] [address] [place] [address] 25352- 2503 Mar, [place] [address] [place] [id number] [place] [address] 46475- 8639 Feb, [place] [address] [place] [id number] [place] [address] 41760- 4693 Feb, Mild persistent asthma without complication J45.30 [facility] [address] [address]- 2855 Feb, Arthralgia, unspecified joint M25.50 [place] [address] [place] [address] 28596- 4449 Feb, Edema, unspecified type R60.9 ; Arthralgia, unspecified joint M25.50 ; Mild persistent asthma without complication J45.30 ; Essential hypertension I10 ; Gastroesophageal reflux disease without esophagitis K21.9 and Major depressive disorder with single episode, remission status unspecified F32.9 [place] [address] [place] [address] 67417- 8869 Jan, Edema, unspecified type R60.9 ; Essential hypertension I10 ; Mild persistent asthma without complication J45.30 ; Gastroesophageal reflux disease with esophagitis K21.0 ; Arthralgia, unspecified joint M25.50 and Major depressive disorder with single episode, remission status unspecified F32.9 [place] [address] [place] [address] 27060- 2864 Jan, [facility] [address] [facility] [id number] [place] [address]- 6020 Dec, [facility] [address] [facility] [id number] [place] 2606 Dec, [facility] [address] [facility] [id number] [place] [address]- 4825 Dec, [facility] [address] [facility] [id number] [place] [address]- 3534 Nov, Bilateral edema of lower extremity R60.0 [facility] [address] [facility] [id number] [place] [address]- 9099 Nov, Bilateral edema of lower extremity R60.0 [facility] [address] [facility] [id number] [place] [address] -1477 Nov, [facility] [address] [place] [address]- 0580 Nov, [facility] [address] [facility] [id number] [place] [address]- 8201 October, [facility] [address] [place] [address]- 1573 Sep, [facility] [address] [place] [id number] [address]- 7629 Aug, Acute sinusitis J01.90 [facility] [address], [place] [address]- 6824 Aug, [facility] [address] [facility] [id number] 3094 Aug, [facility] [address]- 9112 Jul, [facility] [address] [facility] [id number] [address]- 8768 Jul, Pharyngitis J02.9 [facility] [address] [address]- 2366 Jul, [facility] [address] [place] [id number] [place] [address] 62632- 7493 Jun, Pain in left knee M25.562 [facility] [address] [place] [id number] [place] [address] 11033- 2805 Jun, [facility] [address] [place] [id number] [place] [address] 75044 -6405 May, Upper respiratory symptom R09.89 [facility] [address] [place] [id number] [place] [address] 66098- 5927 May, [facility] [address] [place] [id number] [place] [address] 08499- 7180 Apr, Costochondritis M94.0 and Knee pain, left M25.562 [facility] [address] [place] [id number] [place] [address] 88707- 8586 Apr, [facility] [address] [place] [id number] [place] [address] 78211- 4185 Mar, Eustachian tube dysfunction, left H69.82 [facility] [address] [place] [id number] [place] [address] 50647- 1501 Mar, [facility] [address] [place] [id number] [place] [address] 33369- 9337 Mar, [facility] [address] [place] [id number] [place] [address] 10423- 1247 Mar, [facility] [address] [place] [id number] [place] [address] 50390- 8576 Feb, [facility] [address] [place] [id number] [place] [address] 55351- 0933 Feb, [facility] [address] [place] [address] 75197- 7907 Feb, [facility] [address] [place] [id number] [place] [address] 35536- 3218 Jan, Asthma 493.90 [facility] [address], [place] [address]- 3151 Dec, [facility] [address], [place] [address]- 9840 Dec, [facility] [address], [place] [address]- 9904 Dec, [facility] [address] [place] [address] 86400- 4377 Dec, [facility] [address] [place] [address] 76422- 6558 Dec, Asthma, unspecified, unspecified status 493.90 [facility] [address] [address]- 0390 Nov, [facility] [address] [place] [id number] [place] [address] 04182- 4012 Nov, Asthma, unspecified, unspecified status 493.90 [facility] [address] 1672 October, Asthma, unspecified, unspecified status 493.90 [facility] [address] [address]- 7789 October, [facility] [address] 3179 October, Contact dermatitis 692.9 and Candidiasis of skin 112.3 [facility] [address], [place] [address]- 1420 Sep, [facility] [address]- 5804 Sep, [facility] [address] [place] [id number] [address]- 0545 Aug, [facility] [address], [place] [address]- 1513 Aug, [facility] [place] [facility] [address] [id number] [place] [address]- 3398 Aug, [facility] [place] [facility] [address] [id number] [place] 9207 Aug, [facility] [place] [facility] [address] [id number] [place] [address]- 5709 Jul, [facility] [place] [facility] [address] [id number] [place] [address]- 8006 Jul, [facility] [place] [facility] [address] [id number] [place] [address]- 5235 Jun, [facility] [place] [facility] [address] [id number] [place] [address]- 5591 Jun, [facility] [place] [facility] [address] [facility] [id number] [place] [address]- 7122 May, [facility] [place] [facility] [address] [id number] [place] [address]- 7822 May, [facility] [place] [facility] [address] [facility] [id number] [place] [address]- 5253 May, [facility] [place] [facility] [address] [facility] [id number] [place] [address]- 7134 May, [facility] [place] [facility] [address] [facility] [id number] [place] [address]- 5972 May, [facility] [place] [facility] [address] [id number] [place] [address]- 6793 May, [facility] [place] [facility] [address] [id number] [place] [address]- 6973 Apr, [facility] [place] [facility] [address] [id number] [place] [address]- 3036 Apr, [facility] [place] [facility] [address] [facility] [id number] [place] [address]- 7990 15 Feb, 2014 [facility] [place] [facility] [address] [id number] [place] [address]- 5992 15 Feb, 2013 [facility] [place] [facility] [address] [id number] [place] [address]- 4623 10 Feb, 2014 [facility] [place] [facility] [address] [id number] [place] [address]- 2876 10 Feb, 2014 [facility] [place] [facility] [address] [id number] [place] [address]- 6248 05 Feb, 2014 [facility] [place] [facility] [address] [id number] [place] [address]- 6054 05 Feb, 2014 [facility] [place] [facility] [address] [id number] [place] [address]- 1209 Jan, [facility] [place] [facility] [address] [id number] [place] [address]- 1837 Jan, [facility] [place] [facility] [address] [id number] [place] [address]- 7979 Jan, [facility] [place] [facility] [address] [id number] [place] [address]- 8436 Jan, [facility] [place] [facility] [address] [id number] [place] [address]- 9161 Jan, [facility] [place] [facility] [address] [id number] [place] [address]- 1602 Jan, [facility] [place] [facility] [address] [id number] [place] [address]- 0777 Dec, [facility] [place] [facility] [address] [id number] [place] [address]- 3819 Dec, [facility] [place] [facility] [address] [id number] [place] [address]- 6958 Nov, [facility] [place] [facility] [address] [id number] [place] [address]- 9172 Nov, [facility] [place] [facility] [address] [id number] [place] [address]- 9164 Nov, [facility] [place] [facility] [address] [id number] [place] [address]- 9684 Nov, [facility] [place] [facility] [address] [id number] [place] [address]- 7358 Nov, [facility] [place] [facility] [address] [id number] [place] [address]- 1842 Nov, [facility] [place] [facility] [address] [id number] [place] [address]- 6612 Nov, [facility] [place] [facility] [address] [id number] [place] [address]- 3556 Nov, [facility] [place] [facility] [address] [id number] [place] [address]- 2667 Nov, [facility] [place] [facility] [address] [id number] [place] [address]- 3940 Nov, [facility] [place] [facility] [address] [id number] [place] [address]- 6967 Nov, [facility] [place] [facility] [address] [id number] [place] [address]- 4182 Nov, [facility] [place] [facility] [address] [id number] [place] [address]- 4368 Nov, [facility] [place] [facility] [address] [id number] [place] [address]- 9049 October, [facility] [place] [facility] [address] [id number] [address]- 7206 October, [facility] [place] [facility] [address] [id number] [place] [address]- 9216 October, [facility] [place] [facility] [address] [id number] [place] [address]- 5270 October, [facility] [place] [facility] [address] [id number] [place] [address]- 6885 Sep, [facility] [place] [facility] [address] [id number] [place] [address]- 7358 Sep, [facility] [place] [facility] [address] [id number] [place] [address]- 8151 Sep, [facility] [place] [facility] [address] [id number] [place] [address]- 2409 Sep, [facility] [place] [facility] [address] [id number] [place] [address]- 3172 Aug, [facility] [place] [facility] [address] [id number] [place] [address]- 1610 Aug, [facility] [place] [facility] [address] [id number] [place] [address]- 4431 Jul, [facility] [place] [facility] [address] [id number] [place] [address]- 1707 Jul, [facility] [place] [facility] [address] [id number] [place] [address]- 1231 Jun, [facility] [place] [facility] [address] [id number] [place] [address]- 1301 Jun, [facility] [place] [facility] [address] [id number] [place] [address]- 6712 Mar, [facility] [place] [facility] [address] [id number] [place] [address]- 0751 Mar, [facility] [place] [facility] [address] [id number] [place] [address]- 0095 Mar, [facility] [place] [facility] [address] [id number] [place] [address]- 0702 Mar, [facility] [place] [facility] [address] [id number] [place] [address]- 0700 Mar, [facility] [place] [facility] [address] [id number] [place] 4911 Feb, [facility] [place] [facility] [address] [id number] [place] [address] Feb, [facility] [place] [facility] [address] [id number] [place] [address] Dec, [facility] [address] [id number] [place] [address] Nov, [facility] [address] [id number] [place] [address] October, [facility] [address] [id number] [place] [address] Sep, [facility] [address] [id number] [place] [address] Sep, [facility] [address] [id number] [place] [address] Aug, [facility] [address] [id number] [place] [address] Aug, [facility] [address] [id number] [place] [address] Aug, [facility] [address] [id number] [place] [address] Aug, [facility] [address] [id number] [place] [address] Jun, [facility] [address] [id number] [place] [address] Jun, [facility] [address] [id number] [place] [address] Jun, [facility] [address] [id number] [place] [address] May, [facility] [address] [id number] [place] [address] May, [facility] [address] [id number] [place] [address] Apr, [facility] [address] [id number] [place] [address] Apr, [facility] [address] [id number] [place] [address] Apr, [facility] [place] [facility] [address] [id number] [place] [address] Apr, [facility] [facility] [address] [id number] [place] [address] Apr, [facility] [place] [facility] [address] [id number] [place] [address] Apr, [facility] [address] [id number] [place] [address] Apr, [facility] [place] [address] [id number] [place] [address] Mar, [facility] [place] [facility] [address] [id number] [place] [address] Mar, [facility] [address] [id number] [place] [address] 18 Feb, 2012 [facility] [address] [id number] [place] [address] 17 Feb, 2012 [facility] [address] [id number] [place] [address] 13 Feb, 2012 [facility] [address] [id number] [place] [address] 15 Jan, 2012 [facility] [address] [id number] [place] [address] 14 Jan, 2012 [facility] [address] [id number] [place] [address] Jan, [facility] [address] [id number] [place] [address] Jan, [facility] [place] [facility] [address] [id number] [place] [address] Dec, [facility] [place] [facility] [address] [id number] [place] [address] 20 Dec, 2011 [facility] [address] [id number] [place] [address] 18 Dec, 2011 [facility] [address] [id number] [place] [address] 17 Dec, 2011 [facility] [address] [id number] [place] [address] 10 Dec, 2011 [facility] [address] [address] [id number] [place] [address] 14 Nov, 2011 [facility] [address] [id number] [place] [address] 14 Nov, 2011 [facility] [address] [id number] [place] [address] Nov, [facility] [address] [id number] [place] [address] Nov, [facility] [address] [id number] [place] [address] October, [facility] [address] [id number] [place] [address] October, [facility] [address] [id number] [place] [address] October, [facility] [address] [id number] [place] [address] October, [facility] [address] [id number] [place] [address] October, [facility] [place] [facility] [address] [id number] [place] [address] Sep, [facility] [place] [facility] [address] [id number] [place] [address] Sep, [facility] [place] [facility] [address] [id number] [place] [address] Sep, [facility] [place] [facility] [address] [id number] [place] [address] 11 Sep, 2011 [facility] [place] [facility] [address] [id number] [place] [address] 03 Sep, 2011 [facility] [place] [facility] [address] [id number] [place] [address] 29 Aug, 2011 [facility] [place] [facility] [address] [id number] [place] [address] 28 Aug, 2011 [facility] [place] [facility] [address] [id number] [place] [address] 27 Aug, 2011 [facility] [place] [facility] [address] [id number] [place] [address] 26 Aug, 2011 [facility] [place] [facility] [address] [id number] [place] [address] 23 Aug, 2011 [facility] [place] [facility] [address] [id number] [place] [address] 20 Aug, 2011 [facility] [place] [facility] [address] [id number] [place] [address] 19 Aug, 2011 [facility] [place] [facility] [address] [id number] [place] [address] 17 Aug, 2011 [facility] [place] [facility] [address] [id number] [place] [address]651 18 Jun, 2011 [facility] [place] [facility] [address] [id number] [place] [address] Jun, [facility] [place] [facility] [address] [id number] [place] [address] 11 Jun, 2011 [facility] [place] [facility] [address] [id number] [place] [address] 10 Jun, 2011 [facility] [place] [facility] [address] [id number] [place] [address] 06 Jun, 2011 [facility] [place] [facility] [id number] [address] May, [facility] [address] [address] Apr, [facility] [address], [place] [address] October, [facility] [id number], [place] [address] May, [facility] [id number] [place] [address] May, [facility] [id number] [place] [address] Apr, [facility] [address], [place] [address] Jan, [facility] [id number] [place] [address] Dec, [facility] [id number], [place] [address] Sep, [facility] [id number], [place] [address] Sep, [facility] [id number], [place] [address] Jul, [facility] [id number] [place] [address] May, [facility] [address], [place] [address] Jan, IMMUNIZATIONS No Known Immunizations SOCIAL HISTORY Never Assessed REASON FOR VISIT rt Side pain going to the middle back since last month-- shanelle nunes PLAN OF CARE Activity Details Follow Up 4 Weeks, prn Reason:f/u and labs VITAL SIGNS Height 64 in 2017-08-28 Weight 253.0 lbs 2017-08-28 Temperature 97.0 degrees Fahrenheit 2017-08-28 Heart Rate 78 bpm 2017-08-28 Respiratory Rate 2017-08-28 BMI 43.42 kg/m2 2017-08-28 Blood pressure systolic 140 mmHg 2017-08-28 Blood pressure diastolic 86 mmHg 2017-08-28 MEDICATIONS Medication Instructions Dosage Frequency Start Date End Date Duration Status Stephan HFA 108 (90 Base) MCG/ACT Inhalation every 4 hrs 2 puffs as needed 4h Feb, Active Wellbutrin XL 150 MG Orally Once a day 1 tablet in the morning 24h Active Ibuprofen 800 MG Orally Three times a day 1 tablet 8h Active Lamisil 250 MG Orally Once a day 1 tablet 24h Aug, Sep, 30 days Active Omeprazole 20 MG TAKE ONE CAPSULE BY MOUTH ONCE DAILY 30 Active Cyclobenzaprine HCl 5 MG TAKE ONE TABLET BY MOUTH TWICE DAILY 30 Active Spiriva Respimat 1.25 MCG/ACT Inhalation Once a day 2 puffs 24h Aug, 90 days Active Advair Diskus 250-50 MCG/DOSE Inhalation Twice a day 1 puff 12h Nov, 60 days Active Hydrochlorothiazide 50 mg TAKE ONE TABLET BY MOUTH ONCE DAILY 30 Active Albuterol Sulfate (2.5 MG/3ML) 0.083% inhale 3 milliliters (2.5 mg) by nebulization route 4 times per day PRN for wheezing or cough Aug, Active Tramadol HCl 50 MG Orally 1 tablet 3 times a day as needed 1 tablet 28 days Active Losartan Potassium 25 MG TAKE ONE TABLET BY MOUTH ONCE DAILY 30 Active RESULTS No Results PROCEDURES Procedure Date Ordered Result Body Site EKG, TRACING (IN-HOUSE) 2017-08-28 N/A ELECTROCARDIOGRAM, TRACING August 28, 2017 INSTRUCTIONS MEDICATIONS ADMINISTERED No [...]
--- OUTSIDE RECORDS SUMMARY | 2018-05-04 07:34 | XMS REPORT ---
Author Author GALLO ABEBE [facility] IN [facility] Address [address] [place] [address] Care Team Providers Care Chaplain Name Role Phone GALLO ABEBE Unavailable PROBLEMS Type Condition ICD9-CM Code EEQ02-OA Code Onset Dates Condition Status SNOMED Code Problem Mild persistent asthma without complication J45.30 Active 369395578 Problem Edema, unspecified type R60.9 Active 722221158 Problem Gastroesophageal reflux disease with esophagitis K21.0 Active 277697584 Problem Essential hypertension I10 Active 98276795 Problem Moderate persistent asthma with exacerbation J45.41 Active 395244710 Problem Other chronic pain G89.29 Active 74562577 Problem Esophageal abnormality K22.9 Active 62939633 Problem Hammer toe of right foot M20.41 Active 385043520 Problem Abnormal EKG R94.31 Active 832162385 Problem Right upper quadrant abdominal pain R10.11 Active 321988656 ALLERGIES Substance Reaction Event Type Date Status Naprosyn itching Drug Allergy Aug, Active Micardis Unknown Drug Allergy Aug, Active Hydrocodone Bitartrate itching Drug Allergy Aug, Active Celebrex swelling Drug Allergy Aug, Active Doxycycline scalp rash Drug Allergy Aug, Active ENCOUNTERS Encounter Location Date Diagnosis [place] [id number] [place] [address] 27303- 6962 Dec, BMI 40.0-44.9, adult Z68.41 ; Other chronic pain G89.29 and Pain in left hip M25.552 [place] [id number] [place] [address] 21698- 8550 Nov, Abscess L02.91 [place] [address] [address] 0778 Nov, Moderate persistent asthma with exacerbation J45.41 [place] [address] [place] [id number] [place] [address] 14176- 6887 Nov, Low back pain M54.5 and Other chronic pain G89.29 [place] [address] [place] [id number] [place] [address] 33387- 3067 October, Abscess L02.91 [place] [address] 21591- 3931 October, Cutaneous abscess of back excluding buttocks L02.212 and BMI 40.0-44.9, adult Z68.41 [place] [address] 08141- 3448 October, [place] [address] 92146- 1878 October, [place] [address] [place] [id number] [place] [address] 59489- 6435 Sep, [place] [address] [place] [id number] [place] [address] 81583- 3698 Sep, Abscess L02.91 [place] [address] 53651- 5947 Sep, Right upper quadrant abdominal pain R10.11 ; Mild persistent asthma without complication J45.30 and BMI 40.0-44.9, adult Z68.41 [place] [address] [place] [id number] [place] [address] 25272- 3891 Aug, Abscess L02.91 and BMI 40.0-44.9, adult Z68.41 [place] [address] [place] [id number] [place] [address] 78809- 0871 Aug, Edema, unspecified type R60.9 [place] [address] [place] [id number] [place] [address] 75372- 0471 Aug, Right upper quadrant abdominal pain R10.11 ; Abnormal EKG R94.31 ; Esophageal abnormality K22.9 and BMI 40.0-44.9, adult Z68.41 [facility] [place] [id number] [place] [address] 87590- 7612 Aug, Hammer toe of right foot M20.41 and Onychomycosis B35.1 [facility] [address] [address] Aug, Myalgia M79.1 [place] [address] [place] [id number] [place] [address] 64278- 7972 Aug, [place] [address] [place] [id number] [place] [address] 68893- 4914 Aug, Annual physical exam Z00.00 ; BMI 40.0-44.9, adult Z68.41 ; Mild persistent asthma without complication J45.30 ; Gastroesophageal reflux disease with esophagitis K21.0 ; Acute right-sided thoracic back pain M54.6 ; Trouble breathing R06.89 and Neck pain M54.2 [place] [address] [place] [id number] [place] [address] 28924- 2668 Jul, Mild persistent asthma without complication J45.30 [place] [address] [place] [id number] [place] [address] 44590- 9795 Jul, Edema, unspecified type R60.9 [place] [address] [place] [id number] [place] [address] 89851- 1991 Jun, Edema, unspecified type R60.9 [place] [address] [place] [id number] [place] [address] 80254- 0207 Jun, Moderate persistent asthma with exacerbation J45.41 [place] [address] [place] [id number] [place] [address] 25776- 3655 May, Edema, unspecified type R60.9 [place] [address] [place] [id number] [place] [address] 66293- 2421 May, Moderate persistent asthma with exacerbation J45.41 and Hammer toe of right foot M20.41 [place] [address] [place] [id number] [place] [address] 19741- 9355 May, Moderate persistent asthma without complication J45.40 ; Dysfunction of left eustachian tube H69.82 and BMI 45.0-49.9, adult Z68.42 [place] [address] [place] [id number] [place] [address] 30036- 6318 Apr, Edema, unspecified type R60.9 [place] [address] [place] [id number] [place] [address] 12952- 3167 Mar, Edema, unspecified type R60.9 [place] [address] [place] [id number] [place] [address] 03073- 6288 Feb, Edema, unspecified type R60.9 [place] [address] [place] [id number] [place] [address] 81349- 3370 Jan, Edema, unspecified type R60.9 [place] [address] [place] [id number] [place] [address] 28763- 4756 Jan, Mild persistent asthma without complication J45.30 [place] [address] [place] [id number] [place] [address] 54014- 3515 Dec, Edema, unspecified type R60.9 [place] [address] [place] [id number] [place] [address] 18122- 6579 Nov, Edema, unspecified type R60.9 and Essential hypertension I10 [place] [address] [place] [id number] [place] [address] 22781- 5668 October, Pain in left knee M25.562 [place] [address] [place] [id number] [place] [address] 18136- 1841 October, Pain in left knee M25.562 [place] [address] [place] [id number] [place] [address] 89616- 0025 October, [place] [address] [place] [id number] [place] [address] 59396- 1895 Sep, [facility] [place] [address] [place] [address] 89797- 8832 17 Sep, 2016 Mild persistent asthma without complication J45.30 [facility] [place] [address] [place] [id number] [place] [address] 94857- 8457 Sep, Pain in left knee M25.562 [facility] [place] [address] [place] [id number] [place] [address] 91725- 1136 23 Aug, 2016 Acute nasopharyngitis J00 and Seasonal allergic rhinitis due to pollen J30.1 [facility] [place] [address] [place] [id number] [place] [address] 42524- 0487 16 Aug, 2016 [facility] [place] [address] [place] [id number] [place] [address] 24690- 6684 Aug, Arthralgia, unspecified joint M25.50 and Pain in left knee M25.562 [facility] [place] [address] [place] [id number] [place] [address] 31018- 9337 Aug, Mild persistent asthma without complication J45.30 [facility] [place] [address] [place] [id number] [place] [address] 06856- 9824 28 Jul, 2016 Mild persistent asthma without complication J45.30 [facility] [place] [address] [place] [id number] [place] [address] 44807- 5247 13 Jul, 2016 Pain in left knee M25.562 [facility] [place] [address] [place] [id number] [place] [address] 38619- 0209 Jun, [facility] [address] [place] [id number] [place] [address] 44827 -1227 Jun, [facility] [place] [address] [place] [id number] [place] [address] 34982- 4661 Jun, Mild persistent asthma without complication J45.30 [facility] [place] [address] [place] [id number] [place] [address] 04755- 6882 May, [facility] [place] [address] [place] [id number] [place] [address] 81860- 2683 Apr, Restrictive lung disease J98.4 [facility] [place] [address] [place] [id number] [place] [address] 41815- 3782 Apr, [place] [address] [place] [id number] [place] [address] 35411- 5234 Apr, Mild persistent asthma without complication J45.30 [facility] [address] [place] [id number] [place] [address] 04005 -7946 Mar, Sore throat J02.9 and Post-nasal drainage R09.82 [facility] [place] [address] [place] [id number] [place] [address] 02992- 0429 Mar, [place] [address] [place] [id number] [place] [address] 15664- 5160 Feb, [place] [address] [place] [id number] [place] [address] 11532- 3165 Feb, Mild persistent asthma without complication J45.30 [facility] [place] [address] [place] [id number] [place] [address] 47435- 9654 Feb, Arthralgia, unspecified joint M25.50 [place] [address] [place] [id number] [place] [address] 26385- 1761 Feb, Edema, unspecified type R60.9 ; Arthralgia, unspecified joint M25.50 ; Mild persistent asthma without complication J45.30 ; Essential hypertension I10 ; Gastroesophageal reflux disease without esophagitis K21.9 and Major depressive disorder with single episode, remission status unspecified F32.9 [facility] [place] [id number] [place] [address] 32496- 9181 Jan, Edema, unspecified type R60.9 ; Essential hypertension I10 ; Mild persistent asthma without complication J45.30 ; Gastroesophageal reflux disease with esophagitis K21.0 ; Arthralgia, unspecified joint M25.50 and Major depressive disorder with single episode, remission status unspecified F32.9 [place] [address] [place] [id number] [place] [address] 61954- 2416 Jan, [facility] [place] [address] [facility] [id number] [place] [address]- 6835 Dec, [facility] [place] [address] [address] 8099 Dec, [facility] [place] [address] [address]- 9722 Dec, [facility] [place] [address] [address]- 2056 Nov, Bilateral edema of lower extremity R60.0 [facility] [place] [address] [place] [address] 77712- 9758 Nov, Bilateral edema of lower extremity R60.0 [facility] [address] [address] -8188 Nov, [facility] [place] [address] [place] [address] [address]- 3183 Nov, [facility] [place] [address] [address]- 8551 October, [facility] [place] [address] [address]- 2920 Sep, [facility] [place] [address] [address]- 3825 Aug, Acute sinusitis J01.90 [facility] [place] [address] [address]- 2500 Aug, [facility] [place] [address] [place] [id number] [address]- 1803 Aug, [facility] [place] [address] [address]- 8658 Jul, [facility] [place] [address] [address]- 9373 Jul, Pharyngitis J02.9 [facility] [place] [address] [place] [address] [address]- 6320 Jul, [facility] [place] [address] [place] [id number] [place] [address] 46137- 2433 Jun, Pain in left knee M25.562 [facility] [place] [address] [place] [id number] [place] [address] 79115- 9454 Jun, [facility] [address] [place] [id number] [place] [address] 67440 -9795 May, Upper respiratory symptom R09.89 [facility] [place] [address] [place] [id number] [place] [address] 14174- 8086 May, [facility] [place] [address] [place] [id number] [place] [address] 56549- 4191 Apr, Costochondritis M94.0 and Knee pain, left M25.562 [facility] [place] [address] [place] [id number] [place] [address] 46136- 7836 Apr, [facility] [place] [address] [place] [id number] [place] [address] 98492- 5349 Mar, Eustachian tube dysfunction, left H69.82 [facility] [place] [address] [place] [id number] [place] [address] 65674- 2554 Mar, [facility] [place] [address] [place] [id number] [place] [address] 00156- 1736 Mar, [facility] [place] [address] [place] [id number] [place] [address] 99149- 2046 Mar, [facility] [place] [address] [place] [id number] [place] [address] 44972- 4189 Feb, [facility] [place] [address] [place] [id number] [place] [address] 91539- 8769 Feb, [facility] [place] [address] [place] [address] [address]- 7244 Feb, [facility] [place] [address] [place] [address] [address]- 8503 Jan, Asthma 493.90 [facility] [place] [address] [place] [id number] [place] [address] 44972- 2588 Dec, [facility] [place] [address] [place] [address] 20855- 0811 Dec, [facility] [place] [address] [place] [id number] [place] [address] 01608- 9602 Dec, [facility] [place] [address] [place] [id number] [place] [address] 98376- 8654 Dec, [facility] [place] [address] [place] [id number] [place] [address] 355305- 4561 Dec, Asthma, unspecified, unspecified status 493.90 [facility] [place] [address] [place] [address] 54138- 3664 Nov, [facility] [place] [address] [place] [id number] [place] [address] 48410- 9377 Nov, Asthma, unspecified, unspecified status 493.90 [facility] [place] [address] [place] [address] 03930- 5079 October, Asthma, unspecified, unspecified status 493.90 [facility] [place] [address] [address]- 6024 October, [facility] [place] [address] [address]- 1582 October, Contact dermatitis 692.9 and Candidiasis of skin 112.3 [facility] [place] [address] [address]- 0742 Sep, [facility] [place] [address] [place] [id number] [place] [address] 58409- 7678 Sep, [facility] [place] [address] [address]- 8633 Aug, [facility] [place] [address] [id number] [place] [address]- 2326 Aug, [facility] [place] [facility] [address] [id number] [place] [address]- 5927 Aug, [facility] [place] [facility] [address] [id number] [place] [address]- 0656 Aug, [facility] [place] [facility] [address] [id number] [place] [address]- 4386 Jul, [facility] [place] [facility] [address] [id number] [place] [address]- 7954 Jul, [facility] [place] [facility] [address] [id number] [place] [address]- 7426 Jun, [facility] [place] [facility] [address] [id number] [place] [address]- 9728 Jun, [facility] [place] [facility] [address] [id number] [place] [address]- 9334 May, [facility] [place] [facility] [address] [id number] [place] [address]- 5001 May, [facility] [place] [facility] [address] [id number] [place] [address]- 3326 May, [facility] [place] [facility] [address] [id number] [place] [address]- 9304 May, [facility] [place] [facility] [address] [id number] [place] [address] 2546 May, [facility] [place] [facility] [address] [id number] [place] [address]- 9222 May, [facility] [place] [facility] [address] [id number] [place] [address]- 3356 Apr, [facility] [place] [facility] [address] [id number] [place] 8882 Apr, [facility] [place] [facility] [address] [id number] [place] [address]- 4030 Feb, [facility] [place] [facility] [address] [id number] [place] [address]- 3980 15 Feb, 2014 [facility] [place] [facility] [address] [id number] [place] [address]- 3240 Feb, [facility] [place] [facility] [address] [id number] [place] [address]- 8654 Feb, [facility] [place] [facility] [address] [id number] [place] [address]- 3115 05 Feb, 2014 [facility] [place] [facility] [address] [id number] [place] [address]- 1390 05 Feb, 2014 [facility] [place] [facility] [address] [id number] [place] [address]- 5553 Jan, [facility] [place] [facility] [address] [id number] [place] [address]- 9754 Jan, [facility] [place] [facility] [address] [id number] [place] [address]- 5320 Jan, [facility] [place] [facility] [address] [id number] [place] [address]- 3087 Jan, [facility] [place] [facility] [address] [id number] [place] [address]- 4619 Jan, [facility] [place] [facility] [address] [id number] [place] [address]- 8554 Jan, [facility] [place] [facility] [address] [id number] [place] [address]- 9838 Dec, [facility] [place] [facility] [address] [id number] [place] [address]- 2353 Dec, [facility] [place] [facility] [address] [id number] [place] [address]- 2627 Nov, [facility] [place] [facility] [address] [id number] [place] [address]- 6592 Nov, [facility] [place] [facility] [address] [id number] [place] [address]- 3392 Nov, [facility] [place] [facility] [address] [id number] [place] [address]- 0667 Nov, [facility] [place] [facility] [address] [id number] [place] [address]- 3247 Nov, [facility] [place] [facility] [address] [id number] [place] [address]- 4925 Nov, [facility] [place] [facility] [address] [id number] [place] [address]- 6929 Nov, [facility] [place] [facility] [address] [id number] [place] [address]- 0271 Nov, [facility] [place] [facility] [address] [id number] [place] [address]- 8475 Nov, [facility] [place] [facility] [address] [id number] [place] [address]- 9745 Nov, [facility] [place] [facility] [address] [id number] [place] [address]- 7273 Nov, [facility] [place] [facility] [address] [id number] [place] [address] Nov, [facility] [place] [facility] [address] [id number] [place] [address] Nov, [facility] [place] [facility] [address] [id number] [place] [address] October, [facility] [place] [facility] [address] [id number] [place] [address] October, [facility] [place] [facility] [address] [id number] [place] [address] October, [facility] [place] [facility] [address] [id number] [place] [address] October, [facility] [place] [facility] [address] [id number] [place] [address] Sep, [facility] [place] [facility] [address] [id number] [place] [address] 10 Sep, 2013 [facility] [place] [facility] [address] [id number] [place] [address] Sep, [facility] [place] [facility] [address] [id number] [place] [address] Sep, [facility] [place] [facility] [address] [id number] [place] [address] Aug, [facility] [place] [facility] [address] [id number] [place] [address] Aug, [facility] [place] [facility] [address] [id number] [place] [address] Jul, [facility] [place] [facility] [address] [id number] [place] [address] Jul, [facility] [place] [facility] [address] [id number] [place] [address] Jun, [facility] [place] [facility] [address] [id number] [place] [address] Jun, [facility] [place] [facility] [address] [id number] [place] [address] Mar, [facility] [place] [facility] [address] [id number] [place] [address] Mar, [facility] [place] [facility] [address] [id number] [place] [address] Mar, [facility] [place] [facility] [address] [id number] [place] [address] Mar, [facility] [place] [facility] [address] [id number] [place] [address] Mar, [facility] [place] [facility] [address] [id number] [place] [address] Feb, [facility] [place] [facility] [address] [id number] [place] [address] Feb, [facility] [address] [id number] [place] [address] Dec, [facility] [place] [facility] [address] [id number] [place] [address] Nov, [facility] [place] [facility] [address] [id number] [place] [address] October, [facility] [place] [facility] [address] [id number] [place] [address] Sep, [facility] [address] [id number] [place] [address] Sep, [facility] [place] [facility] [address] [id number] [place] [address] Aug, [facility] [place] [facility] [address] [id number] [place] [address] Aug, [facility] [place] [facility] [address] [id number] [place] [address] Aug, [facility] [place] [facility] [address] [id number] [place] [address] Aug, [facility] [place] [facility] [address] [id number] [place] [address] Jun, [facility] [place] [facility] [address] [id number] [address] Jun, [facility] [place] [facility] [address] [id number] [place] [address] Jun, [facility] [place] [facility] [address] [id number] [place] [address] May, [facility] [place] [facility] [address] [id number] [place] [address] May, [facility] [place] [facility] [address] [id number] [place] [address] Apr, [facility] [place] [facility] [address] [id number] [place] [address] 28 Apr, 2012 [facility] [place] [facility] [address] [id number] [place] [address] Apr, [facility] [place] [facility] [address] [id number] [place] [address] Apr, [facility] [place] [facility] [address] [id number] [place] [address] Apr, [facility] [place] [facility] [address] [id number] [place] [address] Apr, [facility] [place] [facility] [address] [id number] [place] [address] Apr, [facility] [place] [facility] [address] [id number] [place] [address] 31 Mar, 2012 [facility] [place] [facility] [address] [id number] [place] [address] 31 Mar, 2012 [facility] [place] [facility] [address] [id number] [place] [address] 18 Feb, 2012 [facility] [place] [facility] [address] [id number] [place] [address]447 17 Feb, 2012 [facility] [place] [facility] [address] [id number] [place] [address] 13 Feb, 2012 [facility] [place] [facility] [address] [id number] [place] [address] 1263 15 Jan, 2012 [facility] [place] [facility] [address] [id number] [place] [address] 14 Jan, 2012 [facility] [place] [facility] [address] [id number] [place] [address] Jan, [facility] [place] [facility] [address] [id number] [place] [address] Jan, [facility] [place] [facility] [address] [id number] [place] [address] Dec, [facility] [place] [facility] [address] [id number] [place] [address] 20 Dec, 2011 [facility] [place] [facility] [address] [id number] [place] [address] 18 Dec, 2011 [facility] [place] [facility] [address] [id number] [place] [address]386 17 Dec, 2011 [facility] [place] [facility] [address] [id number] [place] [address] 10 Dec, 2011 [facility] [place] [facility] [address] [id number] [place] [address] 14 Nov, 2011 [facility] [place] [facility] [address] [id number] [place] [address] 4265 Nov, [facility] [place] [facility] [address] [id number] [place] [address] Nov, [facility] [place] [facility] [address] [id number] [place] [address] Nov, [facility] [place] [facility] [address] [id number] [place] [address]183 October, [facility] [place] [facility] [address] [id number] [place] [address] October, [facility] [place] [facility] [address] [id number] [place] [address] October, [facility] [place] [facility] [address] [id number] [place] [address] October, [facility] [place] [facility] [address] [id number] [place] [address]267 October, [facility] [place] [facility] [address] [id number] [place] [address] Sep, [facility] [place] [facility] [address] [id number] [place] [address] Sep, [facility] [place] [facility] [address] [id number] [place] [address] 3296 12 Sep, 2011 [facility] [place] [facility] [address] [id number] [place] [address] 4298 11 Sep, 2011 [facility] [place] [facility] [address] [id number] [place] [address] 4760 03 Sep, 2011 [facility] [place] [facility] [address] [id number] [place] [address] 0596 29 Aug, 2011 [facility] [place] [facility] [address] [id number] [place] [address] 9664 28 Aug, 2011 [facility] [place] [facility] [address] [id number] [place] [address] 7693 27 Aug, 2011 [facility] [place] [facility] [address] [id number] [place] [address] 7178 26 Aug, 2011 [facility] [place] [facility] [address] [id number] [place] [address] 9343 23 Aug, 2011 [facility] [place] [facility] [address] [id number] [place] [address] 6037 20 Aug, 2011 [facility] [place] [facility] [address] [id number] [place] [address] 3538 19 Aug, 2011 [facility] [place] [facility] [address] [id number] [place] [address] 1857 17 Aug, 2011 [facility] [place] [facility] [address] [id number] [place] [address] 18 Jun, 2011 [facility] [place] [facility] [address] [id number] [place] [address]474 Jun, [facility] [place] [facility] [address] [id number] [place] [address]99 11 Jun, 2011 [facility] [place] [facility] [address] [id number] [place] [address] 8383 10 Jun, 2011 [facility] [place] [facility] [address] [id number] [place] [address] 40[address] Jun, [facility] [place] [facility] [id number] [address] May, [facility] [place] [id number] [address] Apr, [facility] [place] [id number] [address] October, [facility] [place] [id number] [place] [address] May, [facility] [place] [id number] [place] [address] May, [facility] [place] [id number] [place] [address]- [address] Apr, [facility] [place] [id number] [address] Jan, [facility] [place] [id number] [place] [address] Dec, [facility] [place] [id number] [address] Sep, [facility] [place] [id number] [place] [address]- [address] Sep, [facility] [place] [id number] [address] Jul, [facility] [place] [id number] [address] May, [facility] [place] [id number] [address] Jan, IMMUNIZATIONS No Known Immunizations SOCIAL HISTORY Never Assessed REASON FOR VISIT been sick for 4 months. has pain on her right side for 4 months. reports difficulty swallowing for the past 4 months. reports she has to have tramadol and ibuprofen to function...but didnt take any today so we can see her sick. homero PLAN OF CARE Activity Details Follow Up keep scheduled appt Reason: VITAL SIGNS Height 64 in 2017-08-24 Weight 258.6 lbs 2017-08-24 Temperature 98.3 degrees Fahrenheit 2017-08-24 Heart Rate 88 bpm 2017-08-24 Respiratory Rate 20 2017-08-24 BMI 44.38 kg/m2 2017-08-24 Blood pressure systolic 128 mmHg 2017-08-24 Blood pressure diastolic 78 mmHg 2017-08-24 MEDICATIONS Medication Instructions Dosage Frequency Start Date End Date Duration Status Wellbutrin XL 150 MG Orally Once a day 1 tablet in the morning 24h Active Proventil HFA 108 (90 Base) MCG/ACT Inhalation every 4 hrs 2 puffs as needed 4h Feb, Active Spiriva Respimat 1.25 MCG/ACT Inhalation Once a day 2 puffs 24h Aug, 90 days Active Tramadol HCl 50 MG Orally 1 tablet 3 times a day as needed 1 tablet 28 days Active Cyclobenzaprine HCl 5 MG TAKE ONE TABLET BY MOUTH TWICE DAILY 30 Active Ibuprofen 800 MG Orally Three times a day 1 tablet 8h Active Losartan Potassium 25 MG TAKE ONE TABLET BY MOUTH ONCE DAILY 30 Active Omeprazole 20 MG TAKE ONE CAPSULE BY MOUTH ONCE DAILY 30 Active Albuterol Sulfate (2.5 MG/3ML) 0.083% inhale 3 milliliters (2.5 mg) by nebulization route 4 times per day PRN for wheezing or cough Aug, Active Advair Diskus 250-50 MCG/DOSE Inhalation Twice a day 1 puff 12h Nov, 60 days Active Hydrochlorothiazide 50 mg TAKE ONE TABLET BY MOUTH ONCE DAILY 30 Active RESULTS No Results PROCEDURES No [...]
--- OUTSIDE RECORDS SUMMARY | 2018-05-04 07:35 | XMS REPORT ---
Author Author JENNIFER CANCINO Organization [facility] Address [address] [place] [address] Care Team Providers Care Lift Operator Name Role Phone JENNIFER CANCINO Unavailable PROBLEMS Type Condition ICD9-CM Code OSC56-GB Code Onset Dates Condition Status SNOMED Code Problem Mild persistent asthma without complication J45.30 Active 502396056 Problem Edema, unspecified type R60.9 Active 596030811 Problem Gastroesophageal reflux disease with esophagitis K21.0 Active 321023388 Problem Essential hypertension I10 Active 39906714 Problem Moderate persistent asthma with exacerbation J45.41 Active 047132606 Problem Other chronic pain G89.29 Active 00978287 Problem Esophageal abnormality K22.9 Active 30535684 Problem Hammer toe of right foot M20.41 Active 350568633 Problem Abnormal EKG R94.31 Active 137355398 Problem Right upper quadrant abdominal pain R10.11 Active 476801847 ALLERGIES No Information ENCOUNTERS Encounter Location Date Diagnosis [place] [address] [address]78- [address]31 Dec, [place] [address] 55902- 8353 Nov, Abscess L02.91 [place] [address] 52435- 7460 Nov, Moderate persistent asthma with exacerbation J45.41 [place] [address] 87057- 5013 Nov, Low back pain M54.5 and Other chronic pain G89.29 [place] [address] [place] [id number] [place] [address] 22166- 2650 October, Abscess L02.91 [place] [address] 51826- 9038 October, Cutaneous abscess of back excluding buttocks L02.212 and BMI 40.0-44.9, adult Z68.41 [place] [address] [place] [id number] [place] [address] 29775- 2532 October, [place] [address] [place] [id number] [place] [address] 27375- 3271 October, [place] [address] 60640- 2089 Sep, [place] [address] 56089- 3045 Sep, Abscess L02.91 [place] [address] [place] [id number] [place] [address] 86655- 3780 Sep, Right upper quadrant abdominal pain R10.11 ; Mild persistent asthma without complication J45.30 and BMI 40.0-44.9, adult Z68.41 [place] [address] [place] [id number] [place] [address] 23257- 0913 Aug, Abscess L02.91 and BMI 40.0-44.9, adult Z68.41 [place] [address] [place] [id number] [place] [address] 84105- 5748 Aug, Edema, unspecified type R60.9 [place] [address] [place] [id number] [place] [address] 53234- 6867 Aug, Right upper quadrant abdominal pain R10.11 ; Abnormal EKG R94.31 ; Esophageal abnormality K22.9 and BMI 40.0-44.9, adult Z68.41 [place] [address] [place] [id number] [place] [address] 71371- 2743 Aug, Hammer toe of right foot M20.41 and Onychomycosis B35.1 [facility] [address] [place] [id number] [place] [address] 02657 -7411 Aug, Myalgia M79.1 [place] [address] [place] [id number] [place] [address] 41609- 3011 Aug, [place] [address] 91662- 3250 Aug, Annual physical exam Z00.00 ; BMI 40.0-44.9, adult Z68.41 ; Mild persistent asthma without complication J45.30 ; Gastroesophageal reflux disease with esophagitis K21.0 ; Acute right-sided thoracic back pain M54.6 ; Trouble breathing R06.89 and Neck pain M54.2 [place] [address] 80283- 6895 Jul, Mild persistent asthma without complication J45.30 [place] [address] 15861- 5657 Jul, Edema, unspecified type R60.9 [place] [address] 02978- 1030 Jun, Edema, unspecified type R60.9 [place] [address] [place] [id number] [place] [address] 39360- 2104 Jun, Moderate persistent asthma with exacerbation J45.41 [place] [address] [place] [id number] [place] [address] 29143- 4265 May, Edema, unspecified type R60.9 [place] [address] [place] [id number] [place] [address] 66731- 1371 May, Moderate persistent asthma with exacerbation J45.41 and Hammer toe of right foot M20.41 [place] [address] [place] [id number] [place] [address] 25115- 1006 04 May, 2017 Moderate persistent asthma without complication J45.40 ; Dysfunction of left eustachian tube H69.82 and BMI 45.0-49.9, adult Z68.42 [place] [address] [place] [id number] [place] [address] 38109- 4634 Apr, Edema, unspecified type R60.9 [place] [address] [place] [id number] [address]- 8986 Mar, Edema, unspecified type R60.9 [facility] [address] [place] [id number] [place] [address] 87337- 6946 Feb, Edema, unspecified type R60.9 [facility] [address] [place] [id number] [place] [address] 39219- 2786 Jan, Edema, unspecified type R60.9 [facility] [address] [place] [id number] [place] [address] 97128- 5691 Jan, Mild persistent asthma without complication J45.30 [place] [address] [place] [id number] [place] [address] 80859- 0796 Dec, Edema, unspecified type R60.9 [place] [address] [place] [id number] [place] [address] 63191- 5206 Nov, Edema, unspecified type R60.9 and Essential hypertension I10 [place] [address] [place] [id number] [place] [address] 88013- 4565 October, Pain in left knee M25.562 [place] [address] [place] [id number] [place] [address] 60670- 7503 October, Pain in left knee M25.562 [place] [address] [place] [id number] [place] [address] 65404- 7786 October, [facility] [address] [place] [id number] [place] [address] 39919- 9475 Sep, [facility] [address] [place] [id number] [place] [address] 26040- 9279 Sep, Mild persistent asthma without complication J45.30 [facility] [address] [place] [id number] [place] [address] 92511- 6328 Sep, Pain in left knee M25.562 [facility] [address] [place] [id number] [place] [address] 98983- 7900 Aug, Acute nasopharyngitis J00 and Seasonal allergic rhinitis due to pollen J30.1 [facility] [address] [place] [id number] [place] [address] 06027- 1056 16 Aug, 2016 [facility] [address] [place] [id number] [place] [address] 87146- 9139 13 Aug, 2016 Arthralgia, unspecified joint M25.50 and Pain in left knee M25.562 [facility] [address] [place] [id number] [place] [address] 50471- 3617 08 Aug, 2016 Mild persistent asthma without complication J45.30 [place] [address] 70335- 9406 28 Jul, 2016 Mild persistent asthma without complication J45.30 [place] [address] [place] [id number] [place] [address] 13103- 2643 13 Jul, 2016 Pain in left knee M25.562 [place] [address] [place] [id number] [place] [address] 59928- 6943 Jun, [facility] [address] [place] [id number] [place] [address] 95631 -8806 Jun, [facility] [address] [place] [id number] [place] [address] 59318- 1915 Jun, Mild persistent asthma without complication J45.30 [place] [address] [place] [id number] [place] [address] 81444- 3309 May, [facility] [address] [place] [id number] [place] [address] 93162- 3469 Apr, Restrictive lung disease J98.4 [place] [address] [place] [id number] [place] [address] 73052- 9949 Apr, [place] [address] [place] [id number] [place] [address] 56335- 8953 Apr, Mild persistent asthma without complication J45.30 [facility] [address] [place] [address] -[address]393 Mar, Sore throat J02.9 and Post-nasal drainage R09.82 [facility] [address] [place] [id number] [place] [address] 19659- 2300 Mar, [facility] [address] [place] [id number] [place] [address] 77758- 4353 Feb, [facility] [address] [place] [id number] [place] [address] 56343- 1134 Feb, Mild persistent asthma without complication J45.30 [facility] [address] [address]- 9502 Feb, Arthralgia, unspecified joint M25.50 [place] [id number] [place] [address] 06789- 8961 Feb, Edema, unspecified type R60.9 ; Arthralgia, unspecified joint M25.50 ; Mild persistent asthma without complication J45.30 ; Essential hypertension I10 ; Gastroesophageal reflux disease without esophagitis K21.9 and Major depressive disorder with single episode, remission status unspecified F32.9 [place] [address] [place] [address] 09873- 9979 Jan, Edema, unspecified type R60.9 ; Essential hypertension I10 ; Mild persistent asthma without complication J45.30 ; Gastroesophageal reflux disease with esophagitis K21.0 ; Arthralgia, unspecified joint M25.50 and Major depressive disorder with single episode, remission status unspecified F32.9 [place] [address] [address]- 8505 Jan, [place] [address] [address]- 7610 Dec, [facility] [address] [address]- 8683 Dec, [facility] [address] [place] [address] 11051- 1830 Dec, [facility] [address] [address]- 5181 Nov, Bilateral edema of lower extremity R60.0 [facility] [address] [address]- 0396 Nov, Bilateral edema of lower extremity R60.0 [facility] [address] [address] -6296 Nov, [facility] [address] [place] [address]- 5842 Nov, [facility] [address] [address]- 7734 October, [facility] [address] [address]- 0546 Sep, [facility] [address] [address]- 2955 Aug, Acute sinusitis J01.90 [facility] [address] [address]- 2805 Aug, [facility] [address] [address]- 3700 Aug, [facility] [address], [place] [address]- 9943 Jul, [facility] [address], [place] [address]- 5216 Jul, Pharyngitis J02.9 [facility] [address] [place] [id number] [address]- 2546 Jul, [facility] [address] [place] [address]- 2546 Jun, Pain in left knee M25.562 [facility] [address], [place] [address]- 9376 Jun, [facility] [id number], [place] [address] -1235 May, Upper respiratory symptom R09.89 [facility] [address] [place] [id number] [place] [address] 61953- 2321 May, [facility] [address] [place] [id number] [place] [address] 42057- 9105 Apr, Costochondritis M94.0 and Knee pain, left M25.562 [facility] [address] [place] [id number] [place] [address] 23887- 3988 Apr, [facility] [address] [place] [id number] [place] [address] 02255- 8489 Mar, Eustachian tube dysfunction, left H69.82 [facility] [address] [place] [id number] [place] [address] 76220- 2718 Mar, [facility] [address] [place] [id number] [place] [address] 61790- 6098 Mar, [facility] [address] [place] [id number] [place] [address] 53115- 8986 Mar, [facility] [address] [place] [id number] [place] [address] 75405- 1741 Feb, [facility] [address] [place] [id number] [place] [address] 36940- 3971 Feb, [facility] [address] [place] [id number] [place] [address] 71208- 5508 Feb, [facility] [address] [place] [id number] [place] [address] 77654- 6774 Jan, Asthma 493.90 [facility] [address] [place] [id number] [place] [address] 86561- 9977 Dec, [facility] [address] [place] [id number] [place] [address] 65050- 7777 Dec, [facility] [address] [place] [id number] [place] [address] 88729- 2556 Dec, [facility] [address], [place] [address]- 9076 Dec, [facility] [id number], [place] [address]- 9586 Dec, Asthma, unspecified, unspecified status 493.90 [facility] [id number], [place] [address]- 8446 Nov, [facility] [id number], [place] [address]- 2546 Nov, Asthma, unspecified, unspecified status 493.90 [facility] [address], [place] [address]- 0846 October, Asthma, unspecified, unspecified status 493.90 [facility] [address], [place] [address]- 8986 October, [facility] [id number], [place] [address]- 1696 October, Contact dermatitis 692.9 and Candidiasis of skin 112.3 [facility] [id number], [place] [address]- 6456 Sep, [facility] [id number], [place] [address]- 9906 Sep, [facility] [id number], [place] [address]- 3046 Aug, [facility] [id number], [place] [address]- 7696 Aug, [facility] [id number], [place] [address]- 6056 Aug, [facility] [address] [place] [id number] [address]- 4436 Aug, [facility] [id number], [place] [address]- 4343 Jul, [facility] [place] [facility] [address] [id number] [place] [address]- 9080 Jul, [facility] [place] [facility] [address] [id number] [place] [address]- 7106 Jun, [facility] [place] [facility] [address] [facility] [id number] [place] 8447 Jun, [facility] [place] [facility] [address] [id number] [place] [address]- 2426 May, [facility] [place] [facility] [address] [id number] [place] [address]- 1637 May, [facility] [place] [facility] [address] [id number] [place] [address]- 6825 May, [facility] [place] [facility] [address] [id number] [place] [address]- 7644 May, [facility] [place] [facility] [address] [id number] [place] [address]- 5761 May, [facility] [place] [facility] [address] [id number] [place] [address]- 8527 May, [facility] [place] [facility] [address] [id number] [place] [address]- 6673 Apr, [facility] [place] [facility] [address] [id number] [place] [address]- 2509 Apr, [facility] [place] [facility] [address] [id number], [place] [address]- 4478 15 Feb, 2014 [facility] [place] [facility] [address] [id number] [place] [address]- 2546 15 Feb, 2014 [facility] [place] [facility] [address] [id number] [place] [address]- 5114 Feb, [facility] [place] [facility] [address] [id number] [place] [address]- 4006 Feb, [facility] [place] [facility] [address] [id number] [place] [address]- 9280 Feb, [facility] [place] [facility] [address] [id number] [place] [address]- 6587 Feb, [facility] [place] [facility] [address] [id number] [place] [address]- 7929 Jan, [facility] [place] [facility] [address] [id number] [place] [address]- 0382 Jan, [facility] [place] [facility] [address] [id number] [place] [address]- 2628 Jan, [facility] [place] [facility] [address] [id number] [place] [address]- 1674 Jan, [facility] [place] [facility] [address] [id number] [place] [address]- 3931 Jan, [facility] [place] [facility] [address] [id number] [place] [address]- 5063 Jan, [facility] [place] [facility] [address] [id number] [place] [address]- 3298 Dec, [facility] [place] [facility] [address] [id number] [place] [address]- 2668 Dec, [facility] [place] [facility] [address] [id number] [place] [address]- 4909 Nov, [facility] [place] [facility] [address] [id number] [place] [address]- 0689 Nov, [facility] [place] [facility] [address] [id number] [place] [address]- 8597 Nov, [facility] [place] [facility] [address] [id number] [place] [address]- 9426 Nov, [facility] [place] [facility] [address] [id number] [place] [address]- 1463 Nov, [facility] [place] [facility] [address] [id number] [place] [address]- 0564 Nov, [facility] [place] [facility] [address] [id number] [place] [address]- 1585 Nov, [facility] [place] [facility] [address] [id number] [place] [address]- 2582 Nov, [facility] [place] [facility] [address] [id number] [place] [address]- 0795 Nov, [facility] [place] [facility] [address] [id number] [place] [address]- 9583 Nov, [facility] [place] [facility] [address] [id number] [place] [address]- 2475 Nov, [facility] [place] [facility] [address] [id number] [place] [address]- 0487 Nov, [facility] [place] [facility] [address] [id number] [place] [address]- 0918 Nov, [facility] [place] [facility] [address] [id number] [place] [address]- 6029 October, [facility] [place] [facility] [address] [id number] [place] [address]- 3435 October, [facility] [place] [facility] [address] [id number] [place] [address]- 5015 October, [facility] [place] [facility] [address] [id number] [place] [address]- 0486 October, [facility] [place] [facility] [address] [id number] [place] [address]- 3121 Sep, [facility] [place] [facility] [address] [id number] [place] [address]- 2018 Sep, [facility] [place] [facility] [address] [id number] [place] [address]- 9974 Sep, [facility] [place] [facility] [address] [id number] [place] [address]- 4283 Sep, [facility] [place] [facility] [address] [id number], [place] [address]- 3952 Aug, [facility] [place] [facility] [address] [id number] [place] [address]- 0254 Aug, [facility] [place] [facility] [address] [id number] [place] [address]- 9518 Jul, [facility] [place] [facility] [address] [id number] [place] [address]- 7814 Jul, [facility] [place] [facility] [address] [id number] [place] [address]- 3991 Jun, [facility] [place] [facility] [address] [id number] [place] [address]- 3375 Jun, [facility] [place] [facility] [address] [id number] [place] [address]- 5544 Mar, [facility] [place] [facility] [address] [id number], [place] [address]- 3291 Mar, [facility] [place] [facility] [address] [id number] [place] [address]- 8293 Mar, [facility] [place] [facility] [address] [id number] [place] [address]- 7571 Mar, [facility] [place] [facility] [address] [facility] [id number] [place] [address]- 1366 Mar, [facility] [place] [facility] [address] [id number] [place] [address]- 4300 Feb, [facility] [place] [facility] [address] [id number], [place] [address]- 4760 Feb, [facility] [place] [facility] [address] [id number] [place] [address]- 2638 Dec, [facility] [place] [facility] [address] [id number] [place] [address]- 5570 Nov, [facility] [place] [facility] [address] [id number] [place] [address]- 4547 October, [facility] [place] [facility] [address] [id number] [place] [address]- 4248 Sep, [facility] [place] [facility] [address] [id number] [place] [address] Sep, [facility] [place] [facility] [address] [id number] [place] [address] 29 Aug, 2012 [facility] [place] [facility] [address] [id number] [place] [address] 28 Aug, 2012 [facility] [place] [facility] [address] [id number] [place] [address] Aug, [facility] [place] [facility] [address] [id number] [place] [address] 12 Aug, 2012 [facility] [place] [facility] [address] [id number] [place] [address] 14 Jun, 2012 [facility] [place] [facility] [address] [id number] [place] [address] Jun, [facility] [place] [facility] [address] [id number] [place] [address] Jun, [facility] [place] [facility] [address] [id number] [place] [address] May, [facility] [place] [facility] [address] [id number] [place] [address] May, [facility] [place] [facility] [address] [id number] [place] [address] Apr, [facility] [place] [facility] [address] [id number] [place] [address] Apr, [facility] [place] [facility] [address] [id number] [place] [address] Apr, [facility] [place] [facility] [address] [id number] [place] [address] Apr, [facility] [place] [facility] [address] [id number] [place] [address] Apr, [facility] [place] [facility] [address] [id number] [place] [address]- [address] Apr, [facility] [place] [facility] [address] [id number] [place] [address] Apr, [facility] [place] [facility] [address] [id number] [place] [address] Mar, [facility] [place] [facility] [address] [id number] [place] [address] Mar, [facility] [place] [facility] [address] [id number] [place] [address] 18 Feb, 2012 [facility] [place] [facility] [address] [id number] [place] [address] 17 Feb, 2012 [facility] [place] [facility] [address] [id number] [place] [address] Feb, [facility] [place] [facility] [address] [id number] [place] [address] Jan, [facility] [place] [facility] [address] [id number] [place] [address] Jan, [facility] [place] [facility] [address] [id number] [place] [address] Jan, [facility] [place] [facility] [address] [id number], [place] [address] Jan, [facility] [place] [facility] [address] [id number], [place] [address] Dec, [facility] [place] [facility] [address] [id number] [place] [address] Dec, [facility] [place] [facility] [address] [id number], [place] [address] Dec, [facility] [place] [facility] [address] [id number] [place] [address] Dec, [facility] [place] [facility] [address] [id number] [place] [address] 10 Dec, 2011 [facility] [address] [id number] [place] [address] Nov, [facility] [place] [facility] [address] [id number] [place] [address] 14 Nov, 2011 [facility] [address] [id number] [place] [address] Nov, [facility] [place] [facility] [address] [id number] [place] [address] Nov, [facility] [place] [facility] [address] [id number] [place] [address] October, [facility] [place] [facility] [address] [id number] [place] [address] October, [facility] [address] [id number] [place] [address] October, [facility] [place] [facility] [address] [id number] [place] [address] October, [facility] [place] [facility] [address] [id number] [place] [address] October, [facility] [place] [facility] [address] [facility] [id number] [place] [address] Sep, [facility] [place] [facility] [address] [id number] [place] [address] Sep, [facility] [place] [facility] [address] [id number] [place] [address] Sep, [facility] [place] [facility] [address] [address] [id number] [place] [address] Sep, [facility] [place] [facility] [address] [id number] [place] [address] Sep, [facility] [place] [facility] [address] [id number] [place] [address] Aug, [facility] [place] [facility] [address] [id number] [place] [address] 28 Aug, 2011 [facility] [address] [id number] [place] [address] 27 Aug, 2011 [facility] [address] [id number] [place] [address] 26 Aug, 2011 [facility] [address] [id number] [place] [address] 23 Aug, 2011 [facility] [address] [id number] [place] [address] 20 Aug, 2011 [facility] [address] [id number] [place] [address] 19 Aug, 2011 [facility] [address] [id number] [place] [address] 17 Aug, 2011 [facility] [address] [id number] [place] [address] 18 Jun, 2011 [facility] [address] [id number] [place] [address] Jun, [facility] [address] [id number] [place] [address] Jun, [facility] [address] [id number] [place] [address] Jun, [facility] [address] [id number] [place] [address] Jun, [facility] [address] [id number] [place] [address] May, [facility] [place] [facility] [address] [id number] [place] [address] Apr, [facility] [place] [facility] [address] [id number] [place] [address] October, [facility] [address] [id number], [place] [address] May, [facility] [id number] [place] [address] May, [facility] [id number] [place] [address] Apr, [facility] [id number], [place] [address] Jan, [facility] [id number], [place] [address] Dec, [facility] [id number], [place] [address] Sep, [facility] [id number], [place] [address] Sep, [facility] [id number] [place] [address] Jul, [facility] [id number], [place] [address] May, [facility] [id number], [place] [address] Jan, IMMUNIZATIONS No Known Immunizations SOCIAL HISTORY Never Assessed REASON FOR VISIT Controlled med and sample request PLAN OF CARE VITAL SIGNS MEDICATIONS Medication Instructions Dosage Frequency Start Date End Date Duration Status Hydrochlorothiazide 50 mg TAKE ONE TABLET BY MOUTH ONCE DAILY 30 Active Advair Diskus 250-50 MCG/DOSE Inhalation Twice a day 1 puff 12h Nov, 60 days Active RESULTS No Results PROCEDURES No [...]
--- OUTSIDE RECORDS SUMMARY | 2018-05-04 07:35 | XMS REPORT ---
Author Author RADHA CARIAS [facility] Address [address] [place] [address] Care Team Providers Care Cardio Clinician Name Role Phone RADHA CARIAS Unavailable PROBLEMS Type Condition ICD9-CM Code ZPE16-JG Code Onset Dates Condition Status SNOMED Code Problem Mild persistent asthma without complication J45.30 Active 105482819 Problem Edema, unspecified type R60.9 Active 544705629 Problem Gastroesophageal reflux disease with esophagitis K21.0 Active 014807785 Problem Essential hypertension I10 Active 96407746 Problem Moderate persistent asthma with exacerbation J45.41 Active 500891216 Problem Other chronic pain G89.29 Active 98767620 Problem Esophageal abnormality K22.9 Active 43992140 Problem Hammer toe of right foot M20.41 Active 566412114 Problem Abnormal EKG R94.31 Active 567490790 Problem Right upper quadrant abdominal pain R10.11 Active 148404275 ALLERGIES Substance Reaction Event Type Date Status Naprosyn itching Drug Allergy Aug, Active Micardis Unknown Drug Allergy Aug, Active Hydrocodone Bitartrate itching Drug Allergy Aug, Active Celebrex swelling Drug Allergy Aug, Active Doxycycline scalp rash Drug Allergy Aug, Active ENCOUNTERS Encounter Location Date Diagnosis [place] [id number] [address] Dec, [place] [id number] [address] Nov, Abscess L02.91 [place] [id number] [place] [address] 11325- 9960 Nov, Moderate persistent asthma with exacerbation J45.41 [place] [id number] [address] 04 David, 2018 Low back pain M54.5 and Other chronic pain G89.29 [place] [id number] [place] [address] 55596- 2132 October, Abscess L02.91 [place] [id number] [place] [address] 53714- 7186 October, Cutaneous abscess of back excluding buttocks L02.212 and BMI 40.0-44.9, adult Z68.41 [place] [address] 22246- 6201 October, [place] [id number] [place] [address] 54319- 7706 October, [place] [address] 28783- 1407 Sep, [place] [address] 54257- 1336 Sep, Abscess L02.91 [place] [id number] [place] [address] 03284- 7515 Sep, Right upper quadrant abdominal pain R10.11 ; Mild persistent asthma without complication J45.30 and BMI 40.0-44.9, adult Z68.41 [place] [id number] [place] [address] 20885- 1169 Aug, Abscess L02.91 and BMI 40.0-44.9, adult Z68.41 [place] [id number] [place] [address] 99671- 4059 Aug, Edema, unspecified type R60.9 [place] [address] 03968- 7022 Aug, Right upper quadrant abdominal pain R10.11 ; Abnormal EKG R94.31 ; Esophageal abnormality K22.9 and BMI 40.0-44.9, adult Z68.41 [place] [address] 26229- 4807 Aug, Hammer toe of right foot M20.41 and Onychomycosis B35.[address] [facility] [id number] [place] [address] 91321 -0488 Aug, Myalgia M79.1 [facility] [id number] [place] [address] 15366- 2485 Aug, [place] [address] 62207- 5980 Aug, Annual physical exam Z00.00 ; BMI 40.0-44.9, adult Z68.41 ; Mild persistent asthma without complication J45.30 ; Gastroesophageal reflux disease with esophagitis K21.0 ; Acute right-sided thoracic back pain M54.6 ; Trouble breathing R06.89 and Neck pain M54.2 [place] [address] 12347- 1176 Jul, Mild persistent asthma without complication J45.30 [place] [address] 87071- 9787 Jul, Edema, unspecified type R60.9 [place] [address] 79220- 8927 Jun, Edema, unspecified type R60.9 [place] [address] 56640- 1954 Jun, Moderate persistent asthma with exacerbation J45.41 [place] [address] 06359- 7119 May, Edema, unspecified type R60.9 [place] [address] 42833- 9410 May, Moderate persistent asthma with exacerbation J45.41 and Hammer toe of right foot M20.41 [place] [address] 70430- 9303 May, Moderate persistent asthma without complication J45.40 ; Dysfunction of left eustachian tube H69.82 and BMI 45.0-49.9, adult Z68.42 [place] [id number] [place] [address] 11417- 3341 Apr, Edema, unspecified type R60.9 [place] [id number] [place] [address] 76713- 2049 Mar, Edema, unspecified type R60.9 [place] [id number] [place] [address] 44127- 7843 Feb, Edema, unspecified type R60.9 [place] [id number] [place] [address] 20183- 5388 Jan, Edema, unspecified type R60.9 [place] [id number] [place] [address] 41362- 4023 Jan, Mild persistent asthma without complication J45.30 [place] [id number] [place] [address] 46415- 2377 Dec, Edema, unspecified type R60.9 [place] [id number] [place] [address] 27885- 2881 Nov, Edema, unspecified type R60.9 and Essential hypertension I10 [place] [id number] [place] [address] 69567- 9311 October, Pain in left knee M25.562 [place] [id number] [place] [address] 31527- 5271 October, Pain in left knee M25.562 [place] [id number] [place] [address] 34249- 1894 October, [place] [id number] [place] [address] 81235- 3316 Sep, [place] [id number] [place] [address] 06832- 3088 Sep, Mild persistent asthma without complication J45.30 [facility] [id number] [place] [address] 70483- 3895 Sep, Pain in left knee M25.562 [place] [id number] [place] [address] 10757- 6111 23 Aug, 2016 Acute nasopharyngitis J00 and Seasonal allergic rhinitis due to pollen J30.1 [place] [address] 49415- 5333 16 Aug, 2016 [place] [id number] [place] [address] 10566- 0143 Aug, Arthralgia, unspecified joint M25.50 and Pain in left knee M25.562 [place] [id number] [place] [address] 49359- 6819 08 Aug, 2016 Mild persistent asthma without complication J45.30 [place] [id number] [place] [address] 13206- 6956 Jul, Mild persistent asthma without complication J45.30 [place] [id number] [place] [address] 02030- 9167 13 Jul, 2016 Pain in left knee M25.562 [place] [id number] [place] [address] 49092- 8912 Jun, [facility] [id number] [place] [address] 81670 -1828 Jun, [facility] [id number] [place] [address] 48824- 0587 Jun, Mild persistent asthma without complication J45.30 [place] [id number] [place] [address] 81271- 4690 May, [place] [id number] [place] [address] 88839- 9185 Apr, Restrictive lung disease J98.4 [place] [address] 34956- 0709 Apr, [facility] [address] [address]- 5443 Apr, Mild persistent asthma without complication J45.30 [facility] [address], [place] [address] Mar, Sore throat J02.9 and Post-nasal drainage R09.82 [facility] [id number] [place] [address] 05132- 2649 Mar, [facility] [id number] [place] [address] 19319- 6280 Feb, [place] [id number] [place] [address] 08675- 2097 Feb, Mild persistent asthma without complication J45.30 [facility] [id number] [place] [address] 37655- 8855 Feb, Arthralgia, unspecified joint M25.50 [facility] [id number] [place] [address] 30487- 7276 Feb, Edema, unspecified type R60.9 ; Arthralgia, unspecified joint M25.50 ; Mild persistent asthma without complication J45.30 ; Essential hypertension I10 ; Gastroesophageal reflux disease without esophagitis K21.9 and Major depressive disorder with single episode, remission status unspecified F32.9 [facility] [address] [place] [address] 51038- 3506 Jan, Edema, unspecified type R60.9 ; Essential hypertension I10 ; Mild persistent asthma without complication J45.30 ; Gastroesophageal reflux disease with esophagitis K21.0 ; Arthralgia, unspecified joint M25.50 and Major depressive disorder with single episode, remission status unspecified F32.9 [place] [address] [place] [address] 96249- 0555 Jan, [facility] [id number] [place] [address] 88951- 6000 Dec, [facility] [address] [address]- 0163 Dec, [facility] [address] [place] [address] 29116- 1266 Dec, [facility] [address] [address]- 8498 Nov, Bilateral edema of lower extremity R60.0 [facility] [address] [place] [address] 16078- 0513 Nov, Bilateral edema of lower extremity R60.0 [facility] [address] [place] [address] 20158 -3777 Nov, [facility] [address] [address]- 2575 Nov, [facility] [address] [place] [address] 55393- 2920 October, [facility] [address] [address]- 7973 Sep, [facility] [address] [place] [address] 79101- 0079 Aug, Acute sinusitis J01.90 [facility] [address] [address]- 1798 Aug, [facility] [address] [address]- 6364 Aug, [facility] [address], [place] [address]- 9311 Jul, [facility] [address], [place] [address]- 9222 Jul, Pharyngitis J02.9 [facility] [address], [place] [address]- 3030 Jul, [facility] [address] [address]- 1893 Jun, Pain in left knee M25.562 [facility] [id number] [place] [address] 24995- 3918 Jun, [facility] [address] [place] [address] 99595 -9007 May, Upper respiratory symptom R09.89 [facility] [id number] [place] [address] 76878- 8948 May, [facility] [id number] [place] [address] 40838- 4150 Apr, Costochondritis M94.0 and Knee pain, left M25.562 [facility] [id number] [place] [address] 74737- 6400 Apr, [facility] [id number] [place] [address] 90248- 8310 Mar, Eustachian tube dysfunction, left H69.82 [facility] [id number] [place] [address] 77714- 8394 Mar, [facility] [id number] [place] [address] 53216- 3477 Mar, [facility] [id number] [place] [address] 81291- 6326 Mar, [facility] [id number] [place] [address] 09474- 7200 Feb, [facility] [id number] [place] [address] 27829- 5519 Feb, [facility] [id number] [place] [address] 86167- 5232 Feb, [facility] [address] [place] [address] 12554- 8569 Jan, Asthma 493.90 [facility] [id number] [address]- 8814 Dec, [facility] [address] 7590 Dec, [facility] [address] [address]- 5024 Dec, [facility] [address] [address]- 8790 Dec, [facility] [address] [address]- 0689 Dec, Asthma, unspecified, unspecified status 493.90 [facility] [address] [place] [address] 24433- 4741 Nov, [facility] [id number] 7791 Nov, Asthma, unspecified, unspecified status 493.90 [facility] [address] [address]- 3491 October, Asthma, unspecified, unspecified status 493.90 [facility] [address] [address]- 8699 October, [facility] [address] [address]- 9625 October, Contact dermatitis 692.9 and Candidiasis of skin 112.3 [facility] [address] [address]- 6656 Sep, [facility] [address] [address]- 0396 Sep, [facility] [address] 2824 Aug, [facility] [address] 4982 Aug, [facility] [address] [address]- 5013 Aug, [facility] [place] [facility] [address] [id number] [place] [address]- 7300 Aug, [facility] [place] [facility] [address] [id number] [place] [address]- 5158 Jul, [facility] [place] [facility] [address] [id number] [place] [address]- 1597 Jul, [facility] [place] [facility] [address] [id number] [place] [address]- 6048 Jun, [facility] [place] [facility] [address] [id number] [place] [address]- 0196 Jun, [facility] [place] [facility] [address] [id number] [place] [address]- 6379 May, [facility] [place] [facility] [address] [id number] [place] [address]- 5514 May, [facility] [place] [facility] [address] [id number] [place] [address]- 5144 May, [facility] [place] [facility] [address] [id number] [place] [address]- 6249 May, [facility] [place] [facility] [address] [facility] [id number] [place] [address]- 0617 May, [facility] [place] [facility] [address] [id number] [place] [address]- 5183 May, [facility] [place] [facility] [address] [id number] [place] [address]- 2815 Apr, [facility] [place] [facility] [address] [id number] [place] [address]- 5120 Apr, [facility] [place] [facility] [address] [id number] [place] [address]- 6741 Feb, [facility] [place] [facility] [address] [facility] [id number] [place] [address]- 6250 15 Feb, 2014 [facility] [place] [facility] [address] [id number] [place] [address]- 7263 10 Feb, 2013 [facility] [place] [facility] [address] [id number] [place] [address]- 0748 10 Feb, 2014 [facility] [place] [facility] [address] [id number] [place] [address]- 2656 05 Feb, 2014 [facility] [place] [facility] [address] [id number] [place] [address]- 7213 05 Feb, 2014 [facility] [place] [facility] [address] [id number] [place] [address]- 5124 Jan, [facility] [place] [facility] [address] [id number] [place] [address]- 8250 Jan, [facility] [place] [facility] [address] [id number] [place] [address]- 1327 Jan, [facility] [place] [facility] [address] [id number] [place] [address]- 6062 Jan, [facility] [place] [facility] [address] [id number] [place] [address]- 9351 Jan, [facility] [place] [facility] [address] [id number] [place] [address]- 5079 Jan, [facility] [place] [facility] [address] [id number] [place] [address]- 1269 Dec, [facility] [place] [facility] [address] [id number] [place] [address]- 1415 Dec, [facility] [place] [facility] [address] [id number] [place] [address]- 3866 Nov, [facility] [place] [facility] [address] [id number] [place] [address]- 7752 Nov, [facility] [place] [facility] [address] [id number] [place] [address]- 4622 Nov, [facility] [place] [facility] [address] [id number] [place] [address]- 7874 Nov, [facility] [place] [facility] [address] [id number] [place] [address]- 8419 Nov, [facility] [place] [facility] [address] [id number] [place] [address]- 5583 Nov, [facility] [place] [facility] [address] [id number] [place] [address]- 4179 Nov, [facility] [place] [facility] [address] [id number] [place] [address]- 3208 Nov, [facility] [place] [facility] [address] [id number] [place] [address]- 3552 Nov, [facility] [place] [facility] [address] [id number] [place] [address]- 5940 Nov, [facility] [place] [facility] [address] [id number] [place] [address]- 1124 Nov, [facility] [place] [facility] [address] [id number] [place] [address]- 3402 Nov, [facility] [place] [facility] [address] [id number] [place] [address]- 9123 Nov, [facility] [place] [facility] [address] [id number] [place] [address]- 0612 October, [facility] [place] [facility] [address] [id number] [place] [address]- 4179 October, [facility] [place] [facility] [address] [id number] [address]- 1158 October, [facility] [place] [facility] [address] [id number] [place] [address]- 2202 October, [facility] [place] [facility] [address] [id number] [place] [address]- 4731 Sep, [facility] [place] [facility] [address] [id number] [place] [address]- 5743 Sep, [facility] [place] [facility] [address] [id number] [place] [address]- 1641 Sep, [facility] [place] [facility] [address] [id number] [place] [address]- 6857 Sep, [facility] [place] [facility] [address] [id number] [place] [address]- 2353 Aug, [facility] [place] [facility] [address] [id number] [place] [address]- 0283 Aug, [facility] [place] [facility] [address] [id number] [place] [address]- 4892 Jul, [facility] [place] [facility] [address] [id number] [place] [address]- 6020 Jul, [facility] [place] [facility] [address] [id number] [place] [address]- 1326 Jun, [facility] [place] [facility] [address] [id number] [place] [address]- 3290 Jun, [facility] [place] [facility] [address] [id number] [place] [address]- 1904 Mar, [facility] [place] [facility] [address] [id number] [place] [address]- 9993 Mar, [facility] [place] [facility] [address] [id number] [place] [address]- 3119 Mar, [facility] [place] [facility] [address] [id number] [place] [address]- 9168 Mar, [facility] [place] [facility] [address] [id number] [place] [address]- 4691 Mar, [facility] [place] [facility] [address] [id number] [place] [address]- 8920 Feb, [facility] [place] [facility] [address] [id number] [place] [address]- 0468 Feb, [facility] [place] [facility] [address] [id number] [place] [address]- 3451 Dec, [facility] [place] [facility] [address] [id number] [place] [address]- 2281 Nov, [facility] [address] [id number] [place] [address]- 9246 October, [facility] [address] [id number] [place] [address] 2546 Sep, [facility] [place] [facility] [address] [id number] [place] [address] 2546 Sep, [facility] [place] [facility] [address] [id number] [place] [address]- 4772 Aug, [facility] [place] [facility] [address] [id number] [place] [address]- 6249 Aug, [facility] [address] [id number] [place] [address]- 2171 Aug, [facility] [address] [id number] [place] [address]- 6420 Aug, [facility] [address] [id number] [place] [address]- 5857 Jun, [facility] [address] [id number] [place] [address]- 0650 Jun, [facility] [address] [id number] [place] [address] Jun, [facility] [address] [id number] [place] [address] May, [facility] [address] [id number] [place] [address] May, [facility] [address] [id number] [place] [address] Apr, [facility] [address] [id number] [place] [address] Apr, [facility] [address] [id number] [place] [address] Apr, [facility] [place] [facility] [address] [id number] [place] [address] Apr, [facility] [place] [facility] [address] [id number] [place] [address] Apr, [facility] [place] [facility] [address] [id number] [place] [address] Apr, [facility] [place] [facility] [address] [id number] [place] [address] Apr, [facility] [place] [facility] [address] [id number] [place] [address] Mar, [facility] [place] [facility] [address] [id number] [place] [address] 31 Mar, 2012 [facility] [place] [facility] [address] [id number] [place] [address] 18 Feb, 2012 [facility] [place] [facility] [address] [id number] [place] [address] 17 Feb, 2012 [facility] [place] [facility] [address] [id number] [place] [address] 13 Feb, 2012 [facility] [place] [facility] [address] [id number] [place] [address] 15 Jan, 2012 [facility] [place] [facility] [address] [id number] [place] [address] 14 Jan, 2012 [facility] [place] [facility] [address] [id number] [place] [address] Jan, [facility] [place] [facility] [address] [id number] [place] [address] Jan, [facility] [place] [facility] [address] [id number] [place] [address] Dec, [facility] [place] [facility] [address] [id number] [place] [address] Dec, [facility] [place] [facility] [address] [id number] [place] [address] 18 Dec, 2011 [facility] [address] [id number] [place] [address] 17 Dec, 2011 [facility] [place] [facility] [address] [id number] [place] [address] 10 Dec, 2011 [facility] [address] [id number] [place] [address] 14 Nov, 2011 [facility] [address] [id number] [place] [address] 14 Nov, 2011 [facility] [address] [id number] [place] [address] Nov, [facility] [address] [id number] [place] [address] Nov, [facility] [address] [id number] [place] [address] October, [facility] [address] [id number] [place] [address] October, [facility] [address] [id number] [place] [address] October, [facility] [address] [id number] [place] [address] October, [facility] [address] [id number] [place] [address] October, [facility] [address] [id number] [place] [address] Sep, [facility] [place] [facility] [address] [id number] [place] [address] Sep, [facility] [place] [facility] [address] [id number] [place] [address] Sep, [facility] [place] [facility] [address] [id number] [place] [address] Sep, [facility] [address] [id number] [place] [address] 03 Sep, 2011 [facility] [place] [facility] [address] [id number] [place] [address] 29 Aug, 2011 [facility] [place] [facility] [address] [id number] [place] [address] 28 Aug, 2011 [facility] [place] [facility] [address] [id number] [place] [address] 27 Aug, 2011 [facility] [place] [facility] [address] [id number] [place] [address] 26 Aug, 2011 [facility] [place] [facility] [address] [id number] [place] [address] 23 Aug, 2011 [facility] [place] [facility] [address] [id number] [place] [address] 20 Aug, 2011 [facility] [place] [facility] [address] [id number] [place] [address] 19 Aug, 2011 [facility] [place] [facility] [address] [id number] [place] [address] 17 Aug, 2011 [facility] [place] [facility] [address] [id number] [place] [address] 18 Jun, 2011 [facility] [place] [facility] [address] [id number] [place] [address] Jun, [facility] [place] [facility] [address] [id number] [place] [address] 11 Jun, 2011 [facility] [place] [facility] [address] [id number] [place] [address] 10 Jun, 2011 [facility] [place] [facility] [address] [id number] [place] [address] 06 Jun, 2011 [facility] [place] [facility] [address] [id number] [place] [address] 20 May, 2011 [facility] [place] [facility] [address] [id number] [address] Apr, [facility] [id number] [address] October, [facility] [id number] [address] May, [facility] [id number] [address] May, [facility] [address] [id number] [address] Apr, [facility] [id number] [address] Jan, [facility] [id number] [address] Dec, [facility] [id number] [address] Sep, [facility] [id number] [address] Sep, [facility] [id number] [address] Jul, [facility] [id number] [address] May, [facility] [id number] [address] Jan, IMMUNIZATIONS No Known Immunizations SOCIAL HISTORY Never Assessed REASON FOR VISIT side abdominal pain under rib cage, radiates to back and shoulder at times, when reaching with right hand shoulder cramps, first noticed about 1 week ago, same symptoms last year and contributes to her asthma-AHarrymanRN PLAN OF CARE Activity Details Follow Up 4 Weeks, prn Reason:back pain VITAL SIGNS Height 64 in 2017-08-17 Weight 259.6 lbs 2017-08-17 Temperature 97.9 degrees Fahrenheit 2017-08-17 Heart Rate 84 bpm 2017-08-17 Respiratory Rate 20 2017-08-17 BMI 44.56 kg/m2 2017-08-17 Blood pressure systolic 126 mmHg 2017-08-17 Blood pressure diastolic 78 mmHg 2017-08-17 MEDICATIONS Medication Instructions Dosage Frequency Start Date End Date Duration Status Omeprazole 20 MG TAKE ONE CAPSULE BY MOUTH ONCE DAILY 30 Active Albuterol Sulfate (2.5 MG/3ML) 0.083% inhale 3 milliliters (2.5 mg) by nebulization route 4 times per day PRN for wheezing or cough Aug, Active Spiriva Respimat 1.25 MCG/ACT Inhalation Once a day 2 puffs 24h Aug, 90 days Active Advair Diskus 250-50 MCG/DOSE Inhalation Twice a day 1 puff 12h Nov, 60 days Active Wellbutrin XL 150 MG Orally Once a day 1 tablet in the morning 24h Active Proventil HFA 108 (90 Base) MCG/ACT Inhalation every 4 hrs 2 puffs as needed 4h Feb, Active Losartan Potassium 25 MG TAKE ONE TABLET BY MOUTH ONCE DAILY 30 Active Tramadol HCl 50 MG Orally 1 tablet 3 times a day as needed 1 tablet 28 days Active Ibuprofen 800 MG Orally Three times a day 1 tablet 8h Active Hydrochlorothiazide 50 mg TAKE ONE TABLET BY MOUTH ONCE DAILY 30 Active Cyclobenzaprine HCl 5 MG TAKE ONE TABLET BY MOUTH TWICE DAILY 30 Active RESULTS No Results PROCEDURES Procedure Date Ordered Result Body Site X-RAY EXAM OF LOWER SPINE August 17, 2017 X-RAY EXAM OF THORACIC SPINE August 17, 2017 X-RAY EXAM OF NECK SPINE August 17, 2017 LIPID PANEL August 17, 2017 COMPREHEN METABOLIC PANEL August 17, 2017 Hemoglobin Test Send Out 0 dollar August 17, 2017 ASSAY THYROID STIM HORMONE August 17, 2017 COMPLETE CBC W/AUTO DIFF WBC August 17, 2017 INSTRUCTIONS MEDICATIONS ADMINISTERED No Known Medications [...]
--- OUTSIDE RECORDS SUMMARY | 2018-05-04 07:36 | XMS REPORT ---
Author Author JENNIFER CANCINO Organization [facility] Address [address] [place] [address] Care Team Providers Care [employer] Name Role Phone JENNIFER CANCINO Unavailable PROBLEMS Type Condition ICD9-CM Code NMG70-CH Code Onset Dates Condition Status SNOMED Code Problem Gastroesophageal reflux disease with esophagitis K21.0 Active 521790422 Problem Essential hypertension I10 Active 22894122 Problem Abnormal EKG R94.31 Active 121728481 Problem Right upper quadrant abdominal pain R10.11 Active 887885012 Problem Edema, unspecified type R60.9 Active 611678796 Problem Mild persistent asthma without complication J45.30 Active 599106338 Problem Esophageal abnormality K22.9 Active 90324226 Problem Hammer toe of right foot M20.41 Active 675399793 ALLERGIES No Information ENCOUNTERS Encounter Location Date Diagnosis [place] [id number] [place] [address] 85400- 3409 October, Abscess L02.91 [place] [id number] [place] [address] 92040- 9810 October, Cutaneous abscess of back excluding buttocks L02.212 and BMI 40.0-44.9, adult Z68.41 [place] [id number] [place] [address] 01353- 6539 October, [place] [id number] [place] [address] 09857- 4717 October, [facility] [address] 31111- 8463 Sep, [place] [id number] [place] [address] 64093- 9348 Sep, Abscess L02.91 [place] [address] 17525- 8510 Sep, Right upper quadrant abdominal pain R10.11 ; Mild persistent asthma without complication J45.30 and BMI 40.0-44.9, adult Z68.41 [place] [address] 27053- 8822 28 Aug, 2017 Abscess L02.91 and BMI 40.0-44.9, adult Z68.41 [place] [address] 91067- 0419 Aug, Edema, unspecified type R60.9 [place] [address] 36860- 2764 Aug, Right upper quadrant abdominal pain R10.11 ; Abnormal EKG R94.31 ; Esophageal abnormality K22.9 and BMI 40.0-44.9, adult Z68.41 [place] [address] 35762- 5181 Aug, Hammer toe of right foot M20.41 and Onychomycosis B35.1 [facility] [address] 70[address] -1631 Aug, Myalgia M79.1 [place] [address] 49535- 8281 Aug, [place] [address] 86913- 9883 Aug, Annual physical exam Z00.00 ; BMI 40.0-44.9, adult Z68.41 ; Mild persistent asthma without complication J45.30 ; Gastroesophageal reflux disease with esophagitis K21.0 ; Acute right-sided thoracic back pain M54.6 ; Trouble breathing R06.89 and Neck pain M54.2 [place] [id number] [place] [address] 07468- 5399 28 Jul, 2017 Mild persistent asthma without complication J45.30 [place] [address] 73045- 6533 Jul, Edema, unspecified type R60.9 [place] [id number] [place] [address] 50849- 2848 Jun, Edema, unspecified type R60.9 [place] [id number] [place] [address] 74898- 7051 Jun, Moderate persistent asthma with exacerbation J45.41 [place] [id number] [place] [address] 13551- 5889 May, Edema, unspecified type R60.9 [place] [id number] [place] [address] 93617- 9067 May, Moderate persistent asthma with exacerbation J45.41 and Hammer toe of right foot M20.41 [place] [id number] [place] [address] 37062- 5000 May, Moderate persistent asthma without complication J45.40 ; Dysfunction of left eustachian tube H69.82 and BMI 45.0-49.9, adult Z68.42 [place] [id number] [place] [address] 32285- 8254 Apr, Edema, unspecified type R60.9 [place] [id number] [place] [address] 44753- 6964 Mar, Edema, unspecified type R60.9 [place] [id number] [place] [address] 73101- 7569 Feb, Edema, unspecified type R60.9 [place] [id number] [place] [address] 53388- 4885 Jan, Edema, unspecified type R60.9 [place] [id number] [place] [address] 81319- 5015 Jan, Mild persistent asthma without complication J45.30 [place] [id number] [place] [address] 05214- 6397 Dec, Edema, unspecified type R60.9 [facility] [id number] [place] [address] 19201- 2293 Nov, Edema, unspecified type R60.9 and Essential hypertension I10 [facility] [id number] [place] [address] 87594- 4441 October, Pain in left knee M25.562 [place] [address] 51414- 1166 October, Pain in left knee M25.562 [place] [id number] [place] [address] 71797- 7476 October, [place] [address] 48202- 9410 Sep, [place] [id number] [place] [address] 59457- 6127 Sep, Mild persistent asthma without complication J45.30 [place] [id number] [place] [address] 75684- 6966 Sep, Pain in left knee M25.562 [place] [id number] [place] [address] 99038- 5485 Aug, Acute nasopharyngitis J00 and Seasonal allergic rhinitis due to pollen J30.1 [place] [id number] [place] [address] 53768- 3633 Aug, [place] [id number] [place] [address] 44011- 1268 Aug, Arthralgia, unspecified joint M25.50 and Pain in left knee M25.562 [place] [id number] [place] [address] 26409- 8851 Aug, Mild persistent asthma without complication J45.30 [place] [id number] [place] [address] 47466- 2338 Jul, Mild persistent asthma without complication J45.30 [facility] [address], [place] [address] 13 Jul, 2016 Pain in left knee M25.562 [facility] [address] [place] [address] 61931- 3409 14 Jun, 2016 [facility] WALK IN [facility] [id number] [place] [address] 65258 -8975 Jun, [facility] [id number] [place] [address] 95233- 8416 Jun, Mild persistent asthma without complication J45.30 [place] [id number] [place] [address] 08483- 1035 May, [place] [id number] [place] [address] 29719- 5666 Apr, Restrictive lung disease J98.4 [place] [id number] [place] [address] 87899- 8918 Apr, [facility] [id number] [place] [address] 72336- 7822 Apr, Mild persistent asthma without complication J45.30 [facility] WALK IN [facility] [address] [place] [address] 59267 -8664 Mar, Sore throat J02.9 and Post-nasal drainage R09.82 [place] [address] [place] [address] 78487- 1313 Mar, [place] [address] [place] [address] 00297- 4818 Feb, [place] [address] [place] [address] 35234- 3154 Feb, Mild persistent asthma without complication J45.30 [place] [address] [place] [address] 66414- 1657 09 Feb, 2016 Arthralgia, unspecified joint M25.50 [place] [address], [place] [address]- 5251 Feb, Edema, unspecified type R60.9 ; Arthralgia, unspecified joint M25.50 ; Mild persistent asthma without complication J45.30 ; Essential hypertension I10 ; Gastroesophageal reflux disease without esophagitis K21.9 and Major depressive disorder with single episode, remission status unspecified F32.9 [facility] [address], [place] [address]- 0813 Jan, Edema, unspecified type R60.9 ; Essential hypertension I10 ; Mild persistent asthma without complication J45.30 ; Gastroesophageal reflux disease with esophagitis K21.0 ; Arthralgia, unspecified joint M25.50 and Major depressive disorder with single episode, remission status unspecified F32.9 [facility] [address], [place] [address]- 5054 Jan, [facility] [id number] [place] [address] 17215- 9461 Dec, [facility] [address], [place] [address]- 2634 Dec, [facility] [address], [place] [address]- 9935 Dec, [facility] [address], [place] [address]- 0235 Nov, Bilateral edema of lower extremity R60.0 [facility] [address], [place] [address]- 3918 Nov, Bilateral edema of lower extremity R60.0 [facility] WALK IN [facility] [address], [place] [address] -1061 Nov, [facility] [address], [place] [address]- 3944 Nov, [facility] [address], [place] [address]- 5445 October, [facility] [id number] [place] [address] 58213- 6825 Sep, [facility] [id number] [place] [address] 62842- 0459 Aug, Acute sinusitis J01.90 [facility] [id number] [place] [address] 60050- 0431 Aug, [facility] [address] 30342- 2394 Aug, [facility] [id number] [place] [address] 72207- 5347 Jul, [facility] [id number] [place] [address] 19937- 7141 Jul, Pharyngitis J02.9 [facility] [id number] [place] [address] 25266- 0982 Jul, [facility] [address] [place] [address] 66860- 6805 Jun, Pain in left knee M25.562 [facility] [id number] [place] [address] 13868- 9883 Jun, [facility] [address] [place] [address] 15349 -2633 May, Upper respiratory symptom R09.89 [facility] [id number] [place] [address] 61945- 3345 May, [facility] [address] [place] [address] 47412- 5939 Apr, Costochondritis M94.0 and Knee pain, left M25.562 [facility] [address] [place] [address] 87728- 5391 Apr, [facility] [address] [place] [address] 47762- 8466 14 Mar, 2015 Eustachian tube dysfunction, left H69.82 [facility] [id number] [place] [address]- 0570 Mar, [facility] [id number] [place] [address]- 7826 Mar, [facility] [id number] [place] [address]- 0489 Mar, [facility] [id number] [address]- 2920 Feb, [facility] [id number] [place] [address]- 9368 Feb, [facility] [id number] [place] [address] 43394- 3203 Feb, [facility] [id number] [place] [address]- 1768 Jan, Asthma 493.90 [facility] [address], [place] [address]- 1363 Dec, [facility] [address], [place] [address]- 2215 Dec, [facility] [address], [place] [address]- 2767 Dec, [facility] [address], [place] [address]- 1954 Dec, [facility] [address], [place] [address]- 6848 Dec, Asthma, unspecified, unspecified status 493.90 [facility] [address], [place] [address]- 5215 Nov, [facility] [address] [address]- 9685 Nov, Asthma, unspecified, unspecified status 493.90 [facility] [address], [place] [address]- 7871 October, Asthma, unspecified, unspecified status 493.90 [facility] [address], [place] [address]- 8460 October, [facility] [address], [place] [address]- 8364 October, Contact dermatitis 692.9 and Candidiasis of skin 112.3 [facility] [id number] [place] [address] 55551- 8804 Sep, [facility] [address], [place] [address]- 0231 Sep, [facility] [address], [place] [address]- 3523 Aug, [facility] [address], [place] [address]- 2314 Aug, [facility] [address], [place] [address]- 5321 Aug, [facility] [address], [place] [address]- 8154 Aug, [facility] [address], [place] [address]- 5570 Jul, [facility] [address], [place] [address]- 9604 Jul, [facility] [address] 6560 Jun, [facility] [id number] 3039 Jun, [facility] [address], [place] [address]- 5906 May, [facility] [id number] 6276 May, [facility] [address] [address]- 9804 May, [facility] [place] [facility] [address] [id number] [place] [address]- 9948 May, [facility] [place] [facility] [address] [id number] [place] [address]- 2860 May, [facility] [place] [facility] [address] [id number] [place] [address]- 2902 May, [facility] [place] [facility] [address] [id number] [place] [address]- 8725 Apr, [facility] [place] [facility] [address] [id number] [place] [address]- 2949 Apr, [facility] [place] [facility] [address] [id number] [place] [address]- 4062 15 Feb, 2014 [facility] [place] [facility] [address] [id number] [place] [address]- 9058 15 Feb, 2014 [facility] [place] [facility] [address] [id number] [place] [address]- 7054 10 Feb, 2014 [facility] [place] [facility] [address] [id number] [place] [address]- 3233 10 Feb, 2014 [facility] [place] [facility] [address] [id number] [place] [address]- 2599 05 Feb, 2014 [facility] [place] [facility] [address] [id number] [place] [address]- 9577 Feb, [facility] [place] [facility] [address] [id number] [place] [address]- 3378 Jan, [facility] [place] [facility] [address] [id number] [place] [address]- 4351 Jan, [facility] [place] [facility] [address] [id number] [place] [address]- 9526 Jan, [facility] [place] [facility] [address] [id number] [place] [address]- 1689 Jan, [facility] [place] [facility] [address] [id number] [place] [address]- 5541 Jan, [facility] [place] [facility] [address] [id number] [place] [address]- 5988 Jan, [facility] [place] [facility] [address] [id number] [place] [address]- 8486 Dec, [facility] [place] [facility] [address] [id number] [place] [address]- 1819 Dec, [facility] [place] [facility] [address] [id number] [place] [address]- 3495 Nov, [facility] [place] [facility] [address] [id number] [place] [address]- 8527 Nov, [facility] [place] [facility] [address] [id number] [place] [address]- 0867 Nov, [facility] [place] [facility] [address] [id number] [place] [address]- 9767 Nov, [facility] [place] [facility] [address] [id number] [place] [address]- 9201 Nov, [facility] [place] [facility] [address] [id number] [place] [address]- 1042 Nov, [facility] [place] [facility] [address] [id number] [place] [address]- 8262 Nov, [facility] [place] [facility] [address] [id number] [place] [address]- 5276 Nov, [facility] [place] [facility] [address] [id number] [place] [address]- 7754 Nov, [facility] [place] [facility] [address] [id number] [place] [address]- 8073 Nov, [facility] [place] [facility] [address] [id number] [place] [address]- 3501 Nov, [facility] [place] [facility] [address] [id number] [place] [address]- 1552 Nov, [facility] [place] [facility] [address] [id number] [place] [address]- 1122 Nov, [facility] [place] [facility] [address] [id number] [place] [address]- 4826 October, [facility] [place] [facility] [address] [id number] [place] [address]- 1887 October, [facility] [place] [facility] [address] [id number] [place] [address]- 9683 October, [facility] [place] [facility] [address] [id number] [place] [address]- 6934 October, [facility] [place] [facility] [address] [id number] [place] [address]- 3106 Sep, [facility] [place] [facility] [address] [id number] [place] [address]- 1795 Sep, [facility] [place] [facility] [address] [id number] [place] [address]- 8614 Sep, [facility] [place] [facility] [address] [id number] [place] [address]- 2495 Sep, [facility] [place] [facility] [address] [id number] [place] [address]- 4620 Aug, [facility] [place] [facility] [address] [id number] [place] [address]- 3062 Aug, [facility] [place] [facility] [address] [id number], [place] [address]- 1601 Jul, [facility] [place] [facility] [address] [id number] [place] [address]- 8240 Jul, [facility] [place] [facility] [address] [id number] [place] [address]- 8435 Jun, [facility] [place] [facility] [address] [id number] [place] [address]- 6677 Jun, [facility] [place] [facility] [address] [id number] [place] [address]- 1880 Mar, [facility] [address] [id number] [place] [address]- 1187 Mar, [facility] [address] [id number] [place] [address]- 0698 Mar, [facility] [address] [id number] [place] [address]- 2894 Mar, [facility] [address] [id number] [place] [address]- 1026 Mar, [facility] [address] [id number] [place] [address]- 9084 Feb, [facility] [address] [id number] [place] [address]- 6615 Feb, [facility] [address] [id number] [place] [address]- 4832 Dec, [facility] [address] [id number] [place] [address]- 1431 Nov, [facility] [address] [id number] [place] [address]- 3587 October, [facility] [address] [id number] [place] [address]- 7292 Sep, [facility] [place] [facility] [address] [id number] [place] [address]- 0494 Sep, [facility] [address] [id number] [place] [address]- 2005 Aug, [facility] [place] [facility] [address] [id number] [place] [address]- 4440 Aug, [facility] [place] [facility] [address] [id number] [place] [address] Aug, [facility] [place] [facility] [address] [id number] [place] [address] Aug, [facility] [place] [facility] [address] [id number] [place] [address] 14 Jun, 2012 [facility] [place] [facility] [address] [id number] [place] [address] Jun, [facility] [place] [facility] [address] [id number] [place] [address] Jun, [facility] [place] [facility] [address] [id number] [place] [address] May, [facility] [place] [facility] [address] [id number] [place] [address] May, [facility] [place] [facility] [address] [id number] [place] [address] Apr, [facility] [place] [facility] [address] [id number] [place] [address] Apr, [facility] [place] [facility] [address] [id number] [place] [address] Apr, [facility] [place] [facility] [address] [id number] [place] [address] Apr, [facility] [place] [facility] [address] [facility] [id number], [place] [address] Apr, [facility] [place] [facility] [address] [facility] [id number], [place] [address] Apr, [facility] [place] [facility] [address] [id number], [place] [address] Apr, [facility] [place] [facility] [address] [id number] [place] [address] Mar, [facility] [place] [facility] [address] [id number] [place] [address] Mar, [facility] [place] [facility] [address] [facility] [id number] [address] [address] 18 Feb, 2012 [facility] [place] [facility] [address] [id number], [place] [address] 17 Feb, 2012 [facility] [place] [facility] [address] [id number] [place] [address] 13 Feb, 2012 [facility] [place] [facility] [address] [id number] [place] [address] 15 Jan, 2012 [facility] [place] [facility] [address] [id number] [place] [address] Jan, [facility] [place] [facility] [address] [id number] [place] [address] Jan, [facility] [place] [facility] [address] [id number] [place] [address] Jan, [facility] [place] [facility] [address] [id number] [place] [address] Dec, [facility] [place] [facility] [address] [id number] [place] [address] Dec, [facility] [place] [facility] [address] [id number] [place] [address] 18 Dec, 2011 [facility] [place] [facility] [address] [id number] [place] [address] 17 Dec, 2011 [facility] [place] [facility] [address] [id number] [place] [address] Dec, [facility] [place] [facility] [address] [id number] [place] [address] Nov, [facility] [place] [facility] [address] [id number] [place] [address] Nov, [facility] [place] [facility] [address] [id number] [place] [address] Nov, [facility] [place] [facility] [address] [id number] [place] [address] 08 Nov, 2011 [facility] [place] [facility] [address] [id number] [place] [address] October, [facility] [place] [facility] [address] [id number] [place] [address] October, [facility] [address] [id number] [place] [address] October, [facility] [place] [facility] [address] [id number] [place] [address] October, [facility] [address] [id number] [place] [address] October, [facility] [place] [facility] [address] [id number] [place] [address] Sep, [facility] [place] [facility] [address] [id number] [place] [address] Sep, [facility] [place] [facility] [address] [id number] [place] [address] Sep, [facility] [place] [facility] [address] [id number] [place] [address] Sep, [facility] [address] [id number] [place] [address] Sep, [facility] [place] [facility] [address] [id number] [place] [address] 29 Aug, 2011 [facility] [place] [facility] [address] [id number] [place] [address] 28 Aug, 2011 [facility] [place] [facility] [address] [id number] [place] [address] 27 Aug, 2011 [facility] [place] [facility] [address] [id number] [place] [address] 26 Aug, 2011 [facility] [place] [facility] [address] [id number] [place] [address] 23 Aug, 2011 [facility] [place] [facility] [address] [id number] [place] [address] 20 Aug, 2011 [facility] [place] [facility] [address] [id number] [place] [address] 19 Aug, 2011 [facility] [place] [facility] [address] [id number] [place] [address] 17 Aug, 2011 [facility] [place] [facility] [address] [id number] [place] [address] 18 Jun, 2011 [facility] [place] [facility] [address] [id number] [place] [address] Jun, [facility] [place] [facility] [address] [id number] [place] [address] Jun, [facility] [place] [facility] [address] [id number] [place] [address] Jun, [facility] [place] [facility] [address] [id number] [place] [address] Jun, [facility] [place] [facility] [address] [id number] [place] [address] May, [facility] [place] [facility] [address] [id number] [place] [address] Apr, [facility] [place] [facility] [address] [id number] [place] [address] October, [facility] [place] [facility] [address] [id number] [place] [address] May, [facility] [place] [facility] [address] [id number] [place] [address] 24 May, 2010 [facility] [place] [facility] [address] [id number] [place] [address] 29 Apr, 2010 [facility] [place] [facility] [address] [id number] [place] [address] Jan, [facility] [place] [facility] [address] [id number] [place] [address] 14 Dec, 2009 [facility] [place] [facility] [address] [id number] [place] [address] Sep, [facility] [place] [facility] [address] [facility] [id number] [place] [address] Sep, [facility] [address] [facility] [id number], [place] [address] Jul, [facility] [address] [facility] [id number], [place] [address] May, [facility] [address] [facility] [id number], [place] [address] Jan, IMMUNIZATIONS No Known Immunizations SOCIAL HISTORY [...]
--- OUTSIDE RECORDS SUMMARY | 2018-05-04 07:38 | XMS REPORT ---
Author Author WILI SCHULER Organization [facility] Address [address] [place] [address] Care Team Providers Care Senior Marketing Coordinator Name Role Phone WILI SCHULER Unavailable PROBLEMS Type Condition ICD9-CM Code [id number] Code Onset Dates Condition Status SNOMED Code Problem Mild persistent asthma without complication J45.30 Active 776218079 Problem Edema, unspecified type R60.9 Active 915635567 Problem Gastroesophageal reflux disease with esophagitis K21.0 Active 471425806 Problem Essential hypertension I10 Active 33756305 Problem Moderate persistent asthma with exacerbation J45.41 Active 598718258 Problem Other chronic pain G89.29 Active 63691525 Problem Esophageal abnormality K22.9 Active 01513183 Problem Hammer toe of right foot M20.41 Active 256279919 Problem Abnormal EKG R94.31 Active 051562807 Problem Right upper quadrant abdominal pain R10.11 Active 605186900 ALLERGIES Substance Reaction Event Type Date Status Naprosyn itching Drug Allergy May, Active Micardis Unknown Drug Allergy May, Active Hydrocodone Bitartrate itching Drug Allergy May, Active Celebrex swelling Drug Allergy May, Active Doxycycline scalp rash Drug Allergy May, Active ENCOUNTERS Encounter Location Date Diagnosis [facility] [id number] [address] Nov, Moderate persistent asthma with exacerbation J45.41 [facility] [id number] [place] [address] 58453- 8713 Nov, Low back pain M54.5 and Other chronic pain G89.29 [place] [id number], [place] [address] October, Abscess L02.91 [place] [id number] [place] [address] 88274- 5465 October, Cutaneous abscess of back excluding buttocks L02.212 and BMI 40.0-44.9, adult Z68.41 [address] [address] [address]- [address]40 October, [place] [address] 56147- 0475 October, [place] [address] 19419- 0289 Sep, [place] [address] 82879- 5870 Sep, Abscess L02.91 [place] [address] 08091- 3858 Sep, Right upper quadrant abdominal pain R10.11 ; Mild persistent asthma without complication J45.30 and BMI 40.0-44.9, adult Z68.41 [place] [address] 57494- 5659 Aug, Abscess L02.91 and BMI 40.0-44.9, adult Z68.41 [place] [id number] [place] [address] 16790- 1186 Aug, Edema, unspecified type R60.9 [place] [id number] [place] [address] 36171- 3466 Aug, Right upper quadrant abdominal pain R10.11 ; Abnormal EKG R94.31 ; Esophageal abnormality K22.9 and BMI 40.0-44.9, adult Z68.41 [place] [id number] [place] [address] 63796- 9705 Aug, Hammer toe of right foot M20.41 and Onychomycosis B35.1 [facility] [id number] [place] [address] 11130 -1426 Aug, Myalgia M79.1 [place] [id number] [place] [address] 79894- 5324 Aug, [place] [address] 56594- 5415 Aug, Annual physical exam Z00.00 ; BMI 40.0-44.9, adult Z68.41 ; Mild persistent asthma without complication J45.30 ; Gastroesophageal reflux disease with esophagitis K21.0 ; Acute right-sided thoracic back pain M54.6 ; Trouble breathing R06.89 and Neck pain M54.2 [place] [address] 28839- 1757 28 Jul, 2017 Mild persistent asthma without complication J45.30 [place] [address] 64217- 4108 Jul, Edema, unspecified type R60.9 [place] [address] 62307- 7572 Jun, Edema, unspecified type R60.9 [place] [address] 78790- 9802 Jun, Moderate persistent asthma with exacerbation J45.41 [place] [address] 07840- 6168 May, Edema, unspecified type R60.9 [place] [id number] [place] [address] 23801- 4578 May, Moderate persistent asthma with exacerbation J45.41 and Hammer toe of right foot M20.41 [place] [id number] [place] [address] 38737- 2708 May, Moderate persistent asthma without complication J45.40 ; Dysfunction of left eustachian tube H69.82 and BMI 45.0-49.9, adult Z68.42 [place] [id number] [place] [address] 76351- 5318 Apr, Edema, unspecified type R60.9 [place] [address], [place] [address] 57[address] Mar, Edema, unspecified type R60.9 [facility] [id number] [place] [address] 60717- 4196 Feb, Edema, unspecified type R60.9 [facility] [id number], [place] [address] 6688 Jan, Edema, unspecified type R60.9 [facility] [id number] [place] [address] 76551- 9917 Jan, Mild persistent asthma without complication J45.30 [place] [id number] [place] [address] 37625- 8526 Dec, Edema, unspecified type R60.9 [place] [id number] [place] [address] 15732- 1497 Nov, Edema, unspecified type R60.9 and Essential hypertension I10 [place] [id number] [place] [address] 75573- 4998 October, Pain in left knee M25.562 [place] [id number] [place] [address] 92160- 4316 October, Pain in left knee M25.562 [place] [address] [place] [address] 66452- 2091 October, [facility] [id number] [place] [address] 66971- 0169 Sep, [facility] [address] [place] [address] 26293- 9324 Sep, Mild persistent asthma without complication J45.30 [facility] [address], [place] [address]- 8391 Sep, Pain in left knee M25.562 [facility] [id number] [place] [address] 10624- 3770 23 Aug, 2016 Acute nasopharyngitis J00 and Seasonal allergic rhinitis due to pollen J30.1 [facility] [id number] [place] [address] 91657- 1171 16 Aug, 2016 [facility] [id number] [place] [address] 35281- 1917 13 Aug, 2016 Arthralgia, unspecified joint M25.50 and Pain in left knee M25.562 [facility] [id number] [place] [address] 43518- 3243 08 Aug, 2016 Mild persistent asthma without complication J45.30 [place] [address] 98348- 3532 28 Jul, 2016 Mild persistent asthma without complication J45.30 [place] [id number] [place] [address] 51606- 6051 13 Jul, 2016 Pain in left knee M25.562 [place] [id number] [place] [address] 30903- 4843 Jun, [facility] [id number] [place] [address] 98315 -1875 Jun, [facility] [id number] [place] [address] 43119- 2298 Jun, Mild persistent asthma without complication J45.30 [place] [id number] [place] [address] 63376- 8815 May, [place] [id number] [place] [address] 60550- 6059 Apr, Restrictive lung disease J98.4 [place] [id number] [place] [address] 49624- 8964 Apr, [place] [id number] [place] [address] 69849- 1588 Apr, Mild persistent asthma without complication J45.30 [facility] [address] [place] [address] Mar, Sore throat J02.9 and Post-nasal drainage R09.82 [facility] [id number] [place] [address] 38867- 0343 Mar, [facility] [address], [place] [address]- 6176 Feb, [facility] [id number] [place] [address] 19274- 7046 Feb, Mild persistent asthma without complication J45.30 [place] [address] [place] [address] 51801- 9770 Feb, Arthralgia, unspecified joint M25.50 [place] [address], [place] [address]- 3019 Feb, Edema, unspecified type R60.9 ; Arthralgia, unspecified joint M25.50 ; Mild persistent asthma without complication J45.30 ; Essential hypertension I10 ; Gastroesophageal reflux disease without esophagitis K21.9 and Major depressive disorder with single episode, remission status unspecified F32.9 [place] [address] [place] [address] 97885- 0366 Jan, Edema, unspecified type R60.9 ; Essential hypertension I10 ; Mild persistent asthma without complication J45.30 ; Gastroesophageal reflux disease with esophagitis K21.0 ; Arthralgia, unspecified joint M25.50 and Major depressive disorder with single episode, remission status unspecified F32.9 [place] [address], [place] [address]- 4081 Jan, [place] [address] [place] [address] 79282- 6939 Dec, [place] [address], [place] [address]- 1207 Dec, [place] [address] [place] [address] 56724- 5941 Dec, [facility] [address], [place] [address]- 0333 Nov, Bilateral edema of lower extremity R60.0 [facility] [address], [place] [address]- 1346 Nov, Bilateral edema of lower extremity R60.0 [facility] [address], [place] [address] -9206 Nov, [facility] [id number] [address]- 7622 Nov, [facility] [address] [place] [address] 88396- 0359 October, [facility] [id number] [place] [address] 14291- 2101 Sep, [facility] [id number] [place] [address] 73849- 0775 Aug, Acute sinusitis J01.90 [facility] [address], [place] [address]- 8507 Aug, [facility] [address], [place] [address]- 7251 Aug, [facility] [address], [place] [address]- 2144 Jul, [facility] [address], [place] [address]- 0433 Jul, Pharyngitis J02.9 [facility] [address], [place] [address]- 4346 Jul, [facility] [address], [place] [address]- 2546 Jun, Pain in left knee M25.562 [facility] [address], [place] [address]- 0769 Jun, [facility] [address], [place] [address] -1676 May, Upper respiratory symptom R09.89 [facility] [id number] [place] [address] 35433- 2637 May, [facility] [id number] [place] [address] 96627- 6840 Apr, Costochondritis M94.0 and Knee pain, left M25.562 [facility] [id number] [place] [address] 60112- 4157 Apr, [facility] [id number] [place] [address] 58535- 0508 Mar, Eustachian tube dysfunction, left H69.82 [facility] [id number] [place] [address] 34732- 2664 Mar, [facility] [id number] [place] [address] 02029- 9193 Mar, [facility] [id number] [place] [address] 10596- 0740 Mar, [facility] [id number] [place] [address] 19531- 1266 Feb, [facility] [id number] [place] [address] 10414- 7106 Feb, [facility] [id number] [place] [address] 88332- 7658 Feb, [facility] [id number] [place] [address] 93593- 6324 Jan, Asthma 493.90 [facility] [id number] [place] [address] 92112- 6768 Dec, [facility] [id number] [place] [address] 25302- 3220 Dec, [facility] [id number] [place] [address] 01898- 2775 Dec, [facility] [address], [place] [address]- 3605 Dec, [facility] [address], [place] [address]- 2756 Dec, Asthma, unspecified, unspecified status 493.90 [facility] [address], [place] [address]- 5086 Nov, [facility] [address], [place] [address]- 7126 Nov, Asthma, unspecified, unspecified status 493.90 [facility] [id number] [place] [address] 40991- 3336 October, Asthma, unspecified, unspecified status 493.90 [facility] [id number] [place] [address] 81346- 5616 October, [facility] [address], [place] [address]- 6169 October, Contact dermatitis 692.9 and Candidiasis of skin 112.3 [facility] [address], [place] [address]- 6792 Sep, [facility] [address], [place] [address]- 9037 Sep, [facility] [address], [place] [address]- 7084 Aug, [facility] [address] 4172 Aug, [facility] [address] 0151 Aug, [facility] [address], [place] [address]- 1913 Aug, [facility] [address], [place] [address]- 4779 Jul, [facility] [place] [facility] [address] [id number] [place] [address]- 1725 Jul, [facility] [place] [facility] [address] [id number] [place] [address]- 5646 Jun, [facility] [place] [facility] [address] [id number] [place] [address]- 5260 Jun, [facility] [place] [facility] [address] [id number] [place] [address]- 5133 May, [facility] [place] [facility] [address] [id number] [place] [address]- 8571 May, [facility] [place] [facility] [address] [id number] [place] [address]- 5610 May, [facility] [place] [facility] [address] [id number] [place] [address]- 4826 May, [facility] [place] [facility] [address] [id number] [place] [address]- 8512 May, [facility] [place] [facility] [address] [id number] [place] [address]- 7643 May, [facility] [place] [facility] [address] [id number] [place] [address]- 4502 Apr, [facility] [place] [facility] [address] [id number] [place] [address]- 4725 Apr, [facility] [place] [facility] [address] [id number] [place] [address]- 5937 15 Feb, 2014 [facility] [place] [facility] [address] [id number] [place] [address]- 2541 15 Feb, 2014 [facility] [place] [facility] [address] [id number] [place] [address]- 2846 Feb, [facility] [place] [facility] [address] [id number] [place] [address]- 2545 Feb, [facility] [place] [facility] [address] [id number] [place] [address]- 0737 Feb, [facility] [place] [facility] [address] [id number] [place] [address]- 6116 Feb, [facility] [place] [facility] [address] [id number] [place] [address]- 9185 Jan, [facility] [place] [facility] [address] [id number] [place] [address]- 3317 Jan, [facility] [place] [facility] [address] [id number] [place] [address]- 9602 Jan, [facility] [place] [facility] [address] [id number] [place] [address]- 9316 Jan, [facility] [place] [facility] [address] [id number] [place] [address]- 9371 Jan, [facility] [place] [facility] [address] [id number] [place] [address]- 2953 Jan, [facility] [place] [facility] [address] [id number] [place] [address]- 3693 Dec, [facility] [place] [facility] [address] [id number] [place] [address]- 5259 Dec, [facility] [place] [facility] [address] [id number] [place] [address]- 5949 Nov, [facility] [place] [facility] [address] [id number] [place] [address]- 8701 Nov, [facility] [place] [facility] [address] [id number] [place] [address]- 3625 Nov, [facility] [place] [facility] [address] [id number] [place] [address]- 2357 Nov, [facility] [place] [facility] [address] [id number] [place] [address]- 4917 Nov, [facility] [place] [facility] [address] [id number] [place] [address]- 0720 Nov, [facility] [place] [facility] [address] [id number] [place] [address]- 3246 Nov, [facility] [place] [facility] [address] [id number] [place] [address]- 6169 Nov, [facility] [place] [facility] [address] [id number] [place] [address]- 7912 Nov, [facility] [place] [facility] [address] [id number] [place] [address]- 2018 Nov, [facility] [place] [facility] [address] [id number] [place] [address]- 8859 Nov, [facility] [place] [facility] [address] [id number] [place] [address]- 1219 Nov, [facility] [place] [facility] [address] [id number] [place] [address]- 9870 Nov, [facility] [place] [facility] [address] [id number] [place] [address]- 4685 October, [facility] [place] [facility] [address] [id number] [place] [address]- 5540 October, [facility] [place] [facility] [address] [id number] [place] [address]- 7923 October, [facility] [place] [facility] [address] [id number] [place] [address]- 5465 October, [facility] [place] [facility] [address] [id number] [place] [address]- 9103 Sep, [facility] [place] [facility] [address] [id number] [place] [address]- 5941 Sep, [facility] [place] [facility] [address] [id number] [place] [address]- 1536 Sep, [facility] [place] [facility] [address] [id number] [place] [address]- 0409 Sep, [facility] [place] [facility] [address] [id number] [address]- 9106 Aug, [facility] [place] [facility] [address] [id number] [place] [address]- 7486 Aug, [facility] [place] [facility] [address] [id number] [place] [address]- 4679 Jul, [facility] [place] [facility] [address] [id number] [place] [address]- 2532 Jul, [facility] [place] [facility] [address] [id number] [place] [address]- 5751 Jun, [facility] [place] [facility] [address] [id number] [place] [address]- 4214 Jun, [facility] [place] [facility] [address] [id number] [place] [address]- 5120 Mar, [facility] [place] [facility] [address] [id number] [place] [address]- 7811 Mar, [facility] [place] [facility] [address] [id number] [place] [address]- 4288 Mar, [facility] [place] [facility] [address] [id number] [place] [address]- 5196 Mar, [facility] [place] [facility] [address] [facility] [id number] [place] [address]- 9237 Mar, [facility] [place] [facility] [address] [id number] [place] [address]- 1134 Feb, [facility] [place] [facility] [address] [id number] [place] [address]- 3023 Feb, [facility] [place] [facility] [address] [id number] [place] [address]- 6382 Dec, [facility] [place] [facility] [address] [id number] [place] [address]- 0242 Nov, [facility] [place] [facility] [address] [id number] [place] [address]- 6262 October, [facility] [place] [facility] [address] [id number] [place] [address]- 3323 Sep, [facility] [place] [facility] [address] [id number] [place] [address]- 2246 Sep, [facility] [place] [facility] [address] [id number] [place] [address]- 4953 29 Aug, 2012 [facility] [place] [facility] [address] [id number] [place] [address]- 6209 28 Aug, 2012 [facility] [place] [facility] [address] [id number] [place] [address]- 6798 Aug, [facility] [place] [facility] [address] [id number] [place] [address]- 2989 Aug, [facility] [address] [id number] [place] [address]- 6746 Jun, [facility] [address] [id number] [place] [address]- 0529 Jun, [facility] [address] [id number] [place] [address]- 1353 Jun, [facility] [address] [id number] [place] [address]- 1745 May, [facility] [place] [facility] [address] [id number] [place] [address] May, [facility] [place] [facility] [address] [id number] [place] [address] Apr, [facility] [place] [facility] [address] [id number] [place] [address] Apr, [facility] [place] [facility] [address] [id number] [place] [address] Apr, [facility] [place] [facility] [address] [id number] [place] [address] Apr, [facility] [place] [facility] [address] [id number] [place] [address] Apr, [facility] [place] [facility] [address] [id number] [place] [address] Apr, [facility] [place] [facility] [address] [id number] [place] [address] Apr, [facility] [place] [facility] [address] [id number] [place] [address] Mar, [facility] [place] [facility] [address] [id number] [place] [address] Mar, [facility] [place] [facility] [address] [id number] [place] [address] Feb, [facility] [place] [facility] [address] [id number] [place] [address] 17 Feb, 2012 [facility] [place] [facility] [address] [id number] [place] [address] Feb, [facility] [place] [facility] [address] [id number] [place] [address] Jan, [facility] [place] [facility] [address] [id number] [place] [address] Jan, [facility] [place] [facility] [address] [id number] [place] [address] Jan, [facility] [place] [facility] [address] [id number] [place] [address] Jan, [facility] [place] [facility] [address] [id number], [place] [address] Dec, [facility] [place] [facility] [address] [id number] [place] [address] Dec, [facility] [place] [facility] [address] [id number] [place] [address] Dec, [facility] [place] [facility] [address] [id number] [place] [address] Dec, [facility] [place] [facility] [address] [id number] [place] [address] 10 Dec, 2011 [facility] [address] [id number] [place] [address] Nov, [facility] [address] [id number] [place] [address] 14 Nov, 2011 [facility] [address] [id number] [place] [address] Nov, [facility] [address] [id number] [place] [address] Nov, [facility] [address] [id number] [place] [address] October, [facility] [address] [id number] [place] [address] October, [facility] [address] [id number] [place] [address] October, [facility] [address] [id number] [place] [address] October, [facility] [address] [id number] [place] [address] October, [facility] [address] [id number] [place] [address] Sep, [facility] [address] [id number] [place] [address] Sep, [facility] [address] [id number] [place] [address] Sep, [facility] [place] [facility] [address] [id number] [place] [address] Sep, [facility] [place] [facility] [address] [id number] [place] [address] Sep, [facility] [address] [id number] [place] [address] Aug, [facility] [place] [facility] [address] [id number] [place] [address] 28 Aug, 2011 [facility] [place] [facility] [address] [id number] [place] [address] 27 Aug, 2011 [facility] [place] [facility] [address] [id number] [place] [address] 26 Aug, 2011 [facility] [place] [facility] [address] [id number] [place] [address] 23 Aug, 2011 [facility] [address] [id number] [place] [address] 20 Aug, 2011 [facility] [place] [facility] [address] [id number] [place] [address] 19 Aug, 2011 [facility] [address] [id number] [place] [address] 17 Aug, 2011 [facility] [address] [id number] [place] [address] 18 Jun, 2011 [facility] [place] [facility] [address] [id number] [place] [address] Jun, [facility] [place] [facility] [address] [id number] [place] [address] Jun, [facility] [place] [facility] [address] [id number] [place] [address] Jun, [facility] [place] [facility] [address] [id number] [place] [address] Jun, [facility] [place] [facility] [address] [id number] [place] [address] May, [facility] [place] [facility] [address] [id number] [place] [address] Apr, [facility] [place] [facility] [address] [id number] [place] [address] October, [facility] [place] [facility] [address] [id number] [address] May, [facility] [id number] [address] May, [facility] [id number] [address] Apr, [facility] [id number] [place] [address] Jan, [facility] [id number] [place] [address] Dec, [facility] [id number] [place] [address] Sep, [facility] [id number] [place] [address] Sep, [facility] [id number] [place] [address] Jul, [facility] [address] [id number] [address] May, [facility] [id number] [place] [address] Jan, IMMUNIZATIONS No Known Immunizations SOCIAL HISTORY Never Assessed REASON FOR VISIT Wheezing with a cough. PT says it all started around thanks giving. Yellow mucus , left ear with fluid[place] NORM PLAN OF CARE Activity Details Follow Up prn Reason: VITAL SIGNS Height 64 in 2017-05-11 Weight 265.8 lbs 2017-05-11 Temperature 98.5 degrees Fahrenheit 2017-05-11 Heart Rate 76 bpm 2017-05-11 Respiratory Rate 20 2017-05-11 Oximetry 98 % 2017-05-11 BMI 45.62 kg/m2 2017-05-11 Blood pressure systolic 106 mmHg 2017-05-11 Blood pressure diastolic 70 mmHg 2017-05-11 MEDICATIONS Medication Instructions Dosage Frequency Start Date End Date Duration Status Losartan Potassium 25 MG 1 tablet 24h 30 Active Flonase 50 MCG/ACT Nasally twice a day 1 spray in each nostril 12h May, 30 day(s) Active Omeprazole 20 mg 1 capsule 24h Active Cyclobenzaprine HCl 5 MG TAKE ONE TABLET BY MOUTH TWICE DAILY 30 Active Wellbutrin XL 150 MG Orally Once a day 1 tablet in the morning 24h Active Ibuprofen 800 MG Orally Three times a day 1 tablet 8h Active Paxil 40 mg Orally Once a day 1 tablet in the morning 24h Active PredniSONE 20 mg Orally Once a dayX 5 days then 1/2 tab X 5 days 1 tablet May, Active Tramadol HCl 50 MG Orally 1 tablet 3 times a day as needed 1 tablet 28 days Active Hydrochlorothiazide 50 MG TAKE ONE TABLET BY MOUTH ONCE DAILY 30 Active Spiriva Respimat 1.25 MCG/ACT Inhalation Once a day 2 puffs 24h Aug, 90 days Active Advair Diskus 250-50 MCG/DOSE Inhalation Twice a day 1 puff 12h Nov, 90 days Active Albuterol Sulfate (2.5 MG/3ML) 0.083% inhale 3 milliliters (2.5 mg) by nebulization route 4 times per day PRN for wheezing or cough Aug, Active Proventil HFA 108 (90 Base) MCG/ACT Inhalation every 4 hrs 2 puffs as needed 4h Feb, Active RESULTS No Results PROCEDURES Procedure Date Ordered Result Body Site MEASURE BLOOD OXYGEN LEVEL May 11, 2017 INSTRUCTIONS MEDICATIONS ADMINISTERED No Known [...]
--- OUTSIDE RECORDS SUMMARY | 2018-05-04 07:39 | XMS REPORT ---
Author Author JENNIFER CANCINO Organization [facility] [place] Address [address] [place] [address] Care Team Providers Care Comfort Station Supervisor Name Role Phone JENNIFER CANCINO Unavailable PROBLEMS Type Condition ICD9-CM Code [id number] Code Onset Dates Condition Status SNOMED Code Problem Mild persistent asthma without complication J45.30 Active 811831692 Problem Edema, unspecified type R60.9 Active 887283671 Problem Gastroesophageal reflux disease with esophagitis K21.0 Active 028660001 Problem Essential hypertension I10 Active 30602466 Problem Moderate persistent asthma with exacerbation J45.41 Active 301218166 Problem Other chronic pain G89.29 Active 70249806 Problem Esophageal abnormality K22.9 Active 78724598 Problem Hammer toe of right foot M20.41 Active 878430499 Problem Abnormal EKG R94.31 Active 973670371 Problem Right upper quadrant abdominal pain R10.11 Active 365046372 ALLERGIES No Information ENCOUNTERS Encounter Location Date Diagnosis [place] [address] 27175- 9646 Dec, [place] [address] [place] [id number] [place] [address] 11543- 5500 Nov, [facility] [place] [id number] [place] [address] 60719- 9696 Nov, Moderate persistent asthma with exacerbation J45.41 [facility] [place] [address] 16873- 7914 Nov, Low back pain M54.5 and Other chronic pain G89.29 [facility] [place] [address] [id number] [place] [address] 99203- 6010 October, Abscess L02.91 [facility] [place] [address] 82470- 2415 October, Cutaneous abscess of back excluding buttocks L02.212 and BMI 40.0-44.9, adult Z68.41 [place] [address] 42475- 6779 October, [place] [address] 07116- 5673 October, [place] [address] 80832- 0514 Sep, [place] [address] 83467- 5324 Sep, Abscess L02.91 [place] [address] 27869- 8373 Sep, Right upper quadrant abdominal pain R10.11 ; Mild persistent asthma without complication J45.30 and BMI 40.0-44.9, adult Z68.41 [place] [address] 66018- 7829 Aug, Abscess L02.91 and BMI 40.0-44.9, adult Z68.41 [place] [address] [place] [id number] [place] [address] 91723- 6675 Aug, Edema, unspecified type R60.9 [place] [address] [place] [id number] [place] [address] 09829- 4461 Aug, Right upper quadrant abdominal pain R10.11 ; Abnormal EKG R94.31 ; Esophageal abnormality K22.9 and BMI 40.0-44.9, adult Z68.41 [place] [address] [place] [id number] [place] [address] 68622- 0459 Aug, Hammer toe of right foot M20.41 and Onychomycosis B35.1 [facility] [address] [id number] [place] [address] 46497 -8189 Aug, Myalgia M79.1 [place] [address] [place] [address]- 0410 Aug, [place] [address] [place] [id number] [place] [address] 24592- 7855 Aug, Annual physical exam Z00.00 ; BMI 40.0-44.9, adult Z68.41 ; Mild persistent asthma without complication J45.30 ; Gastroesophageal reflux disease with esophagitis K21.0 ; Acute right-sided thoracic back pain M54.6 ; Trouble breathing R06.89 and Neck pain M54.2 [place] [address] 25397- 3162 Jul, Mild persistent asthma without complication J45.30 [place] [address] 82078- 5627 Jul, Edema, unspecified type R60.9 [place] [address] [place] [id number] [place] [address] 64854- 8737 Jun, Edema, unspecified type R60.9 [place] [address] [place] [id number] [place] [address] 99523- 3979 Jun, Moderate persistent asthma with exacerbation J45.41 [place] [address] [place] [id number] [place] [address] 47583- 4571 May, Edema, unspecified type R60.9 [place] [address] [place] [id number] [place] [address] 49282- 5484 May, Moderate persistent asthma with exacerbation J45.41 and Hammer toe of right foot M20.41 [place] [address] [place] [id number] [place] [address] 47012- 0714 04 May, 2017 Moderate persistent asthma without complication J45.40 ; Dysfunction of left eustachian tube H69.82 and BMI 45.0-49.9, adult Z68.42 [place] [address] [place] [id number] [place] [address] 38997- 5986 Apr, Edema, unspecified type R60.9 [place] [address] [place] [id number] [address]- 6577 Mar, Edema, unspecified type R60.9 [facility] [place] [id number] [place] [address] 42274- 1872 Feb, Edema, unspecified type R60.9 [facility] [place] [address] [place] [id number] [place] [address] 18729- 2867 Jan, Edema, unspecified type R60.9 [facility] [place] [address] [place] [id number] [place] [address] 47678- 0233 Jan, Mild persistent asthma without complication J45.30 [place] [address] [place] [id number] [place] [address] 86006- 0220 Dec, Edema, unspecified type R60.9 [place] [address] [place] [id number] [place] [address] 50426- 1697 Nov, Edema, unspecified type R60.9 and Essential hypertension I10 [place] [address] [place] [id number] [place] [address] 50147- 3616 October, Pain in left knee M25.562 [place] [address] [place] [id number] [place] [address] 77051- 3686 October, Pain in left knee M25.562 [place] [address] [place] [id number] [place] [address] 20617- 7066 October, [place] [address] [place] [id number] [place] [address] 31299- 0411 Sep, [facility] [place] [id number] [place] [address] 14609- 6625 Sep, Mild persistent asthma without complication J45.30 [facility] [place] [address] [place] [id number] [place] [address] 40348- 5870 Sep, Pain in left knee M25.562 [facility] [place] [address] [place] [id number] [place] [address] 45847- 5781 Aug, Acute nasopharyngitis J00 and Seasonal allergic rhinitis due to pollen J30.1 [facility] [place] [address] [place] [id number] [place] [address] 49046- 1211 16 Aug, 2016 [facility] [place] [address] [place] [id number] [place] [address] 48905- 4891 Aug, Arthralgia, unspecified joint M25.50 and Pain in left knee M25.562 [facility] [place] [address] 45398- 4299 Aug, Mild persistent asthma without complication J45.30 [place] [address] [place] [id number] [place] [address] 82171- 8479 Jul, Mild persistent asthma without complication J45.30 [place] [address] [place] [id number] [place] [address] 26567- 6540 13 Jul, 2016 Pain in left knee M25.562 [place] [address] 49313- 2519 Jun, [facility] [address] [id number] [place] [address] 18000 -1778 Jun, [place] [address] [place] [id number] [place] [address] 01631- 5501 Jun, Mild persistent asthma without complication J45.30 [place] [address] [place] [id number] [place] [address] 94255- 3579 May, [facility] [place] [address] [place] [id number] [place] [address] 15211- 9672 Apr, Restrictive lung disease J98.4 [place] [address] [place] [id number] [place] [address] 53614- 1414 Apr, [place] [address] [place] [id number] [place] [address] 35540- 3240 Apr, Mild persistent asthma without complication J45.[address] [facility] [address] [place] [id number] [place] [address] 35350 -9946 Mar, Sore throat J02.9 and Post-nasal drainage R09.82 [facility] [place] [address] [address]- 2148 Mar, [facility] [place] [address] [address]- 1069 Feb, [facility] [place] [address] [place] [id number] [place] [address] 45462- 8242 Feb, Mild persistent asthma without complication J45.30 [facility] [place] [id number] [place] [address] 43306- 9010 Feb, Arthralgia, unspecified joint M25.50 [place] [address] [place] [id number] [place] [address] 64526- 1782 Feb, Edema, unspecified type R60.9 ; Arthralgia, unspecified joint M25.50 ; Mild persistent asthma without complication J45.30 ; Essential hypertension I10 ; Gastroesophageal reflux disease without esophagitis K21.9 and Major depressive disorder with single episode, remission status unspecified F32.9 [place] [id number] [place] [address] 72679- 9198 Jan, Edema, unspecified type R60.9 ; Essential hypertension I10 ; Mild persistent asthma without complication J45.30 ; Gastroesophageal reflux disease with esophagitis K21.0 ; Arthralgia, unspecified joint M25.50 and Major depressive disorder with single episode, remission status unspecified F32.9 [place] [id number] [address]- 7011 Jan, [place] [id number] [place] [address] 07172- 5195 Dec, [facility] [place] [address] [place] [address] 12444- 1857 Dec, [facility] [place] [id number] [address]- 2664 Dec, [place] [id number] [address]- 6810 Nov, Bilateral edema of lower extremity R60.0 [facility] [place] [id number] [address]- 3526 Nov, Bilateral edema of lower extremity R60.[address] [facility] [id number] [address] -2147 Nov, [facility] [place] [id number] [place] [address] 21700- 8509 Nov, [facility] [place] [id number] [address]- 9424 October, [facility] [place] [id number] [place] [address] 20561- 2395 Sep, [facility] [place] [id number] [place] [address] 66519- 4268 Aug, Acute sinusitis J01.90 [facility] [place] [id number] [address]- 2673 Aug, [facility] [place] [id number] [place] [address] 99746- 6391 Aug, [facility] [place] [id number] [address]- 0941 Jul, [facility] [place] [id number] [address]- 1576 Jul, Pharyngitis J02.9 [facility] [place] [id number] [address]- 6685 Jul, [facility] [place] [id number] [address]- 7456 Jun, Pain in left knee M25.562 [facility] [place] [id number] [address]- [address]286 Jun, [facility] [address] [id number] [place] [address] 90505 -2699 May, Upper respiratory symptom R09.89 [facility] [place] [address] [place] [id number] [place] [address] 248582- 4006 May, [facility] [place] [address] [place] [id number] [place] [address] 303238- 3345 Apr, Costochondritis M94.0 and Knee pain, left M25.562 [facility] [place] [address] [place] [id number] [place] [address] 32133- 4696 Apr, [facility] [place] [address] [id number] [place] [address] 60360- 4599 Mar, Eustachian tube dysfunction, left H69.82 [facility] [place] [address] [id number] [place] [address] 45447- 9539 Mar, [facility] [place] [address] [id number] [place] [address] 96147- 6470 Mar, [facility] [place] [address] [id number] [place] [address] 83537- 2450 Mar, [facility] [place] [address] [id number] [place] [address] 16384- 5992 Feb, [facility] [place] [address] [id number] [place] [address] 49621- 1875 Feb, [facility] [place] [address] [id number] [place] [address] 36881- 8987 Feb, [facility] [place] [address] [id number] [place] [address] 43005- 2543 Jan, Asthma 493.90 [facility] [place] [address] [id number] [place] [address] 05555- 3809 Dec, [facility] [place] [address] [id number] [place] [address] 97845- 9550 Dec, [facility] [place] [address] [id number] [place] [address] 21956- 8529 Dec, [facility] [place] [id number] [address]- 7372 Dec, [facility] [place] [id number] [address]- 9746 Dec, Asthma, unspecified, unspecified status 493.90 [facility] [place] [id number] [place] [address] 98794- 9536 Nov, [facility] [place] [address] [id number] [place] [address] 11126- 3966 Nov, Asthma, unspecified, unspecified status 493.90 [facility] [place] [address] [id number] [place] [address] 37524- 2756 October, Asthma, unspecified, unspecified status 493.90 [facility] [place] [id number] [place] [address] 72764- 7296 October, [facility] [place] [id number] [place] [address] 02123- 1606 October, Contact dermatitis 692.9 and Candidiasis of skin 112.3 [facility] [place] [address] [id number] [place] [address] 05584- 6592 Sep, [facility] [place] [id number] [address]- 1049 Sep, [facility] [place] [id number] [address]- 9856 Aug, [facility] [place] [id number] [address]- 5746 Aug, [facility] [place] [address] [id number] [place] [address] 00363- 1686 Aug, [facility] [place] [id number] [address]- 2546 Aug, [facility] [place] [id number] [address]- 6063 Jul, [facility] [place] [facility] [address] [id number] [place] [address]- 1156 Jul, [facility] [place] [facility] [address] [id number] [place] [address]- 8686 Jun, [facility] [place] [facility] [address] [id number] [place] [address]- 0901 Jun, [facility] [place] [facility] [address] [id number] [place] [address]- 1479 May, [facility] [place] [facility] [address] [id number] [place] [address]- 1887 May, [facility] [place] [facility] [address] [id number] [place] [address]- 7175 May, [facility] [place] [facility] [address] [id number] [place] [address]- 2968 May, [facility] [place] [facility] [address] [id number] [place] [address]- 6965 May, [facility] [place] [facility] [address] [id number] [place] [address]- 8488 May, [facility] [place] [facility] [address] [id number] [place] [address]- 0081 Apr, [facility] [place] [facility] [address] [id number] [place] [address]- 4148 Apr, [facility] [place] [facility] [address] [id number] [place] [address]- 9549 15 Feb, 2014 [facility] [place] [facility] [address] [id number] [place] [address] 2546 15 Feb, 2014 [facility] [place] [facility] [address] [id number] [place] [address]- 7946 Feb, [facility] [place] [facility] [address] [id number] [place] [address]- 1726 Feb, [facility] [place] [facility] [address] [id number] [place] [address]- 5590 Feb, [facility] [place] [facility] [address] [id number] [place] [address]- 0505 Feb, [facility] [place] [facility] [address] [id number] [place] [address]- 5259 Jan, [facility] [place] [facility] [address] [id number] [place] [address]- 6251 Jan, [facility] [place] [facility] [address] [id number] [place] [address]- 7964 Jan, [facility] [place] [facility] [address] [id number] [place] [address]- 2757 Jan, [facility] [place] [facility] [address] [id number] [place] [address]- 9172 Jan, [facility] [place] [facility] [address] [id number] [place] [address]- 5842 Jan, [facility] [place] [facility] [address] [id number] [place] [address]- 7515 Dec, [facility] [place] [facility] [address] [id number] [place] [address]- 6887 Dec, [facility] [place] [facility] [address] [id number] [place] [address]- 7212 Nov, [facility] [place] [facility] [address] [id number] [place] [address]- 3315 Nov, [facility] [place] [facility] [address] [id number] [place] [address]- 3262 Nov, [facility] [place] [facility] [address] [id number] [place] [address]- 0104 Nov, [facility] [place] [facility] [address] [id number] [place] [address]- 4866 Nov, [facility] [place] [facility] [address] [id number] [place] [address]- 2225 Nov, [facility] [place] [facility] [address] [id number] [place] [address]- 4698 Nov, [facility] [place] [facility] [address] [id number] [place] [address]- 6887 Nov, [facility] [place] [facility] [address] [id number] [place] [address]- 6380 Nov, [facility] [place] [facility] [address] [id number] [place] [address]- 9661 Nov, [facility] [place] [facility] [address] [id number] [place] [address]- 0118 Nov, [facility] [place] [facility] [address] [id number] [place] [address]- 5370 Nov, [facility] [place] [facility] [address] [id number] [place] [address]- 6681 Nov, [facility] [place] [facility] [address] [id number] [place] [address]- 5200 October, [facility] [place] [facility] [address] [id number] [place] [address]- 3148 October, [facility] [place] [facility] [address] [id number] [place] [address]- 4046 October, [facility] [place] [facility] [address] [id number] [place] [address]- 5419 October, [facility] [place] [facility] [address] [id number] [place] [address] Sep, [facility] [place] [facility] [address] [id number] [place] [address] Sep, [facility] [place] [facility] [address] [id number] [place] [address] Sep, [facility] [place] [facility] [address] [id number] [place] [address] Sep, [facility] [place] [facility] [address] [id number] [place] [address] Aug, [facility] [place] [facility] [address] [id number] [place] [address] Aug, [facility] [place] [facility] [address] [id number] [place] [address] Jul, [facility] [place] [facility] [address] [id number] [place] [address] Jul, [facility] [place] [facility] [address] [id number] [place] [address] Jun, [facility] [place] [facility] [address] [id number] [place] [address] Jun, [facility] [place] [facility] [address] [id number] [place] [address] Mar, [facility] [place] [facility] [address] [id number] [place] [address] Mar, [facility] [place] [facility] [address] [id number] [place] [address] Mar, [facility] [place] [facility] [address] [id number] [place] [address] Mar, [facility] [place] [facility] [address] [id number] [place] [address] Mar, [facility] [place] [facility] [address] [id number] [place] [address] Feb, [facility] [place] [facility] [address] [id number] [place] [address] Feb, [facility] [place] [facility] [address] [id number] [place] [address] Dec, [facility] [place] [facility] [address] [id number] [place] [address] Nov, [facility] [place] [facility] [address] [id number] [place] [address] October, [facility] [place] [facility] [address] [id number] [place] [address] 05 Sep, 2012 [facility] [address] [id number] [place] [address] Sep, [facility] [address] [id number] [place] [address] 29 Aug, 2012 [facility] [address] [id number] [place] [address] 28 Aug, 2012 [facility] [address] [id number] [place] [address] 13 Aug, 2012 [facility] [address] [id number] [place] [address] 12 Aug, 2012 [facility] [address] [id number] [place] [address] 14 Jun, 2012 [facility] [address] [id number] [place] [address] Jun, [facility] [address] [id number] [place] [address] Jun, [facility] [address] [id number] [place] [address] May, [facility] [address] [id number] [place] [address] May, [facility] [address] [id number] [place] [address] Apr, [facility] [address] [id number] [place] [address] Apr, [facility] [address] [id number] [place] [address] Apr, [facility] [address] [id number] [place] [address] Apr, [facility] [address] [id number] [place] [address] Apr, [facility] [place] [facility] [address] [id number] [place] [address] Apr, [facility] [place] [facility] [address] [id number] [place] [address] Apr, [facility] [place] [facility] [address] [id number] [place] [address] Mar, [facility] [place] [facility] [address] [id number] [place] [address] Mar, [facility] [place] [facility] [address] [id number] [place] [address] Feb, [facility] [place] [facility] [address] [id number] [place] [address] 17 Feb, 2012 [facility] [place] [facility] [address] [id number] [place] [address] Feb, [facility] [place] [facility] [address] [id number] [place] [address] Jan, [facility] [place] [facility] [address] [id number] [place] [address] Jan, [facility] [place] [facility] [address] [facility] [id number] [place] [address] Jan, [facility] [place] [facility] [address] [facility] [id number] [place] [address] Jan, [facility] [place] [facility] [address] [id number] [place] [address] Dec, [facility] [place] [facility] [address] [id number] [place] [address] Dec, [facility] [place] [facility] [address] [id number] [place] [address] Dec, [facility] [place] [facility] [address] [facility] [id number] [place] [address] Dec, [facility] [place] [facility] [address] [id number] [place] [address] 10 Dec, 2011 [facility] [address] [id number] [place] [address] Nov, [facility] [place] [facility] [address] [id number] [place] [address] 14 Nov, 2011 [facility] [place] [facility] [address] [id number] [place] [address] Nov, [facility] [place] [facility] [address] [id number] [place] [address] Nov, [facility] [place] [facility] [address] [id number] [place] [address] October, [facility] [place] [facility] [address] [id number] [place] [address] October, [facility] [address] [id number] [place] [address] October, [facility] [place] [facility] [address] [id number] [place] [address] 39[address] October, [facility] [place] [facility] [address] [id number] [place] [address] October, [facility] [place] [facility] [address] [facility] [id number] [place] [address] Sep, [facility] [place] [facility] [address] [id number] [place] [address] Sep, [facility] [place] [facility] [address] [id number] [place] [address] Sep, [facility] [place] [facility] [address] [id number] [place] [address] Sep, [facility] [place] [facility] [address] [id number] [place] [address] Sep, [facility] [place] [facility] [address] [facility] [id number] [place] [address] Aug, [facility] [place] [facility] [address] [id number] [place] [address] 28 Aug, 2011 [facility] [place] [facility] [address] [id number] [place] [address] 27 Aug, 2011 [facility] [place] [facility] [address] [id number] [place] [address] 26 Aug, 2011 [facility] [place] [facility] [address] [id number] [place] [address] 23 Aug, 2011 [facility] [place] [facility] [address] [id number] [place] [address] 20 Aug, 2011 [facility] [place] [facility] [address] [id number] [place] [address] 19 Aug, 2011 [facility] [place] [facility] [address] [id number] [place] [address] 17 Aug, 2011 [facility] [place] [facility] [address] [id number] [place] [address] 18 Jun, 2011 [facility] [place] [facility] [address] [id number] [place] [address] Jun, [facility] [place] [facility] [address] [id number] [place] [address] Jun, [facility] [place] [facility] [address] [id number] [place] [address] Jun, [facility] [place] [facility] [address] [id number] [place] [address] Jun, [facility] [place] [facility] [address] [id number] [place] [address] May, [facility] [place] [facility] [address] [id number] [place] [address]- [address]46 Apr, [facility] [place] [facility] [address] [id number] [place] [address]46 October, [facility] [place] [facility] [address] [id number] [place] [address] May, [facility] [place] [address] [id number] [address] May, [facility] [place] [id number] [address] Apr, [facility] [place] [id number] [address] Jan, [facility] [place] [id number] [address] Dec, [facility] [place] [id number] [address] Sep, [facility] [place] [id number] [address] Sep, [facility] [place] [id number] [address] Jul, [facility] [place] [id number] [address] May, [facility] [place] [id number] [address] Jan, IMMUNIZATIONS No Known Immunizations SOCIAL HISTORY Never Assessed REASON FOR VISIT Controlled Med Refill 07/07/17 PLAN OF CARE VITAL SIGNS MEDICATIONS Medication [...]
--- OUTSIDE RECORDS SUMMARY | 2018-05-04 07:41 | XMS REPORT ---
Author Author ROSALIND STEIN Organization [facility] Address [address] [place] [address] Care Team Providers Care Forest Ecologist Name Role Phone ROSALIND STEIN Unavailable PROBLEMS Type Condition ICD9-CM Code NSL02-VE Code Onset Dates Condition Status SNOMED Code Problem Mild persistent asthma without complication J45.30 Active 717001085 Problem Edema, unspecified type R60.9 Active 280342148 Problem Gastroesophageal reflux disease with esophagitis K21.0 Active 297925415 Problem Essential hypertension I10 Active 74352795 Problem Moderate persistent asthma with exacerbation J45.41 Active 343174120 Problem Other chronic pain G89.29 Active 38463860 Problem Esophageal abnormality K22.9 Active 81525531 Problem Hammer toe of right foot M20.41 Active 911918577 Problem Abnormal EKG R94.31 Active 479712752 Problem Right upper quadrant abdominal pain R10.11 Active 214337356 ALLERGIES Substance Reaction Event Type Date Status Naprosyn itching Drug Allergy Jun, Active Micardis Unknown Drug Allergy Jun, Active Hydrocodone Bitartrate itching Drug Allergy Jun, Active Celebrex swelling Drug Allergy Jun, Active Doxycycline scalp rash Drug Allergy Jun, Active ENCOUNTERS Encounter Location Date Diagnosis [facility] [address] [facility] [id number] [address] Dec, [facility] [address] [facility] [id number], [place] [address] Nov, Moderate persistent asthma with exacerbation J45.41 [facility] [address] [id number] [address] Nov, Low back pain M54.5 and Other chronic pain G89.29 [facility] [address] [id number] [address] 68[address] October, Abscess L02.91 [place] [id number] [place] [address] 12759- 6479 October, Cutaneous abscess of back excluding buttocks L02.212 and BMI 40.0-44.9, adult Z68.41 [place] [id number] [place] [address] 53626- 0933 October, [place] [address] 18320- 6809 October, [place] [id number] [place] [address] 00653- 6359 Sep, [place] [id number] [place] [address] 91393- 7557 Sep, Abscess L02.91 [place] [id number] [place] [address] 96597- 3707 Sep, Right upper quadrant abdominal pain R10.11 ; Mild persistent asthma without complication J45.30 and BMI 40.0-44.9, adult Z68.41 [place] [id number] [place] [address] 77906- 6100 Aug, Abscess L02.91 and BMI 40.0-44.9, adult Z68.41 [place] [id number] [place] [address] 05428- 2400 Aug, Edema, unspecified type R60.9 [place] [id number] [place] [address] 00220- 9035 Aug, Right upper quadrant abdominal pain R10.11 ; Abnormal EKG R94.31 ; Esophageal abnormality K22.9 and BMI 40.0-44.9, adult Z68.41 [place] [id number] [place] [address] 17725- 8172 Aug, Hammer toe of right foot M20.41 and Onychomycosis B35.1 [facility] [id number] [place] [address] 66149 -4379 Aug, Myalgia M79.1 [place] [address] 35411- 2511 Aug, [place] [address] [address]18859- 6142 Aug, Annual physical exam Z00.00 ; BMI 40.0-44.9, adult Z68.41 ; Mild persistent asthma without complication J45.30 ; Gastroesophageal reflux disease with esophagitis K21.0 ; Acute right-sided thoracic back pain M54.6 ; Trouble breathing R06.89 and Neck pain M54.2 [place] [address] 708974- 5515 28 Jul, 2017 Mild persistent asthma without complication J45.[address] 22932- 4701 Jul, Edema, unspecified type R60.[address] 71714- 4009 Jun, Edema, unspecified type R60.[address] 50145- 7935 Jun, Moderate persistent asthma with exacerbation J45.[address] 18118- 3868 May, Edema, unspecified type R60.9 [place] [address] [address]18969- 2108 May, Moderate persistent asthma with exacerbation J45.41 and Hammer toe of right foot M20.41 [place] [id number]- 2640 04 May, 2017 Moderate persistent asthma without complication J45.40 ; Dysfunction of left eustachian tube H69.82 and BMI 45.0-49.9, adult Z68.[address] 65519- 9611 Apr, Edema, unspecified type R60.9 [facility] [id number] [place] [address] 23291- 4729 Mar, Edema, unspecified type R60.9 [facility] [id number] [place] [address] 55464- 5662 Feb, Edema, unspecified type R60.9 [facility] [id number] [place] [address] 37097- 3942 Jan, Edema, unspecified type R60.9 [place] [id number] [place] [address] 17539- 1236 Jan, Mild persistent asthma without complication J45.30 [place] [id number] [place] [address] 46857- 4279 Dec, Edema, unspecified type R60.9 [place] [id number] [place] [address] 14297- 9703 Nov, Edema, unspecified type R60.9 and Essential hypertension I10 [place] [id number] [place] [address] 56916- 5244 October, Pain in left knee M25.562 [place] [id number] [place] [address] 67847- 2982 October, Pain in left knee M25.562 [facility] [id number] [place] [address] 55859- 8368 October, [facility] [id number] [place] [address] 74410- 0917 Sep, [facility] [id number] [place] [address] 67437- 0649 Sep, Mild persistent asthma without complication J45.30 [facility] [id number] [place] [address] 28283- 4219 Sep, Pain in left knee M25.562 [facility] [id number] [place] [address] 98039- 4493 23 Aug, 2016 Acute nasopharyngitis J00 and Seasonal allergic rhinitis due to pollen J30.1 [facility] [address] [place] [address] 85827- 6756 16 Aug, 2016 [facility] [id number] [place] [address] 14900- 0290 13 Aug, 2016 Arthralgia, unspecified joint M25.50 and Pain in left knee M25.562 [facility] [id number] [place] [address] 34676- 2523 08 Aug, 2016 Mild persistent asthma without complication J45.30 [facility] [id number] [place] [address] 72135- 7807 28 Jul, 2016 Mild persistent asthma without complication J45.30 [facility] [id number] [place] [address] 62994- 6697 13 Jul, 2016 Pain in left knee M25.562 [facility] [id number] [place] [address] 46220- 9833 Jun, [facility] [id number] [place] [address] 14367 -2509 Jun, [facility] [id number] [place] [address] 97646- 4521 Jun, Mild persistent asthma without complication J45.30 [facility] [id number] [place] [address] 93634- 8206 May, [facility] [id number] [place] [address] 27648- 9664 Apr, Restrictive lung disease J98.4 [facility] [id number] [place] [address] 58235- 1511 Apr, [facility] [id number] [place] [address] 16528- 5732 Apr, Mild persistent asthma without complication J45.30 [facility] [address] [address]20 Mar, Sore throat J02.9 and Post-nasal drainage R09.82 [facility] [address], [place] [address]- 3471 Mar, [facility] [id number] [place] [address] 41224- 8688 Feb, [facility] [id number] [place] [address] 91219- 9548 Feb, Mild persistent asthma without complication J45.30 [facility] [id number] [place] [address] 49461- 7651 Feb, Arthralgia, unspecified joint M25.50 [place] [id number] [place] [address] 07671- 8015 Feb, Edema, unspecified type R60.9 ; Arthralgia, unspecified joint M25.50 ; Mild persistent asthma without complication J45.30 ; Essential hypertension I10 ; Gastroesophageal reflux disease without esophagitis K21.9 and Major depressive disorder with single episode, remission status unspecified F32.9 [facility] [address] [address]- 2228 Jan, Edema, unspecified type R60.9 ; Essential hypertension I10 ; Mild persistent asthma without complication J45.30 ; Gastroesophageal reflux disease with esophagitis K21.0 ; Arthralgia, unspecified joint M25.50 and Major depressive disorder with single episode, remission status unspecified F32.9 [place] [address], [place] [address]- 0780 Jan, [facility] [id number] [place] [address] 16529- 5253 Dec, [facility] [id number] [place] [address] 43255- 8464 Dec, [place] [address], [place] [address]- 6010 Dec, [facility] [address], [place] [address]- 4805 Nov, Bilateral edema of lower extremity R60.0 [facility] [address], [place] [address]- 3494 24 Nov, 2015 Bilateral edema of lower extremity R60.0 [facility] [address], [place] [address] -0628 Nov, [facility] [address] [place] [address] 91761- 2336 Nov, [facility] [address], [place] [address]- 4503 October, [facility] [address] [place] [address] 59911- 7167 Sep, [facility] [address], [place] [address]- 7695 Aug, Acute sinusitis J01.90 [facility] [address], [place] [address]- 8501 Aug, [facility] [address], [place] [address]- 6707 Aug, [facility] [address], [place] [address]- 2666 Jul, [facility] [address], [place] [address]- 2546 Jul, Pharyngitis J02.9 [facility] [address], [place] [address]- 0116 Jul, [facility] [address], [place] [address]- 7336 Jun, Pain in left knee M25.562 [facility] [id number] [place] [address] 72989- 9728 Jun, [facility] [id number] [place] [address] 40789 -8867 May, Upper respiratory symptom R09.89 [facility] [id number] [place] [address] 44138- 7062 May, [facility] [address] 62002- 1447 Apr, Costochondritis M94.0 and Knee pain, left M25.562 [facility] [id number] [place] [address] 12285- 7195 Apr, [facility] [id number] [place] [address] 92133- 6431 Mar, Eustachian tube dysfunction, left H69.82 [facility] [id number] [place] [address] 54592- 0633 Mar, [facility] [id number] [place] [address] 63818- 4976 Mar, [facility] [id number] [place] [address] 12828- 9964 Mar, [facility] [id number] [place] [address] 78434- 0632 Feb, [facility] [id number] [place] [address] 52119- 8077 Feb, [facility] [id number] [place] [address] 35067- 4082 Feb, [facility] [id number] [place] [address] 58242- 0118 Jan, Asthma 493.90 [facility] [id number] [place] [address] 33561- 6833 Dec, [facility] [address] 49621- 2546 Dec, [facility] [address], [place] [address]- 0601 Dec, [facility] [address], [place] [address]- 3366 Dec, [facility] [address], [place] [address]- 0126 Dec, Asthma, unspecified, unspecified status 493.90 [facility] [address], [place] [address]- 3246 Nov, [facility] [id number] [place] [address] 35997- 8731 Nov, Asthma, unspecified, unspecified status 493.90 [facility] [address], [place] [address]- 8816 October, Asthma, unspecified, unspecified status 493.90 [facility] [address], [place] [address]- 1060 October, [facility] [address] [place] [address] 55719- 8386 October, Contact dermatitis 692.9 and Candidiasis of skin 112.3 [facility] [address], [place] [address]- 3579 Sep, [facility] [address], [place] [address]- 8992 Sep, [facility] [address], [place] [address]- 6071 Aug, [facility] [address], [place] [address]- 0136 Aug, [facility] [address], [place] [address]- 4516 Aug, [facility] [address], [place] [address]- 4785 Aug, [facility] [place] [facility] [address] [id number] [place] [address]- 7329 Jul, [facility] [place] [facility] [address] [id number] [place] [address]- 8638 Jul, [facility] [place] [facility] [address] [id number] [place] [address]- 4658 Jun, [facility] [place] [facility] [address] [id number] [place] [address]- 5334 Jun, [facility] [place] [facility] [address] [id number] [place] [address]- 7574 May, [facility] [place] [facility] [address] [id number] [place] [address]- 6769 May, [facility] [place] [facility] [address] [id number] [place] [address]- 0034 May, [facility] [place] [facility] [address] [id number] [place] [address]- 8163 May, [facility] [place] [facility] [address] [id number] [place] [address]- 7593 May, [facility] [place] [facility] [address] [id number] [place] [address]- 7957 May, [facility] [place] [facility] [address] [id number] [place] [address]- 4933 Apr, [facility] [place] [facility] [address] [id number] [place] [address]- 8581 Apr, [facility] [place] [facility] [address] [id number] [place] [address]- 7289 Feb, [facility] [place] [facility] [address] [id number] [place] [address]- 5957 15 Feb, 2014 [facility] [place] [facility] [address] [id number] [place] 3560 Feb, [facility] [place] [facility] [address] [id number] [place] [address]- 5829 Feb, [facility] [place] [facility] [address] [id number] [place] [address]- 1199 Feb, [facility] [place] [facility] [address] [id number] [place] [address]- 2691 Feb, [facility] [place] [facility] [address] [id number] [place] [address]- 2507 Jan, [facility] [place] [facility] [address] [id number] [place] [address]- 8494 Jan, [facility] [place] [facility] [address] [id number] [place] [address]- 1646 Jan, [facility] [place] [facility] [address] [id number] [place] [address]- 5101 Jan, [facility] [place] [facility] [address] [id number] [place] [address]- 3512 Jan, [facility] [place] [facility] [address] [id number] [place] [address]- 9119 Jan, [facility] [place] [facility] [address] [id number] [place] [address]- 2160 Dec, [facility] [place] [facility] [address] [id number] [place] [address]- 7756 Dec, [facility] [place] [facility] [address] [id number] [place] [address]- 6990 Nov, [facility] [place] [facility] [address] [id number] [place] [address]- 6252 Nov, [facility] [place] [facility] [address] [id number] [place] [address]- 4298 Nov, [facility] [place] [facility] [address] [id number] [place] [address]- 1529 Nov, [facility] [place] [facility] [address] [id number] [place] [address]- 3036 Nov, [facility] [place] [facility] [address] [id number] [place] [address]- 7240 Nov, [facility] [place] [facility] [address] [id number] [place] [address]- 2834 Nov, [facility] [place] [facility] [address] [id number] [place] [address]- 8990 Nov, [facility] [place] [facility] [address] [id number] [place] [address]- 8186 Nov, [facility] [place] [facility] [address] [id number] [place] [address]- 4444 Nov, [facility] [place] [facility] [address] [id number] [place] [address]- 7002 Nov, [facility] [place] [facility] [address] [id number] [place] [address]- 1977 Nov, [facility] [place] [facility] [address] [id number] [place] [address]- 4969 Nov, [facility] [place] [facility] [address] [id number] [place] [address]- 9090 October, [facility] [place] [facility] [address] [id number] [place] [address]- 5622 October, [facility] [place] [facility] [address] [id number] [place] [address]- 5113 October, [facility] [place] [facility] [address] [id number] [place] [address]- 3747 October, [facility] [place] [facility] [address] [id number] [place] [address]- 0443 Sep, [facility] [place] [facility] [address] [id number] [place] [address]- 5259 Sep, [facility] [place] [facility] [address] [id number] [place] [address]- 8704 Sep, [facility] [place] [facility] [address] [id number] [place] [address]- 2546 Sep, [facility] [place] [facility] [address] [id number] [place] [address]- 9409 Aug, [facility] [place] [facility] [address] [id number] [place] [address]- 8754 Aug, [facility] [place] [facility] [address] [id number] [place] [address]- 5561 Jul, [facility] [place] [facility] [address] [id number] [place] [address]- 3761 Jul, [facility] [place] [facility] [address] [id number] [place] [address]- 1771 Jun, [facility] [place] [facility] [address] [id number] [place] [address]- 1229 Jun, [facility] [place] [facility] [address] [id number] [place] [address]- 0354 Mar, [facility] [place] [facility] [address] [id number] [place] [address]- 4962 Mar, [facility] [place] [facility] [address] [id number] [place] [address]- 7386 Mar, [facility] [place] [facility] [address] [id number] [place] [address]- 0601 Mar, [facility] [place] [facility] [address] [id number], [place] [address]- 4949 Mar, [facility] [place] [facility] [address] [id number], [place] [address]- 8283 Feb, [facility] [place] [facility] [address] [id number] [place] [address]- 6856 Feb, [facility] [place] [facility] [address] [id number] [place] [address]- 3080 Dec, [facility] [place] [facility] [address] [id number] [place] [address]- 0738 Nov, [facility] [place] [facility] [address] [id number] [place] [address]- 1626 October, [facility] [address] [id number] [place] [address]- 5085 Sep, [facility] [place] [facility] [address] [id number] [place] [address]- 2546 Sep, [facility] [address] [id number] [place] [address]- 4485 Aug, [facility] [address] [id number] [place] [address]- 6893 Aug, [facility] [address] [id number] [place] [address]- 9387 Aug, [facility] [address] [id number] [place] [address]- 3515 Aug, [facility] [address] [id number] [place] [address]- 4139 Jun, [facility] [address] [id number] [place] [address] Jun, [facility] [address] [id number] [place] [address] Jun, [facility] [address] [id number] [place] [address] May, [facility] [address] [id number] [place] [address] May, [facility] [address] [id number] [place] [address] Apr, [facility] [place] [facility] [address] [id number] [place] [address] Apr, [facility] [place] [facility] [address] [id number] [place] [address] Apr, [facility] [address] [id number] [place] [address] Apr, [facility] [place] [facility] [address] [id number] [place] [address] Apr, [facility] [place] [facility] [address] [id number] [place] [address] Apr, [facility] [place] [facility] [address] [id number] [place] [address] Apr, [facility] [place] [facility] [address] [id number] [place] [address] Mar, [facility] [place] [facility] [address] [id number] [place] [address] Mar, [facility] [place] [facility] [address] [id number] [place] [address]- [address] 18 Feb, 2012 [facility] [place] [facility] [address] [id number] [place] [address] 17 Feb, 2012 [facility] [place] [facility] [address] [id number] [place] [address] 13 Feb, 2012 [facility] [place] [facility] [address] [id number] [place] [address] 15 Jan, 2012 [facility] [place] [facility] [address] [id number] [place] [address] Jan, [facility] [place] [facility] [address] [id number] [place] [address] Jan, [facility] [place] [facility] [address] [id number] [address] Jan, [facility] [place] [facility] [address] [id number] [place] [address]- [address] Dec, [facility] [place] [facility] [address] [id number] [place] [address] Dec, [facility] [place] [facility] [address] [id number] [place] [address]- [address] Dec, [facility] [place] [facility] [address] [id number] [place] [address] 17 Dec, 2011 [facility] [place] [facility] [address] [id number] [place] [address] 10 Dec, 2011 [facility] [place] [facility] [address] [id number] [place] [address]- [address] 14 Nov, 2011 [facility] [place] [facility] [address] [id number] [place] [address]- [address] 14 Nov, 2011 [facility] [place] [facility] [address] [id number] [place] [address] Nov, [facility] [place] [facility] [address] [id number] [place] [address]- [address] Nov, [facility] [place] [facility] [address] [id number] [place] [address] October, [facility] [place] [facility] [address] [id number] [place] [address] October, [facility] [place] [facility] [address] [id number] [place] [address] October, [facility] [place] [facility] [address] [id number] [place] [address] October, [facility] [place] [facility] [address] [id number] [place] [address]- [address] October, [facility] [place] [facility] [address] [id number] [place] [address] 25 Sep, 2011 [facility] [place] [facility] [address] [id number] [place] [address] 20 Sep, 2011 [facility] [place] [facility] [address] [id number] [place] [address]- [address] 12 Sep, 2011 [facility] [place] [facility] [address] [id number] [place] [address]- [address] Sep, [facility] [place] [facility] [address] [id number] [place] [address] Sep, [facility] [place] [facility] [address] [id number] [place] [address] 29 Aug, 2011 [facility] [place] [facility] [address] [id number] [place] [address] 28 Aug, 2011 [facility] [place] [facility] [address] [id number] [place] [address] 27 Aug, 2011 [facility] [place] [facility] [address] [id number] [place] [address]- [id number] 26 Aug, 2011 [facility] [place] [facility] [address] [id number] [place] [address] 23 Aug, 2011 [facility] [place] [facility] [address] [id number] [place] [address] 20 Aug, 2011 [facility] [place] [facility] [address] [id number] [place] [address] 19 Aug, 2011 [facility] [place] [facility] [address] [id number] [place] [address] 17 Aug, 2011 [facility] [place] [facility] [address] [id number] [place] [address] 18 Jun, 2011 [facility] [place] [facility] [address] [id number] [place] [address] Jun, [facility] [place] [facility] [address] [id number] [place] [address] 11 Jun, 2011 [facility] [place] [facility] [address] [id number] [place] [address] Jun, [facility] [place] [facility] [address] [id number] [place] [address] 06 Jun, 2011 [facility] [place] [facility] [address] [id number] [place] [address] 20 May, 2011 [facility] [place] [facility] [address] [id number] [place] [address] 29 Apr, 2011 [facility] [place] [facility] [address] [id number] [place] [address] October, [facility] [id number] [address] May, [facility] [id number] [place] [address] May, [facility] [id number] [place] [address] Apr, [facility] [id number] [place] [address] Jan, [facility] [id number] [address] Dec, [facility] [id number] [place] [address] Sep, [facility] [id number] [place] [address] Sep, [facility] [id number] [place] [address] Jul, [facility] [id number] [address] May, [facility] [id number] [address] Jan, IMMUNIZATIONS No Known Immunizations SOCIAL HISTORY Never Assessed REASON FOR VISIT Sore throat, SOB, back pain, weak and slight temp-[employer]ependence NORM PLAN OF CARE Activity Details Follow Up Reg appt Reason: VITAL SIGNS Height 64 in 2017-06-23 Weight 261.8 lbs 2017-06-23 Temperature 99.2 degrees Fahrenheit 2017-06-23 Heart Rate 76 bpm 2017-06-23 Respiratory Rate 20 2017-06-23 BMI 44.93 kg/m2 2017-06-23 Blood pressure systolic 132 mmHg 2017-06-23 Blood pressure diastolic 84 mmHg 2017-06-23 MEDICATIONS Medication Instructions Dosage Frequency Start Date End Date Duration Status PredniSONE 50 mg Orally Once a day 1 tablet 24h Jun, Jun, 05 days Active Advair Diskus 250-50 MCG/DOSE Inhalation Twice a day 1 puff 12h Nov, 90 days Active Proventil HFA 108 (90 Base) MCG/ACT Inhalation every 4 hrs 2 puffs as needed 4h 01 Feb, 2016 Active Paxil 40 mg Orally Once a day 1 tablet in the morning 24h Active Omeprazole 20 mg 1 capsule 24h Active Albuterol Sulfate (2.5 MG/3ML) 0.083% inhale 3 milliliters (2.5 mg) by nebulization route 4 times per day PRN for wheezing or cough Aug, Active Losartan Potassium 25 MG 1 tablet 24h 30 Active Spiriva Respimat 1.25 MCG/ACT Inhalation Once a day 2 puffs 24h Aug, 90 days Active Flonase 50 MCG/ACT Nasally twice a day 1 spray in each nostril 12h May, 30 day(s) Not-Taking Hydrochlorothiazide 50 MG TAKE ONE TABLET BY MOUTH ONCE DAILY 30 Active Tramadol HCl 50 MG Orally 1 tablet 3 times a day as needed 1 tablet 28 days Active Ibuprofen 800 MG Orally Three times a day 1 tablet 8h Active Wellbutrin XL 150 MG Orally Once a day 1 tablet in the morning 24h Active Cyclobenzaprine HCl 5 MG TAKE ONE TABLET BY MOUTH TWICE DAILY 30 Not-Taking PredniSONE 20 mg Orally Once a day x 7 days then 1 daily x 7 days, then 1/2 daily x 6 days. 2 tablets May, Not-Taking RESULTS No Results PROCEDURES No Known procedures [...]
--- OUTSIDE RECORDS SUMMARY | 2018-05-04 07:42 | XMS REPORT ---
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 Phone JENNIFER CANCINO Unavailable PROBLEMS Type Condition ICD9-CM Code DNM73-GT Code Onset Dates Condition Status SNOMED Code Problem Mild persistent asthma without complication J45.30 Active 531858447 Problem Edema, unspecified type R60.9 Active 642551487 Problem Gastroesophageal reflux disease with esophagitis K21.0 Active 114614610 Problem Essential hypertension I10 Active 97703606 Problem Moderate persistent asthma with exacerbation J45.41 Active 785442258 Problem Other chronic pain G89.29 Active 64200032 Problem Esophageal abnormality K22.9 Active 90226455 Problem Hammer toe of right foot M20.41 Active 950332104 Problem Abnormal EKG R94.31 Active 791919536 Problem Right upper quadrant abdominal pain R10.11 Active [id number] ALLERGIES No Information ENCOUNTERS Encounter Location Date Diagnosis [place] [address] [address]- [address] Nov, Moderate persistent asthma with exacerbation J45.[address] [address]- [address] Nov, Low back pain M54.5 and Other chronic pain G89.29 [place] [address] [place] [id number] [place] [address] 04195- 6381 October, Abscess L02.[address] [address]- 7549 October, Cutaneous abscess of back excluding buttocks L02.212 and BMI 40.0-44.9, adult Z68.41 [place] [address] 13537- 0619 October, [place] [address] [place] [id number] [place] [address] 92962- 3751 October, [place] [address] [place] [id number] [place] [address] 81171- 7258 Sep, [place] [address] [place] [id number] [place] [address] 12998- 5161 Sep, Abscess L02.91 [place] [address] 21269- 5161 Sep, Right upper quadrant abdominal pain R10.11 ; Mild persistent asthma without complication J45.30 and BMI 40.0-44.9, adult Z68.41 [place] [address] 66403- 8244 Aug, Abscess L02.91 and BMI 40.0-44.9, adult Z68.41 [place] [address] [place] [id number] [place] [address] 93093- 6798 Aug, Edema, unspecified type R60.9 [place] [address] [place] [id number] [place] [address] 17943- 4425 Aug, Right upper quadrant abdominal pain R10.11 ; Abnormal EKG R94.31 ; Esophageal abnormality K22.9 and BMI 40.0-44.9, adult Z68.41 [place] [address] [place] [id number] [place] [address] 60973- 6718 Aug, Hammer toe of right foot M20.41 and Onychomycosis B35.1 [facility] [address] [place] [id number] [place] [address] 12996 -5768 Aug, Myalgia M79.1 [place] [address] [place] [id number] [place] [address] 52654- 1652 Aug, [place] [address] [place] [id number] [place] [address] 34276- 6331 Aug, Annual physical exam Z00.00 ; BMI 40.0-44.9, adult Z68.41 ; Mild persistent asthma without complication J45.30 ; Gastroesophageal reflux disease with esophagitis K21.0 ; Acute right-sided thoracic back pain M54.6 ; Trouble breathing R06.89 and Neck pain M54.2 [place] [address] [place] [id number] [place] [address] 11875- 2058 28 Jul, 2017 Mild persistent asthma without complication J45.30 [place] [address] [place] [id number] [place] [address] 80782- 3154 Jul, Edema, unspecified type R60.9 [place] [address] [place] [id number] [place] [address] 15228- 9545 Jun, Edema, unspecified type R60.9 [place] [address] [place] [id number] [place] [address] 75459- 6144 Jun, Moderate persistent asthma with exacerbation J45.41 [place] [id number] [place] [address] 26359- 2152 May, Edema, unspecified type R60.9 [place] [address] [place] [id number] [place] [address] 76952- 8420 May, Moderate persistent asthma with exacerbation J45.41 and Hammer toe of right foot M20.41 [place] [address] [place] [id number] [place] [address] 42527- 0416 04 May, 2017 Moderate persistent asthma without complication J45.40 ; Dysfunction of left eustachian tube H69.82 and BMI 45.0-49.9, adult Z68.42 [place] [address] [place] [id number] [place] [address] 14180- 4706 Apr, Edema, unspecified type R60.9 [place] [address] [place] [id number] [place] [address] 06242- 9198 Mar, Edema, unspecified type R60.9 [place] [address] [place] [id number] [place] [address] 47367- 0683 Feb, Edema, unspecified type R60.9 [facility] [address] [place] [id number] [place] [address] 12917- 4495 Jan, Edema, unspecified type R60.9 [facility] [address] [place] [id number] [place] [address] 61056- 2722 Jan, Mild persistent asthma without complication J45.30 [facility] [address] [place] [id number] [place] [address] 52517- 4811 Dec, Edema, unspecified type R60.9 [facility] [address] [place] [id number] [place] [address] 80077- 7104 Nov, Edema, unspecified type R60.9 and Essential hypertension I10 [place] [address] [place] [id number] [place] [address] 55909- 8974 October, Pain in left knee M25.562 [place] [address] 64716- 2861 October, Pain in left knee M25.562 [place] [address] [place] [id number] [place] [address] 36693- 4298 October, [place] [address] [place] [id number] [place] [address] 06363- 2486 Sep, [place] [address] [place] [id number] [place] [address] 37313- 6639 Sep, Mild persistent asthma without complication J45.30 [facility] [address] [place] [id number] [place] [address] 50508- 2749 Sep, Pain in left knee M25.562 [place] [address] [place] [id number] [place] [address] 24121- 3255 Aug, Acute nasopharyngitis J00 and Seasonal allergic rhinitis due to pollen J30.1 [facility] [address] [place] [id number] [place] [address] 58308- 4803 Aug, [place] [address] [place] [address]- 5968 13 Aug, 2016 Arthralgia, unspecified joint M25.50 and Pain in left knee M25.562 [place] [address] 38693- 8990 08 Aug, 2016 Mild persistent asthma without complication J45.30 [place] [address] [place] [id number] [place] [address] 32360- 7773 28 Jul, 2016 Mild persistent asthma without complication J45.30 [place] [address] [place] [id number] [place] [address] 15274- 0091 13 Jul, 2016 Pain in left knee M25.562 [place] [address] 75864- 3024 Jun, [facility] [address] [place] [id number] [place] [address] 21738 -6884 Jun, [place] [address] 91930- 2571 Jun, Mild persistent asthma without complication J45.30 [place] [address] [place] [id number] [place] [address] 39690- 0489 May, [place] [address] [place] [id number] [place] [address] 16995- 3943 Apr, Restrictive lung disease J98.4 [place] [address] [place] [id number] [place] [address] 07631- 6531 Apr, [place] [address] [place] [id number] [place] [address] 24727- 8211 Apr, Mild persistent asthma without complication J45.30 [facility] [address] [place] [id number] [place] [address] 04693 -1294 Mar, Sore throat J02.9 and Post-nasal drainage R09.82 [place] [address] [place] [id number] [place] [address] 89485- 3791 Mar, [place] [address] [address]- 3291 Feb, [facility] [address] [place] [id number] [place] [address] 46515- 5082 Feb, Mild persistent asthma without complication J45.30 [place] [address] [address]- 9815 Feb, Arthralgia, unspecified joint M25.50 [place] [address] [place] [id number] [place] [address] 03416- 6293 Feb, Edema, unspecified type R60.9 ; Arthralgia, unspecified joint M25.50 ; Mild persistent asthma without complication J45.30 ; Essential hypertension I10 ; Gastroesophageal reflux disease without esophagitis K21.9 and Major depressive disorder with single episode, remission status unspecified F32.9 [place] [id number] [place] [address] 65230- 1352 Jan, Edema, unspecified type R60.9 ; Essential hypertension I10 ; Mild persistent asthma without complication J45.30 ; Gastroesophageal reflux disease with esophagitis K21.0 ; Arthralgia, unspecified joint M25.50 and Major depressive disorder with single episode, remission status unspecified F32.9 [place] [address] [address]- 8405 Jan, [place] [address] [address]- 8742 Dec, [place] [address] [address]- 1243 Dec, [place] [id number] [place] [address] 87160- 1178 Dec, [place] [id number] [place] [address] 83018- 2487 Nov, Bilateral edema of lower extremity R60.0 [place] [id number] [place] [address] 38851- 0369 Nov, Bilateral edema of lower extremity R60.0 [facility] [address] [address] -0081 Nov, [facility] [address] [place] [id number] [place] [address] 05022- 7401 Nov, [facility] [id number] [place] [address] 20301- 2319 October, [facility] [address] [place] [id number] [place] [address] 62365- 4256 Sep, [facility] [id number] [place] [address] 63513- 2507 Aug, Acute sinusitis J01.90 [facility] [address] [place] [id number] [place] [address] 52486- 0803 Aug, [facility] [address] [place] [id number] [place] [address] 52032- 5496 Aug, [facility] [id number] [place] [address] 35728- 3706 Jul, [facility] [address] [place] [id number] [place] [address] 34366- 4028 Jul, Pharyngitis J02.9 [facility] [address] [address]- 7568 Jul, [facility] [id number] [place] [address] 82908- 2438 Jun, Pain in left knee M25.562 [facility] [address] [address]- 5309 Jun, [facility] [address] [place] [id number] [place] [address] 30710 -9298 May, Upper respiratory symptom R09.89 [facility] [address] [address]- 3871 May, [facility] [address] [place] [address]- 6862 Apr, Costochondritis M94.0 and Knee pain, left M25.562 [facility] [address] [place] [address] 2546 Apr, [facility] [address] [place] [id number] [place] [address]- 2587 Mar, Eustachian tube dysfunction, left H69.82 [facility] [address] [place] [id number] [place] [address] 2542 Mar, [facility] [address] [place] [id number] [place] [address], [place] [address]- 3526 Mar, [facility] [address] [place] [id number] 8146 Mar, [facility] [address] [place] [id number] [place] [address], [place] [address]- 7514 Feb, [facility] [address] [address] 2549 Feb, [facility] [address] [place] [id number] [place] [address]- 5791 Feb, [facility] [address] [address]- 0174 Jan, Asthma 493.90 [facility] [address] [place] [id number] [address]- 6796 Dec, [facility] [address] [place] [id number] [address] 254 Dec, [facility] [address] [place] [id number] [address] 2546 Dec, [facility] [address] [place] [id number] [address]- 2546 Dec, [facility] [address] [place] [address] 58148- 7251 Dec, Asthma, unspecified, unspecified status 493.90 [facility] [address] [address]- 1415 Nov, [facility] [address] [place] [address] 01320- 4116 Nov, Asthma, unspecified, unspecified status 493.90 [facility] [address] [place] [id number] [place] [address] 48439- 8102 October, Asthma, unspecified, unspecified status 493.90 [facility] [address] [address]- 1525 October, [facility] [address] [place] [id number] [place] [address] 191483- 2267 October, Contact dermatitis 692.9 and Candidiasis of skin 112.3 [facility] [address] [place] [id number] [place] [address] 10307- 7487 Sep, [facility] [address] [place] [id number] [place] [address] 32761- 9298 Sep, [facility] [address] [place] [id number] [place] [address] 25949- 1269 Aug, [facility] [address] [address]- 0289 Aug, [facility] [address] [address]- 1775 Aug, [facility] [address] [address]- 2467 Aug, [facility] [id number] [place] [address] 70211- 8709 Jul, [facility] [address] [address]- 9026 Jul, [facility] [id number] [place] [address] 88662- 7960 Jun, [facility] [place] [facility] [address] [id number] [place] [address]- 3926 Jun, [facility] [place] [facility] [address] [id number] [place] [address]- 0587 May, [facility] [place] [facility] [address] [id number] [place] [address]- 2450 May, [facility] [place] [facility] [address] [id number] [place] [address]- 1478 May, [facility] [place] [facility] [address] [id number] [place] [address]- 3633 May, [facility] [place] [facility] [address] [id number] [place] [address]- 7724 May, [facility] [place] [facility] [address] [id number] [place] [address]- 6025 May, [facility] [place] [facility] [address] [id number] [place] [address]- 5946 Apr, [facility] [place] [facility] [address] [id number] [place] [address]- 8609 Apr, [facility] [place] [facility] [address] [id number] [place] [address]- 3286 15 Feb, 2014 [facility] [place] [facility] [address] [id number] [place] [address]- 0669 15 Feb, 2014 [facility] [place] [facility] [address] [id number] [place] [address]- 0071 10 Feb, 2014 [facility] [place] [facility] [address] [id number] [place] [address]- 2549 10 Feb, 2014 [facility] [place] [facility] [address] [id number] [place] [address]- 1632 05 Feb, 2014 [facility] [place] [facility] [address] [id number] [place] [address]- 9331 05 Feb, 2014 [facility] [place] [facility] [address] [id number] [place] [address]- 2592 Jan, [facility] [place] [facility] [address] [id number] [place] [address]- 0242 Jan, [facility] [place] [facility] [address] [id number] [place] [address]- 2394 Jan, [facility] [place] [facility] [address] [id number] [place] [address]- 0531 Jan, [facility] [place] [facility] [address] [id number] [place] [address]- 3463 Jan, [facility] [place] [facility] [address] [id number] [place] [address]- 4067 Jan, [facility] [place] [facility] [address] [id number] [place] [address]- 5289 Dec, [facility] [place] [facility] [address] [id number] [place] [address]- 3488 Dec, [facility] [place] [facility] [address] [id number] [place] [address]- 0127 Nov, [facility] [place] [facility] [address] [id number] [place] [address]- 9665 Nov, [facility] [place] [facility] [address] [id number] [place] [address]- 8981 Nov, [facility] [place] [facility] [address] [id number] [place] [address]- 6817 Nov, [facility] [place] [facility] [address] [id number] [place] [address]- 2296 Nov, [facility] [place] [facility] [address] [id number] [place] [address]- 8851 Nov, [facility] [place] [facility] [address] [id number] [place] [address]- 8044 Nov, [facility] [place] [facility] [address] [id number] [place] [address]- 7811 Nov, [facility] [place] [facility] [address] [id number] [place] [address]- 9610 Nov, [facility] [place] [facility] [address] [id number] [place] [address]- 4267 Nov, [facility] [place] [facility] [address] [id number] [place] [address]- 9623 Nov, [facility] [place] [facility] [address] [id number] [place] [address]- 1263 Nov, [facility] [place] [facility] [address] [id number] [place] [address]- 9689 Nov, [facility] [place] [facility] [address] [id number] [place] [address]- 3291 October, [facility] [place] [facility] [address] [id number] [place] [address]- 9187 October, [facility] [place] [facility] [address] [id number] [place] [address]- 0418 October, [facility] [place] [facility] [address] [id number] [place] [address]- 3656 October, [facility] [place] [facility] [address] [id number] [place] [address]- 6807 Sep, [facility] [place] [facility] [address] [id number] [place] [address]- 0348 Sep, [facility] [place] [facility] [address] [id number] [place] [address]- 6889 Sep, [facility] [place] [facility] [address] [id number] [place] [address]- 7390 Sep, [facility] [place] [facility] [address] [id number] [place] [address]- 8594 Aug, [facility] [place] [facility] [address] [id number] [place] [address]- 8292 Aug, [facility] [place] [facility] [address] [id number] [place] [address]- 1321 Jul, [facility] [place] [facility] [address] [id number] [place] [address]- 8127 Jul, [facility] [place] [facility] [address] [id number] [place] [address]- 4635 Jun, [facility] [place] [facility] [address] [facility] [id number] [place] [address]- 5930 Jun, [facility] [place] [facility] [address] [id number] [address]- 6754 Mar, [facility] [place] [facility] [address] [id number] [place] [address]- 9663 Mar, [facility] [place] [facility] [address] [id number] [place] [address]- 9335 Mar, [facility] [place] [facility] [address] [id number] [place] [address]- 5266 Mar, [facility] [place] [facility] [address] [id number] [address]- 1295 Mar, [facility] [place] [facility] [address] [id number] [address]- 8960 Feb, [facility] [place] [facility] [address] [id number] [place] [address]- 7386 Feb, [facility] [place] [facility] [address] [id number] [place] [address]- 8208 Dec, [facility] [place] [facility] [address] [id number] [place] [address]- 3584 Nov, [facility] [place] [facility] [address] [id number] [place] [address]- 5151 October, [facility] [place] [facility] [address] [id number] [address]- 0886 Sep, [facility] [place] [facility] [address] [id number] [place] [address]- 2546 Sep, [facility] [place] [facility] [address] [id number] [place] [address]- 4282 29 Aug, 2012 [facility] [address] [id number] [place] [address]- 6786 28 Aug, 2012 [facility] [address] [id number] [place] [address]- 7146 13 Aug, 2012 [facility] [address] [id number] [place] [address]- 5968 12 Aug, 2012 [facility] [address] [id number] [place] [address]- 2740 14 Jun, 2012 [facility] [address] [id number] [place] [address] Jun, [facility] [address] [id number] [place] [address] Jun, [facility] [address] [id number] [place] [address] May, [facility] [address] [id number] [place] [address] May, [facility] [address] [id number] [place] [address] Apr, [facility] [address] [id number] [place] [address] Apr, [facility] [address] [id number] [place] [address] Apr, [facility] [address] [id number] [place] [address] Apr, [facility] [place] [facility] [address] [id number] [place] [address] Apr, [facility] [address] [id number] [place] [address] Apr, [facility] [address] [id number] [place] [address] Apr, [facility] [place] [facility] [address] [id number] [place] [address] Mar, [facility] [place] [facility] [address] [id number] [place] [address] Mar, [facility] [place] [facility] [address] [id number] [place] [address] 18 Feb, 2012 [facility] [place] [facility] [address] [id number] [place] [address] 17 Feb, 2012 [facility] [place] [facility] [address] [id number] [place] [address] 13 Feb, 2012 [facility] [place] [facility] [address] [id number] [place] [address] 15 Jan, 2012 [facility] [place] [facility] [address] [id number] [place] [address] Jan, [facility] [place] [facility] [address] [id number] [place] [address] Jan, [facility] [place] [facility] [address] [id number] [place] [address] Jan, [facility] [place] [facility] [address] [id number] [place] [address] Dec, [facility] [place] [facility] [address] [id number] [place] [address] Dec, [facility] [place] [facility] [address] [id number] [address] Dec, [facility] [place] [facility] [address] [id number] [place] [address] Dec, [facility] [place] [facility] [address] [id number] [place] [address] Dec, [facility] [place] [facility] [address] [id number] [address] Nov, [facility] [place] [facility] [address] [id number] [address] 14 Nov, 2011 [facility] [address] [id number] [place] [address] Nov, [facility] [place] [facility] [address] [id number] [place] [address] Nov, [facility] [place] [facility] [address] [facility] [id number] [place] [address] October, [facility] [place] [facility] [address] [id number] [place] [address] October, [facility] [address] [id number] [place] [address] October, [facility] [place] [facility] [address] [id number] [place] [address] October, [facility] [address] [id number] [place] [address] October, [facility] [place] [facility] [address] [id number] [place] [address] Sep, [facility] [place] [facility] [address] [id number] [place] [address] Sep, [facility] [place] [facility] [address] [facility] [id number] [place] [address] Sep, [facility] [place] [facility] [address] [id number] [place] [address] Sep, [facility] [place] [facility] [address] [address] [id number] [place] [address] Sep, [facility] [place] [facility] [address] [id number] [place] [address] 29 Aug, 2011 [facility] [place] [facility] [address] [id number] [place] [address] Aug, [facility] [place] [facility] [address] [facility] [id number] [place] [address] Aug, [facility] [place] [facility] [address] [id number] [place] [address] 26 Aug, 2011 [facility] [address] [id number] [place] [address] 23 Aug, 2011 [facility] [place] [facility] [address] [id number] [place] [address] 20 Aug, 2011 [facility] [place] [facility] [address] [id number] [place] [address] 19 Aug, 2011 [facility] [place] [facility] [address] [id number] [place] [address] 17 Aug, 2011 [facility] [place] [facility] [address] [id number] [place] [address] 18 Jun, 2011 [facility] [place] [facility] [address] [id number] [place] [address] 12 Jun, 2011 [facility] [place] [facility] [address] [id number] [place] [address] 11 Jun, 2011 [facility] [address] [id number] [place] [address] 10 Jun, 2011 [facility] [address] [id number] [place] [address] 06 Jun, 2011 [facility] [address] [id number] [place] [address] May, [facility] [place] [facility] [address] [id number] [place] [address] 29 Apr, 2011 [facility] [place] [facility] [address] [id number] [place] [address] October, [facility] [place] [facility] [address] [id number] [place] [address] May, [facility] [place] [facility] [address] [id number] [place] [address] May, [facility] [place] [facility] [address] [id number] [place] [address] Apr, [facility] [address] [id number] [address] Jan, [facility] [id number] [address] Dec, [facility] [id number] [address] Sep, [facility] [id number] [address] Sep, [facility] [id number] [address] Jul, [facility] [id number] [address] May, [facility] [id number] [address] Jan, IMMUNIZATIONS No Known Immunizations SOCIAL HISTORY [...]
--- OUTSIDE RECORDS SUMMARY | 2018-05-04 07:43 | XMS REPORT ---
Author Author JENNIFER CANCINO Organization [facility] Address [address] [place] [address] Care Team Providers Care Peoplesoft Consultant Name Role Phone JENNIFER CANCINO Unavailable PROBLEMS Type Condition ICD9-CM Code NLW13-AU Code Onset Dates Condition Status SNOMED Code Problem Mild persistent asthma without complication J45.30 Active 800824338 Problem Edema, unspecified type R60.9 Active 376736380 Problem Gastroesophageal reflux disease with esophagitis K21.0 Active 193835441 Problem Essential hypertension I10 Active 51749064 Problem Moderate persistent asthma with exacerbation J45.41 Active 145476747 Problem Other chronic pain G89.29 Active 64061397 Problem Esophageal abnormality K22.9 Active 00777110 Problem Hammer toe of right foot M20.41 Active 146248675 Problem Abnormal EKG R94.31 Active 772630819 Problem Right upper quadrant abdominal pain R10.11 Active 677538208 ALLERGIES Substance Reaction Event Type Date Status Naprosyn itching Drug Allergy May, Active Micardis Unknown Drug Allergy May, Active Hydrocodone Bitartrate itching Drug Allergy May, Active Celebrex swelling Drug Allergy May, Active Doxycycline scalp rash Drug Allergy May, Active ENCOUNTERS Encounter Location Date Diagnosis [facility] [id number] [address] Nov, Moderate persistent asthma with exacerbation J45.41 [facility] [id number] [place] [address] 92701- 4771 Nov, Low back pain M54.5 and Other chronic pain G89.29 [facility] [address] [address] October, Abscess L02.91 [facility] [address] [place] [address] 53007- 7638 October, Cutaneous abscess of back excluding buttocks L02.212 and BMI 40.0-44.9, adult Z68.41 [address] [address]- 5[address] October, [place] [address] 0[address]27- 7158 October, [address] [address] 08372- 7668 Sep, [place] [address] 16560- 9978 Sep, Abscess L02.91 [address] [address] 00826- 8478 Sep, Right upper quadrant abdominal pain R10.11 ; Mild persistent asthma without complication J45.30 and BMI 40.0-44.9, adult Z68.41 [place] [address] 52970- 9128 Aug, Abscess L02.91 and BMI 40.0-44.9, adult Z68.41 [place] [address] 26687- 7946 Aug, Edema, unspecified type R60.9 [place] [id number] [place] [address] 65291- 5466 Aug, Right upper quadrant abdominal pain R10.11 ; Abnormal EKG R94.31 ; Esophageal abnormality K22.9 and BMI 40.0-44.9, adult Z68.41 [place] [id number] [place] [address] 33947- 8553 Aug, Hammer toe of right foot M20.41 and Onychomycosis B35.1 [facility] [id number] [place] [address] 87969 -5598 Aug, Myalgia M79.1 [address] [place] [address]- 17[address] Aug, [place] [address] 59235- 4628 Aug, Annual physical exam Z00.00 ; BMI 40.0-44.9, adult Z68.41 ; Mild persistent asthma without complication J45.30 ; Gastroesophageal reflux disease with esophagitis K21.0 ; Acute right-sided thoracic back pain M54.6 ; Trouble breathing R06.89 and Neck pain M54.2 [place] [address] 02222- 3983 Jul, Mild persistent asthma without complication J45.30 [place] [address] 83644- 3432 Jul, Edema, unspecified type R60.[address] [address]- 7811 Jun, Edema, unspecified type R60.9 [place] [address] 08723- 4202 Jun, Moderate persistent asthma with exacerbation J45.41 [place] [address] 41772- 0630 May, Edema, unspecified type R60.9 [place] [id number] [place] [address] 14071- 2903 May, Moderate persistent asthma with exacerbation J45.41 and Hammer toe of right foot M20.41 [address] [address] 20009- 4130 04 May, 2017 Moderate persistent asthma without complication J45.40 ; Dysfunction of left eustachian tube H69.82 and BMI 45.0-49.9, adult Z68.42 [place] [address] 19450- 3794 Apr, Edema, unspecified type R60.9 [address] [place] [address] [place] [address]- 9811 Mar, Edema, unspecified type R60.9 [facility] [id number] [place] [address] 51076- 4526 Feb, Edema, unspecified type R60.9 [facility] [id number] [place] [address] 20030- 0910 Jan, Edema, unspecified type R60.9 [facility] [id number] [place] [address] 08251- 5126 Jan, Mild persistent asthma without complication J45.30 [facility] [id number] [place] [address] 95078- 7969 Dec, Edema, unspecified type R60.9 [facility] [id number] [place] [address] 14471- 1893 Nov, Edema, unspecified type R60.9 and Essential hypertension I10 [facility] [id number] [place] [address] 09355- 7711 October, Pain in left knee M25.562 [facility] [id number] [place] [address] 32654- 3040 October, Pain in left knee M25.562 [facility] [id number] [place] [address] 69253- 5521 October, [facility] [id number] [place] [address] 85051- 3325 Sep, [facility] [id number] [place] [address] 42490- 3639 Sep, Mild persistent asthma without complication J45.30 [facility] [id number] [place] [address] 38866- 5578 Sep, Pain in left knee M25.562 [facility] [id number] [place] [address] 49451- 8976 Aug, Acute nasopharyngitis J00 and Seasonal allergic rhinitis due to pollen J30.1 [facility] [id number] [place] [address] 23530- 0715 16 Aug, 2016 [facility] [id number] [place] [address] 28554- 7267 Aug, Arthralgia, unspecified joint M25.50 and Pain in left knee M25.562 [facility] [address] 98294- 6651 Aug, Mild persistent asthma without complication J45.30 [place] [id number] [place] [address] 52436- 5598 28 Jul, 2016 Mild persistent asthma without complication J45.30 [address] [id number] [place] [address] 14657- 0329 13 Jul, 2016 Pain in left knee M25.562 [address] [address] 18825- 8742 Jun, [facility] [id number] [place] [address] 10050 -9848 Jun, [place] [id number] [place] [address] 17114- 6382 Jun, Mild persistent asthma without complication J45.30 [place] [id number] [place] [address] 25386- 7673 May, [facility] [id number] [place] [address] 03865- 5749 Apr, Restrictive lung disease J98.4 [place] [id number] [place] [address] 20919- 0895 Apr, [place] [id number] [place] [address] 53348- 4093 Apr, Mild persistent asthma without complication J45.30 [facility] [id number] [place] [address] 09748 -9439 Mar, Sore throat J02.9 and Post-nasal drainage R09.82 [facility] [address] [address]- 8531 Mar, [facility] [address] [address]- 8659 Feb, [facility] [id number] [place] [address] 05351- 6708 Feb, Mild persistent asthma without complication J45.30 [facility] [address] [address]- 3474 Feb, Arthralgia, unspecified joint M25.50 [place] [id number] [place] [address] 92750- 0859 Feb, Edema, unspecified type R60.9 ; Arthralgia, unspecified joint M25.50 ; Mild persistent asthma without complication J45.30 ; Essential hypertension I10 ; Gastroesophageal reflux disease without esophagitis K21.9 and Major depressive disorder with single episode, remission status unspecified F32.9 [place] [address] [place] [address] 98948- 0702 Jan, Edema, unspecified type R60.9 ; Essential hypertension I10 ; Mild persistent asthma without complication J45.30 ; Gastroesophageal reflux disease with esophagitis K21.0 ; Arthralgia, unspecified joint M25.50 and Major depressive disorder with single episode, remission status unspecified F32.9 [facility] [address] [address]- 9654 Jan, [facility] [address] [address]- 0603 Dec, [facility] [address] [place] [address] 51633- 5264 Dec, [facility] [address] [address]- 7437 Dec, [place] [address]- 5625 Nov, Bilateral edema of lower extremity R60.0 [facility] [address] [address]- 7296 Nov, Bilateral edema of lower extremity R60.0 [facility] [address] [address] -8406 Nov, [facility] [address] [address]- 0520 Nov, [facility] [address] [address]- 0622 October, [facility] [address] [address]- 1478 Sep, [facility] [address] [address]- 6157 Aug, Acute sinusitis J01.90 [facility] [address] [address]- 6344 Aug, [facility] [address] [address]- 0877 Aug, [facility] [address] [address]- 8239 Jul, [facility] [address] [address]- 1176 Jul, Pharyngitis J02.9 [facility] [address] [address]- 2544 Jul, [facility] [address] [address]- 2546 Jun, Pain in left knee M25.562 [facility] [address] [address]- 2546 Jun, [facility] [id number] [address] -9211 May, Upper respiratory symptom R09.89 [facility] [id number] [place] [address] 09484- 7872 May, [facility] [id number] [place] [address] 04740- 3751 Apr, Costochondritis M94.0 and Knee pain, left M25.562 [facility] [id number] [place] [address] 21789- 2373 Apr, [facility] [id number] [place] [address] 24150- 9525 Mar, Eustachian tube dysfunction, left H69.82 [facility] [id number] [place] [address] 26437- 3487 Mar, [facility] [id number] [place] [address] 30188- 8082 Mar, [facility] [id number] [place] [address] 975893- 2958 Mar, [facility] [id number] [place] [address] 01730- 6963 Feb, [facility] [id number] [place] [address] 19854- 4841 Feb, [facility] [id number] [place] [address] 77654- 6156 Feb, [facility] [address] [place] [address] 41126- 5120 Jan, Asthma 493.90 [facility] [id number] [place] [address] 79641- 2603 Dec, [facility] [id number] [place] [address] 60424- 2073 Dec, [facility] [id number] [place] [address] 01972- 3125 Dec, [facility] [address] [address]- 9420 Dec, [facility] [address] [address]- 9736 Dec, Asthma, unspecified, unspecified status 493.90 [facility] [address] [address]- 6466 Nov, [facility] [address] [address]- 6946 Nov, Asthma, unspecified, unspecified status 493.90 [facility] [id number] [place] [address] 89961- 0366 October, Asthma, unspecified, unspecified status 493.90 [facility] [address] [address]- 1826 October, [facility] [address] [address]- 1706 October, Contact dermatitis 692.9 and Candidiasis of skin 112.3 [facility] [address] [place] [address] 63107- 7718 Sep, [facility] [address] [address]- 8949 Sep, [facility] [address] [address]- 9626 Aug, [facility] [address] [address]- 3006 Aug, [facility] [address] [address]- 2296 Aug, [facility] [address] [address]- 2546 Aug, [facility] [address] [address]- 3526 Jul, [facility] [place] [facility] [address] [id number] [place] [address]- 8311 Jul, [facility] [place] [facility] [address] [id number] [place] [address]- 6720 Jun, [facility] [place] [facility] [address] [id number] [place] [address]- 9108 Jun, [facility] [place] [facility] [address] [id number] [place] [address]- 0087 May, [facility] [place] [facility] [address] [id number] [place] [address]- 5407 May, [facility] [place] [facility] [address] [id number] [place] [address]- 2042 May, [facility] [place] [facility] [address] [id number] [place] [address]- 2028 May, [facility] [place] [facility] [address] [id number] [place] [address]- 5435 May, [facility] [place] [facility] [address] [id number] [place] [address]- 4683 May, [facility] [place] [facility] [address] [id number] [place] [address]- 9346 Apr, [facility] [place] [facility] [address] [id number] [place] [address]- 0237 Apr, [facility] [place] [facility] [address] [id number] [place] [address]- 3902 15 Feb, 2014 [facility] [place] [facility] [address] [id number] [place] [address]- 2541 15 Feb, 2014 [facility] [place] [facility] [address] [id number] [place] [address]- 1344 Feb, [facility] [place] [facility] [address] [id number] [place] [address]- 4414 Feb, [facility] [place] [facility] [address] [id number] [place] [address]- 7962 Feb, [facility] [place] [facility] [address] [id number] [place] [address]- 5788 Feb, [facility] [place] [facility] [address] [id number] [place] [address]- 7334 Jan, [facility] [place] [facility] [address] [id number] [place] [address]- 5908 Jan, [facility] [place] [facility] [address] [id number] [place] [address]- 8162 Jan, [facility] [place] [facility] [address] [id number] [place] [address]- 3070 Jan, [facility] [place] [facility] [address] [id number] [place] [address]- 0753 Jan, [facility] [place] [facility] [address] [id number] [place] [address]- 7699 Jan, [facility] [place] [facility] [address] [id number] [place] [address]- 2158 Dec, [facility] [place] [facility] [address] [id number] [place] [address]- 4519 Dec, [facility] [place] [facility] [address] [facility] [id number] [place] [address]- 8229 Nov, [facility] [place] [facility] [address] [id number] [place] [address]- 6731 Nov, [facility] [place] [facility] [address] [id number] [place] [address]- 9224 Nov, [facility] [place] [facility] [address] [id number] [place] [address]- 0936 Nov, [facility] [place] [facility] [address] [id number] [place] [address]- 2167 Nov, [facility] [place] [facility] [address] [id number] [place] [address]- 2057 Nov, [facility] [place] [facility] [address] [id number] [place] [address]- 6237 Nov, [facility] [place] [facility] [address] [id number] [place] [address]- 1982 Nov, [facility] [place] [facility] [address] [id number] [place] [address]- 4033 Nov, [facility] [place] [facility] [address] [id number] [place] [address]- 9230 Nov, [facility] [place] [facility] [address] [id number] [place] [address]- 7601 Nov, [facility] [place] [facility] [address] [id number] [place] [address]- 9025 Nov, [facility] [place] [facility] [address] [id number] [place] [address]- 8000 Nov, [facility] [place] [facility] [address] [id number] [place] [address]- 0533 October, [facility] [place] [facility] [address] [id number] [place] [address]- 1867 October, [facility] [place] [facility] [address] [id number] [place] [address]- 0966 October, [facility] [place] [facility] [address] [id number] [place] [address]- 3550 October, [facility] [place] [facility] [address] [id number] [place] [address]- 0955 Sep, [facility] [place] [facility] [address] [id number] [place] [address]- 8717 Sep, [facility] [place] [facility] [address] [id number] [place] [address]- 9072 Sep, [facility] [place] [facility] [address] [id number] [place] [address]- 6636 Sep, [facility] [place] [facility] [address] [id number] [place] [address]- 8261 Aug, [facility] [place] [facility] [address] [id number] [place] 3499 Aug, [facility] [place] [facility] [address] [id number] [place] [address]- 7790 Jul, [facility] [place] [facility] [address] [id number] [place] [address]- 1802 Jul, [facility] [place] [facility] [address] [id number] [place] [address]- 1026 Jun, [facility] [place] [facility] [address] [id number] [place] [address]- 0455 Jun, [facility] [place] [facility] [address] [id number] [place] [address]- 3234 Mar, [facility] [place] [facility] [address] [id number] [place] [address]- 3130 Mar, [facility] [place] [facility] [address] [id number] [place] [address]- 8510 Mar, [facility] [place] [facility] [address] [id number] [place] [address]- 6949 Mar, [facility] [place] [facility] [address] [id number] [place] [address]- 4278 Mar, [facility] [place] [facility] [address] [id number] [place] [address]- 4310 Feb, [facility] [place] [facility] [address] [id number] [place] [address]- 2405 Feb, [facility] [place] [facility] [address] [id number] [place] [address]- 9041 Dec, [facility] [place] [facility] [address] [id number] [place] [address]- 6343 Nov, [facility] [place] [facility] [address] [id number] [place] [address] 2546 October, [facility] [place] [facility] [address] [id number] [place] [address]- 9710 05 Sep, 2012 [facility] [address] [id number] [place] [address]- 2547 Sep, [facility] [address] [id number] [place] [address]- 2966 29 Aug, 2012 [facility] [address] [id number] [place] [address]- 1196 28 Aug, 2012 [facility] [address] [id number] [place] [address]- 6456 13 Aug, 2012 [facility] [address] [id number] [place] [address]- 7629 12 Aug, 2012 [facility] [address] [id number] [place] [address]- 2431 14 Jun, 2012 [facility] [address] [id number] [place] [address]- 4623 Jun, [facility] [address] [id number] [place] [address]- 3837 Jun, [facility] [address] [id number] [place] [address]- 4133 May, [facility] [address] [id number] [place] [address]- 4317 May, [facility] [address] [id number] [place] [address]- 9011 Apr, [facility] [address] [id number] [place] [address] Apr, [facility] [address] [id number] [place] [address] Apr, [facility] [address] [id number] [place] [address] Apr, [facility] [address] [id number] [place] [address] Apr, [facility] [place] [facility] [address] [id number] [place] [address] Apr, [facility] [place] [facility] [address] [id number] [place] [address] Apr, [facility] [place] [facility] [address] [id number] [place] [address] Mar, [facility] [place] [facility] [address] [id number] [place] [address] Mar, [facility] [place] [facility] [address] [id number] [place] [address] Feb, [facility] [place] [facility] [address] [id number] [place] [address] 17 Feb, 2012 [facility] [place] [facility] [address] [id number] [place] [address] Feb, [facility] [place] [facility] [address] [id number] [place] [address] Jan, [facility] [place] [facility] [address] [id number] [place] [address] Jan, [facility] [place] [facility] [address] [id number] [place] [address] Jan, [facility] [place] [facility] [address] [id number] [place] [address] Jan, [facility] [place] [facility] [address] [id number] [place] [address] Dec, [facility] [place] [facility] [address] [id number] [place] [address] Dec, [facility] [place] [facility] [address] [id number] [place] [address] Dec, [facility] [place] [facility] [address] [id number] [place] [address] Dec, [facility] [place] [facility] [address] [id number] [place] [address] Dec, [facility] [address] [id number] [place] [address] Nov, [facility] [place] [facility] [address] [id number] [place] [address] 14 Nov, 2011 [facility] [place] [facility] [address] [id number] [place] [address] Nov, [facility] [place] [facility] [address] [id number] [place] [address] Nov, [facility] [place] [facility] [address] [id number] [place] [address] October, [facility] [place] [facility] [address] [id number] [place] [address] October, [facility] [address] [id number] [place] [address] October, [facility] [place] [facility] [address] [id number] [place] [address] October, [facility] [place] [facility] [address] [id number] [place] [address] October, [facility] [place] [facility] [address] [id number] [place] [address] Sep, [facility] [place] [facility] [address] [id number] [place] [address] Sep, [facility] [place] [facility] [address] [id number] [place] [address] Sep, [facility] [place] [facility] [address] [id number] [place] [address] Sep, [facility] [place] [facility] [address] [id number] [place] [address] Sep, [facility] [place] [facility] [address] [id number] [place] [address] Aug, [facility] [place] [facility] [address] [id number] [place] [address] 28 Aug, 2011 [facility] [address] [id number] [place] [address] 27 Aug, 2011 [facility] [place] [facility] [address] [address] [id number] [place] [address] 26 Aug, 2011 [facility] [address] [id number] [place] [address] 23 Aug, 2011 [facility] [address] [id number] [place] [address] 20 Aug, 2011 [facility] [address] [id number] [place] [address] 19 Aug, 2011 [facility] [address] [id number] [place] [address] 17 Aug, 2011 [facility] [address] [id number] [place] [address] 18 Jun, 2011 [facility] [address] [id number] [place] [address] Jun, [facility] [address] [id number] [place] [address] Jun, [facility] [address] [id number] [place] [address] Jun, [facility] [address] [id number] [place] [address] Jun, [facility] [address] [id number] [place] [address] May, [facility] [place] [facility] [address] [id number] [place] [address] Apr, [facility] [place] [facility] [address] [id number] [place] [address] October, [facility] [address] [id number] [place] [address] May, [facility] [id number] [address] May, [facility] [id number] [address] Apr, [facility] [id number] [address] Jan, [facility] [id number] [place] [id number] Dec, [facility] [id number] [place] [address] Sep, [facility] [id number] [place] [id number] Sep, [facility] [id number] [place] [id number] Jul, [facility] [id number] [place] [address] May, [facility] [id number] [address] Jan, IMMUNIZATIONS No Known Immunizations SOCIAL HISTORY Never Assessed REASON FOR VISIT Asthma, left foot pain--Nayely Fish MA PLAN OF CARE VITAL SIGNS Height 64 in 2017-05-15 Weight 264.4 lbs 2017-05-15 Temperature 98.7 degrees Fahrenheit 2017-05-15 Heart Rate 68 bpm 2017-05-15 Respiratory Rate 22 2017-05-15 Oximetry 98 % 2017-05-15 BMI 45.38 kg/m2 2017-05-15 Blood pressure systolic 122 mmHg 2017-05-15 Blood pressure diastolic 78 mmHg 2017-05-15 MEDICATIONS Medication Instructions Dosage Frequency Start Date End Date Duration Status Albuterol Sulfate (2.5 MG/3ML) 0.083% inhale 3 milliliters (2.5 mg) by nebulization route 4 times per day PRN for wheezing or cough Aug, Active Paxil 40 mg Orally Once a day 1 tablet in the morning 24h Active PredniSONE 20 mg Orally Once a day x 7 days then 1 daily x 7 days, then 1/2 daily x 6 days. 2 tablets May, Active Wellbutrin XL 150 MG Orally Once a day 1 tablet in the morning 24h Active Omeprazole 20 mg 1 capsule 24h Active Losartan Potassium 25 MG 1 tablet 24h 30 Active Flonase 50 MCG/ACT Nasally twice a day 1 spray in each nostril 12h May, 30 day(s) Active Ibuprofen 800 MG Orally Three times a day 1 tablet 8h Active Advair Diskus 250-50 MCG/DOSE Inhalation Twice a day 1 puff 12h Nov, 90 days Active Cyclobenzaprine HCl 5 MG TAKE ONE TABLET BY MOUTH TWICE DAILY 30 Not-Taking PredniSONE 20 mg Orally Once a dayX 5 days then 1/2 tab X 5 days 1 tablet May, Active Proventil HFA 108 (90 Base) MCG/ACT Inhalation every 4 hrs 2 puffs as needed 4h Feb, Active Spiriva Respimat 1.25 MCG/ACT Inhalation Once a day 2 puffs 24h Aug, 90 days Active Hydrochlorothiazide 50 MG TAKE ONE TABLET BY MOUTH ONCE DAILY 30 Active Tramadol HCl 50 MG Orally 1 tablet 3 times a day as needed 1 tablet 28 days Active RESULTS No Results PROCEDURES Procedure Date Ordered Result Body Site MEASURE BLOOD OXYGEN LEVEL May 15, 2017 INSTRUCTIONS MEDICATIONS ADMINISTERED No Known Medications [...]
--- OUTSIDE RECORDS SUMMARY | 2018-05-04 07:48 | XMS REPORT | Continuity of Care Document ---
Author Author [facility] Address Unknown Phone Unavailable Allergies Active Description [...] Allergy 01/12/2012 Yes No Known Drug Allergies [id number] Drug Allergy Unknown N/A 01/24/2014 Yes hydrocodone Drug Allergy N/A N/A 02/15/2014 Yes meloxicam [id number] Drug Allergy Unknown N/A 08/31/2017 Yes naproxen [id number] Drug Allergy Unknown N/A 08/31/2017 Yes celecoxib [id number] Drug Allergy Mild N/A 10/06/2017 Medications There is no data. Problems Date [...] Central Origin With Positional Nystagmus 12/27/2008 PRUITT DO GEGE K 401.9 HYPERTENSION (SYSTEMIC) 12/27/2008 SONAL DOMUSTAPHAA K 719.47 Joint Pain In The Toes [...] 719.47 Joint Pain In The Toes 12/27/2008 ILANA FORESTRY TECHNICIAN, OSWALD R 386.2 Vertigo Of Central Origin With Positional [...] APRN T 843.9 Hip Sprain Right 01/25/2009 ILANA RIVERA OSWALD R 843.8 Hip Sprain Hamstring Insertion Right 01/25/2009 ILANA RIVERA OSWALD R 843.9 Hip Sprain Right 01/25/2009 [...] T 843.9 Hip Sprain Right 01/25/2009 JENNIFER CACNINO APRN T 843.8 Hip Sprain Hamstring Insertion Right 01/25/2009 JENNIFER CANCINO APRN T 843.9 Hip Sprain Right 01/30/2009 JENNIFER CANCINO APRN 465.9 UPPER RESPIRATORY INFECTION 01/30/2009 465.9 UPPER RESPIRATORY INFECTION 01/30/2009 HUROSALIND MIRELES MD 465.9 UPPER RESPIRATORY INFECTION 01/30/2009 465.9 UPPER RESPIRATORY INFECTION 01/30/2009 465.9 UPPER RESPIRATORY INFECTION 01/30/2009 PRUITT DO GEGE K 465.9 Upper Respiratory Infection 01/30/2009 465.9 Upper Respiratory Infection 01/30/2009 JULITA VICTORIANJENNIFER T 465.9 Upper Respiratory Infection 01/30/2009 PRUITT DO GEGE K 465.9 Upper Respiratory Infection 01/30/2009 JENNIFER CANCINO APRN T 465.9 Upper Respiratory Infection 01/30/2009 JULITA VICTORIAN, JENNIFER T 465.9 Upper Respiratory Infection 01/30/2009 JULITA FORESTRY TECHNICIAN, JENNIFER T 465.9 Upper Respiratory Infection 01/30/2009 ILANA VICTORIAN, OSWALD R 465.9 Upper Respiratory Infection 01/30/2009 JULITA VICTORIANJENNIFER T 465.9 Upper Respiratory Infection 01/30/2009 JULITA FORESTRY TECHNICIAN, JENNIFER T 465.9 Upper Respiratory Infection 01/30/2009 JULITA VICTORIANJENNIFER T 465.9 Upper Respiratory Infection 01/30/2009 JENNIFER [...] TRACT INFECTION 02/28/2009 703.0 NAIL INGROWN 02/28/2009 PRUITT DOMUSTAPHAA K 477.9 Rhinitis 02/28/2009 PRUITT DO GEGE K 599.0 Urinary Tract Infection 02/28/2009 PRUITT DO GEGE K 703.0 Nail Ingrown 02/28/2009 477.9 Rhinitis 02/28/2009 599.0 Urinary Tract Infection 02/28/2009 703.0 Nail Ingrown 02/28/2009 JULITA VICTORIAN, JENNIFER T 477.9 Rhinitis 02/28/2009 JULITA FORESTRY TECHNICIAN, JENNIFER T 599.0 Urinary Tract Infection 02/28/2009 JULITA FORESTRY TECHNICIAN, JENNIFER T 703.0 Nail Ingrown 02/28/2009 PRUITT DO, GEGE K 477.9 Rhinitis 02/28/2009 PRUITT DO, GEGE K 599.0 Urinary Tract Infection 02/28/2009 PRUITT DO, GEGE K 703.0 Nail Ingrown 02/28/2009 JULITA FORESTRY TECHNICIANJENNIFER T 477.9 Rhinitis 02/28/2009 JULITA FORESTRY TECHNICIAN, JENNIFER T 599.0 Urinary Tract Infection 02/28/2009 JULITA FORESTRY TECHNICIAN, JENNIFER T 703.0 Nail Ingrown 02/28/2009 JULITA FORESTRY TECHNICIAN, JENNIFER T 477.9 Rhinitis 02/28/2009 JULITA FORESTRY TECHNICIANJENNIFER T 599.0 Urinary Tract Infection 02/28/2009 JULITA VICTORIANJENNIFER 703.0 Nail Ingrown 02/28/2009 JULITA VICTORIANJENNIFER T 477.9 Rhinitis 02/28/2009 JULITA FORESTRY TECHNICIAN, JENNIFER T 599.0 Urinary Tract Infection 02/28/2009 JULITA FORESTRY TECHNICIAN, JENNIFER T 703.0 Nail Ingrown 02/28/2009 ILANA FORESTRY TECHNICIAN, OSWALD R 477.9 Rhinitis 02/28/2009 ILANA FORESTRY TECHNICIAN, OSWALD R 599.0 Urinary Tract Infection 02/28/2009 ILANA FORESTRY TECHNICIAN, OSWALD R 703.0 Nail Ingrown 02/28/2009 JULITA VICTORIANJENNIFER 477.9 Rhinitis 02/28/2009 JULITA VICTORIANJENNIFER T 599.0 Urinary Tract Infection 02/28/2009 JULITA FORESTRY TECHNICIAN, JENNIFER T 703.0 Nail Ingrown 02/28/2009 JULITA FORESTRY TECHNICIAN, JENNIFER T 477.9 Rhinitis 02/28/2009 JULITA FORESTRY TECHNICIAN, JENNIFER T 599.0 Urinary Tract Infection 02/28/2009 JULITA VICTORIANJENNIFER T 703.0 Nail Ingrown 02/28/2009 JULITA VICTOIRANJENNIFER T 477.9 Rhinitis 02/28/2009 JULITA VICTORIANJENNIFER T 599.0 Urinary Tract Infection 02/28/2009 JULITA VICTORIANJENNIFER T 703.0 Nail Ingrown 02/28/2009 JENNIFER CANCINO APRN T 477.9 Rhinitis 02/28/2009 JENNIFER CANCINO APRN T 599.0 Urinary Tract Infection 02/28/2009 JENNIFER CANCINO APRN 703.0 Nail Ingrown 05/28/2009 JENNIFER CANCINO APRN T 461.0 ACUTE MAXILLARY SINUSITIS 05/28/2009 461.0 ACUTE MAXILLARY SINUSITIS 05/28/2009 ROSALIND STEIN MD 461.0 ACUTE MAXILLARY SINUSITIS 05/28/2009 461.0 ACUTE MAXILLARY SINUSITIS 05/28/2009 461.0 ACUTE MAXILLARY SINUSITIS 05/28/2009 PRUITT DO, GEEG K 461.0 Acute Maxillary Sinusitis 05/28/2009 461.0 Acute Maxillary Sinusitis 05/28/2009 JENNIFER CANCINO APRN T 461.0 Acute Maxillary Sinusitis 05/28/2009 SONAL DO, GEGE K 461.0 Acute Maxillary Sinusitis 05/28/2009 JENNIFER CANCINO APRN T 461.0 Acute Maxillary Sinusitis 05/28/2009 JENNIFER CANCINO APRN T 461.0 Acute Maxillary Sinusitis 05/28/2009 JENNIFER CANCINO APRN T 461.0 Acute Maxillary Sinusitis 05/28/2009 ILANA RIVERA OSWALD R 461.0 Acute Maxillary Sinusitis 05/28/2009 JENNIFER CANCINO APRN 461.0 Acute Maxillary Sinusitis 05/28/2009 JENNIFER CANCINO [...] ECZEMA, DUE TO PLANTS [EXCEPT FOOD] 06/29/2009 SONAL DO, GEGE K 692.6 Contact Dermatitis And Other Eczema, Due To Plants [except Food] 06/29/2009 692.6 Contact Dermatitis And Other Eczema, Due To Plants [except Food] 06/29/2009 JENNIFER CANCINO APRN 692.6 Contact Dermatitis And Other Eczema, Due To Plants [except Food] 06/29/2009 GEGE PRUITT DO K 692.6 Contact Dermatitis And Other Eczema, Due To Plants [except Food] 06/29/2009 JENNIFER CANCINO APRN 692.6 Contact Dermatitis And Other Eczema, Due To Plants [except Food] 06/29/2009 JENNIFER CANCINO APRN 692.6 Contact Dermatitis And Other Eczema, Due To Plants [except Food] 06/29/2009 JENNIFER CANCINO APRN 692.6 Contact Dermatitis And Other Eczema, Due To Plants [except Food] 06/29/2009 OSWALD PRECIADO APRN 692.6 Contact Dermatitis And Other Eczema, [...] GIDDINESS 07/24/2009 780.4 DIZZINESS AND GIDDINESS 07/24/2009 ROSALIND STEIN MD 780.4 DIZZINESS AND GIDDINESS 07/24/2009 780.4 DIZZINESS AND GIDDINESS 07/24/2009 780.4 DIZZINESS AND GIDDINESS 07/24/2009 GEGE PRUITT DO K 780.4 Dizziness And Giddiness 07/24/2009 780.4 Dizziness And Giddiness 07/24/2009 JENNIFER CANCINO APRN 780.4 Dizziness And Giddiness 07/24/2009 MUSTAPHA PRUITT DOA K 780.4 Dizziness And Giddiness 07/24/2009 JENNIFER CANCINO APRN 780.4 Dizziness And Giddiness 07/24/2009 JENNIFER CANCINO APRN 780.4 Dizziness And Giddiness 07/24/2009 JENNIFER CANCINO APRN 780.4 Dizziness And Giddiness 07/24/2009 ILANA RIVERA, OSWALD R 780.4 Dizziness And Giddiness 07/24/2009 JENNIFER [...] NODX No Diagnosis 09/06/2009 GEGE PRUITT DO K NODX No Diagnosis 09/06/2009 JENNIFER CANCINO APRN NODX No Diagnosis 09/06/2009 JENNIFER CANCINO APRN NODX No Diagnosis 09/06/2009 JENNIFER CANCINO APRN NODX No Diagnosis 09/06/2009 RODOLFO PRECIADO APRNINA R NODX No Diagnosis 09/06/2009 JENNIFER CANCINO APRN NODX No Diagnosis 09/06/2009 JENNIFER CANCINO APRN T NODX No Diagnosis 09/06/2009 JENNIFER CANCINO APRN NODX No Diagnosis 09/06/2009 JENNIFER CANCINO APRN NODX No Diagnosis 09/17/2009 JENNIFER CANCINO APRN 493.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 09/17/2009 493.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 09/17/2009 ROSALIND TSEIN MD 493.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 09/17/2009 493.82 [...] Cough Variant Asthma 09/17/2009 OSWALD PRECIADO APRN R 493.82 Cough Variant Asthma 09/17/2009 JENNIFER CANCINO [...] Specified As Acute Or Chronic 09/28/2009 JULITA FORESTRY TECHNICIAN, JENNIFER T 786.05 Shortness Of Breath 09/28/2009 JULITA FORESTRY TECHNICIAN, JENNIFER T 786.07 Wheezing 09/28/2009 JULITA FORESTRY TECHNICIANJENNIFER T 786.2 Cough 09/28/2009 PRUITT DO, GEGE K 490 Bronchitis, Not Specified As Acute Or Chronic 09/28/2009 PRUITT DO, GEGE K 786.05 Shortness Of Breath 09/28/2009 PRUITT DO, GEGE K 786.07 Wheezing 09/28/2009 PRUITT DO, GEGE K 786.2 Cough 09/28/2009 JULITA FORESTRY TECHNICIANJENNIFER 490 Bronchitis, Not Specified As Acute Or [...] JULITA VICTORIANJENNIFER T 786.07 Wheezing 09/28/2009 JULITA FORESTRY TECHNICIAN, JENNIFER T 786.2 Cough 09/28/2009 ILANA FORESTRY TECHNICIAN, OSWALD R 490 Bronchitis, Not Specified As Acute Or Chronic 09/28/2009 ILANA FORESTRY TECHNICIAN, OSWALD R 786.05 Shortness Of Breath 09/28/2009 ILANA FORESTRY TECHNICIAN, OSWALD R 786.07 Wheezing 09/28/2009 ILANA FORESTRY TECHNICIAN, OSWALD R 786.2 Cough 09/28/2009 JULITA VICTORIANJENNIFER T 490 Bronchitis, Not Specified As Acute Or Chronic 09/28/2009 JULITA VICTORIANJENNIFER T 786.05 Shortness Of Breath 09/28/2009 JULITA VICTORIANJENNIFER T 786.07 Wheezing 09/28/2009 JULITA VICTORIANJENNIFER T 786.2 Cough 09/28/2009 JULITA VICTORIANJENNIFER 490 Bronchitis, Not Specified As Acute Or Chronic 09/28/2009 JULITA VICTORIANJENNIFER T 786.05 Shortness Of Breath 09/28/2009 JENNIFER CANCINO [...] 12/19/2009 782.3 EDEMA 12/19/2009 782.3 EDEMA 12/19/2009 GEGE PRUITT DO 782.3 Edema 12/19/2009 782.3 Edema 12/19/2009 JENNIFER CANCINO APRN 782.3 Edema 12/19/2009 GEGE PRUITT DO K 782.3 Edema 12/19/2009 JENNIFER CANCINO APRN 782.3 Edema 12/19/2009 JENNIFER CANCINO APRN 782.3 Edema 12/19/2009 JENNIFER CACNINO APRN 782.3 Edema 12/19/2009 OSWALD PRECIADO APRN R 782.3 Edema 12/19/2009 JENNIFER CANCINO APRN 782.3 Edema 12/19/2009 JENNIFER CANCINO APRN 782.3 Edema 12/19/2009 JENNIFER CANCINO APRN 782.3 Edema 12/19/2009 JENNIFER CANCINO APRN 782.3 Edema 02/06/2010 JENNIFER CANCINO APRN 112.9 CANDIDIASIS, OF UNSPECIFIED SITE 02/06/2010 JENNIFER CANCINO APRN 296.90 MOOD DISORDER 02/06/2010 JENNIFER CANCINO APRN 780.79 MALAISE AND FATIGUE 02/06/2010 JENNIFER CANCINO APRN V72.31 ROLL UP OPERATOR EXAM, ROUTINE 02/06/2010 112.9 CANDIDIASIS, OF UNSPECIFIED SITE 02/06/2010 296.90 MOOD DISORDER 02/06/2010 780.79 MALAISE AND FATIGUE 02/06/2010 V72.31 ROLL UP OPERATOR EXAM, ROUTINE 02/06/2010 ROSALIND STEIN MD 112.9 CANDIDIASIS, OF UNSPECIFIED SITE 02/06/2010 ROSALIND STEIN MD 296.90 MOOD DISORDER 02/06/2010 ROSALIND STEIN MD 780.79 MALAISE AND FATIGUE 02/06/2010 ROSALIND STEIN MD V72.31 ROLL UP OPERATOR EXAM, ROUTINE 02/06/2010 112.9 CANDIDIASIS, OF UNSPECIFIED SITE 02/06/2010 296.90 MOOD DISORDER 02/06/2010 780.79 MALAISE AND FATIGUE 02/06/2010 V72.31 ROLL UP OPERATOR EXAM, ROUTINE 02/06/2010 112.9 CANDIDIASIS, OF UNSPECIFIED SITE 02/06/2010 296.90 MOOD DISORDER 02/06/2010 780.79 MALAISE AND FATIGUE 02/06/2010 V72.31 ROLL UP OPERATOR EXAM, ROUTINE 02/06/2010 PRUITT DO GEGE K 112.9 Candidiasis, Of Unspecified Site 02/06/2010 PRUITT DO GEGE K 296.90 MOOD DISORDER 02/06/2010 PRUITT DO GEGE K 780.79 Malaise And Fatigue 02/06/2010 PRUITT DO, GEGE K V72.31 Insect Control Inspector Exam, Routine 02/06/2010 112.9 Candidiasis, Of Unspecified Site 02/06/2010 296.90 MOOD DISORDER 02/06/2010 780.79 Malaise And Fatigue 02/06/2010 V72.31 Insect Control Inspector Exam, Routine 02/06/2010 JENNIFER CANCINO APRN 112.9 Candidiasis, Of Unspecified Site 02/06/2010 JENNIFER CANCINO APRN 296.90 MOOD DISORDER 02/06/2010 JENNIFER CANCINO APRN 780.79 Malaise And Fatigue 02/06/2010 JENNIFER CANCINO APRN V72.31 Insect Control Inspector Exam, Routine 02/06/2010 PRUITT DO GEGE K 112.9 Candidiasis, Of Unspecified Site 02/06/2010 PRUITT DO GEGE K 296.90 MOOD DISORDER 02/06/2010 PRUITT DO GEGE K 780.79 Malaise And Fatigue 02/06/2010 PRUITT DO GEGE K V72.31 Insect Control Inspector Exam, Routine 02/06/2010 JENNIFER CANCINO APRN 112.9 Candidiasis, Of Unspecified Site 02/06/2010 JULITA RIVERA JENNIFER T 296.90 MOOD DISORDER 02/06/2010 JULITA FORESTRY TECHNICIAN, JENNIFER T 780.79 Malaise And Fatigue 02/06/2010 JULITA FORESTRY TECHNICIANJENNIFER T V72.31 Insect Control Inspector Exam, Routine 02/06/2010 JULITA FORESTRY TECHNICIAN JENNIFER T 112.9 Candidiasis, Of Unspecified Site 02/06/2010 JULITA FORESTRY TECHNICIAN, JENNIFER T 296.90 MOOD DISORDER 02/06/2010 JULITA FORESTRY TECHNICIANJENNIFER T 780.79 Malaise And Fatigue 02/06/2010 JULITA FORESTRY TECHNICIANJENNIFER T V72.31 Insect Control Inspector Exam, Routine 02/06/2010 JULITA FORESTRY TECHNICIANJENNIFER T 112.9 Candidiasis, Of Unspecified Site 02/06/2010 JULITA FORESTRY TECHNICIAN JENNIFER T 296.90 MOOD DISORDER 02/06/2010 JULITA FORESTRY TECHNICIAN, JENNIFER T 780.79 Malaise And Fatigue 02/06/2010 JULITA FORESTRY TECHNICIAN JENNIFER T V72.31 Insect Control Inspector Exam, Routine 02/06/2010 ILANA FORESTRY TECHNICIAN, OSWALD R 112.9 Candidiasis, Of Unspecified Site 02/06/2010 ILANA FORESTRY TECHNICIAN, OSWALD R 296.90 MOOD DISORDER 02/06/2010 ILANA FORESTRY TECHNICIAN, OSWALD R 780.79 Malaise And Fatigue 02/06/2010 ILANA FORESTRY TECHNICIAN, OSWALD R V72.31 Insect Control Inspector Exam, Routine 02/06/2010 JULITA VICTORIANJENNIFER T 112.9 Candidiasis, Of Unspecified Site 02/06/2010 JULITA VICTORIAN, JENNIFER T 296.90 MOOD DISORDER 02/06/2010 JULITA VICTORIAN JENNIFER T 780.79 Malaise And Fatigue 02/06/2010 JULITA VICTORIANJENNIFER T V72.31 Insect Control Inspector Exam, Routine 02/06/2010 JULITA VICTORIANJENNIFER T 112.9 Candidiasis, Of Unspecified Site 02/06/2010 JULITA FORESTRY TECHNICIAN JENNIFER T 296.90 MOOD DISORDER 02/06/2010 JULITA FORESTRY TECHNICIAN, JENNIFER T 780.79 Malaise And Fatigue 02/06/2010 JULITA FORESTRY TECHNICIAN JENNIFER T V72.31 Insect Control Inspector Exam, Routine 02/06/2010 JULITA FORESTRY TECHNICIAN JENNIFER T 112.9 Candidiasis, Of Unspecified Site 02/06/2010 JULITA VICTORIAN JENNIFER T 296.90 MOOD DISORDER 02/06/2010 JULITA VICTORIAN JENNIFER T 780.79 Malaise And Fatigue 02/06/2010 JULITA VICTORIAN JENNIFER T V72.31 Insect Control Inspector Exam, Routine 02/06/2010 JENNIFER CANCINO APRN 112.9 Candidiasis, Of Unspecified Site 02/06/2010 JENNIFER CANCINO APRN 296.90 MOOD DISORDER 02/06/2010 JENNIFER CANCINO APRN 780.79 Malaise And Fatigue 02/06/2010 JENNIFER CANCINO APRN V72.31 Insect Control Inspector Exam, Routine 05/06/2010 JENNIFER CANCINO APRN 724.2 [...] 05/06/2010 JENNIFER CANCINO APRN 724.2 Lumbago 05/06/2010 OSWALD PRECIADO APRN 724.2 Lumbago 05/06/2010 JENNIFER CANCINO APRN [...] APRN 388.70 Otalgia Unspecified 06/04/2010 PRUITT DO, EGGE K 381.81 Eustachian Tube Dysfunction 06/04/2010 PRUITT DO, GEGE K 388.70 Otalgia Unspecified 06/04/2010 JENNIFER CANCINO APRN 381.81 Eustachian Tube Dysfunction 06/04/2010 JENNIFER CANCINO APRN 388.70 Otalgia Unspecified 06/04/2010 JENNIFER CANCINO APRN 381.81 Eustachian Tube Dysfunction 06/04/2010 JENNIFER CANCINO APRN 388.70 Otalgia Unspecified 06/04/2010 JENNIFER CANCINO APRN T 381.81 Eustachian Tube Dysfunction 06/04/2010 JENNIFER CANCINO APRN T 388.70 Otalgia Unspecified 06/04/2010 ILANA RIVERA OSWALD R 381.81 Eustachian Tube Dysfunction 06/04/2010 ILANA RIVERA, OSWALD R 388.70 Otalgia Unspecified 06/04/2010 JENNIFER [...] 01/14/2011 726.32 Lateral Epicondylitis Elbow Region 01/14/2011 ROSALIND STEIN MD 726.32 Lateral Epicondylitis Elbow Region 01/14/2011 726.32 [...] APRN 726.32 Lateral Epicondylitis Elbow Region 01/14/2011 OSWADL PRECIADO APRN R 726.32 Lateral Epicondylitis Elbow Region 01/14/2011 JENNIFER CANCINO APRN 726.32 Lateral Epicondylitis Elbow Region 01/14/2011 JENNIFER CANCINO APRN 726.32 Lateral Epicondylitis Elbow Region 01/14/2011 JENNIFER CANCINO APRN 726.32 Lateral Epicondylitis Elbow Region 01/14/2011 JENNIFER ACNCINO APRN 726.32 Lateral Epicondylitis Elbow Region 05/06/2011 JENNIFER CANCINO APRN 719.46 Knee Pain 05/06/2011 719.46 Knee Pain 05/06/2011 ROSALIND STEIN MD 719.46 Knee Pain 05/06/2011 719.46 Knee Pain 05/06/2011 719.46 Knee Pain 05/06/2011 GEGE PRUITT DO K 719.46 Knee Pain 05/06/2011 719.46 Knee Pain 05/06/2011 JENNIFER CANCINO APRN 719.46 Knee Pain 05/06/2011 GEGE PRUITT DO 719.46 Knee Pain 05/06/2011 JENNIFER CANCINO APRN 719.46 Knee Pain 05/06/2011 JENNIFER CANCINO APRN 719.46 Knee Pain 05/06/2011 JENNIFER CANCINO APRN 719.46 Knee Pain 05/06/2011 OSWALD PRECIADO APRN 719.46 Knee Pain 05/06/2011 JENNIFER CANCINO [...] GEGE PRUITT DO 461.9 Sinusitis Acute 06/13/2011 JULITA FORESTRY TECHNICIAN, JENNIFER T 461.9 Sinusitis Acute 06/13/2011 JULITA VICTORIANJENNIFER T 461.9 Sinusitis Acute 06/13/2011 JULITA VICTORIANJENNIFER T 461.9 Sinusitis Acute 06/13/2011 OSWALD PRECIADO APRN R 461.9 Sinusitis Acute 06/13/2011 JULITA VICTORIANJENNIFER T 461.9 Sinusitis Acute 06/13/2011 JENNIFER CANCINO APRN T 461.9 Sinusitis Acute 06/13/2011 JULITA VICTORIANJENNIFER T 461.9 Sinusitis Acute 06/13/2011 JULITA VICTORIANJENNIFER T 461.9 Sinusitis Acute 06/25/2011 JENNIFER CANCINO APRN T 915.8 Other [...] Fingers Without Infection 06/25/2011 GEGE PRUITT DO K 915.8 Other And Unspecified Superficial Injury Of [...] Pain In Limb 09/03/2011 OSWALD PRECIADO APRN R 729.5 Pain In Limb 09/03/2011 JENNIFER CANCINO APRN 729.5 Pain In Limb 09/03/2011 JENNIFER CANCINO APRN 729.5 Pain In Limb 09/03/2011 JENNIFER CANCINO APRN 729.5 Pain In Limb 09/03/2011 JENNIFER CANCINO APRN 729.5 Pain In Limb 09/26/2011 JENNIFER CANCINO APRN 844.9 SPRAIN/STRAIN KNEE/LEG 09/26/2011 844.9 SPRAIN/STRAIN KNEE/LEG 09/26/2011 ROSALIND STEIN MD 844.9 SPRAIN/STRAIN KNEE/LEG 09/26/2011 844.9 SPRAIN/STRAIN KNEE/LEG 09/26/2011 844.9 SPRAIN/STRAIN KNEE/LEG 09/26/2011 GEGE PRUITT DO 844.9 Sprain/strain Knee/leg 09/26/2011 844.9 Sprain/strain Knee/leg 09/26/2011 JENNIFER CANCINO APRN 844.9 Sprain/strain Knee/leg 09/26/2011 GEGE PRUITT DO 844.9 Sprain/strain Knee/leg 09/26/2011 JENNIFER CANCINO APRN 844.9 Sprain/strain Knee/leg 09/26/2011 JENNIFER CANCINO APRN 844.9 Sprain/strain Knee/leg 09/26/2011 JENNIFER CANCINO APRN 844.9 Sprain/strain Knee/leg 09/26/2011 OSWALD PRECIADO APRN R 844.9 Sprain/strain Knee/leg 09/26/2011 JENNIFER CANCINO [...] JENNIFER CANCINO APRN 708.9 Urticaria/hives Unspec 10/01/2011 OSWALD PRECIADO APRN R 708.9 Urticaria/hives Unspec 10/01/2011 JENNIFER CANCINO [...] OSWALD PRECIADO APRN V78.0 Anemia Screening 10/13/2011 JNENIFER CANCINO APRN V78.0 Anemia Screening 10/13/2011 JENNIFER CANCINO APRN V78.0 Anemia Screening 10/13/2011 JENNIFER CANCINO APRN V78.0 Anemia Screening 10/13/2011 JENNIFER CANCINO APRN V78.0 Anemia Screening 10/21/2011 JENNIFER CANCINO APRN 719.46 KNEE PAIN 10/21/2011 719.46 KNEE PAIN 10/21/2011 ROSALIND STEIN MD 719.46 KNEE PAIN 10/21/2011 719.46 KNEE PAIN 10/21/2011 719.46 KNEE PAIN 10/21/2011 PRUITT , GEGE K 719.46 Knee Pain 10/21/2011 719.46 [...] 11/20/2011 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 11/20/2011 ROSALIND STEIN MD 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 11/20/2011 728.71 [...] PLANTAR FASCIAL FIBROMATOSIS 11/20/2011 OSWALD PRECIADO APRN R 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 11/20/2011 JENNIFER CANCINO [...] In Thoracic Spine 01/12/2012 JENNIFER CANCINO APRN T 724.1 Pain In Thoracic Spine 01/12/2012 GEGE PRUITT DO K 724.1 Pain In Thoracic Spine 01/12/2012 JENNIFER CANCINO APRN 724.1 Pain In Thoracic Spine 01/12/2012 JENNIFER CANCINO APRN 724.1 Pain In Thoracic Spine 01/12/2012 JENNIFER CANCINO APRN 724.1 Pain In Thoracic Spine 01/12/2012 OSWALD PRECIADO APRN 724.1 Pain In Thoracic Spine 01/12/2012 [...] UNSPECIFIED 02/24/2012 461.9 ACUTE SINUSITIS UNSPECIFIED 02/24/2012 GEGE PRUITT DO 461.9 Acute Sinusitis Unspecified 02/24/2012 461.9 Acute Sinusitis Unspecified 02/24/2012 JENNIFER CANCINO APRN 461.9 Acute Sinusitis Unspecified 02/24/2012 GEGE PRUITT DO 461.9 Acute Sinusitis Unspecified 02/24/2012 JENNIFER CANCINO APRN 461.9 Acute Sinusitis Unspecified 02/24/2012 JENNIFER CANCINO APRN 461.9 Acute Sinusitis Unspecified 02/24/2012 JENNIFER CANCINO APRN 461.9 Acute Sinusitis Unspecified 02/24/2012 OSWALD PRECIADO APRN 461.9 Acute Sinusitis Unspecified 02/24/2012 JENNIFER [...] Shoulder Joint Pain 05/26/2012 OSWALD PRECIADO APRN 719.41 Shoulder Joint Pain 05/26/2012 JENNIFER [...] CANCINO APRN T V06.1 Dtap Dx 06/09/2012 SONAL MARTINS, GEGE K E906.3 Injury Caused By Animal Cat Bite 06/09/2012 SONAL MARTINS, GEGE K V06.1 Dtap Dx 06/09/2012 JENNIFER CANCINO [...] CANCINO APRN T V06.1 Dtap Dx 06/09/2012 ILANA RIVERA, OSWALD R E906.3 Injury Caused By Animal Cat Bite 06/09/2012 ILANA RIVERA, OSWALD R V06.1 Dtap Dx 06/09/2012 JULITA RIVERA JENNIFER T E906.3 Injury Caused By Animal Cat Bite 06/09/2012 JULITA RIVERA JENNIFER T V06.1 Dtap Dx 06/09/2012 JENNIFER CANCINO APRN T E906.3 Injury Caused By Animal Cat Bite 06/09/2012 JULITA RIVERA JENNIFER T V06.1 Dtap Dx 06/09/2012 JENNIFER CANCINO APRN T E906.3 Injury Caused By Animal Cat Bite 06/09/2012 JENNIFER CANCINO APRN T V06.1 Dtap Dx 06/09/2012 JULITA RIVERA JENNIFER T E906.3 Injury Caused By Animal Cat Bite 06/09/2012 JULITA RIVERA JENNIFER T V06.1 Dtap Dx 06/09/2012 EMIL NAM, ROSALIND 626.9 MENSTRUATION AND OTHER ABNORMAL BLEEDING FROM FEMALE GENITAL TRACT 08/18/2012 535.50 GASTRITIS UNSPEC 08/18/2012 535.50 GASTRITIS UNSPEC 08/18/2012 SONAL MARTINS GEGE Maureen 535.50 Gastritis Unspec 08/18/2012 535.50 Gastritis Unspec 08/18/2012 JENNIFER CANCINO APRN 535.50 Gastritis Unspec 08/18/2012 GEGE PRUITT DO 535.50 Gastritis Unspec 08/18/2012 JENNIFER CANCINO APRN 535.50 Gastritis Unspec 08/18/2012 JENNIFER CANCINO APRN 535.50 Gastritis Unspec 08/18/2012 JENNIFER CANCINO APRN 535.50 Gastritis Unspec 08/18/2012 OSWALD PRECIADO APRN R 535.50 Gastritis Unspec 08/18/2012 JENNIFER CANCINO APRN [...] (JOINT) OF HAND 09/02/2012 OSWALD PRECIADO APRN R 842.13 SPRAIN OF INTERPHALANGEAL (JOINT) OF HAND 09/02/2012 JENNIFER CANCINO APRN 842.13 SPRAIN OF INTERPHALANGEAL (JOINT) OF HAND 09/02/2012 JENNIFER CANCINO APRN 842.13 SPRAIN OF INTERPHALANGEAL (JOINT) OF HAND 09/02/2012 EJNNIFER CANCINO APRN 842.13 SPRAIN OF INTERPHALANGEAL (JOINT) OF HAND 09/02/2012 JENNIFER CANCINO APRN 842.13 SPRAIN OF INTERPHALANGEAL (JOINT) OF HAND 09/02/2012 626.9 MENSTRUATION AND OTHER ABNORMAL BLEEDING FROM FEMALE GENITAL TRACT 09/06/2012 MUSTAPHA PRUITT DOA K 626.9 Menstruation And Other Abnormal Bleeding From Female Genital Tract 12/01/2012 110.1 ONYCHOMYCOSIS 12/01/2012 JENNIFER CANCINO APRN T 110.1 ONYCHOMYCOSIS 12/01/2012 GEGE PRUITT DO K 110.1 ONYCHOMYCOSIS 12/01/2012 JENNIFER CANCINO APRN T 110.1 ONYCHOMYCOSIS 12/01/2012 JENNIFER CANCINO APRN T 110.1 ONYCHOMYCOSIS 12/01/2012 JENNIFER CANCINO APRN T 110.1 ONYCHOMYCOSIS 12/01/2012 OSWALD PRECIADO APRN R 110.1 ONYCHOMYCOSIS 12/01/2012 JENNIFER CANCINO APRN T 110.1 ONYCHOMYCOSIS 12/01/2012 JENNIFER CANCINO APRN T 110.1 ONYCHOMYCOSIS 12/01/2012 JENNIFER CANCINO APRN T 110.1 ONYCHOMYCOSIS 12/01/2012 JENNIFER CANCINO APRN T 110.1 ONYCHOMYCOSIS 12/01/2012 626.9 Menstruation And Other Abnormal Bleeding From Female Genital Tract 03/19/2013 JENNIFER CANCINO APRN 493.90 ASTHMA UNSPECIFIED 03/19/2013 JENNIFER CANCINO APRN 719.45 PAIN- HIP 03/19/2013 MUSTAPHA PRUITT DOA K 493.90 ASTHMA UNSPECIFIED 03/19/2013 MUSTAPHA PRUITT DOA K 719.45 PAIN- HIP 03/19/2013 JENNIFER CANCINO APRN 493.90 ASTHMA UNSPECIFIED 03/19/2013 JENNIFER CANCINO APRN T 719.45 PAIN- HIP 03/19/2013 JENNIFER CANCINO APRN 493.90 ASTHMA UNSPECIFIED 03/19/2013 JENNIFER CANCINO APRN 719.45 PAIN- HIP 03/19/2013 JENNIFER CANCINO APRN 493.90 ASTHMA UNSPECIFIED 03/19/2013 JENNIFER CANCINO APRN 719.45 PAIN- HIP 03/19/2013 RODOLFO PRECIADO APRNINA R 493.90 ASTHMA UNSPECIFIED 03/19/2013 ILANA RIVERA OSWALD R 719.45 PAIN- HIP 03/19/2013 JULITA FORESTRY TECHNICIAN, JENNIFER T 493.90 ASTHMA UNSPECIFIED 03/19/2013 JENNIFER CANCINO APRN T 719.45 PAIN- HIP 03/19/2013 JENNIFER CANCINO APRN T 493.90 ASTHMA UNSPECIFIED 03/19/2013 JENNIFER CANCINO APRN T 719.45 PAIN- HIP 03/19/2013 JULITA VICTORIANJENNIFER T 493.90 ASTHMA UNSPECIFIED 03/19/2013 JENNIFER CANCINO APRN T 719.45 PAIN- HIP 03/19/2013 JENNIFER CANCINO APRN T 493.90 ASTHMA UNSPECIFIED 03/19/2013 JENNIFER CANCINO APRN T 719.45 PAIN- HIP 03/19/2013 JENNIFER CANCINO APRN T 626.9 Menstruation And Other Abnormal Bleeding From Female Genital Tract 10/06/2013 SONAL DOMUSTAPHAA K 461.9 SINUSITIS ACUTE 10/06/2013 JENNIFER CANCINO APRN T 461.9 SINUSITIS ACUTE 10/06/2013 JENNIFER CANCINO APRN T 461.9 SINUSITIS ACUTE 10/06/2013 JENNIFER CANCINO APRN 461.9 SINUSITIS ACUTE 10/06/2013 RODOLFO PRECIADO APRNINA R 461.9 SINUSITIS ACUTE 10/06/2013 JENNIFER CANCINO APRN T 461.9 SINUSITIS ACUTE 10/06/2013 JENNIFER CANCINO APRN T 461.9 SINUSITIS ACUTE 10/06/2013 JENNIFER CANCINO APRN T 461.9 SINUSITIS ACUTE 10/06/2013 JENNIFER CANCINO APRN T 461.9 SINUSITIS ACUTE 10/06/2013 PRUITT DOMUSTAPHAA K 626.9 Menstruation And Other Abnormal Bleeding From Female Genital Tract 11/16/2013 JENNIFER CANCINO APRN T 719.47 PAIN- FOOT 11/16/2013 JENNIFER CANCINO APRN T 719.47 PAIN- FOOT 11/16/2013 JENNIFER CANCINO APRN T 719.47 PAIN- FOOT 11/16/2013 ILANA RIVERA, OSWALD R 719.47 PAIN- FOOT 11/16/2013 JENNIFER CANCINO APRN T 719.47 PAIN- FOOT 11/16/2013 JENNIFER CANCINO APRN T 719.47 PAIN- FOOT 11/16/2013 JENNIFER CANCINO APRN 719.47 PAIN- FOOT 11/16/2013 JENNIFER CANCINO APRN 719.47 PAIN- FOOT 11/17/2013 JENNIFER CANCINO APRN 626.9 Menstruation And Other Abnormal Bleeding From Female Genital Tract 11/28/2013 JULITA RIVERA JENNIFER T V72.31 ROLL UP OPERATOR EXAM, ROUTINE 11/28/2013 JENNIFER CANCINO APRN T V73.81 HPV SCREENING 11/28/2013 JULITA RIVERA, JENNIFER T V76.10 BREAST CANCER SCREENING 11/28/2013 JENNIFER CANCINO APRN T V76.2 CERVICAL CANCER SCREENING (PAP SMEAR) 11/28/2013 JENNIFER CANCINO APRN T V76.51 COLON CANCER SCREENING 11/28/2013 JENNIFER CANCINO APRN T V72.31 ROLL UP OPERATOR EXAM, ROUTINE 11/28/2013 JENNIFER CANCINO APRN T V73.81 HPV SCREENING 11/28/2013 JENNIFER CANCINO APRN T V76.10 BREAST CANCER SCREENING 11/28/2013 JENNIFER CANCINO APRN T V76.2 CERVICAL CANCER SCREENING (PAP SMEAR) 11/28/2013 JENNIFER CANCINO APRN T V76.51 COLON CANCER SCREENING 11/28/2013 ILANA RIVERA OSWALD R V72.31 ROLL UP OPERATOR EXAM, ROUTINE 11/28/2013 ILANA RIVERA OSWALD R V73.81 HPV SCREENING 11/28/2013 ILANA RIVERA OSWALD R V76.10 BREAST CANCER SCREENING 11/28/2013 ILANA RIVERA OSWALD R V76.2 CERVICAL CANCER SCREENING (PAP SMEAR) 11/28/2013 ILANA RIVERA OSWALD R V76.51 COLON CANCER SCREENING 11/28/2013 JENNIFER CANCINO APRN T V72.31 ROLL UP OPERATOR EXAM, ROUTINE 11/28/2013 JENNIFER CANCINO APRN T V73.81 HPV SCREENING 11/28/2013 JENNIFER CANCINO APRN T V76.10 BREAST CANCER SCREENING 11/28/2013 JENNIFER CANCINO APRN T V76.2 CERVICAL CANCER SCREENING (PAP SMEAR) 11/28/2013 JENNIFER CANCINO APRN T V76.51 COLON CANCER SCREENING 11/28/2013 JENNIFER CANCINO APRN T V72.31 ROLL UP OPERATOR EXAM, ROUTINE 11/28/2013 JULITA RIVERA JENNIFER T V73.81 HPV SCREENING 11/28/2013 JULITA RIVERA JENNIFER T V76.10 BREAST CANCER SCREENING 11/28/2013 JULITA RIVERA JENNIFER T V76.2 CERVICAL CANCER SCREENING (PAP SMEAR) 11/28/2013 JENNIFER CANCINO APRN T V76.51 COLON CANCER SCREENING 11/28/2013 JULITA RIVERA JENNIFER T V72.31 ROLL UP OPERATOR EXAM, ROUTINE 11/28/2013 JENNIFER CANCINO APRN V73.81 HPV SCREENING 11/28/2013 JENNIFER CANCINO APRN V76.10 BREAST CANCER SCREENING 11/28/2013 JENNIFER CANCINO APRN V76.2 CERVICAL CANCER SCREENING (PAP SMEAR) 11/28/2013 JENNIFER CANCINO APRN V76.51 COLON CANCER SCREENING 11/28/2013 JENNIFER CANCINO APRN V72.31 ROLL UP OPERATOR EXAM, ROUTINE 11/28/2013 JENNIFER CANCINO APRN V73.81 [...] OF GALLBLADDER WITHOUT CHOLECYSTITIS WITHOUT OBSTRUCTION 01/13/2014 OSWALD PRECIADO APRN R 574.20 CALCULUS OF GALLBLADDER WITHOUT CHOLECYSTITIS [...] Abnormal Bleeding From Female Genital Tract 01/25/2014 EMIL NAM, ROSALIND Jackson Ot 574.00 CHOLELITH W AC CHOLECYST 01/25/2014 ROSALIND STEIN MD Ot 574.10 CHOLELITH W CHOLECYS NEC 02/15/2014 OSWALD PRECIADO APRN R 462 ACUTE PHARYNGITIS 02/15/2014 JENNIFER CANCINO APRN 462 ACUTE PHARYNGITIS 02/15/2014 JENNIFER CANCINO APRN T 462 ACUTE PHARYNGITIS 02/15/2014 JENNIFER CANCINO APRN T 462 ACUTE PHARYNGITIS 02/15/2014 JENNIFER CANCINO APRN T 462 ACUTE PHARYNGITIS 02/15/2014 OSWALD PRECIADO APRN 626.9 Menstruation And Other Abnormal Bleeding From Female Genital Tract 04/28/2014 JENNIFER CANCINO APRN T 626.9 Menstruation And Other Abnormal Bleeding From Female Genital Tract 05/31/2014 JENNIFER CANCINO APRN T 626.9 Menstruation And Other Abnormal Bleeding From Female Genital Tract 06/06/2014 JULITA VICTORIANJENNIFER T 626.9 Menstruation And Other Abnormal Bleeding [...] 715.36 LOC OSTEOARTH NOS-L/LEG 01/31/2016 CHRISSY NUNEZ APRN Ot V76.12 OTH SCREEN MAMMO-MALIGN NEOPLASM OF VEE 02/05/2016 Ot 715.36 LOC OSTEOARTH NOS-L/LEG 02/05/2016 CHRISSY NUNEZ FORESTRY TECHNICIAN Ot V76.12 OTH SCREEN MAMMO-MALIGN NEOPLASM OF VEE 02/06/2016 MANISH CNONOR FURNACE PACKER Ot I10 ESSENTIAL (PRIMARY) HYPERTENSION 08/28/2017 TANISHA BARNES DO Ot F32.9 MAJOR DEPRESSIVE DISORDER, SINGLE EPISOD 08/28/2017 TANISHA BARNES DO Ot I10 ESSENTIAL (PRIMARY) HYPERTENSION 08/28/2017 TANISHA BARNES DO Ot J45.909 UNSPECIFIED ASTHMA, UNCOMPLICATED 08/28/2017 TANISHA BARNES DO Ot K21.9 GASTRO-ESOPHAGEAL REFLUX DISEASE WITHOUT 08/28/2017 TANISHA BARNES DO Ot R10.11 RIGHT UPPER QUADRANT PAIN 08/28/2017 TANISHA BARNES DO Ot R18.8 OTHER ASCITES 08/28/2017 CAMERON DO, TANISAH K Ot Z79.52 CARE HOME (CURRENT) USE OF SYSTEMIC STER 08/28/2017 CAMERON DO, TANISHA K Ot Z87.59 PERSONAL HISTORY OF COMP OF PREG, CHLDBR 08/28/2017 ENRIQUESARAHCHRISSY A FORESTRY TECHNICIAN Ot V76.12 OTH SCREEN MAMMO-MALIGN NEOPLASM OF VEE 08/28/2017 SHALOM CONNORWALT Navas FURNACE PACKER Ot I10 ESSENTIAL (PRIMARY) HYPERTENSION 08/31/2017 CAMERON DO, TANISHA K Ot F32.9 MAJOR DEPRESSIVE DISORDER, SINGLE EPISOD 08/31/2017 CMAERON DO, TANISHA K Ot I10 ESSENTIAL (PRIMARY) HYPERTENSION 08/31/2017 CAMERON DO, TANISHA K Ot J45.909 UNSPECIFIED ASTHMA, UNCOMPLICATED 08/31/2017 CAMERON DO, TANISHA K Ot K21.9 GASTRO-ESOPHAGEAL REFLUX DISEASE WITHOUT 08/31/2017 CAMERON DO, TANISHA K Ot R10.11 RIGHT UPPER QUADRANT PAIN 08/31/2017 CAMERON DO, TANISHA K Ot R18.8 OTHER ASCITES 08/31/2017 CAMERON DO, TANISHA K Ot Z79.52 CARE HOME (CURRENT) USE OF SYSTEMIC STER 08/31/2017 CAMERON DO, TANISHA K Ot Z87.59 PERSONAL HISTORY OF COMP OF PREG, CHLDBR 08/31/2017 CAMERON DO, TANISHA K Ot R18.8 OTHER ASCITES 09/03/2017 CAMERON DO, TANISHA K Ot R18.8 OTHER ASCITES 09/06/2017 CAMERON DO, TANISHA K Ot R18.8 OTHER ASCITES 09/12/2017 CHRISSY NUNEZ FORESTRY TECHNICIAN Ot V76.12 OTH SCREEN MAMMO-MALIGN NEOPLASM OF VEE 09/12/2017 GEETAMANISH FURNACE PACKER Ot I10 ESSENTIAL (PRIMARY) HYPERTENSION 09/14/2017 RADHA CARIAS FORESTRY TECHNICIAN Ot R10.11 RIGHT UPPER QUADRANT PAIN 09/14/2017 RADHA CARIAS FORESTRY TECHNICIAN Ot Z90.49 ACQUIRED ABSENCE OF OTHER SPECIFIED PART 10/07/2017 JAYESH NAM, EARL Tracey Ot E66.9 OBESITY, UNSPECIFIED 10/07/2017 EALR MCCONNELL MD Ot F32.9 MAJOR DEPRESSIVE DISORDER, SINGLE EPISOD 10/07/2017 EARL MCCONNELL MD Ot I10 ESSENTIAL (PRIMARY) HYPERTENSION 10/07/2017 EARL MCCONNELL MD, Ot J01.90 ACUTE SINUSITIS, UNSPECIFIED 10/07/2017 EARL MCCONNELL MD, Ot J45.909 UNSPECIFIED ASTHMA, UNCOMPLICATED 10/07/2017 EARL MCCONNELL MD, Ot K21.9 GASTRO-ESOPHAGEAL REFLUX DISEASE WITHOUT 10/07/2017 EARL MCCONNELL MD, Ot R51 HEADACHE 10/07/2017 EARL MCCONNELL MD, Ot Z68.41 BODY MASS INDEX (BMI) 40.0-44.9, ADULT 10/07/2017 EARL MCCONNELL MD, Ot Z79.51 CARE HOME (CURRENT) USE OF INHALED STERO 10/07/2017 EARL MCCONNELL MD, Ot Z87.19 PERSONAL HISTORY OF OTHER DISEASES OF TH 10/07/2017 EARL MCCONNELL MD, Ot Z87.59 PERSONAL HISTORY OF COMP OF PREG, CHLDBR 10/07/2017 EARL MCCONNELL MD, Ot Z88.8 ALLERGY STATUS TO OTH DRUG/MEDS/BIOL SUB 10/07/2017 CHRISSY NUNEZ FORESTRY TECHNICIAN Ot V76.12 OTH SCREEN MAMMO-MALIGN NEOPLASM OF VEE 10/07/2017 MANISH CONNOR FURNACE PACKER Ot I10 ESSENTIAL (PRIMARY) HYPERTENSION 10/07/2017 RADHA CARIAS FORESTRY TECHNICIAN Ot R10.11 RIGHT UPPER QUADRANT PAIN 10/07/2017 RADHA CARIAS FORESTRY TECHNICIAN Ot Z90.49 ACQUIRED ABSENCE OF OTHER SPECIFIED PART 10/08/2017 EARL MCCONNELL MD Ot E66.9 OBESITY, UNSPECIFIED 10/08/2017 EARL MCCONNELL MD, Ot F32.9 MAJOR DEPRESSIVE DISORDER, SINGLE EPISOD 10/08/2017 EARL MCCONNELL MD Ot I10 ESSENTIAL (PRIMARY) HYPERTENSION 10/08/2017 EARL MCCONNELL MD, Ot J01.90 ACUTE SINUSITIS, UNSPECIFIED 10/08/2017 EARL MCCONNELL MD, Ot J45.909 UNSPECIFIED ASTHMA, UNCOMPLICATED 10/08/2017 EARL MCCONNELL MD, Ot K21.9 GASTRO-ESOPHAGEAL REFLUX DISEASE WITHOUT 10/08/2017 EARL MCCONNELL MD, Ot R51 HEADACHE 10/08/2017 EARL MCCONNELL MD Ot Z68.41 BODY MASS INDEX (BMI) 40.0-44.9, ADULT 10/08/2017 EARL MCCONNELL MD Ot Z79.51 IT SYSTEMS ADMINISTRATOR (CURRENT) USE OF INHALED STERO 10/08/2017 EARL MCCONNELL MD Ot Z87.19 PERSONAL HISTORY OF OTHER DISEASES OF TH 10/08/2017 EARL MCCONNELL MD, Ot Z87.59 PERSONAL HISTORY OF COMP OF PREG, CHLDBR 10/08/2017 EARL MCCONNELL MD, Ot Z88.8 ALLERGY STATUS TO OTH DRUG/MEDS/BIOL SUB 10/12/2017 EARL MCCONNELL MD, Ot E66.9 OBESITY, UNSPECIFIED 10/12/2017 EARL MCCONNELL MD, Ot F32.9 MAJOR DEPRESSIVE DISORDER, SINGLE EPISOD 10/12/2017 EARL MCCONNELL MD Ot I10 ESSENTIAL (PRIMARY) HYPERTENSION 10/12/2017 EARL MCCONNELL MD Ot J01.90 ACUTE SINUSITIS, UNSPECIFIED 10/12/2017 EARL MCCONNELL MD Ot J45.909 UNSPECIFIED ASTHMA, UNCOMPLICATED 10/12/2017 EARL MCCONNELL MD Ot K21.9 GASTRO-ESOPHAGEAL REFLUX DISEASE WITHOUT 10/12/2017 EARL MCCONNELL MD Ot R51 HEADACHE 10/12/2017 EARL MCCONNELL MD Ot Z68.41 BODY MASS INDEX (BMI) 40.0-44.9, ADULT 10/12/2017 EARL MCCONNELL MD Ot Z79.51 CARE HOME (CURRENT) USE OF INHALED STERO 10/12/2017 EARL MCCONNELL MD Ot Z87.19 PERSONAL HISTORY OF OTHER DISEASES OF TH 10/12/2017 EARL MCCONNELL MD, Ot Z87.59 PERSONAL HISTORY OF COMP OF PREG, CHLDBR 10/12/2017 EARL MCCONNELL MD Ot Z88.8 ALLERGY STATUS TO OTH DRUG/MEDS/BIOL SUB Procedures Code Description [place] [address] ROUTINE VENIPUNCTURE 05/05/2012 14266 TSH 05/05/2012 76074 URIC ACID 05/05/2012 04141 ASO 05/05/2012 99022 CRP 05/05/2012 27450 RA FACTOR 05/05/2012 ANAANA MANUELITO ANALYZER (SCREEN) 05/05/2012 10220 ESR/SED RATE 05/05/2012 02585 LIPID PANEL 05/05/2012 36160 H PYLORI (IN-HOUSE) 08/18/2012 53850 XRAY FOOT RIGHT 2 VIEWS 11/17/2013 85890 ROUTINE VENIPUNCTURE 11/28/2013 24217 TSH 11/28/2013 29808 PAP SMEAR 11/28/2013 Podiatry Jacey Gaines 11/28/2013 Q0091 PAP SMEAR OBTAIN SMEAR 11/28/2013 59576 HEMOCCULT 11/28/2013 72925 CBC 11/28/2013 8882064 GFR CALC (RESULT ONLY) 11/28/2013 22620 CMP 11/28/2013 99262 LIPID PANEL 11/28/2013 38991 MAMMOGRAM, SCREENING 11/30/2013 33808 OXIMETRY 04/28/2014 Results Test Result Range A1C [...] 14:20 Bacteria identification in wound by culture [id number] NR FREE TEXT EXTERNAL [place]ITIVITY [place]ED AT 0835, 318 NRG QUANTITY OF GROWTH Abundant Growth NR [...] test by minimum inhibitory concentration <= NRG Complete blood count (CBC) with automated white blood cell (WBC) differential - 10/06/17 23:47 Blood leukocytes automated count (number/volume) 7.9 10*3/uL 4.3-11.0 Blood erythrocytes automated count (number/volume) 4.06 10*6/uL 4.35-5.85 Venous blood hemoglobin measurement (mass/volume) 10.7 g/dL 11.5-16.0 Blood hematocrit (volume fraction) 33 % 35-52 Automated erythrocyte mean corpuscular volume 81 [foz_us] 80-99 Automated erythrocyte mean corpuscular hemoglobin (mass per erythrocyte) 26 pg 25-34 Automated erythrocyte mean corpuscular hemoglobin concentration measurement ( mass/volume) 33 g/dL 32-36 Automated erythrocyte distribution width ratio 13.7 % 10.0-14.5 Automated blood platelet count (count/volume) 474 10*3/uL 130-400 Automated blood platelet mean volume measurement 8.7 [foz_us] 7.4-10.4 Automated blood neutrophils/100 leukocytes 81 % 42-75 Automated blood lymphocytes/100 leukocytes 9 % 12-44 Blood monocytes/100 leukocytes 8 % 0-12 Automated blood eosinophils/100 leukocytes 2 % 0-10 Automated blood basophils/100 leukocytes 0 % 0-10 Blood neutrophils automated count (number/volume) 6.4 10*3 1.8-7.8 Blood lymphocytes automated count (number/volume) 0.7 10*3 1.0-4.0 Blood monocytes automated count (number/volume) 0.6 10*3 0.0-1.0 Automated eosinophil count 0.1 10*3/uL 0.0-0.3 Automated blood basophil count (count/volume) 0.0 10*3/uL 0.0-0.1 Comprehensive metabolic panel - 10/06/17 23:47 Serum or plasma sodium measurement (moles/volume) 134 mmol/L 135-145 Serum or plasma potassium measurement (moles/volume) 3.5 mmol/L 3.6-5.0 Serum or plasma chloride measurement (moles/volume) 100 mmol/L 98-107 Carbon dioxide 23 mmol/L 21-32 Serum or plasma anion gap determination (moles/volume) 11 mmol/L 5-14 Serum or plasma urea nitrogen measurement (mass/volume) 11 mg/dL 7-18 Serum or plasma creatinine measurement (mass/volume) 0.78 mg/dL 0.60-1.30 Serum or plasma urea nitrogen/creatinine mass ratio 14 NRG Serum or plasma creatinine measurement with calculation of estimated glomerular filtration rate > NRG Serum or plasma glucose measurement (mass/volume) 113 mg/dL 70-105 Serum or plasma calcium measurement (mass/volume) 8.8 mg/dL 8.5-10.1 Serum or plasma total bilirubin measurement (mass/volume) 0.3 mg/dL 0.1-1.0 Serum or plasma alkaline phosphatase measurement (enzymatic activity/volume) 119 U/L 40-136 Serum or plasma aspartate aminotransferase measurement (enzymatic activity/ volume) 36 U/L 5-34 Serum or plasma alanine aminotransferase measurement (enzymatic activity/volume ) 31 U/L 0-55 Serum or plasma protein measurement (mass/volume) 7.4 g/dL 6.4-8.2 Serum or plasma albumin measurement (mass/volume) 3.5 g/dL 3.2-4.5 PDM - 09 PANEL (PROFILE 1) - 02/12/18 08:55 Creatinine 176.0 mg/dL > or=20.0 pH 8.24 4.5 - 9.0 Oxidant NEGATIVE mcg/mL <200 Amphetamines NEGATIVE ng/mL <500 medMATCH Amphetamines CONSISTENT NRG Benzodiazepines NEGATIVE ng/mL <100 medMATCH Benzodiazepines CONSISTENT NRG Marijuana Metabolite NEGATIVE ng/mL <20 medMATCH Marijuana Metab CONSISTENT NRG Cocaine Metabolite NEGATIVE ng/mL <150 medMATCH Cocaine Metab CONSISTENT NRG Opiates NEGATIVE ng/mL <100 medMATCH Opiates CONSISTENT NRG Oxycodone NEGATIVE ng/mL <100 medMATCH Oxycodone CONSISTENT NRG COMMENT NRG Barbiturates NEGATIVE ng/mL <300 medMATCH Barbiturates CONSISTENT NRG Methadone Metabolite NEGATIVE ng/mL <100 medMATCH Methadone Metab CONSISTENT NRG Phencyclidine NEGATIVE ng/mL <25 medMATCH Phencyclidine CONSISTENT NRG PDM - TRAMADOL - 02/12/18 08:55 COMMENT NRG Desmethyltramadol 3535 ng/mL <100 medMATCH Desmethyltram INCONSISTENT NRG Tramadol 58491 ng/mL <100 medMATCH Tramadol INCONSISTENT NRG Encounters ACCT No. Visit Date/Time Discharge Status Pt. Type Provider Facility Loc./Unit Complaint [id number] 09/27/2014 10:52:00 09/27/2014 23:59:59 [facility] Outpatient JENNIFER CANCINO APRN [id number] 08/30/2014 10:25:00 08/30/2014 23:59:59 [facility] Outpatient JENNIFER CANCINO APRN [id number] 05/31/2014 11:19:00 05/31/2014 23:59:59 [facility] JENNIFER CANCINO APRN [id number] 04/28/2014 11:30:00 04/28/2014 23:59:59 [facility] Outpatient JENNIFER CANCINO APRN [id number] 02/15/2014 10:44:00 02/15/2014 23:59:59 [facility] Outpatient OSWALD PRECIADO APRN [id number] 01/13/2014 12:24:00 01/13/2014 23:59:59 [facility] Outpatient JENNIFER CANCINO APRN [id number] 11/28/2013 09:54:00 11/28/2013 23:59:59 [facility] Outpatient JENNIFER CANCINO APRN [id number] 11/16/2013 14:58:00 11/16/2013 23:59:59 [facility] Outpatient JENNIFER CANCINO APRN [id number] 10/06/2013 15:34:00 10/06/2013 23:59:59 CLS Outpatient GEGE PRUITT DO [id number] 03/19/2013 09:57:00 03/19/2013 23:59:59 [facility] Outpatient JENNIFER CANCINO APRN [id number] 09/06/2012 10:39:00 09/06/2012 23:59:59 CLS Outpatient GEGE PRUITT DO [id number] 09/02/2012 13:25:00 09/02/2012 23:59:59 CLS Outpatient [id number] 08/18/2012 13:24:00 08/18/2012 23:59:59 [facility] Outpatient [id number] 06/09/2012 11:05:00 06/09/2012 23:59:59 CLS Outpatient ROSALIND STEIN MD [id number] 05/26/2012 11:55:00 05/26/2012 23:59:59 CLS Outpatient [id number] 02/24/2012 09:37:00 02/24/2012 23:59:59 [facility] Outpatient JENNIFER CANCINO APRN [place] [id number] 12/01/2012 11:51:00 Document Registration [id number] 12/23/2017 18:00:00 12/23/2017 23:59:59 [facility] Outpatient JENNIFER CANCINO APRN [place] [id number] 02/12/2018 08:40:00 Document Registration [id number] 08/28/2017 08:00:00 Document Registration [id number] 08/17/2017 18:00:00 Document Registration [id number] 10/06/2017 22:35:00 10/07/2017 01:35:00 DIS Emergency EARL MCCONNELL MD [facility] ER HEADACHE,NECK STIFFNESS [id number] 09/11/2017 14:23:00 09/11/2017 23:59:59 CLS Outpatient RADHA CARIAS APRN [facility] RAD R10.11 RUQ ABD PAIN [id number] 08/31/2017 11:54:00 08/31/2017 15:35:00 DIS Outpatient TANISHA BARNES DO [facility] RAD FLUID COLLECTION [id number] 08/28/2017 10:10:00 08/28/2017 14:38:00 DIS Emergency TANISHA BARNES DO [facility] ER CARDIAC ISSUES [id number] 02/05/2016 12:55:00 02/05/2016 23:59:59 CLS Outpatient MANISH CONNOR [facility] CARD ESSENTIAL HYPERTENSION [id number] 01/24/2014 06:25:00 01/25/2014 17:22:00 DIS Outpatient ROSALIND STEIN MD [facility] SDC ABD PAIN-KNOWN CHOLELITHIASIS [id number] 01/09/2014 13:42:00 01/09/2014 16:03:00 DIS Emergency JENNIFER KAUR DO [facility] ER ABD PAIN [id number] 12/12/2013 14:27:00 12/12/2013 23:59:59 CLS Outpatient CHRISSY NUNEZ APRN [facility] RAD SCREENING [id number] 01/31/2016 13:01:00 Document Registration [id number] 12/31/2011 08:47:00 Document Registration [id number] 10/09/2011 09:42:00 Document Registration
== END 2018-05-04 09:03 | disposition home or self-care (01) ==
LOC: EDUNIT# 06:17 → ER 06:18
DX: S09.90XA Unspecified injury of head, initial encounter (principal); S01.01XA Laceration without foreign body of scalp, initial encounter; J45.909 Unspecified asthma, uncomplicated; I10 Essential (primary) hypertension; K21.9 Gastro-esophageal reflux disease without esophagitis; E66.9 Obesity, unspecified; F32.9 Major depressive disorder, single episode, unspecified; R40.2142 Coma scale, eyes open, spontaneous, at arrival to emergency department; R40.2252 Coma scale, best verbal response, oriented, at arrival to emergency department; R40.2362 Coma scale, best motor response, obeys commands, at arrival to emergency department; Z23 Encounter for immunization; Z68.41 Body mass index [BMI] 40.0-44.9, adult; Z88.8 Allergy status to other drugs, medicaments and biological substances; Z87.448 Personal history of other diseases of urinary system; Z98.890 Other specified postprocedural states; Z79.51 Long term (current) use of inhaled steroids; W01.190A Fall on same level from slipping, tripping and stumbling with subsequent striking against furniture, initial encounter; Y92.59 Other trade areas as the place of occurrence of the external cause; Y99.0 Civilian activity done for income or pay
CPT/HCPCS: 12002; 70450; 90715

== ENCOUNTER 2018-05-11 13:11 | Emergency (ER) | payer OTHER ==
[~2018-05-11] VITALS: Ht 162.6 cm; Wt 105.2 kg
--- OUTSIDE RECORDS SUMMARY | 2018-05-11 13:16 | XMS REPORT ---
Author Author JENNIFER CANCINO Organization [facility] Address [address] [place] [address] Care Team Providers Care Anvilsmith Name Role Phone JENNIFER CANCINO Unavailable PROBLEMS Type Condition ICD9-CM Code DEC93-RB Code Onset Dates Condition Status SNOMED Code Problem Gastroesophageal reflux disease with esophagitis K21.0 Active 433147386 Problem Hammer toe of right foot M20.41 Active 998547346 Problem Edema, unspecified type R60.9 Active 199860236 Problem Essential hypertension I10 Active 75119523 Problem Mild persistent asthma without complication J45.30 Active 061660233 Problem Hypothyroidism (acquired) E03.9 Active 36784494 Problem Moderate persistent asthma with exacerbation J45.41 Active 996450514 Problem Abnormal EKG R94.31 Active 998154604 Problem Right upper quadrant abdominal pain R10.11 Active 880558277 Problem Other chronic pain G89.29 Active 28323856 Problem Esophageal abnormality K22.9 Active 44293067 ALLERGIES No Information ENCOUNTERS Encounter Location Date Diagnosis [facility] [id number] [place] [address] 02018- 3943 Apr, [facility] [id number] [place] [address] 56901- 7058 Apr, Hypothyroidism (acquired) E03.9 [facility] [id number] [place] [address] 98690- 2242 Apr, Edema of both legs R60.0 [facility] [id number] [place] [address] 05868- 3205 Apr, [facility] [id number] [place] [address] 14297- 4139 Apr, BMI 40.0-44.9, adult Z68.41 [facility] [address] [place] [address] 6787 Mar, BMI 40.0-44.9, adult Z68.41 [address] [address] [address] 45685- 6428 Feb, Mild persistent asthma without complication J45.30 [facility] [facility] [id number] [place] [address] 81421- 6163 Feb, Other chronic pain G89.29 [place] [address] 09116- 8507 Feb, Other chronic pain G89.29 and BMI 40.0-44.9, adult Z68.41 [place] [address] 02456- 3844 Dec, BMI 40.0-44.9, adult Z68.41 ; Other chronic pain G89.29 and Pain in left hip M25.552 [place] [id number] [place] [address] 08180- 3432 Nov, Abscess L02.91 [place] [address] 55263- 0154 Nov, Moderate persistent asthma with exacerbation J45.41 [place] [address] 98248- 6625 Nov, Low back pain M54.5 and Other chronic pain G89.29 [place] [id number] [place] [address] 37735- 3556 October, Abscess L02.91 [facility] [id number] [place] [address] 48134- 5390 October, Cutaneous abscess of back excluding buttocks L02.212 and BMI 40.0-44.9, adult Z68.41 [facility] [facility] [id number] [place] [address] 02117- 5363 October, [place] [address] [place] [address]- 4154 October, [place] [address] 59729- 4331 Sep, [place] [address] 80868- 3624 Sep, Abscess L02.91 [place] [address] 07416- 5926 Sep, Right upper quadrant abdominal pain R10.11 ; Mild persistent asthma without complication J45.30 and BMI 40.0-44.9, adult Z68.41 [place] [address] 80045- 5840 28 Aug, 2017 Abscess L02.91 and BMI 40.0-44.9, adult Z68.41 [place] [address] 32661- 9871 Aug, Edema, unspecified type R60.9 [place] [address] 13793- 7278 Aug, Right upper quadrant abdominal pain R10.11 ; Abnormal EKG R94.31 ; Esophageal abnormality K22.9 and BMI 40.0-44.9, adult Z68.41 [place] [facility] [id number] [place] [address] 26939- 9859 Aug, Hammer toe of right foot M20.41 and Onychomycosis B35.1 [facility] [id number] [place] [address] 00364 -0986 Aug, Myalgia M79.1 [place] [address] 67337- 5333 Aug, [place] [facility] [id number] [place] [address] 28394- 8806 Aug, Annual physical exam Z00.00 ; BMI 40.0-44.9, adult Z68.41 ; Mild persistent asthma without complication J45.30 ; Gastroesophageal reflux disease with esophagitis K21.0 ; Acute right-sided thoracic back pain M54.6 ; Trouble breathing R06.89 and Neck pain M54.2 [place] [id number] [place] [address] 42010- 8533 28 Jul, 2017 Mild persistent asthma without complication J45.30 [place] [id number] [place] [address] 56700- 0957 27 Jul, 2017 Edema, unspecified type R60.9 [place] [id number] [place] [address] 77172- 5215 Jun, Edema, unspecified type R60.9 [place] [address] 83753- 8936 Jun, Moderate persistent asthma with exacerbation J45.41 [place] [address] 04849- 5257 May, Edema, unspecified type R60.9 [place] [id number] [place] [address] 70162- 4424 May, Moderate persistent asthma with exacerbation J45.41 and Hammer toe of right foot M20.41 [place] [facility] [id number] [place] [address] 48786- 2937 04 May, 2017 Moderate persistent asthma without complication J45.40 ; Dysfunction of left eustachian tube H69.82 and BMI 45.0-49.9, adult Z68.42 [place] [id number] [place] [address] 81504- 6543 Apr, Edema, unspecified type R60.9 [place] [id number] [place] [address] 10678- 4770 Mar, Edema, unspecified type R60.9 [facility] [facility] [id number] [place] [address] 98734- 3889 Feb, Edema, unspecified type R60.9 [place] [id number] [place] [address] 18175- 5910 Jan, Edema, unspecified type R60.9 [facility] [id number] [place] [address] 70223- 0263 Jan, Mild persistent asthma without complication J45.30 [facility] [id number] [place] [address] 04725- 5698 Dec, Edema, unspecified type R60.9 [facility] [id number] [place] [address] 93451- 3233 Nov, Edema, unspecified type R60.9 and Essential hypertension I10 [place] [id number] [place] [address] 04074- 0737 October, Pain in left knee M25.562 [place] [facility] [id number] [place] [address] 69305- 1555 October, Pain in left knee M25.562 [facility] [id number] [place] [address] 81273- 9960 October, [place] [id number] [place] [address] 19611- 4603 Sep, [facility] [id number] [place] [address] 31658- 7761 Sep, Mild persistent asthma without complication J45.30 [facility] [id number] [place] [address] 14006- 0231 Sep, Pain in left knee M25.562 [facility] [id number] [place] [address] 90803- 1311 Aug, Acute nasopharyngitis J00 and Seasonal allergic rhinitis due to pollen J30.1 [facility] [id number] [place] [address] 49831- 2339 16 Aug, 2016 [facility] [id number] [place] [address] 54359- 4557 Aug, Arthralgia, unspecified joint M25.50 and Pain in left knee M25.562 [facility] [id number] [place] [address] 83384- 8125 Aug, Mild persistent asthma without complication J45.30 [facility] [id number] [place] [address] 87353- 9334 28 Jul, 2016 Mild persistent asthma without complication J45.30 [facility] [id number] [place] [address] 29340- 2765 13 Jul, 2016 Pain in left knee M25.562 [place] [address] 94356- 2104 Jun, [facility] [id number] [place] [address] 34323 -8218 Jun, [facility] [address] 21155- 7508 Jun, Mild persistent asthma without complication J45.30 [facility] [id number] [place] [address] 69092- 1914 May, [place] [address] 46126- 5854 Apr, Restrictive lung disease J98.4 [facility] [id number] [place] [address] 57996- 1334 Apr, [facility] [id number] [place] [address] 95743- 3801 Apr, Mild persistent asthma without complication J45.30 [facility] [id number] [place] [address] 77340 -5887 Mar, Sore throat J02.9 and Post-nasal drainage R09.82 [facility] [id number] [place] [address] 98083- 1320 Mar, [facility] [address] 65512- 5768 Feb, [facility] [address] [address]- 1203 Feb, Mild persistent asthma without complication J45.30 [facility] [address] [address]- 8545 Feb, Arthralgia, unspecified joint M25.50 [place] [id number] [place] [address] 13719- 0471 Feb, Edema, unspecified type R60.9 ; Arthralgia, unspecified joint M25.50 ; Mild persistent asthma without complication J45.30 ; Essential hypertension I10 ; Gastroesophageal reflux disease without esophagitis K21.9 and Major depressive disorder with single episode, remission status unspecified F32.9 [place] [address] [address]- 8139 Jan, Edema, unspecified type R60.9 ; Essential hypertension I10 ; Mild persistent asthma without complication J45.30 ; Gastroesophageal reflux disease with esophagitis K21.0 ; Arthralgia, unspecified joint M25.50 and Major depressive disorder with single episode, remission status unspecified F32.9 [place] [id number] [place] [address] 06746- 8344 Jan, [place] [address] [address]- 8935 Dec, [facility] [id number] [place] [address] 23464- 9184 Dec, [facility] [id number] [place] [address] 92174- 0256 Dec, [facility] [id number] [place] [address] 63776- 6554 Nov, Bilateral edema of lower extremity R60.0 [facility] [address] [address]- 0425 Nov, Bilateral edema of lower extremity R60.0 [facility] [address] [address] -3302 Nov, [facility] [id number] [place] [address] 79866- 0504 Nov, [facility] [address] [address]- 6548 October, [facility] [id number] [place] [address] 45581- 6410 Sep, [facility] [id number] [place] [address] 10100- 1013 Aug, Acute sinusitis J01.90 [facility] [id number] [place] [address] 89754- 4569 Aug, [facility] [id number] [place] [address] 73366- 4649 Aug, [facility] [id number] [place] [address] 51238- 3885 Jul, [facility] [id number] [place] [address] 09013- 6586 Jul, Pharyngitis J02.9 [facility] [address] [address]- 0616 Jul, [facility] [address] [address]- 9556 Jun, Pain in left knee M25.562 [facility] [address] [address]- 3904 Jun, [facility] [id number] [place] [address] 77493 -3043 May, Upper respiratory symptom R09.89 [facility] [address] [address]- 6415 May, [facility] [id number] [place] [address] 62324- 3009 Apr, Costochondritis M94.0 and Knee pain, left M25.562 [facility] [id number] [place] [address] 637318- 6990 Apr, [facility] [id number] [place] [address] 44912- 5109 Mar, Eustachian tube dysfunction, left H69.82 [facility] [id number] [place] [address] 31692- 5994 Mar, [facility] [id number] [place] [address] 19898- 9778 Mar, [facility] [id number] [place] [address] 035113- 1898 Mar, [facility] [id number] [place] [address] 21296- 5820 Feb, [facility] [id number] [place] [address] 93804- 7536 Feb, [facility] [id number] [place] [address] 30134- 0039 Feb, [facility] [id number] [place] [address] 44360- 9301 Jan, Asthma 493.90 [facility] [address] [address]- 6770 Dec, [facility] [id number] [address]- 1127 Dec, [facility] [address] [address]- 8862 Dec, [facility] [id number] [place] [address] 75863- 6890 Dec, [facility] [address] 6715 Dec, Asthma, unspecified, unspecified status 493.90 [facility] [id number] [address]- 8297 Nov, [facility] [address] [address]- 2461 Nov, Asthma, unspecified, unspecified status 493.90 [facility] [address] [address]- 3937 October, Asthma, unspecified, unspecified status 493.90 [facility] [address] [address]- 0016 October, [facility] [id number] [place] [address] 84575- 9800 October, Contact dermatitis 692.9 and Candidiasis of skin 112.3 [facility] [address] [address]- 0239 Sep, [facility] [address] [address]- 6136 Sep, [facility] [address] [address]- 0347 Aug, [facility] [address] [address]- 0615 Aug, [facility] [id number] [address]- 9626 Aug, [facility] [address] [address]- 0583 Aug, [facility] [id number] [address]- 8620 Jul, [facility] [address] [address]- 3860 Jul, [facility] [id number] 2830 Jun, [facility] [id number] [place] [address]- 1051 Jun, [facility] [place] [facility] [address] [id number] [place] [address]- 8644 May, [facility] [place] [facility] [address] [id number] [place] [address]- 3926 May, [facility] [place] [facility] [address] [id number] [place] [address]- 6813 May, [facility] [place] [facility] [address] [id number] [place] [address]- 1107 May, [facility] [place] [facility] [address] [id number] [place] [address]- 8502 May, [facility] [place] [facility] [address] [id number] [place] [address]- 6942 May, [facility] [place] [facility] [address] [id number] [place] [address]- 1656 Apr, [facility] [place] [facility] [address] [id number] [place] [address]- 4169 Apr, [facility] [place] [facility] [address] [id number] [place] [address]- 9634 15 Feb, 2014 [facility] [place] [facility] [address] [id number] [place] [address]- 9413 15 Feb, 2014 [facility] [place] [facility] [address] [id number] [place] [address]- 2548 10 Feb, 2014 [facility] [place] [facility] [address] [id number] [place] [address]- 2543 10 Feb, 2014 [facility] [place] [facility] [address] [id number] [place] [address]- 2544 05 Feb, 2014 [facility] [place] [facility] [address] [id number] [place] [address]- 2541 05 Feb, 2014 [facility] [place] [facility] [address] [id number] [place] [address]- 1466 Jan, [facility] [place] [facility] [address] [id number] [place] [address]- 2829 Jan, [facility] [place] [facility] [address] [id number] [place] [address]- 9511 Jan, [facility] [place] [facility] [address] [id number] [place] [address]- 7159 Jan, [facility] [place] [facility] [address] [id number] [place] [address]- 4274 Jan, [facility] [place] [facility] [address] [id number] [place] [address]- 4677 Jan, [facility] [place] [facility] [address] [id number] [place] [address]- 5304 Dec, [facility] [place] [facility] [address] [id number] [place] [address]- 5162 Dec, [facility] [place] [facility] [address] [id number] [place] [address]- 1011 Nov, [facility] [place] [facility] [address] [id number] [place] [address]- 5727 Nov, [facility] [place] [facility] [address] [id number] [place] [address]- 1470 Nov, [facility] [place] [facility] [address] [id number] [place] [address]- 5047 Nov, [facility] [place] [facility] [address] [id number] [place] [address]- 1583 Nov, [facility] [place] [facility] [address] [id number] [place] [address]- 5360 Nov, [facility] [place] [facility] [address] [id number] [place] [address]- 0218 Nov, [facility] [place] [facility] [address] [id number] [place] [address]- 6991 Nov, [facility] [place] [facility] [address] [id number] [place] [address]- 8715 Nov, [facility] [place] [facility] [address] [id number] [place] [address]- 9976 Nov, [facility] [place] [facility] [address] [id number] [place] [address]- 0859 Nov, [facility] [place] [facility] [address] [id number] [place] [address]- 9745 Nov, [facility] [place] [facility] [address] [id number] [place] [address]- 1284 Nov, [facility] [place] [facility] [address] [id number] [place] [address]- 4804 October, [facility] [place] [facility] [address] [id number] [place] [address]- 8478 October, [facility] [place] [facility] [address] [id number] [place] [address]- 3370 October, [facility] [place] [facility] [address] [id number] [place] [address]- 5150 October, [facility] [place] [facility] [address] [id number] [place] [address]- 2627 Sep, [facility] [place] [facility] [address] [id number] [place] [address]- 6535 Sep, [facility] [place] [facility] [address] [id number] [place] [address]- 8135 Sep, [facility] [place] [facility] [address] [id number] [place] [address]- 6346 Sep, [facility] [place] [facility] [address] [id number] [place] [address]- 1389 Aug, [facility] [place] [facility] [address] [id number] [place] [address]- 5665 Aug, [facility] [place] [facility] [address] [id number] [place] [address]- 8736 Jul, [facility] [place] [facility] [address] [id number] [place] [address]- 2676 Jul, [facility] [address] [id number] [place] [address]- 5977 Jun, [facility] [place] [facility] [address] [id number] [place] [address] 2546 Jun, [facility] [place] [facility] [address] [id number] [place] [address]- 9917 Mar, [facility] [place] [facility] [address] [id number] [place] [address]- 7928 Mar, [facility] [place] [facility] [address] [id number] [place] [address] Mar, [facility] [place] [facility] [address] [id number] [place] [address] Mar, [facility] [place] [facility] [address] [id number] [place] [address] Mar, [facility] [place] [facility] [address] [id number] [place] [address] Feb, [facility] [place] [facility] [address] [id number] [place] [address] Feb, [facility] [place] [facility] [address] [id number] [place] [address] Dec, [facility] [place] [facility] [address] [id number] [place] [address] Nov, [facility] [place] [facility] [address] [id number] [place] [address] October, [facility] [place] [facility] [address] [id number] [place] [address] Sep, [facility] [place] [facility] [address] [id number] [place] [address]- [address] Sep, [facility] [place] [facility] [address] [id number] [place] [address]- [address] 29 Aug, 2012 [facility] [place] [facility] [address] [id number] [place] [address] 28 Aug, 2012 [facility] [place] [facility] [address] [id number] [place] [address] 13 Aug, 2012 [facility] [place] [facility] [address] [id number] [place] [address] 12 Aug, 2012 [facility] [place] [facility] [address] [id number] [place] [address]- [address] 14 Jun, 2012 [facility] [place] [facility] [address] [id number] [place] [address]- [address] Jun, [facility] [place] [facility] [address] [id number] [place] [address]- [address] Jun, [facility] [place] [facility] [address] [id number] [place] [address] May, [facility] [place] [facility] [address] [id number] [place] [address]- [address] May, [facility] [place] [facility] [address] [id number] [place] [address]- [address] Apr, [facility] [place] [facility] [address] [id number] [place] [address]- [address] Apr, [facility] [place] [facility] [address] [id number] [place] [address]- [address] Apr, [facility] [place] [facility] [address] [id number] [place] [address] Apr, [facility] [place] [facility] [address] [id number] [place] [address]- [address] Apr, [facility] [place] [facility] [address] [id number] [place] [address]- [address] Apr, [facility] [place] [facility] [address] [id number] [place] [address]- [address] Apr, [facility] [place] [facility] [address] [id number] [place] [address]- [address] 31 Mar, 2012 [facility] [place] [facility] [address] [id number] [place] [address] 31 Mar, 2012 [facility] [place] [facility] [address] [id number] [place] [address] 18 Feb, 2012 [facility] [place] [facility] [address] [id number] [place] [address]- [address] 17 Feb, 2012 [facility] [place] [facility] [address] [id number] [place] [address]- [address] 13 Feb, 2012 [facility] [place] [facility] [address] [id number] [place] [address]- [address] 15 Jan, 2012 [facility] [place] [facility] [address] [id number] [place] [address]- [address] Jan, [facility] [place] [facility] [address] [id number] [place] [address]- [address] Jan, [facility] [place] [facility] [address] [id number] [place] [address] Jan, [facility] [place] [facility] [address] [id number] [place] [address]- [address] Dec, [facility] [place] [facility] [address] [id number] [place] [address]- [address] Dec, [facility] [place] [facility] [address] [id number] [place] [address]- [address] Dec, [facility] [place] [facility] [address] [id number] [place] [address]- [address] Dec, [facility] [place] [facility] [address] [id number] [place] [address]- [address] Dec, [facility] [place] [facility] [address] [id number] [place] [address]- [address] Nov, [facility] [place] [facility] [address] [id number] [place] [address]- [address] Nov, [facility] [place] [facility] [address] [id number] [place] [address] Nov, [facility] [place] [facility] [address] [id number] [place] [address]- [address] Nov, [facility] [place] [facility] [address] [id number] [place] [address] October, [facility] [place] [facility] [address] [id number] [place] [address] October, [facility] [place] [facility] [address] [id number] [place] [address] October, [facility] [place] [facility] [address] [id number] [place] [address] October, [facility] [address] [id number] [place] [address] October, [facility] [place] [facility] [address] [id number] [place] [address] Sep, [facility] [place] [facility] [address] [id number] [place] [address] Sep, [facility] [place] [facility] [address] [id number] [place] [address] Sep, [facility] [place] [facility] [address] [id number] [place] [address] Sep, [facility] [place] [facility] [address] [id number] [place] [address] Sep, [facility] [place] [facility] [address] [id number] [place] [address] 29 Aug, 2011 [facility] [place] [facility] [address] [id number] [place] [address] 28 Aug, 2011 [facility] [place] [facility] [address] [id number] [place] [address] 27 Aug, 2011 [facility] [place] [facility] [address] [id number] [place] [address] 26 Aug, 2011 [facility] [address] [id number] [place] [address] 23 Aug, 2011 [facility] [place] [facility] [address] [id number] [place] [address] 20 Aug, 2011 [facility] [place] [facility] [address] [id number] [place] [address] 19 Aug, 2011 [facility] [place] [facility] [address] [id number] [place] [address] 17 Aug, 2011 [facility] [place] [facility] [address] [id number] [place] [address] 18 Jun, 2011 [facility] [place] [facility] [address] [id number] [place] [address] Jun, [facility] [place] [facility] [address] [id number] [place] [address] Jun, [facility] [place] [facility] [address] [id number] [place] [address]- [address] Jun, [facility] [address] [id number] [place] [address] Jun, [facility] [place] [facility] [address] [id number] [place] [address] May, [facility] [place] [facility] [address] [id number] [place] [address] 29 Apr, 2011 [facility] [place] [facility] [address] [id number] [place] [address] October, [facility] [place] [facility] [address] [id number] [place] [address] May, [facility] [place] [facility] [address] [id number] [place] [address] 24 May, 2010 [facility] [place] [facility] [address] [id number] [place] [address] 29 Apr, 2010 [facility] [place] [facility] [address] [id number] [address] Jan, [facility] [address] [id number] [address] Dec, [facility] [id number] [address] Sep, [facility] [id number] [address] Sep, [facility] [id number] [address] Jul, [facility] [id number] [address] May, [facility] [address] [id number] [address] Jan, IMMUNIZATIONS No Known Immunizations SOCIAL HISTORY Never Assessed REASON FOR VISIT Lab results PLAN OF CARE VITAL SIGNS MEDICATIONS Unknown [...]
--- OUTSIDE RECORDS SUMMARY | 2018-05-11 13:17 | XMS REPORT ---
Author Author JENNIFER CANCINO Organization [facility] Address [address] [place] [address] Care Team Providers Care M1 Armor Crewman Name Role Phone JENNIFER CANCINO Unavailable PROBLEMS Type Condition ICD9-CM Code WVA01-YF Code Onset Dates Condition Status SNOMED Code Problem Mild persistent asthma without complication J45.30 Active 824245144 Problem Edema, unspecified type R60.9 Active 015758817 Problem Gastroesophageal reflux disease with esophagitis K21.0 Active 518634460 Problem Essential hypertension I10 Active 71366214 Problem Moderate persistent asthma with exacerbation J45.41 Active 004185227 Problem Other chronic pain G89.29 Active 88955600 Problem Esophageal abnormality K22.9 Active 23963187 Problem Hammer toe of right foot M20.41 Active 704322301 Problem Abnormal EKG R94.31 Active 291447408 Problem Right upper quadrant abdominal pain R10.11 Active 804256122 ALLERGIES No Information ENCOUNTERS Encounter Location Date Diagnosis [place] [address] [address] Apr, [place] [address] [address]- 57[address] Apr, Edema of both legs R60.0 [facility] [address] [place] [id number] [place] [address] 53223- 2663 Apr, [facility] [address] [address]- 8339 Apr, BMI 40.0-44.9, adult Z68.41 [facility] [address] [address]- 3951 Mar, BMI 40.0-44.9, adult Z68.41 [place] [address] 38691- 0771 Feb, Mild persistent asthma without complication J45.30 [place] [id number] [place] [address] 65832- 5988 07 Feb, 2018 Other chronic pain G89.29 [place] [address] [place] [id number] [place] [address] 63037- 1855 Feb, Other chronic pain G89.29 and BMI 40.0-44.9, adult Z68.41 [place] [address] [place] [id number] [place] [address] 43795- 0243 Dec, BMI 40.0-44.9, adult Z68.41 ; Other chronic pain G89.29 and Pain in left hip M25.552 [place] [address] [place] [id number] [place] [address] 59587- 3955 Nov, Abscess L02.91 [place] [address] [place] [id number] [place] [address] 36046- 5890 Nov, Moderate persistent asthma with exacerbation J45.41 [place] [address] [place] [id number] [place] [address] 89059- 2286 Nov, Low back pain M54.5 and Other chronic pain G89.29 [place] [address] [place] [id number] [place] [address] 10391- 3737 October, Abscess L02.91 [place] [address] [place] [id number] [place] [address] 17209- 1661 October, Cutaneous abscess of back excluding buttocks L02.212 and BMI 40.0-44.9, adult Z68.41 [place] [address] [place] [id number] [place] [address] 63867- 2468 October, [place] [address] [place] [id number] [place] [address] 26478- 6545 October, [place] [address] [place] [id number] [place] [address] 10397- 6651 Sep, [place] [address] [place] [id number] [place] [address] 09244- 8111 Sep, Abscess L02.91 [place] [address] [place] 114459- 1441 Sep, Right upper quadrant abdominal pain R10.11 ; Mild persistent asthma without complication J45.30 and BMI 40.0-44.9, adult Z68.41 [place] [address] 25404- 1599 28 Aug, 2017 Abscess L02.91 and BMI 40.0-44.9, adult Z68.41 [place] [address] 021971- 5004 Aug, Edema, unspecified type R60.9 [place] [address] 34398- 5789 Aug, Right upper quadrant abdominal pain R10.11 ; Abnormal EKG R94.31 ; Esophageal abnormality K22.9 and BMI 40.0-44.9, adult Z68.41 [place] [address] [place] [id number] [place] [address] 22946- 6169 Aug, Hammer toe of right foot M20.41 and Onychomycosis B35.1 [facility] [address] [place] [id number] [place] [address] 20062 -4013 Aug, Myalgia M79.1 [place] [address] [place] [id number] [place] [address] 49437- 6141 Aug, [place] [address] [place] [id number] [place] [address] 52573- 4536 Aug, Annual physical exam Z00.00 ; BMI 40.0-44.9, adult Z68.41 ; Mild persistent asthma without complication J45.30 ; Gastroesophageal reflux disease with esophagitis K21.0 ; Acute right-sided thoracic back pain M54.6 ; Trouble breathing R06.89 and Neck pain M54.2 [place] [address] [place] [address]- 2237 28 Jul, 2017 Mild persistent asthma without complication J45.30 [place] [address] [place] [id number] [place] [address] 12605- 5238 Jul, Edema, unspecified type R60.9 [place] [address] [place] [id number] [place] [address] 26515- 7711 Jun, Edema, unspecified type R60.9 [place] [address] [place] [id number] [place] [address] 51035- 8685 Jun, Moderate persistent asthma with exacerbation J45.41 [place] [address] 57293- 7502 May, Edema, unspecified type R60.9 [place] [address] [place] [id number] [place] [address] 21162- 6219 May, Moderate persistent asthma with exacerbation J45.41 and Hammer toe of right foot M20.41 [place] [address] [place] [id number] [place] [address] 65519- 1247 May, Moderate persistent asthma without complication J45.40 ; Dysfunction of left eustachian tube H69.82 and BMI 45.0-49.9, adult Z68.42 [place] [address] [place] [id number] [place] [address] 21516- 8838 Apr, Edema, unspecified type R60.9 [place] [address] [place] [id number] [place] [address] 62766- 9439 Mar, Edema, unspecified type R60.9 [place] [address] [place] [id number] [place] [address] 31975- 3229 Feb, Edema, unspecified type R60.9 [place] [address] [place] [id number] [place] [address] 15705- 7172 Jan, Edema, unspecified type R60.9 [place] [address] 00931- 3858 Jan, Mild persistent asthma without complication J45.30 [facility] [address] [place] [id number] [place] [address] 82593- 4007 Dec, Edema, unspecified type R60.9 [facility] [address] [place] [id number] [place] [address] 18250- 1513 Nov, Edema, unspecified type R60.9 and Essential hypertension I10 [place] [address] [place] [id number] [place] [address] 17208- 8896 October, Pain in left knee M25.562 [place] [address] 07958- 4864 October, Pain in left knee M25.562 [place] [address] [place] [id number] [place] [address] 92366- 9764 October, [place] [address] 94284- 9031 Sep, [place] [address] [place] [id number] [place] [address] 00894- 6150 Sep, Mild persistent asthma without complication J45.30 [place] [address] [place] [id number] [place] [address] 47037- 2223 Sep, Pain in left knee M25.562 [place] [address] [place] [id number] [place] [address] 63375- 1745 Aug, Acute nasopharyngitis J00 and Seasonal allergic rhinitis due to pollen J30.1 [place] [address] [place] [id number] [place] [address] 18949- 5342 Aug, [place] [address] [place] [id number] [place] [address] 38364- 3203 Aug, Arthralgia, unspecified joint M25.50 and Pain in left knee M25.562 [place] [address] [place] [id number] [place] [address] 19999- 1445 Aug, Mild persistent asthma without complication J45.30 [facility] [address] [address]- 4229 28 Jul, 2016 Mild persistent asthma without complication J45.30 [facility] [address] [address]- 9666 13 Jul, 2016 Pain in left knee M25.562 [facility] [address] [place] [id number] [place] [address] 17712- 5684 14 Jun, 2016 [facility] [address] [place] [id number] [place] [address] 09161 -6825 Jun, [facility] [address] [place] [id number] [place] [address] 44654- 9654 Jun, Mild persistent asthma without complication J45.30 [facility] [address] [place] [id number] [place] [address] 33705- 9330 May, [facility] [address] [place] [id number] [place] [address] 94005- 0966 Apr, Restrictive lung disease J98.4 [facility] [address] [place] [id number] [place] [address] 27510- 4172 Apr, [facility] [address] [place] [address] 92517- 8059 Apr, Mild persistent asthma without complication J45.30 [facility] [address] [address] -6751 Mar, Sore throat J02.9 and Post-nasal drainage R09.82 [facility] [address] [place] [address] 90334- 0341 Mar, [facility] [address] [place] [id number] [place] [address] 67073- 1294 Feb, [facility] [address] [place] [address] 08351- 1595 Feb, Mild persistent asthma without complication J45.30 [facility] [address] [address]- 1280 Feb, Arthralgia, unspecified joint M25.50 [facility] [address] [place] [address] 65199- 4084 Feb, Edema, unspecified type R60.9 ; Arthralgia, unspecified joint M25.50 ; Mild persistent asthma without complication J45.30 ; Essential hypertension I10 ; Gastroesophageal reflux disease without esophagitis K21.9 and Major depressive disorder with single episode, remission status unspecified F32.9 [facility] [address] [address]- 6329 Jan, Edema, unspecified type R60.9 ; Essential hypertension I10 ; Mild persistent asthma without complication J45.30 ; Gastroesophageal reflux disease with esophagitis K21.0 ; Arthralgia, unspecified joint M25.50 and Major depressive disorder with single episode, remission status unspecified F32.9 [facility] [address] [address]- 0005 Jan, [facility] [address] [place] [id number] [place] [address] 02745- 4060 Dec, [facility] [address] [place] [id number] [place] [address] 98002- 2797 Dec, [facility] [address] [address]- 7197 Dec, [facility] [address] [place] [id number] [place] [address] 20882- 6230 Nov, Bilateral edema of lower extremity R60.0 [facility] [address] [address]- 1329 Nov, Bilateral edema of lower extremity R60.0 [facility] [address] [address] -9271 Nov, [facility] [address] [place] [id number] [place] [address] 38621- 7911 Nov, [facility] [id number] [place] [address] 36203- 6954 October, [facility] [address] [place] [id number] [place] [address] 85317- 4634 Sep, [facility] [address] [place] [id number] [place] [address] 77461- 7302 Aug, Acute sinusitis J01.90 [facility] [address] [place] [id number] [place] [address] 08436- 5582 Aug, [facility] [address] [place] [id number] [place] [address] 37335- 0007 Aug, [facility] [address] [place] [id number] [place] [address] 42225- 0480 Jul, [facility] [address] [place] [id number] [place] [address] 22926- 4170 Jul, Pharyngitis J02.9 [facility] [address] [place] [id number] [place] [address] 60910- 5075 Jul, [facility] [address] [place] [id number] [place] [address] 03587- 3716 Jun, Pain in left knee M25.562 [facility] [address] [place] [id number] [place] [address] 93427- 8049 Jun, [facility] [address] [id number] [place] [address] 24698 -5793 May, Upper respiratory symptom R09.89 [facility] [address] [place] [id number] [place] [address] 43081- 0725 May, [facility] [address] [place] [id number] [place] [address] 11691- 0894 Apr, Costochondritis M94.0 and Knee pain, left M25.562 [facility] [address] [place] [id number] [place] [address] 56051- 5911 Apr, [facility] [address] [address]- 3143 Mar, Eustachian tube dysfunction, left H69.82 [facility] [address]- 9822 Mar, [facility] [address] [address]- 8903 Mar, [facility] [address] [address]- 9326 Mar, [facility] [id number] [place] [address] 44974- 6206 Feb, [facility] [address] [id number] [address]- 1812 Feb, [facility] [address] [place] [id number] [place] [address] 42170- 1437 Feb, [facility] [address] [address]- 5884 Jan, Asthma 493.90 [facility] [address] [id number] [address]- 8039 Dec, [facility] [address] [address]- 0346 Dec, [facility] [address] [address]- 2170 Dec, [facility] [address] [address]- 3930 Dec, [facility] [address] [id number] 3173 Dec, Asthma, unspecified, unspecified status 493.90 [facility] [address] [address]- 6687 Nov, [facility] [address] [id number] [address]- 6948 Nov, Asthma, unspecified, unspecified status 493.90 [facility] [address] [address]- 3678 October, Asthma, unspecified, unspecified status 493.90 [facility] [address] [address]- 5076 October, [facility] [address] 2223 October, Contact dermatitis 692.9 and Candidiasis of skin 112.3 [facility] [address] [address]- 1097 Sep, [facility] [address] [address]- 3349 Sep, [facility] [address] [address]- 7300 Aug, [facility] [address] [address]- 1553 Aug, [facility] [address] 6070 Aug, [facility] [address] [address]- 0395 Aug, [facility] [address] [address]- 9560 Jul, [facility] [address] [address]- 0216 Jul, [facility] [address] [address]- 5216 Jun, [facility] [address] [address]- 4946 Jun, [facility] [address] [place] [id number] [address]- 4206 May, [facility] [place] [facility] [address] [id number] [place] [address]- 9600 May, [facility] [place] [facility] [address] [id number] [place] [address]- 1014 May, [facility] [place] [facility] [address] [id number] [place] [address]- 4782 May, [facility] [place] [facility] [address] [id number] [place] [address]- 5972 May, [facility] [place] [facility] [address] [id number] [place] [address]- 6978 May, [facility] [place] [facility] [address] [id number] [place] [address]- 2585 Apr, [facility] [place] [facility] [address] [id number] [place] [address]- 5242 Apr, [facility] [place] [facility] [address] [id number] [place] [address]- 9001 Feb, [facility] [place] [facility] [address] [id number] [place] [address]- 7535 15 Feb, 2014 [facility] [place] [facility] [address] [id number] [place] [address]- 5323 Feb, [facility] [place] [facility] [address] [id number] [place] [address]- 2156 Feb, [facility] [place] [facility] [address] [id number] [place] [address]- 1849 Feb, [facility] [place] [facility] [address] [id number] [place] [address]- 2353 Feb, [facility] [place] [facility] [address] [id number] [place] [address]- 9873 Jan, [facility] [place] [facility] [address] [id number] [place] [address]- 8579 Jan, [facility] [place] [facility] [address] [id number] [place] [address]- 0845 Jan, [facility] [place] [facility] [address] [id number] [place] [address]- 1712 Jan, [facility] [place] [facility] [address] [id number] [place] [address]- 8475 Jan, [facility] [place] [facility] [address] [id number] [place] [address]- 9284 Jan, [facility] [place] [facility] [address] [id number] [place] [address]- 3345 Dec, [facility] [place] [facility] [address] [id number] [place] [address]- 8359 Dec, [facility] [place] [facility] [address] [id number] [place] [address]- 1566 Nov, [facility] [place] [facility] [address] [id number] [place] [address]- 8113 Nov, [facility] [place] [facility] [address] [id number] [place] [address]- 6916 Nov, [facility] [place] [facility] [address] [id number] [place] [address]- 8791 Nov, [facility] [place] [facility] [address] [id number] [place] [address]- 0925 Nov, [facility] [place] [facility] [address] [id number] [place] [address]- 6971 Nov, [facility] [place] [facility] [address] [id number] [place] [address]- 9402 Nov, [facility] [place] [facility] [address] [id number] [place] [address]- 7572 Nov, [facility] [place] [facility] [address] [id number] [place] [address]- 8447 Nov, [facility] [place] [facility] [address] [id number] [place] [address]- 8921 Nov, [facility] [place] [facility] [address] [id number] [place] [address]- 2206 Nov, [facility] [place] [facility] [address] [id number] [place] [address]- 0534 Nov, [facility] [place] [facility] [address] [id number] [place] [address]- 8978 Nov, [facility] [place] [facility] [address] [id number] [place] [address]- 8358 October, [facility] [place] [facility] [address] [id number] [place] [address]- 3534 October, [facility] [place] [facility] [address] [id number] [place] [address]- 1742 October, [facility] [place] [facility] [address] [id number] [place] [address]- 9514 October, [facility] [place] [facility] [address] [id number] [place] [address]- 5227 Sep, [facility] [place] [facility] [address] [id number] [place] [address]- 3560 Sep, [facility] [place] [facility] [address] [id number] [place] [address]- 5883 Sep, [facility] [place] [facility] [address] [id number] [place] [address]- 7084 Sep, [facility] [place] [facility] [address] [id number] [place] [address]- 1232 Aug, [facility] [place] [facility] [address] [id number] [place] [address]- 4969 Aug, [facility] [place] [facility] [address] [id number] [place] [address]- 2445 Jul, [facility] [place] [facility] [address] [id number] [place] 8156 Jul, [facility] [place] [facility] [address] [id number] [place] [address]- 1236 Jun, [facility] [place] [facility] [address] [id number] [place] [address]- 0694 Jun, [facility] [place] [facility] [address] [id number] [place] [address]- 9063 Mar, [facility] [place] [facility] [address] [id number] [place] [address]- 8578 Mar, [facility] [place] [facility] [address] [id number] [place] [address]- 7207 Mar, [facility] [place] [facility] [address] [id number] [place] [address]- 6156 Mar, [facility] [place] [facility] [address] [id number] [place] [address] Mar, [facility] [place] [facility] [address] [id number] [place] [address] Feb, [facility] [place] [facility] [address] [id number] [place] [address] Feb, [facility] [place] [facility] [address] [id number] [place] [address] Dec, [facility] [place] [facility] [address] [id number] [place] [address] Nov, [facility] [place] [facility] [address] [id number] [place] [address] October, [facility] [place] [facility] [address] [id number], [place] [address] Sep, [facility] [place] [facility] [address] [id number] [place] [address] Sep, [facility] [place] [facility] [address] [id number], [place] [address] Aug, [facility] [place] [facility] [address] [id number] [place] [address] Aug, [facility] [place] [facility] [address] [id number] [place] [address] 13 Aug, 2012 [facility] [place] [facility] [address] [id number] [place] [address] 12 Aug, 2012 [facility] [place] [facility] [address] [id number] [place] [address] 14 Jun, 2012 [facility] [place] [facility] [address] [id number] [place] [address] Jun, [facility] [place] [facility] [address] [id number] [place] [address] Jun, [facility] [place] [facility] [address] [id number] [place] [address] May, [facility] [place] [facility] [address] [id number] [place] [address] May, [facility] [place] [facility] [address] [id number] [place] [address] 29 Apr, 2012 [facility] [place] [facility] [address] [id number] [place] [address] Apr, [facility] [place] [facility] [address] [id number] [place] [address] Apr, [facility] [place] [facility] [address] [facility] [id number] [place] [address] Apr, [facility] [place] [facility] [address] [id number] [place] [address] Apr, [facility] [place] [facility] [address] [id number] [place] [address]69 Apr, [facility] [place] [facility] [address] [id number] [place] [address] Apr, [facility] [place] [facility] [address] [facility] [id number] [place] [address] Mar, [facility] [place] [facility] [address] [facility] [id number] [place] [address] Mar, [facility] [place] [facility] [address] [id number] [place] [address] 18 Feb, 2012 [facility] [place] [facility] [address] [id number] [place] [address] 17 Feb, 2012 [facility] [place] [facility] [address] [id number] [place] [address] 13 Feb, 2012 [facility] [place] [facility] [address] [id number] [place] [address] 15 Jan, 2012 [facility] [place] [facility] [address] [id number] [place] [address] Jan, [facility] [place] [facility] [address] [id number] [place] [address] Jan, [facility] [place] [facility] [address] [id number] [place] [address] Jan, [facility] [place] [facility] [address] [id number] [place] [address] Dec, [facility] [place] [facility] [address] [id number] [place] [address] Dec, [facility] [place] [facility] [address] [id number] [place] [address] Dec, [facility] [place] [facility] [address] [id number] [place] [address] Dec, [facility] [place] [facility] [address] [id number] [place] [address] Dec, [facility] [place] [facility] [address] [id number] [place] [address] 14 Nov, 2011 [facility] [place] [facility] [address] [id number] [place] [address] Nov, [facility] [place] [facility] [address] [id number] [place] [address] Nov, [facility] [place] [facility] [address] [id number] [place] [address] 08 Nov, 2011 [facility] [place] [facility] [address] [id number] [place] [address] October, [facility] [place] [facility] [address] [id number] [place] [address] October, [facility] [place] [facility] [address] [id number] [place] [address] October, [facility] [place] [facility] [address] [id number] [place] [address] October, [facility] [place] [facility] [address] [id number] [place] [address] October, [facility] [place] [facility] [address] [id number] [place] [address] Sep, [facility] [place] [facility] [address] [id number] [place] [address] Sep, [facility] [place] [facility] [address] [id number] [place] [address] Sep, [facility] [place] [facility] [address] [id number] [place] [address] Sep, [facility] [place] [facility] [address] [id number] [place] [address] Sep, [facility] [place] [facility] [address] [id number] [place] [address] 29 Aug, 2011 [facility] [place] [facility] [address] [id number] [place] [address] 28 Aug, 2011 [facility] [place] [facility] [address] [id number] [place] [address] 27 Aug, 2011 [facility] [place] [facility] [address] [id number] [place] [address] 26 Aug, 2011 [facility] [place] [facility] [address] [id number] [place] [address] 23 Aug, 2011 [facility] [place] [facility] [address] [id number] [place] [address] 20 Aug, 2011 [facility] [address] [id number] [place] [address] 19 Aug, 2011 [facility] [address] [id number] [place] [address] 17 Aug, 2011 [facility] [address] [id number] [place] [address] 18 Jun, 2011 [facility] [address] [id number] [place] [address] Jun, [facility] [address] [id number] [place] [address] Jun, [facility] [address] [id number] [place] [address] Jun, [facility] [address] [id number] [place] [address] Jun, [facility] [address] [id number] [place] [address] May, [facility] [address] [id number] [place] [address] Apr, [facility] [address] [id number] [place] [address] October, [facility] [address] [id number] [place] [address] May, [facility] [address] [id number] [place] [address] 24 May, 2010 [facility] [address] [id number] [place] [address] 29 Apr, 2010 [facility] [address] [id number] [place] [address] 17 Jan, 2010 [facility] [address] [id number] [place] [address] Dec, [facility] [address] [facility] [id number], [place] [address] Sep, [facility] [address] [facility] [id number], [place] [address] Sep, [facility] [address] [facility] [id number], [place] [address] Jul, [facility] [address] [facility] [id number], [place] [address] May, [facility] [address] [facility] [id number], [place] [address] Jan, IMMUNIZATIONS No Known Immunizations SOCIAL HISTORY Never Assessed REASON FOR VISIT Blood pressure check, Patient states that she is currently on Losartan and for the past few days she has had increased b/p. Last evening states at 10pm 148/90 , 12am 150/91, 3am 181/109, and now 170/98. ALBER Mari, Per VANESSA Garcia, pt will increase losartan and appt made for May 07 at 0840. PLAN OF CARE VITAL SIGNS Height 64 in 2018-05-03 Weight 236 lbs 2018-05-03 BMI 40.5 kg/m2 2018-05-03 Blood pressure systolic 170 mmHg 2018-05-03 Blood pressure diastolic 98 mmHg 2018-05-03 MEDICATIONS Medication Instructions Dosage Frequency Start Date End Date Duration Status Ibuprofen 800 MG Orally Three times a day 1 tablet 8h Active Wellbutrin XL 150 MG Orally Once a day 1 tablet in the morning 24h Active Tramadol HCl 50 MG Orally 1 tablet 3 times a day as needed 1 tablet 28 days Active Spiriva Respimat 1.25 MCG/ACT Inhalation Once a day 2 puffs 24h 16 Aug, 2016 90 days Active Albuterol Sulfate (2.5 MG/3ML) 0.083% USE ONE VIAL (3 ML) PER NEBULIZER FOUR TIMES DAILY NEEDED FOR WHEEZING OR COUGH 6 Active Losartan Potassium 25 MG 1 tablet 24h 30 Active Hydrochlorothiazide 50 mg Orally Once a day 1 tablet 24h 30 Active Omeprazole 20 mg 1 capsule 24h 30 Active Cyclobenzaprine HCl 5 MG TAKE ONE TABLET BY MOUTH TWICE DAILY 30 Active Advair Diskus 250-50 MCG/DOSE Inhalation Twice a day 1 puff 12h 26 David, 2015 90 days Active Proventil HFA 108 (90 [...]
--- OUTSIDE RECORDS SUMMARY | 2018-05-11 13:36 | XMS REPORT | Continuity of Care Document ---
Author Author [facility] Address Unknown Phone Unavailable Allergies Active Description [...] Allergy 01/12/2012 Yes No Known Drug Allergies [id number] Drug Allergy Unknown N/A 01/24/2014 Yes hydrocodone Drug Allergy N/A N/A 02/15/2014 Yes meloxicam [id number] Drug Allergy Unknown N/A 08/31/2017 Yes naproxen [id number] Drug Allergy Unknown N/A 08/31/2017 Yes celecoxib [id number] Drug Allergy Mild N/A 10/06/2017 Medications There [...] Joint Pain In The Toes 12/27/2008 ILANA STAFF EDITOR, OSWALD R 386.2 Vertigo Of Central Origin [...] T 465.9 Upper Respiratory Infection 01/30/2009 JULITA STAFF EDITOR, JENNIFER T 465.9 Upper Respiratory Infection 01/30/2009 ILANA VICTORIAN, OSWALD R 465.9 Upper Respiratory Infection 01/30/2009 JULITA VICTORIANJENNIFER T 465.9 Upper Respiratory Infection 01/30/2009 JULITA STAFF EDITOR, JENNIFER T 465.9 Upper Respiratory Infection 01/30/2009 [...] VICTORIAN, JENNIFER T 477.9 Rhinitis 02/28/2009 JULITA STAFF EDITOR, JENNIFER T 599.0 Urinary Tract Infection 02/28/2009 JULITA STAFF EDITOR, JENNIFER T 703.0 Nail Ingrown 02/28/2009 PRUITT DO, GEGE K 477.9 Rhinitis 02/28/2009 PRUITT DO, GEGE K 599.0 Urinary Tract Infection 02/28/2009 PRUITT DO, GEGE K 703.0 Nail Ingrown 02/28/2009 JULITA STAFF EDITORJENNIFER T 477.9 Rhinitis 02/28/2009 JULITA STAFF EDITOR, JENNIFER T 599.0 Urinary Tract Infection 02/28/2009 JULITA STAFF EDITOR, JENNIFER T 703.0 Nail Ingrown 02/28/2009 JULITA STAFF EDITOR, JENNIFER T 477.9 Rhinitis 02/28/2009 JULITA STAFF EDITORJENNIFER T 599.0 Urinary Tract Infection 02/28/2009 JULITA VICTORIANJENNIFER 703.0 Nail Ingrown 02/28/2009 JULITA VICTORIANJENNIFER T 477.9 Rhinitis 02/28/2009 JULITA STAFF EDITOR, JENNIFER T 599.0 Urinary Tract Infection 02/28/2009 JULITA STAFF EDITOR, JENNIFER T 703.0 Nail Ingrown 02/28/2009 ILANA STAFF EDITOR, OSWALD R 477.9 Rhinitis 02/28/2009 ILANA STAFF EDITOR, OSWALD R 599.0 Urinary Tract Infection 02/28/2009 ILANA STAFF EDITOR, OSWALD R 703.0 Nail Ingrown 02/28/2009 JULITA VICTORIANJENNIFER 477.9 Rhinitis 02/28/2009 JULITA VICTORIANJENNIFER T 599.0 Urinary Tract Infection 02/28/2009 JULITA STAFF EDITOR, JENNIFER T 703.0 Nail Ingrown 02/28/2009 JULITA STAFF EDITOR, JENNIFER T 477.9 Rhinitis 02/28/2009 JULITA STAFF EDITOR, JENNIFER T 599.0 Urinary Tract Infection 02/28/2009 [...] 461.0 ACUTE MAXILLARY SINUSITIS 05/28/2009 PRUITT DO, GEGE K 461.0 Acute [...] OSWALD R 461.0 Acute Maxillary Sinusitis 05/28/2009 JENNIFRE CANCINO APRN 461.0 Acute Maxillary Sinusitis 05/28/2009 [...] Specified As Acute Or Chronic 09/28/2009 JULITA STAFF EDITOR, JENNIFER T 786.05 Shortness Of Breath 09/28/2009 JULITA STAFF EDITOR, JENNIFER T 786.07 Wheezing 09/28/2009 JULITA STAFF EDITORJENNIFER T 786.2 Cough 09/28/2009 PRUITT DO, GEGE K 490 Bronchitis, Not Specified As Acute Or Chronic 09/28/2009 PRUITT DO, GEGE K 786.05 Shortness Of Breath 09/28/2009 PRUITT DO, GEGE K 786.07 Wheezing 09/28/2009 PRUITT DO, GEGE K 786.2 Cough 09/28/2009 JULITA STAFF EDITORJENNIFER 490 Bronchitis, Not Specified As Acute Or Chronic 09/28/2009 JULITA VICTORIANJENNIFER T 786.05 Shortness Of Breath 09/28/2009 JULITA VICTORIANJENNIFER T 786.07 Wheezing 09/28/2009 JULITA VICTORIANJENNIFER T 786.2 Cough 09/28/2009 JULITA VICTORIANJENNIFER 490 Bronchitis, Not Specified As Acute Or Chronic 09/28/2009 JULITA VICTORIANJENNIFER T 786.05 Shortness Of Breath 09/28/2009 JULITA VICTORIANJENNIFER T 786.07 Wheezing 09/28/2009 JULITA IVCTORIANJENNIFER T 786.2 Cough 09/28/2009 JULITA VICTORIANJENNIFER 490 Bronchitis, Not Specified As Acute Or Chronic 09/28/2009 JULITA VICTORIANJENNIFER T 786.05 Shortness Of Breath 09/28/2009 JULITA VICTORIANJENNIFER T 786.07 Wheezing 09/28/2009 JULITA STAFF EDITOR, JENNIFER T 786.2 Cough 09/28/2009 ILANA STAFF EDITOR, OSWALD R 490 Bronchitis, Not Specified As Acute Or Chronic 09/28/2009 ILANA STAFF EDITOR, OSWALD R 786.05 Shortness Of Breath 09/28/2009 ILANA STAFF EDITOR, OSWALD R 786.07 Wheezing 09/28/2009 ILANA STAFF EDITOR, OSWALD R 786.2 Cough 09/28/2009 JULITA VICTORIANJENNIFER [...] AND FATIGUE 02/06/2010 JENNIFER CANCINO APRN V72.31 HOISTER EXAM, ROUTINE 02/06/2010 112.9 CANDIDIASIS, OF UNSPECIFIED SITE 02/06/2010 296.90 MOOD DISORDER 02/06/2010 780.79 MALAISE AND FATIGUE 02/06/2010 V72.31 HOISTER EXAM, ROUTINE 02/06/2010 ROSALIND STEIN MD 112.9 CANDIDIASIS, OF UNSPECIFIED SITE 02/06/2010 ROSALIND STEIN MD 296.90 MOOD DISORDER 02/06/2010 ROSALIND STEIN MD 780.79 MALAISE AND FATIGUE 02/06/2010 ROSALIND STEIN MD V72.31 HOISTER EXAM, ROUTINE 02/06/2010 112.9 CANDIDIASIS, OF UNSPECIFIED SITE 02/06/2010 296.90 MOOD DISORDER 02/06/2010 780.79 MALAISE AND FATIGUE 02/06/2010 V72.31 HOISTER EXAM, ROUTINE 02/06/2010 112.9 CANDIDIASIS, OF UNSPECIFIED SITE 02/06/2010 296.90 MOOD DISORDER 02/06/2010 780.79 MALAISE AND FATIGUE 02/06/2010 V72.31 HOISTER EXAM, ROUTINE 02/06/2010 PRUITT DO GEGE K 112.9 Candidiasis, Of Unspecified Site 02/06/2010 PRUITT DO GEGE K 296.90 MOOD DISORDER 02/06/2010 PRUITT DO GEGE K 780.79 Malaise And Fatigue 02/06/2010 PRUITT DO, GEGE K V72.31 Airframe Technical Officer Exam, Routine 02/06/2010 112.9 Candidiasis, Of Unspecified Site 02/06/2010 296.90 MOOD DISORDER 02/06/2010 780.79 Malaise And Fatigue 02/06/2010 V72.31 Airframe Technical Officer Exam, Routine 02/06/2010 JENNIFER CANCINO APRN 112.9 Candidiasis, Of Unspecified Site 02/06/2010 JENNIFER CANCINO APRN 296.90 MOOD DISORDER 02/06/2010 JENNIFER CANCINO APRN 780.79 Malaise And Fatigue 02/06/2010 JENNIFER CANCINO APRN V72.31 Airframe Technical Officer Exam, Routine 02/06/2010 PRUITT DO GEGE K 112.9 Candidiasis, Of Unspecified Site 02/06/2010 PRUITT DO GEGE K 296.90 MOOD DISORDER 02/06/2010 PRUITT DO GEGE K 780.79 Malaise And Fatigue 02/06/2010 PRUITT DO GEGE K V72.31 Airframe Technical Officer Exam, Routine 02/06/2010 JENNIFER CANCINO APRN 112.9 Candidiasis, Of Unspecified Site 02/06/2010 JULITA RIVERA JENNIFER T 296.90 MOOD DISORDER 02/06/2010 JULITA STAFF EDITOR, JENNIFER T 780.79 Malaise And Fatigue 02/06/2010 JULITA STAFF EDITORJENNIFER T V72.31 Airframe Technical Officer Exam, Routine 02/06/2010 JULITA STAFF EDITOR JENNIFER T 112.9 Candidiasis, Of Unspecified Site 02/06/2010 JULITA STAFF EDITOR, JENNIFER T 296.90 MOOD DISORDER 02/06/2010 JULITA STAFF EDITORJENNIFER T 780.79 Malaise And Fatigue 02/06/2010 JULITA STAFF EDITORJENNIFER T V72.31 Airframe Technical Officer Exam, Routine 02/06/2010 JULITA STAFF EDITORJENNIFER T 112.9 Candidiasis, Of Unspecified Site 02/06/2010 JULITA STAFF EDITOR JENNIFER T 296.90 MOOD DISORDER 02/06/2010 JULITA STAFF EDITOR, JENNIFER T 780.79 Malaise And Fatigue 02/06/2010 JULITA STAFF EDITOR JENNIFER T V72.31 Airframe Technical Officer Exam, Routine 02/06/2010 ILANA STAFF EDITOR, OSWALD R 112.9 Candidiasis, Of Unspecified Site 02/06/2010 ILANA STAFF EDITOR, OSWALD R 296.90 MOOD DISORDER 02/06/2010 ILANA STAFF EDITOR, OSWALD R 780.79 Malaise And Fatigue 02/06/2010 ILANA STAFF EDITOR, OSWALD R V72.31 Airframe Technical Officer Exam, Routine 02/06/2010 JULITA VICTORIANJENNIFER T 112.9 Candidiasis, Of Unspecified Site 02/06/2010 JULITA VICTORIAN, JENNIFER T 296.90 MOOD DISORDER 02/06/2010 JULITA VICTORIAN JENNIFER T 780.79 Malaise And Fatigue 02/06/2010 JULITA VICTORIANJENNIFER T V72.31 Airframe Technical Officer Exam, Routine 02/06/2010 JULITA VICTORIANJENNIFER T 112.9 Candidiasis, Of Unspecified Site 02/06/2010 JULITA STAFF EDITOR JENNIFER T 296.90 MOOD DISORDER 02/06/2010 JULITA STAFF EDITOR, JENNIFER T 780.79 Malaise And Fatigue 02/06/2010 JULITA STAFF EDITOR JENNIFER T V72.31 Airframe Technical Officer Exam, Routine 02/06/2010 JULITA STAFF EDITOR JENNIFER T 112.9 Candidiasis, Of Unspecified Site 02/06/2010 JULITA VICTORIAN JENNIFER T 296.90 MOOD DISORDER 02/06/2010 JULITA VICTORIAN JENNIFER T 780.79 Malaise And Fatigue 02/06/2010 JULITA VICTORIAN JENNIFER T V72.31 Airframe Technical Officer Exam, Routine 02/06/2010 JENNIFER CANCINO APRN 112.9 Candidiasis, Of Unspecified Site 02/06/2010 JENNIFER CANCINO APRN 296.90 MOOD DISORDER 02/06/2010 JENNIFER CANCINO APRN 780.79 Malaise And Fatigue 02/06/2010 JENNIFER CANCINO APRN V72.31 Airframe Technical Officer Exam, Routine 05/06/2010 JENNIFER CANCINO APRN 724.2 [...] PRUITT DO 461.9 Sinusitis Acute 06/13/2011 JULITA STAFF EDITOR, JENNIFER T 461.9 Sinusitis Acute 06/13/2011 JULITA [...] JENNIFER CANCINO APRN 708.9 Urticaria/hives Unspec 10/01/2011 JENNFIER CANCINO APRN 708.9 Urticaria/hives Unspec 10/01/2011 JENNIFER [...] ABNORMAL BLEEDING FROM FEMALE GENITAL TRACT 06/09/2012 ROSALIDN STEIN MD E906.3 INJURY CAUSED BY ANIMAL [...] CANCINO APRN T V06.1 Dtap Dx 06/09/2012 JENNFIER CANCINO APRN T E906.3 Injury Caused By [...] OSWALD R 719.45 PAIN- HIP 03/19/2013 JULITA STAFF EDITOR, JENNIFER T 493.90 ASTHMA UNSPECIFIED 03/19/2013 JENNIFER [...] Tract 11/28/2013 JULITA RIVERA JENNIFER T V72.31 HOISTER EXAM, ROUTINE 11/28/2013 JENNIFER CANCINO APRN T V73.81 HPV SCREENING 11/28/2013 JULITA RIVERA, JENNIFER T V76.10 BREAST CANCER SCREENING 11/28/2013 JENNIFER CANCINO APRN T V76.2 CERVICAL CANCER SCREENING (PAP SMEAR) 11/28/2013 JENNIFER CANCINO APRN T V76.51 COLON CANCER SCREENING 11/28/2013 JENNIFER CANCINO APRN T V72.31 HOISTER EXAM, ROUTINE 11/28/2013 JENNIFER CANCINO APRN T V73.81 HPV SCREENING 11/28/2013 JENNIFER CANCINO APRN T V76.10 BREAST CANCER SCREENING 11/28/2013 JENNIFER CANCINO APRN T V76.2 CERVICAL CANCER SCREENING (PAP SMEAR) 11/28/2013 JENNIFER CANCINO APRN T V76.51 COLON CANCER SCREENING 11/28/2013 ILANA RIVERA OSWALD R V72.31 HOISTER EXAM, ROUTINE 11/28/2013 ILANA RIVERA OSWALD R V73.81 HPV SCREENING 11/28/2013 ILANA RIVERA OSWALD R V76.10 BREAST CANCER SCREENING 11/28/2013 ILANA RIVERA OSWALD R V76.2 CERVICAL CANCER SCREENING (PAP SMEAR) 11/28/2013 LIANA RIVERA OSWALD R V76.51 COLON CANCER SCREENING 11/28/2013 JENNIFER CANCINO APRN T V72.31 HOISTER EXAM, ROUTINE 11/28/2013 JENNIFER CANCINO APRN T V73.81 HPV SCREENING 11/28/2013 JENNIFER CANCINO APRN T V76.10 BREAST CANCER SCREENING 11/28/2013 JENNIFER CANCINO APRN T V76.2 CERVICAL CANCER SCREENING (PAP SMEAR) 11/28/2013 JENNIFER CANCINO APRN T V76.51 COLON CANCER SCREENING 11/28/2013 JENNIFER CANCINO APRN T V72.31 HOISTER EXAM, ROUTINE 11/28/2013 JULITA RIVERA JENNIFER T V73.81 HPV SCREENING 11/28/2013 JULITA RIVERA JENNIFER T V76.10 BREAST CANCER SCREENING 11/28/2013 JULITA RIVERA JENNIFER T V76.2 CERVICAL CANCER SCREENING (PAP SMEAR) 11/28/2013 JENNIFER CANCINO APRN T V76.51 COLON CANCER SCREENING 11/28/2013 JULITA RIVERA JENNIFER T V72.31 HOISTER EXAM, ROUTINE 11/28/2013 JENNIFER CANCINO APRN V73.81 HPV SCREENING 11/28/2013 JENNIFER CANCINO APRN V76.10 BREAST CANCER SCREENING 11/28/2013 JENNIFER CANCINO APRN V76.2 CERVICAL CANCER SCREENING (PAP SMEAR) 11/28/2013 JENNIFER CANCINO APRN V76.51 COLON CANCER SCREENING 11/28/2013 JENNIFER CANCINO APRN V72.31 HOISTER EXAM, ROUTINE 11/28/2013 JENNIFER CANCINO APRN V73.81 [...] 715.36 LOC OSTEOARTH NOS-L/LEG 02/05/2016 CHRISSY NUNEZ STAFF EDITOR Ot V76.12 OTH SCREEN MAMMO-MALIGN NEOPLASM OF VEE 02/06/2016 MANISH CONNOR CUTTER OPERATOR Ot I10 ESSENTIAL (PRIMARY) HYPERTENSION 08/28/2017 TANISHA [...] Ot R18.8 OTHER ASCITES 08/28/2017 CAMERON DO, TANISHA K Ot Z79.52 INTERMEDIATE (CURRENT) USE OF SYSTEMIC STER 08/28/2017 CAMERON DO, TANISHA K Ot Z87.59 PERSONAL HISTORY OF COMP OF PREG, CHLDBR 08/28/2017 ENRIQUESARAHCHRISSY A STAFF EDITOR Ot V76.12 OTH SCREEN MAMMO-MALIGN NEOPLASM OF VEE 08/28/2017 SHALOM CONNORWALT Navas CUTTER OPERATOR Ot I10 ESSENTIAL (PRIMARY) HYPERTENSION 08/31/2017 CAMERON [...] 08/31/2017 CAMERON DO, TANISHA K Ot Z79.52 INTERMEDIATE (CURRENT) USE OF SYSTEMIC STER 08/31/2017 CAMERON DO, TANISHA K Ot Z87.59 PERSONAL HISTORY OF COMP OF PREG, CHLDBR 08/31/2017 CAMERON DO, TANISHA K Ot R18.8 OTHER ASCITES 09/03/2017 CAMERON DO, TANISHA K Ot R18.8 OTHER ASCITES 09/06/2017 CAMERON DO, TANISHA K Ot R18.8 OTHER ASCITES 09/12/2017 CHRISSY NUNEZ STAFF EDITOR Ot V76.12 OTH SCREEN MAMMO-MALIGN NEOPLASM OF VEE 09/12/2017 GEETAMANISH CUTTER OPERATOR Ot I10 ESSENTIAL (PRIMARY) HYPERTENSION 09/14/2017 RADHA CARIAS STAFF EDITOR Ot R10.11 RIGHT UPPER QUADRANT PAIN 09/14/2017 RADHA CARIAS STAFF EDITOR Ot Z90.49 ACQUIRED ABSENCE OF OTHER SPECIFIED PART 10/07/2017 JAYESH NAM, EARL Tracey Ot E66.9 OBESITY, UNSPECIFIED 10/07/2017 EARL MCCONNELL MD Ot F32.9 MAJOR DEPRESSIVE DISORDER, [...] ADULT 10/07/2017 EARL MCCONNELL MD, Ot Z79.51 INTERMEDIATE (CURRENT) USE OF INHALED STERO 10/07/2017 EARL MCCONNELL MD, Ot Z87.19 PERSONAL HISTORY OF OTHER DISEASES OF TH 10/07/2017 EARL MCCONNELL MD, Ot Z87.59 PERSONAL HISTORY OF COMP OF PREG, CHLDBR 10/07/2017 EARL MCCONNELL MD, Ot Z88.8 ALLERGY STATUS TO OTH DRUG/MEDS/BIOL SUB 10/07/2017 CHRISSY NUNEZ STAFF EDITOR Ot V76.12 OTH SCREEN MAMMO-MALIGN NEOPLASM OF VEE 10/07/2017 MANISH CONNOR CUTTER OPERATOR Ot I10 ESSENTIAL (PRIMARY) HYPERTENSION 10/07/2017 RADHA CARIAS STAFF EDITOR Ot R10.11 RIGHT UPPER QUADRANT PAIN 10/07/2017 RADHA CARIAS STAFF EDITOR Ot Z90.49 ACQUIRED ABSENCE OF OTHER SPECIFIED PART 10/08/2017 EARL MCCONNELL MD Ot E66.9 OBESITY, UNSPECIFIED 10/08/2017 EARL MCCONNELL MD, Ot F32.9 MAJOR DEPRESSIVE DISORDER, SINGLE EPISOD 10/08/2017 EARL MCCONNELL MD Ot I10 ESSENTIAL (PRIMARY) HYPERTENSION 10/08/2017 AERL MCCONNELL MD, Ot J01.90 ACUTE SINUSITIS, UNSPECIFIED 10/08/2017 EARL MCCONNELL MD, Ot J45.909 UNSPECIFIED ASTHMA, UNCOMPLICATED 10/08/2017 EARL MCCONNELL MD, Ot K21.9 GASTRO-ESOPHAGEAL REFLUX DISEASE WITHOUT 10/08/2017 EARL MCCONNELL MD, Ot R51 HEADACHE 10/08/2017 EARL MCCONNELL MD Ot Z68.41 BODY MASS INDEX (BMI) 40.0-44.9, ADULT 10/08/2017 EARL MCCONNELL MD Ot Z79.51 COMMUNITY OUTREACH MANAGER (CURRENT) USE OF INHALED STERO 10/08/2017 EARL [...] ADULT 10/12/2017 EARL MCCONNELL MD Ot Z79.51 INTERMEDIATE (CURRENT) USE OF INHALED STERO 10/12/2017 EARL MCCONNELL MD Ot Z87.19 PERSONAL HISTORY OF OTHER DISEASES OF TH 10/12/2017 EARL MCCONNELL MD, Ot Z87.59 PERSONAL HISTORY OF COMP OF PREG, CHLDBR 10/12/2017 EARL MCCONNELL MD Ot Z88.8 ALLERGY STATUS TO OTH DRUG/MEDS/BIOL SUB Procedures Code Description [place] [address] ROUTINE VENIPUNCTURE 05/05/2012 45142 TSH 05/05/2012 10941 URIC ACID 05/05/2012 55415 ASO 05/05/2012 28883 CRP 05/05/2012 28910 RA FACTOR 05/05/2012 ANAANA MANUELITO ANALYZER (SCREEN) 05/05/2012 58942 ESR/SED RATE 05/05/2012 19252 LIPID PANEL 05/05/2012 52713 H PYLORI (IN-HOUSE) 08/18/2012 05990 XRAY FOOT RIGHT 2 VIEWS 11/17/2013 69004 ROUTINE VENIPUNCTURE 11/28/2013 91059 TSH 11/28/2013 51777 PAP SMEAR 11/28/2013 Podiatry Jacey Gaines 11/28/2013 Q0091 PAP SMEAR OBTAIN SMEAR 11/28/2013 31639 HEMOCCULT 11/28/2013 53674 CBC 11/28/2013 1708804 GFR CALC (RESULT ONLY) 11/28/2013 70209 CMP 11/28/2013 74591 LIPID PANEL 11/28/2013 47131 MAMMOGRAM, SCREENING 11/30/2013 90106 OXIMETRY 04/28/2014 Results Test Result Range A1C [...] 14:20 Bacteria identification in wound by culture [id number] NR FREE TEXT EXTERNAL SENSITIVITY REPORTED AT [...] ng/mL <100 medMATCH Desmethyltram INCONSISTENT NRG Tramadol 22037 ng/mL <100 medMATCH Tramadol INCONSISTENT NRG CMP - 05/05/18 08:56 GLUCOSE 114 mg/dL 65-99 UREA NITROGEN (BUN) 11 mg/dL 7-25 CREATININE 0.92 mg/dL 0.50-1.05 eGFR NON-AFR. MARTINIQUAIS 69 mL/min/1.73m2 > OR=60 eGFR 80 mL/min/1.73m2 > OR=60 BUN/CREATININE RATIO NOT APPLICABLE (calc) 6-22 SODIUM 140 mmol/L 135-146 POTASSIUM 4.2 mmol/L 3.5-5.3 CHLORIDE 103 mmol/L 98-110 CARBON DIOXIDE 28 mmol/L 20-32 CALCIUM 9.6 mg/dL 8.6-10.4 PROTEIN, TOTAL 6.9 g/dL 6.1-8.1 ALBUMIN 3.8 g/dL 3.6-5.1 GLOBULIN 3.1 g/dL (calc) 1.9-3.7 ALBUMIN/GLOBULIN RATIO 1.2 (calc) 1.0-2.5 BILIRUBIN, TOTAL 0.3 mg/dL 0.2-1.2 ALKALINE PHOSPHATASE 114 U/L 33-130 AST 22 U/L 10-35 ALT 15 U/L 6-29 CBC - 05/05/18 08:56 WHITE BLOOD CELL COUNT 8.0 Thousand/uL 3.8-10.8 RED BLOOD CELL COUNT 4.41 Million/uL 3.80-5.10 HEMOGLOBIN 13.0 g/dL 11.7-15.5 HEMATOCRIT 38.1 % 35.0-45.0 MCV 86.4 fL 80.0-100.0 MCH 29.5 pg 27.0-33.0 MCHC 34.1 g/dL 32.0-36.0 RDW 13.2 % 11.0-15.0 PLATELET COUNT 423 Thousand/uL 140-400 MPV 9.9 fL 7.5-12.5 ABSOLUTE NEUTROPHILS 5192 cells/uL 0566-5869 ABSOLUTE LYMPHOCYTES 1912 cells/uL 850-3900 ABSOLUTE MONOCYTES 648 cells/uL 200-950 ABSOLUTE EOSINOPHILS 208 cells/uL 15-500 ABSOLUTE BASOPHILS 40 cells/uL 0-200 NEUTROPHILS 64.9 % NRG LYMPHOCYTES 23.9 % NRG MONOCYTES 8.1 % NRG EOSINOPHILS 2.6 % NRG BASOPHILS 0.5 % NRG Encounters ACCT No. Visit Date/Time Discharge Status Pt. Type Provider Facility Loc./Unit Complaint [id number] 09/27/2014 10:52:00 09/27/2014 23:59:59 [facility] Outpatient JENNIFER CANCINO APRN [id number] 08/30/2014 10:25:00 08/30/2014 23:59:59 [facility] Outpatient JENNIFER CANCINO APRN [id number] 05/31/2014 11:19:00 05/31/2014 23:59:59 [facility] Outpatient JENNIFER CANCINO APRN [id number] 04/28/2014 11:30:00 04/28/2014 23:59:59 [facility] Outpatient JENNIFER CANCINO APRN [id number] 02/15/2014 10:44:00 02/15/2014 23:59:59 [facility] Outpatient OSWALD PRECIADO APRN [id number] 01/13/2014 12:24:00 01/13/2014 23:59:59 [facility] Outpatient JENNIFER CANCINO APRN [id number] 11/28/2013 09:54:00 11/28/2013 23:59:59 [facility] Outpatient JENNIFER CANCINO APRN [id number] 11/16/2013 14:58:00 11/16/2013 23:59:59 [facility] Outpatient JENNIFER CANCINO APRN [id number] 10/06/2013 15:34:00 10/06/2013 23:59:59 CLS Outpatient GEGE PRUITT DO [id number] 03/19/2013 09:57:00 03/19/2013 23:59:59 [facility] Outpatient JENNIFER CANCINO APRN [id number] 09/06/2012 10:39:00 09/06/2012 23:59:59 CLS Outpatient GEGE PRUITT DO [id number] 09/02/2012 13:25:00 09/02/2012 23:59:59 [facility] Outpatient [id number] 08/18/2012 13:24:00 08/18/2012 23:59:59 CLS Outpatient [id number] 06/09/2012 11:05:00 06/09/2012 23:59:59 CLS Outpatient ROSALIND STEIN MD [id number] 05/26/2012 11:55:00 05/26/2012 23:59:59 CLS Outpatient [id number] 02/24/2012 09:37:00 02/24/2012 23:59:59 [facility] Outpatient JENNIFER CANCINO APRN [id number] 12/01/2012 11:51:00 Document Registration [id number] 05/03/2018 08:00:00 05/03/2018 23:59:59 [facility] Outpatient JENNIFER CANCINO APRN [facility] [id number] 05/05/2018 08:20:00 Document Registration [id number] 02/12/2018 08:40:00 Document Registration [id number] 08/28/2017 08:00:00 Document Registration [id number] 08/17/2017 18:00:00 Document Registration [id number] 10/06/2017 22:35:00 10/07/2017 01:35:00 DIS Emergency EARL MCCONNELL MD [facility] ER HEADACHE,NECK STIFFNESS [id number] 09/11/2017 14:23:00 09/11/2017 23:59:59 CLS Outpatient RADHA CARIAS APRN [facility] RAD R10.11 RUQ ABD PAIN [id number] 08/31/2017 11:54:00 08/31/2017 15:35:00 DIS Outpatient TANISHA BARNES DO [facility] RAD FLUID COLLECTION [id number] 08/28/2017 10:10:00 08/28/2017 14:38:00 DIS Emergency TANISHA BARNES DO [facility] ER CARDIAC ISSUES [id number] 02/05/2016 12:55:00 02/05/2016 23:59:59 CLS Outpatient MANISH CONNOR [facility] CARD ESSENTIAL HYPERTENSION [id number] 01/24/2014 06:25:00 01/25/2014 17:22:00 DIS Outpatient ROSALIND STEIN MD [facility] SDC ABD PAIN-KNOWN CHOLELITHIASIS [id number] 01/09/2014 13:42:00 01/09/2014 16:03:00 DIS Emergency JENNIFER KAUR DO [facility] ER ABD PAIN [id number] 12/12/2013 14:27:00 12/12/2013 23:59:59 CLS Outpatient CHRISSY NUNEZ APRN [facility] RAD SCREENING [id number] 01/31/2016 13:01:00 Document Registration [id number] 12/31/2011 08:47:00 Document Registration [id number] 10/09/2011 09:42:00 Document Registration
[2018-05-11 13:39] VITALS: BP 120/75
== END 2018-05-11 13:39 | disposition home or self-care (01) ==
LOC: EDUNIT# 13:11 → ER 13:12
DX: S01.01XD Laceration without foreign body of scalp, subsequent encounter (principal); X58.XXXD Exposure to other specified factors, subsequent encounter

== ENCOUNTER → 2018-09-28 | Outpatient (CLI) | payer SELFPAY | LOC: CARD 10:17 | PROVIDERS: ATTEND Nurse Practitioner Community Health | DX: R60.0 Localized edema (principal); R53.82 Chronic fatigue, unspecified; R06.02 Shortness of breath; Z82.49 Family history of ischemic heart disease and other diseases of the circulatory system | CPT/HCPCS: 93306 ==

== ENCOUNTER 2019-12-16 15:56 | Emergency (ER) | payer SELFPAY ==
[~2019-12-16] VITALS: Ht 162 cm; Wt 98.0 kg
[~2019-12-16 15:56] MED LIST changes: -OMEP20CA12 PO; +OMEP20CA18 PO
[2019-12-16 16:03] VITALS: BP 133/76
[2019-12-16] MEDS ORDERED: predniSONE 20 MG TAB PO ONE (16:15)
--- NOTE | 2019-12-16 16:15 | ED Cough/URI ---
General Chief Complaint: Respiratory Problems Stated Complaint: SOB Source: patient Exam Limitations: no limitations History of Present Illness Date Seen by Provider: Dec 16, 2019 Time Seen by Provider: 16:01 Initial Comments Here with increasing shortness of breath over the last 2-3 days. Patient does have history of asthma. She has had sore throat as well as cough that is mild. 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 This is reasonable. Denies fever, body aches or other symptoms currently. States that it is now waking her up at night with a stitch in her side which is typical when her asthma flares. Timing/Duration: getting worse, other (2-3 days) Prior Episodes/Possible Cause: occasional episodes Modifying Factors: Improves With Albuterol Nebulizer Associated Symptoms: shortness of breath, sore throat, wheezing Allergies and Home Medications Allergies Coded Allergies: celecoxib (Verified Allergy, Mild, 10/06/17) meloxicam (Unverified Adverse Reaction, Unknown, 08/31/17) naproxen (Unverified Adverse Reaction, Unknown, 08/31/17) Home Medications Albuterol 17 Gm Inh, 2 PUFF IH Q4 -6H PRN for COUGH OR WHEEZE, (Reported) Amoxicillin 500 Mg Capsule, 1,000 MG PO TID Prescribed by: EARL MCCONNELL on 10/07/17 0128 Bupropion Hcl 150 Mg Tablet, 150 MG PO DAILY, (Reported) Cyclobenzaprine Hcl 5 Mg Tablet, 5 MG PO TID PRN for TREMORS, (Reported) NEEDED FOR TREMORS Fluticasone/Salmeterol 1 Disk Inhp, 1 PUFF IH BID, (Reported) Hydrochlorothiazide 25 Mg Tablet, 25 MG PO DAILY, (Reported) Ibuprofen 800 Mg Tablet, 800 MG PO TID PRN for PAIN, (Reported) Losartan Potassium 25 Mg Tablet, 25 MG PO DAILY, (Reported) Multivitamin 1 Each Tablet, 1 TAB PO DAILY, (Reported) Omeprazole 20 Mg Capsule.dr, 20 MG PO DAILY, (Reported) Paroxetine Hcl 20 Mg Tablet, 40 MG PO HS, (Reported) Prednisone 20 Mg Tab, 40 MG PO DAILY Prescribed by: EARL MCCONNELL on 12/16/19 1620 Pyridoxine/Melatonin 1 Tab Tablet, 3 MG PO HS, (Reported) Terbinafine Hcl 250 Mg Tablet, 250 MG PO DAILY, (Reported) Tramadol Hcl 50 Mg Tablet, 50 MG PO Q6H PRN for PAIN, (Reported) Patient Home Medication List Home Medication List Reviewed: Yes Review of Systems Review of Systems Constitutional: see HPI; No chills, No fever EENTM: nose congestion, throat pain Respiratory: cough, short of breath, wheezing Cardiovascular: No edema; other (Chest tightness with breathing) Gastrointestinal: No abdominal pain, No nausea, No vomiting Genitourinary: no symptoms reported Musculoskeletal: no symptoms reported Skin: no symptoms reported Past Anwttwt-Ezscgl-Wrtaby Hx Past Med/Social Hx: Reviewed Nursing Past Med/Soc Hx Patient Social History Alcohol Use: Denies Use Recreational Drug Use: No Smoking Status: Never a Smoker 2nd Hand Smoke Exposure: No Recent Hopitalizations: No Immunizations Up To Date Tetanus Booster (TDap): Unknown Seasonal Allergies Seasonal Allergies: No Past Medical History Surgeries: Yes ( X 1) Section, Gallbladder Respiratory: Yes ("RESTRICTIVE LUNG DISEASE" PER PT) Asthma Cardiac: Yes Hypertension Neurological: No Reproductive Disorders: No Gastrointestinal: Yes Gastroesophageal Reflux, Gall Bladder Disease Musculoskeletal: Yes (KNEE PAIN) Endocrine: Yes (OBESITY) HEENT: No Cancer: No Psychosocial: Yes Depression Integumentary: No Blood Disorders: No Family Medical History Reviewed Nursing Family Hx No Pertinent Family Hx Physical Exam Vital Signs - First Documented 12/16/19 16:03 Temp 36.9 Pulse 64 Resp 22 B/P (MAP) 133/76 (95) Pulse Ox 95 O2 Delivery Room Air Capillary Refill : Height: 5'4.00" Weight: 232lbs. oz. 105.632529bs; 35.15 BMI Method:Stated General Appearance: WD/WN, no apparent distress HEENT: PERRL/EOMI, TMs normal, pharynx normal Neck: full range of motion, supple Respiratory: lungs clear, normal breath sounds Cardiovascular: regular rate, rhythm, no murmur Gastrointestinal: non tender, soft Neurologic/Psychiatric: alert, oriented x 3 Progress/Results/Core Measures Suspected Sepsis SIRS Temperature: Pulse: Respiratory Rate: Blood Pressure / Mean: Results/Orders Lab Results Laboratory Tests Test 12/16/19 16:15 Range/Units My Orders Orders - EARL MCCONNELL MD Chest 1 View, Ap/Pa Only (12/16/19 16:10) Prednisone Tablet (Deltasone Tablet) (12/16/19 16:15) Coronavirus Sars-Cov-2 So 2019 (12/16/19 16:15) Medications Given in ED Current Medications Medications Dose Ordered Sig/Sita Route Start Time Stop Time Status Last Admin Dose Admin Prednisone 40 mg ONCE ONCE PO 12/16/19 16:15 12/16/19 16:16 DC 12/16/19 16:27 40 MG Vital Signs/I&O 12/16/19 16:03 Temp 36.9 Pulse 64 Resp 22 B/P (MAP) 133/76 (95) Pulse Ox 95 O2 Delivery Room Air Capillary Refill : Progress Note : Progress Note Seen and evaluated. Given patient's history of workplace environment, we will go ahead and get COVID-19 testing. Prednisone 40 mg by mouth. Chest x-ray ordered. Patient will get a refill prescription of albuterol at the appropriate care clinic and this was verified. We will continue outpatient therapy with pred nisone over the next 4 days. Patient understands that she cannot go back to work until cleared with negative tests since this is more likely asthma. Patient agreed. Discharged home with return precautions. Patient verbalize understanding instructions and agreement with plan. Diagnostic Imaging Diagonstic Imaging: Xray Plain Films/CT/US/NM/MRI: chest Comments NAME: RAYMOND WIGGINS [facility] REC#: [id number] PT STATUS: REG ER : 1960 PHYSICIAN: EARL MCCONNELL MD ADMIT DATE: 12/16/19/ER Signed Date of Exam:12/16/19 CHEST 1 VIEW, AP/PA ONLY INDICATION: Shortness of breath. TECHNIQUE: Frontal chest obtained at 04:38 p.m. COMPARISON: Comparison made to 10/07/2017. FINDINGS: Heart is borderline enlarged. Mediastinal silhouette is unremarkable. The lungs are clear. There is no pneumothorax or pleural fluid. IMPRESSION: No acute process in the chest. Borderline cardiomegaly. Dictated by: Dictated on workstation # [id number] Dict: 12/16/19 1640 Trans: 12/16/19 1644 [id number] Interpreted by: ALBA MEDRANO MD Electronically signed by: ALBA MEDRANO MD 12/16/19 1644 Reviewed: Reviewed by Me Departure Impression Primary Impression: Asthma attack Qualified Codes: J45.21 - Mild intermittent asthma with (acute) exacerbation Additional Impression: covid 19 evaluation Disposition: 01 HOME, SELF-CARE Condition: Improved Departure-Patient Inst. Decision time for Depature: 16:17 Referrals: [facility] (PCP/Family) Primary Care Physician Patient Instructions: Asthma, Adult (DC), Coronavirus Disease 2019 (COVID-19) (DC) Add. Discharge Instructions: All discharge instructions reviewed with patient and/or family. Voiced understanding. Take medications as directed. You will need to remain isolated until testing resulted. This is more likely asthma exacerbation but given your workplace environment, testing is indicated. Those results should come back within the next 4 days and you will be called. Do not go to work and remain isolated until results are noted. You may call your doctor next week for follow-up appointment for recheck and further evaluation as needed. Use albuterol nebulizers every 4 hours as needed. Return for increasing breathing problems, fever, weakness, vomiting, chest pain or other concerns as needed. Continue home medicines as previously prescribed. Scripts Prednisone (Prednisone) 20 Mg Tab 40 MG PO DAILY, #8 TAB 0 Refills Prov: EARL MCCONNELL MD 12/16/19 EARL MCCONNELL MD Dec 16, 2019 16:15
[2019-12-16] MEDS ORDERED: PRD20T PO (16:20)
--- NOTE | 2019-12-16 16:24 | NUR ---
COVID SWAB 1610
--- NOTE | 2019-12-16 16:43 | Diagnostic Imaging Report ---
INDICATION: Shortness of breath. TECHNIQUE: Frontal chest obtained at 04:38 p.m. COMPARISON: Comparison made to 10/07/2017. FINDINGS: Heart is borderline enlarged. Mediastinal silhouette is unremarkable. The lungs are clear. There is no pneumothorax or pleural fluid. IMPRESSION: No acute process in the chest. Borderline cardiomegaly. Dictated by: Dictated on workstation # [id number]
== END 2019-12-16 16:38 | disposition home or self-care (01) ==
LOC: EDUNIT# 15:56 → ER 15:58
DX: J45.901 Unspecified asthma with (acute) exacerbation (principal); I10 Essential (primary) hypertension; K21.9 Gastro-esophageal reflux disease without esophagitis; E66.9 Obesity, unspecified; F32.9 Major depressive disorder, single episode, unspecified; Z68.35 Body mass index [BMI] 35.0-35.9, adult; Z88.6 Allergy status to analgesic agent; Z88.8 Allergy status to other drugs, medicaments and biological substances; Z20.828 Contact with and (suspected) exposure to other viral communicable diseases
CPT/HCPCS: 71045; 99282; U0002; 87635

== ENCOUNTER → 2020-02-07 | Outpatient (CLI) | payer SELFPAY ==
[~2020-02-07] MED LIST changes: +CATHETER FLUSH 10 ML SYR IV PRN; +HOLD METFORMIN - RECEIVED CONTRAST 20 ML VIAL IV SCH; +IOHEXOL 350 MG/ML 100 ML (OMNIPAQUE 350) VIAL IV ONE; +NS 100 ML (IVPB) BAG IV ONE; +PRD20T PO
--- NOTE | 2020-02-07 13:26 | Diagnostic Imaging Report ---
PROCEDURE: CT abdomen and pelvis with contrast. TECHNIQUE: Multiple contiguous axial images were obtained through the abdomen and pelvis after administration of intravenous contrast. Auto Exposure Controls were utilized during the CT exam to meet ALARA standards for radiation dose reduction. INDICATION: Right flank pain. Comparison made with prior examination 08/28/2017. FINDINGS: Heart size is normal. The lung bases are clear. The liver is normal in size without focal lesions. There is no biliary duct dilatation. Gallbladder is surgically absent. Lateral to the right lobe of liver, there is a multiloculated fluid collection. This measures roughly 13 cm AP by 3.2 cm transverse. This extends into the chest wall along the inferior right rib cage where there is a 2nd loculation measuring approximately 6.5 x 4.5 cm. Spleen is normal. Pancreas and adrenal glands are unremarkable. Kidneys are normal in appearance. Aorta is nonaneurysmal. Bowel gas pattern is nonspecific. There is no free air. There is no ascites. Uterus is normal. Bladder is normal. There is no pelvic mass or adenopathy. There are mild degenerative changes in the spine. There are bilateral fat-containing inguinal hernias. IMPRESSION: Note is again made of a multiloculated fluid collection along the lateral aspect right lobe of liver extending into the chest and abdominal wall. This remains most suspect for infectious process like abscess although necrotic soft tissue tumor certainly cannot be excluded. Bilateral fat-containing inguinal hernias. Dictated by: Dictated on workstation # [id number]
== END ==
LOC: RAD 11:23
PROVIDERS: ATTEND Nurse Practitioner Community Health
DX: K76.89 Other specified diseases of liver (principal); R18.8 Other ascites
CPT/HCPCS: 74177

== ENCOUNTER 2020-02-29 05:32 | Outpatient (CLI) | payer OTHER ==
[~2020-02-29] VITALS: Ht 162.5 cm; Wt 92.7 kg
[~2020-02-29 05:32] MED LIST changes: -CATHETER FLUSH 10 ML SYR IV PRN; -HOLD METFORMIN - RECEIVED CONTRAST 20 ML VIAL IV SCH; -IOHEXOL 350 MG/ML 100 ML (OMNIPAQUE 350) VIAL IV ONE; -NS 100 ML (IVPB) BAG IV ONE
[2020-02-29] MEDS ORDERED: HYDR25TA4 PO (09:38)
[2020-02-29] MEDS ORDERED: FLUT1DIS26 IH (09:38)
[2020-02-29] MEDS ORDERED: PARO40TA3 PO (09:38)
[2020-02-29] MEDS ORDERED: MULT-1136 PO (09:38)
[2020-02-29] MEDS ORDERED: DICL75TA2 PO (09:43)
[2020-02-29] MEDS ORDERED: LEVO50TA6 PO (09:43)
[2020-02-29] MEDS ORDERED: TIOT4MIS5 IH (09:43)
[2020-03-02] MEDS ORDERED: ACHD5005 PO (11:29)
== END 2020-02-29 09:44 ==
LOC: PREOP 05:32
PROVIDERS: ATTEND Surgery
DX: Z01.818 Encounter for other preprocedural examination (principal)

== ENCOUNTER 2020-03-01 08:20 | Inpatient (IN) | payer OTHER ==
[~2020-03-01] VITALS: Ht 162.5 cm; Wt 92.7 kg
[2020-03-01] VITALS (11 sets, daily range): BP systolic 106–151; BP diastolic 63–90
[~2020-03-01 08:20] MED LIST changes: +DICL75TA2 PO; +LEVO50TA6 PO; +MULT-1136 PO; +PARO40TA3 PO; +TIOT4MIS5 IH
--- NOTE | 2020-03-01 08:57 | Progress Note-Pre Operative ---
Pre-Operative Progress Note H&P Reviewed The H&P was reviewed, patient examined and no changes noted. Time Seen by Provider: 08:54 Date H&P Reviewed: Mar 01, 2020 Time H&P Reviewed: 08:54 Pre-Operative Diagnosis: Intra-abdominal abscess KENNETH DUKES DO Mar 01, 2020 08:57
[2020-03-01] MEDS ORDERED: LACTATED RINGERS 1,000 ML IV PRN (08:58)
[2020-03-01] MEDS ORDERED: ceFAZolin 2 GM IV Premixed 50 ML IV ONE (09:00)
[2020-03-01 09:14] LABS: BASOPHILS % (AUTO) 0 % (0-10); EOSINOPHILS # (AUTO) 0.5 10^3/uL (0.0-0.3); EOSINOPHILS % (AUTO) 6 % (0-10); HEMATOCRIT 33 % (35-52); HEMOGLOBIN 10.6 g/dL (11.5-16.0); LYMPHOCYTES # (AUTO) 2.2 10^3/uL (1.0-4.0); LYMPHOCYTES % (AUTO) 24 % (12-44); MEAN CORPUSCULAR HEMOGLOBIN 29 pg (25-34); MEAN CORPUSCULAR HGB CONC 32 g/dL (32-36); MEAN CORPUSCULAR VOLUME 90 fL (80-99); MEAN PLATELET VOLUME 9.2 fL (9.0-12.2); MONOCYTES # (AUTO) 0.9 10^3/uL (0.0-1.0); MONOCYTES % (AUTO) 10 % (0-12); NEUTROPHILS # (AUTO) 5.4 10^3/uL (1.8-7.8); NEUTROPHILS % (AUTO) 59 % (42-75); PLATELET COUNT 465 10^3/uL (130-400); WHITE BLOOD COUNT 9.1 10^3/uL (4.3-11.0)
[2020-03-01] MEDS ORDERED: proPOfol 200 MG/20 ML (DIPRIVAN) VIAL IV ONE (09:42)
[2020-03-01] MEDS ORDERED: LIDOCAINE PF 2% 5 ML (XYLOCAINE) VIAL ONE (09:42)
[2020-03-01] MEDS ORDERED: SEVOFLURANE (ULTANE) 15 ML INHAL SOLN ONE ×7 (09:42→12:28)
[2020-03-01] MEDS ORDERED: fentaNYL INJECTION 100 MCG/2 ML AMP ONE ×2 (09:42→11:05)
[2020-03-01] MEDS ORDERED: MIDAZOLAM 2 MG/2 ML (VERSED) VIAL ONE (09:43)
[2020-03-01] MEDS ORDERED: ROCURONIUM 10 MG/ML 5 ML SYRINGE IV ONE ×2 (09:45→11:53)
[2020-03-01] MEDS ORDERED: BUP/EPI 0.25% 1:200,000 (MARCAINE) 30 ML VIAL ONE (10:06)
[2020-03-01] MEDS ORDERED: meTOprolol 5 MG/5 ML (LOPRESSOR) VIAL ONE (11:19)
[2020-03-01] MEDS: LACTATED RINGERS 1,000 ML IV SCH ×2 (11:20→14:44)
[2020-03-01] MEDS ORDERED: LABETALOL HCL 20 MG/4 ML VIAL ONE (11:41)
[2020-03-01] MEDS ORDERED: NEOSTIGMINE 3 MG/3 ML VIAL ONE (11:42)
[2020-03-01] MEDS ORDERED: GLYCOPYRROLATE 0.2 MG/ML (ROBINUL) 2 ML VIAL ONE (11:42)
[2020-03-01] MEDS ORDERED: ONDANSETRON 4 MG/2 ML (SDV) Z0FRAN ONE (11:58)
--- NOTE | 2020-03-01 12:04 | Progress Note-Post Operative ---
Post-Operative Progess Note Surgeon (s)/Animal Damage Control Agent (s) Surgeon KENNETH DUKES DO Animal Damage Control Agent: Fernanda Pre-Operative Diagnosis Intra-abdominal abscess Post-Operative Diagnosis Retroperitoneal abscess Procedure & Operative Findings Date of Procedure 03/01/20 Procedure Performed/Findings Diagnostic Laparoscopy with laparoscopic drainage of retroperitoneal abscess Anesthesia Type GET Estimated Blood Loss Estimated blood loss (mL): less than 20ml Specimens/Packing Specimens Removed abscess fluid necrotic tissue portion of abscess cavity KENNETH DUKES DO Mar 01, 2020 12:04
[2020-03-01] MEDS ORDERED: ONDANSETRON 4 MG/2 ML (SDV) Z0FRAN IVP PRN (12:15)
[2020-03-01] MEDS ORDERED: MEPERIDINE (DEMEROL) INJ 50 MG/ML IVP ONE (12:30)
[2020-03-01] MEDS ORDERED: morphine INJ 10 MG/ML 1ML (SYR OR VIAL) IVP ONE (12:30)
[2020-03-01] MEDS ORDERED: morphine INJ 10 MG/ML 1ML (SYR OR VIAL) ONE (12:33)
[2020-03-01] MEDS ORDERED: MEPERIDINE (DEMEROL) INJ 50 MG/ML ONE (12:50)
--- NOTE | 2020-03-01 13:25 | NUR ---
RECEIVED FROM SURGERY, REPORT FROM RUTH RN, SCD'S ON, IV SITE LEFT AC WITHOUT REDNESS OR SWELLING, DRESSING DRY AND INTACT, 3 LAP SITES, 2 J P DRAINS WITH BLOODY DRAINAGE, O2 ON PER NC AT 3 LITERS, NO C/O NAUSEA OR PAIN AT THIS TIME, CALL LIGHT WITHIN REACH.
[2020-03-01] MEDS: ACETAMINOPHEN 500 MG TAB (TYLENOL) PO SCH ×2 (14:43→20:55)
[2020-03-01] MEDS: KETOROLAC 30 MG/ML VIAL IVP SCH ×2 (17:22→23:22)
[2020-03-01] MEDS: ceFAZolin 2 GM IV Premixed 50 ML IV SCH (19:01)
--- NOTE | 2020-03-01 21:10 | NUR ---
DR. DUKES NOTIFIED OF UNCONTROLLED PAIN RATED AT AN 8. NEW ORDER RECEIVED FOR LORTAB 5/325 1 TABLET Q 6 HOURS PRN SEVERE PAIN.
[2020-03-01] MEDS: HYDROcodone/APAP 5 MG/325 MG (LORTAB) TAB PO PRN (21:36)
[2020-03-02 00:05] VITALS: BP 120/64
[2020-03-02] MEDS: LACTATED RINGERS 1,000 ML IV SCH ×2 (00:05→09:51)
[2020-03-02] MEDS: ceFAZolin 2 GM IV Premixed 50 ML IV SCH (01:37)
--- NOTE | 2020-03-02 02:11 | OPERATIVE REPORT ---
DATE OF SERVICE: 03/01/2020 PREOPERATIVE DIAGNOSIS: Intraabdominal abscess with retroperitoneal extension. POSTOPERATIVE DIAGNOSIS: Retroperitoneal abscess. PROCEDURE: Diagnostic laparoscopy with laparoscopic drainage of retroperitoneal abscess. SURGEON: Tavo Prakash DO LUMBER GRADER: John Michael DO ANESTHESIA: General endotracheal tube. SPECIMEN: Fluid culture, portion of necrotic tissue and portion of abscess cavity. BLOOD LOSS: Approximately 50 mL. FLUIDS: Per anesthesia. POSTOPERATIVE CONDITION: Stable. INDICATION FOR PROCEDURE: The patient is a 59-year-old female who has large abscess seen on CAT scan, had actually been there 3 years ago and they drained it and it had at least come back, starting to cause her more pain and possibly increase in size on the CAT scan looked like it was definitely more into the retroperitoneum. FINDINGS: The patient had an abscess that we thought was intraperitoneal, but it was actually all retroperitoneal able to get into it, drained it, washed it out and sent tissue and culture for pathology. PROCEDURE NOTE: After informed consent was obtained, the patient was brought to the operating room. She was placed on table in the left lateral decubitus position and the table was then broken slightly to the increased flex, then she was sterilely prepped and draped in normal fashion. Local lidocaine was used to infiltrate the skin just in the subcostal region. I made an incision with #11 blade, carried down through the skin into subcutaneous tissue, deepened down to subcutaneous tissue with Bovie electrocautery down to the fascia. Fascia incised with electrocautery. We went through the posterior fascia and then bluntly entered the abdomen, placed 11 mm trocar port under direct visualization. Created pneumoperitoneum, could see adhesions. Placed another port along the midclavicular line, going down along the abdominal wall, actually placed two 5 mm ports under direct visualization using local lidocaine, 11 blade for stab incision and the VersaStep system, all done under direct visualization. She had some adhesions. These were taken down, so we could see the liver, looked and really did not find any intraabdominal abscess. There was some omentum stuck up to the abdominal wall, started dissecting behind the liver, did not find anything and then dissected and what looked like there was a very firm area right along the abdominal wall, but it was not open into the abdomen carefully started going through this and actually got in and this was abscess cavity, suctioned some of this out and then sucked out some of the fluid and sent this to pathology, then opened this further with the Bovie electrocautery and then able to get in here more dissected with some blunt dissection as well as then copiously irrigated about 4 liters of normal saline, suctioned all this out, looked like they went up superiorly and inferiorly. Unsure if we get into the retroperitoneal area, but at this point, I removed some necrotic tissue sent this to pathology and then get a portion of the abscess cavity to be sent for pathology. We then placed two 19-Icelandic Shamar drains, one into the actual cavity itself and then one along the right pericolic gutter, sutured in place with 2-0 nylon. These were just brought out through the two 5 mm holes. At this point, then removed the large left upper quadrant at the 11 mm port and then closed the fascia with 0 Vicryl [id number] suture. Copiously irrigated incisions with normal saline and then closed the incision with a 4-0 undyed Monocryl interrupted subcuticular stitches. Area was cleaned and dried and Dermabond placed here. Drain sponge was placed around the two 19-Icelandic Shamar drains and they hooked up to bulb suction. The patient tolerated the procedure. Sponge, instrument and needle count correct at the end of the case. Dr. Michael assisted in this case helping to make incisions, close incisions, identify anatomy and hold anatomy out of the way. The patient was then transferred to recovery room in stable condition. Job ID: [id number] DocumentID: [id number] Dictated Date: 03/01/2020 16:03:17 Wireless Cellular Technician Date: 03/02/2020 02:10:34 Dictated By: DO TODD DE LEON
[2020-03-02 03:59] VITALS: BP 120/70
[2020-03-02] MEDS: KETOROLAC 30 MG/ML VIAL IVP SCH ×2 (04:55→10:23)
[2020-03-02] MEDS: ACETAMINOPHEN 500 MG TAB (TYLENOL) PO SCH (05:41)
[2020-03-02 08:00] VITALS: BP 118/70
[2020-03-02] MEDS ORDERED: ENOXAPARIN 40 MG/0.4 ML (LOVENOX) SYR SC SCH (08:00)
[2020-03-02] MEDS: HYDROcodone/APAP 5 MG/325 MG (LORTAB) TAB PO PRN (08:59)
[2020-03-02] MEDS ORDERED: PANTOPRAZOLE 40 MG (PROTONIX) VIAL IVP SCH (09:00)
--- NOTE | 2020-03-02 11:28 | Progress Note - Surgery ---
Subjective Time Seen by a Provider: 11:21 Subjective/Events-last exam Pt seen and examined, doing great and would like to go home. Review of Systems Pulmonary: No Dyspnea, No Cough Cardiovascular: No: Chest Pain, Palpitations Gastrointestinal: Abdominal Pain; No: Nausea, Vomiting Objective Exam Vital Signs Date Time Temp Pulse Resp B/P (MAP) Pulse Ox O2 Delivery O2 Flow Rate FiO2 03/02/20 08:00 36.8 64 18 118/70 (86) 93 Room Air 03/02/20 08:00 Nasal Cannula 3.00 03/02/20 03:59 36.4 74 16 120/70 (87) 99 Nasal Cannula 2.00 03/02/20 00:05 36.6 63 16 120/64 (82) 97 Nasal Cannula 2.00 03/01/20 20:00 36.5 67 18 111/63 (79) 93 Room Air 03/01/20 19:25 Nasal Cannula 3.00 03/01/20 15:30 36.8 67 18 124/71 (88) 97 High Flow N/C 3.00 03/01/20 15:00 Nasal Cannula 3.00 03/01/20 14:00 97 Nasal Cannula 3.00 03/01/20 13:25 Nasal Cannula 3 03/01/20 13:25 36.4 20 117/65 (82) 94 Nasal Cannula 3 03/01/20 13:15 Nasal Cannula 3 03/01/20 13:10 20 117/65 (82) 95 OxyMask 3 03/01/20 13:00 OxyMask 5 03/01/20 13:00 20 106/66 (79) 94 OxyMask 4 03/01/20 12:50 20 129/82 (98) 95 OxyMask 5 03/01/20 12:45 OxyMask 5 03/01/20 12:40 20 137/73 (94) 94 OxyMask 6 03/01/20 12:30 20 147/82 (103) 95 OxyMask 8 03/01/20 12:30 OxyMask 8 03/01/20 12:23 36.4 20 147/82 (103) 95 OxyMask 8 03/01/20 12:23 OxyMask 8 03/01/20 12:00 35.6 77 20 131/66 (87) 96 High Flow N/C 3.00 I & O 03/02/20 07:00 Intake Total 3050 ml Output Total 2715 ml Balance 335 ml Capillary Refill : Less Than 3 SecondsLess Than 3 Seconds General Appearance: No Apparent Distress Respiratory: Lungs Clear, Normal Breath Sounds, No Accessory Muscle Use, No Respiratory Distress Cardiovascular: Regular Rate, Rhythm, No Murmur Gastrointestinal: soft; No distended; tenderness (minimally, mostly at incisions), other (drains with serosanguinous fluid) Results Lab Laboratory Tests 03/02/20 10:05: Creatinine 0.77 Microbiology 03/01/20 MRSA Screen - Final, Complete MRSA not isolated Assessment/Plan Assessment/Plan Assessment/Plan S/P Lap drainage of retroperitoneal abscess D/C IV and D/C home Clinical Quality Measures DVT/VTE Risk/Contraindication: Risk Factor Score Per Nursin RFS Level Per Nursing on Admit: 4+=Very High KENNETH DUKES DO Mar 02, 2020 11:28
[2020-03-02] MEDS ORDERED: ACHD5005 PO (11:29)
--- NOTE | 2020-03-02 11:30 | Discharge Inst-Surgical ---
Discharge Inst-Surgical Depart Medication/Instructions New, Converted or Re-Newed RX: RX Given to Pt/Family Patient Instructions Follow up Appt: Make appointment for 1 week. [phone] Instructions: No lifting greater than 20 pounds. No strenuous activity. May shower in 24 hours, no tub bath or soaking. Use incentive spirometer at home as directed. No Smoking Skin/Wound Care: May remove bandages in am. You need to leave the Dermabond on incision it will fall off on it's own. Symptoms to Report: Appetite Changes, Extremity Discoloration, Numbness/Tingling, Swelling Increased, Bleeding Excessive, Eyesight Changes, Pain Increased, Urine Color Change, Constipation(Persistent), Fever over 101 degree F, Pain/Pressure in chest, Urinating Difficulty, Cough Up/Vomit Blood, Heart Beat Irreg/Pounding, Pain/Pressure in jaw, Cramps in feet or legs, Lightheadedness, Pain/Pressure in shoulder, Diarrhea(Persistent), Memory Changes Suddenly, Questions/Concerns, Weight gain consecutive days, Dizziness/Fainting, Nausea/Vomiting, Shortness of Breath, Weight gain over 2 pounds If questions or concerns contact your physician Or seek help at emergency department. Activity Activity as Tolerated: Yes Activity Instructions: Avoid Stress to Incision Driving Instructions: No Driving/Refer to Dr. Menjivar Discharge Diet: No Restrictions Diet After 24 Hours: Clear Liquid if Nauseous If Any Problems/Questions/Issu: Contact Your Physician, Go to Emergency Room Skin/Wound Care Infection Signs and Symptoms: Increased Redness, Foul Odor of Wound, Increased Drainage, Skin Itchy or Has a Rash, Increased Swelling, Temperature Above 101 F Wound Care Comment: TRAMAINE drain teaching, for recording output Bathing Instructions: Shower Stitches/Whitley/Dermabond Dis: Care of Stitches Ice Pack: Ice On and Off Site KENNETH DUKES DO Mar 02, 2020 11:30
--- NOTE | 2020-03-02 12:51 | Anesthesia-General Post-Op ---
General Patient Condition Mental Status/LOC: Same as Preop Cardiovascular: Satisfactory Nausea/Vomiting: Absent Respiratory: Satisfactory Pain: Controlled Complications: Absent Post Op Complications Complications None Follow Up Care/Instructions Patient Instructions None needed. Anesthesia/Patient Condition Patient Condition Patient is doing well, no complaints, stable vital signs, no apparent adverse anesthesia problems. DAHIANA MATHIAS DO Mar 02, 2020 12:51
== END 2020-03-02 13:15 | disposition home or self-care (01) | DRG 358 ==
LOC: SDC 08:20 → 4TH 12:08
PROVIDERS: ADMIT Surgery; ATTEND Surgery
PROC: 0W9H4ZZ Drainage of Retroperitoneum, Percutaneous Endoscopic Approach (ICD-10-PCS; principal; 2020-03-01 09:55)
DX: K68.19 Other retroperitoneal abscess (principal)
CPT/HCPCS: 36415; 82565; 85025; 87070; 87075; 87081; 87101; 87205; 94664

== ENCOUNTER → 2020-03-15 | Outpatient (CLI) | payer OTHER ==
[~2020-03-15] MED LIST changes: +ACHD5005 PO; +CATHETER FLUSH 10 ML SYR IV PRN; +HOLD METFORMIN - RECEIVED CONTRAST 20 ML VIAL IV SCH; +IOHEXOL 350 MG/ML 100 ML (OMNIPAQUE 350) VIAL IV ONE; +NS 100 ML (IVPB) BAG IV ONE
--- NOTE | 2020-03-15 14:38 | Diagnostic Imaging Report ---
CT ABDOMEN/PELVIS W TECHNIQUE: Multiple contiguous axial images were obtained through the abdomen and pelvis after administration of intravenous contrast. All CT scans use one or more of the following dose optimizing techniques: automated exposure control, MA and/or KvP adjustment based on a patient size and exam type, or iterative reconstruction. INDICATION: Abdominal pain and cramping. COMPARISON: 02/07/2020. FINDINGS: Lower chest: The lung bases are clear. No pericardial or pleural effusion. Peritoneum: The abscess along the margin of the liver has dramatically decreased in size since prior examination and two drainage catheters are positioned within the residual perihepatic collection. Liver and biliary system: In the periphery of the inferior right hepatic lobe (segment 7, there is a wedge-shaped air and fluid-filled collection measuring 2.5 x 3.0 cm that appears to extend deep to the capsule of liver and partially into the liver parenchyma. Cholecystectomy. No biliary duct dilatation. Spleen and Pancreas: Spleen is normal. The pancreas enhances normally without mass lesion or peripancreatic inflammatory changes. Adrenals: Normal. tract: The kidneys enhance normally without suspicious mass or obstruction. Urinary bladder is distended without wall thickening. Uterus and ovaries are normal in appearance. GI tract: Stomach is decompressed. No bowel obstruction. No pericolonic inflammatory changes. The appendix is not seen, but there are no features that would suggest appendicitis. Vasculature and Lymph nodes: Normal caliber aorta. No abdominal or pelvic lymphadenopathy. Musculoskeletal: No concerning osseous lesion. IMPRESSION: 1. The right chest wall and perihepatic abscess has markedly diminished in size compared to CT from 02/07/2020 after the placement of a percutaneous drainage catheters. There remains a small amount of pericapsular fluid in the right hepatic lobe that may partially be within the liver and has a possibility that it does not communicate with the collection drained by the catheters. This pericapsular collection measures 2.5 x 3.0 cm. Dictated by: Dictated on workstation # [id number]
== END ==
LOC: RAD 13:44
PROVIDERS: ATTEND Surgery
DX: L02.213 Cutaneous abscess of chest wall (principal); R10.9 Unspecified abdominal pain
CPT/HCPCS: 74177

== ENCOUNTER → 2020-04-06 | Outpatient (CLI) | payer OTHER ==
[2020-04-06 08:40] LABS: BUN/CREATININE RATIO 11; CREATININE SERUM 0.82 MG/DL (0.60-1.30); GFR ESTIMATED > 60
--- NOTE | 2020-04-06 10:12 | Diagnostic Imaging Report ---
PROCEDURE: CT abdomen and pelvis with contrast. TECHNIQUE: Multiple contiguous axial images were obtained through the abdomen and pelvis after administration of intravenous contrast. Auto Exposure Controls were utilized during the CT exam to meet ALARA standards for radiation dose reduction. All CT scans use one or more of the following dose optimizing techniques: automated exposure control, MA and/or KvP adjustment based on patient size and exam type or iterative reconstruction. INDICATION: Abscess drains. COMPARISON made with study 03/15/2020. FINDINGS: There has been interval removal of previous perihepatic drainage catheters. There is recurrence of thick-walled rim-enhancing fluid collection lateral to the right hepatic lobe extending into and through the abdominal wall. This crescentic collection measures 12 cm AP and posterolaterally it extends between the 11th and 12th ribs into the subcutaneous fat of the flank where the subcutaneous component measured 5.8 x 4.7 cm and its superficial margin is found about 3 cm deep to the skin surface. No other fluid collection or suspected abscess is found. There is no ascites. There is no bowel, biliary or urinary tract obstruction. No basilar pleural fluid or evidence for empyema. No intraparenchymal hepatic abscess. Urinary tracts unobstructed. The adrenals are negative. There is fatty atrophy of the pancreas. The uterus, adnexa and urinary bladder unremarkable. IMPRESSION: 1. Removal of prior drainage catheters. Residual or recurrent right extraperitoneal abdominal collection extending through the abdominal wall into the subcutaneous fat of right flank presumed abscess, relevant dimensions above. 2. No other suspected infectious collection. No bowel, biliary or urinary tract obstruction. 3. No findings of intrathoracic extension. Dictated by: Dictated on workstation # [id number]
== END ==
LOC: RAD 07:21
PROVIDERS: ATTEND Surgery
DX: K65.1 Peritoneal abscess (principal)
CPT/HCPCS: 36415; 74177; 82565; 84520

== ENCOUNTER 2021-02-02 23:26 | Emergency (ER) | payer SELFPAY ==
[~2021-02-02] VITALS: Ht 162.6 cm; Wt 105.2 kg
[~2021-02-02 23:26] MED LIST changes: -CATHETER FLUSH 10 ML SYR IV PRN; -HOLD METFORMIN - RECEIVED CONTRAST 20 ML VIAL IV SCH; -IOHEXOL 350 MG/ML 100 ML (OMNIPAQUE 350) VIAL IV ONE; -NS 100 ML (IVPB) BAG IV ONE
[2021-02-03] MEDS ORDERED: LOSARTAN 50 MG (COZAAR) TAB PO STA (00:20)
[2021-02-03] MEDS ORDERED: LOSA50TA63 PO (00:23)
--- NOTE | 2021-02-03 00:23 | ED Cardiac General ---
History of Present Illness General Chief Complaint: Cardiac/General Problems Stated Complaint: ELEV BP Nursing Triage Note: Pt ambulates to ED 2 with c/o elevated bp. Reports at about 2029 tonight, heard a "whooshing" sound in ears, took bp at [facility] and noticed the systolic was 168/94. Pt has had a history of elevated bp on and off, and medication on and off with weight fluctuation. Source: patient Exam Limitations: no limitations History of Present Illness Date Seen by Provider: Feb 03, 2021 Time Seen by Provider: 00:02 Initial Comments This 60-year-old woman presents to the emergency room with complaints of hypertension exacerbation. She complained of achiness in her eyes and a whooshing sound in her ears. She had a cold last week with an asthma exacerbation and coughing up some sputum. The symptoms have now improved. She did have a Covid vaccination earlier in the year. She has had similar symptoms related to hypertension in the past. She is not currently medicated as she lost a significant amount of weight and was taken off her blood pressure medications a couple years ago. Recently she has had about a 30 pound weight gain when she lost her job. She believes her blood pressure has now escalated again with the weight gain. She has an appointment with her primary care provider on February 07 but felt she should not wait to treat her hypertension given her present symptoms. She is feeling improved at this time. Allergies and Home Medications Allergies Coded Allergies: celecoxib (Verified Allergy, Mild, 03/01/20) sulfamethoxazole (Verified Allergy, Unknown, headache, 03/01/20) trimethoprim (Verified Allergy, Unknown, headache, 03/01/20) meloxicam (Verified Adverse Reaction, Unknown, 03/01/20) naproxen (Verified Adverse Reaction, Unknown, 03/01/20) Home Medications Diclofenac Sodium 75 Mg Tablet.dr, 75 MG PO BID, (Reported) Fluticasone/Salmeterol 1 Each Blst.w.dev, 1 EACH IH BID, (Reported) Hydrochlorothiazide 25 Mg Tablet, 25 MG PO DAILY, (Reported) Hydrocodone/Acetaminophen 1 Each Tablet, 1 TAB PO Q6HR PRN for PAIN-SEVERE (8- 10) Prescribed by: KENNETH DUKES on 03/02/20 1129 Levothyroxine Sodium 50 Mcg Tablet, 50 MCG PO DAILY, (Reported) Losartan Potassium 50 Mg Tablet, 50 MG PO DAILY Prescribed by: MONTSERRAT SANDS on 02/03/21 0023 Multivitamin 1 Each Tablet, 1 EACH PO DAILY, (Reported) Omeprazole 20 Mg Capsule.dr, 20 MG PO DAILY, (Reported) Paroxetine HCl 40 Mg Tablet, 40 MG PO HS, (Reported) Tiotropium [place] 4 Gm Mist.inhal, 2 PUFF IH DAILY, (Reported) Patient Home Medication List Home Medication List Reviewed: Yes Review of Systems Review of Systems Constitutional: no symptoms reported EENTM: See HPI Respiratory: See HPI Cardiovascular: See HPI Gastrointestinal: No Symptoms Reported Genitourinary: No Symptoms Reported Musculoskeletal: no symptoms reported Skin: no symptoms reported Psychiatric/Neurological: See HPI Endocrine: No Symptoms Reported Hematologic/Lymphatic: No Symptoms Reported Past Gdfslan-Lhmdsh-Lnnvdt Hx Patient Social History Tobacco Use?: No Substance use?: No Alcohol Use?: No Immunizations Up To Date Tetanus Booster (TDap): Unknown Seasonal Allergies Seasonal Allergies: Yes Past Medical History Surgeries: Yes (abdominal surgical drain) Section, Gallbladder Respiratory: Yes ("RESTRICTIVE LUNG DISEASE" PER PT) Asthma Currently Using CPAP: No Currently Using BIPAP: No Cardiac: Yes (no issues since wt loss) Hypertension Neurological: No Reproductive Disorders: No Genitourinary: No Gastrointestinal: Yes (abscess) Gastroesophageal Reflux Musculoskeletal: Yes Arthritis Endocrine: Yes Hypothyroidsim HEENT: No Cancer: No Psychosocial: Yes Depression Integumentary: No Blood Disorders: No Family Medical History No Pertinent Family Hx Physical Exam Vital Signs Vital Signs - First Documented 02/02/21 23:34 Temp 35.8 Pulse 69 Resp 18 B/P (MAP) 193/99 (130) Pulse Ox 98 O2 Delivery Room Air Capillary Refill : Height, Weight, BMI Height: 5'4.00" Weight: 232lbs. oz. [id number]; 39.00 BMI Method:Stated General Appearance: No Apparent Distress, WD/WN HEENT: PERRL/EOMI, TMs Normal, Normal ENT Inspection Neck: Normal Inspection Respiratory: Lungs Clear, Normal Breath Sounds, No Accessory Muscle Use Cardiovascular: Regular Rate, Rhythm, No Edema, No Murmur Gastrointestinal: Non Tender; No Distended Extremity: Normal Inspection Neurologic/Psychiatric: Alert, Oriented x3, No Motor/Sensory Deficits, Normal Mood/Affect Skin: Normal Color, Warm/Dry Progress/Results/Core Measures Results/Orders My Orders Orders - MONTSERRAT RANDOLPH MD Losartan Tablet (Cozaar Tablet) (02/03/21 00:20) Vital Signs/I&O 02/02/21 02/03/21 23:34 00:53 Temp 35.8 35.8 Pulse 69 66 Resp 18 16 B/P (MAP) 193/99 (130) 153/78 (130) Pulse Ox 98 98 O2 Delivery Room Air Room Air Blood Pressure Mean: 130 Progress Progress Note : Progress Note I offered work-up including lab evaluation. Patient states she is accustomed to these symptoms when her blood pressure is not controlled. She wishes to simply treat the hypertension at this time and follow-up with her primary care provider. The first dose of the losartan was administered in the ER and she was given a prescription. Departure Impression Primary Impression: Hypertension Qualified Codes: I10 - Essential (primary) hypertension Disposition: 01 HOME, SELF-CARE Condition: Improved Departure-Patient Inst. Decision time for Depature: 00:22 Referrals: [facility] [place] (PCP/Family) Primary Care Physician Patient Instructions: High Blood Pressure in Adults Add. Discharge Instructions: Keep your appointment next week. Start your medication tomorrow morning. Drink plenty of water and eat a low-salt diet. Avoid stimulants that can accelerate your blood pressure such as excessive caffeine, energy drinks, decongestant medications, etc. Call with questions or concerns. Return to the ER if you have worsening symptoms. All discharge instructions reviewed with patient and/or family. Voiced understanding. Scripts Losartan Potassium (Losartan Potassium) 50 Mg Tablet 50 MG PO DAILY, #30 TAB Prov: MONTSERRAT RANDOLPH MD 02/03/21 Copy Copies To 1: GEGE PRUITT JOSHUA T MD Feb 03, 2021 00:23
[2021-02-03 00:53] VITALS: BP 153/78
== END 2021-02-03 00:53 | disposition home or self-care (01) ==
LOC: EDUNIT# 23:26 → ER 23:29
DX: I10 Essential (primary) hypertension (principal); J45.909 Unspecified asthma, uncomplicated; K21.9 Gastro-esophageal reflux disease without esophagitis; E03.9 Hypothyroidism, unspecified; F32.9 Major depressive disorder, single episode, unspecified; Z79.890 Hormone replacement therapy; Z79.899 Other long term (current) drug therapy
CPT/HCPCS: 99283

== ENCOUNTER → 2021-04-15 | Outpatient (CLI) | payer SELFPAY ==
[~2021-04-15] MED LIST changes: +LOSA50TA63 PO
--- NOTE | 2021-04-15 15:50 | Diagnostic Imaging Report ---
PROCEDURE: CT abdomen and pelvis without contrast. TECHNIQUE: Multiple contiguous axial images were obtained through the abdomen and pelvis without the use of intravenous contrast. Auto Exposure Controls were utilized during the CT exam to meet ALARA standards for radiation dose reduction. INDICATION: Right-sided pelvic hernia. Follow-up. COMPARISON: 04/06/2020. FINDINGS: The heart is unremarkable. The lung bases are clear. The liver, spleen, pancreas, adrenal glands, and kidneys have a normal noncontrast CT appearance. The gallbladder is surgically absent. There is no pathologically enlarged mesenteric or retroperitoneal adenopathy. The bowel loops are nondilated. A moderate amount of stool is present in the colon. There is no free fluid or free air. A loculated collection is seen in the abdominal wall of the right upper quadrant adjacent to the lateral margin of the liver measuring 6.3 x 3.1 cm and 4.0 cm craniocaudal. Overall, this collection has decreased in size compared to the prior exam with the components appearing more intra-abdominal having resolved. A second collection extending to the soft tissues of the more posterior aspect of the right abdomen demonstrates soft tissue fullness with no residual fluid. No acute osseous abnormalities. There is grade 1 anterolisthesis of L4 on L5. Ureters and bladder are normal. Bilateral fat-containing inguinal hernias are seen. There is no free air, loculated collection, or adenopathy in the pelvis. IMPRESSION: 1. Interval decrease in size in a multilocular fluid collection involving the abdominal wall of the abdomen on the right. Residual loculated collection is seen lateral to the liver. Recommend continued follow-up as indicated. 2. Moderate amount of stool throughout the colon suggestive of constipation. No bowel obstruction. 3. Bilateral fat-containing inguinal hernias. Dictated by: Dictated on workstation # [id number]
== END ==
LOC: RAD 14:15
PROVIDERS: ATTEND Nurse Practitioner Family
DX: K40.20 Bilateral inguinal hernia, without obstruction or gangrene, not specified as recurrent (principal)
CPT/HCPCS: 74176

== ENCOUNTER 2021-05-05 21:39 | Emergency (ER) | payer SELFPAY ==
[~2021-05-05] VITALS: Ht 162.6 cm; Wt 111.0 kg
[2021-05-05 23:25] LABS: BASOPHILS % (AUTO) 0 % (0-10); EOSINOPHILS # (AUTO) 0.3 10^3/uL (0.0-0.3); EOSINOPHILS % (AUTO) 2 % (0-10); HEMATOCRIT 42 % (35-52); HEMOGLOBIN 13.3 g/dL (11.5-16.0); LYMPHOCYTES # (AUTO) 1.6 10^3/uL (1.0-4.0); LYMPHOCYTES % (AUTO) 12 % (12-44); MEAN CORPUSCULAR HEMOGLOBIN 29 pg (25-34); MEAN CORPUSCULAR HGB CONC 31 g/dL (32-36); MEAN CORPUSCULAR VOLUME 91 fL (80-99); MEAN PLATELET VOLUME 9.5 fL (9.0-12.2); MONOCYTES # (AUTO) 1.1 10^3/uL (0.0-1.0); MONOCYTES % (AUTO) 9 % (0-12); NEUTROPHILS # (AUTO) 9.7 10^3/uL (1.8-7.8); NEUTROPHILS % (AUTO) 76 % (42-75); PLATELET COUNT 348 10^3/uL (130-400); WHITE BLOOD COUNT 12.8 10^3/uL (4.3-11.0)
--- NOTE | 2021-05-05 23:32 | ED Cough/URI ---
General Chief Complaint: COVID19 Suspect/Confirmed Stated Complaint: BP ISSUES LOSS OF TASTE/SMELL/SOA/HEAD CONGESTION Nursing Triage Note: Pt to ER with complaints of SOA/cough/"flu like symptoms" onset a few days ago (05/03/2021) Source: patient History of Present Illness Date Seen by Provider: May 05, 2021 Time Seen by Provider: 22:39 Initial Comments PT ARRIVES VIA POV FROM HOME STATES SHE STARTED FEELING SICK ON THURSDAY NIGHT 05/03/21 C/O NASAL CONGESTION AND SINUS DRAINAGE C/O NON-PRODUCTIVE COUGH C/O LOSS OF TASTE AND SMELL C/O FEVER 99.9 C/O CHILLS C/O FATIGUE C/O HEADACHE C/O BODY ACHES C/O SHORTNESS OF BREATH, ESPECIALLY WITH MINIMAL EXERTION--WORSE TONIGHT C/O SORE THROAT C/O NAUSEA AND LOOSE STOOLS X 3 TODAY PT HAS HAD COVID-19 VACCINE NO KNOWN SICK CONTACTS, BUT PT STARTED NEW JOB AT [employer] IN THE LAST 1-2 WEEKS--IS NOT TESTED FOR COVID-19 AT WORK PT ALSO GOT TOGETHER WITH FAMILY OVER THANKSGIVING THIS LAST WEEK PT WITH HISTORY OF ASTHMA USES ADVAIR AND SPIRIVA DAILY AND ALBUTEROL NEBULIZER PRN--USED NEBULIZER X 1 THIS AFTERNOON PCP: IZABELA-CINDY, DELORIS STOVALL Allergies and Home Medications Allergies Coded Allergies: celecoxib (Verified Allergy, Mild, 03/01/20) sulfamethoxazole (Verified Allergy, Unknown, headache, 03/01/20) trimethoprim (Verified Allergy, Unknown, headache, 03/01/20) meloxicam (Verified Adverse Reaction, Unknown, 03/01/20) naproxen (Verified Adverse Reaction, Unknown, 03/01/20) Patient Home Medication List Home Medication List Reviewed: Yes Cefdinir (Cefdinir) 300 Mg Capsule, 300 MG PO BID Prescribed by: TANISHA BARNES on 05/06/21 0202 Dexamethasone (Decadron) 6 Mg Tablet, 6 MG PO DAILY Prescribed by: TANISHA BARNES on 05/06/21 013 Diclofenac Sodium (Diclofenac Sodium) 75 Mg Tablet.dr, 75 MG PO BID, (Reported) Entered as Reported by: JAREK RAMIREZ on 02/29/20 0943 Fluticasone/Salmeterol (Advair 250-50 Diskus) 1 Each Blst.w.dev, 1 EACH IH BID, (Reported) Entered as Reported by: JAREK RAMIREZ on 02/29/20 09 Hydrochlorothiazide (Hydrochlorothiazide) 25 Mg Tablet, 25 MG PO DAILY, (Reported) Entered as Reported by: JAREK RAMIREZ on 02/29/20937 Hydrocodone/Acetaminophen (Hydrocodone-Acetamin 5-325 mg) 1 Each Tablet, 1 TAB PO Q6HR PRN for PAIN-SEVERE (8-10) Prescribed by: KENNETH DUKES on 03/02/20 1129 Levothyroxine Sodium (Levothyroxine Sodium) 50 Mcg Tablet, 50 MCG PO DAILY, (Reported) Entered as Reported by: JAREK RAMIREZ on 02/29/20 09 Losartan Potassium (Losartan Potassium) 50 Mg Tablet, 50 MG PO DAILY Prescribed by: MONTSERRAT SANDS on 02/03/21 0023 Multivitamin (Multivitamin) 1 Each Tablet, 1 EACH PO DAILY, (Reported) Entered as Reported by: JAREK RAMIREZ on 02/29/20937 Omeprazole (Omeprazole) 20 Mg Capsule.dr, 20 MG PO DAILY, (Reported) Entered as Reported by: MAY GORDON on 08/31/17 1243 Paroxetine HCl (Paroxetine HCl) 40 Mg Tablet, 40 MG PO HS, (Reported) Entered as Reported by: JAREK RAMIREZ on 02/29/20937 Rivaroxaban (Xarelto Starter Pack) 1 Each Tab.ds.pk, 1 EACH PO UD Prescribed by: TANISHA BARNES on 05/06/21 0149 Tiotropium [place] (Spiriva Respimat 1.25MCG/ACTUATION) 4 Gm Mist.inhal, 2 PUFF IH DAILY, (Reported) Entered as Reported by: JAREK RAMIREZ on 02/29/20 09 Review of Systems Review of Systems Constitutional: see HPI, chills, fever, malaise, weakness EENTM: see HPI, nose congestion, throat pain Respiratory: see HPI, cough, dyspnea on exertion; No phlegm; short of breath Cardiovascular: no symptoms reported; No chest pain Gastrointestinal: see HPI; No abdominal pain; diarrhea, nausea; No vomiting Genitourinary: no symptoms reported Musculoskeletal: see HPI (BODY ACHES) Skin: no symptoms reported Psychiatric/Neurological: See HPI, Headache Hematologic/Lymphatic: No Symptoms Reported Immunological/Allergic: no symptoms reported Past Mstnrag-Pqxcil-Lgkzjz Hx Patient Social History Tobacco Use?: No Smoking Status: Never a Smoker Smokeless Tobacco Frequency: Never a User Use of E-Cig and/or Vaping dev: No Use of E-Cig and/or Vaping Jayden: Never a User Substance use?: Yes Substance type: Marijuana Substance frequency: Couple times a week Alcohol Use?: No Pt feels they are or have been: No Immunizations Up To Date Tetanus Booster (TDap): Unknown Influenza Vaccine Up-to-Date: Yes; Up-to-Date First/Initial COVID19 Vaccinat: Jul 2020 Second COVID19 Vaccination Bob: August 2020 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: [employer] Seasonal Allergies Seasonal Allergies: Yes Past Medical History Surgery/Hospitalization HX: gall bladder removal C section Surgeries: Yes (abdominal surgical drain) Section, Gallbladder Respiratory: Yes ("RESTRICTIVE LUNG DISEASE" PER PT) Asthma Currently Using CPAP: No Currently Using BIPAP: No Cardiac: Yes Hypertension Neurological: No Reproductive Disorders: No Genitourinary: No Gastrointestinal: Yes (RETROPERITONEAL ABSCESS DRAINED 02/2020) Gastroesophageal Reflux Musculoskeletal: Yes Arthritis Endocrine: Yes (OBESITY) Hypothyroidsim HEENT: No Cancer: No Psychosocial: Yes (HX OF POLYSUBSTANCE ABUSE) Anxiety, Depression Integumentary: No Blood Disorders: No Family Medical History No Pertinent Family Hx SOCIAL HISTORY: -SMOKING--DENIES USE -ETOH--HISTORY OF ABVUSE, CLAIMS NONE FOR YEARS -DRUGS-EXTENSIVE HISTORY OF DRUG USE--THC, CRACK/COCAINE, ACID, SPEED, ETC.--CLAIMS NONE FOR YEARS. DENIES IV USE, BUT DID OVERDOSE ON CRACK COCAINE PAST SURGICAL HISTORY: - X 1 -CHOLECYSTECTOMY 01/[address] VELASCO -DIAGNOSTIC LAPAROSCOPY AND DRAINAGE OF RETROPERITONEAL ABSCESS 03/01/[address] DUKES Physical Exam Vital Signs - First Documented 05/05/21 22:39 Temp 36.9 Pulse 64 Resp 18 B/P (MAP) 152/97 (115) O2 Delivery Nasal Cannula O2 Flow Rate 2.00 Capillary Refill : Less Than 3 Seconds Height: 5'4.00" Weight: 232lbs. oz. 105.172244rl; 41.00 BMI Method:Stated General Appearance: WD/WN, no apparent distress, obese HEENT: PERRL/EOMI, TMs normal, pharynx normal, other (MILD NASAL CONGESTION, CLEAR POST NASAL DRAINAGE. NO SINUS TENDERNESS) Neck: normal inspection Respiratory: no respiratory distress, no accessory muscle use, rales (IN BASES) Cardiovascular: regular rate, rhythm, no murmur Gastrointestinal: non tender, soft Extremities: normal inspection, normal capillary refill Neurologic/Psychiatric: no motor/sensory deficits, alert, normal mood/affect, oriented x 3 Skin: normal color, warm/dry Focused Exam Lactate Level 05/05/21 23:35: Lactic Acid Level 0.93 Lactic Acid Level Laboratory Tests Test 05/05/21 23:35 Lactic Acid Level 0.93 MMOL/L (0.50-2.00) Progress/Results/Core Measures Suspected Sepsis SIRS Temperature: Pulse: 64 Respiratory Rate: 18 Laboratory Tests 05/05/21 23:15: White Blood Count 12.8H Blood Pressure 152 /97 Mean: 115 05/05/21 23:35: Lactic Acid Level 0.93 Laboratory Tests 05/05/21 23:15: Creatinine 0.89, Platelet Count 348, Total Bilirubin 0.2 Results/Orders Lab Results Laboratory Tests Test 05/05/21 23:15 05/05/21 23:35 Range/Units White Blood Count 12.8 H 4.3-11.0 10^3/uL Red Blood Count 4.64 3.80-5.11 10^6/uL Hemoglobin 13.3 11.5-16.0 g/dL Hematocrit 42 35-52 % Mean Corpuscular Volume 91 80-99 fL Mean Corpuscular Hemoglobin 29 25-34 pg Mean Corpuscular Hemoglobin Concent 31 L 32-36 g/dL Red Cell Distribution Width 13.2 10.0-14.5 % Platelet Count 348 130-400 10^3/uL Mean Platelet Volume 9.5 9.0-12.2 fL Immature Granulocyte % (Auto) 0 % Neutrophils (%) (Auto) 76 H 42-75 % Lymphocytes (%) (Auto) 12 12-44 % Monocytes (%) (Auto) 9 0-12 % Eosinophils (%) (Auto) 2 0-10 % Basophils (%) (Auto) 0 0-10 % Neutrophils # (Auto) 9.7 H 1.8-7.8 10^3/uL Lymphocytes # (Auto) 1.6 1.0-4.0 10^3/uL Monocytes # (Auto) 1.1 H 0.0-1.0 10^3/uL Eosinophils # (Auto) 0.3 0.0-0.3 10^3/uL Basophils # (Auto) 0.0 0.0-0.1 10^3/uL Immature Granulocyte # (Auto) 0.0 0.0-0.1 10^3/uL Erythrocyte Sedimentation Rate 21 0-30 MM/HR Sodium Level 139 135-145 MMOL/L Potassium Level 3.8 3.6-5.0 MMOL/L Chloride Level 100 98-107 MMOL/L Carbon Dioxide Level 27 21-32 MMOL/L Anion Gap 12 5-14 MMOL/L Blood Urea Nitrogen 17 7-18 MG/DL Creatinine 0.89 0.60-1.30 MG/DL Estimat Glomerular Filtration Rate 65 BUN/Creatinine Ratio 19 Glucose Level 107 H 70-105 MG/DL Calcium Level 9.1 8.5-10.1 MG/DL Corrected Calcium 9.1 8.5-10.1 MG/DL Magnesium Level 1.6 1.6-2.4 MG/DL Total Bilirubin 0.2 0.1-1.0 MG/DL Aspartate Amino Transf (AST/SGOT) 28 5-34 U/L Alanine Aminotransferase (ALT/SGPT) 24 0-55 U/L Alkaline Phosphatase 114 40-136 U/L Total Creatine Kinase 79 29-168 U/L Creatine Kinase MB 1.4 <6.6 NG/ML Troponin I < 0.028 <0.028 NG/ML C-Reactive Protein High Sensitivity 3.17 H 0.00-0.50 MG/DL B-Type Natriuretic Peptide 74.0 <100.0 PG/ML Total Protein 7.1 6.4-8.2 GM/DL Albumin 4.0 3.2-4.5 GM/DL Procalcitonin 0.16 H <0.10 NG/ML Influenza Type A (RT-PCR) Not Detected Not Detecte Influenza Type B (RT-PCR) Not Detected Not Detecte SARS-CoV-2 RNA (RT-PCR) Detected H Not Detecte Lactic Acid Level 0.93 0.50-2.00 MMOL/L TANISHA Leal DO Influenza A And B By Pcr (05/05/21 22:38) Covid 19 Inhouse Test (05/05/21 22:38) Ed Iv/Invasive Line Start (05/05/21 23:06) Monitor-Rhythm Ecg Trace Only (05/05/21 23:06) BNP (05/05/21 23:06) Cbc With Automated Diff (05/05/21 23:06) Comprehensive Metabolic Panel (05/05/21 23:06) Creatine Kinase (05/05/21 23:06) Creatine Kinase Mb (05/05/21 23:06) Hs C Reactive Protein (05/05/21 23:06) Lactic Acid Analyzer (05/05/21 23:06) Magnesium (05/05/21 23:06) Blood Culture (05/05/21 23:06) Erythrocyte Sedimentation Rate (05/05/21 23:06) Troponin I (05/05/21 23:06) Procalcitonin (Pct) (05/05/21 23:06) Dexamethasone Injection (Decadron Inje (05/05/21 23:15) Chest 1 View, Ap/Pa Only (05/06/21 00:01) Ct Angio Chest W (05/06/21 00:30) Ceftriaxone 1 Gm Pre-Mix (Rocephin 1 Gm (05/06/21 00:30) Iohexol Injection (Omnipaque 350 Mg/Ml 1 (05/06/21 00:45) Received Contrast (Hold Metformin- Contr (05/06/21 00:45) Ns (Ivpb) (Sodium Chloride 0.9% Ivpb Bag (05/06/21 00:45) Enoxaparin Injection (Lovenox Injection) (05/06/21 02:00) Enoxaparin Injection (Lovenox Injection) (05/06/21 02:00) Medications Given in ED Current Medications Medications Dose Ordered Sig/Sita Route Start Time Stop Time Status Last Admin Dose Admin Dexamethasone Sodium Phosphate 6 mg ONCE ONCE IV 05/05/21 23:15 05/05/21 23:16 DC 05/05/21 23:40 6 MG Enoxaparin Sodium 60 mg ONCE ONCE SC 05/06/21 02:00 05/06/21 02:01 DC 05/06/21 02:02 60 MG Enoxaparin Sodium 60 mg ONCE ONCE SC 05/06/21 02:00 05/06/21 02:01 DC 05/06/21 02:02 60 MG Iohexol 100 ml ONCE ONCE IV 05/06/21 00:45 05/06/21 00:48 DC 05/06/21 01:06 84 ML Sodium Chloride 100 ml ONCE ONCE IV 05/06/21 00:45 05/06/21 00:48 DC 05/06/21 01:06 80 ML Vital Signs/I&O 05/05/21 05/05/21 22:39 22:39 Temp 36.9 Pulse 64 Resp 18 B/P (MAP) 152/97 (115) O2 Delivery Nasal Cannula O2 Flow Rate 2.00 Capillary Refill : Less Than 3 Seconds Blood Pressure Mean: 115 Progress Note : Progress Note PLACED IN ISOLATION ROOM PPE WORN COVID-19 TESTING PERFORMED NO HYPOXIA NO COUGH NO DYSPNEA NO FEVER DISCUSSED REGENERON INFUSION AND PT WISHES TO PROCEED. FORM FILLED OUT AND SENT TO PHARMACY. CT CHEST ANGIOGRAM IS NON-DIAGNOSTIC DUE TO INADEQUATE CONTRAST, WILL GIVE DOSE OF LOVENOX HERE AND GIVE RX FOR XARELTO, THEN PT IS TO FOLLOW UP WITH PCP IN 2 DAYS FOR FURTHER CARE, AND POSSIBLY ADDITIONAL OUTPATIENT TESTING Diagnostic Imaging Comments CXR--RLL INFILTRATE ?, PENDING RADIOLOGIST REVIEW CT CHEST ANGIOGRAM--PER [facility] VIA FAX AT [phone] NON-DIAGNOSTIC EXAM DUE TO INADEQUATE CONTRAST. Reviewed: Reviewed by Me Departure Impression Primary Impression: COVID-19 virus infection Additional Impression: Asthma Disposition: 01 HOME, SELF-CARE Condition: Stable Departure-Patient Inst. Decision time for Depature: 01:45 Referrals: [facility] [place] (PCP/Family) Primary Care Physician Patient Instructions: COVID-19 (DC), Preventing the Spread of an Infectious Disease, REGEN-COV (casirivimab and imdevimab) FDA Fact Sheet, Asthma in Adults Add. Discharge Instructions: USE YOUR INHALERS DAILY PRESCRIBED USE YOUR ALBUTEROL NEBULIZER EVERY 4 HOURS NEEDED TYLENOL 1 GRAM/ MOTRIN 800 MG 4 TIMES A DAY FOR PAIN OR FEVER LOTS OF FLUIDS PHARMACY WILL BE CONTACTING YOU TO SET UP A TIME FOR MONOCLONAL ANTIBODY INFUSION RETURN TO ER IF SYMPTOMS WORSEN QUARANTINE YOURSELF, ALL HOUSEHOLD AND CLOSE CONTACTS FOR THE NEXT 2 WEEKS FOLLOW UP WITH YOUR DR IN 2 DAYS FOR FURTHER CARE, CALL IN AM TO SCHEDULE APPO INTMENT All discharge instructions reviewed with patient and/or family. Voiced understanding. Scripts Cefdinir (Cefdinir) 300 Mg Capsule 300 MG PO BID, #20 CAP Prov: TANISHA BARNES DO 05/06/21 Rivaroxaban (Xarelto Starter Pack) 1 Each Tab.ds.pk 1 EACH PO UD, #51 PKG 15mg by mouth twice daily x 21 days then 20mg by mouth daily Prov: TANISHA BARNES DO 05/06/21 Dexamethasone (Decadron) 6 Mg Tablet 6 MG PO DAILY, #10 TAB Prov: TANISHA BARNES DO 05/06/21 Work/School Note: Work Release Form Date Seen in the Emergency Department: May 05, 2021 Return to Work: May 20, 2021 TANISHA BARNES DO May 05, 2021 23:32
[2021-05-05 23:37] LABS: CHLORIDE 100 MMOL/L (98-107); POTASSIUM 3.8 MMOL/L (3.6-5.0); SODIUM 139 MMOL/L (135-145)
[2021-05-05 23:38] LABS: CALCIUM 9.1 MG/DL (8.5-10.1)
[2021-05-05 23:39] LABS: GLUCOSE 107 MG/DL (70-105); TOTAL PROTEIN 7.1 GM/DL (6.4-8.2)
[2021-05-05 23:40] LABS: CARBON DIOXIDE 27 MMOL/L (21-32)
[2021-05-05 23:41] LABS: BILIRUBIN,TOTAL 0.2 MG/DL (0.1-1.0)
[2021-05-05 23:42] LABS: ALKALINE PHOSPHATASE 114 U/L (40-136)
[2021-05-05 23:43] LABS: CREATININE SERUM 0.89 MG/DL (0.60-1.30); GFR ESTIMATED 65
[2021-05-05 23:44] LABS: BUN/CREATININE RATIO 19; ERYTHROCYTE SEDIMENTATION RATE 21 MM/HR (0-30)
[2021-05-05 23:45] LABS: ALANINE AMINOTRANSFERASE 24 U/L (0-55); MAGNESIUM 1.6 MG/DL (1.6-2.4)
[2021-05-05 23:46] LABS: CREATINE KINASE 79 U/L (29-168)
[2021-05-05 23:52] LABS: CREATINE KINASE MB 1.4 NG/ML (<6.6)
[2021-05-06] MEDS ORDERED: cefTRIAXone 1 GM PRE-MIX 50 ML IV STA (00:30)
[2021-05-06] MEDS ORDERED: IOHEXOL 350 MG/ML 100 ML (OMNIPAQUE 350) VIAL IV ONE (00:45)
[2021-05-06] MEDS ORDERED: HOLD METFORMIN - RECEIVED CONTRAST 20 ML VIAL IV SCH (00:45)
[2021-05-06] MEDS ORDERED: NS 100 ML (IVPB) BAG IV ONE (00:45)
[2021-05-06] MEDS ORDERED: DOXY100T2 PO (01:32)
[2021-05-06] MEDS ORDERED: DEXA6TAB6 PO (01:32)
[2021-05-06] MEDS ORDERED: RIVA1TAB PO (01:49)
[2021-05-06] MEDS ORDERED: ENOXAPARIN 60 MG/0.6 ML (LOVENOX) SYR SC ONE ×2 (02:00)
[2021-05-06] MEDS ORDERED: CEFD300C3 PO (02:02)
[2021-05-06 02:16] VITALS: BP 162/121
--- NOTE | 2021-05-06 07:05 | Diagnostic Imaging Report ---
PROCEDURE: CT angiography of the chest with contrast. TECHNIQUE: Multiple contiguous axial images were obtained through the chest after uneventful bolus administration of intravenous contrast. 3D reconstructed CTA MIP acquisitions were also performed. Auto Exposure Controls were utilized during the CT exam to meet ALARA standards for radiation dose reduction. INDICATION: Chest pain, shortness of breath. FINDINGS: Evaluation for pulmonary embolism is limited due to suboptimal bolus timing. No obvious central or proximal filling defects are appreciated. There is minimal scarring or atelectasis in lung bases. There is no pleural or pericardial fluid. There is no pneumothorax. Thoracic aorta is normal in caliber without evidence of dissection. There is no pathologically enlarged adenopathy in the chest. The visualized intraabdominal structures are unremarkable. There are mild degenerative changes in the spine. IMPRESSION: Suboptimal evaluation for pulmonary embolism due to poor bolus timing. No obvious central or proximal filling defects are appreciated. Recommend clinical correlation and if warranted, follow up with VQ scan if there is high clinical concern. Minimal scarring or atelectasis in lung bases. No other acute abnormality in the chest. Dictated by: Dictated on workstation # [id number]
--- NOTE | 2021-05-06 07:22 | Diagnostic Imaging Report ---
INDICATION: Cough and dyspnea. Comparison made with prior examination of 12/16/2019. FINDINGS: The heart size, mediastinal configuration, and pulmonary vascularity are within normal limits. There is no pleural effusion, pneumothorax, or pneumonia. The osseous structures are unremarkable. IMPRESSION: No acute cardiopulmonary abnormality. Dictated by: Dictated on workstation # [id number]
== END 2021-05-06 02:18 | disposition home or self-care (01) ==
LOC: EDUNIT# 21:39 → ER 21:41
DX: U07.1 COVID-19 (principal); J45.909 Unspecified asthma, uncomplicated; I10 Essential (primary) hypertension; E03.9 Hypothyroidism, unspecified; F41.9 Anxiety disorder, unspecified; F32.9 Major depressive disorder, single episode, unspecified; K21.9 Gastro-esophageal reflux disease without esophagitis; E66.9 Obesity, unspecified; Z88.1 Allergy status to other antibiotic agents; Z88.2 Allergy status to sulfonamides; Z88.5 Allergy status to narcotic agent; Z79.51 Long term (current) use of inhaled steroids; Z79.890 Hormone replacement therapy; Z79.899 Other long term (current) drug therapy
CPT/HCPCS: 36415; 71045; 71275; 80053; 82550; 82553; 83605; 83735; 83880; 84145; 84484; 85025; 85652; 86141; 87040; 87636; 93041

== ENCOUNTER → 2021-05-16 | Outpatient (CLI) | payer SELFPAY ==
[~2021-05-16] MED LIST changes: +CEFD300C3 PO; +DEXA6TAB6 PO; +DOXY100T2 PO; +RIVA1TAB PO
== END ==
LOC: CARD 11:00
PROVIDERS: ATTEND Nurse Practitioner Family
DX: I34.0 Nonrheumatic mitral (valve) insufficiency (principal); E66.01 Morbid (severe) obesity due to excess calories
CPT/HCPCS: 93306

== ENCOUNTER 2023-01-02 23:24 | Inpatient (IN) | payer SELFPAY ==
[~2023-01-02] VITALS: Ht 162 cm; Wt 91.9 kg
[2023-01-02 23:45] LABS: BASOPHILS # (AUTO) 0.1 10^3/uL (0.0-0.1); BASOPHILS % (AUTO) 1 % (0-10); EOSINOPHILS # (AUTO) 0.7 10^3/uL (0.0-0.3); EOSINOPHILS % (AUTO) 5 % (0-10); HEMATOCRIT 41 % (35-52); HEMOGLOBIN 12.9 g/dL (11.5-16.0); LYMPHOCYTES % (AUTO) 43 % (12-44); MEAN CORPUSCULAR HEMOGLOBIN 29 pg (25-34); MEAN CORPUSCULAR HGB CONC 31 g/dL (32-36); MEAN CORPUSCULAR VOLUME 94 fL (80-99); MEAN PLATELET VOLUME 9.9 fL (9.0-12.2); MONOCYTES # (AUTO) 0.9 10^3/uL (0.0-1.0); MONOCYTES % (AUTO) 7 % (0-12); NEUTROPHILS # (AUTO) 6.2 10^3/uL (1.8-7.8); NEUTROPHILS % (AUTO) 45 % (42-75); PLATELET COUNT 450 10^3/uL (130-400)
[2023-01-02] MEDS ORDERED: RT-ALBUTEROL/IPRATROPIUM 3 ML (DUONEB) VIAL INH ONE (23:45)
[2023-01-02] MEDS ORDERED: LACTATED RINGERS 1,000 ML IV ONE (23:45)
[2023-01-02] MEDS ORDERED: dexAMETHasone INJ 10 MG/ML 1 ML VIAL IV ONE (23:45)
[2023-01-02] MEDS ORDERED: dexAMETHasone INJ 4 MG/ML SDV IH ONE (23:45)
[2023-01-02] MEDS ORDERED: ADENOSINE INJECTION 6 MG/2 ML VIAL IV ONE (23:48)
[2023-01-02] MEDS ORDERED: ONDANSETRON 4 MG/2 ML (SDV) Z0FRAN ONE (23:49)
[2023-01-02 23:55] LABS: INR 1.1 (0.8-1.4); PROTHROMBIN TIME PATIENT 14.1 SEC (12.2-14.7)
[2023-01-02 23:56] LABS: CHLORIDE 102 MMOL/L (98-107); SODIUM 139 MMOL/L (135-145)
[2023-01-02 23:57] LABS: CALCIUM 8.7 MG/DL (8.5-10.1)
[2023-01-02 23:58] LABS: GLUCOSE 267 MG/DL (70-105)
[2023-01-02 23:59] LABS: CARBON DIOXIDE 16 MMOL/L (21-32)
[2023-01-03 00:01] LABS: ALKALINE PHOSPHATASE 122 U/L (40-136); BILIRUBIN,TOTAL 0.2 MG/DL (0.1-1.0)
[2023-01-03 00:02] LABS: CREATININE SERUM 1.83 MG/DL (0.60-1.30); GFR ESTIMATED 31
[2023-01-03 00:03] LABS: BUN/CREATININE RATIO 8
[2023-01-03 00:04] LABS: ALANINE AMINOTRANSFERASE 28 U/L (0-55); MAGNESIUM 1.9 MG/DL (1.6-2.4)
[2023-01-03 00:24] LABS: TSH (THYROID ANALYZER) 5.18 UIU/ML (0.35-4.94)
[2023-01-03] MEDS ORDERED: LIDOCAINE UROJET 2% GEL 10 ML PKG TOP ONE (00:30)
[2023-01-03] MEDS ORDERED: NS IV 1000 ML 1,000 ML IV SCH ×3 (00:45→04:45)
[2023-01-03 00:59] LABS: BILIRUBIN,URINE NEGATIVE (NEGATIVE); CLARITY,URINE CLEAR; COLOR,URINE YELLOW; GLUCOSE, URINE (UA) NEGATIVE (NEGATIVE); KETONES,URINE NEGATIVE (NEGATIVE); LEUKOCYTE ESTERASE ,URINE NEGATIVE (NEGATIVE); NITRITE,URINE NEGATIVE (NEGATIVE); PROTEIN,URINE 2+ (NEGATIVE)
[2023-01-03] MEDS ORDERED: ENOXAPARIN 100 MG/1 ML SYRINGE SC ONE (01:00)
[2023-01-03] MEDS ORDERED: NOREPINEPHRINE 8 MG/250 ML 250 ML IV SCH (01:00)
[2023-01-03] MEDS ORDERED: ASPIRIN 81 MG CHEWABLE TABLET PO ONE (01:00)
[2023-01-03] MEDS ORDERED: CEFEPIME INJECTION 1,000 MG in NS (IVPB) 50 ML 50 ML IV ONE (01:00)
[2023-01-03 01:07] LABS: BACTERIA,URINE FEW /HPF; HYALINE CASTS, URINE 0-2 /LPF; SQUAMOUS EPITHELIAL CELL,UR 0-2 /HPF; WBC,URINE 0-2 /HPF
[2023-01-03] MEDS ORDERED: ASPIRIN 81 MG CHEWABLE TABLET ONE (01:10)
[2023-01-03 01:12] LABS: AMPHETAMINE SCREEN, URINE NEGATIVE (NEGATIVE); BARBITURATE SCREEN URINE NEGATIVE (NEGATIVE); BENZODIAZEPINES SCREEN URINE NEGATIVE (NEGATIVE); CANNABINOID SCREEN, URINE POSITIVE (NEGATIVE); COCAINE SCREEN URINE NEGATIVE (NEGATIVE); METHADONE STAT NEGATIVE (NEGATIVE); OPIATE SCREEN URINE NEGATIVE (NEGATIVE); OXYCODONE STAT NEGATIVE (NEGATIVE); PROPOXYPHENE STAT NEGATIVE (NEGATIVE); TRICYCLIC ANTIDEPRESSANTS SCRE NEGATIVE (NEGATIVE)
--- NOTE | 2023-01-03 02:15 | ED Respiratory ---
General Chief Complaint: Respiratory Problems Stated Complaint: SMOKES MARIJUANA Nursing Triage Note: Pt called 911 stating was SOB. EMS staff adv Pt was SOB after smoking marijuana and having a "panic attack". EMS adv gaze 4mg zofran, 300 cc saline, and breathing exercises. Pt a/ox4 upon arrival. Source: patient, old records History of Present Illness Date Seen by Provider: Jan 02, 2023 Time Seen by Provider: 23:30 Initial Comments PT ARRIVES VIA EMS FROM HOME PT C/O SUDDEN ONSET OF SEVERE SHORTNESS OF BREATH AFTER SMOKING MARIJUANA--SHE SMOKES MARIJUANA AT LEAST TWICE A DAY SHE C/O CHEST TIGHTNESS DUE TO DIFFICULTY BREATHING EMS COACHED PT ON BREATHING EXERCISES EN ROUTE. C/O NAUSEA--EMS GAVE ZOFRAN 4 MG IV AND 300 ML SALINE PT IS PROFUSELY DIAPHORETIC ON ARRIVAL AND IN SEVERE RESPIRATORY DISTRESS ON ARRIVAL. O2 SAT ON ARRIVAL HERE 88-89% ON ROOM AIR. PT HAS ASTHMA/COPD BUT DOES NOT HAVE HOME O2 SHE STATES SHE HAS NEVER SMOKED REGULAR CIGARETTES, BUT HAS SMOKED MARIJUANA ALL HER LIFE SHE HAS HISTORY OF POLYSUBSTANCE ABUSE AND ALCOHOLISM--SHE STATES SHE "" ONE TIME WHEN SHE WAS SMOKING CRACK COCAINE. SHE HAS USED MULTIPLE OTHER DRUGS IN THE PAST, INCLUDING "SPEED" BUT DENIES METHAMPHETAMINE USE. SHE STATES SHE HAS NOT USED ANYTHING EXCEPT MARIJUANA "FOR YEARS" AND DENIES IV DRUG USE. SHE STATES SHE USED TO DRINK 1-2 GALLONS OF VODKA A WEEK BUT NONE "FOR YEARS" SHE HAS AN INHALER AND NEBULIZER BUT HAS NOT USED THEM TONIGHT SHE HAS HAD COVID VACCINE X2 PCP: [facility] Allergies and Home Medications Allergies Coded Allergies: celecoxib (Verified Allergy, Mild, 03/01/20) doxycycline (Verified Allergy, Unknown, 05/06/21) sulfamethoxazole (Verified Allergy, Unknown, headache, 03/01/20) trimethoprim (Verified Allergy, Unknown, headache, 03/01/20) meloxicam (Verified Adverse Reaction, Unknown, 03/01/20) naproxen (Verified Adverse Reaction, Unknown, 03/01/20) Patient Home Medication List Home Medication List Reviewed: Yes Cefdinir (Cefdinir) 300 Mg Capsule, 300 MG PO BID Prescribed by: TANISHA BARNES on 05/06/21 0202 Dexamethasone (Decadron) 6 Mg Tablet, 6 MG PO DAILY Prescribed by: TANISHA BARNES on 05/06/21 0132 Fluticasone/Salmeterol (Advair 250-50 Diskus) 1 Each Blst.w.dev, 1 EACH IH BID, (Reported) Entered as Reported by: JAREK RAMIREZ on 02/29/20937 Last Action: Reviewed Hydrochlorothiazide (Hydrochlorothiazide) 25 Mg Tablet, 25 MG PO DAILY, (Reported) Entered as Reported by: JAREK RAMIREZ on 02/29/20937 Last Action: Reviewed Levothyroxine Sodium (Levothyroxine Sodium) 50 Mcg Tablet, 50 MCG PO DAILY, (Reported) Entered as Reported by: JAREK RAMIREZ on 02/29/20942 Last Action: Reviewed Losartan Potassium (Losartan Potassium) 50 Mg Tablet, 50 MG PO DAILY Prescribed by: MONTSERRAT SANDS on 02/03/21 0023 Last Action: Reviewed Multivitamin (Multivitamin) 1 Each Tablet, 1 EACH PO DAILY, (Reported) Entered as Reported by: JAREK RAMIREZ on 02/29/20937 Last Action: Reviewed Omeprazole (Omeprazole) 20 Mg Capsule., 20 MG PO BID, (Reported) Entered as Reported by: MAY GORDON on 08/31/17 1243 Last Action: Edited Paroxetine HCl (Paroxetine HCl) 40 Mg Tablet, 60 MG PO DAILY, (Reported) Entered as Reported by: JAREK RAMIREZ on 02/29/20937 Last Action: Edited Tiotropium [place] (Spiriva Respimat 1.25MCG/ACTUATION) 4 Gm Mist.inhal, 2 PUFF IH DAILY, (Reported) Entered as Reported by: JAREK RAMIREZ on 02/29/20942 Last Action: Reviewed Discontinued Medications Diclofenac Sodium (Diclofenac Sodium) 75 Mg Tablet.dr, 75 MG PO BID, (Reported) Discontinued Reason: No Longer Taking Entered as Reported by: JAREK RAMIREZ on 02/29/20942 Last Action: Discontinued Hydrocodone/Acetaminophen (Hydrocodone-Acetamin 5-325 mg) 1 Each Tablet, 1 TAB PO Q6HR PRN for PAIN-SEVERE (8-10) Discontinued Reason: No Longer Taking Prescribed by: KENNETH DUKES on 03/02/20 1129 Last Action: Discontinued Rivaroxaban (Xarelto Starter Pack) 1 Each Tab.ds.pk, 1 EACH PO UD Discontinued Reason: No Longer Taking Prescribed by: TANISHA BARNES on 05/06/21 0149 Last Action: Discontinued Review of Systems Review of Systems Constitutional: see HPI, diaphoresis Respiratory: see HPI, short of breath Cardiovascular: see HPI; No edema Gastrointestinal: see HPI, nausea Musculoskeletal: no symptoms reported Skin: no symptoms reported Psychiatric/Neurological: Anxiety Past Sngelxf-Vqedrv-Zmcadt Hx Patient Social History Tobacco Use?: No Substance use?: Yes Substance type: Marijuana Substance frequency: Daily Alcohol Use?: Yes Immunizations Up To Date Tetanus Booster (TDap): Unknown Influenza Vaccine Up-to-Date: Yes; Up-to-Date First/Initial COVID19 Vaccinat: Jul 2020 Second COVID19 Vaccination Bob: August 2020 Seasonal Allergies Seasonal Allergies: Yes Past Medical History Surgery/Hospitalization HX: COPD, HTN, Surgeries: Yes (abdominal surgical drain) Section, Gallbladder Respiratory: Yes ("RESTRICTIVE LUNG DISEASE" PER PT) Asthma, COPD Currently Using CPAP: No Currently Using BIPAP: No Cardiac: Yes Hypertension Neurological: No Reproductive Disorders: No Genitourinary: No Gastrointestinal: Yes (RETROPERITONEAL ABSCESS DRAINED 02/2020) Gastroesophageal Reflux Musculoskeletal: Yes Arthritis Endocrine: Yes (OBESITY) Hypothyroidsim HEENT: No Cancer: No Psychosocial: Yes (HX OF POLYSUBSTANCE ABUSE) Anxiety, Depression Integumentary: No Blood Disorders: No Family Medical History No Pertinent Family Hx SOCIAL HISTORY: -SMOKING--DENIES USE -ETOH--HISTORY OF ABUSE, CLAIMS NONE FOR YEARS -DRUGS-EXTENSIVE HISTORY OF DRUG USE-- SMOKED CRACK/COCAINE, ACID, SPEED, ETC.--CLAIMS NONE FOR YEARS. DENIES IV USE, BUT DID OVERDOSE ON CRACK COCAINE; SHE CONTINUES TO SMOKE MARIJUANA AT LEAST TWICE A DAY EVERY DAY. PAST SURGICAL HISTORY: - X 1 -CHOLECYSTECTOMY 01/[address] VELASCO -DIAGNOSTIC LAPAROSCOPY AND DRAINAGE OF RETROPERITONEAL ABSCESS 03/01/[address] DUKES Physical Exam Vital Signs - First Documented 01/02/23 01/03/23 23:33 00:13 Pulse 129 Resp 22 B/P (MAP) 121/103 (109) Pulse Ox 94 O2 Delivery Nasal Cannula O2 Flow Rate 4.00 Capillary Refill : Height: 5'4.00" Weight: 232lbs. oz. 105.020724uj; 29.00 BMI Method:Stated General Appearance: severe distress, obese, other (VERY DYSPNEIC, PROFUSELY DIAPHORETIC IN SEVERE DISTRESS ON ARRIVAL) HEENT: PERRL/EOMI, other (EDENTULOUS) Neck: normal inspection Respiratory: respiratory distress, decreased breath sounds, accessory muscle use, other (VERY DYSPNEIC WITH MINIMAL AERATION. ) Cardiovascular: no JVD, tachycardia (HR 130-140 ON ARRIVAL) Gastrointestinal: non tender, soft Extremities: normal inspection, normal capillary refill Neurologic/Psychiatric: distribution associate II-XII nml as tested, no motor/sensory deficits, alert, oriented x 3 Skin: diaphoresis (PROFUSELY ), pallor Focused Exam Sepsis Stage: Septic Shock Possible Source: Unknown Lactate Level 01/03/23 01:36: Lactic Acid Level 2.23*H Time of Focused Exam: 02:00 Respiratory: Normal Breath Sounds, No Accessory Muscle Use, No Respiratory Distress Cardiovascular: Regular Rate, Rhythm Capillary Refill: Less Than 3 Seconds Lactic Acid Level Laboratory Tests Test 01/02/23 23:34 01/03/23 01:36 Lactic Acid Level 9.74 MMOL/L (0.50-2.00) *H 2.23 MMOL/L (0.50-2.00) *H Within 3hrs of presentation: Admin fluids, Admin ABX, Blood cultures prior to ABX's, Focus exam, Lactate level, Vasopressin therapy Progress/Results/Core Measures Suspected Sepsis SIRS Temperature: Pulse: 103 Respiratory Rate: 22 Laboratory Tests 01/02/23 23:34: White Blood Count 14.0H Blood Pressure 82 /65 Mean: 71 01/03/23 01:36: Lactic Acid Level 2.23*H Laboratory Tests 01/02/23 23:34: Creatinine 1.83H, INR Comment 1.1, Platelet Count 450H, Total Bilirubin 0.2 Results/Orders Lab Results Laboratory Tests Test 01/02/23 23:34 01/02/23 23:37 01/02/23 23:38 01/03/23 00:46 Range/Units White Blood Count 14.0 H 4.3-11.0 10^3/uL Red Blood Count 4.40 3.80-5.11 10^6/uL Hemoglobin 12.9 11.5-16.0 g/dL Hematocrit 41 35-52 % Mean Corpuscular Volume 94 80-99 fL Mean Corpuscular Hemoglobin 29 25-34 pg Mean Corpuscular Hemoglobin Concent 31 L 32-36 g/dL Red Cell Distribution Width 12.9 10.0-14.5 % Platelet Count 450 H 130-400 10^3/uL Mean Platelet Volume 9.9 9.0-12.2 fL Immature Granulocyte % (Auto) 1 % Neutrophils (%) (Auto) 45 42-75 % Lymphocytes (%) (Auto) 43 12-44 % Monocytes (%) (Auto) 7 0-12 % Eosinophils (%) (Auto) 5 0-10 % Basophils (%) (Auto) 1 0-10 % Neutrophils # (Auto) 6.2 1.8-7.8 10^3/uL Lymphocytes # (Auto) 6.0 H 1.0-4.0 10^3/uL Monocytes # (Auto) 0.9 0.0-1.0 10^3/uL Eosinophils # (Auto) 0.7 H 0.0-0.3 10^3/uL Basophils # (Auto) 0.1 0.0-0.1 10^3/uL Immature Granulocyte # (Auto) 0.1 0.0-0.1 10^3/uL Prothrombin Time 14.1 12.2-14.7 SEC INR Comment 1.1 0.8-1.4 Activated Partial Thromboplast Time 27 24-35 SEC Sodium Level 139 135-145 MMOL/L Potassium Level 4.0 3.6-5.0 MMOL/L Chloride Level 102 98-107 MMOL/L Carbon Dioxide Level 16 L 21-32 MMOL/L Anion Gap 21 H 5-14 MMOL/L Blood Urea Nitrogen 15 7-18 MG/DL Creatinine 1.83 H 0.60-1.30 MG/DL Estimat Glomerular Filtration Rate 31 BUN/Creatinine Ratio 8 Glucose Level 267 H 70-105 MG/DL Lactic Acid Level 9.74 *H 0.50-2.00 MMOL/L Calcium Level 8.7 8.5-10.1 MG/DL Corrected Calcium 8.7 8.5-10.1 MG/DL Magnesium Level 1.9 1.6-2.4 MG/DL Total Bilirubin 0.2 0.1-1.0 MG/DL Aspartate Amino Transf (AST/SGOT) 43 H 5-34 U/L Alanine Aminotransferase (ALT/SGPT) 28 0-55 U/L Alkaline Phosphatase 122 40-136 U/L Troponin I < 0.028 <0.028 NG/ML B-Type Natriuretic Peptide 128.1 H <100.0 PG/ML Total Protein 7.0 6.4-8.2 GM/DL Albumin 4.0 3.2-4.5 GM/DL Free Thyroxine 0.90 0.70-1.48 NG/DL TSH [place] Testing 5.18 H 0.35-4.94 UIU/ML Glucometer 262 H 70-110 MG/DL D-Dimer 0.72 H 0.00-0.49 UG/ML Influenza Type A (RT-PCR) Not Detected Not Detecte Influenza Type B (RT-PCR) Not Detected Not Detecte SARS-CoV-2 RNA (RT-PCR) Not Detected Not Detecte Test 01/03/23 00:50 01/03/23 01:36 Range/Units Urine Color YELLOW Urine Clarity CLEAR Urine pH 6.0 5-9 Urine Specific Ronda >=1.030 1.016-1.022 Urine Protein 2+ H NEGATIVE Urine Glucose (UA) NEGATIVE NEGATIVE Urine Ketones NEGATIVE NEGATIVE Urine Nitrite NEGATIVE NEGATIVE Urine Bilirubin NEGATIVE NEGATIVE Urine Urobilinogen 1.0 < = 1.0 MG/DL Urine Leukocyte Esterase NEGATIVE NEGATIVE Urine RBC (Auto) 1+ H NEGATIVE Urine RBC 2-5 H /HPF Urine WBC 0-2 /HPF Urine Squamous Epithelial Cells 0-2 /HPF Urine Crystals NONE /LPF Urine Bacteria FEW H /HPF Urine Casts PRESENT /LPF Urine Hyaline Casts 0-2 H /LPF Urine Mucus NEGATIVE /LPF Urine Culture Indicated NO Urine Opiates Screen NEGATIVE NEGATIVE Urine Oxycodone Screen NEGATIVE NEGATIVE Urine Methadone Screen NEGATIVE NEGATIVE Urine Propoxyphene Screen NEGATIVE NEGATIVE Urine Barbiturates Screen NEGATIVE NEGATIVE Ur Tricyclic Antidepressants Screen NEGATIVE NEGATIVE Urine Phencyclidine Screen NEGATIVE NEGATIVE Urine Amphetamines Screen NEGATIVE NEGATIVE Urine Methamphetamines Screen NEGATIVE NEGATIVE Urine Benzodiazepines Screen NEGATIVE NEGATIVE Urine Cocaine Screen NEGATIVE NEGATIVE Urine Cannabinoids Screen POSITIVE H NEGATIVE Urine Legionella pneumophilia Ag Negative Lactic Acid Level 2.23 *H 0.50-2.00 MMOL/L My Orders Orders - TANISHA BARNES DO Ed Iv/Invasive Line Start (01/02/23 23:34) Ekg Tracing (01/02/23 23:34) O2 (01/02/23 23:34) Monitor-Rhythm Ecg Trace Only (01/02/23 23:34) Bnp Joseph (01/02/23 23:34) Cbc With Automated Diff (01/02/23 23:34) Comprehensive Metabolic Panel (01/02/23 23:34) Drug Screen Stat (Urine) (01/02/23:34) Magnesium (01/02/23:34) Protime With Inr (01/02/23:34) Partial Thromboplastin Time (01/02/23 23:34) Thyroid Analyzer (01/02/23 23:34) Ua Culture If Indicated (01/02/23 23:34) Troponin I [place] (01/02/23 23:34) Chest 1 View, Ap/Pa Only (01/02/23 23:34) Ed Iv/Invasive Line Start (01/02/23 23:34) Lactated Ringers (Lr 1000 Ml Iv Solution (01/02/23 23:45) Albuterol/Ipra Inhalation Soln (Duoneb I (01/02/23 23:45) Dexamethasone Injection (Decadron Injec (01/02/23 23:45) Rt Request For Service (01/02/23 23:34) Dexamethasone Injection (Decadron Inje (01/02/23 23:45) Svn Small Volume Nebulizer (01/02/23 23:34) Adenosine Injection (Adenosine Injection (01/02/23 23:48) Ondansetron Injection (Zofran Injectio (01/02/23 23:49) Ekg Tracing (01/02/23 23:57) Free T4 (Free Thyroxine) (01/02/23 23:34) Ekg Tracing (01/03/23 00:28) Catheter(Urinary) Insert & Ass 03,15 (01/03/23 00:28) Arterial Blood Gas (01/03/23 00:28) Lidocaine 2% (Urojet) (Xylocaine Urojet) (01/03/23 00:30) Covid 19 Inhouse Test (01/03/23 00:41) Influenza A And B By Pcr (01/03/23 00:41) Ed Iv/Invasive Line Start (01/03/23 00:42) Ns Iv 1000 Ml (Sodium Chloride 0.9%) (01/03/23 00:45) Arterial Blood Draw - Obtain (01/03/23 ) Cefepime Injection (Cefepime Injection) (01/03/23 01:00) Fibrin Degradation Products (01/03/23 00:52) Blood Culture (01/03/23 00:56) Sputum Culture (01/03/23 00:56) Urine Culture (01/03/23 00:56) Ed Iv/Invasive Line Start (01/03/23 00:56) Vital Signs Adult Sepsis Patie Q15M (01/03/23 00:56) Remove Rings In Anticipation O (01/03/23 00:56) Lactic Acid Analyzer (01/03/23 00:56) Ns Iv 1000 Ml (Sodium Chloride 0.9%) (01/03/23 01:00) Aspirin Chewable Tablet (Aspirin Chewabl (01/03/23 01:00) Enoxaparin Injection (Lovenox Injection) (01/03/23 01:00) Norepinephrine 8 Mg/250 Ml (Norepinephri (01/03/23 01:00) Aspirin Chewable Tablet (Aspirin Chewabl (01/03/23 01:10) Ct Chasity Chest/Noang Abd-Pelv W (01/03/23 01:22) Ondansetron Injection (Zofran Injectio (01/03/23 02:30) Iohexol Injection (Omnipaque 350 Mg/Ml 1 (01/03/23 02:45) Received Contrast (Hold Metformin- Contr (01/03/23 02:45) Ns (Ivpb) 100 Ml (Sodium Chloride 0.9% 1 (01/03/23 02:45) Troponin I [place] (01/03/23 02:36) Arterial Blood Gas (01/03/23 02:36) Medications Given in ED Vital Signs/I&O 01/02/23 01/02/23 01/03/23 01/03/23 23:33 23:38 00:13 00:21 Pulse 129 Resp 22 B/P (MAP) 121/103 (109) Pulse Ox 94 94 98 O2 Delivery Nasal Cannula Nasal Cannula O2 Flow Rate 4.00 01/03/23 01:59 Pulse 103 B/P (MAP) 82/65 7/29/23 00:00 Intake Total 300 ml Balance 300 ml Capillary Refill : Blood Pressure Mean: 71 Progress Note : Progress Note PT IN SEVERE DISTRESS ON ARRIVAL VITALS ON ARRIVAL: TEMP 98, HR 130'S, RR 30'S, BP 121/103, O2 SAT 94% ON 2L/NC GIVEN: -HOUR LONG NEBULIZER TREATMENT -DECADRON IV -ANTIBIOTICS -IV FLUIDS -LEVOPHED -ASPIRIN -LOVENOX AFTER DISCUSSING WITH DR. SALDANA, HE ADVISED ADENOSINE TO SLOW HEART RATE, BUT PT'S HEART RATE DOWN TO LOW 100'S WITHOUT TREATMENT, SO ADENOSINE WAS HELD. PT'S BLOOD PRESSURE BEGAN TO DROP INTO 70'S SYSTOLIC--IV FLUIDS GIVEN WITHOUT SIGNIFICANT IMPROVEMENT AND PT STARTED ON LEVOPHED AFTER DISCUSSING WITH DR. SALDANA PT WITH SIGNIFICANT IMPROVEMENT AFTER THE ABOVE. PT IS SITTING UP AND IS MAINTAINING O2 SATS > 94% ON O2 AT 4L/NC MUCH INCREASED AERATION AND PT IS NO LONGER DYSPNEIC, AND NO LONGER DIAPHORETIC. SHE IS ABLE TO TALK IN FULL SENTENCES. SHE DOES CONTINUE TO COMPLAIN OF TIGHTNESS IN HER CHEST. VITALS STABLE AT TIME OF ADMIT. BLOOD PRESSURE > 100 SYSTOLIC, AND HEART RATE < 100. NO FEVER NOTED IN ER PERTINENT LABS: -CBC WITH WBC 14.0, HGB 12.9, PLT 450,000 -PT 14.1, PTT 27, INR 1.1 -D-DIMER 0.72 -CMP WITH NA 139, K 4.O, CO2 16, BUN 15, CR 1.83, GLU 267 -TROPONIN IS NEGATIVE, BNP 128 -LACTIC ACID 9.74 -TSH 5.18 -COVID AND FLU ARE NEGATIVE -UDS POSITIVE FOR THC, ETOH NEGATIVE CXR WITH MILD BILBASILAR ATELECTASIS CT WITH PROBABLE INTERSTITIAL EDEMA. NO EVIDENCE OF P.E. 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 REPEAT EKG'S WITH SLOWER RATE, P WAVES VISIBLE, RBBB REMAINS UNABLE TO OBTAIN ABG'S DISCUSSED TEST RESULTS, NEED FOR ADMIT AND PT IS AGREEABLE TO PLAN. DISCUSSED CODE STATUS AND PT WISHES TO BE A FULL CODE. REVIEWED PRIOR RECORDS, INCLUDING ER VISITS, ADMITS/H&P'S/CONSULTS/DISCHARGE SUMMARIES, TESTS/PROCEDURES COMPLEX MANAGEMENT DUE TO MULTIPLE ISSUES: PT IS IN SHOCK--POSSIBLE SEPTIC SHOCK, BUT ALSO SUSPECT CARDIOGENIC SHOCK WELL. ECG Initial ECG Impression Date: Jan 02, 2023 Initial ECG Impression Time: 23:38 Initial ECG Rate: 129 Initial ECG Rhythm: SVT (WITH RBBB, LAFB, ABNORMAL T-WAVES) Initial ECG Intervals [place] 198 QRS 138 QT/QTC 330/406 Initial ECG Comparisson: Changed (CHANGED FROM NORMAL EKG IN 2018) Comment INTERPRETED BY ME EKG : EKG Time: 00:00 Rate: 111 Rhythm: S.Tach Intervals [place] 133 QRS 141 QT/QTC 305/371 Comment EKG AT 0039: RATE 101, SINUS TACH WITH FIRST DEGREE AV BLOCK. RBBB, LAFB. NON-SPECIFIC T-WAVES. [place] 106, QRS 129, QT/QTC 353/412. NO SIGNIFICANT CHANGE FROM PREVIOUS EKG AT 0330: RATE 102, JUNCTIONAL TACHYCARDIA WITH SOME P-WAVES, RBBB, LAFB, NON-SPECIFIC T WAVES. SIMILAR TO PREVIOUS BUT SOME COMPLEXES WITHOUT DEFINITE P WAVES; [place] 106, QRS 129, QT, QTC 353/412. ALL INTERPRETED BY ME Diagnostic Imaging Comments CXR--MILD BIBASILAR ATELECTASIS, PENDING RADIOLOGIST REVIEW CT CHEST ANGIOGRAM / ABDOMEN-PELVIS--PER [facility] VIA FAX AT 0300 -NO EVIDENCE OF P.E. -INTERLOBULAR SEPTAL THICKENING BILATERAL LUNGS. PROBABLY INTERSTITIAL EDEMA -ENLARGED MAIN PULMONARY ARTERY, INCREASED SINCE PRIOR -PERIPANCREATIC FAT STRANDING. SUSPICIOUS FOR ACUTE PANCREATITIS -PERIPORTAL EDEMA AND MINIMAL PERIPORTAL FAT STRANDING, NON-SPECIFIC. Reviewed: Reviewed by Me Critical Care Note Critical Care Start Time: 23:30 Total Time (minutes) GREATER THAN 2 HOURS Departure Communication (Admissions) 1654--SPOKE WITH DR. SALDANA, AND SENT IMAGE OF EKG. HE ADVISES ADENOSINE AND CALL HIM BACK WITH UPDATE. 005--SPOKE WITH DR. SALDANA AND UPDATE GIVEN. HE ADVISES TO PROCEED WITH LEVOPHED AND FULL ANTICOAGULATION WITH ASPIRIN AND LOVENOX AND ALSO TREAT FOR POSSIBLE SEPTIC SHOCK 0244--SPOKE WITH DR. HUNTER, HOSPITALIST FOR [facility]. ACCEPTS PT FOR ADMIT. Impression Primary Impression: Septic shock Additional Impressions: Acute on chronic respiratory failure with hypoxia Abnormal EKG Addiction, marijuana COPD exacerbation HX OF HYPERTENSION Obesity History of alcoholism HX OF POLYSUBSTANCE ABUSE Chest pain Acute kidney injury Hyperglycemia Elevated TSH SUSPECTED CARDIOGENIC SHOCK Disposition: ADMITTED INPATIENT Condition: Improved Admissions Decision to Admit Reason: Admit from ER (General) Decision to Admit/Date: Jan 03, 2023 Time/Decision to Admit Time: 02:45 Departure-Patient Inst. Referrals: [facility] (PCP/Family) Primary Care Physician TANISHA BARNES DO Jan 03, 2023 02:15
[2023-01-03] MEDS ORDERED: ONDANSETRON 4 MG/2 ML (SDV) Z0FRAN IVP ONE (02:30)
[2023-01-03] MEDS ORDERED: IOHEXOL 350 MG/ML 100 ML (OMNIPAQUE 350) VIAL IV ONE (02:45)
[2023-01-03] MEDS ORDERED: HOLD METFORMIN - RECEIVED CONTRAST 20 ML VIAL IV SCH (02:45)
[2023-01-03] MEDS ORDERED: NS 100 ML (IVPB) BAG IV ONE (02:45)
[2023-01-03 03:52] LABS: AMYLASE 25 U/L (25-125)
[2023-01-03 04:01] LABS: LIPASE 48 U/L (8-78)
[2023-01-03 04:11] VITALS: BP 96/73
[2023-01-03 04:19] VITALS: BP 82/65
--- NOTE | 2023-01-03 04:22 | Tele-ICU Consult ---
History of Present Illness History of Present Illness Date Seen by Provider: Jan 03, 2023 Time Seen by Provider: 04:20 History of Present Illness (Tele-ICU Physician , consultation Note ) Service provided via interactive audio and video telecommunications E-CARE system to a patient admitted to ICU bed in [facility]. Patient is seen today due to persistent need of ICU care Available chart/ vitals / labs / Images reviewed Video assessment done using teleICU camera, rest of exam as per RN She is a 62-year-old female with past medical history of chronic obstructive pulmonary disease due to marijuana abuse, previous history of alcohol abuse and polysubstance abuse today apparently she was smoking marijuana and all of a sudden she became short of breath and diaphoretic and she came to the emergency room where she is in respiratory distress and put on a BiPAP ventilation. She is also found to be in lactic acidosis requiring fluid boluses. Denies any history of fever. Chest x-ray did not show any acute changes. CT angiogram of the chest are done which has not been read yet. However on gross examination no filling defects were seen. Eventually her BiPAP weaned off and currently she is tolerating oxygen with nasal cannula. Denies any chest pain at this time. Impression 1. Acute hypoxic respiratory failure 2. COPD exacerbation due to marijuana abuse 3. Chronic marijuana abuse history 4. Previous history of alcohol and polysubstance abuse. Recommendation 1. Continue supplemental oxygen 2. IV steroids 3. Hydration with IV fluids 4. Nebulizer treatments. 5. DVT prophylaxis. Coordination of care with primary care physician and bedside consultants. I am remotely monitoring this patient from Tele icu station in [place]. I am unable to do the bedside exam, and history/physical and pertinent information is taken from other notes in the computer and bedside staff. Certain portions of this document may have been dictated utilizing voice recognition technology such as [employer]. Inherent to this technology, typographical and grammatical errors may exist. As much as I am diligent to identify and correct to these mistakes, some errors may remain in the document. Critical care time devoted to this patient today is approximately is 32 minutes-- Allergies and Home Medications Allergies Coded Allergies: celecoxib (Verified Allergy, Mild, 03/01/20) doxycycline (Verified Allergy, Unknown, 05/06/21) sulfamethoxazole (Verified Allergy, Unknown, headache, 03/01/20) trimethoprim (Verified Allergy, Unknown, headache, 03/01/20) meloxicam (Verified Adverse Reaction, Unknown, 03/01/20) naproxen (Verified Adverse Reaction, Unknown, 03/01/20) Home Medications Cefdinir 300 Mg Capsule, 300 MG PO BID Prescribed by: TANISHA BARNES on 05/06/21 0202 Dexamethasone 6 Mg Tablet, 6 MG PO DAILY Prescribed by: TANISHA BARNES on 05/06/21 0132 Diclofenac Sodium 75 Mg Tablet.dr, 75 MG PO BID, (Reported) Fluticasone/Salmeterol 1 Each Blst.w.dev, 1 EACH IH BID, (Reported) Hydrochlorothiazide 25 Mg Tablet, 25 MG PO DAILY, (Reported) Hydrocodone/Acetaminophen 1 Each Tablet, 1 TAB PO Q6HR PRN for PAIN-SEVERE (8- 10) Prescribed by: KENNETH DUKES on 03/02/20 1129 Levothyroxine Sodium 50 Mcg Tablet, 50 MCG PO DAILY, (Reported) Losartan Potassium 50 Mg Tablet, 50 MG PO DAILY Prescribed by: MONTSERRAT SANDS on 02/03/21 0023 Multivitamin 1 Each Tablet, 1 EACH PO DAILY, (Reported) Omeprazole 20 Mg Capsule.dr, 20 MG PO DAILY, (Reported) Paroxetine HCl 40 Mg Tablet, 40 MG PO HS, (Reported) Rivaroxaban 1 Each Tab.ds.pk, 1 EACH PO UD 15mg by mouth twice daily x 21 days then 20mg by mouth daily Prescribed by: TANISHA BARNES on 05/06/21 0149 Tiotropium [place] 4 Gm Mist.inhal, 2 PUFF IH DAILY, (Reported) Past Medical/Social/Family Hx Patient Social History Tobacco Use?: No Smoking Status: Unknown if Ever Smoked Substance use?: Yes Substance type: Marijuana Substance frequency: Daily Alcohol Use?: No Pt stated abuse/neglect: No Immunizations Up To Date Influenza Vaccine Up-to-Date: Yes; Up-to-Date First/Initial COVID19 Vaccinat: Jul 2020 Second COVID19 Vaccination Bob: August 2020 Tetanus Booster (TDap): Unknown Current Status status: No status: No Communicates: Verbally Primary Language: Cypriot Preferred Spoken Language: Cypriot Is interpretation needed?: No Implanted or Applied Medical D: None Past Medical History past medical history 1. Hypertension 2. Asthma 3. Depression Past surgical history 1. section Family Medical History Family Hx: SOCIAL HISTORY: -SMOKING--DENIES USE -ETOH--HISTORY OF ABUSE, CLAIMS NONE FOR YEARS -DRUGS-EXTENSIVE HISTORY OF DRUG USE-- SMOKED CRACK/COCAINE, ACID, SPEED, ETC.--CLAIMS NONE FOR YEARS. DENIES IV USE, BUT DID OVERDOSE ON CRACK COCAINE; SHE CONTINUES TO SMOKE MARIJUANA AT LEAST TWICE A DAY EVERY DAY. PAST SURGICAL HISTORY: - X 1 -CHOLECYSTECTOMY 01/[address] VELASCO -DIAGNOSTIC LAPAROSCOPY AND DRAINAGE OF RETROPERITONEAL ABSCESS 03/01/[address] DUKES Review of Systems Constitutional: see HPI, diaphoresis, other (shortness of breath) Focused Exam Lactate Level 01/02/23 23:34: Lactic Acid Level 9.74*H 01/03/23 01:36: Lactic Acid Level 2.23*H 01/03/23 03:19: Lactic Acid Level 1.29 Height, Weight, BMI Height: 5'4.00" Weight: 232lbs. oz. 105.788946do; 35.62 BMI Method:Stated Lactic Acid Level Laboratory Tests Test 01/03/23 01:36 01/03/23 03:19 Lactic Acid Level 2.23 MMOL/L (0.50-2.00) *H 1.29 MMOL/L (0.50-2.00) Exam Exam Patient acknowledged, consented, and participated in this virtual visit which was conducted using real time audio/video Vital Signs Date Time Temp Pulse Resp B/P (MAP) Pulse Ox O2 Delivery O2 Flow Rate FiO2 01/03/23 01:59 103 82/65 01/03/23 00:21 Nasal Cannula 01/03/23 00:13 98 Nasal Cannula 4.00 01/02/23 23:38 94 01/02/23 23:33 129 22 121/103 (109) 94 I & O 01/03/23 07:00 Intake Total 2350 ml Balance 2350 ml Height & Weight Height: 5'4.00" Weight: 232lbs. oz. 105.849537ia; 35.62 BMI Method:Stated General Appearance: Anxious Results Lab Laboratory Tests 01/02/23 23:34 Assessment/Plan Assessment/Plan as above Critical Care: Critically Ill Patient Time spent with patient (mins): 32 XANDER SCHMID MD Jan 03, 2023 04:22
[2023-01-03] MEDS ORDERED: NS IV 500 ML 500 ML IV PRN (04:30)
[2023-01-03] MEDS ORDERED: ACETAMINOPHEN 500 MG TABLET PO PRN (04:45)
[2023-01-03] MEDS ORDERED: ONDANSETRON 4 MG/2 ML (SDV) Z0FRAN IV PRN (04:45)
[2023-01-03] MEDS ORDERED: EPINEPHrine 1 MG INJECTION 4 MG in NS (IVPB) 250 ML 248 ML IV SCH (04:45)
[2023-01-03] MEDS: NOREPINEPHRINE 8 MG/250 ML 250 ML IV SCH ×2 (04:45→08:18)
[2023-01-03] MEDS ORDERED: RT-ALBUTEROL/IPRATROPIUM 3 ML (DUONEB) VIAL INH PRN (04:45)
[2023-01-03] MEDS ORDERED: ONDANSETRON 4 MG/2 ML (SDV) Z0FRAN IVP PRN (04:45)
[2023-01-03] MEDS ORDERED: NS IV 1000 ML 1,000 ML ONE ×2 (04:48→08:41)
[2023-01-03 04:49] LABS: CHOLESTEROL 159 MG/DL (< 200); HDL CHOLESTEROL 50 MG/DL (40-60); TRIGLYCERIDES 68 MG/DL (<150); VLDL CHOLESTEROL 14 MG/DL (5-40)
[2023-01-03] MEDS: VASOPRESSIN INJECTION 20 UNIT in NS (IVPB) 100 ML 100 ML IV SCH ×2 (05:00→16:34)
[2023-01-03] MEDS: NS IV 1000 ML 1,000 ML IV SCH ×7 (05:00→21:17)
[2023-01-03] MEDS: RT-ALBUTEROL/IPRATROPIUM 3 ML (DUONEB) VIAL INH SCH ×5 (05:47→22:18)
[2023-01-03] MEDS ORDERED: dexAMETHasone INJECTION 20 MG in NS (IVPB) 50 ML 50 ML IV SCH (06:00)
[2023-01-03] MEDS: POTASSIUM CL 10MEQ/50ML IVPB 50 ML IV SCH (06:15)
[2023-01-03] MEDS: MAGNESIUM 1 GM/100 ML IVPB 100 ML IV SCH ×3 (06:15→08:04)
[2023-01-03] MEDS: KCL 20 MEQ TAB (K-DUR) PO SCH (06:15)
--- NOTE | 2023-01-03 06:29 | Diagnostic Imaging Report ---
EXAMINATION: Chest 1 view HISTORY: DYSPNEA, HYPOXIA COMPARISON: 05/06/2021 FINDINGS: Heart size and pulmonary vasculature are normal. Mild interstitial opacities are present in the lung bases. There is a new left upper lobe pulmonary nodule measuring up to 2.4 cm. No pleural effusion or pneumothorax. Degenerative changes of the thoracic spine. Osseous structures are otherwise intact. IMPRESSION: 1. Mild bibasilar interstitial opacities could represent atelectasis, edema, or pneumonia. 2. New 2.4 cm opacity in the left upper lobe. No focal nodule is seen on same-day CT of the chest suggesting external or possibly osseous process. Dictated by: Dictated on workstation # [id number]
--- NOTE | 2023-01-03 06:45 | History & Physical-Hospitalist ---
History of Present Illness HPI/Chief Complaint CC: Dyspnea HPI: This is a 62yoWF clinic patient of [facility] who has hypothyroidism and HTN with polysubstance abuse who presented to the ER with acute hypoxic respiratory failure and hypotension and has been found to have cardiomyopathy and cardiac cath revealed no obstructive disease. Currently she is drowsy and currently on Dobumtamine. Source: patient Exam Limitations: clinical condition Date Seen 01/03/23 Time Seen by a Provider: 11:00 Attending Physician [facility] PCP Admitting Physician: Geeta Salazar DO Attending Physician: Geeta Salazar DO Referring Physician Date of Admission Jan 03, 2023 at 02:56 Home Medications & Allergies Home Medications Reviewed patient Home Medication Reconciliation performed by pharmacy medication reconciliations optical coating technician and/or nursing. Patients Allergies have been reviewed. Allergies Allergies Coded Allergies celecoxib (Verified Allergy, Mild, 03/01/20) doxycycline (Verified Allergy, Unknown, 05/06/21) sulfamethoxazole (Verified Allergy, Unknown, headache, 03/01/20) trimethoprim (Verified Allergy, Unknown, headache, 03/01/20) meloxicam (Verified Adverse Reaction, Unknown, 03/01/20) naproxen (Verified Adverse Reaction, Unknown, 03/01/20) Past Aglmbfu-Itbbkw-Kqvyqk Hx Patient Social History Marrital Status: single Employed/Student: unemployed Tobacco Use?: No Smoking Status: Unknown if Ever Smoked Substance use?: Yes Substance type: Marijuana Substance frequency: Daily Alcohol Use?: No Pt feels they are or have been: No Immunizations Up To Date First/Initial COVID19 Vaccinat: Jul 2020 Second COVID19 Vaccination Bob: August 2020 Tetanus Booster (TDap): Unknown Seasonal Allergies Seasonal Allergies: Yes Current Status status: No status: No Communicates: Verbally Primary Language: Ghanaian Preferred Spoken Language: Ghanaian Is interpretation needed?: No Implanted or Applied Medical D: None Past Medical History Surgeries: Section, Gallbladder Asthma Currently Using CPAP: No Currently Using BIPAP: No Hypertension Gastroesophageal Reflux Arthritis Hypothyroidsim Anxiety, Depression Blood Disorders: No past medical history 1. Hypertension 2. Asthma 3. Depression Past surgical history 1. section Family Medical History No Pertinent Family Hx SOCIAL HISTORY: -SMOKING--DENIES USE -ETOH--HISTORY OF ABUSE, CLAIMS NONE FOR YEARS -DRUGS-EXTENSIVE HISTORY OF DRUG USE-- SMOKED CRACK/COCAINE, ACID, SPEED, ETC.--CLAIMS NONE FOR YEARS. DENIES IV USE, BUT DID OVERDOSE ON CRACK COCAINE; SHE CONTINUES TO SMOKE MARIJUANA AT LEAST TWICE A DAY EVERY DAY. PAST SURGICAL HISTORY: - X 1 -CHOLECYSTECTOMY 01/[address] VELASCO -DIAGNOSTIC LAPAROSCOPY AND DRAINAGE OF RETROPERITONEAL ABSCESS 03/01/[address] DUKES Review of Systems Constitutional: see HPI, malaise, weakness Respiratory: dyspnea on exertion Cardiovascular: no symptoms reported Physical Exam Physical Exam Vital Signs Vital Signs - First Documented 01/02/23 01/03/23 01/03/23 01/03/23 23:33 00:13 04:11 04:19 Temp 36.2 Pulse 129 Resp 22 B/P (MAP) 121/103 (109) Pulse Ox 94 O2 Delivery Nasal Cannula O2 Flow Rate 4.00 FiO2 28 Capillary Refill : Less Than 3 Seconds Height, Weight, BMI Height: 5'4.00" Weight: 232lbs. oz. 105.080290jt; 35.62 BMI Method:Stated General Appearance: No Apparent Distress, Chronically ill Respiratory: Lungs Clear, Normal Breath Sounds Gastrointestinal: Soft Neurologic/Psychiatric: Alert, Depressed Affect, Disoriented Results Results/Procedures Labs Laboratory Tests 01/02/23 23:34 Patient resulted labs reviewed. Assessment/Plan Admission Diagnosis Assessment: Acute hypoxic respiratory failure Cardiogenic shock, improved after IV fluid and Levophed now placed on Dobutamine Lactic acidosis likely due to shock Non-ischemic cardiomyopathy Acute non-ST elevation myocardial infarction, had elevation in troponin-cath revealed no obstructive CAD EKG with right bundle branch block Diabetes mellitus Hypothyroidism THC use ETOH abuse Hypothyroidism HTN as outpatient Plan: ICU Dobutamine IVF Monitor closely Admission Status: Inpatient Order (span 2 midnights) Reason for Inpatient Admission: cardiogenic shock GEETA SALAZAR DO Jan 03, 2023 06:45
--- NOTE | 2023-01-03 07:00 | Diagnostic Imaging Report ---
EXAMINATION: CT angiography of the chest, CT of the abdomen and pelvis. TECHNIQUE: Contrast enhanced thin section helical images were obtained through the chest, abdomen and pelvis with intravenous contrast timed for the optimal opacification of the arterial structures of the chest per CTA protocol. Post-processing, reconstructions and interpretation of angiographic images of the vessels was performed. 3D MIP reconstructions were performed and reviewed. All CT scans use one or more of the following dose optimizing techniques: automated exposure control, MA and/or KvP adjustment based on a patient size and exam type, or iterative reconstruction. HISTORY: Dyspnea, hypoxia, abdominal pain COMPARISON: 05/06/2021 FINDINGS: Vascular: There are no filling defects within the pulmonary arteries. There is mild enlargement of the main pulmonary artery which can be seen with pulmonary arterial hypertension. The thoracic aorta is normal in caliber. Thyroid: The thyroid is normal. Mediastinum: Heart size is normal without significant pericardial effusion. No suspicious lymphadenopathy. Lungs and airways: The lungs are clear without consolidation, pleural effusion, or pneumothorax. Mild groundglass opacities and septal thickening within the lungs. The airways are normal. Solid organs: The liver is normal without focal lesion. There is mild periportal edema which is nonspecific. The gallbladder is surgically absent. There is no biliary ductal dilation. There is mild peripancreatic inflammatory stranding. Spleen is normal. Adrenal glands are normal. The kidneys are normal without hydronephrosis. Bowel: There is a small hiatal hernia present. No bowel obstruction. The colon is normal. The appendix is normal. Peritoneum: There is no intraperitoneal free fluid or free air. No suspicious lymphadenopathy. Vasculature: Normal without aneurysm. Musculoskeletal: Degenerative changes of the spine without suspicious osseous lesion or compression fracture. Small fat-containing left inguinal hernia. There is a right inguinal hernia containing a few loops of small bowel without obstruction. Pelvis: The uterus and adnexa are normal. Lugo catheter and intraluminal air within the urinary bladder. IMPRESSION: 1. No findings of pulmonary embolus or other acute abnormality in the chest. 2. Mild pancreatic inflammatory stranding which can be seen with acute pancreatitis in the appropriate clinical setting. 3. Agree with preliminary interpretation. Dictated by: Dictated on workstation # [id number]
--- NOTE | 2023-01-03 08:11 | Tele-ICU Progress Note ---
Subjective Date Seen by a Provider: Jan 03, 2023 Time Seen by a Provider: 08:04 Subjective/Events-last exam Admitted earlier this am after AECOPD while smoking marijuana Now dong better witth SpO2 94% on 2 lpm NC Was c/o of chest heaviness, trop was normal then 1.24, going to CCL for evaluation Getting IV Cefepime, albuterol, one dose of IV Decadron LA at first was 9.74, now down to 2.33 CXR CTA showed no pulm emb, mild ground glass opacities, suggested pancreatitis but lipase is normal Was on levophed, now off Sepsis Event Evaluation Height, Weight, BMI Height: 5'4.00" Weight: 232lbs. oz. 105.143936ag; 35.62 BMI Method:Stated Focused Exam Lactate Level 01/02/23 23:34: Lactic Acid Level 9.74*H 01/03/23 01:36: Lactic Acid Level 2.23*H 01/03/23 03:19: Lactic Acid Level 1.29 Exam Exam Patient acknowledged, consented, and participated in this virtual visit which was conducted using real time audio/video Vital Signs Date Time Temp Pulse Resp B/P (MAP) Pulse Ox O2 Delivery O2 Flow Rate FiO2 01/03/23 07:57 36.3 01/03/23 07:00 98 21 104/85 (91) 96 Nasal Cannula 2.00 01/03/23 07:00 93 01/03/23 06:00 98 23 100/82 (88) 95 Nasal Cannula 2.00 01/03/23 05:48 97 Nasal Cannula 3.00 01/03/23 05:30 105 17 103/82 (89) 97 Nasal Cannula 2.00 01/03/23 05:00 97 28 117/69 (85) 96 Nasal Cannula 2.00 01/03/23 05:00 104 96/73 01/03/23 04:56 96 01/03/23 04:45 98 100/82 01/03/23 04:35 97 Nasal Cannula 2.00 01/03/23 04:33 36.2 104 14 96/73 (81) 98 Nasal Cannula 2.00 01/03/23 04:19 103 98 28 01/03/23 04:15 96 23 111/73 (86) 96 Nasal Cannula 2.00 01/03/23 04:11 36.2 106 14 96/73 (81) 96 Nasal Cannula 2.00 01/03/23 04:00 101 18 94/71 (79) 93 Nasal Cannula 2.00 01/03/23 01:59 103 82/65 01/03/23 00:21 Nasal Cannula 01/03/23 00:13 98 Nasal Cannula 4.00 01/02/23 23:38 94 01/02/23 23:33 129 22 121/103 (109) 94 I & O 01/03/23 06:59 Intake Total 2502 ml Output Total 300 ml Balance 2202 ml Height & Weight Height: 5'4.00" Weight: 232lbs. oz. 105.598135yf; 35.62 BMI Method:Stated General Appearance: No Apparent Distress, Anxious Respiratory: Decreased Breath Sounds, Rhonci Cardiovascular: Regular Rate, Rhythm Capillary Refill: Less Than 3 Seconds Gastrointestinal: normal bowel sounds, non tender, soft Extremity: No Pedal Edema, Pedal Edema (trace bilateral edema) Results Lab Laboratory Tests 01/02/23 23:34 Assessment/Plan Assessment/Plan AECOD, continue on current meds, would give tapering dose of steroids Hx of polysustance abuse, watch for withdrawal, UDS + for cannibinoids Critical Care: Critically Ill Patient Time spent with patient (mins): 20 DENILSON TALBERT MD Jan 03, 2023 08:10
--- NOTE | 2023-01-03 08:35 | Consultation-Cardiology ---
HPI-Cardiology Cardiology Consultation Date of Consultation 01/03/23 Date of Admission Time Seen by Provider: 08:31 Indication: Shortness of breath HPI 62-year-old lady with no significant past history, smokes marijuana. Had an episode of sudden onset shortness of breath and sinus tachycardia, came into the emergency room, noted to have new onset right bundle branch block and left anterior fascicular block. Heart rate improved after improvement of oxygenation. She denied any chest pain. Denied any palpitation, denied any previous cardiac history, she was noted to have elevation in troponin level. On admission patient was hypotensive, received boluses of IV fluid and started on Levophed. Home Medications & Allergies Allergies: Coded Allergies: celecoxib (Verified Allergy, Mild, 03/01/20) doxycycline (Verified Allergy, Unknown, 05/06/21) sulfamethoxazole (Verified Allergy, Unknown, headache, 03/01/20) trimethoprim (Verified Allergy, Unknown, headache, 03/01/20) meloxicam (Verified Adverse Reaction, Unknown, 03/01/20) naproxen (Verified Adverse Reaction, Unknown, 03/01/20) Home Medication List Reviewed: Yes YGH-Prssik-Fpaapr Hx Patient Social History Marital Status: Employed/Student: employed Smoking Status: Unknown if Ever Smoked 2nd Hand Smoke Exposure: No Recent Hopitalizations: No Alcohol Use?: No Substance type: Marijuana Immunizations Up To Date Tetanus Booster (TDap): Unknown Past Medical History Discussed below Family Medical History Significant Family History: No Pertinent Family Hx Review of Systems-General Review of Systems Constitutional: see HPI, diaphoresis, malaise, other (shortness of breath) EENTM: see HPI, no symptoms reported Respiratory: see HPI; No cough, No dyspnea on exertion, No hemoptysis, No orthopnea, No phlegm; short of breath; No stridor, No wheezing, No other Cardiovascular: see HPI; No chest pain, No edema, No Hx of Intervention, No palpitations, No syncope, No vascular heart diseas, No other Gastrointestinal: see HPI, nausea Genitourinary: no symptoms reported, see HPI Musculoskeletal: no symptoms reported Skin: no symptoms reported Psychiatric/Neurological: Anxiety Reviewed Test Results Reviewed Test Results Lab Laboratory Tests Test 01/02/23 23:34 01/02/23 23:37 01/02/23 23:38 01/03/23 00:46 Range/Units White Blood Count 14.0 H 4.3-11.0 10^3/uL Red Blood Count 4.40 3.80-5.11 10^6/uL Hemoglobin 12.9 11.5-16.0 g/dL Hematocrit 41 35-52 % Mean Corpuscular Volume 94 80-99 fL Mean Corpuscular Hemoglobin 29 25-34 pg Mean Corpuscular Hemoglobin Concent 31 L 32-36 g/dL Red Cell Distribution Width 12.9 10.0-14.5 % Platelet Count 450 H 130-400 10^3/uL Mean Platelet Volume 9.9 9.0-12.2 fL Immature Granulocyte % (Auto) 1 % Neutrophils (%) (Auto) 45 42-75 % Lymphocytes (%) (Auto) 43 12-44 % Monocytes (%) (Auto) 7 0-12 % Eosinophils (%) (Auto) 5 0-10 % Basophils (%) (Auto) 1 0-10 % Neutrophils # (Auto) 6.2 1.8-7.8 10^3/uL Lymphocytes # (Auto) 6.0 H 1.0-4.0 10^3/uL Monocytes # (Auto) 0.9 0.0-1.0 10^3/uL Eosinophils # (Auto) 0.7 H 0.0-0.3 10^3/uL Basophils # (Auto) 0.1 0.0-0.1 10^3/uL Immature Granulocyte # (Auto) 0.1 0.0-0.1 10^3/uL Prothrombin Time 14.1 12.2-14.7 SEC INR Comment 1.1 0.8-1.4 Activated Partial Thromboplast Time 27 24-35 SEC Sodium Level 139 135-145 MMOL/L Potassium Level 4.0 3.6-5.0 MMOL/L Chloride Level 102 98-107 MMOL/L Carbon Dioxide Level 16 L 21-32 MMOL/L Anion Gap 21 H 5-14 MMOL/L Blood Urea Nitrogen 15 7-18 MG/DL Creatinine 1.83 H 0.60-1.30 MG/DL Estimat Glomerular Filtration Rate 31 BUN/Creatinine Ratio 8 Glucose Level 267 H 70-105 MG/DL Lactic Acid Level 9.74 *H 0.50-2.00 MMOL/L Calcium Level 8.7 8.5-10.1 MG/DL Corrected Calcium 8.7 8.5-10.1 MG/DL Magnesium Level 1.9 1.6-2.4 MG/DL Total Bilirubin 0.2 0.1-1.0 MG/DL Aspartate Amino Transf (AST/SGOT) 43 H 5-34 U/L Alanine Aminotransferase (ALT/SGPT) 28 0-55 U/L Alkaline Phosphatase 122 40-136 U/L Troponin I < 0.028 <0.028 NG/ML B-Type Natriuretic Peptide 128.1 H <100.0 PG/ML Total Protein 7.0 6.4-8.2 GM/DL Albumin 4.0 3.2-4.5 GM/DL Free Thyroxine 0.90 0.70-1.48 NG/DL TSH [place] Testing 5.18 H 0.35-4.94 UIU/ML Glucometer 262 H 70-110 MG/DL D-Dimer 0.72 H 0.00-0.49 UG/ML Influenza Type A (RT-PCR) Not Detected Not Detecte Influenza Type B (RT-PCR) Not Detected Not Detecte SARS-CoV-2 RNA (RT-PCR) Not Detected Not Detecte Test 01/03/23 00:50 01/03/23 01:36 01/03/23 03:19 Range/Units Urine Color YELLOW Urine Clarity CLEAR Urine pH 6.0 5-9 Urine Specific [place] >=1.030 1.016-1.022 Urine Protein 2+ H NEGATIVE Urine Glucose (UA) NEGATIVE NEGATIVE Urine Ketones NEGATIVE NEGATIVE Urine Nitrite NEGATIVE NEGATIVE Urine Bilirubin NEGATIVE NEGATIVE Urine Urobilinogen 1.0 < = 1.0 MG/DL Urine Leukocyte Esterase NEGATIVE NEGATIVE Urine RBC (Auto) 1+ H NEGATIVE Urine RBC 2-5 H /HPF Urine WBC 0-2 /HPF Urine Squamous Epithelial Cells 0-2 /HPF Urine Crystals NONE /LPF Urine Bacteria FEW H /HPF Urine Casts PRESENT /LPF Urine Hyaline Casts 0-2 H /LPF Urine Mucus NEGATIVE /LPF Urine Culture Indicated NO Urine Opiates Screen NEGATIVE NEGATIVE Urine Oxycodone Screen NEGATIVE NEGATIVE Urine Methadone Screen NEGATIVE NEGATIVE Urine Propoxyphene Screen NEGATIVE NEGATIVE Urine Barbiturates Screen NEGATIVE NEGATIVE Ur Tricyclic Antidepressants Screen NEGATIVE NEGATIVE Urine Phencyclidine Screen NEGATIVE NEGATIVE Urine Amphetamines Screen NEGATIVE NEGATIVE Urine Methamphetamines Screen NEGATIVE NEGATIVE Urine Benzodiazepines Screen NEGATIVE NEGATIVE Urine Cocaine Screen NEGATIVE NEGATIVE Urine Cannabinoids Screen POSITIVE H NEGATIVE Lactic Acid Level 2.23 *H 1.29 0.50-2.00 MMOL/L Troponin I 1.245 *H <0.028 NG/ML Triglycerides Level 68 <150 MG/DL Cholesterol Level 159 < 200 MG/DL LDL Cholesterol Direct 113 1-129 MG/DL VLDL Cholesterol 14 5-40 MG/DL HDL Cholesterol 50 40-60 MG/DL Amylase Level 25 25-125 U/L Lipase 48 8-78 U/L Serum Alcohol < 10 <10 MG/DL Physical Exam Physical Exam Vital Signs Vital Signs - First Documented 01/02/23 01/03/23 01/03/23 01/03/23 23:33 00:13 04:11 04:19 Temp 36.2 Pulse 129 Resp 22 B/P (MAP) 121/103 (109) Pulse Ox 94 O2 Delivery Nasal Cannula O2 Flow Rate 4.00 FiO2 28 Capillary Refill : Less Than 3 Seconds Height, Weight, BMI Height: 5'4.00" Weight: 232lbs. oz. [id number]; 35.62 BMI Method:Stated General Appearance: Anxious Eyes: Bilateral Eye Normal Inspection, Bilateral Eye PERRL, Bilateral Eye EOMI HEENT: PERRL/EOMI, TMs Normal, Normal ENT Inspection, Pharynx Normal, Moist Mucous Membranes Neck: Full Range of Motion, Normal Inspection, Non Tender, Supple, Carotid Bruit Respiratory: Chest Non Tender, Normal Breath Sounds, No Accessory Muscle Use, No Respiratory Distress Cardiovascular: Regular Rate, Rhythm, No Edema, No Gallop, No JVD, No Murmur, Normal Peripheral Pulses Gastrointestinal: Normal Bowel Sounds, No Organomegaly, No Pulsatile Mass, Non Tender, Soft Back: Normal Inspection, No CVA Tenderness, No Vertebral Tenderness Extremity: Normal Capillary Refill, Normal Inspection, Normal Range of Motion, Non Tender, No Calf Tenderness, No Pedal Edema Neurologic/Psychiatric: Alert, Oriented x3, No Motor/Sensory Deficits, Normal Mood/Affect Skin: Normal Color, Warm/Dry Lymphatic: No Adenopathy A/P-Cardiology Admission Diagnosis Acute respiratory failure Hypotensive shock Non-ST elevation myocardial infarction Lactic acidosis Assessment/Plan Acute respiratory failure, acute shortness of breath Currently feeling better, still having active dyspnea at rest. Hypotensive shock, improved after IV fluid and Levophed. Lactic acidosis, improved with hydration, started on antibiotics Acute non-ST elevation myocardial infarction, had elevation in troponin EKG with right bundle branch block, left anterior fascicular block, poor R wave progression. Possible anterior myocardial infarction. No previous cardiac history, no active chest pain Discussed the management plan recommended cardiac catheterization possible PTCA Diabetes mellitus, Managed by primary care physician Hypothyroidism, Managed by primary care physician History of marijuana use. History of polysubstance abuse including alcohol. NABIL SALDANA MD Jan 03, 2023 08:35
--- NOTE | 2023-01-03 08:36 | Cardiac Procedure Note-CS/ASA ---
Pre-Procedure Note Pre-Op Procedure Note Date of Available H&P: Jan 03, 2023 Date H&P Reviewed: Jan 03, 2023 Time H&P Reviewed: 08:36 History & Physical: H&P Reviewed, Patient Examed, No changes noted Pre-Operative Diagnosis: NSTMI Moderate Sedation PreProcedure Time 08:36 ASA Score 3 Airway Lungs Heart ASA score ASA 1: a normal healthy patient ASA 2: a patient with a mild systemic disease (mid diabetes, controlled hypertension, obesity ASA 3: a patient with a severe systemic disease that limits activity (angina, COPD, prior Myocardial infarction) ASA 4: a patient with an incapacitating disease that is a constant threat to life (CHF, renal failure) ASA 5: a moribund patient not expected to survive 24 hrs. (ruptured aneurysm) ASA 6: a declared brain- patient whose organs are being harvested. For emergent operations, add the letter E after the classification Mallampati Classification Grade 3 Sedation Plan Analgesia, Amnesia, Plan communicated to team members, Discussed options with patient/fam, Discussed risks with patient/fam The patient is an appropriate candidate to undergo the planned procedure, sedation, and anesthesia. The patient immediately re-assessed prior to indication. NABIL SALDANA MD Jan 03, 2023 08:36
[2023-01-03] MEDS ORDERED: fentaNYL INJ 100 MCG/2 ML AMP ONE (08:39)
[2023-01-03] MEDS ORDERED: MIDAZOLAM 5 MG/5 ML (VERSED) VIAL ONE (08:39)
[2023-01-03] MEDS ORDERED: VERAPAMIL 5 MG/2 ML (CALAN) VIAL IV ONE (08:39)
[2023-01-03] MEDS ORDERED: HEParin 1000 UNIT/ML (10ML VIAL) FOR BOLUS ONE (08:39)
[2023-01-03] MEDS ORDERED: NITRO DRIP 25000 MCG/D5W 250 ML IV ONE (08:40)
[2023-01-03] MEDS ORDERED: HEParin (CATH LAB) 2,000 ML IV ONE (08:41)
[2023-01-03] MEDS ORDERED: LIDOCAINE 1% INJ 20 ML VIAL ONE (08:41)
[2023-01-03] MEDS: ASPIRIN enteric coated 81MG TABLET PO SCH (09:10)
[2023-01-03] MEDS ORDERED: CEFEPIME INJECTION 1,000 MG in NS (IVPB) 50 ML 50 ML IV SCH (09:30)
--- NOTE | 2023-01-03 09:51 | Cardiac Cath Report ---
Cardiac Cath Report Physician (s)/[place] Wet Process (s) Physician NABIL SALDANA MD Pre-Procedure Diagnosis Pre-Procedure Diagnosis: NSTMI Post-Procedure Note Procedure Start Date: Jan 03, 2023 Name of Procedure: Left heart catheterization Left ventriculogram Aortic arch angiogram Findings/Procedure Note PROCEDURE NOTE: 62-year-old lady admitted with acute respiratory insufficiency with shortness of breath, hypotension and tachycardia. Was noted to have elevation in troponin level, cardiac catheterization was advised. After explaining the procedure to the patient, all pros and cons were explained, all questions were answered. The patient signed the consent and then she was placed in the cardiac catheterization laboratory. Groin was prepped in SL fashion local anesthesia was used. Sheath placed in the right radial artery, Mobile catheter was advanced to the left ventricular cavity, pressure was measured, pullback LV to aorta was done, engage the left coronary system then exchanged the catheter to a Hafsa right catheter and engaged the right coronary artery then I decided to advance with a pigtail catheter to the left ventricular cavity again and the pressure was measured I performed left ventriculogram again then I pulled the catheter to the aortic arch and decided to evaluate aortic arch angiogram due to the severe hypotension. At the end of the procedure the sheath was removed. Vascular band was used FINDINGS: Hemodynamics LV 98/40 Aorta 92/75 mean of 84 ANATOMY: Left Main is free of obstructive disease Left Anterior Descending is free of obstructive disease, slow flow in the LAD due to low cardiac output Left Circumflex is free of obstructive disease with slow flow due to low cardiac output Right Coronary Artery is large dominant artery with no obstructive disease with slow flow due to low cardiac output LV Gram was done showing dilated left ventricle with severe diffuse left ventricular hypokinesia with ejection fraction 25% Aorta evaluation done with aortic arch angiogram showing normal aortic arch, there is no dissection or aneurysm, normal origin of the brachiocephalic artery, left subclavian and left carotid CONCLUSION: Normal coronaries with slow flow in the coronary system due to low cardiac output state Dilated left ventricle with severe diffuse left ventricular hypokinesia more pronounced at the apex, ejection fraction 25% Normal aortic arch with no dissection or aneurysm DISCUSSION AND RECOMMENDATION: Patient is in cardiogenic shock with severe hypokinesia and severely elevated left ventricular end-diastolic pressure and narrow pulse pressure. I will start her on pressors and will try to achieve adequate blood pressure control. Starting Jardiance, once blood pressure is stable we will consider adding Coreg and Entresto Anesthesia Type: Conscious Sedation Estimated blood loss (mL): 10 ml Contrast Amount: 60 ml Total Radiation Dose: 641 mGy Post-Procedure Diagnosis Post-operative diagnosis: Hypotensive shock Congestive heart failure dilated cardiomyopathy, nonischemic left ventricular systolic dysfunction, acute Lactic acidosis Sepsis NABIL SALDANA MD Jan 03, 2023 09:51
[2023-01-03] MEDS: CEFEPIME 1,000 MG/NS 50 ML IVPB IV SCH ×4 (10:08→17:34)
[2023-01-03] MEDS: EMPAGLIFLOZIN 10 MG TABLET PO SCH (10:08)
[2023-01-03] MEDS: DOBUTamine DRIP PRE-MIX 250 ML IV SCH ×2 (10:08→18:34)
[2023-01-03] MEDS: inSUlin ASPART (NovoLOG) 1 UNIT/0.01 ML (CHARGE PER UNIT) SC SCH ×2 (16:00→21:00)
[2023-01-04] MEDS ORDERED: ENOXAPARIN 100 MG/1 ML SYRINGE SC SCH ×2 (01:30→14:00)
[2023-01-04] MEDS: CEFEPIME 1,000 MG/NS 50 ML IVPB IV SCH ×8 (01:50→19:26)
[2023-01-04] MEDS: NS IV 1000 ML 1,000 ML IV SCH ×2 (01:53→08:19)
[2023-01-04] MEDS: VASOPRESSIN INJECTION 20 UNIT in NS (IVPB) 100 ML 100 ML IV SCH ×3 (02:59→23:41)
[2023-01-04] MEDS: RT-ALBUTEROL/IPRATROPIUM 3 ML (DUONEB) VIAL INH SCH ×6 (03:18→21:27)
[2023-01-04] MEDS: DOBUTamine DRIP PRE-MIX 250 ML IV SCH (03:53)
[2023-01-04 05:03] LABS: BASOPHILS % (AUTO) 0 % (0-10); EOSINOPHILS % (AUTO) 0 % (0-10); HEMATOCRIT 34 % (35-52); LYMPHOCYTES # (AUTO) 0.9 10^3/uL (1.0-4.0); LYMPHOCYTES % (AUTO) 5 % (12-44); MEAN CORPUSCULAR HEMOGLOBIN 29 pg (25-34); MEAN CORPUSCULAR HGB CONC 32 g/dL (32-36); MEAN CORPUSCULAR VOLUME 90 fL (80-99); MEAN PLATELET VOLUME 10.1 fL (9.0-12.2); MONOCYTES # (AUTO) 1.2 10^3/uL (0.0-1.0); MONOCYTES % (AUTO) 6 % (0-12); NEUTROPHILS # (AUTO) 16.2 10^3/uL (1.8-7.8); NEUTROPHILS % (AUTO) 88 % (42-75); PLATELET COUNT 309 10^3/uL (130-400); WHITE BLOOD COUNT 18.4 10^3/uL (4.3-11.0)
[2023-01-04 05:10] LABS: ALBUMIN 3.3 GM/DL (3.2-4.5); POTASSIUM 3.6 MMOL/L (3.6-5.0)
[2023-01-04 05:12] LABS: CALCIUM 7.9 MG/DL (8.5-10.1)
[2023-01-04 05:13] LABS: TOTAL PROTEIN 5.8 GM/DL (6.4-8.2)
[2023-01-04 05:14] LABS: BILIRUBIN,TOTAL 0.5 MG/DL (0.1-1.0)
[2023-01-04 05:16] LABS: PHOSPHORUS 2.1 MG/DL (2.3-4.7)
[2023-01-04 05:17] LABS: CREATININE SERUM 0.73 MG/DL (0.60-1.30)
[2023-01-04 05:19] LABS: MAGNESIUM 1.9 MG/DL (1.6-2.4)
[2023-01-04] MEDS: KCL 20 MEQ TAB (K-DUR) PO SCH (05:19)
[2023-01-04] MEDS: inSUlin ASPART (NovoLOG) 1 UNIT/0.01 ML (CHARGE PER UNIT) SC SCH ×4 (05:19→20:27)
[2023-01-04] MEDS: POTASSIUM CL 10MEQ/50ML IVPB 50 ML IV SCH ×5 (05:23→10:12)
[2023-01-04] MEDS: MAGNESIUM 1 GM/100 ML IVPB 100 ML IV SCH ×3 (05:24→06:55)
[2023-01-04] MEDS ORDERED: MAGNESIUM 1 GM/100 ML IVPB 200 ML IV ONE (05:53)
[2023-01-04] MEDS ORDERED: POTASSIUM CL 10MEQ/50ML IVPB 200 ML IV ONE (05:53)
[2023-01-04 06:12] LABS: LYMPHOCYTES % (MANUAL) 4 %; MONOCYTES % (MANUAL) 7 %; NEUTROPHILS % (MANUAL) 89 %; RBC MORPH NORMAL; TOXIC GRANULATION/VACUOLAZATIO 1+
--- NOTE | 2023-01-04 06:51 | Progress Note - Hospitalist ---
Subjective HPI/CC On Admission Date Seen by Provider: Jan 04, 2023 Time Seen by Provider: 11:00 CC: Dyspnea HPI: This is a 62[facility]WF clinic patient of [facility] who has hypothyroidism and HTN with polysubstance abuse who presented to the ER with acute hypoxic respiratory failure and hypotension and has been found to have cardiomyopathy and cardiac cath revealed no obstructive disease. Currently she is drowsy and currently on Dobumtamine. Subjective/Events-last exam Patient doing a lot better Dobutamine discontinued Remains closely monitored Lungs are wheezy prednisone maintain so add Singulair and Adv Review of Systems General: Fatigue Pulmonary: Dyspnea Focused Exam Lactate Level 01/03/23 01:36: Lactic Acid Level 2.23*H 01/03/23 03:19: Lactic Acid Level 1.29 01/03/23 08:50: Lactic Acid Level 1.59 Time of Focused Exam: 02:00 Objective Exam Vital Signs Vital Signs Date Time Temp Pulse Resp B/P (MAP) Pulse Ox O2 Delivery O2 Flow Rate FiO2 01/04/23 12:27 87 01/04/23 12:00 17 103/80 (86) 97 Nasal Cannula 2.00 01/04/23 11:12 37.0 01/03/23 04:19 28 Capillary Refill : Less Than 3 Seconds General Appearance: No Apparent Distress, WD/WN, Chronically ill Respiratory: No Accessory Muscle Use, No Respiratory Distress, Decreased Breath Sounds, Wheezing Cardiovascular: Regular Rate, Rhythm Neurologic/Psychiatric: Alert, Oriented x3, No Motor/Sensory Deficits, Normal Mood/Affect Results/Procedures Lab Laboratory Tests 01/04/23 05:00 Patient resulted labs reviewed. Assessment/Plan Assessment and Plan Assess & Plan/Chief Complaint Assessment: Acute hypoxic respiratory failure Cardiogenic shock, improved after IV fluid and Levophed and dobutamine Lactic acidosis likely due to shock Non-ischemic cardiomyopathy Acute non-ST elevation myocardial infarction, had elevation in troponin-cath revealed no obstructive CAD EKG with right bundle branch block Diabetes mellitus Hypothyroidism THC use ETOH abuse Hypothyroidism HTN as outpatient Plan: ICU Dobutamine discontinued IVF Monitor closely Critical Care Critically Ill Patient ELSAMIKE MARTINS Jan 04, 2023 06:51
[2023-01-04] MEDS: predniSONE 10 MG TAB PO SCH (06:54)
[2023-01-04] MEDS: ASPIRIN enteric coated 81MG TABLET PO SCH (08:19)
[2023-01-04] MEDS: EMPAGLIFLOZIN 10 MG TABLET PO SCH (08:19)
--- NOTE | 2023-01-04 09:22 | Tele-ICU Progress Note ---
Subjective Date Seen by a Provider: Jan 04, 2023 Time Seen by a Provider: 09:13 Subjective/Events-last exam Tele-ICU Physician , consultation Note ) Service provided via interactive audio and video telecommunications E-CARE system to a patient admitted to ICU bed in [facility]. Patient is seen today due to persistent need of ICU care Available chart/ vitals / labs / Images reviewed Video assessment done using teleICU camera, rest of exam as per RN She is a 62-year-old female with past medical history of chronic obstructive pulmonary disease due to marijuana abuse, previous history of alcohol abuse and polysubstance abuse today apparently she was smoking marijuana and all of a sudden she became short of breath and diaphoretic and she came to the emergency room where she is in respiratory distress and put on a BiPAP ventilation. She is also found to be in lactic acidosis requiring fluid boluses. Denies any history of fever. Chest x-ray did not show any acute changes. CT angiogram of the chest are done which has not been read yet. However on gross examination no filling defects were seen. Eventually her BiPAP weaned off and currently she is tolerating oxygen with nasal cannula. Denies any chest pain at this time. 01/04/23. she is resting comfortably. cardiac cath revealed no CAD but has dilated cardiomyopathy. Cardiolgy on the case. she is off the levophed. on dobutamine per cardiology Impression 1. Acute hypoxic respiratory failure imroving 2. COPD exacerbation due to marijuana abuse improving 3. Chronic marijuana abuse history 4. Previous history of alcohol and polysubstance abuse. 5. 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 Recommendation 1. Continue supplemental oxygen 2. IV steroids will be tappered. 3. ivf d/c'd 4. Nebulizer treatments. 5. DVT prophylaxis. 6. dobutamine per cards Coordination of care with primary care physician and bedside consultants. I am remotely monitoring this patient from Tele icu station in [place]. I am u nable to do the bedside exam, and history/physical and pertinent information is taken from other notes in the computer and bedside staff. Certain portions of this document may have been dictated utilizing voice recognition technology such as [employer]. Inherent to this technology, typographical and grammatical errors may exist. As much as I am diligent to identify and correct to these mistakes, some errors may remain in the document. Critical care time devoted to this patient today is approximately is 20 minutes-- Sepsis Event Evaluation Height, Weight, BMI Height: 5'4.00" Weight: 232lbs. oz. 105.657241cr; 36.35 BMI Method:Stated Focused Exam Lactate Level 01/03/23 01:36: Lactic Acid Level 2.23*H 01/03/23 03:19: Lactic Acid Level 1.29 01/03/23 08:50: Lactic Acid Level 1.59 Time of Focused Exam: 02:00 Exam Exam Patient acknowledged, consented, and participated in this virtual visit which was conducted using real time audio/video Vital Signs Date Time Temp Pulse Resp B/P (MAP) Pulse Ox O2 Delivery O2 Flow Rate FiO2 01/04/23 08:31 99 Nasal Cannula 2.00 01/04/23 08:00 95 21 107/74 (85) 98 Nasal Cannula 2.00 01/04/23 07:48 36.5 01/04/23 07:00 87 19 116/77 (93) 98 Nasal Cannula 2.00 01/04/23 07:00 99 01/04/23 06:51 Nasal Cannula 2.00 01/04/23 06:50 Nasal Cannula 2.00 01/04/23 06:45 100 Nasal Cannula 4.00 01/04/23 06:00 99 19 112/80 (91) 100 Nasal Cannula 3.00 01/04/23 05:00 96 16 112/80 (91) 100 Nasal Cannula 3.00 01/04/23 04:06 99 Nasal Cannula 4.00 01/04/23 04:00 98 26 131/88 (102) 99 Nasal Cannula 3.00 01/04/23 04:00 100 Nasal Cannula 3.00 01/04/23 04:00 36.6 01/04/23 03:53 81 120/88 01/04/23 03:18 99 Nasal Cannula 4.00 01/04/23 03:00 81 18 118/84 (95) 100 Nasal Cannula 3.00 01/04/23 02:00 81 20 113/83 (93) 99 Nasal Cannula 3.00 01/04/23 01:06 87 01/04/23 01:00 87 20 105/72 (83) 98 Nasal Cannula 3.00 01/04/23 00:00 36.9 01/04/23 00:00 92 20 108/80 (89) 98 Nasal Cannula 3.00 01/04/23 00:00 98 Nasal Cannula 3.00 01/03/23 23:00 99 21 114/78 (90) 98 Nasal Cannula 3.00 01/03/23 22:19 98 Nasal Cannula 4.00 01/03/23 22:00 96 14 109/78 (88) 99 Nasal Cannula 3.00 01/03/23 21:00 98 47 121/81 (94) 97 Nasal Cannula 3.00 01/03/23 20:00 98 Nasal Cannula 3.00 01/03/23 20:00 97 20 112/78 (89) 97 Nasal Cannula 3.00 01/03/23 20:00 37.0 01/03/23 19:00 Nasal Cannula 3.00 01/03/23 19:00 101 14 125/84 (98) 98 Nasal Cannula 3.00 01/03/23 19:00 103 01/03/23 18:34 102 122/85 01/03/23 18:26 100 Nasal Cannula 4.00 01/03/23 18:00 102 12 122/85 (97) 99 Nasal Cannula 2.00 01/03/23 17:00 89 18 116/79 (91) 99 Nasal Cannula 2.00 01/03/23 16:34 93 115/78 01/03/23 16:01 93 18 115/78 (90) 97 Nasal Cannula 2.00 01/03/23 15:35 93 Nasal Cannula 3.00 01/03/23 15:34 36.5 01/03/23 15:09 98 12 118/82 (94) 97 Nasal Cannula 2.00 01/03/23 14:05 96 Nasal Cannula 4.00 01/03/23 14:00 92 14 118/87 (96) 98 Nasal Cannula 2.00 01/03/23 13:00 95 26 117/85 (98) 98 Nasal Cannula 2.00 01/03/23 12:28 92 01/03/23 12:00 89 114/79 (92) Nasal Cannula 2.00 01/03/23 11:58 93 Nasal Cannula 2.00 01/03/23 11:45 92 18 121/90 (102) 95 Nasal Cannula 2.00 01/03/23 11:34 36.2 01/03/23 11:30 96 19 121/87 (92) 95 Nasal Cannula 2.00 01/03/23 11:15 96 21 111/82 (91) 97 Nasal Cannula 2.00 01/03/23 11:10 94 Nasal Cannula 4.00 01/03/23 11:00 99 21 123/93 (104) 94 Nasal Cannula 2.00 01/03/23 10:08 85 100/72 01/03/23 10:00 85 14 100/72 (81) 90 Nasal Cannula 2.00 I & O 01/04/23 07:00 Intake Total 2000 ml Output Total 1775 ml Balance 225 ml Height & Weight Height: 5'4.00" Weight: 232lbs. oz. 105.520950ya; 36.35 BMI Method:Stated General Appearance: No Apparent Distress, Chronically ill HEENT: PERRL/EOMI, TMs Normal, Normal ENT Inspection, Pharynx Normal, Moist Mucous Membranes Neck: Full Range of Motion, Normal Inspection, Non Tender, Supple, Carotid Bruit Respiratory: Normal Breath Sounds, No Accessory Muscle Use, No Respiratory Distress Cardiovascular: Regular Rate, Rhythm Capillary Refill: Less Than 3 Seconds Gastrointestinal: non tender, soft Extremity: No Pedal Edema, Pedal Edema (trace bilateral edema) Neurologic/Psychiatric: Alert, Depressed Affect, Disoriented Skin: Normal Color, Warm/Dry Lymphatic: No Adenopathy Results Lab Laboratory Tests 01/02/23 23:34 01/04/23 05:00 Assessment/Plan Assessment/Plan as above Critical Care: Critically Ill Patient Time spent with patient (mins): 20 XANDER SCHMID MD Jan 04, 2023 09:22
--- NOTE | 2023-01-04 10:01 | Cardiology Progress Note ---
Subjective Date Seen by Provider: Jan 04, 2023 Time Seen by Provider: 09:59 Subjective/Events-last exam Patient was seen at bedside laying down comfortably, feeling well. No new complaint. Review of Systems General: No Chills, No Night Sweats, No Fatigue, No Malaise, No Appetite, No Other HEENT: No Head Aches, No Visual Changes, No Eye Pain, No Ear Pain, No Dysphas ia, No Sinus Congestion, No Post Nasal Drip, No Sore Throat, No Other Pulmonary: No Dyspnea, No Cough, No Pleuritic Chest Pain, No Other Cardiovascular: No: Chest Pain, Palpitations, Orthopnea, Paroxysmal Noc. Dyspnea, Edema, Lt Headedness, Other Focused Exam Lactate Level 01/03/23 01:36: Lactic Acid Level 2.23*H 01/03/23 03:19: Lactic Acid Level 1.29 01/03/23 08:50: Lactic Acid Level 1.59 Time of Focused Exam: 02:00 Objective-Cardiology Exam Last Set of Vital Signs Vital Signs 01/03/23 01/04/23 01/04/23 04:19 07:48 09:00 Temp 36.5 Pulse 86 Resp 20 B/P (MAP) 117/83 (98) Pulse Ox 97 O2 Delivery Nasal Cannula O2 Flow Rate 2.00 FiO2 28 I&O Intake and Output 01/03/23 23:59 Intake Total 3752 ml Output Total 1650 ml Balance 2102 ml Intake Oral 450 ml IV Total 3302 ml Output Urine Total 1650 ml # Bowel Movements 3 Daily Weight Change No General: Alert, Oriented X3, Cooperative HEENT: Atraumatic, PERRLA Neck: Supple, No JVD, No Thyromegaly Lungs: Clear to Auscultation, Normal Air Movement Heart: Regular Rate, Normal S1, Normal S2, No Murmurs Abdomen: Normal Bowel Sounds, Soft, No Tenderness, No Hepatosplenomegaly, No Masses Extremities: No Clubbing, No Cyanosis, No Edema, Normal Pulses, No Tenderness/Swelling Skin: No Rashes, No Breakdown, No Significant Lesion Neuro: Normal Gait, Normal Speech, Strength at 5/5 X4 Ext, Normal Tone, Sensation Intact Psych/Mental Status: Mental Status NL, Mood NL Results Lab Laboratory Tests 01/04/23 05:00 A/P-Cardiology Admission Diagnosis Acute respiratory failure Hypotensive shock Non-ST elevation myocardial infarction Lactic acidosis Assessment/Plan Status post acute respiratory failure with shortness of breath Feeling better and breathing better. No new complain Hypotensive shock, improved after IV fluid and Levophed. Cardiogenic shock due to severe cardiomyopathy Started on dobutamine and feeling better We will wean her off dobutamine and evaluate tolerance and response Lactic acidosis, improved with hydration, started on antibiotics Acute non-ST elevation myocardial infarction, had elevation in troponin Type II myocardial infarction Cardiac catheterization carried out on 01/03/2023 showing nonobstructive coronary artery disease with ejection fraction 25 to 30%. Elevated left ventricular end- diastolic pressure I will start Entresto and carvedilol Diabetes mellitus, Managed by primary care physician Hypothyroidism, Managed by primary care physician History of marijuana use. History of polysubstance abuse including alcohol. NABIL SALDANA MD Jan 04, 2023 10:01
[2023-01-04] MEDS: NOREPINEPHRINE 8 MG/250 ML 250 ML IV SCH ×2 (10:02→21:33)
[2023-01-04] MEDS: SACUBITRIL/VALSARTAN 24/26 MG (ENTRESTO) TABLET PO SCH ×2 (10:45→20:28)
[2023-01-04] MEDS: carvediloL 3.125 MG TABLET PO SCH ×2 (10:45→20:28)
[2023-01-04] MEDS: FLUTICASONE/VILANTEROL 100 MCG 14'S (BREO) IH SCH (14:30)
[2023-01-04 17:34] VITALS: BP 128/98
[2023-01-04 17:35] LABS: ABG BASE EXCESS -0.9 MMOL/L (-2.5-2.5); ABG OXYGEN SATURATION 92 % (94-100); ABG PCO2 34 MMHG (35-45); ABG PH 7.44 (7.37-7.43); ABG PO2 57 MMHG (79-93); ABG TCO2 23.7 MMOL/L (21.0-31.0)
[2023-01-04 17:46] LABS: ALLENS TEST NO; PATIENT TEMP 36.7; VENTILATOR NO
[2023-01-04] MEDS: fentaNYL INJ 100 MCG/2 ML AMP IV PRN (19:26)
[2023-01-04] MEDS: ENOXAPARIN 40 MG/0.4 ML SYRINGE SC SCH (20:28)
[2023-01-04] MEDS: MONTELUKAST 10 MG (SINGULAIR) TAB PO SCH (20:28)
[2023-01-04] MEDS ORDERED: ADVAIR HFA 115/21 MCG INHALER 8 GM IH SCH (21:00)
[2023-01-04 21:28] VITALS: BP 116/78
--- NOTE | 2023-01-04 22:07 | Tele-ICU Progress Note ---
Subjective Date Seen by a Provider: Jan 04, 2023 Time Seen by a Provider: 22:04 Subjective/Events-last exam called for agitation in pt with Hx of polysubstance abuse.,On BIPAP, c/o anxiety, will add IV Precedex Heriberto Talbert MD Sepsis Event Evaluation Height, Weight, BMI Height: 5'4.00" Weight: 232lbs. oz. 105.580601od; 36.35 BMI Method:Stated Focused Exam Lactate Level 01/03/23 01:36: Lactic Acid Level 2.23*H 01/03/23 03:19: Lactic Acid Level 1.29 01/03/23 08:50: Lactic Acid Level 1.59 Time of Focused Exam: 02:00 Exam Exam Patient acknowledged, consented, and participated in this virtual visit which was conducted using real time audio/video Vital Signs Date Time Temp Pulse Resp B/P (MAP) Pulse Ox O2 Delivery O2 Flow Rate FiO2 01/04/23 21:28 107 29 95 30.00 01/04/23 20:00 95 24 119/78 (92) 96 NIV Bilevel 30.00 01/04/23 19:31 NIV Bilevel 30.00 01/04/23 19:30 94 NIV Bilevel 30 01/04/23 19:00 37.5 99 22 125/89 (101) 95 Nasal Cannula 2.00 01/04/23 19:00 90 01/04/23 18:00 93 23 138/94 (110) 98 NIV Bilevel 30.00 01/04/23 17:34 95 22 100 30.00 01/04/23 17:04 95 Nasal Cannula 2.00 01/04/23 17:00 91 25 128/98 (110) 97 Nasal Cannula 2.00 01/04/23 16:26 129/89 (102) 01/04/23 16:00 86 24 98 Nasal Cannula 2.00 01/04/23 16:00 96 Nasal Cannula 2.00 01/04/23 15:56 36.5 01/04/23 15:00 89 12 97 Nasal Cannula 2.00 01/04/23 14:30 95 Nasal Cannula 2.00 01/04/23 14:00 90 25 121/89 (100) 95 Nasal Cannula 2.00 01/04/23 13:00 81 26 125/86 (101) 95 Nasal Cannula 2.00 01/04/23 12:27 87 01/04/23 12:00 96 Nasal Cannula 2.00 01/04/23 12:00 86 17 103/80 (86) 97 Nasal Cannula 2.00 01/04/23 11:12 37.0 01/04/23 11:00 85 14 112/88 (98) 100 Nasal Cannula 2.00 01/04/23 10:13 96 Nasal Cannula 2.00 01/04/23 10:00 88 23 118/85 (96) 97 Nasal Cannula 2.00 01/04/23 09:00 86 20 117/83 (98) 97 Nasal Cannula 2.00 01/04/23 08:31 99 Nasal Cannula 2.00 01/04/23 08:00 95 21 107/74 (85) 98 Nasal Cannula 2.00 01/04/23 07:48 36.5 01/04/23 07:00 87 19 116/77 (93) 98 Nasal Cannula 2.00 01/04/23 07:00 99 01/04/23 06:51 Nasal Cannula 2.00 01/04/23 06:50 Nasal Cannula 2.00 01/04/23 06:45 100 Nasal Cannula 4.00 01/04/23 06:00 99 19 112/80 (91) 100 Nasal Cannula 3.00 01/04/23 05:00 96 16 112/80 (91) 100 Nasal Cannula 3.00 01/04/23 04:06 99 Nasal Cannula 4.00 01/04/23 04:00 98 26 131/88 (102) 99 Nasal Cannula 3.00 01/04/23 04:00 100 Nasal Cannula 3.00 01/04/23 04:00 36.6 01/04/23 03:53 81 120/88 01/04/23 03:18 99 Nasal Cannula 4.00 01/04/23 03:00 81 18 118/84 (95) 100 Nasal Cannula 3.00 01/04/23 02:00 81 20 113/83 (93) 99 Nasal Cannula 3.00 01/04/23 01:06 87 01/04/23 01:00 87 20 105/72 (83) 98 Nasal Cannula 3.00 01/04/23 00:00 36.9 01/04/23 00:00 92 20 108/80 (89) 98 Nasal Cannula 3.00 01/04/23 00:00 98 Nasal Cannula 3.00 01/03/23 23:00 99 21 114/78 (90) 98 Nasal Cannula 3.00 01/03/23 22:19 98 Nasal Cannula 4.00 I & O 01/04/23 07:00 Intake Total 2000 ml Output Total 1775 ml Balance 225 ml Height & Weight Height: 5'4.00" Weight: 232lbs. oz. 105.847522lc; 36.35 BMI Method:Stated General Appearance: No Apparent Distress, WD/WN, Chronically ill HEENT: PERRL/EOMI, TMs Normal, Normal ENT Inspection, Pharynx Normal, Moist Mucous Membranes Neck: Full Range of Motion, Normal Inspection, Non Tender, Supple, Carotid Bruit Respiratory: No Accessory Muscle Use, No Respiratory Distress, Decreased Breath Sounds, Wheezing Cardiovascular: Regular Rate, Rhythm Capillary Refill: Less Than 3 Seconds Gastrointestinal: non tender, soft Extremity: No Pedal Edema, Pedal Edema (trace bilateral edema) Neurologic/Psychiatric: Alert, Oriented x3, No Motor/Sensory Deficits, Normal Mood/Affect Skin: Normal Color, Warm/Dry Lymphatic: No Adenopathy Results Lab Laboratory Tests 01/02/23 23:34 01/04/23 05:00 Assessment/Plan Assessment/Plan called for agitation in pt with Hx of polysubstance abuse.,On BIPAP, c/o anxiety, will add IV Precedex Critical Care: Critically Ill Patient Time spent with patient (mins): 15 DENILSON TALBERT MD Jan 04, 2023 22:07
[2023-01-04] MEDS ORDERED: DexMEDEtomidine 250 ML DRIP 250 ML IV PRN (22:15)
[2023-01-05] MEDS: CEFEPIME 1,000 MG/NS 50 ML IVPB IV SCH ×8 (01:24→19:57)
[2023-01-05] MEDS: RT-ALBUTEROL/IPRATROPIUM 3 ML (DUONEB) VIAL INH SCH ×6 (02:19→21:54)
[2023-01-05 02:20] VITALS: BP 85/53
[2023-01-05 05:06] LABS: BASOPHILS % (AUTO) 0 % (0-10); EOSINOPHILS % (AUTO) 0 % (0-10); HEMATOCRIT 33 % (35-52); HEMOGLOBIN 10.7 g/dL (11.5-16.0); LYMPHOCYTES # (AUTO) 1.2 10^3/uL (1.0-4.0); LYMPHOCYTES % (AUTO) 9 % (12-44); MEAN CORPUSCULAR HEMOGLOBIN 29 pg (25-34); MEAN CORPUSCULAR HGB CONC 32 g/dL (32-36); MEAN CORPUSCULAR VOLUME 90 fL (80-99); MEAN PLATELET VOLUME 10.3 fL (9.0-12.2); MONOCYTES # (AUTO) 1.4 10^3/uL (0.0-1.0); MONOCYTES % (AUTO) 11 % (0-12); NEUTROPHILS # (AUTO) 10.5 10^3/uL (1.8-7.8); NEUTROPHILS % (AUTO) 79 % (42-75); PLATELET COUNT 299 10^3/uL (130-400); WHITE BLOOD COUNT 13.2 10^3/uL (4.3-11.0)
[2023-01-05 05:21] LABS: ALBUMIN 3.1 GM/DL (3.2-4.5); POTASSIUM 3.8 MMOL/L (3.6-5.0)
[2023-01-05 05:22] LABS: CALCIUM 7.9 MG/DL (8.5-10.1)
[2023-01-05 05:23] LABS: TOTAL PROTEIN 5.1 GM/DL (6.4-8.2)
[2023-01-05 05:25] LABS: BILIRUBIN,TOTAL 0.8 MG/DL (0.1-1.0)
[2023-01-05] MEDS: inSUlin ASPART (NovoLOG) 1 UNIT/0.01 ML (CHARGE PER UNIT) SC SCH ×4 (05:26→20:51)
[2023-01-05 05:27] LABS: CREATININE SERUM 0.68 MG/DL (0.60-1.30); PHOSPHORUS 1.4 MG/DL (2.3-4.7)
[2023-01-05] MEDS: MAGNESIUM 1 GM/100 ML IVPB 100 ML IV SCH (05:27)
[2023-01-05] MEDS: POTASSIUM CL 10MEQ/50ML IVPB 50 ML IV SCH (05:28)
[2023-01-05] MEDS: KCL 20 MEQ TAB (K-DUR) PO SCH (05:28)
[2023-01-05] MEDS: NS IV 1000 ML 1,000 ML IV SCH (05:38)
[2023-01-05] MEDS: FLUTICASONE/VILANTEROL 100 MCG 14'S (BREO) IH SCH (06:02)
[2023-01-05] MEDS: predniSONE 10 MG TAB PO SCH (06:19)
[2023-01-05] MEDS ORDERED: KCL 20 MEQ TAB (K-DUR) PO ONE (08:00)
[2023-01-05] MEDS: EMPAGLIFLOZIN 10 MG TABLET PO SCH (08:15)
[2023-01-05] MEDS: SACUBITRIL/VALSARTAN 24/26 MG (ENTRESTO) TABLET PO SCH ×2 (08:15→21:33)
[2023-01-05] MEDS: ASPIRIN enteric coated 81MG TABLET PO SCH (08:15)
[2023-01-05] MEDS ORDERED: FUROSEMIDE 40 MG/4 ML INJ (LASIX) IVP ONE (08:30)
[2023-01-05] MEDS: carvediloL 3.125 MG TABLET PO SCH ×2 (08:30→21:33)
--- NOTE | 2023-01-05 08:54 | Cardiology Progress Note ---
Subjective Date Seen by Provider: Jan 05, 2023 Time Seen by Provider: 08:52 Subjective/Events-last exam Patient was seen at bedside, laying down comfortably Was hypoxemic and agitated last night. Review of Systems General: No Chills, No Night Sweats, No Fatigue, No Malaise, No Appetite, No Other HEENT: No Head Aches, No Visual Changes, No Eye Pain, No Ear Pain, No D ysphasia, No Sinus Congestion, No Post Nasal Drip, No Sore Throat, No Other Pulmonary: Dyspnea; No Cough, No Pleuritic Chest Pain, No Other Cardiovascular: No: Chest Pain, Palpitations, Orthopnea, Paroxysmal Noc. Dyspnea, Edema, Lt Headedness, Other Focused Exam Lactate Level 01/03/23 01:36: Lactic Acid Level 2.23*H 01/03/23 03:19: Lactic Acid Level 1.29 01/03/23 08:50: Lactic Acid Level 1.59 Time of Focused Exam: 02:00 Objective-Cardiology Exam Last Set of Vital Signs Vital Signs 01/04/23 01/05/23 01/05/23 23:25 07:55 08:00 Temp 36.6 Pulse 66 Resp 12 B/P (MAP) 97/71 (80) Pulse Ox 97 O2 Delivery Nasal Cannula O2 Flow Rate 2.00 FiO2 30 I&O Intake and Output 01/05/23 00:00 Intake Total 3000 ml Output Total 2075 ml Balance 925 ml Intake Oral 1150 ml IV Total 1850 ml Output Urine Total 2075 ml # Bowel Movements 1 General: Alert, Oriented X3, Cooperative HEENT: Atraumatic, PERRLA Neck: Supple, No JVD, No Thyromegaly Lungs: Clear to Auscultation, Normal Air Movement Heart: Regular Rate, Normal S1, Normal S2, No Murmurs Abdomen: Normal Bowel Sounds, Soft, No Tenderness, No Hepatosplenomegaly, No Masses Extremities: No Clubbing, No Cyanosis, No Edema, Normal Pulses, No Tenderness/Swelling Skin: No Rashes, No Breakdown, No Significant Lesion Neuro: Normal Gait, Normal Speech, Strength at 5/5 X4 Ext, Normal Tone, Sensation Intact Psych/Mental Status: Mental Status NL, Mood NL Results Lab Laboratory Tests 01/05/23 04:45 A/P-Cardiology Admission Diagnosis Acute respiratory failure Hypotensive shock Non-ST elevation myocardial infarction Lactic acidosis Assessment/Plan Status post acute respiratory failure with shortness of breath Pulmonary edema, improving. Had an episode of increasing dyspnea last night Appeared to be more dyspneic this morning We will give Lasix 40 mg IV. Hypotensive shock, improved after IV fluid and Levophed. Cardiogenic shock due to severe cardiomyopathy Off dobutamine drip Cannot tolerate Coreg or Entresto due to hypotension Planning to give Lasix and monitor blood pressure Lactic acidosis, improved with hydration, started on antibiotics Acute non-ST elevation myocardial infarction, had elevation in troponin Type II myocardial infarction Cardiac catheterization carried out on 01/03/2023 showing nonobstructive coronary artery disease with ejection fraction 25 to 30%. Elevated left ventricular end- diastolic pressure I will start Entresto and carvedilol with parameters to hold for systolic blood pressure less than 100 Diabetes mellitus, Managed by primary care physician Hypothyroidism, Managed by primary care physician History of marijuana use. History of polysubstance abuse including alcohol. NABIL SALDANA MD Jan 05, 2023 08:54
[2023-01-05] MEDS ORDERED: POT PHOS/NA PHOS (K-PHOS NEUTRAL) PO ONE (09:45)
[2023-01-05] MEDS: PARoxetine 20 MG (PAXIL) TAB PO SCH (09:58)
--- NOTE | 2023-01-05 10:38 | Physical Therapy Evaluation ---
PT Evaluation-General Medical Diagnosis Admission Date Jan 03, 2023 at 02:56 Medical Diagnosis: sepsis/respiratory failure Onset Date: Jan 03, 2023 Therapy Diagnosis Therapy Diagnosis: debility Height/Weight Height (Feet): 5 Height (Inches): 4.00 Weight (Pounds): 232 Precautions Precautions/Isolations: Standard Precautions Referral Physician: Lillian Reason for Referral: Evaluation/Treatment Medical History Pertinent Medical History: Alcoholism, COPD (O2 HS), HTN Additional Medical History polysubstance use Current History EMS secondary to SOA after smoking marijuana Reviewed History: Yes Social History Home: Single Level Prior Prior Level of Function SCALE: Activities may be completed with or without assistive devices. 1-Fjnwdodokl-dqsxsya completes the activity by him/herself with no assistance from a helper. 5-Set-up or Clean-up Assistance-helper sets up or cleans up; patient completes activity. [place] assists only prior to or following the activity. 4-Supervision or Touching Assistance-helper provides verbal cues and/or touching/steadying and/or contact guard assistance as patient completes activity. Assistance may be provided throughout the activity or intermittently. 3-Partial/Moderate Assistance-helper does LESS THAN HALF the effort. [place] lifts, holds or supports trunk or limbs, but provides less than half the effort. 2-Substantial/Maximal Assistance-helper does MORE THAN HALF the effort. [place] lifts or holds trunk or limbs and provides more than half the effort. 6-Lyhqlkraj-xvvxnu does ALL the effort. Patient does none of the effort to complete the activity. Or, the assistance of 2 or more helpers is required for the patient to complete the activity. If activity was not attempted, code reason: 7-Patient Refused. 9-Not Applicable-not attempted and the patient did not perform the activity before the current illness, exacerbation or injury. 10-Not Attempted due to Environmental Limitations-(lack of equipment, weather restraints, etc.). 88-Not Attempted due to Medical Conditions or Safety Concerns. Bed Mobility: 6 Transfers (B,C,W/C): 6 Gait: 6 Stairs: 6 Indoor Mobility (Ambulation): Independent Stairs: Independent Prior Devices Use: None works outside of home PT Evaluation-Current Subjective Patient reports she is feeling much better and agrees to PT. Objective Patient Orientation: Normal For Age Attachments: Oxygen, Lugo Catheter ROM/Strength ROM Lower Extremities bilateral LE WFL Strength Lower Extremities 4/5 grossly bilateral LE all planes Integumentary/Posture Bladder Incontinence: Lugo Cath Posture WFL Neuromuscular (Tone, Coordination, Reflexes) grossly intact Sensory Vision: Functional Hearing: Functional Transfers Sit to Stand (QC): 6 Gait Mode of Locomotion: Walk Anticipated Mode of Locomotion: Walk Walk 10 feet (QC): 6 Walk 50 ft with 2 Turns(QC): 6 Walk 150 ft (QC): 6 Distance: 225' Gait Assistive Device: None Comments/Gait Description slightly unsteady initially with self correct/improved with distance Balance Sitting Static: Normal Sitting Dynamic: Normal Standing Static: Normal Standing Dynamic: Normal Assessment/Needs Patient is currently at independent PLOF with all gross motor skill safely and does not require skilled PT intervention at this time. Rehab Potential: Fair PT Plan Treatment/Plan Treatment Plan: Discontinue PT Treatment Duration: Jan 05, 2023 Frequency: 1 time per week Estimated Hrs Per Day: .25 hour per day Patient and/or Family Agrees t: Yes Time Time In: 1017 Time Out: 1030 DATE: Jan 05, 2023 Total Billed Treatment Time: 13 Total Billed Treatment 1 visit [facility] 13 min JOSE ESCOBAR PT Jan 05, 2023 10:38
--- NOTE | 2023-01-05 10:45 | Tele-ICU Progress Note ---
Subjective Date Seen by a Provider: Jan 05, 2023 Time Seen by a Provider: 10:40 Subjective/Events-last exam (Tele-ICU Physician , Progress Note ) Service provided via interactive audio and video telecommunications E-CARE system to a patient admitted to ICU bed in [facility]. Patient is seen today due to persistent need of ICU care Available chart/ vitals / labs / Images reviewed Video assessment done using teleICU camera, rest of exam as per RN Discussed with RN Events overnight : episode of increasing dyspnea last night Afebrile hemodynamically stable Respiratory - I/O = Drips: ns 25 Pressors- no Hospital course: (01/03) 62/F- Chest tightness, diaphoretic and hypoxic s/p Q bid marijuana smoking. Asthma copd hx. Imaging reports opacities. levo gtt. (+) Troponins. (01/03) To CCL-Normal coronaries. EF 25%. Cardiogenic shock hypokinetic mvt. Dobutamine gtt. (01/04) Bipap, precedex. 01/05 - off precedex , 2 L NC A/P Impression Acute hypoxic respiratory failure imroving - off bipap . off preceded , will try diuresis prednisone ordered po for 3 d - follow COPD exacerbation due to marijuana abuse improving - prednisone ordered po for 3 d cardiomyopathy - nonobstr cad on cath - EF 25 % - off dobutamin - as per cards DM - as pewr pcp Chronic marijuana abuse history Previous history of alcohol and polysubstance abuse. Lines : periph (Central Line Necessity Reviewed) Lugo: + 01/03 OG: Nutrition: p[o Analgesia: Anxiety/ delirium VTE Prophylaxis: kayden 40 Stress Ulcer Prophylaxis: na Plans in collaboration with bedside consultants and IM MDs. Discussed with RN to reach out if any questions or concerns Case and care daily discussed on multidisciplinary rounds ( RN, PharmD, Clinical Services Professional , Respiratory Therapy, flavor room worker ) A total of _20 minutes of critical care time was devoted to this patient today, required to treat and/or prevent further deterioration of critical care condition ( as above ) . I am remotely monitoring this patient from another state. I am unable to do the bedside exam, and history/physical and pertinent information is taken from other notes in the computer and bedside staff. Sepsis Event Evaluation Height, Weight, BMI Height: 5'4.00" Weight: 232lbs. oz. 105.079711vv; 36.92 BMI Method:Stated Focused Exam Lactate Level 01/03/23 01:36: Lactic Acid Level 2.23*H 01/03/23 03:19: Lactic Acid Level 1.29 01/03/23 08:50: Lactic Acid Level 1.59 Time of Focused Exam: 02:00 Exam Exam Patient acknowledged, consented, and participated in this virtual visit which was conducted using real time audio/video Vital Signs Date Time Temp Pulse Resp B/P (MAP) Pulse Ox O2 Delivery O2 Flow Rate FiO2 01/05/23 10:20 96 Nasal Cannula 2.00 01/05/23 10:00 74 33 112/76 (88) 97 Nasal Cannula 2.00 01/05/23 09:00 75 26 105/73 (84) 96 Nasal Cannula 2.00 01/05/23 08:00 66 12 97/71 (80) 97 Nasal Cannula 2.00 01/05/23 07:55 36.6 01/05/23 07:27 71 01/05/23 07:00 69 24 101/71 (81) 97 Nasal Cannula 2.00 01/05/23 06:02 97 Nasal Cannula 2.00 01/05/23 06:00 70 20 99/67 (78) 96 Nasal Cannula 2.00 01/05/23 05:00 75 37 98/60 (73) 96 Nasal Cannula 2.00 01/05/23 04:30 69 19 90/56 (67) 95 Nasal Cannula 2.00 01/05/23 04:23 67 19 93/58 (70) 94 Nasal Cannula 2.00 01/05/23 04:00 69 19 86/54 (65) 95 Nasal Cannula 2.00 01/05/23 03:30 36.4 Nasal Cannula 2.00 01/05/23 03:30 96 Nasal Cannula 2.00 01/05/23 03:00 71 14 94/57 (69) 96 Nasal Cannula 2.00 01/05/23 02:50 Nasal Cannula 2.00 01/05/23 02:28 66 77/53 01/05/23 02:20 64 21 97 30.00 01/05/23 02:08 67 85/53 01/05/23 02:04 68 21 85/53 (64) 96 NIV Bilevel 30.00 01/05/23 01:54 67 85/53 01/05/23 01:00 80 11 98/68 (78) 95 NIV Bilevel 30.00 01/05/23 01:00 80 01/05/23 00:35 87 92/70 01/05/23 00:00 89 95/66 (76) 94 NIV Bilevel 30.00 01/04/23 23:25 36.5 83 24 98 NIV Bilevel 30.00 01/04/23 23:25 98 NIV Bilevel 30 01/04/23 23:00 93 19 121/79 (93) 97 NIV Bilevel 30.00 01/04/23 22:52 91 130/89 01/04/23 22:17 93 130/89 01/04/23 22:00 96 18 130/89 (100) 98 NIV Bilevel 30.00 01/04/23 21:28 107 29 95 30.00 01/04/23 21:00 100 9 116/78 (92) 97 NIV Bilevel 30.00 01/04/23 20:00 95 24 119/78 (92) 96 NIV Bilevel 30.00 01/04/23 19:31 NIV Bilevel 30.00 01/04/23 19:30 94 NIV Bilevel 30 01/04/23 19:00 37.5 99 22 125/89 (101) 95 Nasal Cannula 2.00 01/04/23 19:00 90 01/04/23 18:00 93 23 138/94 (110) 98 NIV Bilevel 30.00 01/04/23 17:34 95 22 100 30.00 01/04/23 17:04 95 Nasal Cannula 2.00 01/04/23 17:00 91 25 128/98 (110) 97 Nasal Cannula 2.00 01/04/23 16:26 129/89 (102) 01/04/23 16:00 86 24 98 Nasal Cannula 2.00 01/04/23 16:00 96 Nasal Cannula 2.00 01/04/23 15:56 36.5 01/04/23 15:00 89 12 97 Nasal Cannula 2.00 01/04/23 14:30 95 Nasal Cannula 2.00 01/04/23 14:00 90 25 121/89 (100) 95 Nasal Cannula 2.00 01/04/23 13:00 81 26 125/86 (101) 95 Nasal Cannula 2.00 01/04/23 12:27 87 01/04/23 12:00 96 Nasal Cannula 2.00 01/04/23 12:00 86 17 103/80 (86) 97 Nasal Cannula 2.00 01/04/23 11:12 37.0 01/04/23 11:00 85 14 112/88 (98) 100 Nasal Cannula 2.00 I & O 01/05/23 07:00 Intake Total 2650 ml Output Total 2225 ml Balance 425 ml Height & Weight Height: 5'4.00" Weight: 232lbs. oz. 105.651626pj; 36.92 BMI Method:Stated General Appearance: No Apparent Distress, WD/WN, Chronically ill HEENT: PERRL/EOMI, TMs Normal, Normal ENT Inspection, Pharynx Normal, Moist Mucous Membranes Neck: Full Range of Motion, Normal Inspection, Non Tender, Supple, Carotid Bruit Respiratory: No Accessory Muscle Use, No Respiratory Distress, Decreased Breath Sounds, Wheezing Cardiovascular: Regular Rate, Rhythm Capillary Refill: Less Than 3 Seconds Gastrointestinal: non tender, soft Extremity: No Pedal Edema, Pedal Edema (trace bilateral edema) Neurologic/Psychiatric: Alert, Oriented x3, No Motor/Sensory Deficits, Normal Mood/Affect Skin: Normal Color, Warm/Dry Lymphatic: No Adenopathy Results Lab Laboratory Tests 01/04/23 05:00 01/05/23 04:45 Assessment/Plan Assessment/Plan 1 MANUELA WATTS MD Jan 05, 2023 10:45
[2023-01-05] MEDS: VASOPRESSIN INJECTION 20 UNIT in NS (IVPB) 100 ML 100 ML IV SCH ×2 (12:21→22:02)
[2023-01-05] MEDS: NOREPINEPHRINE 8 MG/250 ML 250 ML IV SCH (12:21)
--- NOTE | 2023-01-05 12:31 | Progress Note ---
Subjective Subjective/Events-last exam Patient states that she is feeling better this AM. She was able to get to commode yesterday and states that it took all her energy. ON had some hypoxic events and anxiety. + BM yesterday. Review of Systems General: Fatigue Pulmonary: Dyspnea; No Cough Cardiovascular: Edema; No: Chest Pain, Palpitations Gastrointestinal: No: Nausea, Vomiting, Abdominal Pain, Diarrhea, Constipation Neurological: Weakness, Incoordination Focused Exam Lactate Level 01/03/23 01:36: Lactic Acid Level 2.23*H 01/03/23 03:19: Lactic Acid Level 1.29 01/03/23 08:50: Lactic Acid Level 1.59 Time of Focused Exam: 02:00 Objective Exam Last Set of Vital Signs Vital Signs Date Time Temp Pulse Resp B/P (MAP) Pulse Ox O2 Delivery O2 Flow Rate FiO2 01/05/23 12:00 95 Nasal Cannula 1.00 01/05/23 11:53 36.2 01/05/23 11:02 01/05/23 11:00 70 20 01/04/23 23:25 30 Capillary Refill : Less Than 3 Seconds I&O Intake and Output 01/05/23 00:00 Intake Total 3000 ml Output Total 2075 ml Balance 925 ml Intake Oral 1150 ml IV Total 1850 ml Output Urine Total 2075 ml # Bowel Movements 1 General: Alert, Oriented X3, Mild Distress (with minimal activity) Lungs: Other (basilar wheezing, normal work of breathing at rest) Heart: Regular Rate, No Murmurs Abdomen: Soft, No Tenderness Extremities: Other (2+ pitting edema bilaterally) Neuro: Normal Speech Results/Procedures Lab Laboratory Tests 01/04/23 15:25: Blood Gas Puncture Site LEFT WRIST, Blood Gas Patient Temperature 36.7, Arterial Blood pH 7.44H, Arterial Blood Partial Pressure CO2 34L, Arterial Blood Partial Pressure O2 57L, Arterial Blood HCO3 23, Arterial Blood Total CO2 23.7, Arterial Blood Oxygen Saturation 92L, Arterial Blood Base Excess -0.9, Mayo Test NO, Blood Gas Ventilator Setting NO, Blood Gas Inspired Oxygen 2% 01/04/23 15:49: Glucometer 113H 01/04/23 20:27: Glucometer 102 01/05/23 04:45: White Blood Count 13.2H, Red Blood Count 3.67L, Hemoglobin 10.7L, Hematocrit 33L , Mean Corpuscular Volume 90, Mean Corpuscular Hemoglobin 29, Mean Corpuscular Hemoglobin Concent 32, Red Cell Distribution Width 13.6, Platelet Count 299, Mean Platelet Volume 10.3, Immature Granulocyte % (Auto) 0, Neutrophils (%) (Auto) 79H, Lymphocytes (%) (Auto) 9L, Monocytes (%) (Auto) 11, Eosinophils (%) (Auto) 0, Basophils (%) (Auto) 0, Neutrophils # (Auto) 10.5H, Lymphocytes # (Auto) 1.2, Monocytes # (Auto) 1.4H, Eosinophils # (Auto) 0.0, Basophils # (Auto) 0.0, Immature Granulocyte # (Auto) 0.1, Sodium Level 138, Potassium Level 3.8, Chloride Level 108H, Carbon Dioxide Level 24, Anion Gap 6, Blood Urea Nitrogen 13, Creatinine 0.68, Estimat Glomerular Filtration Rate 98, BUN/Creatinine Ratio 19, Glucose Level 108H, Calcium Level 7.9L, Corrected Calcium 8.6, Phosphorus Level 1.4L, Magnesium Level 2.0, Total Bilirubin 0.8, Aspartate Amino Transf (AST/SGOT) 30, Alanine Aminotransferase (ALT/SGPT) 39, Alkaline Phosphatase 80, Total Protein 5.1L, Albumin 3.1L 01/05/23 10:40: Glucometer 144H Microbiology 01/03/23 MRSA Screen - Final, Complete MRSA not isolated 01/03/23 Blood Culture - Preliminary, Resulted No growth 01/03/23 Urine Culture - Final, Complete NO GROWTH Assessment/Plan Assessment/Plan (1) Acute on chronic respiratory failure with hypoxia Status: Acute Assessment & Plan: 01/05: Will continue to wean oxygen during the day as tolerated, patient wears oxygen at night, CXR in AM if unable to wean oxygen (2) Cardiogenic shock Status: Acute Assessment & Plan: 01/05: Cardiology consulted and managing, appreciate recommendations (3) Pulmonary edema Status: Acute Qualifiers: Qualified Codes: J81.0 - Acute pulmonary edema (4) NSTEMI (non-ST elevated myocardial infarction) Status: Acute Assessment & Plan: 01/05: Cardiology managing (5) Lactic acidosis Status: Resolved (6) Non-ischemic cardiomyopathy Status: Chronic (7) Hypothyroidism Status: Chronic Assessment & Plan: - Continue home meds Qualifiers: Qualified Codes: E03.9 - Hypothyroidism, unspecified (8) Non-insulin dependent type 2 diabetes mellitus Status: Chronic Assessment & Plan: - Diet controlled, not on meds at home, A1c pending (9) H/O alcohol abuse Status: Chronic (10) DVT prophylaxis Status: Acute Assessment & Plan: - FOZIA Ramos MD Jan 05, 2023 12:31
[2023-01-05] MEDS ORDERED: FLUT1DIS26 IH (13:09)
[2023-01-05] MEDS ORDERED: DICL75TA2 PO (13:09)
[2023-01-05] MEDS ORDERED: ALB0.5V INH (13:09)
[2023-01-05] MEDS ORDERED: LOSA50TA63 PO (13:09)
[2023-01-05] MEDS ORDERED: HYDR50TA6 PO (13:09)
[2023-01-05] MEDS ORDERED: MONT-40 PO (13:09)
[2023-01-05] MEDS ORDERED: CETI10TA17 PO (13:09)
[2023-01-05] MEDS: DOBUTamine DRIP PRE-MIX 250 ML IV SCH (15:16)
[2023-01-05] MEDS: PANTOPRAZOLE 20 MG TABLET (PROTONIX) PO SCH (21:33)
[2023-01-05] MEDS: MONTELUKAST 10 MG (SINGULAIR) TAB PO SCH (21:33)
[2023-01-05] MEDS: ENOXAPARIN 40 MG/0.4 ML SYRINGE SC SCH (21:34)
[2023-01-05 21:59] VITALS: BP 118/87
[2023-01-05] MEDS: fentaNYL INJ 100 MCG/2 ML AMP IV PRN (22:06)
[2023-01-06] MEDS: CEFEPIME 1,000 MG/NS 50 ML IVPB IV SCH ×4 (01:59→08:23)
[2023-01-06] MEDS: RT-ALBUTEROL/IPRATROPIUM 3 ML (DUONEB) VIAL INH SCH ×4 (02:18→20:59)
[2023-01-06 04:15] LABS: BASOPHILS % (AUTO) 0 % (0-10); EOSINOPHILS % (AUTO) 0 % (0-10); HEMATOCRIT 34 % (35-52); LYMPHOCYTES # (AUTO) 1.8 10^3/uL (1.0-4.0); LYMPHOCYTES % (AUTO) 17 % (12-44); MEAN CORPUSCULAR HEMOGLOBIN 30 pg (25-34); MEAN CORPUSCULAR HGB CONC 33 g/dL (32-36); MEAN CORPUSCULAR VOLUME 90 fL (80-99); MEAN PLATELET VOLUME 10.3 fL (9.0-12.2); MONOCYTES # (AUTO) 1.1 10^3/uL (0.0-1.0); MONOCYTES % (AUTO) 11 % (0-12); NEUTROPHILS # (AUTO) 7.7 10^3/uL (1.8-7.8); NEUTROPHILS % (AUTO) 72 % (42-75); PLATELET COUNT 285 10^3/uL (130-400); WHITE BLOOD COUNT 10.7 10^3/uL (4.3-11.0)
[2023-01-06] MEDS: NOREPINEPHRINE 8 MG/250 ML 250 ML IV SCH (04:39)
[2023-01-06 04:42] LABS: ALBUMIN 3.2 GM/DL (3.2-4.5); BILIRUBIN,TOTAL 0.7 MG/DL (0.1-1.0); CALCIUM 8.1 MG/DL (8.5-10.1); CREATININE SERUM 0.7 MG/DL (0.60-1.30); MAGNESIUM 1.8 MG/DL (1.6-2.4); PHOSPHORUS 1.2 MG/DL (2.3-4.7); POTASSIUM 3.1 MMOL/L (3.6-5.0); TOTAL PROTEIN 5.6 GM/DL (6.4-8.2)
[2023-01-06] MEDS: inSUlin ASPART (NovoLOG) 1 UNIT/0.01 ML (CHARGE PER UNIT) SC SCH ×4 (04:48→20:06)
[2023-01-06] MEDS: MAGNESIUM 1 GM/100 ML IVPB 100 ML IV SCH ×3 (04:49→06:05)
[2023-01-06] MEDS: POTASSIUM CL 10MEQ/50ML IVPB 50 ML IV SCH ×4 (04:49→07:01)
[2023-01-06] MEDS: KCL 20 MEQ TAB (K-DUR) PO SCH (04:49)
[2023-01-06] MEDS ORDERED: POTASSIUM CL 10 MEQ/50 ML IV ONE (05:00)
[2023-01-06] MEDS ORDERED: MAGNESIUM 1 GM/100 ML IVPB 100 ML IV ONE (05:00)
[2023-01-06 06:36] VITALS: BP 106/77
[2023-01-06] MEDS: predniSONE 10 MG TAB PO SCH (06:40)
[2023-01-06] MEDS: FLUTICASONE/VILANTEROL 100 MCG 14'S (BREO) IH SCH (06:45)
--- NOTE | 2023-01-06 08:07 | Cardiology Progress Note ---
Subjective Date Seen by Provider: Jan 06, 2023 Time Seen by Provider: 08:05 Subjective/Events-last exam Patient was seen at bedside, laying down comfortably, feeling better. Review of Systems General: No Chills, No Night Sweats, No Fatigue, No Malaise, No Appetite, No Other HEENT: No Head Aches, No Visual Changes, No Eye Pain, No Ear Pain, No Dysphasia, No Sinus Congestion, No Post Nasal Drip, No Sore Throat, No Other Pulmonary: No Dyspnea, No Cough, No Pleuritic Chest Pain, No Other Cardiovascular: No: Chest Pain, Palpitations, Orthopnea, Paroxysmal Noc. Dyspnea, Edema, Lt Headedness, Other Focused Exam Lactate Level 01/03/23 08:50: Lactic Acid Level 1.59 Time of Focused Exam: 02:00 Objective-Cardiology Exam Last Set of Vital Signs Vital Signs 01/06/23 01/06/23 01/06/23 03:40 03:43 07:00 Temp 37.1 Pulse 57 Resp 17 B/P (MAP) 111/78 (89) Pulse Ox 100 O2 Delivery Nasal Cannula O2 Flow Rate 1.00 FiO2 30 I&O Intake and Output 01/06/23 00:00 Intake Total 1150 ml Output Total 4250 ml Balance -3100 ml Intake Oral 1000 ml IV Total 150 ml Output Urine Total 4250 ml General: Alert, Oriented X3, Mild Distress (with minimal activity) HEENT: Atraumatic, PERRLA Neck: Supple, No JVD, No Thyromegaly Lungs: Other (basilar wheezing, normal work of breathing at rest) Heart: Regular Rate, Normal S1, Normal S2, No Murmurs Abdomen: Soft, No Tenderness Extremities: No Clubbing, No Cyanosis, Other (2+ pitting edema bilaterally) Skin: No Rashes, No Breakdown, No Significant Lesion Neuro: Normal Speech Psych/Mental Status: Mental Status NL, Mood NL Results Lab Laboratory Tests 01/06/23 03:35 A/P-Cardiology Admission Diagnosis Acute respiratory failure Hypotensive shock Non-ST elevation myocardial infarction Lactic acidosis Assessment/Plan Status post acute respiratory failure with shortness of breath Pulmonary edema, improving. Had an episode of increasing dyspnea last night Responded well to diuretics. I will give another 20 mg IV Lasix today Hypotensive shock, improved after IV fluid and Levophed. Cardiogenic shock due to severe cardiomyopathy Off dobutamine drip Cannot tolerate Coreg or Entresto due to hypotension Continue to use low-dose beta-jesica and Entresto as tolerated Lactic acidosis, improved with hydration, started on antibiotics Acute non-ST elevation myocardial infarction, had elevation in troponin Type II myocardial infarction Cardiac catheterization carried out on 01/03/2023 showing nonobstructive coronary artery disease with ejection fraction 25 to 30%. Elevated left ventricular end- diastolic pressure I will start Entresto and carvedilol with parameters to hold for systolic blood pressure less than 100 Diabetes mellitus, Managed by primary care physician Hypothyroidism, Managed by primary care physician History of marijuana use. History of polysubstance abuse including alcohol. NABIL SALDANA MD Jan 06, 2023 08:07
[2023-01-06] MEDS: EMPAGLIFLOZIN 10 MG TABLET PO SCH (08:24)
[2023-01-06] MEDS: carvediloL 3.125 MG TABLET PO SCH ×2 (08:24→20:14)
[2023-01-06] MEDS: PANTOPRAZOLE 20 MG TABLET (PROTONIX) PO SCH ×2 (08:24→20:15)
[2023-01-06] MEDS: ASPIRIN enteric coated 81MG TABLET PO SCH (08:24)
[2023-01-06] MEDS: SACUBITRIL/VALSARTAN 24/26 MG (ENTRESTO) TABLET PO SCH ×2 (08:24→20:14)
[2023-01-06] MEDS: PARoxetine 20 MG (PAXIL) TAB PO SCH (08:24)
[2023-01-06] MEDS ORDERED: FUROSEMIDE 40 MG/4 ML INJ (LASIX) IVP NR (08:30)
--- NOTE | 2023-01-06 08:41 | Diagnostic Imaging Report ---
INDICATION: Respiratory distress. COMPARISON: 01/02/2023. FINDINGS: Heart size upper limits stable. Mild elevation of the right diaphragm stable. No focal consolidation. Previous bilobed radiodensity projecting over the left apex resolved presumed to have reflected incidental overlying artifact. IMPRESSION: No acute appearing abnormality. Dictated by: Dictated on workstation # [id number]
--- NOTE | 2023-01-06 09:54 | Tele-ICU Progress Note ---
Subjective Date Seen by a Provider: Jan 06, 2023 Time Seen by a Provider: 09:54 Subjective/Events-last exam (Tele-ICU Physician , Progress Note ) Service provided via interactive audio and video telecommunications E-CARE system to a patient admitted to ICU bed in [facility]. Patient is seen today due to persistent need of ICU care Available chart/ vitals / labs / Images reviewed Video assessment done using teleICU camera, rest of exam as per RN Discussed with RN Events overnight : episode of increasing dyspnea last night Afebrile hemodynamically stable Respiratory - 1l I/O = neg Drips: Pressors- no Hospital course: (01/03) 62/F- Chest tightness, diaphoretic and hypoxic s/p Q bid marijuana smoking. Asthma copd hx. Imaging reports opacities. levo gtt. (+) Troponins. (01/03) To CCL-Normal coronaries. EF 25%. Cardiogenic shock hypokinetic mvt. Dobutamine gtt. (01/04) Bipap, precedex. 01/05 - off precedex , 2 L NC , lasix x1 - > 4 L UO - off dobutamin 01/06- bipap overnigh, 2 L o2 A/P Impression Acute hypoxic respiratory failure imroving - off bipap . off precedex ,diuresis, prednisone po x3 - finished -- bipap overnigh - tolerates well COPD exacerbation due to marijuana abuse improving - prednisone ordered po for 3 d- finished cardiomyopathy - nonobstr CAD on cath - EF 25 % - as per cards DM - diet controlled - AIC 5.5 -as pewr pcp Chronic marijuana abuse history Previous history of alcohol and polysubstance abuse. Lines : periph (Central Line Necessity Reviewed) Lugo: + 01/03 OG: Nutrition: po Analgesia: Anxiety/ delirium VTE Prophylaxis: kayden 40 Stress Ulcer Prophylaxis: na Plans in collaboration with bedside consultants and IM MDs. Discussed with RN to reach out if any questions or concerns Case and care daily discussed on multidisciplinary rounds ( RN, PharmD, [employer]airer , Respiratory Therapy, drop worker ) A total of _20 minutes of critical care time was devoted to this patient today, required to treat and/or prevent further deterioration of critical care condition ( as above ) . I am remotely monitoring this patient from another state. I am unable to do the bedside exam, and history/physical and pertinent information is taken from other notes in the computer and bedside staff. Sepsis Event Evaluation Height, Weight, BMI Height: 5'4.00" Weight: 232lbs. oz. 105.990482wk; 35.89 BMI Method:Stated Focused Exam Time of Focused Exam: 02:00 Exam Exam Patient acknowledged, consented, and participated in this virtual visit which was conducted using real time audio/video Vital Signs Date Time Temp Pulse Resp B/P (MAP) Pulse Ox O2 Delivery O2 Flow Rate FiO2 01/06/23 09:00 70 19 112/76 (88) 97 Nasal Cannula 1.00 01/06/23 08:00 68 11 102/84 (90) 100 Nasal Cannula 1.00 01/06/23 07:32 36.2 01/06/23 07:00 57 17 111/78 (89) 100 Nasal Cannula 1.00 01/06/23 06:55 58 01/06/23 06:40 Nasal Cannula 2.00 01/06/23 06:40 Nasal Cannula 1.00 01/06/23 06:36 64 21 99 25.00 01/06/23 06:00 59 8 106/77 (87) 100 NIV Bilevel 30.00 01/06/23 05:00 60 17 93/62 (72) 98 NIV Bilevel 30.00 01/06/23 04:00 61 14 96/62 (73) 100 NIV Bilevel 30.00 01/06/23 03:43 37.1 NIV Bilevel 30.00 01/06/23 03:40 99 NIV Bilevel 30 01/06/23 03:00 71 25 99/68 (78) 100 Nasal Cannula 1.00 01/06/23 02:22 Nasal Cannula 1.00 01/06/23 02:19 98 Nasal Cannula 1.00 01/06/23 02:00 66 18 100/66 (77) 99 NIV Bilevel 30.00 01/06/23 01:00 69 10 98/65 (76) 98 NIV Bilevel 30.00 01/06/23 01:00 69 01/06/23 00:00 36.9 65 20 98/70 (79) 100 NIV Bilevel 30.00 01/06/23 00:00 100 NIV Bilevel 30 01/05/23 23:00 65 13 90/63 (72) 100 NIV Bilevel 30.00 01/05/23 22:00 85 20 122/84 (97) 98 NIV Bilevel 30.00 01/05/23 21:59 NIV Bilevel 30.00 01/05/23 21:59 85 19 99 30.00 01/05/23 21:00 81 15 118/87 (101) 96 Nasal Cannula 1.00 01/05/23 20:00 80 17 117/83 (96) 98 Nasal Cannula 1.00 01/05/23 19:20 96 Nasal Cannula 1.00 01/05/23 19:00 71 01/05/23 19:00 37.0 80 18 105/77 (86) 98 Nasal Cannula 1.00 01/05/23 18:52 98 Nasal Cannula 1.00 01/05/23 18:00 67 21 111/70 (84) 97 Nasal Cannula 1.00 01/05/23 17:00 68 21 106/69 (81) 96 Nasal Cannula 1.00 01/05/23 16:15 95 Nasal Cannula 1.00 01/05/23 16:00 71 27 122/82 (95) 96 Nasal Cannula 1.00 01/05/23 16:00 36.3 01/05/23 15:00 66 17 96/71 (79) 97 Nasal Cannula 1.00 01/05/23 14:26 98 Nasal Cannula 1.00 01/05/23 14:00 69 21 117/86 (96) 97 Nasal Cannula 1.00 01/05/23 13:00 69 14 120/81 (94) 97 Nasal Cannula 1.00 01/05/23 12:26 80 01/05/23 12:21 70 122/82 01/05/23 12:00 95 Nasal Cannula 1.00 01/05/23 12:00 75 26 114/76 (89) 97 Nasal Cannula 1.00 01/05/23 11:53 36.2 01/05/23 11:02 Nasal Cannula 1.00 01/05/23 11:00 70 20 122/82 (95) 98 Nasal Cannula 2.00 01/05/23 10:20 96 Nasal Cannula 2.00 01/05/23 10:00 74 33 112/76 (88) 97 Nasal Cannula 2.00 I & O 01/06/23 07:00 Intake Total 1500 ml Output Total 4100 ml Balance -2600 ml Height & Weight Height: 5'4.00" Weight: 232lbs. oz. 105.453273ws; 35.89 BMI Method:Stated General Appearance: No Apparent Distress, WD/WN, Chronically ill HEENT: PERRL/EOMI, TMs Normal, Normal ENT Inspection, Pharynx Normal, Moist Mucous Membranes Neck: Full Range of Motion, Normal Inspection, Non Tender, Supple, Carotid Bruit Respiratory: No Accessory Muscle Use, No Respiratory Distress, Decreased Breath Sounds, Wheezing Cardiovascular: Regular Rate, Rhythm Capillary Refill: Less Than 3 Seconds Gastrointestinal: non tender, soft Extremity: No Pedal Edema, Pedal Edema (trace bilateral edema) Neurologic/Psychiatric: Alert, Oriented x3, No Motor/Sensory Deficits, Normal Mood/Affect Skin: Normal Color, Warm/Dry Lymphatic: No Adenopathy Results Lab Laboratory Tests 01/05/23 04:45 01/06/23 03:35 Assessment/Plan Assessment/Plan 1 MANUELA WATTS MD Jan 06, 2023 09:54
[2023-01-06] MEDS ORDERED: POT PHOS/NA PHOS (K-PHOS NEUTRAL) PO SCH (10:00)
[2023-01-06] MEDS ORDERED: KCL 10 MEQ TAB (MICRO K) PO ONE (10:45)
[2023-01-06] MEDS: AMOXICILLIN 500 MG CAPSULE PO SCH ×2 (13:00→20:13)
--- NOTE | 2023-01-06 13:44 | Progress Note ---
Subjective Subjective/Events-last exam Patient states that she is feeling much better but still feeling weak. Tolerating PO diet and short distances for ambulation. Review of Systems General: Fatigue Pulmonary: Dyspnea; No Cough Cardiovascular: No: Chest Pain, Palpitations, Edema Gastrointestinal: No: Nausea, Vomiting, Abdominal Pain, Diarrhea, Constipation Neurological: Weakness, Incoordination Focused Exam Time of Focused Exam: 02:00 Objective Exam Last Set of Vital Signs Vital Signs Date Time Temp Pulse Resp B/P (MAP) Pulse Ox O2 Delivery O2 Flow Rate FiO2 01/06/23 12:00 73 13 113/80 (91) 97 Nasal Cannula 1.00 01/06/23 07:32 36.2 01/06/23 03:40 30 Capillary Refill : Less Than 3 Seconds I&O Intake and Output 01/06/23 00:00 Intake Total 1150 ml Output Total 4250 ml Balance -3100 ml Intake Oral 1000 ml IV Total 150 ml Output Urine Total 4250 ml General: Alert, Oriented X3, No Acute Distress Lungs: Clear to Auscultation, Normal Air Movement Heart: Regular Rate, No Murmurs Abdomen: Normal Bowel Sounds, Soft, No Tenderness Extremities: No Edema, No Tenderness/Swelling Neuro: Normal Speech Results/Procedures Lab Laboratory Tests 01/05/23 15:44: Glucometer 120H 01/05/23 20:48: Glucometer 116H 01/06/23 03:35: White Blood Count 10.7, Red Blood Count 3.73L, Hemoglobin 11.0L, Hematocrit 34L, Mean Corpuscular Volume 90, Mean Corpuscular Hemoglobin 30, Mean Corpuscular Hemoglobin Concent 33, Red Cell Distribution Width 13.4, Platelet Count 285, Mean Platelet Volume 10.3, Immature Granulocyte % (Auto) 0, Neutrophils (%) (Auto) 72, Lymphocytes (%) (Auto) 17, Monocytes (%) (Auto) 11, Eosinophils (%) (Auto) 0, Basophils (%) (Auto) 0, Neutrophils # (Auto) 7.7, Lymphocytes # (Auto) 1.8, Monocytes # (Auto) 1.1H, Eosinophils # (Auto) 0.0, Basophils # (Auto) 0.0, Immature Granulocyte # (Auto) 0.0, Sodium Level 139, Potassium Level 3.1L, Chloride Level 105, Carbon Dioxide Level 24, Anion Gap 10, Blood Urea Nitrogen 14, Creatinine 0.70, Estimat Glomerular Filtration Rate 98, BUN/Creatinine Ratio 20, Glucose Level 111H, Calcium Level 8.1L, Corrected Calcium 8.7, Phosphorus Level 1.2L, Magnesium Level 1.8, Total Bilirubin 0.7, Aspartate Amino Transf (AST/SGOT) 24, Alanine Aminotransferase (ALT/SGPT) 34, Alkaline Phosphatase 80, Total Protein 5.6L, Albumin 3.2 01/06/23 11:35: Glucometer 132H Microbiology 01/03/23 MRSA Screen - Final, Complete MRSA not isolated 01/03/23 Blood Culture - Preliminary, Resulted No growth 01/03/23 Urine Culture - Final, Complete NO GROWTH Assessment/Plan Assessment/Plan (1) Acute on chronic respiratory failure with hypoxia Status: Acute Assessment & Plan: 01/05: Will continue to wean oxygen during the day as tolerated, patient wears oxygen at night, CXR in AM if unable to wean oxygen 01/06: Continue titration as tolerated, will order ambulatory oxygen study for home (2) Cardiogenic shock Status: Acute Assessment & Plan: 01/05: Cardiology consulted and managing, appreciate r ecommendations (3) Pulmonary edema Status: Acute Qualifiers: Qualified Codes: J81.0 - Acute pulmonary edema (4) NSTEMI (non-ST elevated myocardial infarction) Status: Acute Assessment & Plan: 01/05: Cardiology managing (5) Lactic acidosis Status: Resolved (6) Non-ischemic cardiomyopathy Status: Chronic (7) Hypothyroidism Status: Chronic Assessment & Plan: - Continue home meds Qualifiers: Qualified Codes: E03.9 - Hypothyroidism, unspecified (8) Non-insulin dependent type 2 diabetes mellitus Status: Chronic Assessment & Plan: - Diet controlled, not on meds at home, A1c pending 01/06: A1c 5.5, well controlled DM (9) H/O alcohol abuse Status: Chronic (10) Physical debility Status: Acute Assessment & Plan: 01/06: PT to eval (11) DVT prophylaxis Status: Acute Assessment & Plan: - FOZIA Ramos MD Jan 06, 2023 13:44
[2023-01-06 13:48] VITALS: BP 99/73
[2023-01-06 15:37] VITALS: BP 99/67
[2023-01-06] MEDS ORDERED: POT PHOS/NA PHOS (K-PHOS NEUTRAL) PO ONE (17:00)
[2023-01-06 17:08] VITALS: BP 82/65
[2023-01-06 19:07] VITALS: BP 108/73
[2023-01-06] MEDS: ENOXAPARIN 40 MG/0.4 ML SYRINGE SC SCH (20:15)
[2023-01-06] MEDS: MONTELUKAST 10 MG (SINGULAIR) TAB PO SCH (20:15)
[2023-01-06 23:30] VITALS: BP 80/45
[2023-01-07 00:45] VITALS: BP 101/58
[2023-01-07] MEDS: RT-ALBUTEROL/IPRATROPIUM 3 ML (DUONEB) VIAL INH SCH ×2 (02:56→06:40)
[2023-01-07 03:51] VITALS: BP 93/56
[2023-01-07 04:31] LABS: BASOPHILS % (AUTO) 0 % (0-10); EOSINOPHILS # (AUTO) 0.1 10^3/uL (0.0-0.3); EOSINOPHILS % (AUTO) 1 % (0-10); HEMATOCRIT 34 % (35-52); HEMOGLOBIN 10.9 g/dL (11.5-16.0); LYMPHOCYTES # (AUTO) 2.2 10^3/uL (1.0-4.0); LYMPHOCYTES % (AUTO) 27 % (12-44); MEAN CORPUSCULAR HEMOGLOBIN 29 pg (25-34); MEAN CORPUSCULAR HGB CONC 32 g/dL (32-36); MEAN CORPUSCULAR VOLUME 90 fL (80-99); MEAN PLATELET VOLUME 10.2 fL (9.0-12.2); MONOCYTES # (AUTO) 0.8 10^3/uL (0.0-1.0); MONOCYTES % (AUTO) 10 % (0-12); NEUTROPHILS # (AUTO) 4.9 10^3/uL (1.8-7.8); NEUTROPHILS % (AUTO) 61 % (42-75); PLATELET COUNT 311 10^3/uL (130-400); WHITE BLOOD COUNT 8.1 10^3/uL (4.3-11.0)
[2023-01-07 04:48] LABS: ALBUMIN 3.2 GM/DL (3.2-4.5); POTASSIUM 3.3 MMOL/L (3.6-5.0)
[2023-01-07 04:49] LABS: CALCIUM 8.4 MG/DL (8.5-10.1)
[2023-01-07 04:50] LABS: TOTAL PROTEIN 5.9 GM/DL (6.4-8.2)
[2023-01-07 04:52] LABS: BILIRUBIN,TOTAL 0.4 MG/DL (0.1-1.0)
[2023-01-07 04:54] LABS: CREATININE SERUM 0.66 MG/DL (0.60-1.30); PHOSPHORUS 2.3 MG/DL (2.3-4.7)
[2023-01-07 04:57] LABS: MAGNESIUM 1.9 MG/DL (1.6-2.4)
[2023-01-07] MEDS: inSUlin ASPART (NovoLOG) 1 UNIT/0.01 ML (CHARGE PER UNIT) SC SCH ×2 (06:14→11:00)
[2023-01-07] MEDS: FLUTICASONE/VILANTEROL 100 MCG 14'S (BREO) IH SCH (06:40)
[2023-01-07] MEDS ORDERED: KCL 20 MEQ TAB (K-DUR) PO ONE (06:45)
[2023-01-07] MEDS: POTASSIUM CL 10MEQ/50ML IVPB 50 ML IV SCH ×2 (07:17→07:18)
[2023-01-07] MEDS: EMPAGLIFLOZIN 10 MG TABLET PO SCH (07:30)
[2023-01-07] MEDS: SACUBITRIL/VALSARTAN 24/26 MG (ENTRESTO) TABLET PO SCH ×2 (07:30→07:36)
[2023-01-07] MEDS: PANTOPRAZOLE 20 MG TABLET (PROTONIX) PO SCH (07:30)
[2023-01-07] MEDS: AMOXICILLIN 500 MG CAPSULE PO SCH ×2 (07:30→13:42)
[2023-01-07] MEDS: carvediloL 3.125 MG TABLET PO SCH ×2 (07:30→07:36)
[2023-01-07] MEDS: ASPIRIN enteric coated 81MG TABLET PO SCH (07:30)
[2023-01-07] MEDS: PARoxetine 20 MG (PAXIL) TAB PO SCH (07:30)
[2023-01-07 07:34] VITALS: BP 92/56
--- NOTE | 2023-01-07 10:25 | Cardiology Progress Note ---
Subjective Date Seen by Provider: Jan 07, 2023 Time Seen by Provider: 08:20 Subjective/Events-last exam Patient is sitting up in bed, denies any chest pain or dyspnea. Focused Exam Time of Focused Exam: 02:00 Objective-Cardiology Exam Last Set of Vital Signs Vital Signs 01/06/23 01/07/23 17:08 11:53 Temp 37.0 Pulse 61 Resp 20 B/P (MAP) 117/76 (90) Pulse Ox 98 O2 Delivery Nasal Cannula O2 Flow Rate 4.00 FiO2 28 I&O Intake and Output 01/07/23 00:00 Intake Total 2550 ml Output Total 1875 ml Balance 675 ml Intake Oral 1150 ml IV Total 1400 ml Output Urine Total 1875 ml # Voids 1 General: Alert, Oriented X3, No Acute Distress HEENT: Atraumatic, PERRLA Neck: Supple, No JVD, No Thyromegaly Lungs: Clear to Auscultation, Normal Air Movement Heart: Regular Rate, No Murmurs Abdomen: Normal Bowel Sounds, Soft, No Tenderness Extremities: No Edema, No Tenderness/Swelling Skin: No Rashes, No Breakdown, No Significant Lesion Neuro: Normal Speech Psych/Mental Status: Mental Status NL, Mood NL Results Lab Laboratory Tests 01/07/23 04:18 A/P-Cardiology Admission Diagnosis Acute respiratory failure Hypotensive shock Non-ST elevation myocardial infarction Lactic acidosis Assessment/Plan Status post acute respiratory failure with shortness of breath Pulmonary edema, improving. Had an episode of increasing dyspnea last night Responded well to diuretics. Hypotensive shock, improved after IV fluid and Levophed. Cardiogenic shock due to severe cardiomyopathy Off dobutamine drip Patient has dilated cardiomyopathy with segmental wall motion abnormality Starting on low-dose beta-jesica I will proceed with primary prevention with a LifeVest CHF, Takotsubo cardiomyopathy, acute LV systolic dysfunction, EF 25-30% Continue to use low-dose beta-jesica and Entresto as blood pressure tolerated Lactic acidosis, improved with hydration, started on antibiotics Acute non-ST elevation myocardial infarction, had elevation in troponin Type II myocardial infarction Cardiac catheterization carried out on 01/03/2023 showing nonobstructive coronary artery disease with ejection fraction 25 to 30%. Elevated left ventricular end- diastolic pressure Started on Entresto and carvedilol with parameters to hold for systolic blood pressure less than 100 Diabetes mellitus, Managed by primary care physician Hypothyroidism, Managed by primary care physician History of marijuana use. History of polysubstance abuse including alcohol. Supervisory-Addendum Brief Supervisory Addendum Participated in pt care: history, MDM, physical Personally performed: exam, history, MDM Care discussed with: VANESSA Results interpretation: Verified all documentation Notes: Patient was seen and evaluated with Maritza, examination performed, management plan was discussed, agree with the current scribed note, I made few changes to the note using Italic font Patient was seen at bedside, sitting comfortably, feeling better No new complain Was borderline hypotensive Denied any chest pain Continue on current medication, okay for discharge and follow-up as an outpatient We will proceed with MARITZA De Souza Jan 07, 2023 10:25 NABIL SALDANA MD Jan 07, 2023 12:56
[2023-01-07 11:53] VITALS: BP 117/76
--- NOTE | 2023-01-07 14:36 | Discharge Summary ---
Diagnosis/Chief Complaint Date of Admission Jan 03, 2023 at 02:56 Date of Discharge 01/07/23 Admission Diagnosis Admission Diagnosis See problem list Discharge Diagnosis See below Problems/Diagnosis: (1) Acute on chronic respiratory failure with hypoxia Assessment & Plan: 01/05: Will continue to wean oxygen during the day as tolerated, patient wears oxygen at night, CXR in AM if unable to wean oxygen 01/06: Continue titration as tolerated, will order ambulatory oxygen study for home 01/07: Patient did not qualify for oxygen, continue home order for noctural oxygen Status: Acute (2) Cardiogenic shock Assessment & Plan: 01/05: Cardiology consulted and managing, appreciate recommendations Status: Acute (3) Pulmonary edema Qualifiers: Qualified Codes: J81.0 - Acute pulmonary edema Status: Resolved (4) NSTEMI (non-ST elevated myocardial infarction) Assessment & Plan: 01/05: Cardiology managing Status: Acute (5) Lactic acidosis Status: Resolved Resolution Date/Time: 01/05/23 @ 12:30 (6) Non-ischemic cardiomyopathy Status: Chronic (7) Hypothyroidism Assessment & Plan: - Continue home meds Qualifiers: Qualified Codes: E03.9 - Hypothyroidism, unspecified Status: Chronic (8) Non-insulin dependent type 2 diabetes mellitus Assessment & Plan: - Diet controlled, not on meds at home, A1c pending 01/06: A1c 5.5, well controlled DM Status: Chronic (9) H/O alcohol abuse Status: Chronic (10) Physical debility Assessment & Plan: 01/06: PT to eval Status: Acute (11) DVT prophylaxis Assessment & Plan: - Lovenox Status: Acute Discharge Summary-Simple/Stand Consultations Cardiology: Dr Patton Discharge Physical Examination Allergies: Coded Allergies: celecoxib (Verified Allergy, Mild, 03/01/20) doxycycline (Verified Allergy, Unknown, 05/06/21) sulfamethoxazole (Verified Allergy, Unknown, headache, 03/01/20) trimethoprim (Verified Allergy, Unknown, headache, 03/01/20) meloxicam (Verified Adverse Reaction, Unknown, 03/01/20) naproxen (Verified Adverse Reaction, Unknown, 03/01/20) Vitals & I&Os Vital Sign - Last 12Hours Date Time Temp Pulse Resp B/P (MAP) Pulse Ox O2 Delivery O2 Flow Rate FiO2 01/07/23 11:53 37.0 61 20 117/76 (90) 98 Nasal Cannula 4.00 01/06/23 17:08 28 Intake and Output 01/07/23 00:00 Intake Total 1670 ml Output Total 600 ml Balance 1070 ml General Appearance: Alert, Oriented X3, No Acute Distress Respiratory: Clear to Auscultation, Normal Air Movement Cardiovascular: Regular Rate, No Murmurs Abdominal: Normal Bowel Sounds, Soft, No Tenderness, No Masses Extremities: Other (trace swelling bilaterally) Skin: No Rashes, No Breakdown Neuro: Normal Speech Psych/Mental Status: Mental Status NL, Mood NL Hospital Course See final discharge diagnosis. Discharge Condition at discharge Stable Instructions to patient/family Please see electronic discharge instructions given to patient. Discharge Medications Reviewed and agree with Discharge Medication list on patient's Discharge Instru ction sheet FOZIA BLAKE MD Jan 07, 2023 14:36
[2023-01-07] MEDS ORDERED: ASPI-1238 PO (14:40)
[2023-01-07] MEDS ORDERED: AMOX500C2 PO (14:40)
[2023-01-07] MEDS ORDERED: IPRA3AMP31 IH (14:40)
[2023-01-07] MEDS ORDERED: CARV3.122 PO (14:40)
[2023-01-07] MEDS ORDERED: EMPA10TA PO (14:40)
[2023-01-07] MEDS ORDERED: SACU1TAB2 PO (14:40)
--- NOTE | 2023-01-07 14:41 | Discharge Summary ---
Discharge [facility] Discharge Medications New, Converted or Re-Newed RX: Transmitted to Pharmacy New Medications: Ipratropium/Albuterol Sulfate (Iprat-Albut 0.5-3(2.5) mg/3 ml) 0.5 Mg-3 Mg (2.5 Mg Base)/3 Ml Ampul.neb 3 ML IH Q6H PRN for SHORTNESS OF BREATH, #1 EACH Amoxicillin (Amoxicillin) 500 Mg Capsule 500 MG PO TID for 5 Days, #15 CAP Aspirin (Aspirin EC) 81 Mg Tablet.dr 81 MG PO DAILY, #30 TAB Carvedilol (Carvedilol) 3.125 Mg Tablet 3.125 MG PO BID, #60 TAB Empagliflozin (Jardiance) 10 Mg Tablet 10 MG PO DAILY, #30 TAB Sacubitril/Valsartan (Entresto 24 mg-26 mg Tablet) 24 Mg-26 Mg Tablet 1 TAB PO BID, #60 TAB Continued Medications: Albuterol Sulfate (Albuterol Sulfate) 2.5 Mg/0.5 Ml Vial.neb 2.5 MG INH Q6H PRN for SHORTNESS OF BREATH, EACH Cetirizine HCl (Cetirizine HCl) 10 Mg Tablet 10 MG PO HS, TAB Fluticasone/Salmeterol (Advair 250-50 Diskus) 250 Mcg-50 Mcg/Dose Blst.w.dev 1 EACH IH BID Levothyroxine Sodium (Levothyroxine Sodium) 50 Mcg Tablet 50 MCG PO DAILY, TAB Montelukast Sodium (Montelukast Sodium) 10 Mg Tablet 10 MG PO DAILY, TAB Multivitamin (Multivitamin) 1 Each Tablet 1 EACH PO DAILY, TAB Omeprazole (Omeprazole) 20 Mg Capsule.dr 20 MG PO BID, CAP Paroxetine HCl (Paroxetine HCl) 40 Mg Tablet 60 MG PO DAILY, TAB TAKES 1 & (50MG) TABS Discontinued Medications: Diclofenac Sodium (Diclofenac Sodium) 75 Mg Tablet.dr 75 MG PO BID, TAB Hydrochlorothiazide (Hydrochlorothiazide) 50 Mg Tablet 50 MG PO DAILY, TAB Losartan Potassium (Losartan Potassium) 50 Mg Tablet 50 MG PO DAILY, TAB Patient Instructions Goal/Follow Up Appt: 1 week with PCP Activity & Diet Discharge Diet: ADA Diet, Cardiac Diet Activity as Tolerated: Yes FOZIA BLAKE MD Jan 07, 2023 14:41
[2023-01-07 15:39] VITALS: BP 117/76
== END 2023-01-07 15:41 | disposition home or self-care (01) | DRG 280 ==
LOC: EDUNIT# 23:24 → ER 23:27 → ICU 01-03 02:56 → 4TH 01-06 13:15
PROVIDERS: ADMIT Internal Medicine; ATTEND Family Medicine
PROC: 4A023N7 Measurement of Cardiac Sampling and Pressure, Left Heart, Percutaneous Approach (ICD-10-PCS; principal; 2023-01-03)
PROC: B2111ZZ Fluoroscopy of Multiple Coronary Arteries using Low Osmolar Contrast (ICD-10-PCS; 2023-01-03)
PROC: B2151ZZ Fluoroscopy of Left Heart using Low Osmolar Contrast (ICD-10-PCS; 2023-01-03)
PROC: B3101ZZ Fluoroscopy of Thoracic Aorta using Low Osmolar Contrast (ICD-10-PCS; 2023-01-03)
PROC: 5A09357 Assistance with Respiratory Ventilation, Less than 24 Consecutive Hours, Continuous Positive Airway Pressure (ICD-10-PCS; 2023-01-04)
DX: I51.81 Takotsubo syndrome (principal); I21.A1 Myocardial infarction type 2; I50.21 Acute systolic (congestive) heart failure; J96.21 Acute and chronic respiratory failure with hypoxia; R57.0 Cardiogenic shock; J44.1 Chronic obstructive pulmonary disease with (acute) exacerbation; N17.9 Acute kidney failure, unspecified; E87.20 Acidosis, unspecified; I45.2 Bifascicular block; F12.20 Cannabis dependence, uncomplicated; I11.0 Hypertensive heart disease with heart failure; F41.9 Anxiety disorder, unspecified; F32.A Depression, unspecified; I95.9 Hypotension, unspecified; E11.65 Type 2 diabetes mellitus with hyperglycemia; E03.9 Hypothyroidism, unspecified; E66.9 Obesity, unspecified; Z68.35 Body mass index [BMI] 35.0-35.9, adult; K21.9 Gastro-esophageal reflux disease without esophagitis; M19.90 Unspecified osteoarthritis, unspecified site; Z79.899 Other long term (current) drug therapy; Z88.6 Allergy status to analgesic agent; Z88.2 Allergy status to sulfonamides; Z91.09 Other allergy status, other than to drugs and biological substances; Z20.822 Contact with and (suspected) exposure to COVID-19
CPT/HCPCS: 36221; 36415; 36430; 36600; 51702; 71045; 71275; 74177; 80053; 80061; 80306; 80320; 81000; 82150; 82805; 82947; 83036; 83605; 83690; 83735; 83880; 84100; 84439; 84443; 84484; 85007; 85025; 85027; 85379; 85610; 85730; 87040; 87081; 87088; 87449; 87636; 93005; 93306; 93458; 94640; 94660; 94760; 94761; 96372; 96374; 96375